=== PATIENT | female | born 1965 | race Hispanic/Latino ===

== ENCOUNTER 2018-02-19 13:55 | Inpatient (IN) | payer MEDICARE, BC ==
[~2018-02-19] VITALS: Ht 157.5 cm; Wt 96.2 kg
[~2018-02-19 13:55] MED LIST: ALDACTONE50 MG PO; FUROSEMIDE40 MG PO; PANTOPRAZOLE SO40 MG PO; PRILOSEC40 MG PO; URSODIOL300 MG PO; ZINC SULFATE220 MG PO
[2018-02-19] MEDS ORDERED: ONDANSETRON HCL INJ 2 MG/ML VIAL IV STA (14:40)
[2018-02-19] MEDS ORDERED: MORPHINE SULFATE INJ 4 MG/ML INJ IV STA (14:40)
[2018-02-19] MEDS ORDERED: SODIUM CHLORIDE 0.9% 1000ML 1,000 ML IV STA (14:40)
[2018-02-19] MEDS ORDERED: PANTOPRAZOLE 40 MG 10ML VIAL IV STA (14:40)
[2018-02-19] MEDS ORDERED: PIPER-TAZ 3.375 GM 50 ML IV ONE (14:45)
[2018-02-19] MEDS ORDERED: IBUPROFEN 600 MG TAB PO STA (15:11)
[2018-02-19] MEDS ORDERED: LOPERAMIDE HCL 2 MG CAP PO ONE (15:15)
[2018-02-19 15:27] LABS: CLARITY,URINE SL CLOUDY (CLEAR); COLOR,URINE RED (YELLOW); LEUKOCYTE ESTERASE ,URINE NEGATIVE (NEGATIVE)
[2018-02-19 15:28] LABS: BILIRUBIN,URINE 2+ (NEGATIVE); KETONES,URINE 1+ (NEGATIVE); PROTEIN,URINE DIPSTICK TRACE (NEGATIVE); URINE UROBILINOGEN 4 mg/dL (0.2 - 1)
[2018-02-19 15:29] LABS: NITRITE,URINE POSITIVE (NEGATIVE)
[2018-02-19 15:49] LABS: EPITHELIAL CELLS,URINE MODERATE /LPF
[2018-02-19 15:51] LABS: BACTERIA,URINE RARE /HPF; RBC,URINE 21-50 /HPF (0-5); WBC,URINE (MAN) 0-5 /HPF (0-5)
[2018-02-19 15:55] LABS: ALANINE AMINOTRANSFERASE 27 IU/L (0-55); ALBUMIN 2.6 g/dL (3.5-5.0); ALBUMIN/GLOBULIN RATIO 0.7 (0.8-2.0); ALKALINE PHOSPHATASE 101 IU/L (40-150); AMYLASE 79 U/L (25-125); ANION GAP 11.3 mmol/L (8-16); BLOOD UREA NITROGEN 7 mg/dL (7-26); BUN/CREATININE RATIO 15 (6-25); CALCIUM 7.9 mg/dL (8.4-10.2); CARBON DIOXIDE 20 mmol/L (22-29); CHLORIDE 107 mmol/L (98-107); CREATININE, SERUM 0.47 mg/dL (0.57-1.11); EST GLOMERULAR FILTRATION RATE > 60 ML/MIN (60-); GLUCOSE 89 mg/dL (74-118); LIPASE 16 U/L (8-78); POTASSIUM 4.3 mmol/L (3.5-5.1); SODIUM 134 mmol/L (136-145)
[2018-02-19 16:15] LABS: BASOPHILS % 0.4 % (0.0-1.0); EOSINOPHILS % 0.2 % (0.0-6.0); HEMATOCRIT 26.9 % (34.2-44.1); HEMOGLOBIN 9.2 g/dL (12.0-16.0); LYMPHOCYTES # (AUTO) 0.3 (1.0-3.2); LYMPHOCYTES % 5.3 % (18.0-39.1); MEAN CORPUSCULAR HEMOGLOBIN 35.9 pg (28-32); MEAN CORPUSCULAR HGB CONC 34.2 g/dL (31-35); MEAN CORPUSCULAR VOLUME 105.1 fL (81-99); MONOCYTES # (AUTO) 0.5 (0.2-0.8); MONOCYTES % 9.1 % (4.4-11.3); NEUTROPHILS # (AUTO) 4.1 (2.1-6.9); NEUTROPHILS % 84.2 % (38.7-80.0); RED BLOOD COUNT 2.56 x10e6/uL (3.6-5.1); RED CELL DISTRIBUTION WIDTH 15.7 % (11.7-14.4)
--- NOTE | 2018-02-19 16:23 | Diagnostic Imaging Report ---
EXAM: Single AP view of the chest (Portable). COMPARISON: Chest radiograph 03/16/2017 INDICATION: \S\ERMD ORDER \[id number] \S\1530 \S\Y FINDINGS: Single portable AP view of the chest. The visualized bones and soft tissues, cardiac silhouette lungs, pleura appear unchanged. IMPRESSION: 1. Lines/tubes: None 2. Stable moderate enlargement of the cardiac silhouette with associated interstitial edema. 3. More confluent airspace opacity in the medial right lower lobe likely due to edema rather than pneumonia. Continue to follow-up for evaluation of developing consolidation. Signed by: Dr. Kailee Ceja M.D. on 02/19/2018 4:20 PM
[2018-02-19 16:31] LABS: INR 2.03; PROTHROMBIN TIME 21.6 seconds (11.9-14.5)
[2018-02-19 16:32] LABS: PARTIAL THROMBOPLASTIN TIME 46.2 seconds (23.8-35.5)
[2018-02-19 16:33] LABS: PLATELET COUNT 18 x10e3/uL (140-360)
[2018-02-19] MEDS ORDERED: SODIUM CHLORIDE 0.9% 1000ML 1,000 ML ONE (17:16)
--- NOTE | 2018-02-19 17:24 | Diagnostic Imaging Report ---
EXAM: CT Abdomen and Pelvis WITHOUT contrast INDICATION: \S\ABD PAIN AND FEVER \S\[id number] \S\1614 COMPARISON: CT abdomen and pelvis 03/13/2017 TECHNIQUE: Abdomen and pelvis were scanned utilizing a multidetector helical scanner from the lung base to the pubic symphysis without administration of IV contrast. Absence of intravenous contrast decreases sensitivity for detection of focal lesions and vascular pathology. Coronal and sagittal reformations were obtained. Routine protocol was performed. IV CONTRAST: None. ORAL CONTRAST: Water RADIATION DOSE: Total DLP: 684.6 mGy*cm Estimated effective dose: (DLP x 0.015 x size factor) mSv COMPLICATIONS: None FINDINGS: LINES and TUBES: None. LOWER THORAX: 2.4 cm water attenuation nodular density adjacent to the left ventricular apex on series 2, image 10 is increased since prior exam which measured 1.2 cm and may represent loculated fluid. Trace pericardial effusion. Small hiatal hernia, unchanged. HEPATOBILIARY: Cirrhosis. No focal hepatic lesions on limited evaluation due to lack of IV contrast. No biliary ductal dilation. GALLBLADDER: Cholecystectomy. SPLEEN: Splenomegaly, unchanged. PANCREAS: No focal masses or ductal dilatation. ADRENALS: No adrenal nodules KIDNEYS/URETERS: No hydronephrosis. No cystic or solid mass lesions. 1 mm right inferior pole and few 2 mm left renal calcified stones. GI TRACT: No abnormal distention or evidence of bowel obstruction. Wall thickening cannot be evaluated due to lack of oral contrast. Appendix is not visualized. PELVIC ORGANS/BLADDER: Hysterectomy. Urinary bladder appears unremarkable. LYMPH NODES: Multiple mildly enlarged noncalcified gastrohepatic, periportal, perigastric lymph nodes measuring up to 1.7 cm remain unchanged. VESSELS: Main portal vein is dilated measuring 1.8 cm in diameter. Mild scattered atherosclerotic calcifications of the abdominal aorta. PERITONEUM / RETROPERITONEUM: Unchanged moderate sized low-attenuation ascites throughout the abdomen and pelvis. No free air. BONES: Unremarkable. SOFT TISSUES: Unremarkable. IMPRESSION: 1. Persistent moderate amount of low-attenuation ascites. No new loculated fluid collections in the abdomen and pelvis. 2. Cirrhosis with portal hypertension manifested by splenomegaly and dilated main portal vein, unchanged. 3. Bilateral nonobstructing nephrolithiasis. Signed by: Dr. Kailee Ceja M.D. on 02/19/2018 5:21 PM
[2018-02-19] MEDS ORDERED: SODIUM CHLORIDE 0.9% 1000ML 1,000 ML IV ONE (18:00)
[2018-02-19] MEDS ORDERED: RIFAMPIN300 MG PO (18:25)
[2018-02-19] MEDS ORDERED: LACTULOSE20 GM/30 M PO (18:25)
[2018-02-19 18:33] LABS: EOSINOPHILS % (MANUAL) 1 % (0-7); LYMPHOCYTES % (MANUAL) 7 % (19-48); MONOCYTES % (MANUAL) 9 % (3.4-9.0); NEUTROPHILS % (MANUAL) 83 % (40-74)
[2018-02-19 18:35] LABS: PLATELET ESTIMATE MARKEDLY DECREASED; PLATELET MORPHOLOGY COMMENT NORMAL
[2018-02-19 18:37] LABS: ANISOCYTOSIS SLIGHT; RBC MORPHOLOGY COMMENT NORMAL
[2018-02-19] MEDS ORDERED: CHOLESTYRAMINE 4 GM PACKET PO PRN (18:45)
[2018-02-19 20:00] VITALS: BP 110/56
[2018-02-19 20:10] VITALS: BP 110/56
[2018-02-19] MEDS: FUROSEMIDE INJ 10 MG/ML 4 ML VIAL IV SCH (21:17)
[2018-02-19] MEDS: SODIUM CHLORIDE 0.9% 1000ML 1,000 ML IV SCH (21:17)
[2018-02-19] MEDS: MORPHINE SULFATE 2 MG/ML SYR IV PRN (21:31)
[2018-02-20] VITALS (8 sets, daily range): BP systolic 98–132; BP diastolic 50–67
[2018-02-20] MEDS: PIPER-TAZ 3.375 GM 50 ML IV SCH ×4 (01:55→17:50)
[2018-02-20 06:07] LABS: BASOPHILS % 0.2 % (0.0-1.0); EOSINOPHILS % 0.4 % (0.0-6.0); HEMATOCRIT 25.9 % (34.2-44.1); HEMOGLOBIN 8.6 g/dL (12.0-16.0); LYMPHOCYTES # (AUTO) 0.4 (1.0-3.2); MEAN CORPUSCULAR HEMOGLOBIN 36.1 pg (28-32); MEAN CORPUSCULAR HGB CONC 33.2 g/dL (31-35); MEAN CORPUSCULAR VOLUME 108.8 fL (81-99); MONOCYTES # (AUTO) 0.6 (0.2-0.8); MONOCYTES % 11.3 % (4.4-11.3); NEUTROPHILS # (AUTO) 4.3 (2.1-6.9); NEUTROPHILS % 80.5 % (38.7-80.0); RED BLOOD COUNT 2.38 x10e6/uL (3.6-5.1); RED CELL DISTRIBUTION WIDTH 16.2 % (11.7-14.4)
[2018-02-20 06:23] LABS: INR 2.28; PROTHROMBIN TIME 23.6 seconds (11.9-14.5)
[2018-02-20 06:24] LABS: PARTIAL THROMBOPLASTIN TIME 53.2 seconds (23.8-35.5)
[2018-02-20 06:29] LABS: ALANINE AMINOTRANSFERASE 26 IU/L (0-55); ALBUMIN 2.4 g/dL (3.5-5.0); ALBUMIN/GLOBULIN RATIO 0.6 (0.8-2.0); ALKALINE PHOSPHATASE 102 IU/L (40-150); ANION GAP 10.2 mmol/L (8-16); BLOOD UREA NITROGEN 9 mg/dL (7-26); BUN/CREATININE RATIO 18 (6-25); CALCIUM 7.5 mg/dL (8.4-10.2); CARBON DIOXIDE 22 mmol/L (22-29); CHLORIDE 111 mmol/L (98-107); CREATININE, SERUM 0.51 mg/dL (0.57-1.11); EST GLOMERULAR FILTRATION RATE > 60 ML/MIN (60-); GLUCOSE 101 mg/dL (74-118); POTASSIUM 4.2 mmol/L (3.5-5.1); SODIUM 139 mmol/L (136-145)
[2018-02-20 06:37] LABS: PLATELET COUNT 13 x10e3/uL (140-360)
[2018-02-20] MEDS: SODIUM CHLORIDE 0.9% 1000ML 1,000 ML IV SCH ×2 (07:50→20:43)
[2018-02-20 07:53] LABS: BAND NEUTROPHILS % (MANUAL) 4 %; EOSINOPHILS % (MANUAL) 1 % (0-7); LYMPHOCYTES % (MANUAL) 6 % (19-48); METAMYELOCYTES % (MANUAL) 1 % (0-0); MONOCYTES % (MANUAL) 5 % (3.4-9.0); NEUTROPHILS % (MANUAL) 83 % (40-74); PLATELET ESTIMATE MARKEDLY DECREASED; PLATELET MORPHOLOGY COMMENT FEW LARGE
[2018-02-20 07:54] LABS: HYPOCHROMASIA MODERATE; RBC MORPHOLOGY COMMENT NORMAL
[2018-02-20] MEDS ORDERED: URSODIOL 300 MG CAP PO SCH (09:00)
[2018-02-20] MEDS: URSODIOL 500 MG PO SCH (09:00)
[2018-02-20] MEDS ORDERED: PANTOPRAZOLE 40 MG 10ML VIAL IV SCH (09:00)
[2018-02-20] MEDS: SPIRONOLACTONE 25 MG TAB PO SCH (09:00)
[2018-02-20] MEDS: FUROSEMIDE INJ 10 MG/ML 4 ML VIAL IV SCH (09:00)
--- NOTE | 2018-02-20 09:06 | Consultation ---
DATE OF CONSULTATION: CARDIOLOGY CONSULTATION REQUESTING PHYSICIAN: Dr. Kapoor REASON FOR CONSULTATION: Possible pericardial effusion. HISTORY OF PRESENT ILLNESS: Ms. Nicolás Greene is a 52-year-old lady with past medical history as listed below. Reportedly has been experiencing chest pain for the last 3 days. The patient states that it is a constant discomfort all across her chest. She has also been having some vomiting, diarrhea and nausea for the last 3 days. She also has a headache and backache. Has some abdominal discomfort. She has a history of cirrhosis and reportedly is waiting for a liver transplant and enrolled at [facility]. She was found to have a fatty liver. REVIEW OF SYMPTOMS CONSTITUTIONAL: Has some fatigue and weakness. HEENT: No headache, blurring of vision, seizures, syncope. CARDIOVASCULAR: Has chest pain. Has dyspnea. Has some orthopnea. No PND. RESPIRATORY: No cough. Has had some fever. No expectoration. GI: Had some abdominal discomfort. Has nausea, vomiting and diarrhea. : No dysuria, frequency or incontinence. ALLERGIES: IODINE. MEDICATIONS: See list. PAST MEDICAL HISTORY 1. History of primary biliary cirrhosis of liver on a transplant list at [facility]. States she has fatty liver. 2. History of thrombocytopenia. SOCIAL HISTORY: Does not smoke or drink. FAMILY HISTORY: Noncontributory. PHYSICAL EXAMINATION VITALS: Heart rate is 82. Blood pressure 118/57. Respiratory rate is 18. Temperature is 96.7. GENERAL: Moderately built and nourished lady. Awake, alert, not in any obvious distress. HEENT: Atraumatic. NECK: No JVD, bruit, thyromegaly or lymphadenopathy. CHEST: Decreased air entry at the bases. No adventitious sounds appreciated. CARDIOVASCULAR: First and 2nd heart sounds heard. No murmurs, rubs or gallops appreciated. ABDOMEN: Distended, possible ascites. Nontender. EXTREMITIES: Has 2 to 3+ edema. LABS: Sodium is 139, potassium 4.0, chloride is 111. Bicarb is 22. BUN is 9, creatinine 0.5. Glucose 101. Hemoglobin is 8.6, hematocrit is 25.9, platelets are 13. White count is 5.2. INR 2.2. Total bilirubin is 15.48. AST is 49. ALT is 26. Alk phos is 102. UA positive for nitrates. Troponin is normal. EKG shows sinus rhythm at 96 beats per minute, left anterior fascicular block. Nonspecific ST-T changes. Chest x-ray positive for consolidation in the right lower lobe. CT abdomen and pelvis: No acute disease. IMPRESSION 1. Chest pain. 2. Cirrhosis of liver. 3. Thrombocytopenia. 4. Fluid overload. 5. Urinary tract infection/cystitis. PLAN 1. Continue with diuretics. 2. Get echocardiogram to assess LV function and valvular function. Rule out pericardial effusion. 3. Patient is also on spironolactone, can continue the same. 4. Continue with other medications. 5. GI workup as indicated. Job#: [id number]
[2018-02-20] MEDS: POTASSIUM CHLORIDE 20 MEQ TAB CR PO SCH (09:48)
[2018-02-20] MEDS: PANTOPRAZOLE SOD 40 MG TABEC PO SCH (09:56)
[2018-02-20] MEDS: FUROSEMIDE 40 MG TAB PO SCH (09:57)
[2018-02-20] MEDS: ACETAMINOPHEN 325 MG TAB PO PRN (10:04)
[2018-02-20] MEDS ORDERED: RIFAMPIN 300 MG CAP PO SCH (12:00)
--- NOTE | 2018-02-20 14:16 | History and Physical ---
LOCATION: ER room 4. PRESENTING COMPLAINT: Fever with nausea, vomiting, and diarrhea for 3 days, got worsened today. HISTORY OF PRESENT ILLNESS: A 52-year-old female who was admitted from ER. Patient was brought to ER from home for fever with nausea, vomiting, and diarrhea for 3 days, got worsened today. Patient says she started watery diarrhea 3 days ago, was more than 5 bowel movements daily. She did not have any blood with stool or black stool. Patient had started fever yesterday 102 at home along with nausea and vomiting. She has vomited once this morning. Patient also complained of pain in her abdomen diffusely along with low back pain. She denies any trace of blood with vomitus. Patient had mild dysuria going on for months as per her statement. Denies any passage of blood with urine. She was on furosemide and spironolactone for cirrhosis with ascites. Patient had last abdominal paracentesis August of this year as per patient's statement. Patient's daughter interpreted for the patient. Patient only speaks Macedonian. Daughter is at bedside now. Patient also follows with [facility] for her cirrhosis of liver. Patient had general increment in her abdominal girth and leg swelling for last 1 month as per patient statement. Patient had traveled to [place] more than a month ago. At that time, she did not have any diarrhea. Patient denies any similar illness in the family. She also denies any consumption of unusual food. Patient denied any chest pain, shortness of breath, or palpitation at the present time. REVIEW OF SYSTEMS CONSTITUTIONAL: Fever as per HPI, mild chills and rigor along with fever and generalized weakness. ENT: No nasal congestion, no visual disturbance, and no earache. CARDIOVASCULAR: No chest pain, palpitation, or shortness of breath. PULMONARY: No cough, no hemoptysis. GI: Diffuse abdominal pain with watery diarrhea and nausea and vomiting as per HPI. No passage of bloody stool or black stool. No passage of blood with vomitus. : No hematuria. Mild dysuria for months as per patient's statement. MUSCULOSKELETAL, SKIN, LYMPHORETICULAR: Chronic low back pain. No other joint pain. No joint swelling. No skin rash. No swollen glands. NEUROLOGICAL: No loss of consciousness, seizure, or headache. 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 HISTORY OF PAST SURGERY: Hysterectomy and cholecystectomy. ALLERGIES: IODINE PER PATIENT'S NOTE. HOME MEDICATIONS: Furosemide 20 mg daily, spironolactone 50 mg daily, lactulose 15 gram p.o. b.i.d., and rifaximin 550 mg b.i.d. as per patient's daughter's statement. SOCIAL HISTORY: Patient lives at [place] with her family. HABITS: Denies smoking, drinking, or substance abuse history. FAMILY HISTORY: No positive family history of CAD or chronic liver disease. PHYSICAL EXAMINATION VITAL SIGNS: Blood pressure 153/79 at presentation, pulse 96, temperature 102.9, respirations 22, and SpO2 100% at room air. GENERAL: Alert, in moderate distress due to pain and nausea and vomiting. HEENT: NC, AT. Pupils equally reacting. Scleral icterus present bilaterally. No pallor. Oral mucosa moist. Coated tongue. small NECK: No JVD, no carotid bruit, no lymphadenopathy, no thyromegaly. HEART: S1 and S2 regular. No murmur. Tachycardia present. LUNGS: Air entry equal on both sides. No crackles. No rhonchi. ABDOMEN: Distended with ascites. Mild diffuse tenderness. No palpable masses. Bowel sounds active in all quadrants. EXTREMITIES: Bilateral ankle edema present, 1+. No cyanosis. NEUROLOGICAL: Motor grossly equal on both sides. No hepatic asterixis present. LABORATORY DATA: CBC: WBC 4.92, hemoglobin 9.2, hematocrit 23.9, platelets 18, MCV 105, RDW 15.7, neutrophils 84, and lymphocytes 5.3. Chemistry panel: Sodium 134, potassium 4.3, chloride 107, CO2 of 20, anion gap of 7, BUN 7, creatinine 0.47, glucose 89, lactic acid 14.9, and calcium 7.9. Total bilirubin 13.3, AST 61, ALT 27, alkaline phosphatase 101, total protein 6.5, bilirubin 2.6, globulin 3.9, amylase 79, and lipase 16. PT 21.6, INR 2.03. and PTT 46.2. Hemolysis, protein trace, glucose negative, ketone 1+, blood 4+, nitrate positive, bilirubin 2+, leukocyte esterase negative, rbc's 21-50, and wbc's 0-5. MICROBIOLOGY DATA: Blood culture and urine culture in progress. RADIOLOGICAL DATA: X-ray chest single view: Cardiac shadow with associated interstitial edema, more confluent airspace opacity in the medial right lower lobe, likely due to edema rather than pneumonia. CT abdomen and pelvis without contrast, lower thorax 2.4 cm, water attenuation noted with density in the left ventricular apex, may represent loculated fluid, trace pericardial effusion, small hiatal hernia unchanged, hepatobiliary cirrhosis, no focal hepatic lesion or lesion, limited evaluation due to lack of IV contrast, no biliary ductal dilatation, status post cholecystectomy, splenomegaly unchanged, pancreas no mass noted, kidneys no hydronephrosis and no cystic or solid lesion, 1-mm right inferior pole renal calcified stone. Urinary bladder appears unremarkable. Moderate amount of low-attenuation ascites. Cirrhosis with portal hypertension manifested by splenomegaly. Bilaterally nonobstructive nephrolithiasis. ASSESSMENT AND PLAN 1. High-spiking fever with nausea, vomiting, diarrhea, and abdominal pain. Patient had history of spontaneous bacterial peritonitis in the past. We would continue the patient on IV antibiotics. Follow culture report. We would request GI evaluation by Dr. Chun who is familiar with the patient from the past hospitalization 1 year ago. Patient follows up with [facility]. Patient had last abdominal paracentesis in August this year as per patient's statement at [facility]. 2. Probable urinary tract infection: Urinalysis showed nitrite positive, but wbc's 0. Patient has macroscopic hematuria. CT abdomen is positive for nonobstructive nephrolithiasis. Her hematuria is likely secondary to thrombocytopenia. We will monitor for now. Follow the urine culture report. Continue IV antibiotic empirically. 3. Severe thrombocytopenia: Patient has a history of chronic thrombocytopenia. She is not obviously bleeding from anywhere. We would monitor for now. We would follow recommendation by gastroenterology if needed or consult hematology Dr. Pena who is familiar with the patient from past hospitalization. 4. Coagulopathy: Patient's INR is more than 2 without any anticoagulant, likely coagulopathy secondary to cirrhosis of liver. We would monitor for now. We would hold any vitamin K for now. 5. Hyperbilirubinemia, appears conjugated hyperbilirubinemia with bilirubinuria due to cirrhosis of liver. Patient's CT abdomen is negative for any common bile duct obstruction or stone. She is status post cholecystectomy. We would check her direct bilirubin and follow with gastroenterology. 6. Portal hypertension, ascites, and esophageal varices: Patient's hemoglobin is 9.2 with macrocytic anemia. We would monitor for now. Check stool for occult blood. She does not need any packed RBC transfusion at this present time. Platelet transfusion would depend upon recommendation by offset label rewinder and marketing program manager. Patient did not pass any blood stool or vomitus as per her report. 7. Advanced directives: Patient is FULL CODE for now. Discharge plan would depend upon patient's response to treatment. Patient's prognosis is guarded in view of her advanced cirrhosis with critical thrombocytopenia and coagulopathy. Job#: [id number] NÉSTOR MTDD
[2018-02-20] MEDS ORDERED: OCTREOTIDE ACETATE 0.05 MG/ML AMP IV ONE (16:23)
[2018-02-20] MEDS ORDERED: LACTULOSE SYRUP 20 GM/30 ML UDC PO SCH (17:00)
[2018-02-20] MEDS ORDERED: PHYTONADIONE 10 MG/ML AMP SQ ONE ×2 (17:15→19:45)
[2018-02-20] MEDS: ONDANSETRON HCL INJ 2 MG/ML VIAL IV PRN (18:38)
[2018-02-20] MEDS: RIFAXIMIN 550 MG TABLET PO SCH (21:08)
[2018-02-20] MEDS ORDERED: SODIUM CHLORIDE 0.9% 50ML 50 ML ONE (22:54)
[2018-02-21] VITALS (7 sets, daily range): BP systolic 113–128; BP diastolic 56–64
[2018-02-21] MEDS: PIPER-TAZ 3.375 GM 50 ML IV SCH ×4 (05:05→17:19)
[2018-02-21 06:57] LABS: BASOPHILS % 0.3 % (0.0-1.0); EOSINOPHILS # (AUTO) 0.1 (0.0-0.4); EOSINOPHILS % 3.1 % (0.0-6.0); HEMATOCRIT 25.3 % (34.2-44.1); HEMOGLOBIN 8.2 g/dL (12.0-16.0); LYMPHOCYTES # (AUTO) 0.6 (1.0-3.2); LYMPHOCYTES % 14.9 % (18.0-39.1); MEAN CORPUSCULAR HEMOGLOBIN 36.1 pg (28-32); MEAN CORPUSCULAR HGB CONC 32.4 g/dL (31-35); MEAN CORPUSCULAR VOLUME 111.5 fL (81-99); MONOCYTES # (AUTO) 0.6 (0.2-0.8); MONOCYTES % 14.7 % (4.4-11.3); NEUTROPHILS # (AUTO) 2.5 (2.1-6.9); NEUTROPHILS % 66.2 % (38.7-80.0); RED BLOOD COUNT 2.27 x10e6/uL (3.6-5.1); RED CELL DISTRIBUTION WIDTH 16.3 % (11.7-14.4)
[2018-02-21 07:15] LABS: PLATELET COUNT 23 x10e3/uL (140-360)
[2018-02-21 07:34] LABS: ALANINE AMINOTRANSFERASE 25 IU/L (0-55); ALBUMIN 2.4 g/dL (3.5-5.0); ALBUMIN/GLOBULIN RATIO 0.7 (0.8-2.0); ALKALINE PHOSPHATASE 94 IU/L (40-150); BLOOD UREA NITROGEN 11 mg/dL (7-26); BUN/CREATININE RATIO 20 (6-25); CALCIUM 7.5 mg/dL (8.4-10.2); CARBON DIOXIDE 22 mmol/L (22-29); CHLORIDE 110 mmol/L (98-107); CREATININE, SERUM 0.56 mg/dL (0.57-1.11); EST GLOMERULAR FILTRATION RATE > 60 ML/MIN (60-); GLUCOSE 98 mg/dL (74-118); SODIUM 137 mmol/L (136-145)
[2018-02-21] MEDS: PANTOPRAZOLE SOD 40 MG TABEC PO SCH (07:55)
[2018-02-21 07:58] LABS: ANISOCYTOSIS SLIGHT; HYPOCHROMASIA MODERATE; PLATELET ESTIMATE MARKEDLY DECREASED; PLATELET MORPHOLOGY COMMENT NORMAL; RBC MORPHOLOGY COMMENT NORMAL
[2018-02-21] MEDS: RIFAXIMIN 550 MG TABLET PO SCH ×2 (08:05→20:52)
[2018-02-21] MEDS: FUROSEMIDE 40 MG TAB PO SCH (08:05)
[2018-02-21] MEDS: POTASSIUM CHLORIDE 20 MEQ TAB CR PO SCH (08:05)
[2018-02-21] MEDS: SPIRONOLACTONE 25 MG TAB PO SCH (08:05)
[2018-02-21] MEDS: URSODIOL 500 MG PO SCH (09:00)
[2018-02-21] MEDS: MORPHINE SULFATE 2 MG/ML SYR IV PRN (10:32)
[2018-02-21] MEDS: ONDANSETRON HCL INJ 2 MG/ML VIAL IV PRN (10:32)
[2018-02-21] MEDS: SODIUM CHLORIDE 0.9% 1000ML 1,000 ML IV SCH ×2 (11:10→22:43)
[2018-02-21] MEDS: METOCLOPRAMIDE HCL 10 MG TAB PO SCH ×4 (12:15→21:01)
[2018-02-21] MEDS ORDERED: PHYTONADIONE 10 MG/ML AMP SQ NR (12:15)
--- NOTE | 2018-02-21 14:41 | Consultation ---
DATE OF CONSULTATION: ROOM NUMBER: [id number] CHIEF COMPLAINT: Vomiting, diarrhea. REASON FOR CONSULTATION: Vomiting, diarrhea. HISTORY OF PRESENT ILLNESS: Patient is a 52-year-old female with past medica history of primary biliary cirrhosis of the liver, severe primary idiopathic thrombocytopenia and ascites, who presented to the ED with vomiting, diarrhea since last Tuesday along with the fever. When she had first came in, she did not have any melena; however, she reports having some black stools this morning. On review of labs, patient has a hemoglobin of 8.6. Patient states that she has had a history of autoimmune cirrhosis for about 14 years and she goes to the [facility] and is also on the transplant list. She had an EGD and colonoscopy about 2 weeks ago outpatient with Dr. Hoffman. On EGD, there was reflux and gastritis found. On colonoscopy, there were nonbleeding hemorrhoids. However, mucosa of the colon was normal. Patient states she does not take any medicine for her primary biliary cirrhosis and she has never had any overt signs of bleeding before. She is currently jaundiced. However, she denies any hematemesis or hematochezia. She denies any cough, joint pains or skin rash. MEDICATIONS: She has been on 1. Zosyn. 2. Lasix. 3. Protonix 40 mg. 4. Spironolactone 50 mg daily. 5. Lactulose 20 g. 6. Questran 4 g. ALLERGIES: SEE NURSE'S NOTES. SOCIAL HISTORY: No alcohol use, drug use or recreational drug use. FAMILY HISTORY: Noncontributory. PHYSICAL EXAM APPEARANCE: Alert, oriented times 3, in slight distress. EYES: Scleral icterus. Pupils midline. No lesions. NECK: Normal inspection. Neck supple. No JVD, no carotid bruit. CARDIOVASCULAR: Normal heart rate and rhythm. Heart sounds normal. Pulses normal. Rate and rhythm normal. No murmurs. RESPIRATORY: No respiratory distress. Breath sounds normal. Chest nontender. No accessory muscle use, decreased air movement or rales. ABDOMEN: Soft, slightly distended with some tenderness. No rebound tenderness. Normal bowel sounds. SKIN: Abnormal skin color, jaundiced. No rash. Normal skin turgor. EXTREMITIES: Normal range of motion. No calf tenderness. No lower extremity edema. NEURO: Alert, oriented times 3. No cranial nerve deficit. No motor deficit. No sensory deficit. Reflex normal. LABS: Hemoglobin 9.2, MCV 105.1, platelet count 18, neutrophils 84.2. INR 2.28. PT 23.6. AST 49, ALT 26, total bilirubin 15.4, amylase 79, lipase 16. Review of abdominal CT, persistent moderate amount of ascites. Cirrhosis with portal hypertension manifested by splenomegaly and dilated main portal vein. Bilateral nonobstructing nephrolithiasis. ASSESSMENT 1. Reported melena times 1. 2. History of primary biliary cirrhosis of the liver. 3. Severe primary idiopathic thrombocytopenia. 4. Anemia. 5. Hyperbilirubinemia. 6. History of ascites. PLAN 1. Patient has a recent EGD and colonoscopy done 2 weeks ago. At this point, we will monitor for any signs of bleeding and follow up results for fecal occult blood. 2. Started patient on octreotide. 3. Monitor H and H. Transfuse if less than 7. 4. Continue Protonix, lactulose, spironolactone, and furosemide. Monitor potassium levels. 5. We will collect stool cultures for diarrhea. Thank you for consulting. We will follow. Dictated By: DICKSON Suarez Patient seen and examined. Agree with amended documentation as above. Job#: [id number] CQ MTDD
[2018-02-22] VITALS (9 sets, daily range): BP systolic 118–151; BP diastolic 55–66
[2018-02-22] MEDS: PIPER-TAZ 3.375 GM 50 ML IV SCH ×5 (00:10→23:30)
[2018-02-22 06:51] LABS: BASOPHILS % 0.3 % (0.0-1.0); EOSINOPHILS # (AUTO) 0.1 (0.0-0.4); EOSINOPHILS % 3.1 % (0.0-6.0); HEMATOCRIT 25.7 % (34.2-44.1); HEMOGLOBIN 8.6 g/dL (12.0-16.0); LYMPHOCYTES # (AUTO) 0.6 (1.0-3.2); LYMPHOCYTES % 20.5 % (18.0-39.1); MEAN CORPUSCULAR HEMOGLOBIN 36.3 pg (28-32); MEAN CORPUSCULAR HGB CONC 33.5 g/dL (31-35); MEAN CORPUSCULAR VOLUME 108.4 fL (81-99); MONOCYTES # (AUTO) 0.4 (0.2-0.8); NEUTROPHILS # (AUTO) 1.8 (2.1-6.9); NEUTROPHILS % 61.4 % (38.7-80.0); RED BLOOD COUNT 2.37 x10e6/uL (3.6-5.1); RED CELL DISTRIBUTION WIDTH 16.1 % (11.7-14.4)
[2018-02-22 06:57] LABS: PLATELET COUNT 19 x10e3/uL (140-360)
[2018-02-22 08:14] LABS: EOSINOPHILS % (MANUAL) 3 % (0-7); LYMPHOCYTES % (MANUAL) 20 % (19-48); MONOCYTES % (MANUAL) 9 % (3.4-9.0); NEUTROPHILS % (MANUAL) 68 % (40-74)
[2018-02-22 08:15] LABS: PLATELET ESTIMATE MARKEDLY DECREASED; PLATELET MORPHOLOGY COMMENT NORMAL; RBC MORPHOLOGY COMMENT ABNORMAL
[2018-02-22] MEDS: URSODIOL 500 MG PO SCH (08:40)
[2018-02-22] MEDS: PANTOPRAZOLE SOD 40 MG TABEC PO SCH (09:15)
[2018-02-22] MEDS: RIFAXIMIN 550 MG TABLET PO SCH ×2 (09:15→20:47)
[2018-02-22] MEDS: FUROSEMIDE 40 MG TAB PO SCH (09:15)
[2018-02-22] MEDS: SPIRONOLACTONE 25 MG TAB PO SCH (09:15)
[2018-02-22] MEDS: POTASSIUM CHLORIDE 20 MEQ TAB CR PO SCH (09:15)
[2018-02-22] MEDS: METOCLOPRAMIDE HCL 10 MG TAB PO SCH ×2 (09:24→11:52)
[2018-02-22] MEDS ORDERED: SODIUM CHLORIDE 0.9% 250ML 250 ML ONE (10:29)
[2018-02-22 11:48] LABS: OCCULT BLOOD STOOL POSITIVE (NEGATIVE); WBC,FECAL (FECAL LACTOFERRIN) POSITIVE (NEGATIVE)
[2018-02-22] MEDS: SODIUM CHLORIDE 0.9% 1000ML 1,000 ML IV SCH (11:52)
[2018-02-22] MEDS: METRONIDAZOLE 250 MG TAB PO SCH ×3 (12:35→23:30)
[2018-02-22 13:19] LABS: C DIFFICILE TOXIN A&B AMP PROB NEGATIVE (NEGATIVE)
[2018-02-22] MEDS: DIPHENOXYLATE/ATROPINE TAB PO SCH (17:51)
[2018-02-22] MEDS: CHOLESTYRAMINE 4 GM PACKET PO SCH ×2 (17:51→20:47)
[2018-02-23] VITALS (7 sets, daily range): BP systolic 110–146; BP diastolic 52–64
[2018-02-23] MEDS: SODIUM CHLORIDE 0.9% 1000ML 1,000 ML IV SCH (00:47)
[2018-02-23] MEDS: METRONIDAZOLE 250 MG TAB PO SCH ×3 (06:00→18:30)
[2018-02-23] MEDS: PIPER-TAZ 3.375 GM 50 ML IV SCH ×3 (06:14→18:30)
[2018-02-23] MEDS: PANTOPRAZOLE SOD 40 MG TABEC PO SCH (07:55)
[2018-02-23] MEDS: URSODIOL 500 MG PO SCH (09:00)
[2018-02-23] MEDS: FUROSEMIDE 40 MG TAB PO SCH (10:15)
[2018-02-23] MEDS: CHOLESTYRAMINE 4 GM PACKET PO SCH ×4 (10:15→21:00)
[2018-02-23] MEDS: SPIRONOLACTONE 25 MG TAB PO SCH (10:15)
[2018-02-23] MEDS: DIPHENOXYLATE/ATROPINE TAB PO SCH ×2 (10:15→17:00)
[2018-02-23] MEDS: RIFAXIMIN 550 MG TABLET PO SCH ×2 (10:15→21:00)
[2018-02-23] MEDS: POTASSIUM CHLORIDE 20 MEQ TAB CR PO SCH (10:16)
[2018-02-23] MEDS ORDERED: MORPHINE SULFATE 2 MG/ML SYR IV PRN (15:00)
[2018-02-23] MEDS ORDERED: DIPHENOXYLATE/ATROPINE TAB PO PRN (18:45)
[2018-02-23] MEDS: ACETAMINOPHEN 325 MG TAB PO PRN (22:21)
[2018-02-24 00:15] VITALS: BP 132/60
[2018-02-24 04:00] VITALS: BP 135/60
[2018-02-24 05:44] LABS: BASOPHILS % 0.3 % (0.0-1.0); EOSINOPHILS # (AUTO) 0.1 (0.0-0.4); EOSINOPHILS % 3.3 % (0.0-6.0); HEMATOCRIT 26.2 % (34.2-44.1); HEMOGLOBIN 8.5 g/dL (12.0-16.0); LYMPHOCYTES # (AUTO) 0.6 (1.0-3.2); LYMPHOCYTES % 18.1 % (18.0-39.1); MEAN CORPUSCULAR HEMOGLOBIN 35.3 pg (28-32); MEAN CORPUSCULAR HGB CONC 32.4 g/dL (31-35); MEAN CORPUSCULAR VOLUME 108.7 fL (81-99); MONOCYTES # (AUTO) 0.5 (0.2-0.8); MONOCYTES % 16.8 % (4.4-11.3); NEUTROPHILS # (AUTO) 1.9 (2.1-6.9); NEUTROPHILS % 61.2 % (38.7-80.0); RED BLOOD COUNT 2.41 x10e6/uL (3.6-5.1); RED CELL DISTRIBUTION WIDTH 16.9 % (11.7-14.4)
[2018-02-24 05:59] LABS: PLATELET COUNT 18 x10e3/uL (140-360)
[2018-02-24] MEDS: METRONIDAZOLE 250 MG TAB PO SCH ×2 (06:00)
[2018-02-24] MEDS: PIPER-TAZ 3.375 GM 50 ML IV SCH ×2 (06:00)
[2018-02-24 06:22] LABS: ALANINE AMINOTRANSFERASE 23 IU/L (0-55); ALBUMIN 2.4 g/dL (3.5-5.0); ALBUMIN/GLOBULIN RATIO 0.6 (0.8-2.0); ALKALINE PHOSPHATASE 97 IU/L (40-150); ANION GAP 8.1 mmol/L (8-16); BLOOD UREA NITROGEN 6 mg/dL (7-26); BUN/CREATININE RATIO 11 (6-25); CALCIUM 7.8 mg/dL (8.4-10.2); CARBON DIOXIDE 24 mmol/L (22-29); CHLORIDE 109 mmol/L (98-107); CREATININE, SERUM 0.57 mg/dL (0.57-1.11); EST GLOMERULAR FILTRATION RATE > 60 ML/MIN (60-); GLUCOSE 101 mg/dL (74-118); POTASSIUM 4.1 mmol/L (3.5-5.1); SODIUM 137 mmol/L (136-145)
[2018-02-24 06:23] LABS: EOSINOPHILS % (MANUAL) 4 % (0-7); LYMPHOCYTES % (MANUAL) 23 % (19-48); MONOCYTES % (MANUAL) 16 % (3.4-9.0); NEUTROPHILS % (MANUAL) 56 % (40-74); PLATELET ESTIMATE MODERATELY DECREASED; PLATELET MORPHOLOGY COMMENT FEW GIANT
[2018-02-24 06:24] LABS: ANISOCYTOSIS SLIGHT; HYPOCHROMASIA MODERATE; RBC MORPHOLOGY COMMENT ABNORMAL
[2018-02-24 07:57] VITALS: BP 134/63
[2018-02-24] MEDS: PANTOPRAZOLE SOD 40 MG TABEC PO SCH (08:00)
[2018-02-24] MEDS: FUROSEMIDE 40 MG TAB PO SCH (09:00)
[2018-02-24] MEDS: CHOLESTYRAMINE 4 GM PACKET PO SCH (09:00)
[2018-02-24] MEDS: URSODIOL 500 MG PO SCH (09:00)
[2018-02-24] MEDS: SPIRONOLACTONE 25 MG TAB PO SCH (09:00)
[2018-02-24] MEDS: RIFAXIMIN 550 MG TABLET PO SCH (09:00)
[2018-02-24] MEDS: POTASSIUM CHLORIDE 20 MEQ TAB CR PO SCH (09:00)
--- NOTE | 2018-02-24 11:02 | Discharge Summary ---
She is a 52-year-old female patient of mine who presented to the emergency room with the complaint of vomiting and diarrhea with fever for 3 days. ADMITTING IMPRESSION/DIAGNOSES 1. Urinary tract infection. 2. Gastroenteritis. 3. Suspected bacterial peritonitis. 4. Worsening liver cirrhosis. 5. Portal hypertension. 6. Severe thrombocytopenia. HOSPITAL COURSE: The patient was admitted with the above diagnoses. The patient was treated with IV antibiotics. Zosyn was started. GI, hematology/oncology, and cardiology consultation was done for chest pain. The patient's urine had shown E. coli, which was sensitive to Zosyn. The patient was given antibiotic of Zosyn. The patient had thrombocytopenia. The patient was given a platelet transfusion. The patient was also given IV fluids. Now, upon stabilization the patient will be discharged home on oral Augmentin and Flagyl. The patient had stool for C. diff done, which was negative. The patient will need to continue with her shank paperer, as the patient has thrombocytopenia and decompensated liver failure with cirrhosis of liver and high INR and pro time. For now, the patient will be discharged home on Flagyl and Augmentin. The patient will resume her lactulose as the patient's diarrhea is better. The patient will be discharged home and followed up as an outpatient. FAVIAN BURDEN MD Job#: [id number] [place]
--- NOTE | 2018-02-25 18:19 | Progress Note ---
DATE: February 24, 2018 FOLLOWUP NOTE CHIEF COMPLAINT: Patient was admitted due to nausea, vomiting, and diarrhea. VITAL SIGNS: Reviewed and as per electronic medical record. LABORATORY DATA: Platelet count of 18,000. ASSESSMENT AND PLAN: Ms. Nicolás Greene is a very pleasant 52-year-old female with known history of liver cirrhosis, presently on transplant list, presented with nausea, vomiting, and diarrhea. She has been having 8 to 10 bowel movements. She is started on IV antibiotic with improved symptom. She also developed [id number] thrombocytopenia, requiring platelet transfusion. In the past, she has been on Promacta, however, she stopped taking few weeks ago. At this point, will closely monitor. She is going to be discharged today. Will follow with me in 1 week. Job#: [id number]
== END 2018-02-24 11:46 | disposition home or self-care (01) | DRG 432 ==
LOC: ER 13:55 → ERHOLD 18:31 → IMCU 18:48 → OBSVTOIN 02-20 15:28 → MED/SURG3 02-20 21:16
PROVIDERS: ADMIT Internal Medicine; ATTEND Internal Medicine
PROC: 30233R1 Transfusion of Nonautologous Platelets into Peripheral Vein, Percutaneous Approach (ICD-10-PCS; principal; 2018-02-20)
CPT/HCPCS: 36415; 36430; 71045; 74176; 80053; 81001; 82140; 82150; 82270; 83605; 83630; 83690; 83735; 83880; 84484; 85025; 85610; 85730; 86900; 87040; 87045; 87071; 87086; 87186; 87205; 87493; 93005; 96367; 99284; G0378; J1940; J2270; J2354; J2405; J2543; J3430; J7030; J7050; P9034

== ENCOUNTER 2018-06-06 06:57 | Inpatient (IN) | payer BC, MEDICARE ==
[~2018-06-06] VITALS: Ht 157.5 cm; Wt 93.9 kg
[~2018-06-06 06:57] MED LIST changes: +LACTULOSE20 GM/30 M PO; +RIFAMPIN300 MG PO
[2018-06-06] MEDS ORDERED: IBUPROFEN 600 MG TAB PO STA (07:56)
[2018-06-06 08:06] LABS: BASOPHILS % 0.3 % (0.0-1.0); EOSINOPHILS % 0.4 % (0.0-6.0); HEMATOCRIT 30.8 % (34.2-44.1); HEMOGLOBIN 10.4 g/dL (12.0-16.0); LYMPHOCYTES # (AUTO) 0.3 (1.0-3.2); LYMPHOCYTES % 4.1 % (18.0-39.1); MEAN CORPUSCULAR HEMOGLOBIN 36.5 pg (28-32); MEAN CORPUSCULAR HGB CONC 33.8 g/dL (31-35); MEAN CORPUSCULAR VOLUME 108.1 fL (81-99); MONOCYTES # (AUTO) 0.5 (0.2-0.8); MONOCYTES % 6.1 % (4.4-11.3); NEUTROPHILS # (AUTO) 6.9 (2.1-6.9); NEUTROPHILS % 88.6 % (38.7-80.0); RED BLOOD COUNT 2.85 x10e6/uL (3.6-5.1); RED CELL DISTRIBUTION WIDTH 16.3 % (11.7-14.4)
[2018-06-06 08:13] LABS: INR 1.46; PLATELET COUNT 20 x10e3/uL (140-360); PROTHROMBIN TIME 18.9 seconds (11.9-14.5)
[2018-06-06 08:14] LABS: PARTIAL THROMBOPLASTIN TIME 41.9 seconds (23.8-35.5)
[2018-06-06] MEDS ORDERED: SODIUM CHLORIDE 0.9% 1000ML 1,000 ML IV SCH (08:15)
[2018-06-06] MEDS ORDERED: IBUPROFEN 400 MG TAB PO ONE (08:15)
[2018-06-06 08:23] LABS: ALANINE AMINOTRANSFERASE 42 IU/L (0-55); ALBUMIN 2.7 g/dL (3.5-5.0); ALBUMIN/GLOBULIN RATIO 0.6 (0.8-2.0); ALKALINE PHOSPHATASE 129 IU/L (40-150); ANION GAP 13.5 mmol/L (8-16); BLOOD UREA NITROGEN 11 mg/dL (7-26); BUN/CREATININE RATIO 16 (6-25); CALCIUM 8.5 mg/dL (8.4-10.2); CARBON DIOXIDE 20 mmol/L (22-29); CHLORIDE 104 mmol/L (98-107); CREATINE KINASE 101 IU/L (29-168); CREATININE, SERUM 0.67 mg/dL (0.57-1.11); EST GLOMERULAR FILTRATION RATE > 60 ML/MIN (60-); GLUCOSE 105 mg/dL (74-118); POTASSIUM 4.5 mmol/L (3.5-5.1); SODIUM 133 mmol/L (136-145)
[2018-06-06 08:26] LABS: STREPTOCOCCUS GRP A ANTIGEN POSITIVE (NEGATIVE)
[2018-06-06 08:29] LABS: INFLUENZAE A&B ANTIGEN (RAPID) NEGATIVE (NEGATIVE)
[2018-06-06] MEDS ORDERED: ONDANSETRON HCL INJ 2 MG/ML VIAL IV STA (08:30)
[2018-06-06] MEDS ORDERED: MORPHINE SULFATE 2 MG/ML SYR IV STA (08:30)
[2018-06-06 08:32] LABS: CLARITY,URINE HAZY (CLEAR); COLOR,URINE AMBER (YELLOW)
[2018-06-06 08:33] LABS: KETONES,URINE 1+ (NEGATIVE); LEUKOCYTE ESTERASE ,URINE TRACE (NEGATIVE); NITRITE,URINE POSITIVE (NEGATIVE); PROTEIN,URINE DIPSTICK NEGATIVE (NEGATIVE)
[2018-06-06 08:34] LABS: BILIRUBIN,URINE 2+ (NEGATIVE); URINE UROBILINOGEN 8 mg/dL (0.2 - 1)
[2018-06-06 08:39] LABS: EPITHELIAL CELLS,URINE MANY /LPF
[2018-06-06 08:40] LABS: BACTERIA,URINE MODERATE /HPF; WBC,URINE (MAN) 0-5 /HPF (0-5)
--- NOTE | 2018-06-06 08:58 | Diagnostic Imaging Report ---
PROCEDURE: A single AP view of the chest. COMPARISON: Chest radiograph 02/19/18. INDICATIONS: ABDOMEN PAIN, FEVER FINDINGS: Lines/tubes: None. Lungs: Low lung volumes. Mild bilateral perihilar and interstitial opacities. Mild patchy opacity at the right lung base. Pleura: There is no pleural effusion or pneumothorax. Heart and mediastinum: Mild enlargement of the cardiomediastinal silhouette. Bones: No acute bony abnormality. IMPRESSION: Mild pulmonary interstitial edema. Patchy opacity at the right lung base, more likely atelectasis than pneumonia. Dictated by: BRANDON EASON M.D. on 06/06/2018 at 9:06 Electronically approved by: BRANDON EASON M.D. on 06/06/2018 at 9:06
[2018-06-06] MEDS ORDERED: CEFEPIME HCL 1 GM VIAL IV SCH (10:00)
[2018-06-06 10:10] LABS: ANISOCYTOSIS SLIGHT; EOSINOPHILS % (MANUAL) 2 % (0-7); LYMPHOCYTES % (MANUAL) 7 % (19-48); MONOCYTES % (MANUAL) 5 % (3.4-9.0); NEUTROPHILS % (MANUAL) 86 % (40-74); PLATELET ESTIMATE MARKEDLY DECREASED; PLATELET MORPHOLOGY COMMENT NORMAL; RBC MORPHOLOGY COMMENT NORMAL
[2018-06-06] MEDS: VANCOMYCIN 1GM/NS 250 ML 250 ML IV SCH ×2 (10:27→23:00)
[2018-06-06] MEDS ORDERED: MORPHINE SULFATE 2 MG/ML SYR IV PRN (10:30)
[2018-06-06] MEDS ORDERED: IBUPROFEN 600 MG TAB PO PRN (10:30)
[2018-06-06] MEDS ORDERED: IBUPROFEN 400 MG TAB PO PRN (10:45)
--- NOTE | 2018-06-06 11:06 | History and Physical ---
She is a 53-year-old female patient presented with the complaint of fever for 2 days duration. HISTORY OF PRESENT ILLNESS: Ms. Shalia Monzon is a 53-year-old female patient with a history of liver cirrhosis, diabetes mellitus, advanced liver cirrhosis with ascites, portal hypertension, presented with the complaint of 2 days history of fever. The patient also complained of back pain, nausea and burning with urination. The patient is deeply jaundiced. The patient goes to the [facility] for liver transplant team. PAST MEDICAL HISTORY: Liver cirrhosis, ascites, recurrent paracentesis for the ascites, thrombocytopenia, diabetes mellitus. PAST SURGICAL HISTORY: Cholecystectomy, hysterectomy. ALLERGIES: THE PATIENT IS ALLERGIC TO IODINE. MEDICATIONS: See from the list. The patient is on Lasix, Aldactone, , pantoprazole, lactulose, rifampin. SOCIAL HISTORY: Denies smoking. Denies using alcohol. FAMILY HISTORY: Diabetes mellitus. PHYSICAL EXAMINATION GENERAL: She is an middle-aged female patient lying in bed not in any acute distress. The patient is deeply jaundiced. Marked icterus. VITALS: Temperature 99, pulse rate 88, respiration rate 20, blood pressure 110/70. HEENT: Normocephalic and atraumatic. LUNGS: Bilateral basal rales present. HEART: S1 and S2 regular. Systolic murmur present. ABDOMEN: Ascites present. No hepatosplenomegaly present. Mild tenderness present. NEURO: No focal neurological deficit. ADMITTING IMPRESSION/DIAGNOSES 1. Febrile. 2. Patient with advanced liver cirrhosis and pancytopenia. 3. Thrombocytopenia. 4. Hyperbilirubinemia. 5. Patient has possible sepsis with immunocompromised patient secondary to liver disease. 6. Borderline diabetes mellitus. 7. Possible urinary tract infection. PLAN: The patient will be admitted with the above diagnoses. The patient will get GI consult with Dr. Hoffman, and ID consult with Dr. Marie. Will treat the patient with IV antibiotics. Treat the patient with vanco and cefepime. Will also rule out subacute SBP and endocarditis. The patient will get echocardiogram and paracentesis. Job#: [id number] [place]
[2018-06-06] MEDS: FUROSEMIDE 40 MG TAB PO SCH (11:33)
[2018-06-06] MEDS: PANTOPRAZOLE SOD 40 MG TABEC PO SCH (11:33)
[2018-06-06] MEDS: SODIUM CHLORIDE 0.9% 1000ML 1,000 ML IV SCH ×2 (11:33→23:00)
[2018-06-06] MEDS: LACTULOSE SYRUP 20 GM/30 ML UDC PO SCH ×2 (11:33→18:10)
[2018-06-06] MEDS: RIFAMPIN 300 MG CAP PO SCH (13:14)
[2018-06-06 14:15] VITALS: BP 111/53
[2018-06-06 14:23] VITALS: BP 111/53
--- OUTSIDE RECORDS SUMMARY | 2018-06-06 14:37 | XMS REPORT | Clinical Summary ---
Author Author [facility] Organization [facility] Address Unknown Phone Unavailable Care Team Providers Care Double Cut Sawyer Name Role Phone Asked, No Pcp PCP Unavailable Allergies Not on File Current Medications Not on file Active Problems Not on file Social History Tobacco Use Types Packs/Day Years Used Date Never Assessed Sex Assigned at Date Recorded Not on file Last Filed Vital Signs Not on file Plan of Treatment Health Maintenance Due Date Last Done Comments CERVICAL CANCER SCREENING 1988 BREAST CANCER SCREENING 2017 COLON CANCER SCREENING 2017 SHINGRIX VACCINE (#1) 2017 INFLUENZA VACCINE 03/22/2018 Results Not on fileafter 06/05/2017 Insurance Payer Benefit Subscriber ID Type Phone Address Plan / Group [employer] MNGD OPTUM TXP xxxxxxxxx Transplant CARE SANAZ 2007 [facility] UNITED[employer]AL xxxxxxxxx HMO/PPO THCARE CHOICE/CHO ICE + [facility] MEDICARE UNITED/CAR xxxxxxxxx HMO E IMPROVEMEN T LOURDES Home: [id number] [place] [id number]
--- OUTSIDE RECORDS SUMMARY | 2018-06-06 14:37 | XMS REPORT | Clinical Summary ---
Author Author [facility] Address Unknown Phone Unavailable Care Team Providers Care Sales Operations Lead Name Role Phone PCP Unavailable Allergies Active Allergy Reactions Severity Noted Date Comments Iodine And Iodide Swelling High 06/16/2016 To Iodine Contrast Containing Products Current Medications Prescription Sig. Disp. Refills Start End Date Status Date propranolol (INDERAL) 20 Take 20 mg by mouth daily Active MG tablet . rifAXIMin (XIFAXAN) 550 Take 1 tablet (550 mg 60 tablet 6 11/17/19 Active mg TabIndications: total) by mouth 2 (two) 17 Cirrhosis of liver with times daily. ascites, unspecified hepatic cirrhosis type (HCC), Awaiting organ transplant status, Hepatic encephalopathy (HCC) iron dextran complex Inject intravenously. Active (IRON DEXTRAN IV)Indications: Ascites of liver traZODone (DESYREL) 100 Take 100 mg by mouth Active MG tabletIndications: nightly. Awaiting organ transplant status, Cirrhosis of liver with ascites, unspecified hepatic cirrhosis type (HCC) lactulose (CHRONULAC) 10 Take 20 g by mouth every 2 04/18/20 Active gram/15 mL solution 6 (six) hours. 18 omeprazole (PRILOSEC) 40 Take 40 mg by mouth Active MG capsule daily. spironolactone Take 100 mg by mouth 0 05/12/20 Active (ALDACTONE) 100 MG tablet daily. 18 ursodiol (ACTIGALL) 300 Take 300 mg by mouth Active mg capsule daily. furosemide (LASIX) 40 MG Take 40 mg by mouth Active tablet daily. furosemide (LASIX) 40 MG 40 mg daily . 02/14/20 05/23/20 Discontin tabletIndications: in the 18 ued morning predniSONE (DELTASONE) 10 Take 10 mg by mouth 05/23/20 Discontin MG tablet daily. 18 ued benzonatate (TESSALON) Take 200 mg by mouth 3 05/23/20 Discontin 200 MG capsule (three) times daily as 18 ued needed for Cough. lactulose (CHRONULAC) 10 Take 20 g by mouth 3 05/23/20 Discontin gram/15 mL (15 mL) (three) times daily. 18 ued solution pantoprazole (PROTONIX) Take 40 mg by mouth. 05/23/20 Discontin 40 MG tablet 18 ued zinc sulfate (ZINCATE) Take 220 mg by mouth 05/23/20 Discontin 220 (50) mg capsule daily. 18 ued albuterol HFA (VENTOLIN Inhale 1 puff by mouth 05/23/20 Discontin HFA) 90 mcg/actuation via inhaler every 6 (six) 18 ued inhaler hours as needed for Wheezing. spironolactone Take 50 mg by mouth 09/20/19 Discontin (ALDACTONE) 50 MG tablet daily. 18 ued spironolactone Take 2 tablets (100 mg 30 tablet 2 09/20/19 03/21/20 Discontin (ALDACTONE) 50 MG total) by mouth daily. 18 18 ued tabletIndications: Ascites of liver melatonin 3 mg Tab Take 3 mg by mouth 05/23/20 Discontin tabletIndications: nightly. 18 ued Ascites of liver spironolactone Take 2 tablets (100 mg 30 tablet 6 03/21/20 05/23/20 Discontin (ALDACTONE) 50 MG total) by mouth daily. 18 18 ued tabletIndications: Ascites of liver furosemide (LASIX) 20 MG Take 20 mg by mouth 05/23/20 Discontin tabletIndications: in the daily. 18 ued afternoon Active Problems Problem Noted Date Awaiting organ transplant status 04/27/2017 Anemia 10/09/2016 Thrombocytopenia (HCC) 10/09/2016 Leukopenia 10/09/2016 Hypoalbuminemia 10/09/2016 Chronic diarrhea 10/09/2016 Obesity (BMI 30-39.9) 10/09/2016 GERD (gastroesophageal reflux disease) 10/09/2016 Cirrhosis of liver with ascites, unspecified hepatic cirrhosis type (HCC) 10/08/2016 Post procedure discomfort 10/08/2016 C. difficile diarrhea 09/15/2016 Angina at rest (HCC) 04/27/2016 Pre-transplant evaluation for chronic liver disease 03/25/2016 Last Assessment & Plan: She will be an acceptable candidate for liver transplant pending further imaging and testing. We will also need clearance from her [employer] oncologist that she does not have any sort of cancer or metastatic disease. Portal hypertension 02/20/2016 Last Assessment & Plan: She has portal hypertension manifested by ascites and hypersplenism. Ascites of liver 02/20/2016 Last Assessment & Plan: She required her first paracentesis in February 2016. Screening for malignant neoplasm 02/20/2016 Ovarian tumor 02/20/2016 Last Assessment & Plan: She was diagnosed with a left ovarian mass when she presented to a local ER for abdominal pain. She met with a local ignition specialist who diagnosed her with an "ovarian tumor" and has referred her to a gynecology oncologist. I have no seen documentation from her [employer] oncologist but she states that the "ovarian tumor" is simply an ovarian cyst. Screening for endocrine/metabolic/immunity disorders 02/20/2016 Last Assessment & Plan: All patients with chronic liver disease, regardless of etiology, should be immunized to prevent hepatitis A and hepatitis B if they are not already immune. We will test for immunity to both viruses - vaccine recommendations will follow. Hyperbilirubinemia 02/20/2016 Last Assessment & Plan: Hyperbilirubinemia is likely related to her liver disease but we do not have a fractionated bilirubin to confirm (ordered today). Previous MRCP was unremarkable. 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 Cirrhosis of liver with ascites 02/19/2016 Last Assessment & Plan: She was diagnosed with liver cirrhosis in 2004. It is secondary to a presumed diagnosis of fatty liver disease. Her meld score is 19. Encounters Date Type Specialty Care Team Description 05/30/2018 Telephone Transplant Hepatology Monika Vanegas Appointment (Rescheduled 09/05 clinic & bmds appt & rescheduled to 07/25 w/pt. Itinerary mailed.) 05/25/2018 Telephone Transplant Hepatology Monika Vanegas Appointment (Scheduled 06/08 mri & bmds & 09/05 clinic appt w/pts daughter. ) 05/23/2018 Emergency Emergency Medicine Ronen Bunch, Chest pain, unspecified MD type (Primary Dx);Epigastric pain;Cirrhosis of liver with ascites, unspecified hepatic cirrhosis type (HCC);Thrombocytopenia (HCC);Elevated LFTs 05/23/2018 Follow-Up Transplant Hepatology Tim Ramos MD Awaiting organ transplant status (Primary Dx);Cirrhosis of liver with ascites, unspecified hepatic cirrhosis type (HCC) 05/23/2018 Orders Only Transplant HepatMarleny Bradley RN Awaiting organ transplant status (Primary Dx);Cirrhosis of liver without ascites, unspecified hepatic cirrhosis type (HCC);Bone disorder 05/23/2018 Outside Orders Aren Martel Edilma 05/22/2018 Telephone Transplant Hepatology Monika Vanegas Appointment (LVM. Calling to confirm 05/23 appts.) 04/19/2018 Orders Only Transplant Hepatology Monika Vanegas Awaiting organ transplant status 04/19/2018 Telephone Transplant HepatMonika Mg Appointment (LVM. Calling to schedule labs for meld update.) 04/11/2018 Orders Only Transplant HepatMonika Mg Awaiting organ transplant status 04/10/2018 Telephone Transplant HepatMonika Mg Appointment (Called to schedule meld labs spoke w/pts daughter [facility] 04/04/2018 [facility] Radiology Tim Ramos MD No Show Encounter 03/29/2018 Telephone Transplant HepatMarleny Bradley RN Follow-up 03/29/2018 Telephone Transplant HepatMonika Mg Appointment (Scheduled 05/23 clinic & bmds w/pt. Itinerary mailed.) 03/28/2018 Orders Only Transplant Hepatology Marleny Pino RN Osteopenia, unspecified location (Primary Dx) 03/28/2018 Telephone Transplant HepatMarleny Bradley RN Follow-up 03/23/2018 Telephone Transplant HepatMarleny Bradley RN Follow-up 03/23/2018 Documentation Transplant HepatMonika Mg 03/21/2018 Follow-Up Transplant Hepatology Christiano Solis MD Ascites of liver Tim Ramos MD 03/20/2018 Telephone Transplant HepatMonika Mg Appointment (Confirmed 03/21 appt.) 03/08/2018 Hospital Radiology Christiano Solis MD Liver lesion Encounter 03/08/2018 Orders Only Lab Christiano Solis MD Awaiting organ transplant status 02/27/2018 Orders Only Transplant Hepatology Marleny Pino RN Awaiting organ transplant status 02/17/2018 Orders Only Transplant HepatMarlney Bradley RN Liver lesion (Primary Dx) 02/17/2018 Telephone Transplant HepatMonika Mg Appointment (Scheduled 03/08 mri appt & 03/21 clinic & [facility] appt w/pt. Itinerary mailed. ) 02/17/2018 Orders Only Transplant HepatMarleny Bradley RN Awaiting organ transplant status (Primary Dx) 12/13/2017 Follow-Up Transplant Hepatology Aissatou Mcguire MD Ascites of liver;Awaiting Tim Ramos MD organ transplant status;Portal hypertension (HCC);Thrombocytopenia (HCC) 12/12/2017 Telephone Transplant HepatMonika Mg Appointment (Pt called and said she is currently admitted at [facility] but may be getting released later today if she is released she will be her for her 12/13 clinic appt if not she will call to rescheduled.) 11/21/2017 Orders Only Transplant HepatMarleny Bradley RN Awaiting organ transplant status (Primary Dx) 11/21/2017 Telephone Transplant HepatMonika Mg Appointment (Calling to find out where pt is getting labs done today for meld update.) 11/18/2017 Telephone Transplant HepatMonika Mg Appointment (Called to schedule labs for meld update [facility]. Pt said classification analyst wanted her to go to ER 11/17 because her platelets were low pt had not gone i explained she should follow 's orders. Rescheduled january appt to 12/16. mld itinerary.) 11/15/2017 Telephone Transplant HepatMarleny Bradley RN Follow-up 11/14/2017 Telephone Transplant HepatMonika Mg Appointment (LVM. Calling to schedule labs for meld update.) 10/28/2017 Documentation Transplant Darlene Hernandez MA 10/28/2017 Abstract Transplant Darlene Hernandez MA 10/07/2017 Hospital Radiology Aissatou Mcguire MD Awaiting organ transplant Encounter status 10/07/2017 Orders Only Lab Aissatou Mcguire MD Awaiting organ transplant status 09/26/2017 Orders Only Transplant Hepatology Marleny Pino RN Awaiting organ transplant status (Primary Dx) 09/26/2017 Telephone Transplant Hepatology Monika Vanegas Appointment (Scheduled 10/07 lab, mri & [place] appt @ 11:30 & 06 clinic appt w/pts daughter. Itinerary mailed.) 09/26/2017 Telephone Transplant Hepatology Monika Vanegas Appointment (LVM. Calling to schedule next available mri, labs, echo & [place] appt.) 09/26/2017 Telephone Transplant Hepatology Monika Vanegas Appointment (LVM. Calling to schedule next available mri, labs, echo & [place] appt.) 09/25/2017 Orders Only Transplant Hepatology Marleny Pino RN Awaiting organ transplant status (Primary Dx) 09/21/2017 Telephone Transplant Hepatology Marleny Pino RN Labs Only 09/20/2017 Follow-Up Transplant Hepatology Christiano Solis MD Cirrhosis of liver with Aissatou Mcguire MD ascites, unspecified hepatic cirrhosis type (HCC) (Primary Dx);Ovarian tumor;Screening for endocrine/metabolic/immun ity disorders;Teratoma of right ovary;Thrombocytopenia (HCC);Obesity (BMI 30-39.9);Awaiting organ transplant status;Ascites of liver 09/20/2017 Telephone Transplant Hepatology Monika Vanegas Appointment (Called and spoke w/pts daughter to find out if pt was going to Dr Berg's appt (Dr Berg is looking for pt) Daughter said her mom got out of her appt late and didn't want to go since she was late.) 09/19/2017 Telephone Transplant Hepatology Monika Vanegas Appointment (LVM. Calling to confirm 09/20 appt.) 09/08/2017 Telephone Transplant Hepatology Monika Vanegas Appointment (LVM. Calling to schedule mri appt due now.) 08/23/2017 Orders Only Transplant Hepatology Tristian Abreu RN Cirrhosis of liver with ascites, unspecified hepatic cirrhosis type (HCC) (Primary Dx);Hyperbilirubinemia 08/19/2017 Telephone Transplant Hepatology Monika Vanegas Appointment (Called to schedule labs for meld update. [facility] 08/08/2017 Telephone Transplant Hepatology Monika Vanegas Appointment (Called to see if pt can get the results to mri she had done at [facility] or schedule her mri due now. Spoke w/pts daughter she said she would call [facility] to have them fax mri results.) 07/27/2017 Telephone Transplant Hepatology Marleny Pino RN Follow-up 07/08/2017 Telephone Transplant Hepatology Monika Vanegas Appointment (Called to ask pt to bring her MRI report done at [facility] while she was admitted.) 07/06/2017 Telephone Transplant Hepatology Monika Vanegas Appointment (Scheduled 09/[address] esthela ross w/pt. Pt stated she had mri done recently while admitted at [facility]. Itinerary mailed.) after 06/05/2017 Social History Tobacco Use Types Packs/Day Years Used Date Never Smoker Alcohol Use Drinks/Week oz/Week Comments No Sex Assigned at Date Recorded Not on file Last Filed Vital Signs Vital Sign Reading Time Taken Blood Pressure 132/62 05/23/2018 11:59 AM CDT Pulse 75 05/23/2018 11:59 AM CDT Temperature 36.6 C (97.9 F) 05/23/2018 10:44 AM CDT Respiratory Rate 18 05/23/2018 11:59 AM CDT Oxygen Saturation 100% 05/23/2018 11:59 AM CDT Inhaled Oxygen - - Concentration Weight 86.4 kg (190 lb 6.4 oz) 05/23/2018 8:53 AM CDT Height 162.6 cm (5' 4") 05/23/2018 8:53 AM CDT Body Mass Index 32.68 05/23/2018 8:53 AM CDT Plan of Treatment Date Type Specialty Care Team Description 07/25/2018 Follow-Up Transplant Hepatology 07/25/2018 Appointment Tim Ramos MD [address] [address] [phone] 09/05/2018 Appointment Radiology Tim Ramos MD [address] [address] Health Maintenance Due Date Last Done Comments INFLUENZA VACCINE 05/22/2018 Implants Implanted Type Area Hand Drawer In Device Expiration Model / Identifier Date Serial / Lot Device Clsr Angio-Seal Vip 6fr Cardiovasc [employer]ERELLE 02/18/2017 [id number] / [id number] - [id number] junior MED:CARDIAC / Implanted: Qty: 1 on 04/27/2016 by [id number] Greta Berg MD Results * ED ECG Interpretation (05/23/2018 1:18 PM) Narrative Ronen Bunch MD 05/23/20181:18 PM ECG/EKG Interpretation Date/Time: 05/23/2018 10:42 AM Performed by: RONEN BUNCH Authorized by: RONEN BUNCH The ECG was interpreted by ED physician. This ECG was not compared with previous ECG(s).The ECG is interpreted as sinus rhythm. Rate is normal rate. Heart rate is 74 BPM. Conduction: conduction normal. ST segments normal. Clinical Impression: non-specific ECGECG reviewed and does not meet STEMI criteria. Patient tolerance: Patient tolerated the procedure well with no immediate complications * XR chest 1 view portable / bedside (05/23/2018 12:06 PM) Specimen Performing Laboratory GE RIS Narrative FINAL REPORT Chest one view INDICATION: Shortness of breath COMPARISON: 11/05/2016 IMPRESSION: Previously seen right upper lobe nodularity is not apparent on this study. There are coarsened interstitial markings. No focal consolidation, edema, pleural effusion, or pneumothorax is seen. The cardiomediastinal silhouette is unremarkable. The bones appear intact. Signed: Eric Velazquez MD Report Verified Date/Time:05/23/2018 12:16:57 Reading Location: [facility] Radiology Reading Room Procedure Note Interface, External Ris In - 05/23/2018 12:42 PM CDT FINAL REPORT Chest one view INDICATION: Shortness of breath COMPARISON: 11/05/2016 IMPRESSION: Previously seen right upper lobe nodularity is not apparent on this study. There are coarsened interstitial markings. No focal consolidation, edema, pleural effusion, or pneumothorax is seen. The cardiomediastinal silhouette is unremarkable. The bones appear intact. Signed: Eric Velazquez MD Report Verified Date/Time: 05/23/2018 12:16:57 Reading Location: [facility] Reading Room * CBC with platelet count + automated diff (05/23/2018 11:17 AM) Only the most recent of 4 results within the time period is included. Component Value Ref Range WBC 4.6 3.5 - 10.5 K/L RBC 2.88 (L) 3.93 - 5.22 M/L Hemoglobin 10.4 (L) 11.2 - 15.7 GM/DL Hematocrit 31.5 (L) 34.1 - 44.9 % MCV 109.4 (H) 79.4 - 94.8 fL MCH 36.1 (H) 25.6 - 32.2 pg MCHC 33.0 32.2 - 35.5 GM/DL RDW 16.5 (H) 11.7 - 14.4 % Platelets 17 (L) 150 - 450 K/CU MM MPV 13.9 (H) 9.4 - 12.3 fL nRBC 0 0 - 0 /100 WBC % Neutros 77 % % Lymphs 11 % % Monos 11 % % Eos 1 % % Baso 0 % # Neutros 3.51 1.56 - 6.13 K/L # Lymphs 0.48 (L) 1.18 - 3.74 K/L # Monos 0.48 (H) 0.24 - 0.36 K/L # Eos 0.06 0.04 - 0.36 K/L # Baso 0.02 0.01 - 0.08 K/L Immature 1 0 - 1 % Granulocytes-Relative Specimen Performing Laboratory Blood - Arm, [address] [address] * Troponin I (05/23/2018 11:17 AM) Component Value Ref Range Troponin I <0.01 0.00 - 0.03 ng/mL Specimen Performing Laboratory Blood - Arm, [address] [address] Narrative Troponin I (TnI) levels must be interpreted in the context of the presenting symptoms and the clinical findings. Elevated TnI levels indicate myocardial damage, but are not specific for ischemic heart disease. Elevated TnI levels are seen in patients with other cardiac conditions (including myocarditis and congestive heart failure), and slight TnI elevations occur in patients with other conditions, including sepsis, renal failure, acidosis, acute neurological disease, and persistent tachyarrhythmia. * CBC with platelet count + automated diff (05/23/2018 11:17 AM) Only the most recent of 7 results within the time period is included. Specimen Performing Laboratory Blood Narrative The following orders were created for panel order CBC with platelet count + automated diff. Procedure Abnormality Status --------- ------ CBC with platelet count ...[[id number]]AbnormalFinal result Please view results for these tests on the individual orders. * Lipase (05/23/2018 11:17 AM) Component Value Ref Range Lipase 40 8 - 78 U/L Specimen Performing Laboratory Blood - Arm, [address] [address] Narrative Specimen moderately icteric * Creatine Kinase (CK), Total and MB (05/23/2018 11:17 AM) Component Value Ref Range Total CK 115 29 - 200 U/L CK-MB 1.5 0.0 - 6.6 ng/mL MB Relative Index 1.3 % Specimen Performing Laboratory Blood - Arm, [address] [address] Narrative CK-MB Reference Range: <6.7Normal 6.7-10.0Borderline >10.0 Abnormal * Hepatic function panel (05/23/2018 11:17 AM) Component Value Ref Range Protein, Total 7.6 6.0 - 8.3 gm/dL Albumin 2.8 (L) 3.5 - 5.0 g/dL Total Bilirubin 7.0 (H) 0.2 - 1.2 mg/dL Bilirubin, Direct 2.0 (H) 0.1 - 0.5 mg/dL Alkaline Phosphatase 172 (H) 40 - 150 U/L AST 56 (H) 5 - 34 U/L ALT 28 6 - 55 U/L Specimen Performing Laboratory Blood - Arm, Right [facility] [address] Narrative Specimen moderately icteric * Basic Metabolic Panel (05/23/2018 11:17 AM) Component Value Ref Range Sodium 136 136 - 145 meq/L Potassium 4.1 3.5 - 5.1 meq/L Chloride 106 98 - 107 meq/L CO2 24 22 - 29 meq/L BUN 13 7 - 21 mg/dL Creatinine 0.65 0.57 - 1.25 mg/dL Glucose 109 (H) 70 - 105 mg/dL Calcium 8.4 8.4 - 10.2 mg/dL EGFR 96Comment: ESTIMATED GFR IS NOT ACCURATE mL/min/1.73 sq m CREATININE CLEARANCE IN PREDICTING GLOMERULAR FILTRATION RATE. ESTIMATED GFR IS NOT APPLICABLE FOR DIALYSIS PATIENTS. Specimen Performing Laboratory Blood - Arm, Right [address] [address] Narrative Specimen moderately icteric * ECG 12 lead (05/23/2018 10:42 AM) Specimen Performing Laboratory GE MUSE Narrative Ventricular Rate 74 BPM Atrial Rate 74 BPM P-R Interval 154 ms QRS Duration 92 ms Q-T Interval 424 ms QTC Calculation(Bazett) 470 ms P [place] 45 degrees R [place] -20 degrees T [place] 68 degrees Normal sinus rhythm Possible Left atrial enlargement Left ventricular hypertrophy Abnormal ECG Confirmed by MD Zabala Mahboob ([id number]) on 05/23/2018 10:07:49 PM Procedure Note Interface, External Ris In - 05/23/2018 10:07 PM CDT Ventricular Rate 74 BPM Atrial Rate 74 BPM P-R Interval 154 ms QRS Duration 92 ms Q-T Interval 424 ms QTC Calculation(Bazett) 470 ms P [place] 45 degrees R [place] -20 degrees T [place] 68 degrees Normal sinus rhythm Possible Left atrial enlargement Left ventricular hypertrophy Abnormal ECG Confirmed by MD Zabala Mahboob ([id number]) on 05/23/2018 10:07:49 PM * Prothrombin time/INR (04/20/2018 9:26 AM) Only the most recent of 6 results within the time period is included. Component Value Ref Range INR 1.4 (H) Comment: Reference Range 0.9-1.1 Moderate-intensity Warfarin Therapy 2.0-3.0 Higher-intensity Warfarin Therapy 3.0-4.0 PT 14.2 (H) 9.0 - 11.5 sec Comment: For more information on this test, go to: http://education.[employer]/faq/ZWJ962 Specimen Performing Laboratory Blood [facility] [address] [facility] [place], [place] [address] * Bilirubin, direct (04/20/2018 9:26 AM) Only the most recent of 4 results within the time period is included. Component Value Ref Range Bilirubin, Total 7.0 (H) 0.2 - 1.2 mg/dL Bilirubin, Direct 2.0 (H) < OR=0.2 mg/dL Bilirubin, Indirect 5.0 (H) 0.2 - 1.2 mg/dL (calc) Specimen Performing Laboratory Blood [facility] [address] [facility] [place], [place] [address] * Comprehensive metabolic panel (04/20/2018 9:26 AM) Only the most recent of 5 results within the time period is included. Component Value Ref Range Glucose 90 65 - 99 mg/dL Comment: Fasting reference interval BUN 11 7 - 25 mg/dL Creatinine 0.42 (L) 0.50 - 1.05 mg/dL Comment: For patients >49 years of age, the reference limit for Creatinine is approximately 13% higher for people identified as -[place]. eGFR If NonAfricn Am 120 > OR=60 mL/min/1.73m2 eGFR If Africn Am 139 > OR=60 mL/min/1.73m2 BUN/Creatinine Ratio 26 (H) 6 - 22 (calc) Sodium 140 135 - 146 mmol/L Potassium, Serum 4.7 3.5 - 5.3 mmol/L Chloride 108 98 - 110 mmol/L Carbon Dioxide, Total 27 20 - 32 mmol/L Calcium, Serum 8.2 (L) 8.6 - 10.4 mg/dL Protein, Total, Serum 6.2 6.1 - 8.1 g/dL Albumin 2.5 (L) 3.6 - 5.1 g/dL GLOBULIN ([facility]) 3.7 1.9 - 3.7 g/dL (calc) Albumin Globulin Ratio 0.7 (L) 1.0 - 2.5 (calc) Bilirubin, Total 7.0 (H) 0.2 - 1.2 mg/dL Alkaline Phosphatase, S 143 (H) 33 - 130 U/L AST (SGOT) 57 (H) 10 - 35 U/L ALT (SGPT) 32 (H) 6 - 29 U/L Specimen Performing Laboratory Blood [facility] [address] [facility] [place] [address] * MRI abdomen with and without contrast (03/08/2018 11:38 AM) Only the most recent of 2 results within the time period is included. Specimen Performing Laboratory GE RIS Narrative FINAL REPORT TECHNIQUE: MRI of the abdomen WITHOUT and WITH intravenous contrast. INDICATION: 52-year-old woman with cirrhosis and liver lesion. COMPARISON: Abdomen MRIs 10/07/2017, 01/14/2017, and 04/02/2016. FINDINGS: LOWER THORAX: Trace right pleural effusion. LIVER: Cirrhotic morphology of the liver with scattered siderotic nodules. No new suspicious hepatic lesions. Unchanged 1.2 cm and 1.3 cm arterially enhancing foci in segment and segment VIII, respectively, without washout or capsule (axial postcontrast arterial series image 30). BILIARY: Prior cholecystectomy. No biliary ductal dilatation or filling defect. SPLEEN: The spleen is enlarged, measuring 17.7 cm in the craniocaudal dimension. Gamna-Nina bodies. PANCREAS: No focal masses or ductal dilatation. ADRENALS: No adrenal nodules. KIDNEYS/URETERS: No hydronephrosis or solid mass lesions. PERITONEUM/RETROPERITONEUM: Small-moderate volume ascites. LYMPH NODES: No lymphadenopathy. VESSELS: Portal system and hepatic veins are patent. Main portal vein measures approximate 1.4 cm in diameter. Esophageal varices and perisplenic collateral vessels. Abdominal aorta is within normal limits in caliber. GI TRACT: No distention or wall thickening. BONES AND SOFT TISSUES: Unremarkable. IMPRESSION: Cirrhosis with portal hypertension and small-moderate volume ascites. No suspicious liver lesions. Unchanged indeterminate arterially enhancing foci in the right hepatic lobe. Signed: Chalo Patrick MD Report Verified Date/Time:03/08/2018 15:00:53 Reading Location: [address] Radiology Reading Room Procedure Note Interface, External Ris In - 03/08/2018 3:03 PM CDT FINAL REPORT TECHNIQUE: MRI of the abdomen WITHOUT and WITH intravenous contrast. INDICATION: 52-year-old woman with cirrhosis and liver lesion. COMPARISON: Abdomen MRIs 10/07/2017, 01/14/2017, and 04/02/2016. FINDINGS: LOWER THORAX: Trace right pleural effusion. LIVER: Cirrhotic morphology of the liver with scattered siderotic nodules. No new suspicious hepatic lesions. Unchanged 1.2 cm and 1.3 cm arterially enhancing foci in segment and segment VIII, respectively, without washout or capsule (axial postcontrast arterial series image 30). BILIARY: Prior cholecystectomy. No biliary ductal dilatation or filling defect. SPLEEN: The spleen is enlarged, measuring 17.7 cm in the craniocaudal dimension. Gamna-Clive bodies. PANCREAS: No focal masses or ductal dilatation. ADRENALS: No adrenal nodules. KIDNEYS/URETERS: No hydronephrosis or solid mass lesions. PERITONEUM/RETROPERITONEUM: Small-moderate volume ascites. LYMPH NODES: No lymphadenopathy. VESSELS: Portal system and hepatic veins are patent. Main portal vein measures approximate 1.4 cm in diameter. Esophageal varices and perisplenic collateral vessels. Abdominal aorta is within normal limits in caliber. GI TRACT: No distention or wall thickening. BONES AND SOFT TISSUES: Unremarkable. IMPRESSION: Cirrhosis with portal hypertension and small-moderate volume ascites. No suspicious liver lesions. Unchanged indeterminate arterially enhancing foci in the right hepatic lobe. Signed: Chalo Patrick MD Report Verified Date/Time: 03/08/2018 15:00:53 Reading Location: [address] Radiology Reading Room * POC-Creatinine (03/08/2018 11:09 AM) Component Value Ref Range POC-Creatinine 0.3 (L)Comment: TESTED AT [address] 0.6 - 1.3 mg/dL [place] [address] POC-EGFR 235 mL/min/1.73M2 Specimen Performing Laboratory Blood [address] [address] * Alpha fetoprotein (AFP), tumor marker (03/08/2018 9:46 AM) Only the most recent of 3 results within the time period is included. Component Value Ref Range Alpha-Fetoprotein <2.0 <10.0 ng/mL Specimen [place] [address] after 06/05/2017
--- OUTSIDE RECORDS SUMMARY | 2018-06-06 14:49 | XMS REPORT | Clinical Summary ---
Author Author [facility] [facility] Address Unknown Phone Unavailable Care Team Providers Care Nurse Aide Name Role Phone Asked, No Pcp PCP [...] OPTUM TXP xxxxxxxxx Transplant CARE SANAZ 2007 [facility] UNITEDHEAL xxxxxxxxx HMO/PPO THCARE CHOICE/CHO ICE + [facility] MEDICARE UNITED/CAR xxxxxxxxx HMO E IMPROVEMEN T LOURDES Home: [id number] [place] [id number]
--- OUTSIDE RECORDS SUMMARY | 2018-06-06 14:49 | XMS REPORT | Clinical Summary ---
Author Author [facility] Address Unknown Phone Unavailable Care Team Providers Care Entry Level Name Role Phone PCP Unavailable Allergies Active [...] We will also need clearance from her MINE SAFETY MANAGER oncologist that she does not have any [...] abdominal pain. She met with a local pulvi mixer operator who diagnosed her with an "ovarian tumor" and has referred her to a gynecology oncologist. I have no seen documentation from her MINE SAFETY MANAGER oncologist but she states that the "ovarian [...] [facility] 04/04/2018 [facility] Radiology Tim Ramos MD No Show [...] organ transplant status 02/17/2018 Orders Only Transplant HepatMarleny Bradley RN Liver lesion (Primary Dx) 02/17/2018 Telephone Transplant HepatMonika Mg Appointment (Scheduled 03/08 mri appt & 03/21 clinic & [facility] appt w/pt. Itinerary mailed. ) 02/17/2018 Orders Only Transplant HepatMraleny Bradley RN Awaiting organ transplant status (Primary Dx) 12/13/2017 Follow-Up Transplant Hepatology Aissatou Mcguire MD Ascites of liver;Awaiting Tim Ramos MD organ transplant status;Portal hypertension (HCC);Thrombocytopenia (HCC) 12/12/2017 Telephone Transplant HepatMonika Mg Appointment (Pt called and said she is currently admitted at [facility] but may be getting released later [...] [facility]. Pt said business line manager wanted her to go to ER 11/17 [...] w/pts daughter she said she would call [facility] to have them fax mri results.) 07/27/2017 Telephone Transplant Hepatology Marleny Pino RN Follow-up 07/08/2017 Telephone Transplant Hepatology Monika Vanegas Appointment (Called to ask pt to bring her MRI report done at [facility] while she was admitted.) 07/06/2017 Telephone Transplant Hepatology Monika Vanegas Appointment (Scheduled 09/[address] esthela ross w/pt. Pt stated she had mri done recently while admitted at [facility]. Itinerary mailed.) after 06/05/2017 Social History Tobacco [...] Hepatology 07/25/2018 Appointment Tim Ramos MD [address] [address] [phone] 09/05/2018 Appointment Radiology Tim Ramos MD [address] [address] Health Maintenance Due Date Last Done Comments INFLUENZA VACCINE 05/22/2018 Implants Implanted Type Area Semiconductor Assembler Device Expiration Model / Identifier Date Serial / Lot Device Clsr Angio-Seal Vip 6fr Cardiovasc [facility]ER[facility] 02/18/2017 [id number] / [id number] - [id number] junior MED:CARDIAC / Implanted: Qty: 1 on 04/27/2016 by SURG [id number] Greta Berg MD Results * ED ECG [...] MD Report Verified Date/Time:05/23/2018 12:16:57 Reading Location: [facility] Radiology Reading Room Procedure Note Interface, External [...] Granulocytes-Relative Specimen Performing Laboratory Blood - Arm, [address] [address] * Troponin I (05/23/2018 11:17 AM) Component Value Ref Range Troponin I <0.01 0.00 - 0.03 ng/mL Specimen Performing Laboratory Blood - Arm, [address] [address] Narrative Troponin I (TnI) levels must be [...] Status --------- ------ CBC with platelet count ...[[id number]]AbnormalFinal result Please view results for these tests on the individual orders. * Lipase (05/23/2018 11:17 AM) Component Value Ref Range Lipase 40 8 - 78 U/L Specimen Performing Laboratory Blood - Arm, [address] [address] Narrative Specimen moderately icteric * Creatine Kinase (CK), Total and MB (05/23/2018 11:17 AM) Component Value Ref Range Total CK 115 29 - 200 U/L CK-MB 1.5 0.0 - 6.6 ng/mL MB Relative Index 1.3 % Specimen Performing Laboratory Blood - Arm, [address] [address] Narrative CK-MB Reference Range: <6.7Normal 6.7-10.0Borderline >10.0 [...] Laboratory Blood - Arm, Right [facility] [address] Narrative Specimen moderately icteric * Basic Metabolic [...] Specimen Performing Laboratory Blood - Arm, Right [address] [address] Narrative Specimen moderately icteric * ECG 12 lead (05/23/2018 10:42 AM) Specimen Performing Laboratory GE MUSE Narrative Ventricular Rate 74 BPM Atrial Rate 74 BPM P-R Interval 154 ms QRS Duration 92 ms Q-T Interval 424 ms QTC Calculation(Bazett) 470 ms P [place] 45 degrees R [place] -20 degrees T [place] 68 degrees Normal sinus rhythm Possible Left atrial enlargement Left ventricular hypertrophy Abnormal ECG Confirmed by MD Zabala Mahboob ([id number]) on 05/23/2018 10:07:49 PM Procedure Note Interface, External Ris In - 05/23/2018 10:07 PM CDT Ventricular Rate 74 BPM Atrial Rate 74 BPM P-R Interval 154 ms QRS Duration 92 ms Q-T Interval 424 ms QTC Calculation(Bazett) 470 ms P [place] 45 degrees R [place] -20 degrees T [place] 68 degrees Normal sinus rhythm Possible Left [...] more information on this test, go to: http://education.Next Jump/faq/DJT521 Specimen Performing Laboratory Blood [facility] [address] [facility] [place], [place] [address] * Bilirubin, direct (04/20/2018 9:26 AM) Only the most recent of 4 results within the time period is included. Component Value Ref Range Bilirubin, Total 7.0 (H) 0.2 - 1.2 mg/dL Bilirubin, Direct 2.0 (H) < OR=0.2 mg/dL Bilirubin, Indirect 5.0 (H) 0.2 - 1.2 mg/dL (calc) Specimen Performing Laboratory Blood [facility] [address] [facility] [place], [place] [address] * Comprehensive metabolic panel (04/20/2018 9:26 AM) [...] approximately 13% higher for people identified as -[place]. eGFR If NonAfricn Am 120 > OR=60 [...] U/L Specimen Performing Laboratory Blood [facility] [address] [facility] [place] [address] * MRI abdomen with and without contrast [...] MD Report Verified Date/Time:03/08/2018 15:00:53 Reading Location: [address] Radiology Reading Room Procedure Note Interface, [...] measuring 17.7 cm in the craniocaudal dimension. Gamna-Siasconset bodies. PANCREAS: No focal masses or ductal [...] Report Verified Date/Time: 03/08/2018 15:00:53 Reading Location: [address] Radiology Reading Room * POC-Creatinine (03/08/2018 11:09 AM) Component Value Ref Range POC-Creatinine 0.3 (L)Comment: TESTED AT [address] 0.6 - 1.3 mg/dL [place] [address] POC-EGFR 235 mL/min/1.73M2 Specimen Performing Laboratory Blood [address] [address] * Alpha fetoprotein (AFP), tumor marker (03/08/2018 9:46 AM) Only the most recent of 3 results within the time period is included. Component Value Ref Range Alpha-Fetoprotein <2.0 <10.0 ng/mL Specimen [place] [address] after 06/05/2017
[2018-06-06] MEDS ORDERED: SODIUM CHLORIDE 0.9% 250ML 250 ML ONE ×2 (15:18→22:02)
[2018-06-06 15:59] VITALS: BP 102/51
--- NOTE | 2018-06-06 17:22 | Diagnostic Imaging Report ---
Procedure: Ultrasound-guided diagnostic paracentesis mercerizer machine operator: Yvan Reilly MD Pre-operative diagnosis: Small volume ascites, concern for SBP Post-operative diagnosis: Small volume ascites, concern for SBP Conscious Sedation: The patient's heart rate and pulse oximetry were continuously monitored by the IR nurse. Additional Medications: Lidocaine 1% for local anesthesia Estimated blood loss: Minimal Specimens: 10 cc of serous ascites Implants: None TECHNIQUE/FINDINGS: Informed consent was obtained from the patient and documented in the medical record. Given the patient's thrombocytopenia, she was transfused one six pack of platelets immediately prior to the procedure. The patient was placed in the supine position. Initial ultrasound demonstrated small volume lower abdominal ascites. The right lower abdomen was prepped and draped in standard sterile fashion. 1% lidocaine was infiltrated into the skin and subcutaneous tissues for local anesthesia. Then under continuous sonographic guidance, a 20 gauge spine needle was advanced into the peritoneal space. A total of 10 cc of serous fluid was aspirated. The needle was removed. Sterile dressing was applied. Sample was sent to the lab. The patient tolerated the procedure well. IMPRESSION: Ultrasound-guided diagnostic paracentesis with removal of 10 cc of serous fluid. Signed by: Dr. Yvan Reilly MD on 06/06/2018 5:18 PM
[2018-06-06 20:00] VITALS: BP_SYST 116; BP_SYST 133; BP_DIAS 58; BP_DIAS 61
--- NOTE | 2018-06-06 20:02 | Consultation ---
DATE OF CONSULTATION: June 06, 2018 This is a 53-year-old woman who has history of cirrhosis, diabetes, history of portal hypertension. She presented to the hospital apparently because of some abdominal pain in the epigastric area along with some nausea and also fever. The patient denies any vomiting. The patient also becoming excessively jaundiced. Her workup revealed that her WBC was 7.8 and hemoglobin of 10.4, hematocrit 20. Her liver enzymes are bilirubin of 15.4. She is currently being evaluated by liver transplant at [facility]. She had a paracentesis earlier today, diagnostic paracentesis with removal of 10 mL of fluid. Her other medical problems reveal a history of cirrhosis, as mentioned before, history of thrombocytopenia, history of diabetes, status post cholecystectomy and hysterectomy. ALLERGIES: IODINE. MEDICATIONS: Lasix, Aldactone, pantoprazole, lactulose and rifaximin. SOCIAL HISTORY: No alcohol use. FAMILY HISTORY: Noncontributory. REVIEW OF SYSTEMS: Denies any chest pain. Denies any shortness of breath. Denies any dysphagia or odynophagia. Denies any dysuria or hematuria or any kind of syncopal episode. PHYSICAL EXAMINATION GENERAL: The patient is awake, alert, appears to be stable. VITAL SIGNS: Afebrile. HEENT: Normocephalic, atraumatic. Sclerae deeply icteric. NECK: Supple. HEART: Sounds regular. LUNGS: Clear. ABDOMEN: Soft. There is mild epigastric tenderness. There is no rebound or mass. EXTREMITIES: No edema or clubbing. LABORATORY DATA: BUN and creatinine normal. Liver enzymes: AST 371 and ALT 42, total bilirubin 15.4. PT 18.9 and INR 1.45. WBC of 7.82. Hemoglobin 10.4. Platelet count 20,000. IMPRESSION 1. Fever, possibly urinary in origin. 2. Cirrhosis. 3. Abdominal pain and nausea. 4. Significant thrombocytopenia and anemia. RECOMMENDATIONS: Continue on antibiotics at this point. Continue on supportive care including lactulose and proton pump inhibitor. Follow labs clinically. Job#: [id number] cc:FAVIAN BURDEN MD
[2018-06-06] MEDS: ONDANSETRON HCL INJ 2 MG/ML VIAL IV PRN (21:50)
[2018-06-06] MEDS: MORPHINE SULFATE INJ 4 MG/ML INJ IV PRN (21:50)
[2018-06-06] MEDS: CEFEPIME HCL 1 GM VIAL IV SCH (21:50)
[2018-06-07] VITALS (9 sets, daily range): BP systolic 97–123; BP diastolic 55–66
[2018-06-07] MEDS: CEFEPIME HCL 1 GM VIAL IV SCH ×3 (02:00→19:32)
[2018-06-07] MEDS: SODIUM CHLORIDE 0.9% 1000ML 1,000 ML IV SCH ×3 (02:24→18:24)
[2018-06-07 06:40] LABS: ALANINE AMINOTRANSFERASE 44 IU/L (0-55); ALBUMIN 2.7 g/dL (3.5-5.0); ALBUMIN/GLOBULIN RATIO 0.6 (0.8-2.0); ALKALINE PHOSPHATASE 133 IU/L (40-150); ANION GAP 12.9 mmol/L (8-16); BLOOD UREA NITROGEN 15 mg/dL (7-26); BUN/CREATININE RATIO 22 (6-25); CALCIUM 8.5 mg/dL (8.4-10.2); CARBON DIOXIDE 18 mmol/L (22-29); CHLORIDE 106 mmol/L (98-107); CREATININE, SERUM 0.67 mg/dL (0.57-1.11); EST GLOMERULAR FILTRATION RATE > 60 ML/MIN (60-); GLUCOSE 101 mg/dL (74-118); POTASSIUM 3.9 mmol/L (3.5-5.1); SODIUM 133 mmol/L (136-145)
[2018-06-07 06:46] LABS: INR 1.57; PROTHROMBIN TIME 20.1 seconds (11.9-14.5)
[2018-06-07 07:37] LABS: BASOPHILS % 0.3 % (0.0-1.0); EOSINOPHILS # (AUTO) 0.1 (0.0-0.4); EOSINOPHILS % 2.2 % (0.0-6.0); HEMATOCRIT 24.8 % (34.2-44.1); LYMPHOCYTES # (AUTO) 0.3 (1.0-3.2); LYMPHOCYTES % 9.1 % (18.0-39.1); MEAN CORPUSCULAR HGB CONC 33.1 g/dL (31-35); MEAN CORPUSCULAR VOLUME 108.8 fL (81-99); MONOCYTES # (AUTO) 0.5 (0.2-0.8); MONOCYTES % 14.3 % (4.4-11.3); NEUTROPHILS # (AUTO) 2.6 (2.1-6.9); NEUTROPHILS % 72.4 % (38.7-80.0); RED BLOOD COUNT 2.28 x10e6/uL (3.6-5.1); RED CELL DISTRIBUTION WIDTH 16.6 % (11.7-14.4)
[2018-06-07 07:38] LABS: PLATELET COUNT 12 x10e3/uL (140-360)
[2018-06-07 07:39] LABS: HEMOGLOBIN 8.2 g/dL (12.0-16.0)
[2018-06-07] MEDS: IBUPROFEN 400 MG TAB PO PRN (08:43)
[2018-06-07] MEDS: PANTOPRAZOLE SOD 40 MG TABEC PO SCH (08:43)
[2018-06-07] MEDS: LACTULOSE SYRUP 20 GM/30 ML UDC PO SCH ×2 (08:43→17:00)
[2018-06-07] MEDS: FUROSEMIDE 40 MG TAB PO SCH (08:43)
[2018-06-07] MEDS: VANCOMYCIN 1GM/NS 250 ML 250 ML IV SCH (08:43)
[2018-06-07] MEDS: RIFAMPIN 300 MG CAP PO SCH (08:43)
[2018-06-07] MEDS: [UNRECOGNIZED DRUG - REMARK] PO SCH (08:44)
[2018-06-07] MEDS ORDERED: URSODIOL 300 MG CAP PO SCH (09:00)
[2018-06-07] MEDS: MORPHINE SULFATE INJ 4 MG/ML INJ IV PRN ×2 (09:49→21:02)
--- NOTE | 2018-06-07 10:27 | Consultation ---
DATE OF CONSULTATION: June 07, 2018 REQUESTING PHYSICIAN: Dr. Ivana Martel and Dr. Baldwin. REASON FOR CONSULT: Heart murmur. HISTORY OF PRESENTING ILLNESS: Ms. Nicolás Greene is a 53-year-old lady with past medical history as listed below, presented with complaints of abdominal pain. Patient says that she is experiencing abdominal pain off and on for last 4 to 5 days. She has also had a fever. She reportedly has cirrhosis of liver and ascites. Has undergone paracentesis in August of this year, she was noted to have a heart murmur and so is consulted. She denies any chest pain, shortness of breath, or palpitations. She has a history of heart murmur. REVIEW OF SYMPTOMS: CONSTITUTIONAL: Has some fatigue and weakness. HEENT: Patient has headache. No blurring of vision, seizure, syncope. CARDIOVASCULAR: No chest pain, dyspnea, orthopnea, PND. RESPIRATORY: No cough. Has fever. No expectoration. GI: Has abdominal pain. Has some nausea. No vomiting or diarrhea. : No dysuria, frequency, incontinence. ALLERGIES: IODINE. MEDICATIONS: See list. PAST MEDICAL HISTORY: 1. History of cirrhosis of liver and ascites. Has undergone paracentesis in August of this year. 2. History of heart murmur. 3. History of thrombocytopenia. SOCIAL HISTORY: Does not smoke or drink. FAMILY HISTORY: Noncontributory. PAST SURGICAL HISTORY: History of hysterectomy, history of cholecystectomy, history of EGD, history of paracentesis. PHYSICAL EXAMINATION: GENERAL: Moderately built and nourished lady, awake, alert, not in any obvious distress. VITAL SIGNS: Heart rate is 87, blood pressure 123/66, respiratory rate is 18, temperature is 97.7. HEENT: Atraumatic. NECK: No JVD, bruit, thyromegaly, or lymphadenopathy. CARDIOVASCULAR: First and second heart sounds heard. 2/6 systolic murmur heard at the base. CHEST: Decreased air entry at the bases. No adventitious sounds appreciated. ABDOMEN: Mildly distended. Mild umbilical tenderness. EXTREMITIES: Trace edema. LABS: Sodium is 133, potassium 3.9, chloride is 106, bicarb is 18, BUN is 15, creatinine 0.6. Hemoglobin is 8.3, hematocrit 24.8, platelets are 12,000. White count is 3.6. EKG shows sinus rhythm, 94 beats per minute, leftward axis, normal intervals, nonspecific ST-T changes. IMPRESSION: 1. Abdominal pain. 2. History of cirrhosis of liver. 3. Heart murmur. 4. Thrombocytopenia. 5. Anemia. 6. Fever. PLAN: 1. Get echocardiogram to assess LV function and valvular function. 2. Antibiotics for fever as indicated. 3. Management of cirrhosis as per GI. 4. Further cardiac workup depending on clinical course. 5. I discussed my impression and plan of management with patient and she understands. As always, I appreciate and thank you very much for your referrals. Job#: [id number]
[2018-06-07 10:47] LABS: EOSINOPHILS % (MANUAL) 1 % (0-7); LYMPHOCYTES % (MANUAL) 2 % (19-48); MONOCYTES % (MANUAL) 16 % (3.4-9.0); NEUTROPHILS % (MANUAL) 81 % (40-74); PLATELET ESTIMATE MARKEDLY DECREASED; PLATELET MORPHOLOGY COMMENT NORMAL; RBC MORPHOLOGY COMMENT ABNORMAL
--- NOTE | 2018-06-07 10:50 | Consultation ---
DATE OF CONSULTATION: June 07, 2018 INFECTIOUS DISEASE CONSULT REASON FOR CONSULTATION: Fever. Thank you, Dr. Martel, for asking me to see this patient. HISTORY: This patient is a 53-year-old woman referred for fever. She presented to the emergency department yesterday with fever and chills for 2 days prior to arrival. She reports mild sore throat, nausea, vomiting, abdominal pain, and dark yellow urine. The patient takes lactulose at home. Her 's family member visited from [place] with a "cold". Most of her family members acquired the cold, including her 14-year-old son. The patient owns 3 dogs, which are healthy and fully vaccinated. She denies recent travel. She is on liver transplant at the [facility]. In the emergency department, she was noted to have fever to 103 degrees Fahrenheit, pulse 97, respiratory rate 17, blood pressure 155/73, and oxygen saturation 98% on room air. Initial laboratory studies showed blood leukocyte count of 7820 with 88.6% neutrophils, BUN 11, creatinine 0.67, AST 71, ALT 42, alk phos 129, and total bilirubin 15.4. Influenza antigen was negative, but the group A streptococcus antigen was positive. The patient underwent ultrasound-guided paracentesis with removal of only "10 mL of serous fluid". PAST MEDICAL HISTORY: Diabetes mellitus, type 2, decompensated primary biliary cirrhosis with portal hypertension and recurrent ascites, and thrombocytopenia. PAST SURGICAL HISTORY: Cholecystectomy and hysterectomy. ALLERGIES: IODINE. MEDICATIONS: See MAR. The current antibiotics as cefepime 1 g IVPB q.8 h., vancomycin 1 g IVPB q.12 h. and rifampin 300 mg p.o. daily. IMMUNIZATIONS: She has not received influenza vaccine this season. FAMILY HISTORY: Significant for diabetes mellitus. SOCIAL HISTORY: No alcohol or tobacco use. REVIEW OF SYSTEMS: As per history of present illness. PHYSICAL EXAMINATION GENERAL: No acute distress. VITALS: T-max 99.3, pulse 87, respiratory rate 18, blood pressure 123/66, weight 212 pounds. HEENT: Normocephalic. There is deep icterus, but no injection of the conjunctivae. There is no ear or nasal discharge. Moist oral mucosa with mild pharyngeal erythema. No exudate. NECK: Supple. No meningismus. LUNGS: Good air entry bilaterally. HEART: Normal S1 and S2. ABDOMEN: Soft with mild epigastric tenderness. EXTREMITIES: There is trace edema of the legs bilaterally. Dorsalis pedis and posterior tibial pulses are palpable. SKIN: There is jaundice, but no acute erythema. FIRST LINE PRODUCTION SUPERVISOR: Awake, alert and oriented to person, place and time. Nonfocal. Normal sensation to monofilament test of the feet. LABORATORY AND DIAGNOSTICS: WBC 3630, hemoglobin 8.2, platelets 12,000, neutrophils 72.4, lymphs 9.1, monos 14.3, eosinophils 2.2, basophils 0.3. BUN 15, creatinine 0.67, AST 64, ALT 44, alk phos 133, total bilirubin 19.4. Urinalysis is negative for pyuria. Blood culture is pending. Urine culture is also pending. Peritoneal fluid culture is pending. Peritoneal fluid analysis was not done. Chest x-ray showed patchy opacities of the right lung base, more likely atelectasis. IMPRESSION 1. Sepsis present on admission: The source appears to be a group A streptococcal pharyngitis, although spontaneous bacterial peritonitis cannot be excluded. 2. Decompensated biliary cirrhosis. 3. Severe thrombocytopenia. 4. Diabetes mellitus, type 2, controlled. PLAN 1. Await blood and peritoneal fluid culture results. Check throat culture. 2. Stop vancomycin and rifampin. Administer influenza vaccination (the patient agrees). Job#: [id number] DUNIA YANES
[2018-06-07] MEDS ORDERED: DEXAMETHASONE SOD PHOS 10 MG/1 ML VIAL IV ONE (11:00)
[2018-06-07] MEDS ORDERED: INFLUENZA VIRUS VAC SPLIT INJ 0.5 ML SYR IM ONE ×2 (11:00→15:15)
[2018-06-07] MEDS ORDERED: SODIUM CHLORIDE 0.9% 250ML 250 ML ONE (20:30)
[2018-06-07] MEDS ORDERED: DEXAMETHASONE SOD PHOS INJ 4 MG/ML VIAL ONE (20:34)
[2018-06-08] VITALS: BP 110/57
[2018-06-08] MEDS: ONDANSETRON HCL INJ 2 MG/ML VIAL IV PRN ×2 (00:06→06:34)
[2018-06-08] MEDS: SODIUM CHLORIDE 0.9% 1000ML 1,000 ML IV SCH ×3 (02:07→18:24)
[2018-06-08] MEDS: CEFEPIME HCL 1 GM VIAL IV SCH ×3 (02:07→22:20)
[2018-06-08] MEDS: MORPHINE SULFATE INJ 4 MG/ML INJ IV PRN ×3 (02:14→18:13)
[2018-06-08 04:00] VITALS: BP 116/61
[2018-06-08 07:33] LABS: HEMATOCRIT 24.2 % (34.2-44.1); LYMPHOCYTES # (AUTO) 0.2 (1.0-3.2); LYMPHOCYTES % 11.3 % (18.0-39.1); MEAN CORPUSCULAR HGB CONC 33.1 g/dL (31-35); MONOCYTES # (AUTO) 0.1 (0.2-0.8); MONOCYTES % 3.6 % (4.4-11.3); NEUTROPHILS # (AUTO) 1.6 (2.1-6.9); NEUTROPHILS % 83.6 % (38.7-80.0); RED BLOOD COUNT 2.22 x10e6/uL (3.6-5.1); RED CELL DISTRIBUTION WIDTH 16.3 % (11.7-14.4)
[2018-06-08 07:44] LABS: PLATELET COUNT 18 x10e3/uL (140-360)
[2018-06-08 08:00] VITALS: BP 116/57
[2018-06-08 08:00] LABS: ALANINE AMINOTRANSFERASE 36 IU/L (0-55); ALBUMIN 2.4 g/dL (3.5-5.0); ALBUMIN/GLOBULIN RATIO 0.6 (0.8-2.0); ALKALINE PHOSPHATASE 119 IU/L (40-150); ANION GAP 11.6 mmol/L (8-16); BLOOD UREA NITROGEN 18 mg/dL (7-26); BUN/CREATININE RATIO 28 (6-25); CALCIUM 8.2 mg/dL (8.4-10.2); CARBON DIOXIDE 19 mmol/L (22-29); CHLORIDE 106 mmol/L (98-107); CREATININE, SERUM 0.64 mg/dL (0.57-1.11); EST GLOMERULAR FILTRATION RATE > 60 ML/MIN (60-); GLUCOSE 165 mg/dL (74-118); POTASSIUM 4.6 mmol/L (3.5-5.1); SODIUM 132 mmol/L (136-145)
[2018-06-08] MEDS ORDERED: DEXAMETHASONE SOD PHOS INJ 4 MG/ML VIAL IV ONE (08:30)
[2018-06-08] MEDS: FUROSEMIDE 40 MG TAB PO SCH (08:32)
[2018-06-08] MEDS: PANTOPRAZOLE SOD 40 MG TABEC PO SCH (08:32)
[2018-06-08] MEDS: LACTULOSE SYRUP 20 GM/30 ML UDC PO SCH ×2 (08:33→17:00)
[2018-06-08] MEDS: [UNRECOGNIZED DRUG - REMARK] PO SCH (08:33)
[2018-06-08 11:24] LABS: BAND NEUTROPHILS % (MANUAL) 1 %; LYMPHOCYTES % (MANUAL) 3 % (19-48); METAMYELOCYTES % (MANUAL) 2 % (0-0); MONOCYTES % (MANUAL) 2 % (3.4-9.0); NEUTROPHILS % (MANUAL) 88 % (40-74); PLATELET MORPHOLOGY COMMENT NORMAL
[2018-06-08 11:25] LABS: PLATELET ESTIMATE MARKEDLY DECREASED
[2018-06-08 11:27] LABS: ANISOCYTOSIS SLIGHT; RBC MORPHOLOGY COMMENT ABNORMAL
[2018-06-08 12:00] VITALS: BP 104/54
[2018-06-08] MEDS ORDERED: SODIUM CHLORIDE 0.9% 50ML 50 ML ONE (12:52)
[2018-06-08 16:00] VITALS: BP 104/51
[2018-06-08 20:00] VITALS: BP 122/58
[2018-06-08] MEDS ORDERED: SODIUM CHLORIDE 0.9% 100 ML ONE (21:23)
[2018-06-08] MEDS: IBUPROFEN 400 MG TAB PO PRN (22:09)
[2018-06-08] MEDS: SUCRALFATE 1 GM TAB PO SCH (22:09)
--- NOTE | 2018-06-08 22:30 | Consultation ---
DATE OF CONSULTATION: June 07, 2018 REQUESTING PHYSICIAN: Dr. Aren Martel SERVICE: Hematology/oncology. REASON FOR CONSULTATION: Evaluation and management of the patient with known diagnosis of liver cirrhosis, now presented with sepsis and thrombocytopenia. HISTORY OF PRESENTING ILLNESS: Ms. Nicolás Greene is a very pleasant 52-year-old female who is very well known to me as she is my clinic patient and has a known history of liver cirrhosis secondary to nonalcoholic steatohepatitis and chronic pancytopenia requiring frequent transfusion and hospitalization due to decompensated liver cirrhosis as well as thrombocytopenia. She is admitted through emergency department due to epigastric pain and abdominal distension. She was also having fever. She was admitted to inpatient floor. Initial workup revealed thrombocytopenia. Subsequently, hematology/oncology has been consulted to assist with the management. PAST MEDICAL HISTORY 1. Nonalcoholic liver cirrhosis with esophageal varices and portal gastropathy. 2. Chronic thrombocytopenia, anemia and leukopenia. 3. 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 4. Status post evaluation at [facility] for liver transplantation. PAST SURGICAL HISTORY 1. Hysterectomy. 2. Cholecystectomy. 3. Multiple paracentesis. 4. Multiple EGD and colonoscopies. FAMILY HISTORY: Noncontributory. SOCIAL HISTORY: The patient lives in [place] with her family. Family is very supportive. No history of smoking, alcohol use or illicit drug use. ALLERGIES: IODINE. CURRENT MEDICATIONS: Reviewed and as per electronic medical record. REVIEW OF SYSTEMS: A 14-point review of systems negative except as mentioned in history of presenting illness as well as fatigue and tiredness. PHYSICAL EXAMINATION VITAL SIGNS: Reviewed and as per electronic medical record. HEENT: PERRLA. Intact eye movement. Head atraumatic, normocephalic. NECK: Supple. CVS: S1, S2 audible. RESPIRATORY: Decreased bilateral air entry. ABDOMEN: Distended. Positive bowel sounds. EXTREMITIES: Trace edema. NEURO: Patient is alert, awake. LABORATORY DATA: Reviewed and as per electronic medical record with platelet count of 12,000. ASSESSMENT AND PLAN: Ms. Nicolás Greene is a very pleasant 53-year-old female with known history of end-stage liver disease secondary to nonalcoholic steatohepatitis, presently on transplant list. She also developed severe pancytopenia, requiring thrombopoietin therapy in outpatient setting. She has had multiple hospitalizations due to recurrent ascites and abdominal distension. Now, she presented with fever, abdominal distension, not feeling well. She already had been seen and evaluated by gastroenterology and had paracentesis. Hematology/oncology had been consulted to assist with management, specifically thrombocytopenia. I had a lengthy discussion with the patient about her condition, status, importance of further workup. At this point, recommendation would be to provide supportive care. 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 I will give 1 jumbo platelet along with steroid. Closely monitor the patient. The patient also has anemia and leukopenia. At this point, counts appear to be stable, so we will monitor. Sepsis/spontaneous bacterial peritonitis/urinary tract infection. Infectious disease has been consulted. The patient has been started on antibiotics. Thank you, Dr. Martel, for the consult. I will continue to be available. Please call with questions. Job#: [id number]
[2018-06-08] MEDS: DIPHENHYDRAMINE HCL INJ 50 MG/ML VIAL IV PRN (22:39)
--- NOTE | 2018-06-08 23:37 | Consultation ---
DATE OF CONSULTATION: REQUESTING PHYSICIAN: Dr. rAen Martel SERVICE: Hematology/oncology. REASON FOR CONSULTATION: Evaluation and management of patient with known history of liver cirrhosis, admitted due to abdominal distention and pain. DICTATION CANCELLED (01:17) Job#: [id number] CQ
[2018-06-09] VITALS (7 sets, daily range): BP systolic 101–126; BP diastolic 55–66
[2018-06-09] MEDS: CEFEPIME HCL 1 GM VIAL IV SCH (02:10)
[2018-06-09] MEDS: MORPHINE SULFATE INJ 4 MG/ML INJ IV PRN (02:34)
[2018-06-09] MEDS: SODIUM CHLORIDE 0.9% 1000ML 1,000 ML IV SCH ×2 (05:28→11:48)
[2018-06-09 07:11] LABS: EOSINOPHILS % 0.6 % (0.0-6.0); HEMATOCRIT 24.7 % (34.2-44.1); HEMOGLOBIN 7.9 g/dL (12.0-16.0); LYMPHOCYTES # (AUTO) 0.5 (1.0-3.2); LYMPHOCYTES % 15.5 % (18.0-39.1); MEAN CORPUSCULAR HEMOGLOBIN 36.2 pg (28-32); MEAN CORPUSCULAR VOLUME 113.3 fL (81-99); MONOCYTES # (AUTO) 0.3 (0.2-0.8); MONOCYTES % 9.3 % (4.4-11.3); NEUTROPHILS # (AUTO) 2.5 (2.1-6.9); RED BLOOD COUNT 2.18 x10e6/uL (3.6-5.1); RED CELL DISTRIBUTION WIDTH 16.5 % (11.7-14.4)
[2018-06-09 07:30] LABS: PLATELET COUNT 17 x10e3/uL (140-360)
[2018-06-09 07:32] LABS: ALANINE AMINOTRANSFERASE 31 IU/L (0-55); ALBUMIN 2.3 g/dL (3.5-5.0); ALBUMIN/GLOBULIN RATIO 0.6 (0.8-2.0); ALKALINE PHOSPHATASE 109 IU/L (40-150); ANION GAP 11.2 mmol/L (8-16); BLOOD UREA NITROGEN 20 mg/dL (7-26); BUN/CREATININE RATIO 27 (6-25); CALCIUM 8.2 mg/dL (8.4-10.2); CARBON DIOXIDE 19 mmol/L (22-29); CHLORIDE 109 mmol/L (98-107); CREATININE, SERUM 0.73 mg/dL (0.57-1.11); EST GLOMERULAR FILTRATION RATE > 60 ML/MIN (60-); GLUCOSE 89 mg/dL (74-118); POTASSIUM 4.2 mmol/L (3.5-5.1); SODIUM 135 mmol/L (136-145)
[2018-06-09] MEDS: SUCRALFATE 1 GM TAB PO SCH ×4 (08:02→20:33)
[2018-06-09] MEDS: PANTOPRAZOLE SOD 40 MG TABEC PO SCH (08:02)
[2018-06-09] MEDS: [UNRECOGNIZED DRUG - REMARK] PO SCH (09:00)
[2018-06-09] MEDS: LACTULOSE SYRUP 20 GM/30 ML UDC PO SCH ×4 (09:08→21:00)
[2018-06-09] MEDS: FUROSEMIDE 40 MG TAB PO SCH (09:08)
[2018-06-09 09:21] LABS: BAND NEUTROPHILS % (MANUAL) 2 %; LYMPHOCYTES % (MANUAL) 3 % (19-48); MONOCYTES % (MANUAL) 6 % (3.4-9.0); NEUTROPHILS % (MANUAL) 82 % (40-74)
[2018-06-09 09:28] LABS: PLATELET ESTIMATE MARKEDLY DECREASED; PLATELET MORPHOLOGY COMMENT NORMAL; RBC MORPHOLOGY COMMENT ABNORMAL
[2018-06-09 09:32] LABS: ANISOCYTOSIS MODERATE; HYPOCHROMASIA SLIGHT; POIKILOCYTOSIS SLIGHT
[2018-06-09] MEDS: DIPHENHYDRAMINE HCL INJ 50 MG/ML VIAL IV PRN ×2 (11:48→23:44)
[2018-06-09] MEDS: AMPICILLIN SOD 1 GM/NS 50ML 50 ML IV SCH ×3 (12:25→23:44)
[2018-06-10] VITALS (8 sets, daily range): BP systolic 101–131; BP diastolic 52–60
[2018-06-10] MEDS: SODIUM CHLORIDE 0.9% 1000ML 1,000 ML IV SCH ×2 (01:35→06:40)
[2018-06-10] MEDS: AMPICILLIN SOD 1 GM/NS 50ML 50 ML IV SCH ×4 (06:40→23:30)
[2018-06-10] MEDS: SUCRALFATE 1 GM TAB PO SCH ×4 (07:53→21:17)
[2018-06-10] MEDS: PANTOPRAZOLE SOD 40 MG TABEC PO SCH (07:53)
[2018-06-10] MEDS: LACTULOSE SYRUP 20 GM/30 ML UDC PO SCH ×4 (07:53→21:00)
[2018-06-10] MEDS: [UNRECOGNIZED DRUG - REMARK] PO SCH (09:00)
[2018-06-10] MEDS: FUROSEMIDE 40 MG TAB PO SCH (09:23)
[2018-06-10] MEDS ORDERED: ONDANSETRON HCL INJ 2 MG/ML VIAL IV PRN (11:45)
[2018-06-10] MEDS: ONDANSETRON HCL INJ 2 MG/ML VIAL IV PRN ×2 (12:00→21:36)
[2018-06-10] MEDS: MORPHINE SULFATE INJ 4 MG/ML INJ IV PRN (21:29)
[2018-06-11] VITALS (8 sets, daily range): BP systolic 90–147; BP diastolic 43–72
[2018-06-11] MEDS: AMPICILLIN SOD 1 GM/NS 50ML 50 ML IV SCH ×4 (05:49→23:45)
[2018-06-11 06:17] LABS: BASOPHILS % 0.5 % (0.0-1.0); EOSINOPHILS # (AUTO) 0.1 (0.0-0.4); EOSINOPHILS % 2.1 % (0.0-6.0); HEMATOCRIT 27.9 % (34.2-44.1); HEMOGLOBIN 9.2 g/dL (12.0-16.0); LYMPHOCYTES # (AUTO) 0.8 (1.0-3.2); LYMPHOCYTES % 18.4 % (18.0-39.1); MEAN CORPUSCULAR HEMOGLOBIN 36.8 pg (28-32); MEAN CORPUSCULAR VOLUME 111.6 fL (81-99); MONOCYTES # (AUTO) 0.5 (0.2-0.8); MONOCYTES % 12.6 % (4.4-11.3); NEUTROPHILS # (AUTO) 2.8 (2.1-6.9); NEUTROPHILS % 65.9 % (38.7-80.0)
[2018-06-11 06:21] LABS: PLATELET COUNT 26 x10e3/uL (140-360)
[2018-06-11] MEDS: LACTULOSE SYRUP 20 GM/30 ML UDC PO SCH ×4 (07:30→20:45)
[2018-06-11] MEDS: SUCRALFATE 1 GM TAB PO SCH ×4 (07:50→21:22)
[2018-06-11] MEDS: PANTOPRAZOLE SOD 40 MG TABEC PO SCH (07:50)
[2018-06-11] MEDS: [UNRECOGNIZED DRUG - REMARK] PO SCH (09:00)
[2018-06-11] MEDS: SPIRONOLACTONE 25 MG TAB PO SCH (09:06)
[2018-06-11] MEDS: FUROSEMIDE 40 MG TAB PO SCH (09:06)
[2018-06-11] MEDS: MORPHINE SULFATE INJ 4 MG/ML INJ IV PRN (20:45)
[2018-06-11] MEDS: ONDANSETRON HCL INJ 2 MG/ML VIAL IV PRN (20:45)
[2018-06-11] MEDS: DIPHENHYDRAMINE HCL INJ 50 MG/ML VIAL IV PRN (23:23)
[2018-06-12 00:23] VITALS: BP 90/43
[2018-06-12 04:00] VITALS: BP 112/54
[2018-06-12] MEDS: AMPICILLIN SOD 1 GM/NS 50ML 50 ML IV SCH (05:40)
[2018-06-12 05:52] LABS: BASOPHILS % 0.5 % (0.0-1.0); EOSINOPHILS # (AUTO) 0.1 (0.0-0.4); EOSINOPHILS % 2.5 % (0.0-6.0); HEMATOCRIT 27.4 % (34.2-44.1); HEMOGLOBIN 9.2 g/dL (12.0-16.0); LYMPHOCYTES # (AUTO) 0.7 (1.0-3.2); LYMPHOCYTES % 19.1 % (18.0-39.1); MEAN CORPUSCULAR HEMOGLOBIN 36.5 pg (28-32); MEAN CORPUSCULAR HGB CONC 33.6 g/dL (31-35); MEAN CORPUSCULAR VOLUME 108.7 fL (81-99); MONOCYTES # (AUTO) 0.4 (0.2-0.8); MONOCYTES % 11.2 % (4.4-11.3); NEUTROPHILS # (AUTO) 2.4 (2.1-6.9); NEUTROPHILS % 66.2 % (38.7-80.0); RED BLOOD COUNT 2.52 x10e6/uL (3.6-5.1); RED CELL DISTRIBUTION WIDTH 16.5 % (11.7-14.4)
[2018-06-12 05:57] LABS: PLATELET COUNT 31 x10e3/uL (140-360)
[2018-06-12 06:13] LABS: ALANINE AMINOTRANSFERASE 33 IU/L (0-55); ALBUMIN 2.2 g/dL (3.5-5.0); ALBUMIN/GLOBULIN RATIO 0.6 (0.8-2.0); ALKALINE PHOSPHATASE 92 IU/L (40-150); ANION GAP 11.3 mmol/L (8-16); BLOOD UREA NITROGEN 9 mg/dL (7-26); BUN/CREATININE RATIO 16 (6-25); CALCIUM 8.1 mg/dL (8.4-10.2); CARBON DIOXIDE 26 mmol/L (22-29); CHLORIDE 105 mmol/L (98-107); CREATININE, SERUM 0.56 mg/dL (0.57-1.11); EST GLOMERULAR FILTRATION RATE > 60 ML/MIN (60-); GLUCOSE 80 mg/dL (74-118); POTASSIUM 4.3 mmol/L (3.5-5.1); SODIUM 138 mmol/L (136-145)
[2018-06-12] MEDS: LACTULOSE SYRUP 20 GM/30 ML UDC PO SCH (07:30)
[2018-06-12 07:59] VITALS: BP 112/54
[2018-06-12 08:16] VITALS: BP 113/54
[2018-06-12] MEDS: [UNRECOGNIZED DRUG - REMARK] PO SCH (09:00)
[2018-06-12] MEDS: SUCRALFATE 1 GM TAB PO SCH (09:44)
[2018-06-12] MEDS: PANTOPRAZOLE SOD 40 MG TABEC PO SCH (09:45)
[2018-06-12] MEDS: SPIRONOLACTONE 25 MG TAB PO SCH (09:45)
[2018-06-12] MEDS: FUROSEMIDE 40 MG TAB PO SCH (09:45)
[2018-06-12] MEDS ORDERED: AMOXICILLIN250 MG PO (10:48)
--- NOTE | 2018-06-12 20:04 | Progress Note ---
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 She is noted to have severe thrombocytopenia so hematology/oncology has been consulted. The patient's counts have significantly improved with platelet count of 31,000, hemoglobin 9.2 and white blood cell count of 36. The patient has been seen in an outpatient setting. She is going to be discharged today and follow up with me as an outpatient setting for continuation of care as well as possible switch to ancillary treatment . Job#: [id number] GH MTDD
--- NOTE | 2018-06-12 20:46 | Discharge Summary ---
She is as 53-year-old female patient who has severe sickness with advanced liver disease on liver transplant list and portal hypertension. She presented to the emergency room with the complaint of high-grade fever and at that time was complaining of throat pain. The patient had severe pancytopenia, thrombocytopenia. ADMITTING DIAGNOSES 1. Febrile neutropenic patient with advanced liver disease. 2. Pancytopenia. 3. Anemia. HOSPITAL COURSE SUMMARY: The patient was admitted with the above diagnoses. The patient was given broad-spectrum antibiotic coverage with vancomycin and Rifampin. An ID and GI consult and hematology consult was done. The patient was also given IV cefepime. The patient had throat swab done and it showed Strep positive. Other cultures were done to make sure there is no other underlying infection or any sepsis. The patient was required to have platelet transfusion and blood transfusions. The patient had urine culture that showed gram-negative rods. Later on the patient's antibiotics were changed to amoxicillin. The patient's urine showed E. coli. It was sensitive to ampicillin. Now upon stabilization, the patient is discharged home on oral antibiotic ampicillin. The patient will be followed up as an outpatient. The patient was advised to follow up with her transplant team for followup care. DISCHARGE DIAGNOSES 1. Febrile neutropenic patient. 2. Urinary tract infection. 3. Streptococcus pharyngitis. FAVIAN BURDEN MD Job#: [id number]
== END 2018-06-12 11:32 | disposition home or self-care (01) | DRG 872 ==
LOC: ER 06:57 → ERHOLD 11:26 → MED/SURG3 14:19
PROVIDERS: ADMIT Internal Medicine; ATTEND Internal Medicine
PROC: 0W9G3ZX Drainage of Peritoneal Cavity, Percutaneous Approach, Diagnostic (ICD-10-PCS; principal; 2018-06-06)
PROC: 30233R1 Transfusion of Nonautologous Platelets into Peripheral Vein, Percutaneous Approach (ICD-10-PCS; 2018-06-06)
DX: A41.9 Sepsis, unspecified organism (principal); D61.818 Other pancytopenia; N39.0 Urinary tract infection, site not specified; K76.6 Portal hypertension; K74.3 Primary biliary cirrhosis; D69.6 Thrombocytopenia, unspecified; E11.9 Type 2 diabetes mellitus without complications; D64.9 Anemia, unspecified; Z79.899 Other long term (current) drug therapy; R01.1 Cardiac murmur, unspecified; J02.0 Streptococcal pharyngitis; K75.81 Nonalcoholic steatohepatitis (NASH); R50.81 Fever presenting with conditions classified elsewhere; B96.20 Unspecified Escherichia coli [E. coli] as the cause of diseases classified elsewhere
CPT/HCPCS: 36415; 49083; 71045; 74470; 80053; 81001; 82140; 82550; 82553; 83518; 83605; 84484; 85025; 85049; 85610; 85730; 86850; 86900; 86945; 87040; 87070; 87086; 87186; 87205; 87400; 93005; 93306; 99284; J0290; J0692; J1100; J1200; J2270; J2405; J3370; J7030; J7050; P9034

== ENCOUNTER 2018-10-06 07:14 | Inpatient (IN) | payer BC, MEDICARE ==
[~2018-10-06] VITALS: Ht 157.5 cm; Wt 95.7 kg
[~2018-10-06 07:14] MED LIST changes: +AMOXICILLIN250 MG PO
--- OUTSIDE RECORDS SUMMARY | 2018-10-06 07:17 | XMS REPORT | Clinical Summary ---
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 Last Filed Vital Signs Not on file Plan of Treatment Health Maintenance Due Date Last Done Comments CERVICAL CANCER SCREENING 1988 BREAST CANCER SCREENING 2017 COLON CANCER SCREENING 2017 SHINGLES VACCINES (1 of 2017 2) INFLUENZA VACCINE 03/22/2018 Results Not on fileafter 10/05/2017 Insurance Payer Benefit Subscriber ID Type Phone Address Plan / Group [employer] TXP xxxxxxxxx Transplant CARE [facility] xxxxxxxxx HMO/PPO THCARE CHOICE/CHO ICE + UHC MEDICARE UNITED xxxxxxxxx HMO HEALTHCARE MEDICARE Advance Directives Patient has advance care planning documents on file. For more information, luciano hallman contact: Edis Marc [address] [place] [address]
--- OUTSIDE RECORDS SUMMARY | 2018-10-06 07:18 | XMS REPORT | Clinical Summary ---
Author Author [facility] Address Unknown Phone Unavailable Care Team Providers Care Night Club Manager Name Role Phone Aren Martel PCP Allergies Comments Active Allergy Reactions Severity Noted Date To Iodine Contrast Iodine And Iodide Swelling High 06/16/2016 Containing Products Medications End Date Status Medication Sig Dispensed Refills Start Date Active propranolol (INDERAL) 20 Take 20 mg by 0 MG tablet mouth daily . Active rifAXIMin (XIFAXAN) 550 Take 1 tablet 60 tablet 6 mg TabIndications: (550 mg 7 Cirrhosis of liver with total) by ascites, unspecified mouth 2 (two) hepatic cirrhosis type times daily. (HCC), Awaiting organ transplant status, Hepatic encephalopathy (HCC) Active iron dextran complex Inject 0 (IRON DEXTRAN intravenously IV)Indications: Ascites . of liver Active traZODone (DESYREL) 100 Take 100 mg 0 MG tabletIndications: by mouth Awaiting organ transplant nightly. status, Cirrhosis of liver with ascites, unspecified hepatic cirrhosis type (HCC) Active lactulose (CHRONULAC) 10 Take 20 g by 2 gram/15 mL solution mouth every 6 8 (six) hours. Active omeprazole (PRILOSEC) 40 Take 40 mg by 0 MG capsule mouth daily. Active ursodiol (ACTIGALL) 300 Take 300 mg 0 mg capsule by mouth daily. Active esomeprazole (NEXIUM) 20 Take 20 mg by 0 MG capsule mouth daily. Active spironolactone Take 1.5 45 tablet 5 (ALDACTONE) 100 MG tablets (150 8 tabletIndications: mg total) by Decompensated hepatic mouth daily. cirrhosis (HCC), Portal hypertension (HCC), Other ascites, Pedal edema Active furosemide (LASIX) 20 MG Take 1.5 90 tablet 5 tabletIndications: tablets (30 8 Decompensated hepatic mg total) by cirrhosis (HCC), Portal mouth 2 (two) hypertension (HCC), Other times daily. ascites, Pedal edema 05/23/2018 Discontinued furosemide (LASIX) 40 MG 40 mg daily . 0 tabletIndications: in the 6 morning 05/23/2018 Discontinued predniSONE (DELTASONE) 10 Take 10 mg by 0 MG tablet mouth daily. 05/23/2018 Discontinued benzonatate (TESSALON) Take 200 mg 0 200 MG capsule by mouth 3 (three) times daily as needed for Cough. 05/23/2018 Discontinued lactulose (CHRONULAC) 10 Take 20 g by 0 gram/15 mL (15 mL) mouth 3 solution (three) times daily. 05/23/2018 Discontinued pantoprazole (PROTONIX) Take 40 mg by 0 40 MG tablet mouth. 05/23/2018 Discontinued zinc sulfate (ZINCATE) Take 220 mg 0 220 (50) mg capsule by mouth daily. 05/23/2018 Discontinued albuterol HFA (VENTOLIN Inhale 1 puff 0 HFA) 90 mcg/actuation by mouth via inhaler inhaler every 6 (six) hours as needed for Wheezing. 03/21/2018 Discontinued spironolactone Take 2 30 tablet 2 (ALDACTONE) 50 MG tablets (100 8 tabletIndications: mg total) by Ascites of liver mouth daily. 05/23/2018 Discontinued melatonin 3 mg Tab Take 3 mg by 0 tabletIndications: mouth Ascites of liver nightly. 05/23/2018 Discontinued spironolactone Take 2 30 tablet 6 (ALDACTONE) 50 MG tablets (100 8 tabletIndications: mg total) by Ascites of liver mouth daily. 05/23/2018 Discontinued furosemide (LASIX) 20 MG Take 20 mg by 0 tabletIndications: in the mouth daily. afternoon 07/27/2018 Discontinued spironolactone Take 100 mg 0 (ALDACTONE) 100 MG tablet by mouth 8 daily. 07/27/2018 Discontinued furosemide (LASIX) 40 MG Take 40 mg by 0 tablet mouth daily. Active Problems Problem Noted Date Awaiting organ transplant status 04/27/2017 Anemia 10/09/2016 Thrombocytopenia 10/09/2016 Leukopenia 10/09/2016 Hypoalbuminemia 10/09/2016 Chronic diarrhea 10/09/2016 Obesity (BMI 30-39.9) 10/09/2016 GERD (gastroesophageal reflux disease) 10/09/2016 Cirrhosis of liver with ascites, unspecified hepatic cirrhosis type 10/08/2016 Post procedure discomfort 10/08/2016 C. difficile diarrhea 09/15/2016 Angina at rest 04/27/2016 Pre-transplant evaluation for chronic liver disease 03/25/2016 Last Assessment & Plan: She will be an acceptable candidate for liver transplant pending further imaging and testing. We will also need clearance from her [employer] oncologist that she does not have any [...] abdominal pain. She met with a local crane manager who diagnosed her with an "ovarian tumor" and has referred her to a gynecology oncologist. I have no seen documentation from her [employer] oncologist but she states that the "ovarian [...] liver disease. Her meld score is 19. Decompensated hepatic cirrhosis Portal hypertension Portal hypertensive gastropathy Hepatic encephalopathy Encounters Care Team Description Date Type Specialty Stella Hamilton RN 10/04/2018 Documentation Transplant Hepatology Monika Vanegas Appointment (Scheduled 11/30 mri & confirmed 10/24 clinic appt w/pt. Itinerary mailed.) 10/03/2018 Telephone Transplant Hepatology Monika Vanegas Appointment (LVM. Calling to schedule mri due mid november.) 10/03/2018 Telephone Transplant HepatMarleny Bradley RN Awaiting organ transplant status 10/02/2018 Orders Only Transplant HepatMarleny Bradlye RN Awaiting organ transplant status (Primary Dx) 10/02/2018 Orders Only Transplant HepatMarleny Bradley RN Awaiting organ transplant status (Primary Dx) 10/02/2018 Orders Only Transplant HepatMarleny Bradley RN Hepatic lesion (Primary Dx); Awaiting organ transplant status; Cancer screening 10/02/2018 Orders Only Transplant HepatMarleny Bradley RN Awaiting organ transplant status (Primary Dx); Angina at rest (HCC) 09/25/2018 Orders Only Transplant Hepatology Tim Ramos MD Awaiting organ transplant status 09/05/2018 Orders Only Lab Tim Ramos MD Awaiting organ transplant status; Cirrhosis of liver without ascites, unspecified hepatic cirrhosis type (HCC) 09/05/2018 Hospital Radiology Encounter Monika Vanegas Appointment (Called to schedule labs for meld update due now. Spoke w/pts daugther she said pt will have labs drawn on 09/05 when she gets mri done. Scheduled 10/24 clinic appt w/daughter. Itinerary mailed.) 08/31/2018 Telephone Transplant HepatMarleny Bradley RN Follow-up 08/07/2018 Telephone Transplant Hepatology Tim Ramos MD Screening for endocrine/metabolic/immunity disorders 07/25/2018 Hospital Encounter Tim Ramos MD Mindikoglu, Ayse Leyla, MD MPH Decompensated hepatic cirrhosis (HCC) (Primary Dx); Awaiting organ transplant status; Cancer screening; Portal hypertension (HCC); Portal hypertensive gastropathy (HCC); Hepatic encephalopathy (HCC); Immunity status testing; Screening for malignant neoplasm; Other ascites; Immunization counseling; Pedal edema; Screening for colon cancer 07/25/2018 Follow-Up Transplant Hepatology Monika Vanegas Appointment (Confirmed 07/25 appt w/pt.) 07/24/2018 Telephone Transplant Hepatology Marleny Pino RN Screening for endocrine/metabolic/immunity disorders (Primary Dx) 07/24/2018 Orders Only Transplant Hepatology Monika Vanegas 06/29/2018 Documentation Transplant Hepatology Romina Maral 06/29/2018 Documentation Transplant Hepatology Romina Maral Appointment (Rescheduled 09/05 clinic & bmds appt & rescheduled to 07/25 w/pt. Itinerary mailed.) 05/30/2018 Telephone Transplant Hepatology Monika Vanegas Appointment (Scheduled 06/08 mri & bmds & 09/05 clinic appt w/pts daughter. ) 05/25/2018 Telephone Transplant Hepatology Ronen Bunch MD Chest pain, unspecified type (Primary Dx); Epigastric pain; Cirrhosis of liver with ascites, unspecified hepatic cirrhosis type (HCC); Thrombocytopenia (HCC); Elevated LFTs 05/23/2018 Emergency Emergency Medicine Tim Ramos MD Awaiting organ transplant status (Primary Dx); Cirrhosis of liver with ascites, unspecified hepatic cirrhosis type (HCC) 05/23/2018 Follow-Up Transplant Hepatology Marleny Pino RN Awaiting organ transplant status (Primary Dx); Cirrhosis of liver without ascites, unspecified hepatic cirrhosis type (HCC); Bone disorder 05/23/2018 Orders Only Transplant Hepatology Aren Martel 05/23/2018 Outside Orders Monika Vanegas Appointment (LVM. Calling to confirm 05/23 appts.) 05/22/2018 Telephone Transplant Hepatology Monika Vanegas Awaiting organ transplant status 04/19/2018 Orders Only Transplant Hepatology Monika Vanegas Appointment (LVM. Calling to schedule labs for meld update.) 04/19/2018 Telephone Transplant Hepatology Monika Vanegas Awaiting organ transplant status 04/11/2018 Orders Only Transplant Hepatology Monika Vanegas Appointment (Called to schedule meld labs spoke w/pts daughter [facility] 04/10/2018 Telephone Transplant Hepatology Tim Ramos MD No Show 04/04/2018 Hospital Radiology Encounter Marleny Pino RN Follow-up 03/29/2018 Telephone Transplant Hepatology Monika Vanegas Appointment (Scheduled 05/23 clinic & bmds w/pt. Itinerary mailed.) 03/29/2018 Telephone Transplant HepatMarleny Bradley RN Osteopenia, unspecified location (Primary Dx) 03/28/2018 Orders Only Transplant HepatMarleny Bradley RN Follow-up 03/28/2018 Telephone Transplant HepatMarleny Bradley RN Follow-up 03/23/2018 Telephone Transplant HepatMonika Mg 03/23/2018 Documentation Transplant Hepatology Christiano Solis MD Jalal, Prasun Kumar, MD Ascites of liver 03/21/2018 Follow-Up Transplant HepatMonika Mg Appointment (Confirmed 03/21 appt.) 03/20/2018 Telephone Transplant Hepatology Christiano Solis MD Liver lesion 03/08/2018 Hospital Radiology Encounter Christiano Solis MD Awaiting organ transplant status 03/08/2018 Orders Only Lab Marleny Pino RN Awaiting organ transplant status 02/27/2018 Orders Only Transplant HepatMarleny Bradley RN Liver lesion (Primary Dx) 02/17/2018 Orders Only Transplant HepatMonika Mg Appointment (Scheduled 03/08 mri appt & [facility]. Itinerary mailed. ) 02/17/2018 Telephone Transplant HepatMarleny Bradley RN Awaiting organ transplant status (Primary Dx) 02/17/2018 Orders Only Transplant Hepatology Aissatou Mcguire MD Jalal, Tim Orosco MD Ascites of liver; Awaiting organ transplant status; Portal hypertension (HCC); Thrombocytopenia (HCC) 12/13/2017 Follow-Up Transplant HepatMonika Mg Appointment (Pt called and said she is currently admitted at [facility] but may be getting released later today if she is released she will be her for her 12/13 clinic appt if not she will call to rescheduled.) 12/12/2017 Telephone Transplant HepatMarleny Bradley RN Awaiting organ transplant status (Primary Dx) 11/21/2017 Orders Only Transplant HepatMonika Mg Appointment (Calling to find out where pt is getting labs done today for meld update.) 11/21/2017 Telephone Transplant HepatMonika Mg Appointment (Called to schedule labs for meld update [facility]. Pt said locomotive crane operator helper wanted her to go to ER 11/17 because her platelets were low pt had not gone i explained she should follow 's orders. Rescheduled january appt to 12/16. mld itinerary.) 11/18/2017 Telephone Transplant Hepatology Marleny Pino RN Follow-up 11/15/2017 Telephone Transplant Hepatology Monika Vanegas Appointment (LVM. Calling to schedule labs for meld update.) 11/14/2017 Telephone Transplant Hepatology Darlene Hernandez MA 10/28/2017 Documentation Transplant Darlene Hernandez MA 10/28/2017 Abstract Transplant Aissatou Mcguire MD Awaiting organ transplant status 10/07/2017 Hospital Radiology Encounter Aissatou Mcguire MD Awaiting organ transplant status 10/07/2017 Orders Only Lab after 10/05/2017 Family History Medical History Relation Name Comments Lung disease Father Pulmonary fibrosis Prostate cancer Father Breast cancer Maternal Aunt Breast cancer Maternal Aunt Relation Name Status Comments Father Maternal Aunt Maternal Aunt Social History Date Tobacco Use Types Packs/Day Years Used Never Smoker Smokeless Tobacco: Never Used Alcohol Use Drinks/Week oz/Week Comments No Sex Assigned at Date Recorded Not on file Industry Job Start Date Occupation Not on file Not on file Not on file Travel End Travel History Travel Start No recent travel history available. Last Filed Vital Signs Time Taken Vital Sign Reading 07/25/2018 10:02 AM [facility] [employer] Blood Pressure 124/77 07/25/2018 10:02 AM [facility] Pulse 73 07/25/2018 10:02 AM [employer] Temperature 36.5 C (97.7 F) 07/25/2018 10:02 AM [facility] [employer] Respiratory Rate 16 07/25/2018 10:02 AM [facility]ING C[employer]TER Oxygen Saturation 100% - Inhaled Oxygen - Concentration 07/25/2018 10:02 AM LINING C[employer]TER Weight 90.5 kg (199 lb 9.6 oz) 07/25/2018 10:02 AM [employer]ING C[employer] Height 162.6 cm (5' 4") 07/25/2018 10:02 AM [facility] C[employer] Body Mass Index 34.26 Plan of Treatment Care Team Description Date Type Specialty 10/24/2018 Follow-Up Transplant Hepatology Jeff Bradford MD [address] [address] 11/30/2018 Appointment Radiology Health Maintenance Due Date Last Done Comments INFLUENZA VACCINE 05/22/2018 Implants Device Identifier Shelf Expiration Date Model / Serial / Lot Implanted Type Area Manufactur er 02/18/2017 [id number] / / [id number] Device Clsr Angio-Seal Vip 6fr Cardiovasc [facility] [id number] - [id number] ular MED:CARDIA Implanted: Qty: 1 on 04/27/2016 by Greta Phan MD Procedures Comments Procedure Name Priority Date/Time Associated Diagnosis BILIRUBIN, DIRECT Routine 10/03/2018 Awaiting organ transplant 11:09 AM [employer]ING C[employer]TER status PROTHROMBIN TIME/INR Routine 10/03/2018 Awaiting organ transplant 11:09 AM [employer]ING C[employer]TER status CBC W/PLT COUNT & AUTO Routine 10/03/2018 Awaiting organ transplant DIFFERENTIAL 11:09 AM LINING CUTTER status COMPREHENSIVE METABOLIC Routine 10/03/2018 Awaiting organ transplant PANEL 11:09 AM LINING CUTTER status (CELLAVISION MANUAL DIFF) Routine 09/05/2018 Awaiting organ transplant 1:31 PM LINING C[employer]TER status CBC W/PLT COUNT & AUTO Routine 09/05/2018 Awaiting organ transplant DIFFERENTIAL 1:31 PM LINING C[employer]TER status PROTHROMBIN TIME/INR Routine 09/05/2018 Awaiting organ transplant 1:31 PM [employer] status COMPREHENSIVE METABOLIC Routine 09/05/2018 Awaiting organ transplant PANEL 1:31 PM LINING C[employer]TER status CBC W/PLT COUNT & AUTO Routine 09/05/2018 Awaiting organ transplant DIFFERENTIAL 1:31 PM [employer] status BILIRUBIN, DIRECT Routine 09/05/2018 Awaiting organ transplant 1:31 PM [employer]ING C[employer]TER status MR ABDOMEN WITH/WITHOUT Routine 09/05/2018 Awaiting organ transplant IV CONTRAST 1:21 PM LINING C[employer]TER status Cirrhosis of liver without ascites, unspecified hepatic cirrhosis type (HCC) POCT-CREATININE Routine 09/05/2018 12:48 PM LINING C[employer]TER XR DXA BONE DENSITY STUDY Routine 07/25/2018 Screening for 12:59 PM [employer] C[employer]TER endocrine/metabolic/immun ity disorders CBC W/PLT COUNT & AUTO Routine 07/25/2018 Awaiting organ transplant DIFFERENTIAL 12:20 PM [employer] status CBC W/PLT COUNT & AUTO Routine 07/25/2018 Awaiting organ transplant DIFFERENTIAL 12:20 PM LINING CUTTER status PROTHROMBIN TIME/INR Routine 07/25/2018 Awaiting organ transplant 12:19 PM LINING C[employer] status COMPREHENSIVE METABOLIC Routine 07/25/2018 Awaiting organ transplant PANEL 12:19 PM LINING C[employer]TER status BILIRUBIN, DIRECT Routine 07/25/2018 Awaiting organ transplant 12:19 PM [employer] status ALPHA FETOPROTEIN (AFP), Routine 07/25/2018 Awaiting organ transplant TUMOR MARKER 12:19 PM LINING C[employer]TER status Cancer screening ED ECG INTERPRETATION Routine 05/23/2018 1:18 PM CDT XR CHEST 1 VIEW STAT 05/23/2018 PORTABLE/BEDSIDE 12:06 PM CDT CBC W/PLT COUNT & AUTO STAT 05/23/2018 DIFFERENTIAL 11:17 AM CDT CREATINE KINASE (CK), STAT 05/23/2018 TOTAL AND MB 11:17 AM CDT TROPONIN I STAT 05/23/2018 11:17 AM CDT LIPASE STAT 05/23/2018 11:17 AM CDT HEPATIC FUNCTION PANEL STAT 05/23/2018 11:17 AM CDT BASIC METABOLIC PANEL (7) STAT 05/23/2018 11:17 AM CDT CBC W/PLT COUNT & AUTO STAT 05/23/2018 DIFFERENTIAL 11:17 AM CDT ECG 12-LEAD Routine 05/23/2018 10:42 AM CDT PROTHROMBIN TIME/INR Routine 04/20/2018 Awaiting organ transplant 9:26 AM CDT status COMPREHENSIVE METABOLIC Routine 04/20/2018 Awaiting organ transplant PANEL 9:26 AM CDT status CBC W/PLT COUNT & AUTO Routine 04/20/2018 Awaiting organ transplant DIFFERENTIAL 9:26 AM CDT status BILIRUBIN, DIRECT Routine 04/20/2018 Awaiting organ transplant 9:26 AM CDT status MR ABDOMEN WITH/WITHOUT Routine 03/08/2018 Liver lesion IV CONTRAST 11:38 AM CDT POCT-CREATININE Routine 03/08/2018 11:09 AM CDT CBC W/PLT COUNT & AUTO Routine 03/08/2018 Awaiting organ transplant DIFFERENTIAL 9:46 AM CDT status PROTHROMBIN TIME/INR Routine 03/08/2018 Awaiting organ transplant 9:46 AM CDT status COMPREHENSIVE METABOLIC Routine 03/08/2018 Awaiting organ transplant PANEL 9:46 AM CDT status CBC W/PLT COUNT & AUTO Routine 03/08/2018 Awaiting organ transplant DIFFERENTIAL 9:46 AM CDT status BILIRUBIN, DIRECT Routine 03/08/2018 Awaiting organ transplant 9:46 AM CDT status ALPHA FETOPROTEIN (AFP), Routine 03/08/2018 Awaiting organ transplant TUMOR MARKER 9:46 AM CDT status PROTHROMBIN TIME/INR Routine 11/22/2017 Awaiting organ transplant 9:26 AM CDT status COMPREHENSIVE METABOLIC Routine 11/22/2017 Awaiting organ transplant PANEL 9:26 AM CDT status CBC W/PLT COUNT & AUTO Routine 11/22/2017 Awaiting organ transplant DIFFERENTIAL 9:26 AM CDT status BILIRUBIN, DIRECT Routine 11/22/2017 Awaiting organ transplant 9:26 AM CDT status MR ABDOMEN WITH/WITHOUT Routine 10/07/2017 Awaiting organ transplant IV CONTRAST 11:45 AM LINING C[employer]TER status CBC W/PLT COUNT & AUTO Routine 10/07/2017 Awaiting organ transplant DIFFERENTIAL 9:19 AM LINING C[employer]TER status CBC W/PLT COUNT & AUTO Routine 10/07/2017 Awaiting organ transplant DIFFERENTIAL 9:19 AM LINING [employer]TER status BILIRUBIN, DIRECT Routine 10/07/2017 Awaiting organ transplant 9:19 AM LINING C[employer]TER status PROTHROMBIN TIME/INR Routine 10/07/2017 Awaiting organ transplant 9:19 AM LINING C[employer]TER status COMPREHENSIVE METABOLIC Routine 10/07/2017 Awaiting organ transplant PANEL 9:19 AM LINING C[employer]TER status after 10/05/2017 Results * Prothrombin time/INR (10/03/2018 11:09 AM LINING CUTTER) Only the most recent of 7 results within the time period is included. INR 1.5 (H) [facility] Comment: Reference Range 0.9-1.1 Moderate-intensity Warfarin Therapy 2.0-3.0 Higher-intensity Warfarin Therapy 3.0-4.0 PT 14.9 (H) 9.0 - 11.5 sec [facility] Comment: For more information on this test, go to: http://education.[employer].com/faq/PGW775 Specimen Blood Narrative Performed At FASTING:YES [facility] FASTING: YES Resulting Agency Comment Performing Organization Information: Site ID: [id number] Name: [facility] Address: [address] [place] [id number] Director: Li Alvarenga Performing Organization Address City/State/Zipcode Phone Number [facility] [address] [place] [address] [facility] * CBC with platelet count + automated diff (10/03/2018 11:09 AM LINING CUTTER) Only the most recent of 3 results within the time period is included. WBC 2.7 (L) 3.8 - 10.8 Thousand/uL [facility] RBC 2.81 (L) 3.80 - 5.10 Million/uL [facility] Hemoglobin 10.2 (L) 11.7 - 15.5 g/dL [facility] Hematocrit 28.7 (L) 35.0 - 45.0 % [facility] MCV 102.1 (H) 80.0 - 100.0 fL [facility] MCH 36.3 (H) 27.0 - 33.0 pg [facility] MCHC 35.5 32.0 - 36.0 g/dL [facility] RDW 13.8 11.0 - 15.0 % [facility] Platelets 17 (L) 140 - 400 Thousand/uL [facility] Comment: Verified by repeat analysis. Giant platelets noted. MPV 13.2 (H) 7.5 - 12.5 fL [facility] # Neutros 1,601 1,500 - 7,800 cells/uL [facility] # Lymphs 635 (L) 850 - 3,900 cells/uL [facility] # Monos 338 200 - 950 cells/uL [facility] # Eos 108 15 - 500 cells/uL [facility] # Baso 19 0 - 200 cells/uL [facility] % Neutros 59.3 % [facility] % Lymphs 23.5 % [facility] % Monos 12.5 % [facility] % Eos 4.0 % [facility] % Baso 0.7 % [facility] Specimen Blood Narrative Performed At FASTING:YES [facility] FASTING: YES Resulting Agency Comment Performing Organization Information: Site ID: [id number] Name: [facility] Address: [address] [place] [phone] Director: Li Alvarenga Performing Organization Address City/State/Zipcode Phone Number [facility] [address] [place] [address] [facility] * Bilirubin, direct (10/03/2018 11:09 AM LINING CUTTER) Only the most recent of 7 results within the time period is included. Bilirubin, Total 6.8 (H) 0.2 - 1.2 mg/dL [facility] Bilirubin, Direct 2.0 (H) < OR=0.2 mg/dL [facility] Bilirubin, Indirect 4.8 (H) 0.2 - 1.2 mg/dL (calc) [facility] Specimen Blood Narrative Performed At FASTING:YES [facility] FASTING: YES Resulting Agency Comment Performing Organization Information: Site ID: [id number] Name: [facility] Address: [address] [place] [phone] Director: Li Alvarenga Performing Organization Address City/State/Zipcode Phone Number [facility] [phone] [place] [address] [facility] * Comprehensive metabolic panel (10/03/2018 11:09 AM LINING CUTTER) Only the most recent of 7 results within the time period is included. Glucose 95 65 - 99 mg/dL [facility] Comment: Fasting reference interval BUN 11 7 - 25 mg/dL [facility] Creatinine 0.46 (L) 0.50 - 1.05 mg/dL [facility] Comment: For patients >49 years of age, the reference limit for Creatinine is approximately 13% higher for people identified as -Chinese. eGFR If NonAfricn Am 115 > OR=60 mL/min/1.73m2 [facility] eGFR If Africn Am 133 > OR=60 mL/min/1.73m2 [facility] BUN/Creatinine Ratio 24 (H) 6 - 22 (calc) [facility] Sodium 137 135 - 146 mmol/L [facility] Potassium, Serum 4.5 3.5 - 5.3 mmol/L [facility] Chloride 106 98 - 110 mmol/L [facility] Carbon Dioxide, Total 27 20 - 32 mmol/L [facility] Calcium, Serum 8.2 (L) 8.6 - 10.4 mg/dL [facility] Protein, Total, Serum 6.2 6.1 - 8.1 g/dL [facility] Albumin 2.6 (L) 3.6 - 5.1 g/dL [facility] GLOBULIN ([facility]) 3.6 1.9 - 3.7 g/dL (calc) [facility] Albumin Globulin Ratio 0.7 (L) 1.0 - 2.5 (calc) [facility] Bilirubin, Total 6.8 (H) 0.2 - 1.2 mg/dL [facility] Alkaline Phosphatase, S 146 (H) 33 - 130 U/L [facility] AST (SGOT) 57 (H) 10 - 35 U/L [facility] ALT (SGPT) 29 6 - 29 U/L [facility] Specimen Blood Narrative Performed At FASTING:YES [facility] FASTING: YES Resulting Agency Comment Performing Organization Information: Site ID: [id number] Name: [facility] Address: [address] [place] [phone] Director: Li Alvarenga Performing Organization Address City/State/Zipcode Phone Number [facility] [phone] [place] [address] [facility] * Manual Differential (09/05/2018 1:31 PM LINING CUTTER) % Neutros 79 % [facility] % Lymphs 12 % [facility] % Monos 5 % [facility] % Eos 2 % [facility] % Baso 2 % [facility] # Neutros 2.69 1.56 - 6.13 K/ul [facility] # Lymphs 0.41 (L) 1.18 - 3.74 K/ul [facility] # Monos 0.17 (L) 0.24 - 0.36 K/uL [facility] # Eos 0.07 0.04 - 0.36 K/uL [facility] # Baso 0.07 0.01 - 0.08 K/uL [facility] Total Counted 100 [facility] WBC Morphology Normal [facility] Platelet Morphology Normal [facility] Polychromasia 1+ few [facility] Anisocytosis 1+ few [facility] Poikilocytes 1+ few [facility] Artifact Present [facility] Platelet Conc Decreased [facility] Specimen Blood Narrative Performed At Received comment: [facility] User comments: [facility] Slide comments: Performing Organization Address City/State/Zipcode Phone Number [facility] [address] [place] [address] MED[facility]ENTER * CBC with platelet count + automated diff (09/05/2018 1:31 PM LINING CUTTER) Only the most recent of 5 results within the time period is included. WBC 3.4 (L) 3.5 - 10.5 K/L [facility] RBC 2.75 (L) 3.93 - 5.22 M/L [facility] Hemoglobin 9.9 (L) 11.2 - 15.7 GM/DL [facility] Hematocrit 30.6 (L) 34.1 - 44.9 % [facility] MCV 111.3 (H) 79.4 - 94.8 fL [facility] [facility] MCH 36.0 (H) 25.6 - 32.2 pg [facility] MCHC 32.4 32.2 - 35.5 GM/DL [facility] RDW 16.6 (H) 11.7 - 14.4 % [facility] Platelets 30 (L) 150 - 450 K/CU MM [facility] MPV 12.7 (H) 9.4 - 12.3 fL [facility] nRBC 0 0 - 0 /100 WBC [facility] Specimen Blood Performing Organization Address City/State/Zipcode Phone Number [facility] [address] [place] [address] MEDICAL CENTER * MRI abdomen with and without contrast (09/05/2018 1:21 PM LINING CUTTER) Only the most recent of 3 results within the time period is included. Narrative Performed At FINAL REPORT [facility] MRI of the abdomen. CLINICAL HISTORY: on liver transplant list. COMPARISON STUDY: March 08, 2018. Technique: Multiplanar, multisequence imaging of the abdomen was acquired both pre and post administration of intravenous gadolinium in a dynamic fashion. No oral contrast was administered. FINDINGS: No pleural effusion is seen. The liver is markedly nodular and cirrhotic in appearance. Post administration of intravenous gadolinium in a dynamic fashion, a 1.4 x 1.4 cm arterial enhancing lesion is seen in segment eight which previously measured 1.3 cm suggesting a possible minimal increase in size. This lesion demonstrates no washout and no T2 weighted signal abnormality. Other areas of enhancement are seen including a 8 mm focus in segment six which is stable from October 07, 2017. No new foci of enhancement are seen. The portal vein remains patent measuring 1.5 cm. The spleen is enlarged measuring 17.4 cm in length. The pancreas, kidneys and adrenal glands are within normal limits. Mild to moderate ascites is seen. Extensive portal hypertension is seen with massive paraesophageal varices and a dilated left gastric vein. Some anterior abdominal wall collaterals are also present. The gallbladder is absent. No biliary dilatation is seen. The visualized osseous structures demonstrate red marrow conversion. IMPRESSION: 1. Nodular, cirrhotic appearing liver with mild to moderate ascites. 2. Two stable enhancing indeterminate right lobe nodules for which continued follow-up is recommended. 3. Splenomegaly. 4. Evidence of portal hypertension. Signed: Jacques Dewitt MD Report Verified Date/Time:09/05/2018 15:35:55 Reading Location: [address] Radiology Reading Room Procedure Note Interface, External Ris In - 09/05/2018 3:38 PM LINING CUTTER FINAL REPORT MRI of the abdomen. CLINICAL HISTORY: on liver transplant list. COMPARISON STUDY: March 08, 2018. Technique: Multiplanar, multisequence imaging of the abdomen was acquired both pre and post administration of intravenous gadolinium in a dynamic fashion. No oral contrast was administered. FINDINGS: No pleural effusion is seen. The liver is markedly nodular and cirrhotic in appearance. Post administration of intravenous gadolinium in a dynamic fashion, a 1.4 x 1.4 cm arterial enhancing lesion is seen in segment eight which previously measured 1.3 cm suggesting a possible minimal increase in size. This lesion demonstrates no washout and no T2 weighted signal abnormality. Other areas of enhancement are seen including a 8 mm focus in segment six which is stable from October 07, 2017. No new foci of enhancement are seen. The portal vein remains patent measuring 1.5 cm. The spleen is enlarged measuring 17.4 cm in length. The pancreas, kidneys and adrenal glands are within normal limits. Mild to moderate ascites is seen. Extensive portal hypertension is seen with massive paraesophageal varices and a dilated left gastric vein. Some anterior abdominal wall collaterals are also present. The gallbladder is absent. No biliary dilatation is seen. The visualized osseous structures demonstrate red marrow conversion. IMPRESSION: 1. Nodular, cirrhotic appearing liver with mild to moderate ascites. 2. Two stable enhancing indeterminate right lobe nodules for which continued follow-up is recommended. 3. Splenomegaly. 4. Evidence of portal hypertension. Signed: Jacques Dewitt MD Report Verified Date/Time: 09/05/2018 15:35:55 Reading Location: [address] Radiology Reading Room Performing Organization Address City/[facility] Phone Number [facility] * POC-Creatinine (09/05/2018 12:48 PM LINING CUTTER) Only the most recent of 2 results within the time period is included. POC-Creatinine 0.4 (L)Comment: TESTED AT 0.6 - 1.3 mg/dL [facility] [address] [facility] [address] POC-EGFR 168 mL/min/1.73M2 [facility] Specimen Blood Performing Organization Address [facility] Phone Number [facility] [address] [place], [place] [id number] [facility] * XR dxa bone density study (07/25/2018 12:59 PM LINING CUTTER) Narrative Performed At FINAL REPORT [facility] Bone mineral density study 07/25/2018 at 1259. CLINICAL INDICATION: Osteoporosis. COMPARISON: None available FINDINGS: Evaluation of the left and right femoral necks and lumbar spine was performed utilizing a [employer] bone densitometer. The left femoral neck bone mineral density is 1.038gm/cm2, the T-score is 0.0, and the Z-score is 0.3. The right femoral neck total bone mineral density is 1.064gm/cm2, the T-score is 0.2, and the Z-score is 0.5. The lumbar spine total bone mineral density is 1.145gm/cm2, the T-score is -0.3, and the Z-score is -0.6. IMPRESSION: WHO classification of normal for the bilateral femoral necks and lumbar spine. Signed: Adan Mohamud MD Report Verified Date/Time:07/25/2018 15:48:51 Reading Location: [facility] Radiology Reading Room Procedure Note Interface, External Ris In - 07/25/2018 3:51 PM LINING CUTTER FINAL REPORT Bone mineral density study 07/25/2018 at 1259. CLINICAL INDICATION: Osteoporosis. COMPARISON: None available FINDINGS: Evaluation of the left and right femoral necks and lumbar spine was performed utilizing a [employer] bone densitometer. The left femoral neck bone mineral density is 1.038gm/cm2, the T-score is 0.0, and the Z-score is 0.3. The right femoral neck total bone mineral density is 1.064gm/cm2, the T-score is 0.2, and the Z-score is 0.5. The lumbar spine total bone mineral density is 1.145gm/cm2, the T-score is -0.3, and the Z-score is -0.6. IMPRESSION: WHO classification of normal for the bilateral femoral necks and lumbar spine. Signed: Adan Mohamud MD Report Verified Date/Time: 07/25/2018 15:48:51 Reading Location: [facility] Radiology Reading Room Performing Organization Address City/[facility]code Phone Number [facility] * Alpha fetoprotein (AFP), tumor marker (07/25/2018 12:19 PM LINING CUTTER) Only the most recent of 2 results within the time period is included. Alpha-Fetoprotein 2.2 <10.0 ng/mL [facility] Specimen Blood Performing Organization Address City/[facility]/Zipcode Phone Number [facility] [address] [place] [address] [facility] * ED ECG Interpretation (05/23/2018 1:18 PM CDT) Narrative Performed At Ronen Bunch MD 05/23/20181:18 PM ECG/EKG Interpretation [...] 1 view portable / bedside (05/23/2018 12:06 PM CDT) Narrative Performed At FINAL REPORT [facility] Chest one view INDICATION: Shortness of breath COMPARISON: 11/05/2016 IMPRESSION: Previously seen right upper lobe nodularity is not apparent on this study. There are coarsened interstitial markings. No focal consolidation, edema, pleural effusion, or pneumothorax is seen. The cardiomediastinal silhouette is unremarkable. The bones appear intact. Signed: Eric Velazquez MD Report Verified Date/Time:05/23/2018 12:16:57 Reading Location: [facility] Radiology Reading Room Procedure Note Interface, [...] Report Verified Date/Time: 05/23/2018 12:16:57 Reading Location: [facility] Radiology Reading Room Performing Organization Address City/State/Zipcode Phone Number [facility] * Troponin I (05/23/2018 11:17 AM CDT) Troponin I <0.01 0.00 - 0.03 ng/mL [facility] Specimen Blood - Arm, Right Narrative Performed At Troponin I (TnI) levels must be interpreted in the context of the presenting [facility] symptoms and the clinical findings. Elevated TnI levels indicate myocardial [facility] damage, but are not specific for ischemic heart disease. Elevated TnI levels are seen in patients with other cardiac conditions (including myocarditis and congestive heart failure), and slight TnI elevations occur in patients with other conditions, including sepsis, renal failure, acidosis, acute neurological disease, and persistent tachyarrhythmia. Performing Organization Address City/[facility] Hospitalcode Phone Number [address] * Lipase (05/23/2018 11:17 AM CDT) Lipase 40 8 - 78 U/L [facility] Specimen Blood - Arm, Right Narrative Performed At Specimen moderately icteric [facility] Performing Organization Address [facility] Phone Number [address] * Creatine Kinase (CK), Total and MB (05/23/2018 11:17 AM CDT) Total CK 115 29 - 200 U/L [facility] CK-MB 1.5 0.0 - 6.6 ng/mL [facility] MB Relative Index 1.3 % [facility] Specimen Blood - Arm, Right Narrative Performed At CK-MB Reference Range: [facility] <6.7Normal [facility] 6.7-10.0Borderline >10.0 Abnormal Performing Organization Address [facility] Hospital[facility]oid [place] [address] [phone] * Hepatic function panel (05/23/2018 11:17 AM CDT) Protein, Total 7.6 6.0 - 8.3 gm/dL [facility] Albumin 2.8 (L) 3.5 - 5.0 g/dL [facility] Total Bilirubin 7.0 (H) 0.2 - 1.2 mg/dL [facility] Bilirubin, Direct 2.0 (H) 0.1 - 0.5 mg/dL [facility] Alkaline Phosphatase 172 (H) 40 - 150 U/L [facility] AST 56 (H) 5 - 34 U/L [facility] ALT 28 6 - 55 U/L [facility] Specimen Blood - Arm, Right Narrative Performed At Specimen moderately icteric [facility] Performing Organization Address City/[facility]code Phone Number [facility] [address] [place] [address] [facility] * Basic Metabolic Panel (05/23/2018 11:17 AM CDT) Sodium 136 136 - 145 meq/L [facility] Potassium 4.1 3.5 - 5.1 meq/L [facility] Chloride 106 98 - 107 meq/L [facility] CO2 24 22 - 29 meq/L [facility] BUN 13 7 - 21 mg/dL [facility] Creatinine 0.65 0.57 - 1.25 mg/dL [facility] Glucose 109 (H) 70 - 105 mg/dL [facility] Calcium 8.4 8.4 - 10.2 mg/dL [facility] EGFR 96Comment: ESTIMATED GFR IS mL/min/1.73 sq m [facility] NOT ACCURATE CREATININE [facility] CLEARANCE IN PREDICTING GLOMERULAR FILTRATION RATE. ESTIMATED GFR IS NOT APPLICABLE FOR DIALYSIS PATIENTS. Specimen Blood - Arm, Right Narrative Performed At Specimen moderately icteric [facility] Performing Organization Address City/State/[facility] Hospitalcode Phone Number [facility] [address] [place] [address] [facility] * ECG 12 lead (05/23/2018 10:42 AM CDT) Narrative Performed At Ventricular Rate 74 BPM GE MUSE Atrial Rate 74 BPM P-R Interval 154 ms QRS Duration 92 ms Q-T Interval 424 ms QTC Calculation(Bazett) 470 ms P [place] 45 degrees R [place] -20 degrees T [place] 68 degrees Normal sinus rhythm Possible Left atrial enlargement Left ventricular hypertrophy Abnormal ECG Confirmed by MD Zabala Mahboob ([id number]) on 05/23/2018 10:07:49 PM Procedure Note Interface, External Ris In - 05/23/2018 10:07 PM CDT Ventricular Rate 74 BPM Atrial Rate 74 BPM P-R Interval 154 ms QRS Duration 92 ms Q-T Interval 424 ms QTC Calculation(Bazett) 470 ms P [place] 45 degrees R [place] -20 degrees T [place] 68 degrees Normal sinus rhythm Possible Left atrial enlargement Left ventricular hypertrophy Abnormal ECG Confirmed by MD Zabala Mahboob ([id number]) on 05/23/2018 10:07:49 PM Performing Organization Address City/State/Zipcode Phone Number JUANCARLOS NRAAYANAN after 10/05/2017 Insurance Payer Benefit Subscriber ID Type Phone Address Plan / Group BLUE CROSS/BLUE SHIELD BCBS OS xxxxxxxxxxxxxxx PPO [phone] [address] POS/PPO/[place] [address] O CARE IMPROVEMENT MEDICARE CARE xxxxxxxxx MGD CARE IMPROVEMEN T PLUS Advance Directives For more information, please contact: [facility] [address] [place] [address] Date Inactivated Comments Code Status Date Activated 04/27/2016 4:08 PM Full Code 04/27/2016 6:18 AM This code status was determined by: Patient
[2018-10-06] MEDS ORDERED: SODIUM CHLORIDE 0.9% 1000ML 1,000 ML IV ONE ×2 (07:30→09:15)
[2018-10-06] MEDS ORDERED: METOCLOPRAMIDE HCL 10 MG/2ML VIAL IV ONE (08:00)
[2018-10-06] MEDS ORDERED: DIPHENHYDRAMINE HCL INJ 50 MG/ML VIAL IV ONE (08:00)
[2018-10-06] MEDS ORDERED: KETOROLAC TROMETHAMINE 30 MG/ML VIAL IV ONE (08:00)
[2018-10-06] MEDS ORDERED: SODIUM CHLORIDE 0.9% 50ML 50 ML ONE (08:34)
[2018-10-06 08:38] LABS: BASOPHILS % 0.3 % (0.0-1.0); EOSINOPHILS # (AUTO) 0.1 (0.0-0.4); EOSINOPHILS % 0.8 % (0.0-6.0); HEMATOCRIT 28.1 % (34.2-44.1); HEMOGLOBIN 9.3 g/dL (12.0-16.0); LYMPHOCYTES # (AUTO) 0.2 (1.0-3.2); LYMPHOCYTES % 3.9 % (18.0-39.1); MEAN CORPUSCULAR HEMOGLOBIN 35.1 pg (28-32); MEAN CORPUSCULAR HGB CONC 33.1 g/dL (31-35); MONOCYTES # (AUTO) 0.6 (0.2-0.8); MONOCYTES % 9.8 % (4.4-11.3); NEUTROPHILS # (AUTO) 5.3 (2.1-6.9); NEUTROPHILS % 84.6 % (38.7-80.0); RED BLOOD COUNT 2.65 x10e6/uL (3.6-5.1); RED CELL DISTRIBUTION WIDTH 15.9 % (11.7-14.4)
[2018-10-06 08:52] LABS: ALANINE AMINOTRANSFERASE 34 IU/L (0-55); ALBUMIN 2.5 g/dL (3.5-5.0); ALBUMIN/GLOBULIN RATIO 0.7 (0.8-2.0); ALKALINE PHOSPHATASE 110 IU/L (40-150); ANION GAP 11.9 mmol/L (8-16); BLOOD UREA NITROGEN 11 mg/dL (7-26); BUN/CREATININE RATIO 19 (6-25); CALCIUM 7.9 mg/dL (8.4-10.2); CARBON DIOXIDE 19 mmol/L (22-29); CHLORIDE 107 mmol/L (98-107); CREATININE, SERUM 0.58 mg/dL (0.57-1.11); EST GLOMERULAR FILTRATION RATE > 60 ML/MIN (60-); GLUCOSE 101 mg/dL (74-118); POTASSIUM 3.9 mmol/L (3.5-5.1); SODIUM 134 mmol/L (136-145)
[2018-10-06 08:59] LABS: INFLUENZAE A&B ANTIGEN (RAPID) NEGATIVE (NEGATIVE)
[2018-10-06 09:03] LABS: STREPTOCOCCUS GRP A ANTIGEN NEGATIVE (NEGATIVE)
[2018-10-06 09:10] LABS: PLATELET COUNT 16 x10e3/uL (140-360)
[2018-10-06] MEDS ORDERED: ACETAMINOPHEN 1000 MG/100 ML IV ONE (09:30)
[2018-10-06 09:33] LABS: CLARITY,URINE HAZY (CLEAR); COLOR,URINE ORANGE (YELLOW); LEUKOCYTE ESTERASE ,URINE NEGATIVE (NEGATIVE); NITRITE,URINE POSITIVE (NEGATIVE)
[2018-10-06 09:34] LABS: BILIRUBIN,URINE 2+ (NEGATIVE); KETONES,URINE 1+ (NEGATIVE); PROTEIN,URINE DIPSTICK TRACE (NEGATIVE); URINE UROBILINOGEN 4 mg/dL (0.2 - 1)
[2018-10-06 09:47] LABS: BACTERIA,URINE MODERATE /HPF; EPITHELIAL CELLS,URINE RARE /LPF; WBC,URINE (MAN) 0-5 /HPF (0-5)
[2018-10-06] MEDS ORDERED: CEFTRIAXONE SOD 1 GM/NS 50 ML 50 ML IV ONE (10:15)
[2018-10-06] MEDS ORDERED: SODIUM CHLORIDE 0.9% 1000ML 1,000 ML IV SCH (10:33)
--- NOTE | 2018-10-06 10:41 | Diagnostic Imaging Report ---
CT BRAIN WO HISTORY: Fever, headache; cirrhosis COMPARISON: CT of the abdomen and pelvis 02/19/2018 TECHNIQUE: Noncontrast axial scans were obtained from skull base to the vertex. Coronal and sagittal reconstructions obtained from the axial data. One or more of the following dose reduction techniques were used: Automated exposure control, adjustment of the mA and/or kV according to patient size, and/or utilization of iterative reconstruction technique. DISCUSSION: Scalp/Skull: Unremarkable. Brain sulci: Overall appropriate for patient's age. Ventricles: Normal in size and configuration. No hydrocephalus. Extra-axial spaces: No masses or fluid collections. Parenchyma: Mild, ill-defined hypodensities are seen in the bifrontal deep white matter and left subinsular region. There is no significant mass effect. Subtle, focal juxtacortical hypodensity along the medial left cerebellar hemisphere (adjacent to the vermis) may be due to age indeterminate ischemia. There is no significant mass effect. Mild bilateral globus pallidus calcification is likely due to age-related mineralization. Otherwise, no hemorrhage, or large vascular territory acute infarct. Dural sinuses: No abnormal densities. Sellar/Suprasellar region: Intact. Skull base: Intact. Incidental findings: Mild left ethmoid air cell mucosal thickening is nonspecific. IMPRESSION: 1. Nonspecific mild ill-defined hypodensities in the bifrontal deep white matter and left subinsular region may be due to chronic microvascular ischemic change, gliosis, and/or vasogenic edema. 2. Subtle, focal juxtacortical hypodensity along the medial left cerebellar hemisphere may be due to age indeterminate ischemia. 3. Otherwise, no acute intracranial abnormalities. Further evaluation with brain MRI (without and with contrast) is recommended if clinically feasible. Signed by: Dr. Gilberto Cosme M.D. on 10/06/2018 10:38 AM
[2018-10-06] MEDS ORDERED: SODIUM CHLORIDE FLUSH 10 ML SYR INJ PRN (10:45)
[2018-10-06] MEDS ORDERED: PROCHLORPERAZINE MALEATE TAB 10 MG TAB PO PRN (10:45)
[2018-10-06 12:17] LABS: INR 1.81; PROTHROMBIN TIME 22.4 seconds (11.9-14.5)
[2018-10-06 12:18] LABS: PARTIAL THROMBOPLASTIN TIME 43.7 seconds (23.8-35.5)
--- OUTSIDE RECORDS SUMMARY | 2018-10-06 12:22 | XMS REPORT | Clinical Summary ---
Author Author [facility] Organization [facility] Address Unknown Phone Unavailable Care Team Providers Care Nursing Unit Coordinator Name Role Phone Asked, No Pcp PCP [...] [facility] TXP xxxxxxxxx Transplant CARE [facility] [address] [facility] xxxxxxxxx HMO/PPO THCARE CHOICE/CHO ICE + UHC MEDICARE UNITED xxxxxxxxx HMO HEALTHCARE MEDICARE Advance Directives Patient has advance care planning documents on file. For more information, luciano hallman contact: Edis Marc [address] [place] [address]
--- OUTSIDE RECORDS SUMMARY | 2018-10-06 12:23 | XMS REPORT | Clinical Summary ---
Author Author [facility] Address Unknown Phone Unavailable Care Team Providers Care Clinical Data Associate Name Role Phone Aren Martel PCP Allergies [...] We will also need clearance from her DRY HOUSE OPERATOR oncologist that she does not have any [...] abdominal pain. She met with a local manager community outreach who diagnosed her with an "ovarian tumor" and has referred her to a gynecology oncologist. I have no seen documentation from her DRY HOUSE OPERATOR oncologist but she states that the "ovarian [...] transplant status 10/02/2018 Orders Only Transplant HepatMarleny Bradley RN [...] 03[facility]08 [facility] Itinerary mailed. ) 02/17/2018 Telephone Transplant HepatMarleny Bradley RN Awaiting organ transplant status (Primary Dx) 02/17/2018 Orders Only Transplant Hepatology Aissatou Mcguire MD Jalal, Tim Orosco MD Ascites of liver; Awaiting organ transplant status; Portal hypertension (HCC); Thrombocytopenia (HCC) 12/13/2017 Follow-Up Transplant HepatMonika Mg Appointment (Pt called and said she is currently admitted at [facility] but may be getting released later [...] [facility]. Pt said patient resource coordinator wanted her to go to ER 11/17 [...] Taken Vital Sign Reading 07/25/2018 10:02 AM METAL CANS SUPERVISOR Blood Pressure 124/77 07/25/2018 10:02 AM METAL CANS SUPERVISOR Pulse 73 07/25/2018 10:02 AM METAL CANS SUPERVISOR Temperature 36.5 C (97.7 F) 07/25/2018 10:02 AM METAL CANS SUPERVISOR Respiratory Rate 16 07/25/2018 10:02 AM METAL CANS SUPERVISOR Oxygen Saturation 100% - Inhaled Oxygen - Concentration 07/25/2018 10:02 AM METAL CANS SUPERVISOR Weight 90.5 kg (199 lb 9.6 oz) 07/25/2018 10:02 AM METAL CANS SUPERVISOR Height 162.6 cm (5' 4") 07/25/2018 10:02 AM METAL CANS SUPERVISOR Body Mass Index 34.26 Plan of Treatment Care Team Description Date Type Specialty 10/24/2018 Follow-Up Transplant Hepatology Jeff Bradford MD [address] [address] 11/30/2018 Appointment Radiology Health Maintenance Due Date Last Done Comments INFLUENZA VACCINE 05/22/2018 Implants Device Identifier Shelf Expiration Date Model / Serial / Lot Implanted Type Area Manufactur er 02/18/2017 [id number] / / [id number] Device Clsr Angio-Seal Vip 6fr Cardi[employer]asc [facility] [id number] - [id number] ular MED:CARDIA Implanted: Qty: 1 on 04/27/2016 by Greta Phan MD Procedures Comments Procedure Name Priority Date/Time Associated Diagnosis BILIRUBIN, DIRECT Routine 10/03/2018 Awaiting organ transplant 11:09 AM METAL CANS SUPERVISOR status PROTHROMBIN TIME/INR Routine 10/03/2018 Awaiting organ transplant 11:09 AM METAL CANS SUPERVISOR status CBC W/PLT COUNT & AUTO Routine 10/03/2018 Awaiting organ transplant DIFFERENTIAL 11:09 AM METAL CANS SUPERVISOR status COMPREHENSIVE METABOLIC Routine 10/03/2018 Awaiting organ transplant PANEL 11:09 AM METAL CANS SUPERVISOR status (CELLAVISION MANUAL DIFF) Routine 09/05/2018 Awaiting organ transplant 1:31 PM METAL CANS SUPERVISOR status CBC W/PLT COUNT & AUTO Routine 09/05/2018 Awaiting organ transplant DIFFERENTIAL 1:31 PM METAL CANS SUPERVISOR status PROTHROMBIN TIME/INR Routine 09/05/2018 Awaiting organ transplant 1:31 PM METAL CANS SUPERVISOR status COMPREHENSIVE METABOLIC Routine 09/05/2018 Awaiting organ transplant PANEL 1:31 PM METAL CANS SUPERVISOR status CBC W/PLT COUNT & AUTO Routine 09/05/2018 Awaiting organ transplant DIFFERENTIAL 1:31 PM METAL CANS SUPERVISOR status BILIRUBIN, DIRECT Routine 09/05/2018 Awaiting organ transplant 1:31 PM METAL CANS SUPERVISOR status MR ABDOMEN WITH/WITHOUT Routine 09/05/2018 Awaiting organ transplant IV CONTRAST 1:21 PM METAL CANS SUPERVISOR status Cirrhosis of liver without ascites, unspecified hepatic cirrhosis type (HCC) POCT-CREATININE Routine 09/05/2018 12:48 PM METAL CANS SUPERVISOR XR DXA BONE DENSITY STUDY Routine 07/25/2018 Screening for 12:59 PM METAL CANS SUPERVISOR endocrine/metabolic/immun ity disorders CBC W/PLT COUNT & AUTO Routine 07/25/2018 Awaiting organ transplant DIFFERENTIAL 12:20 PM METAL CANS SUPERVISOR status CBC W/PLT COUNT & AUTO Routine 07/25/2018 Awaiting organ transplant DIFFERENTIAL 12:20 PM METAL CANS SUPERVISOR status PROTHROMBIN TIME/INR Routine 07/25/2018 Awaiting organ transplant 12:19 PM METAL CANS SUPERVISOR status COMPREHENSIVE METABOLIC Routine 07/25/2018 Awaiting organ transplant PANEL 12:19 PM METAL CANS SUPERVISOR status BILIRUBIN, DIRECT Routine 07/25/2018 Awaiting organ transplant 12:19 PM METAL CANS SUPERVISOR status ALPHA FETOPROTEIN (AFP), Routine 07/25/2018 Awaiting organ transplant TUMOR MARKER 12:19 PM METAL CANS SUPERVISOR status Cancer screening ED ECG INTERPRETATION Routine [...] Awaiting organ transplant IV CONTRAST 11:45 AM METAL CANS SUPERVISOR status CBC W/PLT COUNT & AUTO Routine 10/07/2017 Awaiting organ transplant DIFFERENTIAL 9:19 AM METAL CANS SUPERVISOR status CBC W/PLT COUNT & AUTO Routine 10/07/2017 Awaiting organ transplant DIFFERENTIAL 9:19 AM METAL CANS SUPERVISOR status BILIRUBIN, DIRECT Routine 10/07/2017 Awaiting organ transplant 9:19 AM METAL CANS SUPERVISOR status PROTHROMBIN TIME/INR Routine 10/07/2017 Awaiting organ transplant 9:19 AM METAL CANS SUPERVISOR status COMPREHENSIVE METABOLIC Routine 10/07/2017 Awaiting organ transplant PANEL 9:19 AM METAL CANS SUPERVISOR status after 10/05/2017 Results * Prothrombin time/INR (10/03/2018 11:09 AM METAL CANS SUPERVISOR) Only the most recent of 7 results within the time period is included. INR 1.5 (H) [facility] Comment: Reference Range 0.9-1.1 Moderate-intensity Warfarin Therapy 2.0-3.0 Higher-intensity Warfarin Therapy 3.0-4.0 PT 14.9 (H) 9.0 - 11.5 sec [facility] Comment: For more information on this test, go to: http://education.[employer].com/faq/BTF055 Specimen Blood Narrative Performed At FASTING:YES [facility] FASTING: YES Resulting Agency Comment Performing Organization Information: Site ID: [id number] Name: [facility] Address: [address] [place] [id number] Director: Li Alvarenga Performing Organization Address City/State/Zipcode Phone Number [facility] [address] [place] [address] [facility] * CBC with platelet count + automated diff (10/03/2018 11:09 AM METAL CANS SUPERVISOR) Only the most recent of 3 results [...] Performing Organization Information: Site ID: [id number] Name: [facility] Address: [address] [place] [phone] Director: Li Alvarenga Performing Organization Address City/State/Zipcode Phone Number [facility] [address] [place] [address] [facility] * Bilirubin, direct (10/03/2018 11:09 AM METAL CANS SUPERVISOR) Only the most recent of 7 results within the time period is included. Bilirubin, Total 6.8 (H) 0.2 - 1.2 mg/dL [facility] Bilirubin, Direct 2.0 (H) < OR=0.2 mg/dL [facility] Bilirubin, Indirect 4.8 (H) 0.2 - 1.2 mg/dL (calc) [facility] Specimen Blood Narrative Performed At FASTING:YES [facility] FASTING: YES Resulting Agency Comment Performing Organization Information: Site ID: [id number] Name: [facility] Address: [address] [place] [phone] Director: Li Alvarenga Performing Organization Address City/State/Zipcode Phone Number [facility] [address] [place] [address] [facility] * Comprehensive metabolic panel (10/03/2018 11:09 AM METAL CANS SUPERVISOR) Only the most recent of 7 results within the time period is included. Glucose 95 65 - 99 mg/dL [facility] Comment: Fasting reference interval BUN 11 7 - 25 mg/dL [facility] Creatinine 0.46 (L) 0.50 - 1.05 mg/dL [facility] Comment: For patients >49 years of age, the reference limit for Creatinine is approximately 13% higher for people identified as -Barbadian. eGFR If NonAfricn Am 115 > OR=60 [...] Performing Organization Information: Site ID: [id number] Name: [facility] Address: [address] [place] [phone] Director: Li Alvarenga Performing Organization Address City/State/Zipcode Phone Number [facility] [address] [place] [address] [facility] * Manual Differential (09/05/2018 1:31 PM METAL CANS SUPERVISOR) % Neutros 79 % [facility] % Lymphs 12 % [facility] % Monos 5 % [facility] % Eos 2 % [facility] % Baso 2 % [facility] # Neutros 2.69 1.56 - 6.13 K/ul [facility] # Lymphs 0.41 (L) 1.18 - 3.74 K/ul [facility] # Monos 0.17 (L) 0.24 - 0.36 K/uL [facility] # Eos 0.07 0.04 - 0.36 K/uL [facility] # Baso 0.07 0.01 - 0.08 K/uL [facility] Total Counted 100 [facility] WBC Morphology Normal [facility] Platelet Morphology Normal [facility] Polychromasia 1+ few [facility] Anisocytosis 1+ few [facility] Poikilocytes 1+ few [facility] Artifact Present [facility] Platelet Conc Decreased [facility] Specimen Blood Narrative Performed At Received comment: [facility] User comments: [facility] Slide comments: Performing Organization Address City/State/Zipcode Phone Number [facility] [address] [place] [address] MEDICAL CENTER * CBC with platelet count + automated diff (09/05/2018 1:31 PM METAL CANS SUPERVISOR) Only the most recent of 5 results within the time period is included. WBC 3.4 (L) 3.5 - 10.5 K/L [facility] RBC 2.75 (L) 3.93 - 5.22 M/L [facility] Hemoglobin 9.9 (L) 11.2 - 15.7 GM/DL [facility] Hematocrit 30.6 (L) 34.1 - 44.9 % [facility] MCV 111.3 (H) 79.4 - 94.8 fL [facility] MCH 36.0 (H) 25.6 - 32.2 pg [facility] MCHC 32.4 32.2 - 35.5 GM/DL [facility] RDW 16.6 (H) 11.7 - 14.4 % [facility] Platelets 30 (L) 150 - 450 K/CU MM [facility] MPV 12.7 (H) 9.4 - 12.3 fL [facility] nRBC 0 0 - 0 /100 WBC [facility] Specimen Blood Performing Organization Address City/State/Zipcode Phone Number [facility] [address] [place] [address] MEDICAL CENTER * MRI abdomen with and without contrast (09/05/2018 1:21 PM METAL CANS SUPERVISOR) Only the most recent of 3 results within the time period is included. Narrative Performed At FINAL REPORT [facility] MRI of the abdomen. CLINICAL [...] MD Report Verified Date/Time:09/05/2018 15:35:55 Reading Location: [address] Radiology Reading Room Procedure Note Interface, External Ris In - 09/05/2018 3:38 PM METAL CANS SUPERVISOR FINAL REPORT MRI of the abdomen. CLINICAL [...] Report Verified Date/Time: 09/05/2018 15:35:55 Reading Location: [address] Radiology Reading Room Performing Organization Address City/[facility] Phone Number [facility] * POC-Creatinine (09/05/2018 12:48 PM METAL CANS SUPERVISOR) Only the most recent of 2 results within the time period is included. POC-Creatinine 0.4 (L)Comment: TESTED AT 0.6 - 1.3 mg/dL [facility] [address] [facility] [id number] POC-EGFR 168 mL/min/1.73M2 [facility] Specimen Blood Performing Organization Address [facility] Phone Number [facility] [address] [place], [place] [phone] [facility] * XR dxa bone density study (07/25/2018 12:59 PM METAL CANS SUPERVISOR) Narrative Performed At FINAL REPORT [facility] Bone mineral density study 07/25/2018 at 1259. CLINICAL INDICATION: Osteoporosis. COMPARISON: None available FINDINGS: Evaluation of the left and right femoral necks and lumbar spine was performed utilizing a [employer] Advance bone densitometer. The left femoral neck [...] MD Report Verified Date/Time:07/25/2018 15:48:51 Reading Location: [facility] Radiology Reading Room Procedure Note Interface, External Ris In - 07/25/2018 3:51 PM METAL CANS SUPERVISOR FINAL REPORT Bone mineral density study 07/25/2018 at 1259. CLINICAL INDICATION: Osteoporosis. COMPARISON: None available FINDINGS: Evaluation of the left and right femoral necks and lumbar spine was performed utilizing a [employer] bone densitometer. The left femoral neck bone [...] Report Verified Date/Time: 07/25/2018 15:48:51 Reading Location: [facility] Radiology Reading Room Performing Organization Address City/[facility] Phone Number [facility] * Alpha fetoprotein (AFP), tumor marker (07/25/2018 12:19 PM METAL CANS SUPERVISOR) Only the most recent of 2 results within the time period is included. Alpha-Fetoprotein 2.2 <10.0 ng/mL [facility] Specimen Blood Performing Organization Address City/[facility]/Zipcode Phone Number [facility] [address] [place] [address] [facility] * ED ECG Interpretation (05/23/2018 1:18 PM [...] PM CDT) Narrative Performed At FINAL REPORT [facility] Chest one view INDICATION: Shortness of breath COMPARISON: 11/05/2016 IMPRESSION: Previously seen right upper lobe nodularity is not apparent on this study. There are coarsened interstitial markings. No focal consolidation, edema, pleural effusion, or pneumothorax is seen. The cardiomediastinal silhouette is unremarkable. The bones appear intact. Signed: Eric Velazquez MD Report Verified Date/Time:05/23/2018 12:16:57 Reading Location: [facility] Radiology Reading Room Procedure Note Interface, [...] Report Verified Date/Time: 05/23/2018 12:16:57 Reading Location: [facility] Radiology Reading Room Performing Organization Address City/State/Zipcode Phone Number [facility] * Troponin I (05/23/2018 11:17 AM CDT) Troponin I <0.01 0.00 - 0.03 ng/mL [facility] Specimen Blood - Arm, Right Narrative Performed At Troponin I (TnI) levels must be interpreted in the context of the presenting [facility] symptoms and the clinical findings. Elevated TnI levels indicate myocardial [facility] damage, but are not specific for ischemic heart disease. Elevated TnI levels are seen in patients with other cardiac conditions (including myocarditis and congestive heart failure), and slight TnI elevations occur in patients with other conditions, including sepsis, renal failure, acidosis, acute neurological disease, and persistent tachyarrhythmia. Performing Organization Address City/[facility] Cent[facility]ode Phone Number [address] * Lipase (05/23/2018 11:17 AM CDT) Lipase 40 8 - 78 U/L [facility] Specimen Blood - Arm, Right Narrative Performed At Specimen moderately icteric [facility] Performing Organization Address [facility] Cent[facility]ode Phone Number [address] * Creatine Kinase (CK), Total and MB (05/23/2018 11:17 AM CDT) Total CK 115 29 - 200 U/L [facility] CK-MB 1.5 0.0 - 6.6 ng/mL [facility] MB Relative Index 1.3 % [facility] Specimen Blood - Arm, Right Narrative Performed At CK-MB Reference Range: [facility] <6.7Normal [facility] 6.7-10.0Borderline >10.0 Abnormal Performing Organization Address [facility] [place] [address] [phone] * Hepatic function panel (05/23/2018 11:17 AM CDT) Protein, Total 7.6 6.0 - 8.3 gm/dL [facility] Albumin 2.8 (L) 3.5 - 5.0 g/dL [facility] Total Bilirubin 7.0 (H) 0.2 - 1.2 mg/dL [facility] Bilirubin, Direct 2.0 (H) 0.1 - 0.5 mg/dL [facility] Alkaline Phosphatase 172 (H) 40 - 150 U/L [facility] AST 56 (H) 5 - 34 U/L [facility] ALT 28 6 - 55 U/L [facility] Specimen Blood - Arm, Right Narrative Performed At Specimen moderately icteric [facility] Performing Organization Address City/[facility] Centercode Phone Number [facility] [address] [place] [address] [facility] * Basic Metabolic Panel (05/23/2018 11:17 AM CDT) Sodium 136 136 - 145 meq/L [facility] Potassium 4.1 3.5 - 5.1 meq/L [facility] Chloride 106 98 - 107 meq/L [facility] CO2 24 22 - 29 meq/L [facility] BUN 13 7 - 21 mg/dL [facility] Creatinine 0.65 0.57 - 1.25 mg/dL [facility] Glucose 109 (H) 70 - 105 mg/dL [facility] Calcium 8.4 8.4 - 10.2 mg/dL [facility] EGFR 96Comment: ESTIMATED GFR IS mL/min/1.73 sq m [facility] NOT ACCURATE CREATININE [facility] CLEARANCE IN PREDICTING GLOMERULAR FILTRATION RATE. ESTIMATED GFR IS NOT APPLICABLE FOR DIALYSIS PATIENTS. Specimen Blood - Arm, Right Narrative Performed At Specimen moderately icteric [facility] Performing Organization Address City/State/[facility] Centercode Phone Number [facility] [address] [place] [address] [facility] * ECG 12 lead (05/23/2018 10:42 AM CDT) Narrative Performed At Ventricular Rate 74 BPM GE MUSE Atrial Rate 74 BPM P-R Interval 154 ms QRS Duration 92 ms Q-T Interval 424 ms QTC Calculation(Bazett) 470 ms P [place] 45 degrees R [place] -20 degrees T [place] 68 degrees Normal sinus rhythm Possible Left atrial enlargement Left ventricular hypertrophy Abnormal ECG Confirmed by MD Zabala Mahboob ([id number]) on 05/23/2018 10:07:49 PM Procedure Note Interface, External Ris In - 05/23/2018 10:07 PM CDT Ventricular Rate 74 BPM Atrial Rate 74 BPM P-R Interval 154 ms QRS Duration 92 ms Q-T Interval 424 ms QTC Calculation(Bazett) 470 ms P [place] 45 degrees R [place] -20 degrees T [place] 68 degrees Normal sinus rhythm Possible Left atrial enlargement Left ventricular hypertrophy Abnormal ECG Confirmed by MD Zabala Mahboob ([id number]) on 05/23/2018 10:07:49 PM Performing Organization Address City/State/Zipcode Phone Number [facility]ARLOS NARAYANAN after 10/05/2017 Insurance Payer Benefit Subscriber ID Type Phone Address Plan / Group BLUE CROSS/BLUE SHIELD BCBS OS xxxxxxxxxxxxxxx PPO [phone] [address] POS/PPO/[place] [address] O CARE IMPROVEMENT MEDICARE CARE xxxxxxxxx MGD CARE IMPROVEMEN T PLUS Advance Directives For more information, please contact: [facility] [address] [place] [address] Date Inactivated Comments Code Status Date Activated 04/27/2016 4:08 PM Full Code 04/27/2016 6:18 AM This code status was determined by: Patient
[2018-10-06] MEDS ORDERED: TRAMADOL HCL 50 MG TAB PO PRN (14:45)
[2018-10-06] MEDS ORDERED: DEXTROSE 50% SYRINGE 50 ML IV PRN (14:45)
[2018-10-06] MEDS ORDERED: ACETAMINOPHEN 325 MG TAB PO PRN (14:45)
[2018-10-06 15:20] VITALS: BP 99/52
--- NOTE | 2018-10-06 15:30 | History and Physical ---
PRESENTING COMPLAINTS: Fever with intense headache, nausea and vomiting for 3 days, got worse today. HISTORY OF PRESENT ILLNESS: This 53-year-old female was admitted from the ER. The patient was brought to the ER by her family for high spiking fever above 101 at home for 3 days, got worse today. The patient tells that her fever was associated with intense headache and a mild nonproductive cough. She also had vomited once. She had abdominal distention from ascites from cirrhosis. She denied any abdominal pain. She also denies any passage of blood with vomitus or stool. The patient also denies any passage of black stool. The patient told that she had a flu shot this season. She also denied any chest pain, shortness of breath, palpitations or diarrhea. The patient also denied any travel history or sick contact. REVIEW OF SYSTEMS CONSTITUTIONAL: High spiking fever above 101 at home for 3 days with chills and rigor and generalized weakness. EYES AND ENT: No visual disturbance. No nasal congestion. No earache. No sore throat. CARDIOVASCULAR: No chest pain, shortness of breath, or palpitations. PULMONARY: Nonproductive cough. No shortness of breath. No hemoptysis. GI: No abdominal pain. The patient had nausea with vomiting at home, 2 episodes. No passage of blood with vomitus. No diarrhea. No passage of bloody stool or black stool. : No dysuria. No hematuria. MUSCULOSKELETAL, SKIN, LYMPHATIC: The patient has generalized body aches. No joint swelling. No joint pain. No skin rash. No swollen glands. NEUROLOGIC: No loss of consciousness or seizure. The patient has an intense headache, bilateral frontal as per her statement along with fever. HISTORY OF PAST MEDICAL ILLNESS: Cirrhosis of the liver, ascites, status post paracentesis in the past. Chronic thrombocytopenia, diabetes mellitus type 2, hypertension. HISTORY OF PAST SURGERY: Cholecystectomy, hysterectomy. ALLERGIES: IODINE CAUSES HIVES. HOME MEDICATIONS: Refer to the med reconciliation sheet. SOCIAL HISTORY: The patient lives at home with her family. Denies smoking, drinking or substance abuse history. FAMILY HISTORY: Positive for diabetes mellitus. PHYSICAL EXAMINATION VITALS: At presentation, BP 142/73, pulse 93, temperature 101.3, respirations 16, SpO2 97% on room air. GENERAL: Alert, in moderate distress due to intense headache, fever, and body ache. HEENT: Pupils are equally reacting. Bilateral scleral icterus is present. No pallor. Oral mucosa is dry. NECK: No JVD. No carotid bruit. No lymphadenopathy. No thyromegaly. HEART: S1 and S2 regular. Systolic murmur present over the left parasternal area without radiation, 2/6 in density. LUNGS: Air entry equal on both sides. A few fine crackles, no rhonchi. ABDOMEN: Soft, distended. No tenderness. No palpable mass. Fluid is present. EXTREMITIES: Trace ankle edema is present bilaterally. No cyanosis. No clubbing. NEUROLOGIC: Motor grossly equal on both sides. No hepatic asterixis is present. LAB DATA: CBC: WBC 6.22, hemoglobin 9.3, hematocrit 28.1, platelets 16, MCV 106, RDW 15.9, neutrophils 84, lymphocytes 3.9. PT 22.4, INR 1.81, PTT 43.7. Chemistry panel: Sodium 134, potassium 3.9, chloride 107, CO2 19, anion gap 8, BUN 11, creatinine 0.58, glucose 101. Lactic acid 16.7, calcium 7.9, total bilirubin 11.1, AST 65, ALT 34, alk phos 110, total protein 6.1, albumin 2.5, globulin 3.6. Urinalysis: Protein plus, glucose negative, ketones 1+, nitrate positive, leukocyte esterase negative, WBCs 0-5, RBCs 11-20, bacteria moderate. Influenza screening negative. Streptococcus screening negative. MICROBIOLOGY DATA: Blood culture in progress. RADIOLOGICAL DATA: CT head without contrast: Nonspecific, mildly ill-defined hypodensities in the bilateral deep white matter and left subinsular region may be related to chronic microvascular ischemia. Subtle juxtacortical hypodensity along the medial left cerebral hemisphere may be due to indeterminate ischemia. Otherwise, no acute intracranial abnormality. Liver ultrasound pending. X-ray of chest pending. ASSESSMENT AND PLAN 1. Fever with headache in a patient with established cirrhosis. Need to rule out sepsis, but her lactic acid level is normal. Continue the patient on empiric IV antibiotic. Follow the blood culture report. Will follow with infectious disease specialist. Consultation was requested from ER. 2. Urinary tract infection. Follow the urine culture report. Continue IV antibiotic. 3. Intense headache with abnormal CT head. Will request a neurology consultation and MRI of the brain if possible. 4. Intense headache. Keep patient on pain medication. 5. Cirrhosis of the liver with hyperbilirubinemia. Will request her regular sail lay out worker, Dr. Hoffman, for consultation. 6. Critical thrombocytopenia. Patient has no active bleeding. Hematology consult is done by Dr. Pena. Will follow his recommendations. 7. Microcytic anemia, likely due to cirrhosis. Will monitor. Will check stool for occult blood. 8. Gastrointestinal prophylaxis. Keep the patient on PPI IV for now. 9. Diabetes mellitus by history. Keep the patient on sliding-scale insulin. Her glucose level was 101 at presentation. 10. Deep vein thrombosis prophylaxis. Will hold anticoagulation in view of the patient's critical thrombocytopenia. 11. Ascites. Will follow gastroenterology's recommendation for need of paracentesis. 12. Directive: The patient is full code. 13. The prognosis is guarded in view of the patient's multiple comorbidities. Discharge plan will depend upon the patient's response to treatment and specialists' recommendations. Job#: [id number]
[2018-10-06 15:42] VITALS: BP 99/52
[2018-10-06] MEDS: INSULIN LISPRO 100 UNIT/1 ML 3ML VIAL SQ SCH ×2 (16:20→20:58)
--- NOTE | 2018-10-06 16:23 | Diagnostic Imaging Report ---
EXAMINATION: Right upper quadrant ultrasound CLINICAL INDICATION: Cirrhosis COMPARISON: February 19, 2018 DISCUSSION: Transverse and longitudinal images of the right upper quadrant were obtained. The liver is normal in size measuring 11.4centimeters in length in the right midclavicular line and shows heterogeneous coarse echogenicity with nodular contour. No focal masses are seen in the liver. There is no intrahepatic biliary dilatation. The common bile duct is normal in caliber and measures 0.2 cm. The main portal vein is normal in caliber and measures 1 cm with normal hepatopetal flow. Cholecystectomy The visualized portions of the pancreatic body are unremarkable. The right kidney measures 10.4 centimeters in length. There is normal renal cortical echogenicity and no hydronephrosis, mass or shadowing calculi. The visualized portions of the great vessels are poorly visualized. Ascites IMPRESSION: Cirrhotic liver morphology with ascites. Cystectomy. Signed by: Dr. Akbar Mayfield M.D. on 10/06/2018 4:20 PM
--- NOTE | 2018-10-06 16:55 | Diagnostic Imaging Report ---
Exam:Limited abdominal ultrasound History:Ascites Comparison: None available Findings:Ascites present in all 4 quadrants, most prominent in the right upper quadrant. Cirrhotic liver morphology with splenomegaly. Impression: Abdominal ascites most prominent in the right upper quadrant Signed by: Dr. Akbar Mayfield M.D. on 10/06/2018 4:52 PM
[2018-10-06] MEDS ORDERED: LACTULOSE SYRUP 20 GM/30 ML UDC PO SCH (17:00)
[2018-10-06] MEDS: D5NS/KCL 20MEQ 1,000 ML IV SCH (17:06)
[2018-10-06] MEDS: PIPER-TAZ 3.375 GM 50 ML IV SCH (17:06)
--- NOTE | 2018-10-06 17:13 | Consultation ---
DATE OF CONSULTATION: October 06, 2018 ATTENDING PHYSICIAN: Dr. Aren Martel. REASON FOR CONSULTATION: Fever and sepsis. Thank you, Dr. Martel, for asking me to see this patient. HISTORY OF PRESENT ILLNESS: The patient is a 53-year-old woman referred for fever and sepsis. She was admitted through the emergency department with urinary tract infection and severe thrombocytopenia. She presented to the emergency department with fever, chills, and headache associated with epigastric pain and nausea. She denies dysuria and has not noticed a skin rash. Her had similar symptoms, but her teenager son has no symptoms. The patient does not recall contact with child with rash and she denies recent travel. She owns 3 dogs which are healthy and fully vaccinated. The patient is currently enrolled in transplant program. Brain CT scan done in the emergency department showed no acute findings. PAST MEDICAL HISTORY: Diabetes mellitus type 2, decompensated primary biliary cirrhosis with portal hypertension, recurrent ascites, and thrombocytopenia. PAST SURGICAL HISTORY: Cholecystectomy and hysterectomy. ALLERGIES: IODINE. MEDICATIONS: The current antibiotic is Zosyn 3.375 g IV piggyback q.6 hours. She received ceftriaxone earlier. IMMUNIZATIONS: She received influenza vaccine during the last hospitalization in May. FAMILY HISTORY: Significant for diabetes mellitus. SOCIAL HISTORY: No alcohol or tobacco use. REVIEW OF SYSTEMS: As per history of present illness. She still has intermittent fever, headache, nausea, and epigastric pain. PHYSICAL EXAMINATION VITALS: T-max 101.3, pulse rate 76, respiratory rate 17, blood pressure 110/64, weight 195 pounds. GENERAL: Acutely ill. HEENT: Normocephalic. There is marked yellowness of the conjunctivae. There is no ear or nasal discharge. Moist oral mucosa. No pharyngeal erythema or exudate. NECK: Supple. No meningismus. LUNGS: Good air entry bilaterally. HEART: Normal S1 and S2. Regular. ABDOMEN: Soft with right upper quadrant, epigastric and left upper quadrant tenderness. No rebound tenderness. EXTREMITIES: There is trace edema. Dorsalis pedis and posterior tibial pulses are palpable in both feet. SKIN: There is jaundice but no acute erythema. PROJECT ADMINISTRATOR: Awake, alert and oriented to person, place and time. There is normal sensation to monofilament test of the feet. Nonfocal. LABORATORY AND DIAGNOSTICS: WBC 6,220, hemoglobin 9.3, platelets 16,000, neutrophils 84.6, lymphocytes 3.9, monocytes 9.8, eosinophils 0.8, basophils 0.3. BUN 11, creatinine 0.58, blood glucose 101, AST 65, ALT 34, alkaline phosphatase 110, total bilirubin 11.1. Urinalysis showed urine WBCs 0 to 5, RBCs 11 to 20. PTT 43.7, PT 22.4, INR 1.8. Influenza antigen test is negative. Group A streptococcus antigen test is also negative. Blood culture is pending. Urine culture is pending. Throat culture is also pending. IMPRESSIONS 1. Sepsis, present on admission. The source is unclear but may include spontaneous bacterial peritonitis and pancreatitis. I doubt urinary tract infection. Patient is asymptomatic and there is no pyuria. 2. Decompensated primary biliary cirrhosis. 3. Severe thrombocytopenia. 4. Diabetes mellitus, type 2, controlled. PLANS 1. Await ultrasound report. If ascites is demonstrated, patient will need diagnostic paracentesis with peritoneal fluid culture to exclude the spontaneous bacterial peritonitis. 2. Also, await blood culture results. Check amylase and lipase. Reduce Zosyn to 3.375 g IV piggyback q.8 hours infused over 4 hours. 3. Hematology input noted. Job#: [id number] FLOWER
[2018-10-06] MEDS ORDERED: FUROSEMIDE40 MG PO (18:16)
[2018-10-06] MEDS ORDERED: RIFAMPIN300 MG PO (18:16)
--- NOTE | 2018-10-06 18:36 | Diagnostic Imaging Report ---
EXAMINATION: PA and lateral views of the chest. COMPARISON: None CLINICAL HISTORY: Cough, shortness of breath DISCUSSION: Lines/tubes: None. Lungs: Scattered calcified granuloma. No consolidative pneumonia. No edema. Pleura: There is no pleural effusion or pneumothorax. Heart and mediastinum: The cardiomediastinal silhouette is normal. Bones and soft tissues: No acute bony abnormalities. IMPRESSION: No acute cardiopulmonary abnormalities. Signed by: Dr. Akbar Mayfield M.D. on 10/06/2018 6:33 PM
--- NOTE | 2018-10-06 19:42 | Consultation ---
DICTATING PHYSICIAN NOT FOUND, PLEASE CHECK DATE OF CONSULTATION: CONSULTING PHYSICIAN: Dr. Kapoor. REASON FOR CONSULTATION: Cirrhosis. CHIEF COMPLAINT: Fever, headache, nausea and vomiting. HISTORY OF PRESENT ILLNESS: Patient is a 53-year-old female with past medical history of [place] cirrhosis, peptic ulcer disease, diabetes mellitus, chronic thrombocytopenia who presented to the ER for evaluation of high fever above 101, which got worse over the past 3 days. She states the fever is associated with cough along with an intense headache and abdominal pain. She also reports of having nonbloody vomitus. She states of having abdominal distention from ascites and her last paracentesis she reports was in July. She is currently on liver transplant list with [facility]. She usually follows up with Dr. Hoffman and her last EGD was done with Botox in July per her daughter. She is compliant with medications reportedly and states of taking Lasix, spironolactone, Xifaxan, and lactulose at home. She denies any chest pain, shortness of breath, or diarrhea and she also denies any melena, hematemesis, or hematochezia. REVIEW OF SYSTEMS CONSTITUTIONAL: Fever, weakness, chills. HEENT: Denies any nasal congestions or earache. HEART: Denies any chest pain, shortness of breath, palpitations. PULMONARY: Reports of having cough. Denies any shortness of breath or hemoptysis. GI: Reports of having some abdominal pain, some nausea or vomiting. Denies any signs of GI bleeding. : Denies any hematuria or dysuria. MSK: States of having general body aches. Denies any joint swelling or joint pain. NEURO: Denies any loss of consciousness; however, does report of having some confusion and also headache. PAST MEDICAL HISTORY: See above. PAST SURGICAL HISTORY: Hysterectomy, cholecystectomy. ALLERGIES: IODINE CAUSES HIVES. HOME MEDICATIONS: Lasix, spironolactone, lactulose. SOCIAL HISTORY: Patient denies any history of alcohol abuse and she denies smoking. FAMILY HISTORY: Positive for diabetes. PHYSICAL EXAM VITAL SIGNS: Blood pressure is 99/52, pulse is 76, respiratory rate 17, temperature is 97.5, pulse ox is 99. GENERAL: Alert, in moderate distress. HEENT: Bilateral scleral icterus. No pallor. NECK: No JVD. Supple. Nontender. HEART: S1, S2 regular. Murmur present. LUNGS: Clear to auscultation bilaterally. ABDOMEN: Distended. No tenderness. Fluid wave ascites. EXTREMITIES: Trace ankle edema. No clubbing or cyanosis. NEUROLOGICAL: Alert and oriented x3. PSYCHOLOGICAL: Anxious. REVIEW OF LABS: White count is 6.22, hemoglobin 9.3, MCV 106, platelet count 16. Sodium 134, CO2 of 19. PT 22.4, INR 1.81. Serologies are pending, negative for flu. Abdominal ultrasound shows abdominal ascites most prominent in the right upper quadrant, cirrhotic liver with splenomegaly. ASSESSMENT 1. Nonalcoholic fatty liver disease cirrhosis with ascites. 2. Thrombocytopenia secondary to cirrhosis. 3. Fever, chills, headache, abdominal pain secondary to possible gastroenteritis versus spontaneous bacterial peritonitis. 4. Microcytic anemia, likely due to cirrhosis. PLAN: Schedule for paracentesis to rule out SBP, likely on Tuesday. We will go ahead and order for ceftriaxone for prophylaxis. We will check fecal occult blood and see if patient probably needs another EGD on Tuesday as well. Continue Lasix. Continue spironolactone. Low-sodium diet. Followup with GI outpatient and avoid NSAIDs. Hepatic panels are pending. Thank you for the consult. We will follow. Please call us if there are any questions. Job#: [id number] ANA MARÍA YANES
[2018-10-06] MEDS: LACTULOSE SYRUP 20 GM/30 ML UDC PO SCH (21:00)
[2018-10-06 21:18] VITALS: BP 111/56
[2018-10-06] MEDS ORDERED: SODIUM CHLORIDE 0.9% 250ML 250 ML ONE (23:54)
[2018-10-07] VITALS (7 sets, daily range): BP systolic 114–137; BP diastolic 56–64
[2018-10-07] MEDS: ONDANSETRON HCL INJ 2MG/ML 2ML 2 MG/ML VIAL IV PRN (00:27)
[2018-10-07] MEDS: MORPHINE SULFATE INJ 4 MG/ML INJ 1ML IV PRN ×2 (00:27→22:29)
[2018-10-07] MEDS: PIPER-TAZ 3.375 GM 50 ML IV SCH ×3 (01:00→12:37)
[2018-10-07] MEDS ORDERED: SODIUM CHLORIDE 0.9% 50ML 50 ML ONE (01:09)
[2018-10-07] MEDS: D5NS/KCL 20MEQ 1,000 ML IV SCH ×4 (05:00→22:31)
[2018-10-07 05:09] LABS: BASOPHILS % 0.2 % (0.0-1.0); EOSINOPHILS # (AUTO) 0.1 (0.0-0.4); HEMATOCRIT 25.8 % (34.2-44.1); HEMOGLOBIN 8.7 g/dL (12.0-16.0); LYMPHOCYTES # (AUTO) 0.5 (1.0-3.2); LYMPHOCYTES % 11.7 % (18.0-39.1); MEAN CORPUSCULAR HEMOGLOBIN 36.1 pg (28-32); MEAN CORPUSCULAR HGB CONC 33.7 g/dL (31-35); MEAN CORPUSCULAR VOLUME 107.1 fL (81-99); MONOCYTES # (AUTO) 0.6 (0.2-0.8); MONOCYTES % 13.9 % (4.4-11.3); NEUTROPHILS # (AUTO) 3.3 (2.1-6.9); NEUTROPHILS % 71.5 % (38.7-80.0); RED BLOOD COUNT 2.41 x10e6/uL (3.6-5.1); RED CELL DISTRIBUTION WIDTH 16.3 % (11.7-14.4)
[2018-10-07 05:13] LABS: PLATELET COUNT 26 x10e3/uL (140-360)
[2018-10-07 05:37] LABS: CHOL/HDL RATIO 3.9 (3.0-3.6)
[2018-10-07 05:38] LABS: MAGNESIUM 1.6 MG/DL (1.3-2.1)
[2018-10-07 05:57] LABS: THYROID STIMULATING HORMONE 1.96 uIU/mL (0.350-4.940)
[2018-10-07 06:00] LABS: ALANINE AMINOTRANSFERASE 36 IU/L (0-55); ALBUMIN 2.5 g/dL (3.5-5.0); ALBUMIN/GLOBULIN RATIO 0.7 (0.8-2.0); ALKALINE PHOSPHATASE 94 IU/L (40-150); BLOOD UREA NITROGEN 15 mg/dL (7-26); BUN/CREATININE RATIO 24 (6-25); CALCIUM 7.9 mg/dL (8.4-10.2); CARBON DIOXIDE 17 mmol/L (22-29); CHLORIDE 110 mmol/L (98-107); CREATININE, SERUM 0.62 mg/dL (0.57-1.11); EST GLOMERULAR FILTRATION RATE > 60 ML/MIN (60-); GLUCOSE 93 mg/dL (74-118); SODIUM 135 mmol/L (136-145)
[2018-10-07] MEDS: INSULIN LISPRO 100 UNIT/1 ML 3ML VIAL SQ SCH ×4 (07:30→21:03)
[2018-10-07] MEDS: LACTULOSE SYRUP 20 GM/30 ML UDC PO SCH ×2 (08:33→17:21)
[2018-10-07] MEDS: SPIRONOLACTONE 25 MG TAB PO SCH ×2 (08:33→17:21)
[2018-10-07] MEDS: PANTOPRAZOLE 40 MG 10ML VIAL IV SCH (08:33)
[2018-10-07] MEDS: FUROSEMIDE 40 MG TAB PO SCH (08:34)
[2018-10-07] MEDS: URSODIOL 500 MG PO SCH (09:00)
[2018-10-07] MEDS ORDERED: URSODIOL 300 MG CAP PO SCH (09:00)
[2018-10-07] MEDS: PROMETHAZINE 25MG/ NS 50ML (IV) IV SCH ×2 (14:09→19:00)
[2018-10-07] MEDS: METHYLPREDNISOLONE SOD SUCC 125 MG/2ML VIAL IV SCH ×2 (14:09→19:00)
[2018-10-07] MEDS: VALPROATE SOD INJ 250 MG in SODIUM CHLORIDE 0.9% 100 ML 100 ML IV SCH ×2 (14:11→20:49)
--- NOTE | 2018-10-07 15:56 | Diagnostic Imaging Report ---
Examination: MRI BRAIN WITHOUT CONTRAST History: 53-year-old female with new onset daily headaches; intractable headache; left-sided facial droop Comparison studies: Head CT performed October 06, 2018 Technique: Sagittal T2; axial DWI, FLAIR, GRE or SWI, T1, Coronal FLAIR. Intravenous contrast: None Findings: Scalp: No abnormal signal. No masses. Bone marrow: Normal in signal intensity. Brain volume: Adequate for age. No volume loss. Ventricles: Normal in size and configuration. No hydrocephalus. Extra-axial spaces: No abnormalities. Parenchyma: Again demonstrated are patchy and punctate areas of hypoattenuation in the periventricular and subcortical and left medial cerebellar white matter, nonspecific. No masses, hemorrhage, or acute vascular insults. Suprasellar and sellar region: No abnormalities. Craniocervical junction: No abnormalities. The foramen magnum is patent. No Chiari malformations. Vessels: Normal flow-voids in the arteries and sinuses. Additional findings:None. IMPRESSION: 1. No acute intracranial abnormality, specifically, no acute infarct. 2. Mild to moderate chronic microvascular ischemic change. Signed by: Dr. Sarah Hong M.D. on 10/07/2018 3:53 PM
--- NOTE | 2018-10-07 16:25 | Consultation ---
DATE OF CONSULTATION: October 07, 2018 NEUROLOGY CONSULT NOTE HISTORY OF PRESENT ILLNESS: Ms. Monzon is a 53-year-old right hand dominant woman with past medical history significant for gastroesophageal reflux disease, prior stroke with residual left hemiparesis, primary biliary cirrhosis with ascites, and thrombocytopenia, admitted to [facility] on October 06, 2018 with fevers, sepsis, abdominal distention secondary to ascites, and intractable headache. The neurology service is consulted for evaluation and treatment of headache. Ms. Monzon describes her headache as follows: The pain is located across the forehead and across the occiput and does not radiate. The pain is described as pressure/squeezing and is rated a 4/10 (with morphine). Associated with the headache are photophobia, phonophobia, nausea and vomiting, and dizziness which is further described as a vertiginous sensation. Ms. Monzon does not report an aura or visual disturbance associated with the headache. The above headache has been present for approximately 2 days and has not responded to treatment with [id number] medications. As stated above, morphine does lessen the severity of the headache, but does not lead to its resolution. Ms. Monzon reports experiencing one similar headache previously when she was hospitalized with pneumonia. Otherwise, the patient does not endorse frequent headaches. There is no known family history of migraine or other primary headache disorder. REVIEW OF SYSTEMS: Fever, shortness of breath, abdominal pain, nausea, vomiting, headache, dizziness, photophobia, and phonophobia. Otherwise, a 12-point review of systems is negative. PAST MEDICAL HISTORY: Gastroesophageal reflux disease, prior stroke with residual left hemiparesis, primary biliary cirrhosis with ascites, thrombocytopenia. PAST SURGICAL HISTORY: Cholecystectomy, partial hysterectomy, section, esophagogastroduodenoscopy, paracentesis. PAST HOSPITALIZATIONS: Surgeries/procedures as listed, childbirth x3. FAMILY MEDICAL HISTORY: Ms. Monzon's paternal and maternal grandparents are . Their medical histories are unknown. The patient's father is from pulmonary fibrosis. He had a history of prostate cancer as well. The patient's mother is alive and has thyroid disease. Two paternal aunts and one maternal aunt has/had breast cancer. Ms. Monzon had 3 siblings, 3 brothers and 1 sister. One brother is from a drug overdose. The remaining siblings are alive and healthy. The patient has 3 children, 1 son and 2 daughters. The son has thrombocytopenia. One daughter has cerebral palsy. The second daughter is healthy. SOCIAL HISTORY: Ms. Monzon is . She is not employed. The patient does not report current or prior tobacco, alcohol, or recreational drug use. HOME MEDICATIONS: Spironolactone 50 mg by mouth daily, Lasix 40 mg by mouth daily, lactulose 30 mg by mouth twice daily, Protonix 40 mg by mouth daily, ursodiol 500 mg by mouth daily, amoxicillin 500 mg by mouth every 6 hours, rifampin 300 mg by mouth daily. ALLERGIES: NO KNOWN DRUG ALLERGIES. NO KNOWN FOOD ALLERGIES. NO KNOWN ALLERGIES TO LATEX. THE PATIENT DOES HAVE A DOCUMENTED ALLERGY TO IODINE, WHICH CAUSES HIVES. PHYSICAL EXAMINATION VITAL SIGNS: Height 62 inches, weight 204 pounds, BMI 37.3 kg per meter squared. Blood pressure 115/56 mmHg, pulse 84 beats per minute, respiratory rate 18 breaths per minute, oxygen saturation 94% on room air. GENERAL: The patient is awake and alert, does not appear distressed. Morbidly obese. HEENT: Normocephalic, atraumatic. Pupils are equal, round, and reactive to light. Moist mucous membranes. NECK: Supple. No appreciable thyromegaly. No appreciable carotid bruits. CARDIOVASCULAR: S1, S2, regular rate and rhythm. No rubs or gallops. A moderate grade systolic ejection murmur is appreciated. RESPIRATORY: Faint expiratory wheezing throughout. EXTREMITIES: The skin is warm and dry with a yellowish tinge. No clubbing, cyanosis, or edema. The posterior tibial and dorsalis pedis pulses are 1+ and symmetric. SKIN: No rashes or lesions. NEUROLOGIC Memory/Attention: The patient is awake and alert, oriented to person, place, time, and situation. Cranial Nerves: Cranial nerve I - not tested. Cranial nerve II, III, IV, and - pupils are equal and round, react briskly to light (from 5 mm to 3 mm). Extraocular movements intact. No nystagmus. Cranial nerve V - sensation to light touch and pinprick is diminished in the left V1 through V3 distributions. Strength of the temporalis and masseter muscles is within normal limits. Cranial nerve VII - the face is asymmetric on the left as are all facial movements. There is mild central left facial weakness. Cranial nerve VIII - hearing is diminished to finger rub on the left. Cranial nerve IX, X - the soft palate elevates equally and symmetrically. Cranial nerve XI - normal strength of the bilateral sternocleidomastoid and trapezius muscles. Cranial nerve XII - the tongue protrudes midline and moves symmetrically from side to side. Strength: Bulk is normal. Strength is 5/5 in the right deltoid, bicep, tricep, wrist flexors and extensors, finger flexors and extensors, intrinsic hand muscles, hip flexors, knee flexors and extensors, ankle dorsiflexion and plantar flexion, and intrinsic foot muscles. In the left arm, flexors are 4+/5 and extensors are 4/5 in the left leg, flexors are 4-/5 and extensors are 4/5. Tone is normal in all 4 extremities. DTRs: Deep tendon reflexes are 2+ in the right arm and both legs at the right triceps, right biceps, and right brachioradialis, bilateral patellas, and bilateral Achilles. Deep tendon reflexes are 3+ at the left triceps, biceps, and brachioradialis. Plantar responses are flexor bilaterally. Sensation: Sensation is diminished to light touch and pinprick over the left arm and left leg. Cerebellar: Hafakt-[id number]-iclwur and heel-isabel movements are mildly impaired with dysmetria on the left, but within the bounds of paresis. Gait: Deferred. Speech: Spontaneous speech is normal without appreciable dysarthria or aphasia. Repetition is intact. Involuntary Movements: None. Pronator Drift: Left arm, left leg. LABORATORY DATA: The most recent comprehensive metabolic panel reveals a sodium of 135, chloride of 110, carbon dioxide of 17, calcium of 7.9, total bilirubin of 11.0, AST of 66, total protein of 6.1, albumin of 2.5, globulin of 3.6, and albumin to globulin ratio of 0.7. A hemoglobin A1c is 4.1. Lactic acid is 16.7. Ammonia 155. Total cholesterol 122, triglycerides 70, LDL cholesterol 77, HDL cholesterol 31. TSH 1.960. The CBC with differential and platelets reveals a white blood cell count of 4.54 with a left shift with 71.5% neutrophils, 11.7% lymphocytes, 13.9% monocytes, 2.0% eosinophils, and 0.2% basophils. The hemoglobin and hematocrit are 8.7 and 25.8, respectively. The platelet count is 26. PT 22.4, INR 1.81, PTT 43.7. A urinalysis revealed orange urine, hazy clarity, trace protein, 1+ ketones, 2+ blood, positive nitrites, 2+ bilirubin, 4 urobilinogen, 11 to 20 red blood cells, and moderate urine bacteria. Stool occult blood was positive. Hepatitis B surface antibody quantitative less than 3.1. HCV RNA quantitative pending. Influenza types A, B antigen negative. Group A strep screen negative. A blood culture collected on October 06, 2018 revealed moderate gram-positive cocci in chains. Culture is pending. A throat culture collected on October 06, 2018 revealed usual upper respiratory erik. A repeat blood culture is pending. A urine culture collected on October 06, 2018 reveals no growth at 18 to 24 hours. DIAGNOSTIC STUDIES: Liver ultrasound, October 06, 2018: Cirrhotic liver morphology with ascites. Cystectomy. Abdomen ultrasound, October 06, 2018: Abdominal ascites most prominent in the right upper quadrant. CT of the brain without contrast, October 06, 2018: Ill-defined hypodensities are seen in the bilateral deep white matter in the left subinsular region and may be due to chronic microvascular ischemic disease, gliosis, or possibly vasogenic edema (unlikely). There is a hypodensity along the left medial cerebellar hemisphere, which may be due to subacute ischemia. Cerebral volumes are appropriate for age. There are findings suggestive of [id number] chronic small vessel ischemic disease. Chest x-ray, October 06, 2018: No acute cardiopulmonary abnormalities. ASSESSMENT AND PLAN: Ms. Monzon is a 53-year-old woman with past medical history as detailed, admitted to [facility] on October 06, 2018 with fever, sepsis, and an unidentified primary source of infection, ascites, and a 2-day history of intractable headache. The patient endorses a moderate to severe headache with vascular features. Ms. Monzon has undergone a thorough neurological examination with findings detailed above. The patient's laboratory data and other diagnostic studies have been reviewed and are documented above. Ms. Monzon is experiencing migraine without aura with status migrainosus. RECOMMENDATIONS FOR TREATMENT 1. Promethazine 25 mg intravenously every 6 hours x2 doses. 2. Methylprednisolone 125 mg intravenously x2 doses. 3. Valproate 250 mg intravenously every 6 hours x2 doses. 4. MRI of the brain without contrast will be ordered to evaluate for new onset headache in a patient older than 50 years of age as well as acute to subacute ischemia. 5. Defer treatment of the remaining medical comorbidities to the primary and other services following the patient. Thank you for this consultation. I will continue to follow the patient while she remains in the hospital. TIME SPENT: 50 minutes. Job#: [id number] YUMIU FARZANA
[2018-10-07] MEDS: CEFTRIAXONE SOD 2 GM/NS 100 ML 100 ML IV SCH (16:30)
[2018-10-07] MEDS: RIFAXIMIN 550 MG TABLET PO SCH (17:21)
[2018-10-07] MEDS: VANCOMYCIN HCL 1.25 GM in SODIUM CHLORIDE 0.9% 250ML 250 ML IV SCH (17:56)
[2018-10-07] MEDS ORDERED: PROMETHAZINE 25MG/ NS 50ML (IV) IV SCH ×2 (20:41→20:43)
[2018-10-07] MEDS ORDERED: METHYLPREDNISOLONE SOD SUCC 125 MG/2ML VIAL IV SCH (20:42)
[2018-10-08] VITALS (7 sets, daily range): BP systolic 113–125; BP diastolic 58–69
[2018-10-08 05:17] LABS: HEMATOCRIT 25.8 % (34.2-44.1); HEMOGLOBIN 8.6 g/dL (12.0-16.0); LYMPHOCYTES # (AUTO) 0.2 (1.0-3.2); MEAN CORPUSCULAR HEMOGLOBIN 36.3 pg (28-32); MEAN CORPUSCULAR HGB CONC 33.3 g/dL (31-35); MEAN CORPUSCULAR VOLUME 108.9 fL (81-99); MONOCYTES # (AUTO) 0.1 (0.2-0.8); MONOCYTES % 2.3 % (4.4-11.3); NEUTROPHILS # (AUTO) 1.9 (2.1-6.9); NEUTROPHILS % 86.2 % (38.7-80.0); RED BLOOD COUNT 2.37 x10e6/uL (3.6-5.1); RED CELL DISTRIBUTION WIDTH 15.9 % (11.7-14.4)
[2018-10-08 05:20] LABS: PLATELET COUNT 17 x10e3/uL (140-360)
[2018-10-08] MEDS: D5NS/KCL 20MEQ 1,000 ML IV SCH ×3 (06:11→23:00)
[2018-10-08] MEDS: VANCOMYCIN HCL 1.25 GM in SODIUM CHLORIDE 0.9% 250ML 250 ML IV SCH ×2 (06:11→19:06)
[2018-10-08] MEDS: INSULIN LISPRO 100 UNIT/1 ML 3ML VIAL SQ SCH ×4 (07:30→22:01)
[2018-10-08 08:00] LABS: BAND NEUTROPHILS % (MANUAL) 1 %; LYMPHOCYTES % (MANUAL) 17 % (19-48); MONOCYTES % (MANUAL) 4 % (3.4-9.0); NEUTROPHILS % (MANUAL) 78 % (40-74)
[2018-10-08 08:01] LABS: PLATELET ESTIMATE MARKEDLY DECREASED; PLATELET MORPHOLOGY COMMENT NORMAL; RBC MORPHOLOGY COMMENT NORMAL
[2018-10-08] MEDS: PANTOPRAZOLE 40 MG 10ML VIAL IV SCH (08:31)
[2018-10-08] MEDS: SPIRONOLACTONE 25 MG TAB PO SCH ×2 (08:31→17:15)
[2018-10-08] MEDS: RIFAXIMIN 550 MG TABLET PO SCH ×2 (08:32→17:15)
[2018-10-08] MEDS: URSODIOL 500 MG PO SCH (08:32)
[2018-10-08] MEDS: LACTULOSE SYRUP 20 GM/30 ML UDC PO SCH ×2 (08:32→17:15)
[2018-10-08] MEDS: FUROSEMIDE 40 MG TAB PO SCH (08:32)
[2018-10-08] MEDS: PHYTONADIONE 5 MG TAB PO SCH (08:32)
[2018-10-08] MEDS: CEFTRIAXONE SOD 2 GM/NS 100 ML 100 ML IV SCH (16:30)
[2018-10-08] MEDS: MORPHINE SULFATE INJ 4 MG/ML INJ 1ML IV PRN (17:24)
[2018-10-08] MEDS: ONDANSETRON HCL INJ 2MG/ML 2ML 2 MG/ML VIAL IV PRN (17:24)
[2018-10-08] MEDS ORDERED: SODIUM CHLORIDE 0.9% 250ML 250 ML ONE (20:30)
[2018-10-09] VITALS (7 sets, daily range): BP systolic 114–136; BP diastolic 59–69
[2018-10-09] MEDS: MORPHINE SULFATE INJ 4 MG/ML INJ 1ML IV PRN ×2 (00:25→06:19)
[2018-10-09] MEDS: ONDANSETRON HCL INJ 2MG/ML 2ML 2 MG/ML VIAL IV PRN ×2 (00:25→06:19)
[2018-10-09 05:33] LABS: HEMATOCRIT 24.7 % (34.2-44.1); HEMOGLOBIN 7.6 g/dL (12.0-16.0); LYMPHOCYTES # (AUTO) 0.2 (1.0-3.2); LYMPHOCYTES % 6.7 % (18.0-39.1); MEAN CORPUSCULAR HEMOGLOBIN 34.5 pg (28-32); MEAN CORPUSCULAR HGB CONC 30.8 g/dL (31-35); MEAN CORPUSCULAR VOLUME 112.3 fL (81-99); MONOCYTES # (AUTO) 0.2 (0.2-0.8); NEUTROPHILS # (AUTO) 2.7 (2.1-6.9); NEUTROPHILS % 85.7 % (38.7-80.0); RED CELL DISTRIBUTION WIDTH 15.6 % (11.7-14.4)
[2018-10-09] MEDS: VANCOMYCIN HCL 1.25 GM in SODIUM CHLORIDE 0.9% 250ML 250 ML IV SCH (05:37)
[2018-10-09] MEDS: D5NS/KCL 20MEQ 1,000 ML IV SCH ×2 (05:38→17:34)
[2018-10-09 05:46] LABS: PLATELET COUNT 27 x10e3/uL (140-360)
[2018-10-09] MEDS: INSULIN LISPRO 100 UNIT/1 ML 3ML VIAL SQ SCH ×4 (07:30→20:48)
[2018-10-09 08:02] LABS: ALANINE AMINOTRANSFERASE 34 IU/L (0-55); ALBUMIN 2.5 g/dL (3.5-5.0); ALBUMIN/GLOBULIN RATIO 0.7 (0.8-2.0); ALKALINE PHOSPHATASE 83 IU/L (40-150); ANION GAP 11.1 mmol/L (8-16); BLOOD UREA NITROGEN 12 mg/dL (7-26); BUN/CREATININE RATIO 19 (6-25); CALCIUM 8.1 mg/dL (8.4-10.2); CARBON DIOXIDE 20 mmol/L (22-29); CHLORIDE 113 mmol/L (98-107); CREATININE, SERUM 0.62 mg/dL (0.57-1.11); EST GLOMERULAR FILTRATION RATE > 60 ML/MIN (60-); GLUCOSE 110 mg/dL (74-118); POTASSIUM 4.1 mmol/L (3.5-5.1); SODIUM 140 mmol/L (136-145)
[2018-10-09] MEDS: URSODIOL 500 MG PO SCH (09:00)
[2018-10-09] MEDS: FUROSEMIDE 40 MG TAB PO SCH (09:00)
[2018-10-09] MEDS: LACTULOSE SYRUP 20 GM/30 ML UDC PO SCH ×2 (09:00→17:34)
[2018-10-09] MEDS: PANTOPRAZOLE 40 MG 10ML VIAL IV SCH ×2 (09:00→21:25)
[2018-10-09] MEDS: SPIRONOLACTONE 25 MG TAB PO SCH ×2 (09:00→17:34)
[2018-10-09] MEDS: PHYTONADIONE 5 MG TAB PO SCH (09:00)
[2018-10-09] MEDS: RIFAXIMIN 550 MG TABLET PO SCH ×2 (10:15→17:34)
[2018-10-09] MEDS ORDERED: SODIUM CHLORIDE 0.9% 250ML 250 ML IV NR (10:45)
[2018-10-09] MEDS: CEFTRIAXONE SOD 2 GM/NS 100 ML 100 ML IV SCH (18:26)
[2018-10-10] VITALS (7 sets, daily range): BP systolic 110–147; BP diastolic 58–66
[2018-10-10] MEDS: D5NS/KCL 20MEQ 1,000 ML IV SCH ×3 (05:08→22:35)
[2018-10-10 06:44] LABS: EOSINOPHILS % 1.2 % (0.0-6.0); HEMATOCRIT 28.8 % (34.2-44.1); HEMOGLOBIN 9.4 g/dL (12.0-16.0); LYMPHOCYTES # (AUTO) 0.6 (1.0-3.2); LYMPHOCYTES % 17.8 % (18.0-39.1); MEAN CORPUSCULAR HEMOGLOBIN 36.6 pg (28-32); MEAN CORPUSCULAR HGB CONC 32.6 g/dL (31-35); MEAN CORPUSCULAR VOLUME 112.1 fL (81-99); MONOCYTES # (AUTO) 0.5 (0.2-0.8); NEUTROPHILS # (AUTO) 2.3 (2.1-6.9); NEUTROPHILS % 66.4 % (38.7-80.0); RED BLOOD COUNT 2.57 x10e6/uL (3.6-5.1); RED CELL DISTRIBUTION WIDTH 16.7 % (11.7-14.4)
[2018-10-10 06:48] LABS: PLATELET COUNT 34 x10e3/uL (140-360)
[2018-10-10 07:12] LABS: ALANINE AMINOTRANSFERASE 34 IU/L (0-55); ALBUMIN 2.3 g/dL (3.5-5.0); ALBUMIN/GLOBULIN RATIO 0.7 (0.8-2.0); ALKALINE PHOSPHATASE 79 IU/L (40-150); ANION GAP 9.9 mmol/L (8-16); BILIRUBIN,DIRECT 1.8 mg/dL (0.0-0.5); BLOOD UREA NITROGEN 11 mg/dL (7-26); BUN/CREATININE RATIO 17 (6-25); CALCIUM 7.9 mg/dL (8.4-10.2); CARBON DIOXIDE 21 mmol/L (22-29); CHLORIDE 112 mmol/L (98-107); CREATININE, SERUM 0.63 mg/dL (0.57-1.11); EST GLOMERULAR FILTRATION RATE > 60 ML/MIN (60-); GLUCOSE 96 mg/dL (74-118); POTASSIUM 3.9 mmol/L (3.5-5.1); SODIUM 139 mmol/L (136-145)
[2018-10-10 07:17] LABS: ANISOCYTOSIS SLIG; HYPOCHROMASIA SLIGHT; PLATELET ESTIMATE MARKEDLY DECREASED; PLATELET MORPHOLOGY COMMENT FEW LARGE; POIKILOCYTOSIS SLIG; RBC MORPHOLOGY COMMENT NORMAL
[2018-10-10] MEDS: INSULIN LISPRO 100 UNIT/1 ML 3ML VIAL SQ SCH ×4 (07:30→21:00)
[2018-10-10] MEDS: URSODIOL 500 MG PO SCH (09:00)
[2018-10-10] MEDS: FUROSEMIDE 40 MG TAB PO SCH (09:54)
[2018-10-10] MEDS: PANTOPRAZOLE 40 MG 10ML VIAL IV SCH ×2 (09:54→22:34)
[2018-10-10] MEDS: PHYTONADIONE 5 MG TAB PO SCH (09:54)
[2018-10-10] MEDS: SPIRONOLACTONE 25 MG TAB PO SCH ×2 (09:54→17:50)
[2018-10-10] MEDS: LACTULOSE SYRUP 20 GM/30 ML UDC PO SCH ×2 (09:54→17:50)
[2018-10-10] MEDS: RIFAXIMIN 550 MG TABLET PO SCH ×2 (09:54→17:50)
[2018-10-10] MEDS ORDERED: SODIUM CHLORIDE 0.9% 250ML 250 ML ONE ×2 (12:37→13:27)
[2018-10-10 15:37] LABS: EOSINOPHILS # (AUTO) 0.1 (0.0-0.4); EOSINOPHILS % 1.1 % (0.0-6.0); HEMOGLOBIN 10.9 g/dL (12.0-16.0); LYMPHOCYTES # (AUTO) 0.8 (1.0-3.2); LYMPHOCYTES % 16.8 % (18.0-39.1); MEAN CORPUSCULAR HEMOGLOBIN 35.6 pg (28-32); MEAN CORPUSCULAR HGB CONC 31.1 g/dL (31-35); MEAN CORPUSCULAR VOLUME 114.4 fL (81-99); MONOCYTES # (AUTO) 0.7 (0.2-0.8); MONOCYTES % 14.5 % (4.4-11.3); NEUTROPHILS # (AUTO) 3.2 (2.1-6.9); RED BLOOD COUNT 3.06 x10e6/uL (3.6-5.1); RED CELL DISTRIBUTION WIDTH 16.5 % (11.7-14.4)
[2018-10-10 15:38] LABS: PLATELET COUNT 62 x10e3/uL (140-360)
[2018-10-10] MEDS: CEFTRIAXONE SOD 2 GM/NS 100 ML 100 ML IV SCH (16:30)
--- NOTE | 2018-10-10 17:02 | Diagnostic Imaging Report ---
Procedure: Ultrasound-guided therapeutic paracentesis. charger operator helper: Yvan Reilly MD Pre-operative diagnosis: Small to moderate volume ascites. Post-operative diagnosis: Trace ascites status post paracentesis. Conscious Sedation: The patient's heart rate and pulse oximetry were continuously monitored by the IR nurse. Additional Medications: Lidocaine 1% for local anesthesia Estimated blood loss: Minimal Specimens: 1500 cc of serous ascites. No specimen sent to lab. Implants: None TECHNIQUE/FINDINGS: Informed consent was obtained from the patient and documented in the medical record. Given the patient's thrombocytopenia, she was transfused platelets pre-procedurally. The patient was placed in the supine position. Initial ultrasound demonstrated small to moderate volume ascites in the right lower quadrant. The right lower abdomen was prepped and draped in standard sterile fashion. 1% lidocaine was infiltrated into the skin and subcutaneous tissues for local anesthesia. Then under continuous sonographic guidance, a 5 Fr catheter was advanced into the peritoneal space. A total of 1500 cc of serous fluid was removed with suction. The catheter was removed. Sterile dressing was applied. The patient tolerated the procedure well. IMPRESSION: Ultrasound-guided therapeutic paracentesis with removal of 1500 cc of serous fluid. Signed by: Dr. Yvan Reilly MD on 10/10/2018 4:59 PM
[2018-10-10 20:45] LABS: INR 1.5; PROTHROMBIN TIME 19.4 seconds (11.9-14.5)
[2018-10-10] MEDS: MORPHINE SULFATE INJ 4 MG/ML INJ 1ML IV PRN (23:17)
[2018-10-11] VITALS (8 sets, daily range): BP systolic 115–124; BP diastolic 55–61
[2018-10-11] MEDS: INSULIN LISPRO 100 UNIT/1 ML 3ML VIAL SQ SCH ×4 (07:30→21:00)
[2018-10-11] MEDS: D5NS/KCL 20MEQ 1,000 ML IV SCH (07:51)
[2018-10-11] MEDS: LACTULOSE SYRUP 20 GM/30 ML UDC PO SCH ×2 (09:00→17:12)
[2018-10-11] MEDS: URSODIOL 500 MG PO SCH (09:00)
[2018-10-11] MEDS: SPIRONOLACTONE 25 MG TAB PO SCH ×2 (09:07→17:12)
[2018-10-11] MEDS: FUROSEMIDE 40 MG TAB PO SCH (09:07)
[2018-10-11] MEDS: PANTOPRAZOLE 40 MG 10ML VIAL IV SCH ×2 (09:07→22:14)
[2018-10-11] MEDS: PHYTONADIONE 5 MG TAB PO SCH (09:08)
[2018-10-11] MEDS: RIFAXIMIN 550 MG TABLET PO SCH ×2 (09:08→17:12)
[2018-10-11] MEDS: ONDANSETRON HCL INJ 2MG/ML 2ML 2 MG/ML VIAL IV PRN (10:25)
[2018-10-11] MEDS: MORPHINE SULFATE INJ 4 MG/ML INJ 1ML IV PRN (10:25)
[2018-10-11] MEDS ORDERED: CYCLOBENZAPRINE HCL 10 MG TAB PO PRN (16:00)
[2018-10-11] MEDS: CEFTRIAXONE SOD 2 GM/NS 100 ML 100 ML IV SCH (17:12)
[2018-10-11] MEDS: FUROSEMIDE INJ 10 MG/ML 4 ML VIAL IV SCH (21:00)
[2018-10-12] VITALS (9 sets, daily range): BP systolic 105–114; BP diastolic 53–57
[2018-10-12 05:49] LABS: BASOPHILS % 0.3 % (0.0-1.0); EOSINOPHILS # (AUTO) 0.1 (0.0-0.4); EOSINOPHILS % 4.5 % (0.0-6.0); HEMATOCRIT 28.4 % (34.2-44.1); HEMOGLOBIN 9.4 g/dL (12.0-16.0); LYMPHOCYTES # (AUTO) 0.6 (1.0-3.2); MEAN CORPUSCULAR HEMOGLOBIN 35.6 pg (28-32); MEAN CORPUSCULAR HGB CONC 33.1 g/dL (31-35); MEAN CORPUSCULAR VOLUME 107.6 fL (81-99); MONOCYTES # (AUTO) 0.4 (0.2-0.8); MONOCYTES % 13.4 % (4.4-11.3); NEUTROPHILS # (AUTO) 1.8 (2.1-6.9); NEUTROPHILS % 60.5 % (38.7-80.0); RED BLOOD COUNT 2.64 x10e6/uL (3.6-5.1); RED CELL DISTRIBUTION WIDTH 15.8 % (11.7-14.4)
[2018-10-12 06:04] LABS: ALANINE AMINOTRANSFERASE 37 IU/L (0-55); ALBUMIN 2.3 g/dL (3.5-5.0); ALBUMIN/GLOBULIN RATIO 0.7 (0.8-2.0); ALKALINE PHOSPHATASE 107 IU/L (40-150); BLOOD UREA NITROGEN 8 mg/dL (7-26); CALCIUM 8.1 mg/dL (8.4-10.2); CARBON DIOXIDE 29 mmol/L (22-29); EST GLOMERULAR FILTRATION RATE > 60 ML/MIN (60-); GLUCOSE 78 mg/dL (74-118); POTASSIUM 3.4 mmol/L (3.5-5.1); SODIUM 134 mmol/L (136-145)
[2018-10-12 06:17] LABS: PLATELET COUNT 40 x10e3/uL (140-360)
[2018-10-12 06:49] LABS: ANION GAP 9.4 mmol/L (8-16); BUN/CREATININE RATIO 15 (6-25); CHLORIDE 102 mmol/L (98-107); CREATININE, SERUM 0.61 mg/dL (0.57-1.11)
[2018-10-12] MEDS: INSULIN LISPRO 100 UNIT/1 ML 3ML VIAL SQ SCH ×4 (07:30→20:30)
[2018-10-12 08:06] LABS: HYPOCHROMASIA SLIGHT; PLATELET ESTIMATE MODERATELY DECREASED; PLATELET MORPHOLOGY COMMENT FEW LARGE; RBC MORPHOLOGY COMMENT NORMAL
[2018-10-12] MEDS: SPIRONOLACTONE 25 MG TAB PO SCH ×2 (09:16→17:21)
[2018-10-12] MEDS: LACTULOSE SYRUP 20 GM/30 ML UDC PO SCH ×2 (09:16→17:21)
[2018-10-12] MEDS: FUROSEMIDE INJ 10 MG/ML 4 ML VIAL IV SCH ×2 (09:16→20:30)
[2018-10-12] MEDS: RIFAXIMIN 550 MG TABLET PO SCH ×2 (09:16→17:21)
[2018-10-12] MEDS: PANTOPRAZOLE 40 MG 10ML VIAL IV SCH ×2 (09:16→21:00)
[2018-10-12] MEDS: PHYTONADIONE 5 MG TAB PO SCH (09:16)
[2018-10-12] MEDS: URSODIOL 500 MG PO SCH (09:16)
[2018-10-12] MEDS ORDERED: POTASSIUM CHLORIDE 10MEQ EA PO NR (10:30)
[2018-10-12] MEDS: CEFTRIAXONE SOD 2 GM/NS 100 ML 100 ML IV SCH (17:21)
[2018-10-13 00:52] VITALS: BP 114/54
[2018-10-13 04:00] VITALS: BP 117/55
[2018-10-13 05:38] LABS: ALANINE AMINOTRANSFERASE 33 IU/L (0-55); ALBUMIN 2.3 g/dL (3.5-5.0); ALBUMIN/GLOBULIN RATIO 0.7 (0.8-2.0); ALKALINE PHOSPHATASE 118 IU/L (40-150); ANION GAP 9.6 mmol/L (8-16); BLOOD UREA NITROGEN 9 mg/dL (7-26); BUN/CREATININE RATIO 15 (6-25); CALCIUM 8.3 mg/dL (8.4-10.2); CARBON DIOXIDE 29 mmol/L (22-29); CHLORIDE 101 mmol/L (98-107); CREATININE, SERUM 0.59 mg/dL (0.57-1.11); EST GLOMERULAR FILTRATION RATE > 60 ML/MIN (60-); GLUCOSE 88 mg/dL (74-118); POTASSIUM 3.6 mmol/L (3.5-5.1); SODIUM 136 mmol/L (136-145)
[2018-10-13] MEDS: INSULIN LISPRO 100 UNIT/1 ML 3ML VIAL SQ SCH ×2 (07:30→11:30)
[2018-10-13 08:00] VITALS: BP 103/53
[2018-10-13 08:32] VITALS: BP 103/53
[2018-10-13] MEDS: LACTULOSE SYRUP 20 GM/30 ML UDC PO SCH ×2 (09:00→09:15)
[2018-10-13] MEDS: URSODIOL 500 MG PO SCH (09:00)
[2018-10-13] MEDS: FUROSEMIDE INJ 10 MG/ML 4 ML VIAL IV SCH (09:15)
[2018-10-13] MEDS: RIFAXIMIN 550 MG TABLET PO SCH (09:15)
[2018-10-13] MEDS: PANTOPRAZOLE 40 MG 10ML VIAL IV SCH (09:15)
[2018-10-13] MEDS: SPIRONOLACTONE 25 MG TAB PO SCH (09:15)
[2018-10-13] MEDS: PHYTONADIONE 5 MG TAB PO SCH (09:15)
[2018-10-13 12:12] VITALS: BP 108/55
--- NOTE | 2018-10-13 19:15 | Discharge Summary ---
HISTORY: She is a [id number]-female patient presented to the emergency room with the complaint of fever and intense headache. ADMITTING DIAGNOSES: Fever, febrile illness in an advanced cirrhotic patient, who was on the liver transplant, and severe headache. The patient also has a UTI, thrombocytopenia, anemia, diabetes mellitus, and ascites. So, etiology entertained could be SBP. HOSPITAL COURSE: The patient was admitted with above diagnoses and the patient has ID and Hematology-Oncology and Neurology consult and GI consult was done. The patient's blood cultures had shown positive for the strep viridans, gram positive cocci in chains. An abdominal ultrasound was done, which has found just ascites. The patient was started treatment on Rocephin 2 g every 4 hours and vancomycin was added, which was eventually changed to ceftriaxone only. The patient had diagnostic abdominal paracentesis done, but unfortunately IR did not send ascites fluid for the cultures and cytology or any kind of laboratory testing. So, those reports were not available. The patient had echocardiogram done and EF was 55% to 60%. The patient received antibiotics and the patient improved significantly. Upon stabilization, the patient will be discharged home on oral Levaquin. The patient will be followed up as outpatient. The patient needs to continue to follow up with the liver transplant team. DISCHARGE DIAGNOSES: Streptococcus viridans, sepsis, bacteremia in a liver cirrhosis patient with ascites, diabetes mellitus, hypertension, thrombocytopenia, and the patient had received platelet transfusion. MD RADHA Eugene/HELENE /[id number]
== END 2018-10-13 13:15 | disposition home or self-care (01) | DRG 871 ==
LOC: ER 07:14 → ERHOLD 12:20 → MED/SURG2 14:18
PROVIDERS: ADMIT Internal Medicine; ATTEND Internal Medicine
PROC: 30233K1 Transfusion of Nonautologous Frozen Plasma into Peripheral Vein, Percutaneous Approach (ICD-10-PCS; principal; 2018-10-06)
PROC: 30233R1 Transfusion of Nonautologous Platelets into Peripheral Vein, Percutaneous Approach (ICD-10-PCS; 2018-10-09)
PROC: 0W9G3ZZ Drainage of Peritoneal Cavity, Percutaneous Approach (ICD-10-PCS; 2018-10-10)
DX: A41.9 Sepsis, unspecified organism (principal); K65.2 Spontaneous bacterial peritonitis; N39.0 Urinary tract infection, site not specified; D68.9 Coagulation defect, unspecified; R18.8 Other ascites; I69.354 Hemiplegia and hemiparesis following cerebral infarction affecting left non-dominant side; D69.6 Thrombocytopenia, unspecified; E86.0 Dehydration; E11.9 Type 2 diabetes mellitus without complications; B95.4 Other streptococcus as the cause of diseases classified elsewhere; D70.9 Neutropenia, unspecified; E87.6 Hypokalemia; E80.6 Other disorders of bilirubin metabolism; R19.7 Diarrhea, unspecified; K31.84 Gastroparesis; K72.90 Hepatic failure, unspecified without coma; K21.9 Gastro-esophageal reflux disease without esophagitis; K74.3 Primary biliary cirrhosis; R51 Headache; D63.8 Anemia in other chronic diseases classified elsewhere; Z76.82 Awaiting organ transplant status
CPT/HCPCS: 36415; 49083; 70450; 70551; 71046; 76705; 80053; 80061; 80202; 81001; 82140; 82248; 82270; 82948; 83036; 83518; 83605; 83690; 83735; 84443; 85025; 85610; 85730; 86706; 86900; 86945; 87040; 87070; 87071; 87086; 87205; 87400; 87493; 87522; 93306; 93880; 97139; 99284; J0696; J1200; J1885; J1940; J2270; J2405; J2543; J2550; J2765; J2930; J3370; J7030; J7050; P9017; P9034

== ENCOUNTER 2018-12-20 11:03 | Inpatient (IN) | payer BC, MEDICARE ==
[~2018-12-20] VITALS: Ht 157.5 cm; Wt 84.8 kg
--- OUTSIDE RECORDS SUMMARY | 2018-12-20 11:05 | XMS REPORT | Clinical Summary ---
Author Author [facility] Organization [facility] Address Unknown Phone Unavailable Care Team Providers Care Aircraft Stress Analyst Name Role Phone Asked, No Pcp PCP [...] 2017 COLON CANCER SCREENING 2017 SHINGLES VACCINES (#1) 2017 INFLUENZA VACCINE 03/22/2019 Results Not on fileafter 12/19/2017 Insurance Payer Benefit Subscriber ID Type Phone Address Plan / Group [employer] TXP xxxxxxxxx Transplant CARE [facility] xxxxxxxxx HMO/PPO THCARE CHOICE/CHO ICE + UHC MEDICARE UNITED xxxxxxxxx HMO HEALTHCARE MEDICARE Advance Directives Patient has advance care planning documents on file. For more information, luciano hallman contact: Edis Marc [address] [place] [address]
--- OUTSIDE RECORDS SUMMARY | 2018-12-20 11:06 | XMS REPORT | Clinical Summary ---
Author Author [facility] Address Unknown Phone Unavailable Care Team Providers Care Paper Colorer Name Role Phone Aren Martel Estefani PCP Allergies Comments Active Allergy Reactions Severity Noted Date To Iodine Contrast Iodine And Iodide Swelling High 06/16/2016 Containing Products Medications End Date Status Medication Sig Dispensed Refills Start Date Active propranolol (INDERAL) 20 Take 20 mg by 0 MG tablet mouth daily . Active rifAXIMin (XIFAXAN) 550 Take 1 tablet 60 tablet 6 11/16/201 mg TabIndications: (550 mg 7 Cirrhosis of liver with total) by ascites, unspecified mouth 2 (two) hepatic cirrhosis type times daily. (HCC), Awaiting organ transplant status, Hepatic encephalopathy (HCC) Active iron dextran complex Inject 0 (IRON DEXTRAN intravenously IV)Indications: Ascites . of liver Active spironolactone Take 100 mg 0 (ALDACTONE) 100 MG tablet by mouth daily. Active albuterol HFA (VENTOLIN Inhale 1 puff 0 HFA) 90 mcg/actuation by mouth via inhalerIndications: One inhaler every pump on nebulizer; unsure 6 (six) hours of dosage. as needed for Wheezing or Shortness of Breath. Active pantoprazole (PROTONIX) Take 1 tablet 60 tablet 3 40 MG tablet (40 mg total) 9 by mouth 2 (two) times daily. 01/10/2019 Active furosemide (LASIX) 40 MG Take 1.5 45 tablet 3 tablet tablets (60 9 mg total) by mouth daily for 30 days. Active lactulose (CHRONULAC) 20 3 (three) 0 gram/30 mL solution times daily. Active ursodiol (ACTIGALL) 300 daily. 0 mg capsule 05/23/2018 Discontinued furosemide (LASIX) 40 MG 40 [...] 0 tabletIndications: in the mouth daily. afternoon 12/19/2018 Discontinued traZODone (DESYREL) 100 Take 100 mg 0 MG tabletIndications: by mouth Awaiting organ transplant nightly. status, Cirrhosis of liver with ascites, unspecified hepatic cirrhosis type (HCC) 12/19/2018 Discontinued lactulose (CHRONULAC) 10 Take 20 g by 2 gram/15 mL solution mouth every 6 8 (six) hours. 10/24/2018 Discontinued omeprazole (PRILOSEC) 40 Take 40 mg by 0 MG capsule mouth daily. 07/27/2018 Discontinued spironolactone Take 100 mg 0 (ALDACTONE) 100 MG tablet by mouth 8 daily. 12/19/2018 Discontinued ursodiol (ACTIGALL) 300 Take 300 mg 0 mg capsule by mouth daily. 07/27/2018 Discontinued furosemide (LASIX) 40 MG Take 40 mg by 0 tablet mouth daily. 10/24/2018 Discontinued esomeprazole (NEXIUM) 20 Take 20 mg by 0 MG capsule mouth daily. 10/24/2018 Discontinued spironolactone Take 1.5 45 tablet 5 (ALDACTONE) 100 MG tablets (150 8 tabletIndications: mg total) by Decompensated hepatic mouth daily. cirrhosis (HCC), Portal hypertension (HCC), Other ascites, Pedal edema 10/24/2018 Discontinued furosemide (LASIX) 20 MG Take 1.5 90 tablet 5 tabletIndications: tablets (30 8 Decompensated hepatic mg total) by cirrhosis (HCC), Portal mouth 2 (two) hypertension (HCC), Other times daily. ascites, Pedal edema 12/11/2018 Discontinued traZODone (DESYREL) 50 MG daily as 0 tablet needed. 9 12/11/2018 Discontinued furosemide (LASIX) 40 MG Take 40 mg by 0 tablet mouth daily. 12/19/2018 Discontinued levocetirizine (XYZAL) 5 daily as 0 MG tablet needed. 9 12/11/2018 Discontinued pantoprazole (PROTONIX) Take 40 mg by 0 40 MG tablet mouth 2 (two) times daily. 12/19/2018 Discontinued levoFLOXacin (LEVAQUIN) Take 1 tablet 5 tablet 0 500 MG tablet (500 mg 9 total) by mouth daily for 10 days. Active Problems Problem Noted Date Hepatocellular carcinoma 12/04/2018 Hyponatremia 12/04/2018 Coagulopathy 12/04/2018 Pulmonary hypertension 11/29/2018 Overview: Right heart cath 11/16/18 PAP 43/24 (28) Liver mass 10/24/2018 Awaiting organ transplant status 04/27/2017 Anemia 10/09/2016 [...] We will also need clearance from her HOME CARE GIVER oncologist that she does not have any [...] abdominal pain. She met with a local certified breastfeeding educator who diagnosed her with an "ovarian tumor" and has referred her to a gynecology oncologist. I have no seen documentation from her HOME CARE GIVER oncologist but she states that the "ovarian [...] Encounters Care Team Description Date Type Specialty Tim Ramos MD Sood, Gagan K., MD Awaiting organ transplant status 12/19/2018 Follow-Up Transplant Hepatology Monika Vanegas Appointment (LVM. Calling to confirm 12/19 appt w/pt.) 12/14/2018 Telephone Transplant Hepatology Monika Vanegas Appointment (Pt called and said she was just released from hospital and wanted to schedule appt. I explained pt has an appt here in clinic on 12/19. Pt confirmed her appt.) 12/12/2018 Telephone Transplant Hepatology Marleny Pino RN MELD 12/06/2018 Telephone Transplant Hepatology Marleny Pino RN Follow-up 12/04/2018 Telephone Transplant Hepatology Tim Ramos MD Changela, MD Amos Bates Maria, MD Kemal, MD Valente Mckenna, Sung Escamilla MD Thrombocytopenia (HCC); Cirrhosis of liver with ascites, unspecified hepatic cirrhosis type (HCC); Portal hypertensive gastropathy (HCC); Acute ITP (HCC); Chronic ITP (idiopathic thrombocytopenia) (HCC); Awaiting organ transplant status; Decompensated hepatic cirrhosis (HCC); Portal hypertension (HCC); Indirect hyperbilirubinemia; Hepatic encephalopathy (HCC); Liver mass; Ascites of liver; Chronic diarrhea; Epigastric pain; Coagulopathy (HCC); Hepatocellular carcinoma (HCC) 11/29/2018 [facility] General Internal Medicine - Encounter 12/11/2018 11/29/2018 Travel Marleny Pino RN Follow-up 11/28/2018 Telephone Transplant Hepatology Marleny Pino RN Hematolgy Consult 11/20/2018 Telephone Transplant Hepatology Tim Ramos MD Khaderi, Aissatou Simpson MD Awaiting organ transplant status (Primary Dx); Cancer screening; Liver mass; Cirrhosis of liver with ascites, unspecified hepatic cirrhosis type (HCC); Portal hypertension ; Obesity (BMI 30-39.9); Hepatic encephalopathy (HCC); Ascites of liver 10/24/2018 Follow-Up Transplant Hepatology Monika Vanegas 10/23/2018 Telephone Central Scheduling Monika Vanegas Appointment (Called to confirm 10/24 Dr Berg appt @ 2 pm w/pt. Pts daughter said pt has been in hospital in [facility] since 10/06 i transferred the daughter to speak [place]. Itinerary mailed. ) 10/12/2018 Telephone Transplant Hepatology Stella Hamilton RN 10/04/2018 Documentation Transplant Hepatology Monika Vanegas Appointment (Scheduled 11/30 mri & confirmed 10/24 clinic appt w/pt. Itinerary mailed.) 10/03/2018 Telephone Transplant Hepatology Monika Vanegas Appointment (LVM. Calling to schedule mri due mid november.) 10/03/2018 Telephone Transplant HepatMarleny Bradley RN Awaiting organ transplant status 10/02/2018 Orders Only Transplant HepatMarleny Bradley RN Awaiting organ transplant status (Primary Dx) 10/02/2018 Orders Only Transplant Hepatology Marleny Pino RN [...] RN Follow-up 08/07/2018 Telephone Transplant Hepatology Tim Rmaos MD Screening for endocrine/metabolic/immunity disorders 07/25/2018 Hospital [...] 07/25 appt w/pt.) 07/24/2018 Telephone Transplant Hepatology Cook, Marleny, RN Screening for endocrine/metabolic/immunity disorders (Primary Dx) 07/24/2018 Orders Only Transplant Hepatology Monika Vanegas 06/29/2018 Documentation Transplant Hepatology Monika Vanegas 06/29/2018 Documentation Transplant Hepatology Monika Vanegas Appointment (Rescheduled 09/05 [...] bmds w/pt. Itinerary mailed.) 03/29/2018 Telephone Transplant Hepatology Marleny Pino RN Osteopenia, unspecified location (Primary Dx) 03/28/2018 Orders Only Transplant Hepatology Marleny Pino RN Follow-up 03/28/2018 Telephone Transplant Hepatology Marleny Pino RN Follow-up 03/23/2018 Telephone Transplant Hepatology Monika Vanegas 03/23/2018 Documentation Transplant Hepatology Christiano Solis MD Jalal, Tim Orosco MD Ascites of liver 03/21/2018 Follow-Up Transplant Hepatology Monika Vanegas Appointment (Confirmed 03/21 appt.) 03/20/2018 Telephone Transplant Hepatology Christiano Solis MD Liver lesion 03/08/2018 Hospital Radiology Encounter Christiano Solis MD Awaiting organ transplant status 03/08/2018 Orders Only Lab Marleny Pino RN Awaiting organ transplant status 02/27/2018 Orders Only Transplant Hepatology Marleny Pino RN Liver lesion (Primary Dx) 02/17/2018 Orders Only Transplant Hepatology Monika Vanegas Appointment (Scheduled 03/08 mri appt & 03/21 [facility]t w/pt. Itinerary mailed. ) 02/17/2018 Telephone Transplant Hepatology Marleny Pino RN Awaiting organ transplant status (Primary Dx) 02/17/2018 Orders Only Transplant Hepatology after 12/19/2017 Family History Medical History Relation Name Comments [...] Vital Signs Time Taken Vital Sign Reading 12/19/2018 9:19 AM CDT Blood Pressure 123/75 12/19/2018 9:19 AM CDT Pulse 77 12/19/2018 9:19 AM CDT Temperature 36.9 C (98.5 F) 12/19/2018 9:19 AM CDT Respiratory Rate 16 12/19/2018 9:19 AM CDT Oxygen Saturation 100% - Inhaled Oxygen - Concentration 12/19/2018 9:19 AM CDT Weight 82.6 kg (182 lb) 12/19/2018 9:19 AM CDT Height 157.5 cm (5' 2") 12/19/2018 9:19 AM CDT Body Mass Index 33.29 Plan of Treatment Not on file Implants Device Identifier Shelf Expiration Date Model / Serial / Lot Implanted Type Area Manufactur er 02/18/2017 [id number] / / [id number] Device Clsr Angio-Seal Vip 6fr Cardi[employer]asc [facility] [id number] - [id number] ular MED:CARDIA Implanted: Qty: 1 on 04/27/2016 by Greta Phan MD Procedures Comments Procedure Name Priority Date/Time Associated Diagnosis RHYTHM STRIP - SCAN 12/12/2018 3:31 PM CDT TRANSFUSION SERVICE 12/11/2018 REPORT - SCAN 6:01 PM CDT CBC W/PLT COUNT & AUTO Routine 12/11/2018 DIFFERENTIAL 6:41 AM CDT CBC W/PLT COUNT & AUTO Routine 12/11/2018 DIFFERENTIAL 6:41 AM CDT HEPATIC FUNCTION PANEL Routine 12/11/2018 6:41 AM CDT BASIC METABOLIC PANEL (7) Routine 12/11/2018 6:41 AM CDT PROTHROMBIN TIME/INR Routine 12/11/2018 6:41 AM CDT PREPARE LEUKO-REDUCED Routine 12/10/2018 PLATELETS 11:54 PM CDT TRANSFUSION SERVICE 12/10/2018 REPORT - SCAN 6:01 PM CDT (CELLAVISION MANUAL DIFF) Routine 12/10/2018 4:19 AM CDT CBC W/PLT COUNT & AUTO Routine 12/10/2018 DIFFERENTIAL 4:19 AM CDT CBC W/PLT COUNT & AUTO Routine 12/10/2018 DIFFERENTIAL 4:19 AM CDT HEPATIC FUNCTION PANEL Routine 12/10/2018 4:19 AM CDT BASIC METABOLIC PANEL (7) Routine 12/10/2018 4:19 AM CDT PROTHROMBIN TIME/INR Routine 12/10/2018 4:19 AM CDT PREPARE LEUKO-REDUCED Routine 12/09/2018 PLATELETS 11:54 PM CDT PREPARE LEUKO-REDUCED Routine 12/09/2018 PLATELETS 11:54 PM CDT TRANSFUSION SERVICE 12/09/2018 REPORT - SCAN 6:02 PM CDT TRANSFUSE LEUKO-REDUCED Routine 12/09/2018 PLATELETS 4:57 PM CDT ABORH, MANUAL Routine 12/09/2018 11:28 AM CDT TYPE AND SCREEN, Routine 12/09/2018 AUTOMATED 11:28 AM CDT (CELLAVISION MANUAL DIFF) Routine 12/09/2018 8:39 AM CDT CBC W/PLT COUNT & AUTO Routine 12/09/2018 DIFFERENTIAL 8:39 AM CDT CBC W/PLT COUNT & AUTO Routine 12/09/2018 DIFFERENTIAL 8:39 AM CDT PROTHROMBIN TIME/INR Routine 12/09/2018 4:14 AM CDT LIPASE Add-On 12/09/2018 4:11 AM CDT HEPATIC FUNCTION PANEL Routine 12/09/2018 4:11 AM CDT BASIC METABOLIC PANEL (7) Routine 12/09/2018 4:11 AM CDT TRANSFUSION SERVICE 12/08/2018 REPORT - SCAN 6:03 PM CDT TRANSFUSE LEUKO-REDUCED Routine 12/08/2018 PLATELETS 1:23 PM CDT CBC W/PLT COUNT & AUTO Routine 12/08/2018 DIFFERENTIAL 4:23 AM CDT CBC W/PLT COUNT & AUTO Routine 12/08/2018 DIFFERENTIAL 4:23 AM CDT HEPATIC FUNCTION PANEL Routine 12/08/2018 4:23 AM CDT BASIC METABOLIC PANEL (7) Routine 12/08/2018 4:23 AM CDT PROTHROMBIN TIME/INR Routine 12/08/2018 4:23 AM CDT TRANSFUSE LEUKO-REDUCED Routine 12/08/2018 PLATELETS 4:10 AM CDT PREPARE LEUKO-REDUCED Routine 12/07/2018 PLATELETS 11:55 PM CDT TRANSFUSION SERVICE 12/07/2018 REPORT - SCAN 6:03 PM CDT CBC W/PLT COUNT & AUTO Routine 12/07/2018 DIFFERENTIAL 6:39 AM CDT CBC W/PLT COUNT & AUTO Routine 12/07/2018 DIFFERENTIAL 6:39 AM CDT HEPATIC FUNCTION PANEL Routine 12/07/2018 6:39 AM CDT BASIC METABOLIC PANEL (7) Routine 12/07/2018 6:39 AM CDT PROTHROMBIN TIME/INR Routine 12/07/2018 6:39 AM CDT PREPARE LEUKO-REDUCED Routine 12/07/2018 PLATELETS 12:28 AM CDT TRANSFUSE LEUKO-REDUCED Routine 12/06/2018 PLATELETS 8:37 PM CDT TRANSFUSION SERVICE 12/06/2018 REPORT - SCAN 6:07 PM CDT CBC W/PLT COUNT & AUTO Routine 12/06/2018 DIFFERENTIAL 8:06 AM CDT CBC W/PLT COUNT & AUTO Routine 12/06/2018 DIFFERENTIAL 8:06 AM CDT HEPATIC FUNCTION PANEL Routine 12/06/2018 6:33 AM CDT BASIC METABOLIC PANEL (7) Routine 12/06/2018 6:33 AM CDT PROTHROMBIN TIME/INR Routine 12/06/2018 6:33 AM CDT TRANSFUSE LEUKO-REDUCED Routine 12/05/2018 PLATELETS 8:11 PM CDT NM BONE SCAN WHOLE BODY Routine 12/05/2018 3:31 PM CDT ABORH, MANUAL Routine 12/05/2018 11:03 AM CDT TYPE AND SCREEN, Routine 12/05/2018 AUTOMATED 11:03 AM CDT CBC W/PLT COUNT & AUTO Routine 12/05/2018 DIFFERENTIAL 5:38 AM CDT CBC W/PLT COUNT & AUTO Routine 12/05/2018 DIFFERENTIAL 5:38 AM CDT HEPATIC FUNCTION PANEL Routine 12/05/2018 5:38 AM CDT BASIC METABOLIC PANEL (7) Routine 12/05/2018 5:38 AM CDT PROTHROMBIN TIME/INR Routine 12/05/2018 5:[address] CHEST WITHOUT IV Routine 12/04/2018 CONTRAST 9:18 PM CDT CBC W/PLT COUNT & AUTO Routine 12/04/2018 DIFFERENTIAL 4:59 AM CDT CBC W/PLT COUNT & AUTO Routine 12/04/2018 DIFFERENTIAL 4:59 AM CDT HEPATIC FUNCTION PANEL Routine 12/04/2018 4:59 AM CDT BASIC METABOLIC PANEL (7) Routine 12/04/2018 4:59 AM CDT PROTHROMBIN TIME/INR Routine 12/04/2018 4:59 AM CDT HEPATITIS C ANTIBODY Routine 12/03/2018 12:10 PM CDT HEPATITIS B PANEL Routine 12/03/2018 12:10 PM CDT HEPATITIS B CORE Routine 12/03/2018 ANTIBODY, TOTAL 12:10 PM CDT CBC W/PLT COUNT & AUTO Routine 12/03/2018 DIFFERENTIAL 9:39 AM CDT CBC W/PLT COUNT & AUTO Routine 12/03/2018 DIFFERENTIAL 9:39 AM CDT IRON, TIBC, % SAT. Routine 12/03/2018 (WITHOUT FERRITIN) 4:09 AM CDT FERRITIN Routine 12/03/2018 4:09 AM CDT FOLATE, SERUM Routine 12/03/2018 4:09 AM CDT VITAMIN B12 Routine 12/03/2018 4:09 AM CDT HEPATIC FUNCTION PANEL Routine 12/03/2018 4:09 AM CDT BASIC METABOLIC PANEL (7) Routine 12/03/2018 4:09 AM CDT PROTHROMBIN TIME/INR Routine 12/03/2018 4:09 AM CDT CBC W/PLT COUNT & AUTO Routine 12/02/2018 DIFFERENTIAL 5:33 AM CDT RETICULOCYTE COUNT Routine 12/02/2018 5:33 AM CDT HEPATIC FUNCTION PANEL Routine 12/02/2018 5:33 AM CDT BASIC METABOLIC PANEL (7) Routine 12/02/2018 5:33 AM CDT PROTHROMBIN TIME/INR Routine 12/02/2018 5:33 AM CDT CBC W/PLT COUNT & AUTO Routine 12/02/2018 DIFFERENTIAL 5:33 AM CDT CBC W/PLT COUNT & AUTO Routine 12/01/2018 DIFFERENTIAL 5:39 AM CDT HEPATITIS B PCR, Routine 12/01/2018 QUANTITATIVE 5:39 AM CDT HEPATITIS B CORE Routine 12/01/2018 ANTIBODY, IGM 5:39 AM CDT HEPATIC FUNCTION PANEL Routine 12/01/2018 5:39 AM CDT BASIC METABOLIC PANEL (7) Routine 12/01/2018 5:39 AM CDT PROTHROMBIN TIME/INR Routine 12/01/2018 5:39 AM CDT CBC W/PLT COUNT & AUTO Routine 12/01/2018 DIFFERENTIAL 5:39 AM CDT PHOSPHORUS Routine 12/01/2018 5:39 AM CDT MAGNESIUM Routine 12/01/2018 5:39 AM CDT CBC W/PLT COUNT & AUTO Routine 11/30/2018 DIFFERENTIAL 4:06 AM CDT PROTHROMBIN TIME/INR Routine 11/30/2018 4:06 AM CDT CBC W/PLT COUNT & AUTO Routine 11/30/2018 DIFFERENTIAL 4:06 AM CDT PHOSPHORUS Routine 11/30/2018 4:06 AM CDT MAGNESIUM Routine 11/30/2018 4:06 AM CDT HEPATIC FUNCTION PANEL Routine 11/30/2018 4:06 AM CDT BASIC METABOLIC PANEL (7) Routine 11/30/2018 4:06 AM CDT MR ABDOMEN WITH/WITHOUT Routine 11/30/2018 IV CONTRAST 12:07 AM CDT PT/APTT Routine 11/29/2018 9:15 AM CDT FIBRINOGEN Routine 11/29/2018 9:15 AM CDT D-DIMER Routine 11/29/2018 9:15 AM CDT PROTHROMBIN TIME/INR Routine 11/29/2018 9:15 AM CDT CBC W/PLT COUNT & AUTO Routine 11/29/2018 DIFFERENTIAL 5:07 AM CDT PERIPHERAL BLOOD SMEAR - Routine 11/29/2018 HOLD ONLY 5:07 AM CDT CBC W/PLT COUNT & AUTO Routine 11/29/2018 DIFFERENTIAL 5:07 AM CDT PHOSPHORUS Routine 11/29/2018 5:07 AM CDT MAGNESIUM Routine 11/29/2018 5:07 AM CDT HEPATIC FUNCTION PANEL Routine 11/29/2018 5:07 AM CDT BASIC METABOLIC PANEL (7) Routine 11/29/2018 5:07 AM CDT CBC W/PLT COUNT & AUTO Routine 10/24/2018 Awaiting organ transplant DIFFERENTIAL 11:57 AM BEATER TENDER status Cirrhosis of liver with ascites, unspecified hepatic cirrhosis type (HCC) PROTHROMBIN TIME/INR Routine 10/24/2018 Awaiting organ transplant 11:57 AM BEATER TENDER status Cirrhosis of liver with ascites, unspecified hepatic cirrhosis type (HCC) COMPREHENSIVE METABOLIC Routine 10/24/2018 Awaiting organ transplant PANEL 11:57 AM BEATER TENDER status Cirrhosis of liver with ascites, unspecified hepatic cirrhosis type (HCC) CBC W/PLT COUNT & AUTO Routine 10/24/2018 Awaiting organ transplant DIFFERENTIAL 11:57 AM BEATER TENDER status Cirrhosis of liver with ascites, unspecified hepatic cirrhosis type (HCC) BILIRUBIN, DIRECT Routine 10/24/2018 Awaiting organ transplant 11:57 AM BEATER TENDER status Cirrhosis of liver with ascites, unspecified hepatic cirrhosis type (HCC) ALPHA FETOPROTEIN (AFP), Routine 10/24/2018 Awaiting organ transplant TUMOR MARKER 11:57 AM BEATER TENDER status Cancer screening Liver mass Cirrhosis of liver with ascites, unspecified hepatic cirrhosis type (HCC) BILIRUBIN, DIRECT Routine 10/03/2018 Awaiting organ transplant 11:09 AM BEATER TENDER status PROTHROMBIN TIME/INR Routine 10/03/2018 Awaiting organ transplant 11:09 AM BEATER TENDER status CBC W/PLT COUNT & AUTO Routine 10/03/2018 Awaiting organ transplant DIFFERENTIAL 11:09 AM BEATER TENDER status COMPREHENSIVE METABOLIC Routine 10/03/2018 Awaiting organ transplant PANEL 11:09 AM BEATER TENDER status (CELLAVISION MANUAL DIFF) Routine 09/05/2018 Awaiting organ transplant 1:31 PM BEATER TENDER status CBC W/PLT COUNT & AUTO Routine 09/05/2018 Awaiting organ transplant DIFFERENTIAL 1:31 PM BEATER TENDER status PROTHROMBIN TIME/INR Routine 09/05/2018 Awaiting organ transplant 1:31 PM BEATER TENDER status COMPREHENSIVE METABOLIC Routine 09/05/2018 Awaiting organ transplant PANEL 1:31 PM BEATER TENDER status CBC W/PLT COUNT & AUTO Routine 09/05/2018 Awaiting organ transplant DIFFERENTIAL 1:31 PM BEATER TENDER status BILIRUBIN, DIRECT Routine 09/05/2018 Awaiting organ transplant 1:31 PM BEATER TENDER status MR ABDOMEN WITH/WITHOUT Routine 09/05/2018 Awaiting organ transplant IV CONTRAST 1:21 PM BEATER TENDER status Cirrhosis of liver without ascites, unspecified hepatic cirrhosis type (HCC) POCT-CREATININE Routine 09/05/2018 12:48 PM BEATER TENDER XR DXA BONE DENSITY STUDY Routine 07/25/2018 Screening for 12:59 PM BEATER TENDER endocrine/metabolic/immun ity disorders CBC W/PLT COUNT & AUTO Routine 07/25/2018 Awaiting organ transplant DIFFERENTIAL 12:20 PM BEATER TENDER status CBC W/PLT COUNT & AUTO Routine 07/25/2018 Awaiting organ transplant DIFFERENTIAL 12:20 PM BEATER TENDER status PROTHROMBIN TIME/INR Routine 07/25/2018 Awaiting organ transplant 12:19 PM BEATER TENDER status COMPREHENSIVE METABOLIC Routine 07/25/2018 Awaiting organ transplant PANEL 12:19 PM BEATER TENDER status BILIRUBIN, DIRECT Routine 07/25/2018 Awaiting organ transplant 12:19 PM BEATER TENDER status ALPHA FETOPROTEIN (AFP), Routine 07/25/2018 Awaiting organ transplant TUMOR MARKER 12:19 PM BEATER TENDER status Cancer screening ED ECG INTERPRETATION Routine [...] transplant TUMOR MARKER 9:46 AM CDT status after 12/19/2017 Results * RHYTHM STRIP - SCAN (12/12/2018 3:31 PM CDT) Narrative Performed At * TRANSFUSION SERVICE REPORT - SCAN (12/11/2018 6:01 PM CDT) Only the most recent of 6 results within the time period is included. Narrative Performed At * CBC with platelet count + automated diff (12/11/2018 6:41 AM CDT) Only the most recent of 18 results within the time period is included. WBC 4.5 3.5 - 10.5 K/L [facility] RBC 2.52 (L) 3.93 - 5.22 M/L [facility] Hemoglobin 8.9 (L) 11.2 - 15.7 GM/DL [facility] Hematocrit 26.4 (L) 34.1 - 44.9 % [facility] MCV 104.8 (H) 79.4 - 94.8 fL [facility] MCH 35.3 (H) 25.6 - 32.2 pg [facility] MCHC 33.7 32.2 - 35.5 GM/DL [facility] RDW 15.9 (H) 11.7 - 14.4 % [facility] Platelets 28 (L) 150 - 450 K/CU MM [facility] MPV 11.2 9.4 - 12.3 fL [facility] nRBC 0 0 - 0 /100 WBC [facility] % Neutros 64 % [facility] % Lymphs 19 % [facility] % Monos 15 % [facility] % Eos 1 % [facility] % Baso 1 % [facility] # Neutros 2.85 1.56 - 6.13 K/L [facility] # Lymphs 0.83 (L) 1.18 - 3.74 K/L [facility] # Monos 0.67 (H) 0.24 - 0.36 K/L [facility] # Eos 0.06 0.04 - 0.36 K/L [facility] # Baso 0.03 0.01 - 0.08 K/L [facility] Immature 1 0 - 1 % [facility] Granulocytes-Relative [facility] Specimen Blood Performing Organization Address City/[facility]/Zipcode Phone Number [facility] [address] [place] [address] [facility] * Prothrombin time/INR (12/11/2018 6:41 AM CDT) Only the most recent of 19 results within the time period is included. Protime 19.4 (H) 11.7 - 14.7 seconds [facility] INR 1.6 <=5.9 [facility] Specimen Blood Narrative Performed At RECOMMENDED COUMADIN/WARFARIN INR THERAPY RANGES [facility] STANDARD DOSE: 2.0 - 3.0 Includes: PROPHYLAXIS for venous thrombosis, [facility] systemic embolization; TREATMENT for venous thrombosis and/or pulmonary embolus. HIGH RISK: Target INR is 2.5-3.5 for patients with mechanical heart valves. Performing Organization Address City/[facility]/Zipcode Phone Number [facility] [address] [place] [address] [phone] * Hepatic function panel (12/11/2018 6:41 AM CDT) Only the most recent of 14 results within the time period is included. Protein, Total 8.2 6.0 - 8.3 gm/dL [facility] Albumin 2.5 (L) 3.5 - 5.0 g/dL [facility] Total Bilirubin 7.7 (H) 0.2 - 1.2 mg/dL [facility] Bilirubin, Direct 2.0 (H) 0.1 - 0.5 mg/dL [facility] Alkaline Phosphatase 142 40 - 150 U/L [facility] AST 61 (H) 5 - 34 U/L [facility] ALT 35 6 - 55 U/L [facility] Specimen Blood Narrative Performed At Specimen moderately icteric [facility] Performing Organization Address City/State/Zipcode Phone Number [facility] [address] [place] [address] [phone] [place] [address] * Basic metabolic panel (12/11/2018 6:41 AM CDT) Only the most recent of 14 results within the time period is included. Sodium 131 (L) 136 - 145 meq/L [facility] Potassium 4.5 3.5 - 5.1 meq/L [facility] Chloride 103 98 - 107 meq/L [facility] CO2 26 22 - 29 meq/L [facility] BUN 18 7 - 21 mg/dL [facility] Creatinine 0.62 0.57 - 1.25 mg/dL [facility] Glucose 106 (H) 70 - 105 mg/dL [facility] Calcium 8.5 8.4 - 10.2 mg/dL [facility] EGFR 101Comment: ESTIMATED GFR IS mL/min/1.73 sq m [facility] NOT ACCURATE CREATININE [facility] CLEARANCE IN PREDICTING GLOMERULAR FILTRATION RATE. ESTIMATED GFR IS NOT APPLICABLE FOR DIALYSIS PATIENTS. Specimen Blood Narrative Performed At Specimen moderately icteric [facility] [facility] Performing Organization Address City/State/Zipcode Phone Number [facility] [address] [place] [address] MEDICAL CENTER * Prepare Leuko-Red PLT (12/10/2018 11:54 PM CDT) Only the most recent of 5 results within the time period is included. Unit ABO O Pos SAF[place]ACE [place] UNIT NUMBER [id number] [place] Status TX_TIMEINCHART [place] Blood Bank Product PLATELETS [place]AF[place]ACE [place] PRODUCT CODE [id number] [place] Specimen Blood Performing Organization Address City/[facility] Phone Number [place] * Manual Differential (12/10/2018 4:19 AM CDT) Only the most recent of 3 results within the time period is included. % Neutros 78 % [facility] % Lymphs 8 % [facility] % Monos 13 % [facility] % Eos 1 % [facility] # Neutros 2.89 1.56 - 6.13 K/ul [facility] # Lymphs 0.30 (L) 1.18 - 3.74 K/ul [facility] # Monos 0.48 (H) 0.24 - 0.36 K/uL [facility] # Eos 0.04 0.04 - 0.36 K/uL [facility] Total Counted 100 [facility] Smudge Cells Present [facility] Giant Platelet Present [facility] Anisocytosis 1+ few [facility] Poikilocytes 1+ few [facility] Platelet Conc Decreased [facility] Specimen Blood Narrative Performed At Received comment: [facility] User comments: [facility] Slide comments: Performing Organization Address City/[facility] Services[facility] Phone Number [address] * Transfuse Leuko-Red PLT (12/09/2018 4:57 PM CDT) Only the most recent of 10 results within the time period is included. * Type and screen, automated (12/09/2018 11:28 AM CDT) Only the most recent of 2 results within the time period is included. Ab Scrn NEGATIVE [facility] Specimen Blood Performing Organization Address [facility] Services[facility] Phone Number [address] * ABORH, manual (12/09/2018 11:28 AM CDT) Only the most recent of 2 results within the time period is included. ABO Grouping A [facility] Rh Factor POS [facility] Specimen Blood Performing Organization Address [facility] Services[facility] Phone Number [address] * Lipase (12/09/2018 4:11 AM CDT) Only the most recent of 2 results within the time period is included. Lipase 27 8 - 78 U/L [facility] Specimen Blood Narrative Performed At Specimen moderately icteric [facility] Performing Organization Address [facility] Services[facility] Phone Number [address] * NM bone scan whole body (12/05/2018 3:31 PM CDT) Specimen Narrative Performed At FINAL REPORT [facility] [place] PROCEDURE: BONE SCAN, WHOLE BODY CPT CODE:[id number] INDICATION:Liver lesion, exclude metastatic disease. On liver transplant list. PROTOCOL:21.7 mCi of Tc-99m MDP was injected intravenously. Whole body and selected spot images were obtained approximately 3 hours later. FINDINGS: Tracer activity is minimally increased in the shoulders, knees, and feet. Otherwise tracer activity is physiological throughout the skeleton. IMPRESSION: 1.No typical osseous metastatic pattern. 2.Findings above are suggestive of mild degenerative changes of the peripheral joints. Images for comparison/correlation were chest CT 12/04/2018, abdomen MRI 11/30/2018. Signed: David Candelario MD Report Verified Date/Time:12/05/2018 16:40:17 Reading Location: [address] Reading Room Procedure Note Interface, External Ris In - 12/05/2018 4:42 PM CDT FINAL REPORT PROCEDURE: BONE SCAN, WHOLE BODY CPT CODE: [id number] INDICATION: Liver lesion, exclude metastatic disease. On liver transplant list. PROTOCOL: 21.7 mCi of Tc-99m MDP was injected intravenously. Whole body and selected spot images were obtained approximately 3 hours later. FINDINGS: Tracer activity is minimally increased in the shoulders, knees, and feet. Otherwise tracer activity is physiological throughout the skeleton. IMPRESSION: 1.No typical osseous metastatic pattern. 2.Findings above are suggestive of mild degenerative changes of the peripheral joints. Images for comparison/correlation were chest CT 12/04/2018, abdomen MRI 11/30/2018. Signed: David Candelario MD Report Verified Date/Time: 12/05/2018 16:40:17 Reading Location: [address] Reading Room Performing Organization Address City/State/Zipcode Phone Number [facility] * CT chest without IV contrast (12/04/2018 9:18 PM CDT) Specimen Narrative Performed At FINAL REPORT [facility] CT scan of the chest. CLINICAL HISTORY: Liver lesion, exclude metastatic disease. COMPARISON STUDY: MRI dated November 29, 2018. TECHNIQUE: Contiguous helical slices were acquired through the thorax without the administration of contrast. This exam was performed according to our department dose optimization program which includes automated exposure control, adjustment of the mA and/or kV according to the patient's size and/or use of iterative reconstruction technique. FINDINGS: The mediastinum demonstrates no suspicious masses or adenopathy. Trace pericardial fluid is seen. A trace right pleural effusion is identified. There are large paraesophageal varices. The visualized portions of the upper abdomen demonstrate a nodular, cirrhotic appearing liver. Cholecystectomy clips are seen. The spleen is markedly enlarged. Mild ascites is seen. A dilated left gastric vein is seen. Cholecystectomy clips are noted. The tracheobronchial tree is clear with no endobronchial lesions. The pulmonary parenchyma demonstrates a 4 mm granuloma in the superior segment of the right lower lobe on image 20. No suspicious pulmonary nodules are seen. Bone windows demonstrate degenerative changes. IMPRESSION: 1. Trace right pleural effusion with adjacent atelectasis or consolidation. No suspicious pulmonary masses. 2. Upper abdominal findings as described above. There is extensive portal hypertension with large paraesophageal varices. Signed: Jacques Dewitt MD Report Verified Date/Time:12/04/2018 23:03:08 Reading Location: [address] Consult Reading Room Procedure Note Interface, External Ris In - 12/04/2018 11:05 PM CDT FINAL REPORT CT scan of the chest. CLINICAL HISTORY: Liver lesion, exclude metastatic disease. COMPARISON STUDY: MRI dated November 29, 2018. TECHNIQUE: Contiguous helical slices were acquired through the thorax without the administration of contrast. This exam was performed according to our department dose optimization program which includes automated exposure control, adjustment of the mA and/or kV according to the patient's size and/or use of iterative reconstruction technique. FINDINGS: The mediastinum demonstrates no suspicious masses or adenopathy. Trace pericardial fluid is seen. A trace right pleural effusion is identified. There are large paraesophageal varices. The visualized portions of the upper abdomen demonstrate a nodular, cirrhotic appearing liver. Cholecystectomy clips are seen. The spleen is markedly enlarged. Mild ascites is seen. A dilated left gastric vein is seen. Cholecystectomy clips are noted. The tracheobronchial tree is clear with no endobronchial lesions. The pulmonary parenchyma demonstrates a 4 mm granuloma in the superior segment of the right lower lobe on image 20. No suspicious pulmonary nodules are seen. Bone windows demonstrate degenerative changes. IMPRESSION: 1. Trace right pleural effusion with adjacent atelectasis or consolidation. No suspicious pulmonary masses. 2. Upper abdominal findings as described above. There is extensive portal hypertension with large paraesophageal varices. Signed: Jacques Dewitt MD Report Verified Date/Time: 12/04/2018 23:03:08 Reading Location: [facility] [id number] Consult Reading Room Performing Organization Address City/[facility] Services[facility] Phone Number [facility] * Hepatitis B Panel (12/03/2018 12:10 PM CDT) Hep B Core Total Ab REACTIVE (A) Nonreactive [facility] Hep B S Ab 841.0 (H) <8.0 mIU/mL [facility] hepatitis B Surface Ag NON-REACTIVE Nonreactive [facility] Specimen Blood Performing Organization Address [facility] Servicescomi Phone Number [address] * Hepatitis C antibody (12/03/2018 12:10 PM CDT) Hepatitis C Ab NON-REACTIVE Nonreactive [facility] Specimen Blood Performing Organization Address [facility] Services[facility] Phone Number [address] * Hepatitis B core antibody, total (12/03/2018 12:10 PM CDT) Hep B Core Total Ab REACTIVE (A) Nonreactive [facility] Specimen Blood Performing Organization Address [facility] Servicescom[facility] Phone Number [address] * Iron, TIBC, % sat. (without ferritin) (12/03/2018 4:09 AM CDT) Iron 183.0 (H) 40.0 - 160.0 ug/dL [facility] TIBC 179 (L) 250 - 450 ug/dL [facility] Iron % Saturation 102 (H) 20 - 55 % [facility] Specimen Blood Performing Organization Address City/[facility] Services[facility] Phone Number [address] * Folate, Serum (12/03/2018 4:09 AM CDT) Folate 11.8 >=7.0 ng/mL [facility] Specimen Blood Performing Organization Address City/[facility] Services[facility] Phone Number [address] * Ferritin (12/03/2018 4:09 AM CDT) Ferritin 124 5 - 275 ng/mL [facility] Specimen Blood Performing Organization Address [facility] Services[facility] Phone Number [address] * Vitamin B12 (12/03/2018 4:09 AM CDT) Vitamin B12 588 213 - 816 pg/mL [facility] Specimen Blood Performing Organization Address City/[facility] Services[facility] Phone Number [address] * Reticulocyte count (12/02/2018 5:33 AM CDT) % Retic 5.0 (H) 0.5 - 1.7 % [facility] Specimen Blood Performing Organization Address [facility] Servicescom[place] [address] [phone] [place] [address] * Hepatitis B PCR, quantitative (12/01/2018 5:39 AM CDT) HBV PCR, Quantitative HBV DNA not detected HBV DNA not detected [facility] Specimen Blood Narrative Performed At This test uses a Real-Time Polymerase Chain Reaction (RT-PCR) methodology and [facility] was performed using [employer] AmpliPrep/KIP TaqMan HBV Test, v2.0 ([employer] [facility] [employer] Reportable range for this assay is 20 - 170,000,000 IU per mL (1.30 - 8.23 Log IU/mL). Performing Organization Address [facility] Services[facility] Phone Number [address] * Hepatitis B core antibody, IgM (12/01/2018 5:39 AM CDT) Hep B C IgM NON-REACTIVE Nonreactive [facility] Specimen Blood Performing Organization Address City/[facility] Services[facility] Phone Number [address] * Phosphorus (12/01/2018 5:39 AM CDT) Only the most recent of 3 results within the time period is included. Phosphorus 4.1 2.3 - 4.7 mg/dL [facility] Specimen Blood Performing Organization Address City/[facility] Services[facility] Phone Number [address] * Magnesium (12/01/2018 5:39 AM CDT) Only the most recent of 3 results within the time period is included. Magnesium 1.5 (L) 1.6 - 2.6 mg/dL [facility] Specimen Blood Performing Organization Address [facility] Phone Number [address] * MR abdomen without & with IV contrast (11/30/2018 12:07 AM CDT) Only the most recent of 3 results within the time period is included. Specimen Narrative Performed At FINAL REPORT [place] TECHNIQUE: MRI of the abdomen WITHOUT and WITH intravenous contrast. INDICATION: Liver lesion, >1cm, liver disease with risk of hcc. COMPARISON: MRI from 09/05/2018. FINDINGS: LOWER THORAX: Unremarkable. LIVER: Nodular, cirrhotic liver. A minimally arterially cenhancing lesion in segment VIII measures 1.8 cm on venous phase image 70 and is unchanged in size. This is intrinsically hyperintense on T1-weighted imaging. This does washout and form a pseudocapsule. However, this could be due to degraded imaging from the ascites. BILIARY: Prior cholecystectomy. No biliary ductal dilatation or filling defect. SPLEEN: 16.7 cm splenomegaly. PANCREAS: No focal masses or ductal dilatation. ADRENALS: No adrenal nodules. KIDNEYS/URETERS: No hydronephrosis or solid mass lesions. PERITONEUM/RETROPERITONEUM: Moderate to large volume ascites. LYMPH NODES: No lymphadenopathy. VESSELS: Conventional hepatic arterial anatomy. Large esophageal varices. The main portal vein measures 1.4 cm. GI TRACT: No distention or wall thickening. BONES AND SOFT TISSUES: Unremarkable. IMPRESSION: 1.The segment VIII lesion likely minimally arterially enhances, washes out, and forms a pseudocapsule. This is consistent with hepatocellular carcinoma and measures 1.9 cm. 2.No metastatic disease in the abdomen. 3.Cirrhosis with sequelae of portal hypertension including moderate to large volume ascites, splenic, and large esophageal varices. Signed: Phillip Leonard MD Report Verified Date/Time:11/30/2018 07:35:42 Reading Location: [facility] Diagnostic Imaging Reading Room - [place] [id number] Procedure Note Interface, External Ris In - 11/30/2018 7:37 AM CDT FINAL REPORT TECHNIQUE: MRI of the abdomen WITHOUT and WITH intravenous contrast. INDICATION: Liver lesion, >1cm, liver disease with risk of hcc. COMPARISON: MRI from 09/05/2018. FINDINGS: LOWER THORAX: Unremarkable. LIVER: Nodular, cirrhotic liver. A minimally arterially cenhancing lesion in segment VIII measures 1.8 cm on venous phase image 70 and is unchanged in size. This is intrinsically hyperintense on T1-weighted imaging. This does washout and form a pseudocapsule. However, this could be due to degraded imaging from the ascites. BILIARY: Prior cholecystectomy. No biliary ductal dilatation or filling defect. SPLEEN: 16.7 cm splenomegaly. PANCREAS: No focal masses or ductal dilatation. ADRENALS: No adrenal nodules. KIDNEYS/URETERS: No hydronephrosis or solid mass lesions. PERITONEUM/RETROPERITONEUM: Moderate to large volume ascites. LYMPH NODES: No lymphadenopathy. VESSELS: Conventional hepatic arterial anatomy. Large esophageal varices. The main portal vein measures 1.4 cm. GI TRACT: No distention or wall thickening. BONES AND SOFT TISSUES: Unremarkable. IMPRESSION: 1.The segment VIII lesion likely minimally arterially enhances, washes out, and forms a pseudocapsule. This is consistent with hepatocellular carcinoma and measures 1.9 cm. 2.No metastatic disease in the abdomen. 3.Cirrhosis with sequelae of portal hypertension including moderate to large volume ascites, splenic, and large esophageal varices. Signed: Phillip Leonard MD Report Verified Date/Time: 11/30/2018 07:35:42 Reading Location: [facility] Diagnostic Imaging Reading Room - [place] [address] [id number] Performing Organization Address [facility]/Zipcode Phone Number [facility] * PT/aPTT (11/29/2018 9:15 AM CDT) Protime 21.6 (H) 11.7 - 14.7 seconds [facility] INR 1.8 <=5.9 [facility] PTT 35.6 22.5 - 36.0 seconds [facility] Specimen Blood Narrative Performed At RECOMMENDED COUMADIN/WARFARIN INR THERAPY RANGES [facility] STANDARD DOSE: 2.0 - 3.0 Includes: PROPHYLAXIS for venous thrombosis, [facility] systemic embolization; TREATMENT for venous thrombosis and/or pulmonary embolus. HIGH RISK: Target INR is 2.5-3.5 for patients with mechanical heart valves. Performing Organization Address [facility] Servicescomi Phone Number [place] [phone] [place] [address] [facility] * Fibrinogen (11/29/2018 9:15 AM CDT) Fibrinogen 118 (L) 225 - 434 mg/dl [facility] Specimen Blood Performing Organization Address [facility] Services[facility] Phone Number [place] [phone] [place] [address] [facility] * D-dimer (11/29/2018 9:15 AM CDT) D-Dimer, Quant 13.03 (H) <0.50 MG/L FEU [facility] Specimen Blood Narrative Performed At Intended Use: The D-Dimer Assay can be used to aid in the diagnosis of Deep Vein [facility] Thrombosis (DVT) and Pulmonary Embolism Disease (PED). [facility] In patients with low pre-test probability, various studies concerning STA Liatest D-dimer test have reported that with a cutoff value of 0.50 MG/L FEU, the Negative Predictive Value (NPV) regarding the exclusion of thrombosis is within 95-100% range. Performing Organization Address City/[facility] Services[facility] Phone Number [address] * Peripheral Blood Smear - Hold only (11/29/2018 5:07 AM CDT) Peripheral Smear Save SAVE [facility] Specimen Blood Performing Organization Address [facility] Phone Number [address] * Alpha fetoprotein (AFP), tumor marker (10/24/2018 11:57 AM BEATER TENDER) Only the most recent of 3 results within the time period is included. Alpha-Fetoprotein 2.7 <10.0 ng/mL [facility] Specimen Blood Performing Organization Address [facility] Phone Number [address] * Bilirubin, direct (10/24/2018 11:57 AM BEATER TENDER) Only the most recent of 6 results within the time period is included. Bilirubin, Direct 2.4 (H) 0.1 - 0.5 mg/dL [facility] Specimen Blood Performing Organization Address [facility] Phone Number [address] * Comprehensive metabolic panel (10/24/2018 11:57 AM BEATER TENDER) Only the most recent of 6 results within the time period is included. Protein, Total 7.1 6.0 - 8.3 gm/dL [facility] Albumin 3.0 (L) 3.5 - 5.0 g/dL [facility] Alkaline Phosphatase 154 (H) 40 - 150 U/L [facility] Total Bilirubin 8.7 (H) 0.2 - 1.2 mg/dL [facility] Sodium 140 136 - 145 meq/L [facility] Potassium 4.3 3.5 - 5.1 meq/L [facility] Chloride 108 (H) 98 - 107 meq/L [facility] CO2 26 22 - 29 meq/L [facility] BUN 9 7 - 21 mg/dL [facility] Creatinine 0.54 (L) 0.57 - 1.25 mg/dL [facility] Glucose 98 70 - 105 mg/dL [facility] Calcium 9.1 8.4 - 10.2 mg/dL [facility] AST 63 (H) 5 - 34 U/L [facility] ALT 31 6 - 55 U/L [facility] EGFR 119Comment: ESTIMATED GFR IS mL/min/1.73 sq m [facility] NOT ACCURATE CREATININE [facility] CLEARANCE IN PREDICTING GLOMERULAR FILTRATION RATE. ESTIMATED GFR IS NOT APPLICABLE FOR DIALYSIS PATIENTS. Specimen Blood Narrative Performed At Specimen moderately icteric [facility] Performing Organization Address City/State/Zipcode Phone Number [facility] [address] [place] [address] MEDICAL CENTER * CBC with platelet count + automated diff (10/03/2018 11:09 AM BEATER TENDER) Only the most recent of 2 results [...] Performing Organization Information: Site ID: [id number] Name: [facility] Address: [address] [place] [id number] Director: Li Alvarenga Performing Organization Address City/State/Zipcode Phone Number [facility] [address] [place] [address] [facility] * POC-Creatinine (09/05/2018 12:48 PM BEATER TENDER) Only the most recent of 2 results within the time period is included. POC-Creatinine 0.4 (L)Comment: TESTED AT 0.6 - 1.3 mg/dL [address] [address] POC-EGFR 168 mL/min/1.73M2 [facility] Specimen Blood Performing Organization Address City/State/Zipcode Phone Number [address] [address] [facility] * XR dxa bone density study (07/25/2018 12:59 PM BEATER TENDER) Specimen Narrative Performed At FINAL REPORT [facility] Bone mineral density study 07/25/2018 at 1259. CLINICAL INDICATION: Osteoporosis. COMPARISON: None available FINDINGS: Evaluation of the left and right femoral necks and lumbar spine was performed utilizing a [employer] Advance bone densitometer. The left femoral neck [...] MD Report Verified Date/Time:07/25/2018 15:48:51 Reading Location: [facility] Radiology Reading Room Procedure Note Interface, External Ris In - 07/25/2018 3:51 PM BEATER TENDER FINAL REPORT Bone mineral density study 07/25/2018 at 1259. CLINICAL INDICATION: Osteoporosis. COMPARISON: None available FINDINGS: Evaluation of the left and right femoral necks and lumbar spine was performed utilizing a [employer] Advance bone densitometer. The left femoral neck [...] Report Verified Date/Time: 07/25/2018 15:48:51 Reading Location: [facility] Radiology Reading Room Performing Organization Address City/State/Zipcode Phone Number [facility] * ED ECG Interpretation (05/23/2018 1:18 PM [...] portable / bedside (05/23/2018 12:06 PM CDT) Specimen Narrative Performed At FINAL REPORT [facility] Chest one view INDICATION: Shortness of breath COMPARISON: 11/05/2016 IMPRESSION: Previously seen right upper lobe nodularity is not apparent on this study. There are coarsened interstitial markings. No focal consolidation, edema, pleural effusion, or pneumothorax is seen. The cardiomediastinal silhouette is unremarkable. The bones appear intact. Signed: Eric Velazquez MD Report Verified Date/Time:05/23/2018 12:16:57 Reading Location: [facility] Radiology Reading Room Procedure Note Interface, External [...] Reading Location: [facility] Reading Room Performing Organization Address City/[facility]/Zipcode Phone Number GE RIS * Troponin I (05/23/2018 11:17 AM CDT) Troponin I <0.01 0.00 - 0.03 ng/mL [facility] Specimen Blood Narrative Performed At Troponin I (TnI) levels must be interpreted in the context of the presenting [facility] symptoms and the clinical findings. Elevated TnI levels indicate myocardial [facility] damage, but are not specific for ischemic heart disease. Elevated TnI levels are seen in patients with other cardiac conditions (including myocarditis and congestive heart failure), and slight TnI elevations occur in patients with other conditions, including sepsis, renal failure, acidosis, acute neurological disease, and persistent tachyarrhythmia. Performing Organization Address [facility] Phone Number [address] * Creatine Kinase (CK), Total and MB (05/23/2018 11:17 AM CDT) Total CK 115 29 - 200 U/L [facility] CK-MB 1.5 0.0 - 6.6 ng/mL [facility] MB Relative Index 1.3 % [facility] Specimen Blood Narrative Performed At CK-MB Reference Range: [facility] <6.7Normal [facility] 6.7-10.0Borderline >10.0 Abnormal Performing Organization Address [facility] Phone Number [facility] [address] [place] [address] [phone] [place] [address] * ECG 12 lead (05/23/2018 10:42 AM CDT) Specimen Narrative Performed At Ventricular Rate 74 BPM GE MUSE Atrial Rate 74 BPM P-R Interval 154 ms QRS Duration 92 ms Q-T Interval 424 ms QTC Calculation(Bazett) 470 ms P [place] 45 degrees R [place] -20 degrees T [place] 68 degrees Normal sinus rhythm Possible Left atrial enlargement Left ventricular hypertrophy Abnormal ECG Confirmed by MD Vj, Chiquita ([id number]) on 05/23/2018 10:07:49 PM Procedure Note Interface, External Ris In - 05/23/2018 10:07 PM CDT Ventricular Rate 74 BPM Atrial Rate 74 BPM P-R Interval 154 ms QRS Duration 92 ms Q-T Interval 424 ms QTC Calculation(Bazett) 470 ms P [place] 45 degrees R [place] -20 degrees T [place] 68 degrees Normal sinus rhythm Possible Left atrial enlargement Left ventricular hypertrophy Abnormal ECG Confirmed by MD Vj, Chiquita ([id number]) on 05/23/2018 10:07:49 PM Performing Organization Address City/State/Zipcode Phone Number GE MUSE after 12/19/2017 Insurance Payer Benefit Subscriber ID Type Phone Address Plan / Group BLUE CROSS/BLUE SHIELD BCBS OS xxxxxxxxxxxxxxx PPO [phone] [id number] POS/PPO/[place] [address] O CARE IMPROVEMENT MEDICARE CARE xxxxxxxxx MGD CARE IMPROVEMEN T PLUS Advance Directives For more information, please contact: [facility] [address] [place] [address] Date Inactivated Comments Code Status Date Activated 12/11/2018 5:15 PM Full Code 11/29/2018 3:39 AM This code status was determined by: Patient 04/27/2016 4:08 PM Full Code 04/27/2016 6:18 AM This code status was determined by: Patient
--- OUTSIDE RECORDS SUMMARY | 2018-12-20 11:07 | XMS REPORT ---
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 Allergies, Adverse Reactions, Alerts Allergy Name Allergy Type Status Severity Reaction(s) Onset Date Inactive Date Treating Clinician Comments iodine DA Active U 2018-08-01 00:00:00 iodine DA Active U 2018-07-31 00:00:00 vancomycin DA Active SV 2018-07-31 00:00:00 iodine DA Active U 2018-04-11 00:00:00 vancomycin DA Active SV 2018-04-11 00:00:00 iodine DA Active U 2017-06-25 00:00:00 Medications This patient has no known medications. Results Test Description Test Time Test Comments Text Results Atomic Results Result Comments BASIC METABOLIC PANEL 2018-12-11 07:29:00 SODIUM (BEAKER) (test pwsp=653) 131 meq/L 136-145 POTASSIUM (BEAKER) (test oolf=920) 4.5 meq/L 3.5-5.1 CHLORIDE (BEAKER) (test pgpp=739) 103 meq/L 98-107 CO2 (BEAKER) (test aure=084) 26 meq/L 22-29 BLOOD UREA NITROGEN (BEAKER) (test kjig=371) 18 mg/dL 7-21 CREATININE (BEAKER) (test tauf=289) 0.62 mg/dL 0.57-1.25 GLUCOSE RANDOM (BEAKER) (test vnjm=732) 106 mg/dL 70-105 CALCIUM (BEAKER) (test xvei=965) 8.5 mg/dL 8.4-10.2 EGFR (BEAKER) (test vsfc=1114) 101 mL/min/1.73 sq m ESTIMATED GFR IS NOT ACCURATE CREATININE CLEARANCE IN PREDICTING GLOMERULAR FILTRATION RATE. ESTIMATED GFR IS NOT APPLICABLE FOR DIALYSIS PATIENTS. Specimen moderately ictericHEPATIC FUNCTION [id number] 07:29:00* Test Item Value Reference Range Comments TOTAL PROTEIN (BEAKER) (test thbp=664) 8.2 gm/dL 6.0-8.3 ALBUMIN (BEAKER) (test gjsr=2306) 2.5 g/dL 3.5-5.0 BILIRUBIN TOTAL (BEAKER) (test hzsf=494) 7.7 mg/dL 0.2-1.2 BILIRUBIN DIRECT (BEAKER) (test fccb=884) 2.0 mg/dL 0.1-0.5 ALKALINE PHOSPHATASE (BEAKER) (test sabb=792) 142 U/L 40-150 AST (SGOT) (BEAKER) (test nflz=742) 61 U/L 5-34 ALT (SGPT) (BEAKER) (test ptxb=251) 35 U/L 6-55 Specimen moderately ictericPROTHROMBIN [id number] 06:58:00* Test Item Value Reference Range Comments PROTIME (BEAKER) (test fejr=118) 19.4 seconds 11.7-14.7 INR (BEAKER) (test tsnv=333) 1.6 <=5.9 RECOMMENDED COUMADIN/WARFARIN INR THERAPY RANGESSTANDARD DOSE: 2.0 - 3.0 Inclu tiffanie: PROPHYLAXIS for venous thrombosis, systemic embolization; TREATMENT for hugo ous thrombosis and/or pulmonary embolus.HIGH RISK: Target INR is 2.5-3.5 for pat ients with mechanical heart valves.CBC W/PLT COUNT & AUTO [id number] 06:55:00* Test Item Value Reference Range Comments WHITE BLOOD CELL COUNT (BEAKER) (test bycg=478) 4.5 K/ L 3.5-10.5 RED BLOOD CELL COUNT (BEAKER) (test aofp=577) 2.52 M/ L 3.93-5.22 HEMOGLOBIN (BEAKER) (test zaup=130) 8.9 GM/DL 11.2-15.7 HEMATOCRIT (BEAKER) (test dopo=913) 26.4 % 34.1-44.9 MEAN CORPUSCULAR VOLUME (BEAKER) (test cced=771) 104.8 fL 79.4-94.8 MEAN CORPUSCULAR HEMOGLOBIN (BEAKER) (test sotc=506) 35.3 pg 25.6-32.2 MEAN CORPUSCULAR HEMOGLOBIN CONC (BEAKER) (test kwvb=894) 33.7 GM/DL 32.2-35.5 RED CELL DISTRIBUTION WIDTH (BEAKER) (test imxm=415) 15.9 % 11.7-14.4 PLATELET COUNT (BEAKER) (test pdst=568) 28 K/CU MM 150-450 MEAN PLATELET VOLUME (BEAKER) (test jlgq=606) 11.2 fL 9.4-12.3 NUCLEATED RED BLOOD CELLS (BEAKER) (test ujni=045) 0 /100 WBC 0-0 NEUTROPHILS RELATIVE PERCENT (BEAKER) (test oclj=089) 64 % LYMPHOCYTES RELATIVE PERCENT (BEAKER) (test byxv=186) 19 % MONOCYTES RELATIVE PERCENT (BEAKER) (test uadd=397) 15 % EOSINOPHILS RELATIVE PERCENT (BEAKER) (test ykyc=129) 1 % BASOPHILS RELATIVE PERCENT (BEAKER) (test lqzs=568) 1 % NEUTROPHILS ABSOLUTE COUNT (BEAKER) (test rbtq=757) 2.85 K/ L 1.56-6.13 LYMPHOCYTES ABSOLUTE COUNT (BEAKER) (test mrqe=952) 0.83 K/ L 1.18-3.74 MONOCYTES ABSOLUTE COUNT (BEAKER) (test niki=682) 0.67 K/ L 0.24-0.36 EOSINOPHILS ABSOLUTE COUNT (BEAKER) (test pfdz=378) 0.06 K/ L 0.04-0.36 BASOPHILS ABSOLUTE COUNT (BEAKER) (test cccs=971) 0.03 K/ L 0.01-0.08 IMMATURE GRANULOCYTES-RELATIVE PERCENT (BEAKER) (test wvar=2260) 1 % 0-1 CBC W/PLT COUNT & AUTO [id number] 08:38:00* Test Item Value Reference Range Comments WHITE BLOOD CELL COUNT (BEAKER) (test kcjl=182) 3.7 K/ L 3.5-10.5 RED BLOOD CELL COUNT (BEAKER) (test cdin=249) 2.49 M/ L 3.93-5.22 HEMOGLOBIN (BEAKER) (test nhvs=174) 8.7 GM/DL 11.2-15.7 HEMATOCRIT (BEAKER) (test fdqd=621) 26.5 % 34.1-44.9 MEAN CORPUSCULAR VOLUME (BEAKER) (test zkfk=589) 106.4 fL 79.4-94.8 MEAN CORPUSCULAR HEMOGLOBIN (BEAKER) (test soha=136) 34.9 pg 25.6-32.2 MEAN CORPUSCULAR HEMOGLOBIN CONC (BEAKER) (test egey=185) 32.8 GM/DL 32.2-35.5 RED CELL DISTRIBUTION WIDTH (BEAKER) (test zifa=428) 15.7 % 11.7-14.4 PLATELET COUNT (BEAKER) (test jytp=515) 23 K/CU MM 150-450 Discordant PLT results compared to previous results; clinical correlation required. MEAN PLATELET VOLUME (BEAKER) (test gzxa=014) 12.2 fL 9.4-12.3 NUCLEATED RED BLOOD CELLS (BEAKER) (test bxlr=000) 0 /100 WBC 0-0 (CELLAVISION MANUAL DIFF)2018-12-10 08:38:00* Test Item Value Reference Range Comments NEUTROPHILS - REL (CELLAVISION)(BEAKER) (test bamz=5619) 78 % LYMPHOCYTES - REL (CELLAVISION)(BEAKER) (test jogw=7901) 8 % MONOCYTES - REL (CELLAVISION)(BEAKER) (test tunf=9185) 13 % EOSINOPHILS - REL (CELLAVISION)(BEAKER) (test wraf=1079) 1 % NEUTROPHILS - ABS (CELLAVISION)(BEAKER) (test tkwr=8745) 2.89 K/ul 1.56-6.13 LYMPHOCYTES - ABS (CELLAVISION)(BEAKER) (test szzv=1125) 0.30 K/ul 1.18-3.74 MONOCYTES - ABS (CELLAVISION)(BEAKER) (test pynh=3319) 0.48 K/uL 0.24-0.36 EOSINOPHILS - ABS (CELLAVISION)(BEAKER) (test pqop=3988) 0.04 K/uL 0.04-0.36 TOTAL COUNTED (BEAKER) (test melj=9243) 100 SMUDGE CELLS (BEAKER) (test whtc=2719) Present GIANT PLATELETS (BEAKER) (test anit=099) Present ANISOCYTOSIS (BEAKER) (test jhjs=249) 1+ few POIKILOCYTES (BEAKER) (test idpz=360) 1+ few PLATELET CONCENTRATION (CELLAVISION)(BEAKER) (test ncob=6826) Decreased Received comment: User comments: Slide comments: BASIC METABOLIC [id number] 05:33:00* Test Item Value Reference Range Comments SODIUM (BEAKER) (test fncx=043) 132 meq/L 136-145 POTASSIUM (BEAKER) (test kmrh=956) 4.2 meq/L 3.5-5.1 CHLORIDE (BEAKER) (test okpw=089) 102 meq/L 98-107 CO2 (BEAKER) (test xbsd=572) 26 meq/L 22-29 BLOOD UREA NITROGEN (BEAKER) (test ipgn=445) 18 mg/dL 7-21 CREATININE (BEAKER) (test bwnl=920) 0.71 mg/dL 0.57-1.25 GLUCOSE RANDOM (BEAKER) (test zbfe=686) 105 mg/dL 70-105 CALCIUM (BEAKER) (test kroj=046) 8.5 mg/dL 8.4-10.2 EGFR (BEAKER) (test cihd=7963) 87 mL/min/1.73 sq m ESTIMATED GFR IS NOT ACCURATE CREATININE CLEARANCE IN PREDICTING GLOMERULAR FILTRATION RATE. ESTIMATED GFR IS NOT APPLICABLE FOR DIALYSIS PATIENTS. Specimen moderately ictericHEPATIC FUNCTION [id number] 05:33:00* Test Item Value Reference Range Comments TOTAL PROTEIN (BEAKER) (test wrzn=450) 8.3 gm/dL 6.0-8.3 ALBUMIN (BEAKER) (test qdpn=8187) 2.6 g/dL 3.5-5.0 BILIRUBIN TOTAL (BEAKER) (test epoz=958) 7.2 mg/dL 0.2-1.2 BILIRUBIN DIRECT (BEAKER) (test jtux=543) 1.9 mg/dL 0.1-0.5 ALKALINE PHOSPHATASE (BEAKER) (test wkbx=656) 129 U/L 40-150 AST (SGOT) (BEAKER) (test dlps=509) 59 U/L 5-34 ALT (SGPT) (BEAKER) (test tvem=474) 33 U/L 6-55 Specimen moderately ictericPROTHROMBIN [id number] 05:30:00* Test Item Value Reference Range Comments PROTIME (BEAKER) (test xvyj=143) 19.7 seconds 11.7-14.7 INR (BEAKER) (test qddi=230) 1.6 <=5.9 RECOMMENDED COUMADIN/WARFARIN INR THERAPY RANGESSTANDARD DOSE: 2.0 - 3.0 Inclu tiffanie: PROPHYLAXIS for venous thrombosis, systemic embolization; TREATMENT for hugo ous thrombosis and/or pulmonary embolus.HIGH RISK: Target INR is 2.5-3.5 for pat ients with mechanical heart valves.CBC W/PLT COUNT & AUTO [id number] 14:41:00* Test Item Value Reference Range Comments WHITE BLOOD CELL COUNT (BEAKER) (test sphp=594) 3.3 K/ L 3.5-10.5 RED BLOOD CELL COUNT (BEAKER) (test imre=665) 2.62 M/ L 3.93-5.22 HEMOGLOBIN (BEAKER) (test kdmg=556) 9.1 GM/DL 11.2-15.7 HEMATOCRIT (BEAKER) (test uvhr=047) 28.0 % 34.1-44.9 MEAN CORPUSCULAR VOLUME (BEAKER) (test semg=019) 106.9 fL 79.4-94.8 MEAN CORPUSCULAR HEMOGLOBIN (BEAKER) (test eblp=192) 34.7 pg 25.6-32.2 MEAN CORPUSCULAR HEMOGLOBIN CONC (BEAKER) (test ehjw=537) 32.5 GM/DL 32.2-35.5 RED CELL DISTRIBUTION WIDTH (BEAKER) (test masj=002) 15.9 % 11.7-14.4 PLATELET COUNT (BEAKER) (test dbbl=287) 8 K/CU MM 150-450 MEAN PLATELET VOLUME (BEAKER) (test sblm=981) 14.8 fL 9.4-12.3 NUCLEATED RED BLOOD CELLS (BEAKER) (test ocue=306) 0 /100 WBC 0-0 (CELLAVISION MANUAL DIFF)2018-12-09 14:41:00* Test Item Value Reference Range Comments NEUTROPHILS - REL (CELLAVISION)(BEAKER) (test mfdg=8768) 75 % LYMPHOCYTES - REL (CELLAVISION)(BEAKER) (test dsyw=3118) 11 % MONOCYTES - REL (CELLAVISION)(BEAKER) (test rxds=9270) 10 % BASOPHILS - REL (CELLAVISION)(BEAKER) (test lwvl=1836) 1 % BANDS - REL (CELLAVISION)(BEAKER) (test ojmn=9362) 3 % 0-10 NEUTROPHILS - ABS (CELLAVISION)(BEAKER) (test uprh=4787) 2.48 K/ul 1.56-6.13 LYMPHOCYTES - ABS (CELLAVISION)(BEAKER) (test webf=4499) 0.36 K/ul 1.18-3.74 MONOCYTES - ABS (CELLAVISION)(BEAKER) (test dblk=4813) 0.33 K/uL 0.24-0.36 BASOPHILS - ABS (CELLAVISION)(BEAKER) (test zfpm=1811) 0.03 K/uL 0.01-0.08 BANDS - ABS (CELLAVISION)(BEAKER) (test mbcv=9406) 0.10 K/uL 0.00-0.80 TOTAL COUNTED (BEAKER) (test leqx=8031) 100 WBC MORPHOLOGY (BEAKER) (test hood=882) Normal GIANT PLATELETS (BEAKER) (test abny=908) Present POLYCHROMATOPHILLIC RBCS(BEAKER) (test fmhg=310) 1+ few HYPOCHROMIA (BEAKER) (test ugwu=368) 2+ moderate ANISOCYTOSIS (BEAKER) (test xsaa=417) 1+ few MICROCYTES (BEAKER) (test tlue=587) 2+ moderate MACROCYTES (BEAKER) (test meur=883) 2+ moderate POIKILOCYTES (BEAKER) (test kwgy=497) 1+ few OVALOCYTES (BEAKER) (test yymm=802) 1+ few TEAR DROP CELLS (BEAKER) (test zygm=637) 1+ few ARTIFACT (CELLAVISION)(BEAKER) (test qmny=3314) Present PLATELET CONCENTRATION (CELLAVISION)(BEAKER) (test eisn=6370) Decreased Received comment: User comments: Slide comments: [id number] 09:12:00* Test Item Value Reference Range Comments LIPASE (BEAKER) (test efkn=437) 27 U/L 8-78 Specimen moderately ictericBASIC METABOLIC [id number] 08:08:00* Test Item Value Reference Range Comments SODIUM (BEAKER) (test hjkp=006) 131 meq/L 136-145 POTASSIUM (BEAKER) (test vwtm=872) 4.4 meq/L 3.5-5.1 CHLORIDE (BEAKER) (test kagw=905) 101 meq/L 98-107 CO2 (BEAKER) (test lnbf=552) 24 meq/L 22-29 BLOOD UREA NITROGEN (BEAKER) (test qgis=211) 18 mg/dL 7-21 CREATININE (BEAKER) (test iirf=552) 0.74 mg/dL 0.57-1.25 GLUCOSE RANDOM (BEAKER) (test bjly=623) 109 mg/dL 70-105 CALCIUM (BEAKER) (test sdij=364) 8.3 mg/dL 8.4-10.2 EGFR (BEAKER) (test jtay=5821) 83 mL/min/1.73 sq m ESTIMATED GFR IS NOT ACCURATE CREATININE CLEARANCE IN PREDICTING GLOMERULAR FILTRATION RATE. ESTIMATED GFR IS NOT APPLICABLE FOR DIALYSIS PATIENTS. Specimen moderately ictericHEPATIC FUNCTION [id number] 08:08:00* Test Item Value Reference Range Comments TOTAL PROTEIN (BEAKER) (test jjyv=678) 8.3 gm/dL 6.0-8.3 ALBUMIN (BEAKER) (test aefu=1584) 2.5 g/dL 3.5-5.0 BILIRUBIN TOTAL (BEAKER) (test sovd=789) 6.0 mg/dL 0.2-1.2 BILIRUBIN DIRECT (BEAKER) (test cvuo=589) 1.8 mg/dL 0.1-0.5 ALKALINE PHOSPHATASE (BEAKER) (test zzqz=554) 141 U/L 40-150 AST (SGOT) (BEAKER) (test nszc=059) 56 U/L 5-34 ALT (SGPT) (BEAKER) (test uiao=257) 29 U/L 6-55 Specimen moderately ictericPROTHROMBIN [id number] 05:02:00* Test Item Value Reference Range Comments PROTIME (BEAKER) (test meki=872) 20.0 seconds 11.7-14.7 INR (BEAKER) (test ugfg=313) 1.7 <=5.9 RECOMMENDED COUMADIN/WARFARIN INR THERAPY RANGESSTANDARD DOSE: 2.0 - 3.0 Inclu tiffanie: PROPHYLAXIS for venous thrombosis, systemic embolization; TREATMENT for hugo ous thrombosis and/or pulmonary embolus.HIGH RISK: Target INR is 2.5-3.5 for pat ients with mechanical heart valves.CBC W/PLT COUNT & AUTO [id number] 06:39:00* Test Item Value Reference Range Comments WHITE BLOOD CELL COUNT (BEAKER) (test hupr=147) 3.3 K/ L 3.5-10.5 RED BLOOD CELL COUNT (BEAKER) (test ejui=244) 2.35 M/ L 3.93-5.22 HEMOGLOBIN (BEAKER) (test ueww=432) 8.3 GM/DL 11.2-15.7 HEMATOCRIT (BEAKER) (test rugn=528) 25.1 % 34.1-44.9 MEAN CORPUSCULAR VOLUME (BEAKER) (test kbre=476) 106.8 fL 79.4-94.8 MEAN CORPUSCULAR HEMOGLOBIN (BEAKER) (test xuym=264) 35.3 pg 25.6-32.2 MEAN CORPUSCULAR HEMOGLOBIN CONC (BEAKER) (test vtgm=414) 33.1 GM/DL 32.2-35.5 RED CELL DISTRIBUTION WIDTH (BEAKER) (test jlxg=038) 15.6 % 11.7-14.4 PLATELET COUNT (BEAKER) (test colk=026) 11 K/CU MM 150-450 MEAN PLATELET VOLUME (BEAKER) (test gnjg=806) fL 9.4-12.3 Unable to report due to abnormal Platelet population distribution. NUCLEATED RED BLOOD CELLS (BEAKER) (test hdam=189) 0 /100 WBC 0-0 NEUTROPHILS RELATIVE PERCENT (BEAKER) (test cccb=335) 60 % LYMPHOCYTES RELATIVE PERCENT (BEAKER) (test saai=858) 14 % MONOCYTES RELATIVE PERCENT (BEAKER) (test fzam=597) 24 % EOSINOPHILS RELATIVE PERCENT (BEAKER) (test nkhu=520) 1 % BASOPHILS RELATIVE PERCENT (BEAKER) (test hpvg=070) 0 % NEUTROPHILS ABSOLUTE COUNT (BEAKER) (test hqmx=124) 1.96 K/ L 1.56-6.13 LYMPHOCYTES ABSOLUTE COUNT (BEAKER) (test mpwf=557) 0.45 K/ L 1.18-3.74 MONOCYTES ABSOLUTE COUNT (BEAKER) (test jbvk=115) 0.79 K/ L 0.24-0.36 EOSINOPHILS ABSOLUTE COUNT (BEAKER) (test gdww=438) 0.03 K/ L 0.04-0.36 BASOPHILS ABSOLUTE COUNT (BEAKER) (test luum=084) 0.01 K/ L 0.01-0.08 IMMATURE GRANULOCYTES-RELATIVE PERCENT (BEAKER) (test gbbg=8870) 1 % 0-1 BASIC METABOLIC [id number] 06:14:00* Test Item Value Reference Range Comments SODIUM (BEAKER) (test jrax=114) 130 meq/L 136-145 POTASSIUM (BEAKER) (test buxx=256) 3.9 meq/L 3.5-5.1 CHLORIDE (BEAKER) (test hjdb=708) 101 meq/L 98-107 CO2 (BEAKER) (test oqrh=983) 25 meq/L 22-29 BLOOD UREA NITROGEN (BEAKER) (test xnck=672) 17 mg/dL 7-21 CREATININE (BEAKER) (test zsbc=967) 0.74 mg/dL 0.57-1.25 GLUCOSE RANDOM (BEAKER) (test fqht=015) 122 mg/dL 70-105 CALCIUM (BEAKER) (test lnuw=972) 8.2 mg/dL 8.4-10.2 EGFR (BEAKER) (test qmmz=2477) 83 mL/min/1.73 sq m ESTIMATED GFR IS NOT ACCURATE CREATININE CLEARANCE IN PREDICTING GLOMERULAR FILTRATION RATE. ESTIMATED GFR IS NOT APPLICABLE FOR DIALYSIS PATIENTS. Specimen moderately ictericHEPATIC FUNCTION [id number] 06:14:00* Test Item Value Reference Range Comments TOTAL PROTEIN (BEAKER) (test fmnu=993) 7.8 gm/dL 6.0-8.3 ALBUMIN (BEAKER) (test irbb=6181) 2.4 g/dL 3.5-5.0 BILIRUBIN TOTAL (BEAKER) (test pyjd=400) 6.1 mg/dL 0.2-1.2 BILIRUBIN DIRECT (BEAKER) (test tsxr=997) 1.8 mg/dL 0.1-0.5 ALKALINE PHOSPHATASE (BEAKER) (test kiak=215) 120 U/L 40-150 AST (SGOT) (BEAKER) (test hxcn=612) 52 U/L 5-34 ALT (SGPT) (BEAKER) (test giak=859) 29 U/L 6-55 Specimen moderately ictericPROTHROMBIN [id number] 05:57:00* Test Item Value Reference Range Comments PROTIME (BEAKER) (test hvqe=066) 20.0 seconds 11.7-14.7 INR (BEAKER) (test yfuj=352) 1.7 <=5.9 RECOMMENDED COUMADIN/WARFARIN INR THERAPY RANGESSTANDARD DOSE: 2.0 - 3.0 Inclu tiffanie: PROPHYLAXIS for venous thrombosis, systemic embolization; TREATMENT for hugo ous thrombosis and/or pulmonary embolus.HIGH RISK: Target INR is 2.5-3.5 for pat ients with mechanical heart valves.BASIC METABOLIC [id number] 08:05:00* Test Item Value Reference Range Comments SODIUM (BEAKER) (test umjk=238) 131 meq/L 136-145 POTASSIUM (BEAKER) (test sotv=091) 4.4 meq/L 3.5-5.1 CHLORIDE (BEAKER) (test eyeu=802) 103 meq/L 98-107 CO2 (BEAKER) (test qpzf=135) 24 meq/L 22-29 BLOOD UREA NITROGEN (BEAKER) (test fcux=350) 18 mg/dL 7-21 CREATININE (BEAKER) (test ywkg=916) 0.63 mg/dL 0.57-1.25 GLUCOSE RANDOM (BEAKER) (test mmpg=661) 92 mg/dL 70-105 CALCIUM (BEAKER) (test mqlc=067) 8.3 mg/dL 8.4-10.2 EGFR (BEAKER) (test yhoo=5430) 100 mL/min/1.73 sq m ESTIMATED GFR IS NOT ACCURATE CREATININE CLEARANCE IN PREDICTING GLOMERULAR FILTRATION RATE. ESTIMATED GFR IS NOT APPLICABLE FOR DIALYSIS PATIENTS. Specimen moderately ictericHEPATIC FUNCTION [id number] 08:05:00* Test Item Value Reference Range Comments TOTAL PROTEIN (BEAKER) (test dqcg=121) 7.7 gm/dL 6.0-8.3 ALBUMIN (BEAKER) (test fzxh=5880) 2.4 g/dL 3.5-5.0 BILIRUBIN TOTAL (BEAKER) (test rlyo=473) 5.8 mg/dL 0.2-1.2 BILIRUBIN DIRECT (BEAKER) (test tndb=530) 1.8 mg/dL 0.1-0.5 ALKALINE PHOSPHATASE (BEAKER) (test srjd=627) 132 U/L 40-150 AST (SGOT) (BEAKER) (test yfis=982) 58 U/L 5-34 ALT (SGPT) (BEAKER) (test uife=541) 32 U/L 6-55 Specimen moderately ictericCBC W/PLT COUNT & AUTO [id number] 07:59:00* Test Item Value Reference Range Comments WHITE BLOOD CELL COUNT (BEAKER) (test rjvm=784) 3.4 K/ L 3.5-10.5 RED BLOOD CELL COUNT (BEAKER) (test lbey=717) 2.56 M/ L 3.93-5.22 HEMOGLOBIN (BEAKER) (test tojv=924) 9.1 GM/DL 11.2-15.7 HEMATOCRIT (BEAKER) (test rdpw=400) 27.6 % 34.1-44.9 MEAN CORPUSCULAR VOLUME (BEAKER) (test kitc=364) 107.8 fL 79.4-94.8 MEAN CORPUSCULAR HEMOGLOBIN (BEAKER) (test jyfx=410) 35.5 pg 25.6-32.2 MEAN CORPUSCULAR HEMOGLOBIN CONC (BEAKER) (test igmr=805) 33.0 GM/DL 32.2-35.5 RED CELL DISTRIBUTION WIDTH (BEAKER) (test ujwn=242) 15.7 % 11.7-14.4 PLATELET COUNT (BEAKER) (test vfik=224) 7 K/CU MM 150-450 MEAN PLATELET VOLUME (BEAKER) (test psmi=935) 12.9 fL 9.4-12.3 NUCLEATED RED BLOOD CELLS (BEAKER) (test hyvd=577) 0 /100 WBC 0-0 NEUTROPHILS RELATIVE PERCENT (BEAKER) (test ygxh=857) 65 % LYMPHOCYTES RELATIVE PERCENT (BEAKER) (test knch=977) 14 % MONOCYTES RELATIVE PERCENT (BEAKER) (test qzib=493) 20 % EOSINOPHILS RELATIVE PERCENT (BEAKER) (test hglk=409) 1 % BASOPHILS RELATIVE PERCENT (BEAKER) (test zaja=739) 0 % NEUTROPHILS ABSOLUTE COUNT (BEAKER) (test omdn=960) 2.20 K/ L 1.56-6.13 LYMPHOCYTES ABSOLUTE COUNT (BEAKER) (test xalg=151) 0.46 K/ L 1.18-3.74 MONOCYTES ABSOLUTE COUNT (BEAKER) (test rvjc=246) 0.68 K/ L 0.24-0.36 EOSINOPHILS ABSOLUTE COUNT (BEAKER) (test hhhs=035) 0.03 K/ L 0.04-0.36 BASOPHILS ABSOLUTE COUNT (BEAKER) (test mcfo=200) 0.00 K/ L 0.01-0.08 IMMATURE GRANULOCYTES-RELATIVE PERCENT (BEAKER) (test uuvn=5950) 1 % 0-1 PROTHROMBIN [id number] 07:54:00* Test Item Value Reference Range Comments PROTIME (BEAKER) (test vukn=620) 20.1 seconds 11.7-14.7 INR (BEAKER) (test rtbj=389) 1.7 <=5.9 RECOMMENDED COUMADIN/WARFARIN INR THERAPY RANGESSTANDARD DOSE: 2.0 - 3.0 Inclu tiffanie: PROPHYLAXIS for venous thrombosis, systemic embolization; TREATMENT for hugo ous thrombosis and/or pulmonary embolus.HIGH RISK: Target INR is 2.5-3.5 for pat ients with mechanical heart valves.CBC W/PLT COUNT & AUTO [id number] 08:41:00* Test Item Value Reference Range Comments WHITE BLOOD CELL COUNT (BEAKER) (test cwcc=998) 3.9 K/ L 3.5-10.5 RED BLOOD CELL COUNT (BEAKER) (test xruk=419) 2.74 M/ L 3.93-5.22 HEMOGLOBIN (BEAKER) (test ytok=556) 9.8 GM/DL 11.2-15.7 HEMATOCRIT (BEAKER) (test odwu=607) 29.2 % 34.1-44.9 MEAN CORPUSCULAR VOLUME (BEAKER) (test zdpa=893) 106.6 fL 79.4-94.8 MEAN CORPUSCULAR HEMOGLOBIN (BEAKER) (test vwjj=182) 35.8 pg 25.6-32.2 MEAN CORPUSCULAR HEMOGLOBIN CONC (BEAKER) (test wook=967) 33.6 GM/DL 32.2-35.5 RED CELL DISTRIBUTION WIDTH (BEAKER) (test scor=874) 15.4 % 11.7-14.4 PLATELET COUNT (BEAKER) (test vdii=480) 3 K/CU MM 150-450 MEAN PLATELET VOLUME (BEAKER) (test kble=720) 13.5 fL 9.4-12.3 NUCLEATED RED BLOOD CELLS (BEAKER) (test ngqs=372) 0 /100 WBC 0-0 NEUTROPHILS RELATIVE PERCENT (BEAKER) (test frfu=404) 69 % LYMPHOCYTES RELATIVE PERCENT (BEAKER) (test hmsi=295) 11 % MONOCYTES RELATIVE PERCENT (BEAKER) (test sukr=013) 19 % EOSINOPHILS RELATIVE PERCENT (BEAKER) (test eskh=747) 1 % BASOPHILS RELATIVE PERCENT (BEAKER) (test noaf=641) 0 % NEUTROPHILS ABSOLUTE COUNT (BEAKER) (test qxda=044) 2.69 K/ L 1.56-6.13 LYMPHOCYTES ABSOLUTE COUNT (BEAKER) (test jgsb=008) 0.42 K/ L 1.18-3.74 MONOCYTES ABSOLUTE COUNT (BEAKER) (test evwn=519) 0.74 K/ L 0.24-0.36 EOSINOPHILS ABSOLUTE COUNT (BEAKER) (test xoup=871) 0.04 K/ L 0.04-0.36 BASOPHILS ABSOLUTE COUNT (BEAKER) (test ague=002) 0.00 K/ L 0.01-0.08 IMMATURE GRANULOCYTES-RELATIVE PERCENT (BEAKER) (test cpvo=2573) 1 % 0-1 BASIC METABOLIC [id number] 07:23:00* Test Item Value Reference Range Comments SODIUM (BEAKER) (test wkpk=740) 132 meq/L 136-145 POTASSIUM (BEAKER) (test mpzz=292) 4.3 meq/L 3.5-5.1 CHLORIDE (BEAKER) (test qxpi=432) 101 meq/L 98-107 CO2 (BEAKER) (test htgc=234) 27 meq/L 22-29 BLOOD UREA NITROGEN (BEAKER) (test gcvc=871) 14 mg/dL 7-21 CREATININE (BEAKER) (test yxgz=838) 0.63 mg/dL 0.57-1.25 GLUCOSE RANDOM (BEAKER) (test zvvp=020) 100 mg/dL 70-105 CALCIUM (BEAKER) (test wqfr=958) 8.0 mg/dL 8.4-10.2 EGFR (BEAKER) (test bknz=9094) 100 mL/min/1.73 sq m ESTIMATED GFR IS NOT ACCURATE CREATININE CLEARANCE IN PREDICTING GLOMERULAR FILTRATION RATE. ESTIMATED GFR IS NOT APPLICABLE FOR DIALYSIS PATIENTS. Specimen moderately ictericHEPATIC FUNCTION [id number] 07:23:00* Test Item Value Reference Range Comments TOTAL PROTEIN (BEAKER) (test ylko=498) 7.7 gm/dL 6.0-8.3 ALBUMIN (BEAKER) (test ekhj=3596) 2.4 g/dL 3.5-5.0 BILIRUBIN TOTAL (BEAKER) (test veem=952) 6.1 mg/dL 0.2-1.2 BILIRUBIN DIRECT (BEAKER) (test cifn=343) 1.8 mg/dL 0.1-0.5 ALKALINE PHOSPHATASE (BEAKER) (test uiwx=781) 137 U/L 40-150 AST (SGOT) (BEAKER) (test tbha=768) 52 U/L 5-34 ALT (SGPT) (BEAKER) (test cnrg=332) 32 U/L 6-55 Specimen moderately ictericPROTHROMBIN [id number] 07:10:00* Test Item Value Reference Range Comments PROTIME (BEAKER) (test piga=610) 20.6 seconds 11.7-14.7 INR (BEAKER) (test pghj=287) 1.8 <=5.9 RECOMMENDED COUMADIN/WARFARIN INR THERAPY RANGESSTANDARD DOSE: 2.0 - 3.0 Inclu tiffanie: PROPHYLAXIS for venous thrombosis, systemic embolization; TREATMENT for hugo ous thrombosis and/or pulmonary embolus.HIGH RISK: Target INR is 2.5-3.5 for pat ients with mechanical heart valves.BONE AND/OR JOINT IMAGING, WHOLE BODY 2018-12-05 16:40:00Referring: Dr. Jemal Woodson REPORT PROCEDURE: BONE SCAN, WHOLE BODY CPT CODE: 14098 INDICATION: Liver lesion, exclude metastatic disease. On liver transplant list. PROTOCOL: 21.7 mCi of Tc-99m MDP was injected intravenously. Whole body and selected spot images were obtained approximately 3 hours later. FINDINGS: Tracer activity is minimally increased in the shoulders, knees, and feet. Otherwise tracer activity is physiological throughout the ske leton. IMPRESSION: 1.No typical osseous metastatic pattern.2.Findings above ar e suggestive of mild degenerative changes of the peripheral joints. Images for c omparison/correlation were chest CT 12/04/2018, abdomen MRI 11/30/2018. Signed: Eyad Vaca rdeport Verified Date/Time: 12/05/2018 16:40:17 Reading Location: [address] Reading Room TITIS B PCR, [id number] 08:58:00* Test Item Value Reference Range Comments HBV RESULT COMPONENT (BEAKER) (test jrnq=0996) HBV DNA not detected HBV DNA not detected This test uses a Real-Time Polymerase Chain Reaction (RT-PCR) methodology and wa s performed using [employer] AmpliPrep/KIP TaqMan HBV Test, v2.0 ([employer]Reportable range for this assay is 20 - 170,000,000 IU per mL ( 1.30 - 8.23 Log IU/mL).BASIC METABOLIC [id number] 06:56:00* Test Item Value Reference Range Comments SODIUM (BEAKER) (test bmzi=311) 132 meq/L 136-145 POTASSIUM (BEAKER) (test kvov=006) 4.3 meq/L 3.5-5.1 CHLORIDE (BEAKER) (test cigr=390) 101 meq/L 98-107 CO2 (BEAKER) (test ifff=906) 26 meq/L 22-29 BLOOD UREA NITROGEN (BEAKER) (test obrr=595) 11 mg/dL 7-21 CREATININE (BEAKER) (test ewtj=897) 0.60 mg/dL 0.57-1.25 GLUCOSE RANDOM (BEAKER) (test zkzz=907) 77 mg/dL 70-105 CALCIUM (BEAKER) (test etlf=741) 8.5 mg/dL 8.4-10.2 EGFR (BEAKER) (test eryo=8273) 105 mL/min/1.73 sq m ESTIMATED GFR IS NOT ACCURATE CREATININE CLEARANCE IN PREDICTING GLOMERULAR FILTRATION RATE. ESTIMATED GFR IS NOT APPLICABLE FOR DIALYSIS PATIENTS. Specimen moderately ictericHEPATIC FUNCTION [id number] 06:56:00* Test Item Value Reference Range Comments TOTAL PROTEIN (BEAKER) (test qdqk=598) 7.7 gm/dL 6.0-8.3 ALBUMIN (BEAKER) (test hdit=5516) 2.3 g/dL 3.5-5.0 BILIRUBIN TOTAL (BEAKER) (test npml=352) 5.7 mg/dL 0.2-1.2 BILIRUBIN DIRECT (BEAKER) (test dazw=302) 1.9 mg/dL 0.1-0.5 ALKALINE PHOSPHATASE (BEAKER) (test jffv=403) 134 U/L 40-150 AST (SGOT) (BEAKER) (test mioo=078) 55 U/L 5-34 ALT (SGPT) (BEAKER) (test opvw=003) 36 U/L 6-55 Specimen moderately ictericCBC W/PLT COUNT & AUTO [id number] 06:48:00* Test Item Value Reference Range Comments WHITE BLOOD CELL COUNT (BEAKER) (test pvgu=068) 3.2 K/ L 3.5-10.5 RED BLOOD CELL COUNT (BEAKER) (test ecfh=401) 2.80 M/ L 3.93-5.22 HEMOGLOBIN (BEAKER) (test urgn=832) 10.0 GM/DL 11.2-15.7 HEMATOCRIT (BEAKER) (test pwqg=693) 30.3 % 34.1-44.9 MEAN CORPUSCULAR VOLUME (BEAKER) (test lpnq=030) 108.2 fL 79.4-94.8 MEAN CORPUSCULAR HEMOGLOBIN (BEAKER) (test kwii=780) 35.7 pg 25.6-32.2 MEAN CORPUSCULAR HEMOGLOBIN CONC (BEAKER) (test kwxj=746) 33.0 GM/DL 32.2-35.5 RED CELL DISTRIBUTION WIDTH (BEAKER) (test rknk=610) 14.9 % 11.7-14.4 PLATELET COUNT (BEAKER) (test phai=816) 7 K/CU MM 150-450 MEAN PLATELET VOLUME (BEAKER) (test bpmf=850) 10.8 fL 9.4-12.3 NUCLEATED RED BLOOD CELLS (BEAKER) (test iahv=197) 0 /100 WBC 0-0 NEUTROPHILS RELATIVE PERCENT (BEAKER) (test jxst=069) 63 % LYMPHOCYTES RELATIVE PERCENT (BEAKER) (test vzbh=992) 18 % MONOCYTES RELATIVE PERCENT (BEAKER) (test urhe=986) 18 % EOSINOPHILS RELATIVE PERCENT (BEAKER) (test kpfc=428) 1 % BASOPHILS RELATIVE PERCENT (BEAKER) (test xhyg=806) 0 % NEUTROPHILS ABSOLUTE COUNT (BEAKER) (test kqff=539) 2.04 K/ L 1.56-6.13 LYMPHOCYTES ABSOLUTE COUNT (BEAKER) (test iwpc=395) 0.57 K/ L 1.18-3.74 MONOCYTES ABSOLUTE COUNT (BEAKER) (test ggkx=486) 0.57 K/ L 0.24-0.36 EOSINOPHILS ABSOLUTE COUNT (BEAKER) (test zqis=920) 0.03 K/ L 0.04-0.36 BASOPHILS ABSOLUTE COUNT (BEAKER) (test uzlc=342) 0.00 K/ L 0.01-0.08 IMMATURE GRANULOCYTES-RELATIVE PERCENT (BEAKER) (test pkcl=3474) 1 % 0-1 PROTHROMBIN [id number] 06:29:00* Test Item Value Reference Range Comments PROTIME (BEAKER) (test qfpp=495) 19.8 seconds 11.7-14.7 INR (BEAKER) (test uhej=220) 1.7 <=5.9 RECOMMENDED COUMADIN/WARFARIN INR THERAPY RANGESSTANDARD DOSE: 2.0 - 3.0 Inclu tiffanie: PROPHYLAXIS for venous thrombosis, systemic embolization; TREATMENT for hugo ous thrombosis and/or pulmonary embolus.HIGH RISK: Target INR is 2.5-3.5 for pat ients with mechanical heart valves.CT, CHEST, WITHOUT [id number] 23:03:00Referring: Dr. Jemal Skelton for exam:->liver lesion, exclude metastatic disease, on liver transplant listWhat is the patient's sedation requirement?->No SedationIs the patient ?->UnknownFINAL REPORT CT scan of the chest. CLINICAL [...] technique. FINDINGS: The mediastinum demonstrates no suspicious m asses or adenopathy. Trace pericardial fluid is seen. A trace right pleural effu maddie is identified. There are large paraesophageal varices. The visualized porti ons of the upper abdomen demonstrate a nodular, cirrhotic appearing liver. [place] cystectomy clips are seen. The spleen is markedly enlarged. Mild ascites is seen . A dilated left gastric vein is seen. Cholecystectomy clips are noted. The trac heobronchial tree is clear with no endobronchial lesions. The pulmonary parenchy ma demonstrates a 4 mm granuloma in the superior segment of the right lower lobe on image 20. No suspicious pulmonary nodules are seen. Bone windows demonstrate degenerative changes. IMPRESSION:1. Trace right pleural effusion with adjacent atelectasis or consolidation. No suspicious pulmonary masses.2. Upper abdominal findings as described above. There is extensive portal hypertension with large p araesophageal varices. Signed: Abdullahi Dewitt MDReport Verified Date/Time: 23:03:08 Reading Location: [facility] [id number] Consult Reading Room Electr onically signed by: ABDULLAHI DEWITT M.D. on 12/04/2018 11:03 PM BASIC METABOLIC [id number] 06:55:00* Test Item Value Reference Range Comments SODIUM (BEAKER) (test cahj=156) 132 meq/L 136-145 POTASSIUM (BEAKER) (test poto=850) 4.1 meq/L 3.5-5.1 CHLORIDE (BEAKER) (test nngz=558) 102 meq/L 98-107 CO2 (BEAKER) (test wwiv=705) 27 meq/L 22-29 BLOOD UREA NITROGEN (BEAKER) (test jfdb=724) 12 mg/dL 7-21 CREATININE (BEAKER) (test uoca=435) 0.62 mg/dL 0.57-1.25 GLUCOSE RANDOM (BEAKER) (test gjpu=250) 102 mg/dL 70-105 CALCIUM (BEAKER) (test xlal=098) 8.2 mg/dL 8.4-10.2 EGFR (BEAKER) (test blbr=6070) 101 mL/min/1.73 sq m ESTIMATED GFR IS NOT ACCURATE CREATININE CLEARANCE IN PREDICTING GLOMERULAR FILTRATION RATE. ESTIMATED GFR IS NOT APPLICABLE FOR DIALYSIS PATIENTS. Specimen moderately ictericHEPATIC FUNCTION [id number] 06:55:00* Test Item Value Reference Range Comments TOTAL PROTEIN (BEAKER) (test reyc=956) 7.2 gm/dL 6.0-8.3 ALBUMIN (BEAKER) (test gvfy=6105) 2.2 g/dL 3.5-5.0 BILIRUBIN TOTAL (BEAKER) (test dpeb=820) 5.5 mg/dL 0.2-1.2 BILIRUBIN DIRECT (BEAKER) (test vdrs=027) 1.8 mg/dL 0.1-0.5 ALKALINE PHOSPHATASE (BEAKER) (test sxvz=222) 122 U/L 40-150 AST (SGOT) (BEAKER) (test fglh=785) 48 U/L 5-34 ALT (SGPT) (BEAKER) (test mlns=556) 34 U/L 6-55 Specimen moderately ictericPROTHROMBIN [id number] 06:22:00* Test Item Value Reference Range Comments PROTIME (BEAKER) (test sevh=786) 21.2 seconds 11.7-14.7 INR (BEAKER) (test spxe=853) 1.8 <=5.9 RECOMMENDED COUMADIN/WARFARIN INR THERAPY RANGESSTANDARD DOSE: 2.0 - 3.0 Inclu tiffanie: PROPHYLAXIS for venous thrombosis, systemic embolization; TREATMENT for hugo ous thrombosis and/or pulmonary embolus.HIGH RISK: Target INR is 2.5-3.5 for pat ients with mechanical heart valves.CBC W/PLT COUNT & AUTO [id number] 05:54:00* Test Item Value Reference Range Comments WHITE BLOOD CELL COUNT (BEAKER) (test shdr=205) 3.0 K/ L 3.5-10.5 RED BLOOD CELL COUNT (BEAKER) (test cfnr=222) 2.60 M/ L 3.93-5.22 HEMOGLOBIN (BEAKER) (test jvuj=930) 9.2 GM/DL 11.2-15.7 HEMATOCRIT (BEAKER) (test tcjt=591) 28.6 % 34.1-44.9 MEAN CORPUSCULAR VOLUME (BEAKER) (test bbwd=400) 110.0 fL 79.4-94.8 MEAN CORPUSCULAR HEMOGLOBIN (BEAKER) (test qecz=297) 35.4 pg 25.6-32.2 MEAN CORPUSCULAR HEMOGLOBIN CONC (BEAKER) (test bpdg=414) 32.2 GM/DL 32.2-35.5 RED CELL DISTRIBUTION WIDTH (BEAKER) (test wyyo=911) 15.0 % 11.7-14.4 PLATELET COUNT (BEAKER) (test uubm=942) 11 K/CU MM 150-450 MEAN PLATELET VOLUME (BEAKER) (test ueoj=291) 13.6 fL 9.4-12.3 NUCLEATED RED BLOOD CELLS (BEAKER) (test xdle=369) 0 /100 WBC 0-0 NEUTROPHILS RELATIVE PERCENT (BEAKER) (test rtxn=346) 60 % LYMPHOCYTES RELATIVE PERCENT (BEAKER) (test bnuf=692) 19 % MONOCYTES RELATIVE PERCENT (BEAKER) (test qwhd=643) 19 % EOSINOPHILS RELATIVE PERCENT (BEAKER) (test bjru=124) 1 % BASOPHILS RELATIVE PERCENT (BEAKER) (test kxlm=917) 0 % NEUTROPHILS ABSOLUTE COUNT (BEAKER) (test nujr=723) 1.81 K/ L 1.56-6.13 LYMPHOCYTES ABSOLUTE COUNT (BEAKER) (test ftbb=729) 0.58 K/ L 1.18-3.74 MONOCYTES ABSOLUTE COUNT (BEAKER) (test vefn=868) 0.56 K/ L 0.24-0.36 EOSINOPHILS ABSOLUTE COUNT (BEAKER) (test fuac=640) 0.04 K/ L 0.04-0.36 BASOPHILS ABSOLUTE COUNT (BEAKER) (test sohp=103) 0.00 K/ L 0.01-0.08 IMMATURE GRANULOCYTES-RELATIVE PERCENT (BEAKER) (test klgm=9286) 1 % 0-1 HEPATITIS B CORE ANTIBODY, [id number] 16:03:00* Test Item Value Reference Range Comments HEPATITIS B CORE TOTAL ANTIBODY (BEAKER) (test mmbl=806) Reactive Nonreactive HEPATITIS B [id number] 16:03:00* Test Item Value Reference Range Comments HEPATITIS B CORE TOTAL ANTIBODY (BEAKER) (test fjcl=156) Reactive Nonreactive HEPATITIS B SURFACE ANTIBODY (BEAKER) (test alxa=852) 841.0 mIU/mL <8.0 HEPATITIS B SURFACE ANTIGEN (2) (BEAKER) (test hqcl=4697) Nonreactive Nonreactive HEPATITIS C [id number] 16:03:00* Test Item Value Reference Range Comments HEPATITIS C ANTIBODY (BEAKER) (test ytzt=899) Nonreactive Nonreactive CBC W/PLT COUNT & AUTO [id number] 10:37:00* Test Item Value Reference Range Comments WHITE BLOOD CELL COUNT (BEAKER) (test jynf=742) 2.3 K/ L 3.5-10.5 RED BLOOD CELL COUNT (BEAKER) (test izim=599) 2.61 M/ L 3.93-5.22 HEMOGLOBIN (BEAKER) (test kuhd=935) 9.4 GM/DL 11.2-15.7 HEMATOCRIT (BEAKER) (test fzuo=679) 28.8 % 34.1-44.9 MEAN CORPUSCULAR VOLUME (BEAKER) (test qnrw=116) 110.3 fL 79.4-94.8 MEAN CORPUSCULAR HEMOGLOBIN (BEAKER) (test xeve=816) 36.0 pg 25.6-32.2 MEAN CORPUSCULAR HEMOGLOBIN CONC (BEAKER) (test vwid=097) 32.6 GM/DL 32.2-35.5 RED CELL DISTRIBUTION WIDTH (BEAKER) (test iqlc=768) 15.0 % 11.7-14.4 PLATELET COUNT (BEAKER) (test elmd=847) 12 K/CU MM 150-450 MEAN PLATELET VOLUME (BEAKER) (test qjkn=921) 12.5 fL 9.4-12.3 NUCLEATED RED BLOOD CELLS (BEAKER) (test ajee=177) 0 /100 WBC 0-0 NEUTROPHILS RELATIVE PERCENT (BEAKER) (test dtiw=371) 62 % LYMPHOCYTES RELATIVE PERCENT (BEAKER) (test ubxp=801) 20 % MONOCYTES RELATIVE PERCENT (BEAKER) (test kicc=173) 15 % EOSINOPHILS RELATIVE PERCENT (BEAKER) (test wcqp=079) 1 % BASOPHILS RELATIVE PERCENT (BEAKER) (test lnyj=112) 0 % NEUTROPHILS ABSOLUTE COUNT (BEAKER) (test rmlr=126) 1.41 K/ L 1.56-6.13 LYMPHOCYTES ABSOLUTE COUNT (BEAKER) (test xqhm=483) 0.46 K/ L 1.18-3.74 MONOCYTES ABSOLUTE COUNT (BEAKER) (test nmam=673) 0.35 K/ L 0.24-0.36 EOSINOPHILS ABSOLUTE COUNT (BEAKER) (test kyyv=815) 0.03 K/ L 0.04-0.36 BASOPHILS ABSOLUTE COUNT (BEAKER) (test cwiy=564) 0.00 K/ L 0.01-0.08 IMMATURE GRANULOCYTES-RELATIVE PERCENT (BEAKER) (test gnyy=4493) 1 % 0-1 BASIC METABOLIC [id number] 06:00:00* Test Item Value Reference Range Comments SODIUM (BEAKER) (test pnag=833) 135 meq/L 136-145 POTASSIUM (BEAKER) (test yyal=661) 4.3 meq/L 3.5-5.1 CHLORIDE (BEAKER) (test ldlw=841) 103 meq/L 98-107 CO2 (BEAKER) (test psgc=182) 30 meq/L 22-29 BLOOD UREA NITROGEN (BEAKER) (test ltyi=226) 13 mg/dL 7-21 CREATININE (BEAKER) (test pfov=641) 0.61 mg/dL 0.57-1.25 GLUCOSE RANDOM (BEAKER) (test smct=261) 84 mg/dL 70-105 CALCIUM (BEAKER) (test kdog=405) 8.3 mg/dL 8.4-10.2 EGFR (BEAKER) (test nsky=1004) 103 mL/min/1.73 sq m ESTIMATED GFR IS NOT ACCURATE CREATININE CLEARANCE IN PREDICTING GLOMERULAR FILTRATION RATE. ESTIMATED GFR IS NOT APPLICABLE FOR DIALYSIS PATIENTS. Specimen moderately ictericHEPATIC FUNCTION [id number] 06:00:00* Test Item Value Reference Range Comments TOTAL PROTEIN (BEAKER) (test xcdx=924) 7.4 gm/dL 6.0-8.3 ALBUMIN (BEAKER) (test sqka=1721) 2.2 g/dL 3.5-5.0 BILIRUBIN TOTAL (BEAKER) (test huss=103) 7.1 mg/dL 0.2-1.2 BILIRUBIN DIRECT (BEAKER) (test owqf=197) 2.0 mg/dL 0.1-0.5 ALKALINE PHOSPHATASE (BEAKER) (test eqbj=441) 122 U/L 40-150 AST (SGOT) (BEAKER) (test zqpa=391) 46 U/L 5-34 ALT (SGPT) (BEAKER) (test zfqu=245) 36 U/L 6-55 Specimen moderately ictericVITAMIN [id number] 05:55:00* Test Item Value Reference Range Comments VITAMIN B12 (BEAKER) (test wult=335) 588 pg/mL 213-816 [id number] 05:55:00* Test Item Value Reference Range Comments FERRITIN (BEAKER) (test oide=049) 124 ng/mL 5-275 FOLATE, [id number] 05:55:00* Test Item Value Reference Range Comments FOLATE (BEAKER) (test cfxi=571) 11.8 ng/mL >=7.0 IRON, TIBC, % SAT. (WITHOUT FERRITIN)2018-12-03 05:19:00* Test Item Value Reference Range Comments IRON (BEAKER) (test siqe=804) 183.0 ug/dL 40.0-160.0 TOTAL IRON BINDING CAPACITY (BEAKER) (test utxn=100) 179 ug/dL 250-450 IRON % SATURATION (2) (BEAKER) (test lhcm=3515) 102 % 20-55 PROTHROMBIN [id number] 04:46:00* Test Item Value Reference Range Comments PROTIME (BEAKER) (test fzfo=422) 21.2 seconds 11.7-14.7 INR (BEAKER) (test cdng=658) 1.8 <=5.9 RECOMMENDED COUMADIN/WARFARIN INR THERAPY RANGESSTANDARD DOSE: 2.0 - 3.0 Inclu tiffanie: PROPHYLAXIS for venous thrombosis, systemic embolization; TREATMENT for hugo ous thrombosis and/or pulmonary embolus.HIGH RISK: Target INR is 2.5-3.5 for pat ients with mechanical heart valves.RETICULOCYTE [id number] 18:09:00* Test Item Value Reference Range Comments RETICULOCYTE COUNT PCT (BEAKER) (test cscf=082) 5.0 % 0.5-1.7 CBC W/PLT COUNT & AUTO [id number] 06:51:00* Test Item Value Reference Range Comments WHITE BLOOD CELL COUNT (BEAKER) (test lyzi=803) 2.6 K/ L 3.5-10.5 RED BLOOD CELL COUNT (BEAKER) (test eflb=668) 2.54 M/ L 3.93-5.22 HEMOGLOBIN (BEAKER) (test fsoe=027) 9.1 GM/DL 11.2-15.7 HEMATOCRIT (BEAKER) (test irke=321) 28.7 % 34.1-44.9 MEAN CORPUSCULAR VOLUME (BEAKER) (test lajq=210) 113.0 fL 79.4-94.8 MEAN CORPUSCULAR HEMOGLOBIN (BEAKER) (test ipdo=410) 35.8 pg 25.6-32.2 MEAN CORPUSCULAR HEMOGLOBIN CONC (BEAKER) (test nrtn=308) 31.7 GM/DL 32.2-35.5 RED CELL DISTRIBUTION WIDTH (BEAKER) (test ufpd=519) 15.2 % 11.7-14.4 PLATELET COUNT (BEAKER) (test sklh=666) 26 K/CU MM 150-450 MEAN PLATELET VOLUME (BEAKER) (test wzwc=695) 12.7 fL 9.4-12.3 NUCLEATED RED BLOOD CELLS (BEAKER) (test qbxl=840) 0 /100 WBC 0-0 NEUTROPHILS RELATIVE PERCENT (BEAKER) (test xhgt=920) 67 % LYMPHOCYTES RELATIVE PERCENT (BEAKER) (test mcol=148) 15 % MONOCYTES RELATIVE PERCENT (BEAKER) (test lmsx=727) 16 % EOSINOPHILS RELATIVE PERCENT (BEAKER) (test seaa=063) 2 % BASOPHILS RELATIVE PERCENT (BEAKER) (test lbqa=631) 0 % NEUTROPHILS ABSOLUTE COUNT (BEAKER) (test ejjw=019) 1.73 K/ L 1.56-6.13 LYMPHOCYTES ABSOLUTE COUNT (BEAKER) (test pyeb=365) 0.40 K/ L 1.18-3.74 MONOCYTES ABSOLUTE COUNT (BEAKER) (test uvmt=982) 0.41 K/ L 0.24-0.36 EOSINOPHILS ABSOLUTE COUNT (BEAKER) (test gozm=970) 0.04 K/ L 0.04-0.36 BASOPHILS ABSOLUTE COUNT (BEAKER) (test qvmx=380) 0.00 K/ L 0.01-0.08 IMMATURE GRANULOCYTES-RELATIVE PERCENT (BEAKER) (test uarz=4134) 1 % 0-1 BASIC METABOLIC [id number] 06:20:00* Test Item Value Reference Range Comments SODIUM (BEAKER) (test mmuo=806) 134 meq/L 136-145 POTASSIUM (BEAKER) (test tlke=497) 4.2 meq/L 3.5-5.1 CHLORIDE (BEAKER) (test wmfg=665) 104 meq/L 98-107 CO2 (BEAKER) (test kqix=774) 28 meq/L 22-29 BLOOD UREA NITROGEN (BEAKER) (test zfpj=310) 17 mg/dL 7-21 CREATININE (BEAKER) (test nahd=986) 0.57 mg/dL 0.57-1.25 GLUCOSE RANDOM (BEAKER) (test maqt=148) 92 mg/dL 70-105 CALCIUM (BEAKER) (test xote=749) 7.9 mg/dL 8.4-10.2 EGFR (BEAKER) (test qnqo=7784) 112 mL/min/1.73 sq m ESTIMATED GFR IS NOT ACCURATE CREATININE CLEARANCE IN PREDICTING GLOMERULAR FILTRATION RATE. ESTIMATED GFR IS NOT APPLICABLE FOR DIALYSIS PATIENTS. Specimen moderately ictericHEPATIC FUNCTION [id number] 06:12:00* Test Item Value Reference Range Comments TOTAL PROTEIN (BEAKER) (test pigz=057) 7.1 gm/dL 6.0-8.3 ALBUMIN (BEAKER) (test zrnd=7924) 2.0 g/dL 3.5-5.0 BILIRUBIN TOTAL (BEAKER) (test ohnx=908) 6.9 mg/dL 0.2-1.2 BILIRUBIN DIRECT (BEAKER) (test nheu=641) 1.9 mg/dL 0.1-0.5 ALKALINE PHOSPHATASE (BEAKER) (test lujk=129) 111 U/L 40-150 AST (SGOT) (BEAKER) (test arjw=160) 46 U/L 5-34 ALT (SGPT) (BEAKER) (test zwta=249) 38 U/L 6-55 Specimen moderately ictericPROTHROMBIN [id number] 06:07:00* Test Item Value Reference Range Comments PROTIME (BEAKER) (test tmij=696) 21.4 seconds 11.7-14.7 INR (BEAKER) (test ywkc=623) 1.9 <=5.9 RECOMMENDED COUMADIN/WARFARIN INR THERAPY RANGESSTANDARD DOSE: 2.0 - 3.0 Inclu tiffanie: PROPHYLAXIS for venous thrombosis, systemic embolization; TREATMENT for hugo ous thrombosis and/or pulmonary embolus.HIGH RISK: Target INR is 2.5-3.5 for pat ients with mechanical heart valves.HEPATITIS B CORE ANTIBODY, [id number] 06:54:00* Test Item Value Reference Range Comments HEPATITIS B CORE IGM ANTIBODY (BEAKER) (test whig=076) Nonreactive Nonreactive BASIC METABOLIC [id number] 06:46:00* Test Item Value Reference Range Comments SODIUM (BEAKER) (test berv=147) 134 meq/L 136-145 POTASSIUM (BEAKER) (test uqny=595) 3.9 meq/L 3.5-5.1 CHLORIDE (BEAKER) (test yfnu=391) 101 meq/L 98-107 CO2 (BEAKER) (test uldr=393) 30 meq/L 22-29 BLOOD UREA NITROGEN (BEAKER) (test phzf=857) 19 mg/dL 7-21 CREATININE (BEAKER) (test ryxu=059) 0.69 mg/dL 0.57-1.25 GLUCOSE RANDOM (BEAKER) (test umwp=318) 86 mg/dL 70-105 CALCIUM (BEAKER) (test xjfp=452) 7.6 mg/dL 8.4-10.2 EGFR (BEAKER) (test nfup=1084) 90 mL/min/1.73 sq m ESTIMATED GFR IS NOT ACCURATE CREATININE CLEARANCE IN PREDICTING GLOMERULAR FILTRATION RATE. ESTIMATED GFR IS NOT APPLICABLE FOR DIALYSIS PATIENTS. Specimen moderately [id number] 06:43:00* Test Item Value Reference Range Comments PHOSPHORUS (BEAKER) (test zgga=555) 4.1 mg/dL 2.3-4.7 [id number] 06:43:00* Test Item Value Reference Range Comments MAGNESIUM (BEAKER) (test bizt=303) 1.5 mg/dL 1.6-2.6 HEPATIC FUNCTION [id number] 06:43:00* Test Item Value Reference Range Comments TOTAL PROTEIN (BEAKER) (test enfr=966) 7.0 gm/dL 6.0-8.3 ALBUMIN (BEAKER) (test vbml=8707) 2.0 g/dL 3.5-5.0 BILIRUBIN TOTAL (BEAKER) (test lfyg=530) 6.3 mg/dL 0.2-1.2 BILIRUBIN DIRECT (BEAKER) (test jsss=710) 1.7 mg/dL 0.1-0.5 ALKALINE PHOSPHATASE (BEAKER) (test hzgu=874) 108 U/L 40-150 AST (SGOT) (BEAKER) (test rywe=687) 43 U/L 5-34 ALT (SGPT) (BEAKER) (test uqyd=581) 38 U/L 6-55 Specimen moderately ictericPROTHROMBIN [id number] 06:23:00* Test Item Value Reference Range Comments PROTIME (BEAKER) (test xtrf=995) 22.4 seconds 11.7-14.7 INR (BEAKER) (test yhof=477) 2.0 <=5.9 RECOMMENDED COUMADIN/WARFARIN INR THERAPY RANGESSTANDARD DOSE: 2.0 - 3.0 Inclu tiffanie: PROPHYLAXIS for venous thrombosis, systemic embolization; TREATMENT for hugo ous thrombosis and/or pulmonary embolus.HIGH RISK: Target INR is 2.5-3.5 for pat ients with mechanical heart valves.CBC W/PLT COUNT & AUTO [id number] 06:08:00* Test Item Value Reference Range Comments WHITE BLOOD CELL COUNT (BEAKER) (test ozec=445) 2.5 K/ L 3.5-10.5 RED BLOOD CELL COUNT (BEAKER) (test chku=279) 2.70 M/ L 3.93-5.22 HEMOGLOBIN (BEAKER) (test lbni=034) 9.9 GM/DL 11.2-15.7 HEMATOCRIT (BEAKER) (test luiu=594) 30.1 % 34.1-44.9 MEAN CORPUSCULAR VOLUME (BEAKER) (test oczi=821) 111.5 fL 79.4-94.8 MEAN CORPUSCULAR HEMOGLOBIN (BEAKER) (test xdmg=714) 36.7 pg 25.6-32.2 MEAN CORPUSCULAR HEMOGLOBIN CONC (BEAKER) (test xhth=466) 32.9 GM/DL 32.2-35.5 RED CELL DISTRIBUTION WIDTH (BEAKER) (test onts=157) 15.4 % 11.7-14.4 PLATELET COUNT (BEAKER) (test ecly=733) 21 K/CU MM 150-450 MEAN PLATELET VOLUME (BEAKER) (test ucha=935) 12.2 fL 9.4-12.3 NUCLEATED RED BLOOD CELLS (BEAKER) (test lvqt=638) 0 /100 WBC 0-0 NEUTROPHILS RELATIVE PERCENT (BEAKER) (test fltn=359) 62 % LYMPHOCYTES RELATIVE PERCENT (BEAKER) (test qanc=507) 19 % MONOCYTES RELATIVE PERCENT (BEAKER) (test zrpe=924) 17 % EOSINOPHILS RELATIVE PERCENT (BEAKER) (test zdbq=218) 1 % BASOPHILS RELATIVE PERCENT (BEAKER) (test uokh=726) 0 % NEUTROPHILS ABSOLUTE COUNT (BEAKER) (test pwwm=293) 1.55 K/ L 1.56-6.13 LYMPHOCYTES ABSOLUTE COUNT (BEAKER) (test cmlm=664) 0.47 K/ L 1.18-3.74 MONOCYTES ABSOLUTE COUNT (BEAKER) (test mwxz=491) 0.42 K/ L 0.24-0.36 EOSINOPHILS ABSOLUTE COUNT (BEAKER) (test oumi=462) 0.03 K/ L 0.04-0.36 BASOPHILS ABSOLUTE COUNT (BEAKER) (test htxy=263) 0.00 K/ L 0.01-0.08 IMMATURE GRANULOCYTES-RELATIVE PERCENT (BEAKER) (test edpo=9729) 1 % 0-1 MR, ABDOMEN, [id number] 07:35:00Referring: Dr. Jemal Woodson REPORT TECHNIQUE: MRI of the abdomen WITHOUT [...] cholecystectomy. No biliary ductal dilatation or filling defect.SPLEEN: 16.7 cm splenomegaly.PANCREAS: No focal masses or ductal dilatation. ADRENALS: No adrenal nodules.KIDNEYS/URETERS: No hydronephrosis or solid mass lesions. PERITONEUM/RETROPERITONEUM: Moderate to large volume ascites.LYMPH NODES: No lymphadenopathy.VESSELS: Conventional hepatic arterial anatomy. Large esophageal varices. The main portal vein measures 1.4 cm. GI TRACT: No distention or wall thickening. BONES AND SOFT TISSUES: Unremarkable. IMPRESSION: 1.The segment VIII lesion likely minimally arterially enhances, washes out, and forms a pseudocapsule. This is consistent with hepatocellular ca rcinoma and measures 1.9 cm. 2.No metastatic disease in the abdomen. 3.Cirrhosis with sequelae of portal hypertension including moderate to large volume ascites, splenic, and large esophageal varices. Signed: Rakan Leonard MDReport Verified Da te/Time: 11/30/2018 07:35:42 Reading Location: [facility] Diagnostic Imaging Reading Room - [place] [id number] Electronically signed by: RAKAN LEONARD MD on 11/30 07:35 AM [id number] 05:02:00* Test Item Value Reference Range Comments MAGNESIUM (BEAKER) (test hbos=084) 1.9 mg/dL 1.6-2.6 Specimen slightly hemolyzed [id number] 05:02:00* Test Item Value Reference Range Comments PHOSPHORUS (BEAKER) (test qgxg=283) 3.8 mg/dL 2.3-4.7 Specimen slightly hemolyzed BASIC METABOLIC [id number] 05:02:00* Test Item Value Reference Range Comments SODIUM (BEAKER) (test xxzg=966) 135 meq/L 136-145 POTASSIUM (BEAKER) (test xuhb=428) 4.9 meq/L 3.5-5.1 Specimen slightly hemolyzed CHLORIDE (BEAKER) (test ylca=582) 107 meq/L 98-107 CO2 (BEAKER) (test eobb=884) 23 meq/L 22-29 BLOOD UREA NITROGEN (BEAKER) (test zmzl=677) 19 mg/dL 7-21 CREATININE (BEAKER) (test unrc=986) 0.65 mg/dL 0.57-1.25 Specimen slightly hemolyzed GLUCOSE RANDOM (BEAKER) (test vpwm=594) 97 mg/dL 70-105 CALCIUM (BEAKER) (test zfrd=988) 8.1 mg/dL 8.4-10.2 EGFR (BEAKER) (test lvgk=3686) 96 mL/min/1.73 sq m ESTIMATED GFR IS NOT ACCURATE CREATININE CLEARANCE IN PREDICTING GLOMERULAR FILTRATION RATE. ESTIMATED GFR IS NOT APPLICABLE FOR DIALYSIS PATIENTS. Specimen moderately ictericHEPATIC FUNCTION [id number] 05:02:00* Test Item Value Reference Range Comments TOTAL PROTEIN (BEAKER) (test ovgv=597) 6.9 gm/dL 6.0-8.3 Specimen slightly hemolyzed ALBUMIN (BEAKER) (test ixxl=2002) 2.1 g/dL 3.5-5.0 Specimen slightly hemolyzed BILIRUBIN TOTAL (BEAKER) (test jtmi=369) 4.6 mg/dL 0.2-1.2 Specimen slightly hemolyzed BILIRUBIN DIRECT (BEAKER) (test przh=512) 1.7 mg/dL 0.1-0.5 Specimen slightly hemolyzed ALKALINE PHOSPHATASE (BEAKER) (test qrkh=541) 112 U/L 40-150 AST (SGOT) (BEAKER) (test xrzt=021) 52 U/L 5-34 Specimen slightly hemolyzed ALT (SGPT) (BEAKER) (test cerv=648) 48 U/L 6-55 Specimen slightly hemolyzed Specimen moderately ictericCBC W/PLT COUNT & AUTO [id number] 04:57:00* Test Item Value Reference Range Comments WHITE BLOOD CELL COUNT (BEAKER) (test qpvy=939) 3.2 K/ L 3.5-10.5 RED BLOOD CELL COUNT (BEAKER) (test jdhj=902) 2.71 M/ L 3.93-5.22 HEMOGLOBIN (BEAKER) (test vmat=079) 9.8 GM/DL 11.2-15.7 HEMATOCRIT (BEAKER) (test xxkr=988) 30.8 % 34.1-44.9 MEAN CORPUSCULAR VOLUME (BEAKER) (test nfry=766) 113.7 fL 79.4-94.8 MEAN CORPUSCULAR HEMOGLOBIN (BEAKER) (test mlox=094) 36.2 pg 25.6-32.2 MEAN CORPUSCULAR HEMOGLOBIN CONC (BEAKER) (test wtiv=269) 31.8 GM/DL 32.2-35.5 RED CELL DISTRIBUTION WIDTH (BEAKER) (test airg=908) 15.8 % 11.7-14.4 PLATELET COUNT (BEAKER) (test yjxw=073) 19 K/CU MM 150-450 MEAN PLATELET VOLUME (BEAKER) (test gszx=657) 12.1 fL 9.4-12.3 NUCLEATED RED BLOOD CELLS (BEAKER) (test hpyy=538) 0 /100 WBC 0-0 NEUTROPHILS RELATIVE PERCENT (BEAKER) (test kanw=228) 69 % LYMPHOCYTES RELATIVE PERCENT (BEAKER) (test yyvr=554) 16 % MONOCYTES RELATIVE PERCENT (BEAKER) (test flbp=804) 14 % EOSINOPHILS RELATIVE PERCENT (BEAKER) (test pvoa=851) 0 % BASOPHILS RELATIVE PERCENT (BEAKER) (test jihp=205) 0 % NEUTROPHILS ABSOLUTE COUNT (BEAKER) (test hcll=794) 2.18 K/ L 1.56-6.13 LYMPHOCYTES ABSOLUTE COUNT (BEAKER) (test jzhz=985) 0.50 K/ L 1.18-3.74 MONOCYTES ABSOLUTE COUNT (BEAKER) (test eytm=937) 0.45 K/ L 0.24-0.36 EOSINOPHILS ABSOLUTE COUNT (BEAKER) (test reks=092) 0.01 K/ L 0.04-0.36 BASOPHILS ABSOLUTE COUNT (BEAKER) (test qxhn=870) 0.00 K/ L 0.01-0.08 IMMATURE GRANULOCYTES-RELATIVE PERCENT (BEAKER) (test cgpg=7628) 0 % 0-1 PROTHROMBIN TIME/[id number] 04:39:00* Test Item Value Reference Range Comments PROTIME (BEAKER) (test slzy=919) 23.5 seconds 11.7-14.7 INR (BEAKER) (test ubmy=179) 2.1 <=5.9 RECOMMENDED COUMADIN/WARFARIN INR THERAPY RANGESSTANDARD DOSE: 2.0 - 3.0 Inclu tiffanie: PROPHYLAXIS for venous thrombosis, systemic embolization; TREATMENT for hugo ous thrombosis and/or pulmonary embolus.HIGH RISK: Target INR is 2.5-3.5 for pat ients with mechanical heart valves.PERIPHERAL BLOOD SMEAR - HOLD [id number] 12:32:00* Test Item Value Reference Range Comments PERIPHERAL SMEAR SAVE (VAIBHAV) (test xkwe=8662) SAVE PT/[id number] 09:55:00* Test Item Value Reference Range Comments PROTIME (BEAKER) (test myqg=938) 21.6 seconds 11.7-14.7 INR (BEAKER) (test lofa=050) 1.8 <=5.9 PARTIAL THROMBOPLASTIN TIME (BEAKER) (test hamh=275) 35.6 seconds 22.5-36.0 RECOMMENDED COUMADIN/WARFARIN INR THERAPY RANGESSTANDARD DOSE: 2.0 - 3.0 Inclu tiffanie: PROPHYLAXIS for venous thrombosis, systemic embolization; TREATMENT for hugo ous thrombosis and/or pulmonary embolus.HIGH RISK: Target INR is 2.5-3.5 for pat ients with mechanical heart valves.[id number] 09:47:00* Test Item Value Reference Range Comments D-DIMER QUANTITATIVE (BEAKER) (test ivgp=298) 13.03 MG/L FEU <0.50 Intended Use: The D-Dimer Assay can be used to aid in the diagnosis of Deep Vein Thrombosis (DVT) and Pulmonary Embolism Disease (PED).In patients with low pre- test probability, various studies concerning STA Liatest D-dimer test have repor rl that with a cutoff value of 0.50 MG/L FEU, the Negative Predictive Value (RECREATION FACILITY ATTENDANT V) regarding the exclusion of thrombosis is within 95-100% range.FIBRINOGEN 2018-11-29 09:43:00* Test Item Value Reference Range Comments FIBRINOGEN LEVEL (BEAKER) (test mgys=772) 118 mg/dl 225-434 PROTHROMBIN TIME/[id number] 09:37:00* Test Item Value Reference Range Comments PROTIME (BEAKER) (test gfnq=006) 22.1 seconds 11.7-14.7 INR (BEAKER) (test myoi=465) 1.9 <=5.9 RECOMMENDED COUMADIN/WARFARIN INR THERAPY RANGESSTANDARD DOSE: 2.0 - 3.0 Inclu tiffanie: PROPHYLAXIS for venous thrombosis, systemic embolization; TREATMENT for hugo ous thrombosis and/or pulmonary embolus.HIGH RISK: Target INR is 2.5-3.5 for pat ients with mechanical heart valves.[id number] 05:36:00* Test Item Value Reference Range Comments MAGNESIUM (BEAKER) (test zzpo=080) 2.1 mg/dL 1.6-2.6 Specimen slightly hemolyzed [id number] 05:36:00* Test Item Value Reference Range Comments PHOSPHORUS (BEAKER) (test mjjs=434) 2.9 mg/dL 2.3-4.7 Specimen slightly hemolyzed BASIC METABOLIC [id number] 05:36:00* Test Item Value Reference Range Comments SODIUM (BEAKER) (test nalm=995) 135 meq/L 136-145 POTASSIUM (BEAKER) (test oxss=825) 4.9 meq/L 3.5-5.1 Specimen slightly hemolyzed CHLORIDE (BEAKER) (test pwui=301) 108 meq/L 98-107 CO2 (BEAKER) (test rbok=220) 26 meq/L 22-29 BLOOD UREA NITROGEN (BEAKER) (test bahs=584) 17 mg/dL 7-21 CREATININE (BEAKER) (test zbhx=885) 0.70 mg/dL 0.57-1.25 Specimen slightly hemolyzed GLUCOSE RANDOM (BEAKER) (test ibtt=145) 152 mg/dL 70-105 CALCIUM (BEAKER) (test ouug=920) 8.0 mg/dL 8.4-10.2 EGFR (BEAKER) (test rsku=6863) 88 mL/min/1.73 sq m ESTIMATED GFR IS NOT ACCURATE CREATININE CLEARANCE IN PREDICTING GLOMERULAR FILTRATION RATE. ESTIMATED GFR IS NOT APPLICABLE FOR DIALYSIS PATIENTS. Specimen moderately ictericHEPATIC FUNCTION [id number] 05:36:00* Test Item Value Reference Range Comments TOTAL PROTEIN (BEAKER) (test nlko=734) 7.4 gm/dL 6.0-8.3 Specimen slightly hemolyzed ALBUMIN (BEAKER) (test rnlj=3242) 2.4 g/dL 3.5-5.0 Specimen slightly hemolyzed BILIRUBIN TOTAL (BEAKER) (test inrb=931) 4.0 mg/dL 0.2-1.2 Specimen slightly hemolyzed BILIRUBIN DIRECT (BEAKER) (test knik=831) 2.0 mg/dL 0.1-0.5 Specimen slightly hemolyzed ALKALINE PHOSPHATASE (BEAKER) (test afns=146) 143 U/L 40-150 AST (SGOT) (BEAKER) (test zesb=997) 56 U/L 5-34 Specimen slightly hemolyzed ALT (SGPT) (BEAKER) (test pxec=693) 49 U/L 6-55 Specimen slightly hemolyzed Specimen moderately ictericCBC W/PLT COUNT & AUTO [id number] 05:25:00* Test Item Value Reference Range Comments WHITE BLOOD CELL COUNT (BEAKER) (test yjpq=802) 2.5 K/ L 3.5-10.5 RED BLOOD CELL COUNT (BEAKER) (test dtus=291) 2.83 M/ L 3.93-5.22 HEMOGLOBIN (BEAKER) (test odiu=749) 10.5 GM/DL 11.2-15.7 HEMATOCRIT (BEAKER) (test vrqk=883) 33.7 % 34.1-44.9 MEAN CORPUSCULAR VOLUME (BEAKER) (test tzjt=102) 119.1 fL 79.4-94.8 MEAN CORPUSCULAR HEMOGLOBIN (BEAKER) (test udfb=167) 37.1 pg 25.6-32.2 MEAN CORPUSCULAR HEMOGLOBIN CONC (BEAKER) (test lrud=590) 31.2 GM/DL 32.2-35.5 RED CELL DISTRIBUTION WIDTH (BEAKER) (test zvhs=352) 16.0 % 11.7-14.4 PLATELET COUNT (BEAKER) (test iebm=464) 15 K/CU MM 150-450 MEAN PLATELET VOLUME (BEAKER) (test yqac=927) 13.6 fL 9.4-12.3 NUCLEATED RED BLOOD CELLS (BEAKER) (test qyvu=219) 0 /100 WBC 0-0 NEUTROPHILS RELATIVE PERCENT (BEAKER) (test zcdx=429) 86 % LYMPHOCYTES RELATIVE PERCENT (BEAKER) (test bong=273) 7 % MONOCYTES RELATIVE PERCENT (BEAKER) (test rffw=103) 6 % EOSINOPHILS RELATIVE PERCENT (BEAKER) (test ecuv=170) 0 % BASOPHILS RELATIVE PERCENT (BEAKER) (test ntge=162) 0 % NEUTROPHILS ABSOLUTE COUNT (BEAKER) (test veig=892) 2.17 K/ L 1.56-6.13 LYMPHOCYTES ABSOLUTE COUNT (BEAKER) (test kcaf=718) 0.17 K/ L 1.18-3.74 MONOCYTES ABSOLUTE COUNT (BEAKER) (test dcna=660) 0.16 K/ L 0.24-0.36 EOSINOPHILS ABSOLUTE COUNT (BEAKER) (test vccd=454) 0.00 K/ L 0.04-0.36 BASOPHILS ABSOLUTE COUNT (BEAKER) (test dauo=742) 0.00 K/ L 0.01-0.08 IMMATURE GRANULOCYTES-RELATIVE PERCENT (BEAKER) (test erhb=5331) 0 % 0-1 CT ABDOMEN/PELVIS [id number] 22:20:00 [place] [address] Patient Name: JAYASHREE KOENIG MR #: [id number] : 1965 Age/Sex: 53/F Req #: [id number] Adm Physician: JAIME GERARD MD Ordered by: JAIME GERARD MD Report #: [id number] Location: MED/SURG Room/Bed: [facility] Procedure: [id number] CT/CT ABDOMEN/PELVIS WO Exam Date: 11/25/18 Exam Clemente e: 2210 REPORT STATUS: Signed EX AMINATION: CT of the abdomen and pelvis without contrast. TECHNIQUE: Helic al CT images of the abdomen and pelvis were performed from the lung bases to t he lesser trochanters. No intravenous contrast was given per protocol. Coron al and sagittal reformatted images were obtained.Dose modulation, iterative re construction, and/or weight based adjustment of the mA/kV was utilized to redu ce the radiation dose to as low as reasonably achievable. COMPARISON: N one. CLINICAL HISTORY:Abdominal pain DISCUSSION: ABSENCE OF INTRA VENOUS CONTRAST DECREASES SENSITIVITY FOR DETECTION OF FOCAL LESIONS AND VASCU LAR PATHOLOGY. ABDOMEN/PELVIS: LOWER THORAX: Right pleural effusion. HEPATOBILIARY:Hepatic cirrhosis. Cholecystectomy. SPLEEN: Spleen enlar ged PANCREAS: No focal masses or ductal dilatation. ADRENALS: No adren al nodules. KIDNEYS/URETERS: Punctate left renal calculi. PELVIC ORGAN S/BLADDER: The bladder is normal. PERITONEUM/RETROPERITONEUM: Pelvic asci jesus. LYMPH NODES: No intra-abdominal,retroperitoneal, pelvic or inguinal lymphadenopathy. VESSELS: Limited evaluation GI TRACT: No distention o r wall thickening. BONES AND SOFT TISSUES: No bony destructive lesions. No soft tissue abnormalities. IMPRESSION: Cirrhotic liver with sple nomegaly and ascites. No acute CT finding. Signed by: Dr. Elroy lord M.D. on 11/25/2018 10:38 PM Dictated By: ELROY DE PAZ MD [facility] Signed By: ELROY DE PAZ MD on 11/25/182237 Transcribed By: JOHANNA on 11/25/182237 COPY TO: JAIME GEARRD MD CHEST SINGLE (PORTABLE) 2018-11-25 13:16:00 [place] [address] Patient Name: JAYASHREE KOENIG MR #: [id number] : 1965 Age/Sex: 53/F Req #: [id number] Adm Physician: JAIME GERARD MD Ordered by: GABY KRAFT MD Report #: [id number] Location: MED/SURG Room/Bed: [facility] Procedure: [id number] DX/CHEST SINGLE (PORTABLE) Exam Date: 11/25/18 Exam Time: 1300 REPORT STATUS: Signed EXAMINATION: CHEST SINGLE (PORTABLE) INDICATION: Cough. COMPAR CARLOS: None FINDINGS: TUBES and LINES: None. LUNGS: Mild bilat eral pulmonary venous congestion. There is no evidence of pneumonia or pulmo nary edema. PLEURA: No pleural effusion or pneumothorax. HEART AND ME DIASTINUM: The cardiac silhouette is mildly to moderately enlarged. BON ES AND SOFT TISSUES: No acute osseous lesion. Soft tissues are unremarkable. UPPER ABDOMEN: No free air under the diaphragm. IMPRESSION: Mi ld pulmonary venous congestion. Signed by: Rosa Alvarez on 11/25/2018 1:20 PM Dictated By: RAYMOND PELLETIER MD, MD Electronically S igned By: RAYMOND PELLETIER MD, MD on 11/25/18 1320 Transcribed By: JOHANNA on 02/07 1320 COPY TO: GABY KRAFT MD ALPHA FETOPROTEIN (AFP), TUMOR [id number] 14:36:00* Test Item Value Reference Range Comments ALPHA-FETOPROTEIN (BEAKER) (test nvot=6435) 2.7 ng/mL <10.0 COMPREHENSIVE METABOLIC [id number] 13:36:00* Test Item Value Reference Range Comments TOTAL PROTEIN (BEAKER) (test snpc=192) 7.1 gm/dL 6.0-8.3 ALBUMIN (BEAKER) (test hrpf=0493) 3.0 g/dL 3.5-5.0 ALKALINE PHOSPHATASE (BEAKER) (test wrkr=126) 154 U/L 40-150 BILIRUBIN TOTAL (BEAKER) (test kinq=658) 8.7 mg/dL 0.2-1.2 SODIUM (BEAKER) (test glkw=027) 140 meq/L 136-145 POTASSIUM (BEAKER) (test ahfv=523) 4.3 meq/L 3.5-5.1 CHLORIDE (BEAKER) (test gogp=351) 108 meq/L 98-107 CO2 (BEAKER) (test glzw=167) 26 meq/L 22-29 BLOOD UREA NITROGEN (BEAKER) (test gtbv=412) 9 mg/dL 7-21 CREATININE (BEAKER) (test pdyv=137) 0.54 mg/dL 0.57-1.25 GLUCOSE RANDOM (BEAKER) (test ndvw=393) 98 mg/dL 70-105 CALCIUM (BEAKER) (test pglq=804) 9.1 mg/dL 8.4-10.2 AST (SGOT) (BEAKER) (test brft=760) 63 U/L 5-34 ALT (SGPT) (BEAKER) (test kghi=450) 31 U/L 6-55 EGFR (BEAKER) (test kxrn=9764) 119 mL/min/1.73 sq m ESTIMATED GFR IS NOT ACCURATE CREATININE CLEARANCE IN PREDICTING GLOMERULAR FILTRATION RATE. ESTIMATED GFR IS NOT APPLICABLE FOR DIALYSIS PATIENTS. Specimen moderately ictericBILIRUBIN, [id number] 13:36:00* Test Item Value Reference Range Comments BILIRUBIN DIRECT (BEAKER) (test lhrg=213) 2.4 mg/dL 0.1-0.5 CBC W/PLT COUNT & AUTO [id number] 13:11:00* Test Item Value Reference Range Comments WHITE BLOOD CELL COUNT (BEAKER) (test tlgg=232) 3.6 K/ L 3.5-10.5 RED BLOOD CELL COUNT (BEAKER) (test czzh=877) 2.81 M/ L 3.93-5.22 HEMOGLOBIN (BEAKER) (test yurh=179) 10.0 GM/DL 11.2-15.7 HEMATOCRIT (BEAKER) (test ynbm=137) 30.5 % 34.1-44.9 MEAN CORPUSCULAR VOLUME (BEAKER) (test dgbn=858) 108.5 fL 79.4-94.8 MEAN CORPUSCULAR HEMOGLOBIN (BEAKER) (test irwe=209) 35.6 pg 25.6-32.2 MEAN CORPUSCULAR HEMOGLOBIN CONC (BEAKER) (test nmcs=904) 32.8 GM/DL 32.2-35.5 RED CELL DISTRIBUTION WIDTH (BEAKER) (test tuhc=475) 16.1 % 11.7-14.4 PLATELET COUNT (BEAKER) (test twrs=542) 19 K/CU MM 150-450 MEAN PLATELET VOLUME (BEAKER) (test mese=355) 11.4 fL 9.4-12.3 NUCLEATED RED BLOOD CELLS (BEAKER) (test rpfd=111) 0 /100 WBC 0-0 NEUTROPHILS RELATIVE PERCENT (BEAKER) (test caoo=086) 66 % LYMPHOCYTES RELATIVE PERCENT (BEAKER) (test onst=744) 19 % MONOCYTES RELATIVE PERCENT (BEAKER) (test cauz=098) 12 % EOSINOPHILS RELATIVE PERCENT (BEAKER) (test ddkp=226) 2 % BASOPHILS RELATIVE PERCENT (BEAKER) (test huhp=316) 1 % NEUTROPHILS ABSOLUTE COUNT (BEAKER) (test vejc=879) 2.41 K/ L 1.56-6.13 LYMPHOCYTES ABSOLUTE COUNT (BEAKER) (test pprn=138) 0.70 K/ L 1.18-3.74 MONOCYTES ABSOLUTE COUNT (BEAKER) (test uldk=304) 0.42 K/ L 0.24-0.36 EOSINOPHILS ABSOLUTE COUNT (BEAKER) (test fjia=196) 0.06 K/ L 0.04-0.36 BASOPHILS ABSOLUTE COUNT (BEAKER) (test nfbi=647) 0.03 K/ L 0.01-0.08 IMMATURE GRANULOCYTES-RELATIVE PERCENT (BEAKER) (test sbjh=4461) 1 % 0-1 PROTHROMBIN TIME/[id number] 13:02:00* Test Item Value Reference Range Comments PROTIME (BEAKER) (test uifg=064) 18.9 seconds 11.7-14.7 INR (BEAKER) (test dwgi=843) 1.6 <=5.9 RECOMMENDED COUMADIN/WARFARIN INR THERAPY RANGESSTANDARD DOSE: 2.0 - 3.0 Inclu tiffanie: PROPHYLAXIS for venous thrombosis, systemic embolization; TREATMENT for hugo ous thrombosis and/or pulmonary embolus.HIGH RISK: Target INR is 2.5-3.5 for pat ients with mechanical heart valves.US GUIDED [id number] 16:56:00 [place] [address] Patient Name: JAYASHREE FLYNN MR #: [id number] : 12/1964 Age/Sex: 53/F Req #: [id number] Adm Physician: FAVIAN BURDEN MD Ordered by: ALYSON MCMILLAN PA-C Report #: [id number] Location: MED/SURG2 Room/Bed: 208 Procedure: US/US GUIDED PARACENTESIS Exam Date: 10/10/18 Exam Time: 1611 REPORT STATUS: Si gned Procedure: Ultrasound-guided therapeutic paracentesis. Primary ope rator: Brandon Eason MD Pre-operative diagnosis: Small to moderate volume asc ites. Post-operative diagnosis: Trace ascites status post paracentesis. C onscious Sedation: The patient's heart rate and pulse oximetry were continuou sly monitored by the IR nurse. Additional Medications: Lidocaine 1% for local anesthesia Estimated blood loss: Minimal Specimens: 1500 cc of sero us ascites. No specimen sent to lab. Implants: None TECHNIQUE/FINDINGS: Informed consent was obtained from the patient and documented in the medical record. Given the patient's thrombocytopenia, she was transfused platelets pre -procedurally. The patient was placed in the supine position. Initial ultra sound demonstrated small to moderate volume ascites in the right lower quadran t. The right lower abdomen was prepped and draped in standard sterile fashion. 1% lidocaine was infiltrated into the skin and subcutaneous tissues for local anesthesia. Then under continuous sonographic guidance, a 5 Fr catheter was a dvanced into the peritoneal space. A total of 1500 cc of serous fluid was sofia todd with suction. The catheter was removed. Sterile dressing was applied. The patient tolerated the procedure well. IMPRESSION: Ultrasound-guided th erapeutic paracentesis with removal of 1500 cc of serous fluid. Signed by : Dr. Brandon Eason MD on 10/10/2018 4:59 PM Dictated By: BRANDON EASON MD Екатерина ctronically Signed By: BRANDON EASON MD on 10/10/181658 Transcribed By: JOHANNA hughes 10/10/181658 COPY TO: ALYSON MCMILLAN PA-C MRI BRAIN WO 2018-10-07 15:50:00 [place] [address] Patient Name: JAYASHREE FLYNN MR #: [id number] : 1965 Age/Sex: 53/F Req #: [id number] Adm Physician: FAVIAN BURDEN MD Ordered by: SWAPNA PAREDES M.D. Report #: [id number] Location: [facility]/SURG2 Room/Bed: [facility] Procedure: [id number] MRI/MRI BRAIN WO Exam Date: 10/07/18 Exam Time: 1518 REPORT STATUS: Signed Examination: MRI BRAIN WITHOUT CONTRAST History: 53-year-old female with new onset daily headaches; intractable headache; left-sided facial droop Compari son studies: Head CT performed October 06, 2018 Technique: Sagittal T2; axial DWI, FLAIR, GRE or SWI, T1, Coronal FLAIR. Intravenous contrast: None Findings: Scalp: No abnormal signal. No masses. Bone marrow: Normal in signal intensity. Brain volume: Adequate for age. No volume loss. Hugo tricles: Normal in size and configuration. No hydrocephalus. Extra-axia l spaces: No abnormalities. Parenchyma: Again demonstrated are patchy a nd punctate areas of hypoattenuation in the periventricular and subcortical an d left medial cerebellar white matter, nonspecific. No masses, hemorrhage, or acute vascular insults. Suprasellar and sellar region: No abnormalities. Craniocervical junction: No abnormalities. The foramen magnum is patent. No Chiari malformations. Vessels: Normal flow-voids in the arteries and sinuses. Additional findings:None. IMPRESSION: 1. No acute intracranial abnormality, specifically, no acute infarct. 2. Mild to moderate chronic micr ovascular ischemic change. Signed by: Dr. Sarah Hong M.D. on 10/07/19 3:53 PM Dictated By: SARAH MURPHY MD Electronically Ale d By: SARAH MURPHY MD on 10/07/18 1553 Transcribed By: JOHANNA on 0 10/07/18 1553 COPY TO: SWAPNA PAREDES MD CHEST 2 VIEWS 2018-10-06 18:31:00 [place] [address] Patient Name: JAYASHREE FLYNN MR #: [id number] : 1965 Age/Sex: 53/F Req #: [id number] Adm Physician: FAVIAN BURDEN MD Ordered by: ARNOLD MITTAL MD Report #: [id number] Location: MED/SURG2 Room/Bed: [facility] Procedure: 73 DX/CHEST 2 VIEWS Exam Date: Exam Time: REPORT STATUS: Signed EXAMINATION: PA and lateral views of the chest. COMPARISON: None CLINICAL HISTORY: C ough, shortness of breath DISCUSSION: Lines/tubes: None. Shannan ngs: Scattered calcified granuloma. No consolidative pneumonia. No edema. Pleura: There is no pleural effusion or pneumothorax. Heart and mediastinu m: The cardiomediastinal silhouette is normal. Bones and soft tissues: No acute bony abnormalities. IMPRESSION: No acute cardiopulmonary abnormalities. Signed by: Dr. Elroy De Paz M.D. on 10/06/2018 6:33 PM Dictated By: ELROY DE PAZ MD 32 Transcribed By: JOHANNA on 10/06/181832 COPY TO: ARNOLD MITTAL MD US ABDOMEN [id number] 16:51:00 [place] [address] Patient Name: JAYASHREE FLYNN MR #: [id number] : 12/1964 Age/Sex: 53/F Req #: [id number] Adm Physician: FAVIAN BURDEN MD Ordered by: ARNOLD MITTAL MD Report #: [id number] Location: MED/SURG2 Room/Bed: [facility] Procedure: US/US ABDOMEN LIMITED Exam Date: 10/06/18 Exam Ti me: 1600 REPORT STATUS: Signed E xam:Limited abdominal ultrasound History:Ascites Comparison: None avai lable Findings:Ascites present in all 4 quadrants, most prominent in the ri ght upper quadrant. Cirrhotic liver morphology with splenomegaly. Impression: Abdominal ascites most prominent in the right upper quadrant Signed by: Dr. Elroy De Paz M.D. on 10/06/2018 4:52 PM Dictated By: ELROY DE PAZ MD 53 Transcribed By: JOHANNA on 10/06/181651 COPY TO: ARNOLD MITTAL MD [id number] 16:18:00 [place] [address] Patient Name: JAYASHREE FLYNN MR #: [id number] : 1965 Age/Sex: 53/F Req #: [id number] Adm Physician: FAVIAN BURDEN MD Ordered by: YUMIKO MITCHELL MD Report #: [id number] Location: MED/SURG2 Room/Bed: [facility] Procedure: [id number] US/US LIVER Exam Date: 10/06/18 Exam Time: 14 00 REPORT STATUS: Signed EXAMINA TION: Right upper quadrant ultrasound CLINICAL INDICATION: Cirrhosis C OMPARISON: February 19, 2018 DISCUSSION: Transverse and longitudinal im ages of the right upper quadrant were obtained. The liver is normal in size measuring 11.4centimeters in length in the right midclavicular line and shows heterogeneous coarse echogenicity with nodular contour. No focal masses are s een in the liver. There is no intrahepatic biliary dilatation. The comm on bile duct is normal in caliber and measures 0.2 cm. The main portal vein is normal in caliber and measures 1 cm with normal hepatopetal flow. Cholecy stectomy The visualized portions of the pancreatic body are unremarkable. The right kidney measures 10.4 centimeters in length. There is normal renal cortical echogenicity and no hydronephrosis, mass or shadowing calculi. The visualized portions of the great vessels are poorly visualized. Ascites IMPRESSION: Cirrhotic liver morphology with ascites. Cyste ctomy. Signed by: Dr. Elroy De Paz M.D. on 10/06/2018 4:20 PM Dict ated By: ELROY DE PAZ MD 1620 COPY TO: YUMIKO MITCHELL MD CT BRAIN [id number] 10:18:00 [place] [address] Patient Name: JAYASHREE FLYNN MR #: [id number] : 1965 Age/Sex: 53/F Req #: [id number] Adm Physician: Ordered by: MALINA RANDALL MD Report #: [id number] Location: ER Room/Bed: Procedure: [id number] CT/CT BRAIN WO Exam Date: 10/06/18 Exam Time: 0957 REPORT STATUS: Signed CT BR AIN WO HISTORY: Fever, headache; cirrhosis COMPARISON: CT of the abdo men and pelvis 02/19/2018 TECHNIQUE: Noncontrast axial scans were obtained from skull base to the vertex. Coronal and sagittal reconstructions obtained from the axial data. One or more of the following dose reduction techniques were used: Automated exposure control, adjustment of the mA and/or kV accordin g to patient size, and/or utilization of iterative reconstruction technique. DISCUSSION: Scalp/Skull: Unremarkable. Brain sulci: Overall appropria te for patient's age. Ventricles: Normal in size and configuration. No hydroc ephalus. Extra-axial spaces: No masses or fluid collections. Parench yma: Mild, ill-defined hypodensities are seen in the bifrontal deep white mat ter and left subinsular region. There is no significant mass effect. Subt le, focal juxtacortical hypodensity along the medial left cerebellar hemispher e (adjacent to the vermis) may be due to age indeterminate ischemia. There is no significant mass effect. Mild bilateral globus pallidus calcification is likely due to age-related mineralization. Otherwise, no hemorrhage, or large vascular territory acute infarct. Dural sinuses: No abnormal densiti es. Sellar/Suprasellar region: Intact. Skull base: Intact. Incidental find ings: Mild left ethmoid air cell mucosal thickening is nonspecific. IMPRE SSION: 1. Nonspecific mild ill-defined hypodensities in the bifrontal deep wh ite matter and left subinsular region may be due to chronic microvascular isch emic change, gliosis, and/or vasogenic edema. 2. Subtle, focal juxtacortica l hypodensity along the medial left cerebellar hemisphere may be due to age in determinate ischemia. 3. Otherwise, no acute intracranial abnormalities. Further evaluation with brain MRI (without and with contrast) is recommended if clinically feasible. Signed by: Dr. Gilberto Cosme M.D. on 09/22 10:38 AM Dictated By: GILBERTO COSME MD 1038 Transcribed By: JOHANNA on 10/06/18 103 8 COPY TO: MALINA RANDALL MD MR, ABDOMEN, [id number] 15:35:00Referring: Dr. Jemal Donohue Abdominal VesselsFINAL REPORT MRI of the abdomen. CLINICAL HISTORY: on liver transplant list. COMPARISON STUDY: March 08, 2018. Technique: Multiplanar, multisequence imaging of the abdomen was acquired both pre and post administration of intravenous gadolinium in a dynamic fashion. No oral contrast was administered. FINDINGS: No pleural effusion is seen. The liver is markedly nodular and cirr hotic in appearance. Post administration of intravenous gadolinium in a dynamic fashion, a 1.4 x 1.4 cm arterial enhancing lesion is seen in segment eight which previously measured 1.3 cm suggesting a possible minimal increase in size. This lesion demonstrates no washout and no T2 weighted signal abnormality. Other are as of enhancement are seen including a 8 mm focus in segment six which is stable from October 07, 2017. No new foci of enhancement are seen. The portal vein re elyssa patent measuring 1.5 cm. The spleen is enlarged measuring 17.4 cm in lengt h. The pancreas, kidneys and adrenal glands are within normal limits. Mild to mo derate ascites is seen. Extensive portal hypertension is seen with massive parae sophageal varices and a dilated left gastric vein. Some anterior abdominal wall collaterals are also present. The gallbladder is absent. No biliary dilatation i s seen. The visualized osseous structures demonstrate red marrow conversion. IMP RESSION:1. Nodular, cirrhotic appearing liver with mild to moderate ascites.2. T wo stable enhancing indeterminate right lobe nodules for which continued follow- up is recommended.3. Splenomegaly.4. Evidence of portal hypertension. Signed: Abdullahi Mata MDReport Verified Date/Time: 09/05/2018 15:35:55 Reading Location : [address] Radiology Reading Room W/PLT COUNT & AUTO [id number] 15:08:00* Test Item Value Reference Range Comments WHITE BLOOD CELL COUNT (BEAKER) (test slrs=596) 3.4 K/ L 3.5-10.5 RED BLOOD CELL COUNT (BEAKER) (test nvhr=954) 2.75 M/ L 3.93-5.22 HEMOGLOBIN (BEAKER) (test evni=885) 9.9 GM/DL 11.2-15.7 HEMATOCRIT (BEAKER) (test hmvj=813) 30.6 % 34.1-44.9 MEAN CORPUSCULAR VOLUME (BEAKER) (test uwpb=500) 111.3 fL 79.4-94.8 MEAN CORPUSCULAR HEMOGLOBIN (BEAKER) (test mhwm=543) 36.0 pg 25.6-32.2 MEAN CORPUSCULAR HEMOGLOBIN CONC (BEAKER) (test jmiv=819) 32.4 GM/DL 32.2-35.5 RED CELL DISTRIBUTION WIDTH (BEAKER) (test trdh=058) 16.6 % 11.7-14.4 PLATELET COUNT (BEAKER) (test gzon=031) 30 K/CU MM 150-450 MEAN PLATELET VOLUME (BEAKER) (test tffi=866) 12.7 fL 9.4-12.3 NUCLEATED RED BLOOD CELLS (BEAKER) (test qhfq=380) 0 /100 WBC 0-0 (CELLAVISION MANUAL DIFF)2018-09-05 15:08:00* Test Item Value Reference Range Comments NEUTROPHILS - REL (CELLAVISION)(BEAKER) (test ocrw=2689) 79 % LYMPHOCYTES - REL (CELLAVISION)(BEAKER) (test eupl=0179) 12 % MONOCYTES - REL (CELLAVISION)(BEAKER) (test dycs=1631) 5 % EOSINOPHILS - REL (CELLAVISION)(BEAKER) (test jtyl=6886) 2 % BASOPHILS - REL (CELLAVISION)(BEAKER) (test ytfk=4617) 2 % NEUTROPHILS - ABS (CELLAVISION)(BEAKER) (test rlvj=3006) 2.69 K/ul 1.56-6.13 LYMPHOCYTES - ABS (CELLAVISION)(BEAKER) (test hcqt=6789) 0.41 K/ul 1.18-3.74 MONOCYTES - ABS (CELLAVISION)(BEAKER) (test httn=2315) 0.17 K/uL 0.24-0.36 EOSINOPHILS - ABS (CELLAVISION)(BEAKER) (test xfsq=0885) 0.07 K/uL 0.04-0.36 BASOPHILS - ABS (CELLAVISION)(BEAKER) (test oyow=6271) 0.07 K/uL 0.01-0.08 TOTAL COUNTED (BEAKER) (test riof=5663) 100 WBC MORPHOLOGY (BEAKER) (test dbte=935) Normal PLT MORPHOLOGY (BEAKER) (test cdki=357) Normal POLYCHROMATOPHILLIC RBCS(BEAKER) (test kzht=704) 1+ few ANISOCYTOSIS (BEAKER) (test nblj=890) 1+ few POIKILOCYTES (BEAKER) (test blok=510) 1+ few ARTIFACT (CELLAVISION)(BEAKER) (test qhkg=6498) Present PLATELET CONCENTRATION (CELLAVISION)(BEAKER) (test gsli=5781) Decreased Received comment: User comments: Slide comments: COMPREHENSIVE METABOLIC PANEL 2018-09-05 14:52:00* Test Item Value Reference Range Comments TOTAL PROTEIN (BEAKER) (test gema=548) 7.1 gm/dL 6.0-8.3 ALBUMIN (BEAKER) (test igvo=7192) 2.8 g/dL 3.5-5.0 ALKALINE PHOSPHATASE (BEAKER) (test ezbw=685) 138 U/L 40-150 BILIRUBIN TOTAL (BEAKER) (test plkk=204) 9.7 mg/dL 0.2-1.2 SODIUM (BEAKER) (test eyap=952) 135 meq/L 136-145 POTASSIUM (BEAKER) (test vvxy=923) 4.0 meq/L 3.5-5.1 CHLORIDE (BEAKER) (test zuyz=674) 107 meq/L 98-107 CO2 (BEAKER) (test qvww=494) 22 meq/L 22-29 BLOOD UREA NITROGEN (BEAKER) (test bpst=605) 10 mg/dL 7-21 CREATININE (BEAKER) (test lhgj=018) 0.50 mg/dL 0.57-1.25 GLUCOSE RANDOM (BEAKER) (test wncc=372) 71 mg/dL 70-105 CALCIUM (BEAKER) (test ppty=108) 8.6 mg/dL 8.4-10.2 AST (SGOT) (BEAKER) (test ufyr=122) 65 U/L 5-34 ALT (SGPT) (BEAKER) (test neyg=720) 37 U/L 6-55 EGFR (BEAKER) (test lirn=5445) 130 mL/min/1.73 sq m ESTIMATED GFR IS NOT ACCURATE CREATININE CLEARANCE IN PREDICTING GLOMERULAR FILTRATION RATE. ESTIMATED GFR IS NOT APPLICABLE FOR DIALYSIS PATIENTS. Specimen markedly ictericBILIRUBIN, [id number] 14:52:00* Test Item Value Reference Range Comments BILIRUBIN DIRECT (BEAKER) (test olfj=596) 2.4 mg/dL 0.1-0.5 PROTHROMBIN TIME/[id number] 14:25:00* Test Item Value Reference Range Comments PROTIME (BEAKER) (test evqx=216) 19.0 seconds 11.7-14.7 INR (BEAKER) (test tgfe=267) 1.6 <=5.9 RECOMMENDED COUMADIN/WARFARIN INR THERAPY RANGESSTANDARD DOSE: 2.0 - 3.0 Inclu tiffanie: PROPHYLAXIS for venous thrombosis, systemic embolization; TREATMENT for hugo ous thrombosis and/or pulmonary embolus.HIGH RISK: Target INR is 2.5-3.5 for pat ients with mechanical heart valves.[id number] 12:52:00* Test Item Value Reference Range Comments POC-CREATININE (VAIBHAV) (test swce=1035) 0.4 mg/dL 0.6-1.[address] [facility] [address] [facility] [address] POC-EGFR (BELANA) (test rmkm=0269) 168 mL/min/1.73M2 RAD, BONE DENSITY [id number] 15:48:00Referring: Dr. Jemal Hoffman Reason for Exam:->screening for osteopenia/osteoporosisFINAL REPORT Bone mineral density study 07/25/2018 at 1259. CLINICAL INDICATION: Osteoporosis. COMPARISON: None available FINDINGS: Evaluation of the left and right femoral necks and lumbar spine was performed utilizing a [employer] Advance bone densitometer. The left femoral neck [...] bilateral femoral necks and lumbar spine. Signed: Devang Mohamud Verified Date/Time: 07/25/2018 15:48:51 Reading Location: [facility] Radiology Reading Room A FETOPROTEIN (AFP), TUMOR [id number] 14:03:00 * Test Item Value Reference Range Comments ALPHA-FETOPROTEIN (BEAKER) (test brbn=4712) 2.2 ng/mL <10.0 COMPREHENSIVE METABOLIC [id number] 13:59:00* Test Item Value Reference Range Comments TOTAL PROTEIN (BEAKER) (test plyw=405) 7.1 gm/dL 6.0-8.3 ALBUMIN (BEAKER) (test nmsv=3593) 2.8 g/dL 3.5-5.0 ALKALINE PHOSPHATASE (BEAKER) (test hjpw=150) 152 U/L 40-150 BILIRUBIN TOTAL (BEAKER) (test fffi=519) 10.5 mg/dL 0.2-1.2 SODIUM (BEAKER) (test qtvn=430) 138 meq/L 136-145 POTASSIUM (BEAKER) (test ylfx=949) 4.3 meq/L 3.5-5.1 CHLORIDE (BEAKER) (test ygxw=847) 107 meq/L 98-107 CO2 (BEAKER) (test rjlc=105) 24 meq/L 22-29 BLOOD UREA NITROGEN (BEAKER) (test ggsa=906) 8 mg/dL 7-21 CREATININE (BEAKER) (test kspo=850) 0.54 mg/dL 0.57-1.25 GLUCOSE RANDOM (BEAKER) (test lmbl=524) 85 mg/dL 70-105 CALCIUM (BEAKER) (test ofwa=754) 8.4 mg/dL 8.4-10.2 AST (SGOT) (BEAKER) (test xbzz=880) 61 U/L 5-34 ALT (SGPT) (BEAKER) (test sllr=575) 31 U/L 6-55 EGFR (BEAKER) (test ssga=5499) 119 mL/min/1.73 sq m ESTIMATED GFR IS NOT ACCURATE CREATININE CLEARANCE IN PREDICTING GLOMERULAR FILTRATION RATE. ESTIMATED GFR IS NOT APPLICABLE FOR DIALYSIS PATIENTS. Specimen markedly ictericBILIRUBIN, [id number] 13:59:00* Test Item Value Reference Range Comments BILIRUBIN DIRECT (BEAKER) (test ejtg=874) 2.8 mg/dL 0.1-0.5 CBC W/PLT COUNT & AUTO [id number] 13:16:00* Test Item Value Reference Range Comments WHITE BLOOD CELL COUNT (BEAKER) (test npgd=770) 3.4 K/ L 3.5-10.5 RED BLOOD CELL COUNT (BEAKER) (test tvja=256) 2.77 M/ L 3.93-5.22 HEMOGLOBIN (BEAKER) (test ihta=175) 10.0 GM/DL 11.2-15.7 HEMATOCRIT (BEAKER) (test elqe=097) 31.0 % 34.1-44.9 MEAN CORPUSCULAR VOLUME (BEAKER) (test myry=186) 111.9 fL 79.4-94.8 MEAN CORPUSCULAR HEMOGLOBIN (BEAKER) (test uukd=109) 36.1 pg 25.6-32.2 MEAN CORPUSCULAR HEMOGLOBIN CONC (BEAKER) (test vfdg=951) 32.3 GM/DL 32.2-35.5 RED CELL DISTRIBUTION WIDTH (BEAKER) (test pxpt=254) 16.4 % 11.7-14.4 PLATELET COUNT (BEAKER) (test uiuz=227) 21 K/CU MM 150-450 MEAN PLATELET VOLUME (BEAKER) (test xzyr=641) 12.6 fL 9.4-12.3 NUCLEATED RED BLOOD CELLS (BEAKER) (test psmk=941) 0 /100 WBC 0-0 NEUTROPHILS RELATIVE PERCENT (BEAKER) (test ujtm=448) 66 % LYMPHOCYTES RELATIVE PERCENT (BEAKER) (test txwg=706) 18 % MONOCYTES RELATIVE PERCENT (BEAKER) (test zkxt=986) 10 % EOSINOPHILS RELATIVE PERCENT (BEAKER) (test pbll=682) 6 % BASOPHILS RELATIVE PERCENT (BEAKER) (test fald=336) 1 % NEUTROPHILS ABSOLUTE COUNT (BEAKER) (test wpoe=941) 2.25 K/ L 1.56-6.13 LYMPHOCYTES ABSOLUTE COUNT (BEAKER) (test yvbd=499) 0.61 K/ L 1.18-3.74 MONOCYTES ABSOLUTE COUNT (BEAKER) (test scae=697) 0.33 K/ L 0.24-0.36 EOSINOPHILS ABSOLUTE COUNT (BEAKER) (test zqjb=307) 0.19 K/ L 0.04-0.36 BASOPHILS ABSOLUTE COUNT (BEAKER) (test xcfe=953) 0.03 K/ L 0.01-0.08 IMMATURE GRANULOCYTES-RELATIVE PERCENT (BEAKER) (test xozu=4876) 0 % 0-1 PROTHROMBIN TIME/[id number] 13:12:00* Test Item Value Reference Range Comments PROTIME (BEAKER) (test bqcv=847) 20.1 seconds 11.7-14.7 INR (BEAKER) (test luwx=164) 1.7 <=5.9 RECOMMENDED COUMADIN/WARFARIN INR THERAPY RANGESSTANDARD DOSE: 2.0 - 3.0 Inclu tiffanie: PROPHYLAXIS for venous thrombosis, systemic embolization; TREATMENT for hugo ous thrombosis and/or pulmonary embolus.HIGH RISK: Target INR is 2.5-3.5 for pat ients with mechanical heart valves.IR [id number] 17:12:00 [place] [address] Patient Name: JAYASHREE FLYNN MR #: [id number] : 12/1964 Age/Sex: 53/F Req #: [id number] Adm Physician: FAVIAN BURDEN MD Ordered by: FAVIAN BURDEN MD Report #: [id number] Location: MED/SURG3 [place] [facility] [place] [facility] [place] Procedure: DX/IR CONSULT Exam Date: Exam Time: REPORT STATUS: Signed Procedure: Ultrasound- guided diagnostic paracentesis pulp screen operator: Brandon Eason MD Pre-o perative diagnosis: Small volume ascites, concern for SBP Post-operative diagn osis: Small volume ascites, concern for SBP Conscious Sedation: The karol ent's heart rate and pulse oximetry were continuously monitored by the IR nurs e. Additional Medications: Lidocaine 1% for local anesthesia Estimate d blood loss: Minimal Specimens: 10 cc of serous ascites Implants: None TECHNIQUE/FINDINGS: Informed consent was obtained from the patient and docume nted in the medical record. Given the patient's thrombocytopenia, she was benitez sfused one six pack of platelets immediately prior to the procedure. The patient was placed in the supine position. Initial ultrasound demonstrated sm all volume lower abdominal ascites. The right lower abdomen was prepped and dr juan migueled in standard sterile fashion. 1% lidocaine was infiltrated into the skin a nd subcutaneous tissues for local anesthesia. Then under continuous sonographi c guidance, a 20 gauge spine needle was advanced into the peritoneal space. A total of 10 cc of serous fluid was aspirated. The needle was removed. Sterile dressing was applied. Sample was sent to the lab. The patient tolerated the p rocedure well. IMPRESSION: Ultrasound-guided diagnostic paracentesis with removal of 10 cc of serous fluid. Signed by: Dr. Brandon Eason MD on 05/22 5:18 PM Dictated By: BRANDON EASON MD 17 Transcribed By: JOHANNA on 06/06/181717 COPY TO: FAVIAN BURDEN MD US GUIDED [id number] 17:12:00 [place] [address] Patient Name: JAYASHREE FLYNN MR #: [id number] : 12/1964 Age/Sex: 53/F Req #: [id number] Adm Physician: FAVIAN BURDEN MD Ordered by: FAVIAN BURDEN MD Report #: [id number] Location: MED/SURG3 Room/Bed: [facility] [place] [facility] [place] Procedure: 11 US/US GUIDED PARACENTESIS Exam Date: Exam Time: REPORT STATUS: Signed Procedure: Ultrasound-guided diagnostic paracentesis pulp screen operator: Brandon Eason MD Pre-operative diagnosis: Small volume ascites, concern for SBP Post-ope rative diagnosis: Small volume ascites, concern for SBP Conscious Sedation: The patient's heart rate and pulse oximetry were continuously monitored by [facility] nurse. Additional Medications: Lidocaine 1% for local anesthesia Estimated blood loss: Minimal Specimens: 10 cc of serous ascites Implant s: None TECHNIQUE/FINDINGS: Informed consent was obtained from the patien t and documented in the medical record. Given the patient's thrombocytopenia, she was transfused one six pack of platelets immediately prior to the procedur e. The patient was placed in the supine position. Initial ultrasound demon strated small volume lower abdominal ascites. The right lower abdomen was prep ped and draped in standard sterile fashion. 1% lidocaine was infiltrated into the skin and subcutaneous tissues for local anesthesia. Then under continuous sonographic guidance, a 20 gauge spine needle was advanced into the peritoneal space. A total of 10 cc of serous fluid was aspirated. The needle was removed. Sterile dressing was applied. Sample was sent to the lab. The patient kemi ated the procedure well. IMPRESSION: Ultrasound-guided diagnostic parac entesis with removal of 10 cc of serous fluid. Signed by: Dr. Brandon Eason MD on 06/06/2018 5:18 PM Dictated By: BRANDON EASON MD Electronically Sig adalid By: BRANDON EASON MD on 06/06/181717 Transcribed By: JOHANNA on 06/06/181717 COPY TO: FAVIAN BURDEN MD CHEST SINGLE (PORTABLE)2018-06-06 09:06:00 [place] [address] Patient Name: JAYASHREE FLYNN MR #: [id number] : 1965 Age/Sex: 53/F Req #: [id number] Adm Physician: Ordered by: DURGA QUINTANILLA MD Report #: [id number] Location: ER Room/Bed: Procedure: 1016-0 015 DX/CHEST SINGLE (PORTABLE) Exam Date: 06/06/18 E xam Time: 08 REPORT STATUS: Lae d PROCEDURE: A single AP view of the chest. COMPARISON: Chest radiogr aph 02/19/18. INDICATIONS: ABDOMEN PAIN, FEVER FINDINGS: Lines /tubes: None. Lungs: Low lung volumes. Mild bilateral perihilar and inte rstitial opacities. Mild patchy opacity at the right lung base. Pleura: There is no pleural effusion or pneumothorax. Heart and mediastinum: Mi ld enlargement of the cardiomediastinal silhouette. Bones: No acute b sravanthi abnormality. IMPRESSION: Mild pulmonary interstitial edema. Patchy opacity at the right lung base, more likely atelectasis than pneumonia . Dictated by: BRANDON EASON M.D. on 06/06/2018 at 9:06 Electronical ly approved by: BRANDON EASON M.D. on 06/06/2018 at 9:06 Dictated By: BRANDON EASON MD 5 Tra nscribed By: TYRONE on 06/06/18905 COPY TO: DURGA QUINTANILLA MD RAD, CHEST, 1 VIEW, NON [id number] 12:16:00Referring: Dr. Jemal Skelton for exam:->sobShould this be performed at the bedside?->NoIs the patient ?->NoFINAL REPORT Chest one view INDICATION: Shortness of breath COMPARISON: 11/05/2016 IMPRESSION: Previously seen right upper lobe nodularity is not apparent on this study. There are coarsened interstitial markings. No focal consolidation, edema, pleural effusion, or pneumothorax is seen. The cardiomediastinal silhouette is unremarkable. The bones appear intact. Signed: Chapo Velazquez MDReport Verified Date/Time: 05/23/2018 12:16:57 Reading Location: [facility] Radiology Reading Room W/PLT COUNT & AUTO [id number] 12:02:00* Test Item Value Reference Range Comments WHITE BLOOD CELL COUNT (BEAKER) (test jsst=197) 4.6 K/ L 3.5-10.5 RED BLOOD CELL COUNT (BEAKER) (test dzss=234) 2.88 M/ L 3.93-5.22 HEMOGLOBIN (BEAKER) (test agrn=445) 10.4 GM/DL 11.2-15.7 HEMATOCRIT (BEAKER) (test xswr=686) 31.5 % 34.1-44.9 MEAN CORPUSCULAR VOLUME (BEAKER) (test zyna=213) 109.4 fL 79.4-94.8 MEAN CORPUSCULAR HEMOGLOBIN (BEAKER) (test tkqp=168) 36.1 pg 25.6-32.2 MEAN CORPUSCULAR HEMOGLOBIN CONC (BEAKER) (test ppls=085) 33.0 GM/DL 32.2-35.5 RED CELL DISTRIBUTION WIDTH (BEAKER) (test hrxw=820) 16.5 % 11.7-14.4 PLATELET COUNT (BEAKER) (test aoig=173) 17 K/CU MM 150-450 MEAN PLATELET VOLUME (BEAKER) (test bbvk=143) 13.9 fL 9.4-12.3 NUCLEATED RED BLOOD CELLS (BEAKER) (test mfwf=784) 0 /100 WBC 0-0 NEUTROPHILS RELATIVE PERCENT (BEAKER) (test tsyf=967) 77 % LYMPHOCYTES RELATIVE PERCENT (BEAKER) (test xwta=282) 11 % MONOCYTES RELATIVE PERCENT (BEAKER) (test szbh=495) 11 % EOSINOPHILS RELATIVE PERCENT (BEAKER) (test jzew=605) 1 % BASOPHILS RELATIVE PERCENT (BEAKER) (test ikby=502) 0 % NEUTROPHILS ABSOLUTE COUNT (BEAKER) (test mnal=138) 3.51 K/ L 1.56-6.13 LYMPHOCYTES ABSOLUTE COUNT (BEAKER) (test leqi=406) 0.48 K/ L 1.18-3.74 MONOCYTES ABSOLUTE COUNT (BEAKER) (test oini=442) 0.48 K/ L 0.24-0.36 EOSINOPHILS ABSOLUTE COUNT (BEAKER) (test muvk=579) 0.06 K/ L 0.04-0.36 BASOPHILS ABSOLUTE COUNT (BEAKER) (test duzl=399) 0.02 K/ L 0.01-0.08 IMMATURE GRANULOCYTES-RELATIVE PERCENT (BEAKER) (test orvj=0863) 1 % 0-1 CREATINE KINASE (CK), TOTAL AND [id number] 11:54:00* Test Item Value Reference Range Comments CREATINE KINASE TOTAL (BEAKER) (test xuuk=696) 115 U/L 29-200 CREATINE KINASE-MB (BEAKER) (test rnlb=751) 1.5 ng/mL 0.0-6.6 CREATINE KINASE-MB INDEX (BEAKER) (test xxoh=559) 1.3 % CK-MB Reference Range:<6.7 Normal6.7-10.0 Borderline>10.0 Abnormal TROPONIN [id number] 11:54:00* Test Item Value Reference Range Comments TROPONIN I (BEAKER) (test oyzp=995) < ng/mL 0.00-0.03 Troponin I (TnI) levels must be interpreted in the context of the presenting sym ptoms and the clinical findings. Elevated TnI levels indicate myocardial damage, but are not specific for ischemic heart disease. Elevated TnI levels are seen in patients with other cardiac conditions (including myocarditis and congestive h eart failure), and slight TnI elevations occur in patients with other conditions , including sepsis, renal failure, acidosis, acute neurological disease, and per sistent tachyarrhythmia.BASIC METABOLIC [id number] 11:47:00* Test Item Value Reference Range Comments SODIUM (BEAKER) (test ntcs=986) 136 meq/L 136-145 POTASSIUM (BEAKER) (test jxax=264) 4.1 meq/L 3.5-5.1 CHLORIDE (BEAKER) (test jvik=279) 106 meq/L 98-107 CO2 (BEAKER) (test dfah=448) 24 meq/L 22-29 BLOOD UREA NITROGEN (BEAKER) (test wlwq=686) 13 mg/dL 7-21 CREATININE (BEAKER) (test obis=273) 0.65 mg/dL 0.57-1.25 GLUCOSE RANDOM (BEAKER) (test nwuj=991) 109 mg/dL 70-105 CALCIUM (BEAKER) (test ctxh=393) 8.4 mg/dL 8.4-10.2 EGFR (BEAKER) (test suus=3306) 96 mL/min/1.73 sq m ESTIMATED GFR IS NOT ACCURATE CREATININE CLEARANCE IN PREDICTING GLOMERULAR FILTRATION RATE. ESTIMATED GFR IS NOT APPLICABLE FOR DIALYSIS PATIENTS. Specimen moderately ictericHEPATIC FUNCTION [id number] 11:47:00* Test Item Value Reference Range Comments TOTAL PROTEIN (BEAKER) (test yfts=971) 7.6 gm/dL 6.0-8.3 ALBUMIN (BEAKER) (test uyjd=3109) 2.8 g/dL 3.5-5.0 BILIRUBIN TOTAL (BEAKER) (test sknq=027) 7.0 mg/dL 0.2-1.2 BILIRUBIN DIRECT (BEAKER) (test jkrh=721) 2.0 mg/dL 0.1-0.5 ALKALINE PHOSPHATASE (BEAKER) (test alsb=555) 172 U/L 40-150 AST (SGOT) (BEAKER) (test fcge=500) 56 U/L 5-34 ALT (SGPT) (BEAKER) (test nqvc=501) 28 U/L 6-55 Specimen moderately [id number] 11:47:00* Test Item Value Reference Range Comments LIPASE (BEAKER) (test gdmp=530) 40 U/L 8-78 Specimen moderately ictericMR, ABDOMEN, [id number] 15:00:00Referring: Dr. Jemal Donohue Abdominal VesselsFINAL REPORT TECHNIQUE: MRI of the abdomen WITHOUT [...] or capsule (axial postcontrast arterial series image 30).BILIARY: Prior cholecystectomy. No biliary ductal dilatation or filling defect.SPLEEN: The spleen is enlarged, measuring 17.7 cm in the craniocaudal dim ension. [place] bodies.PANCREAS: No focal masses or ductal dilatation. ADREN ALS: No adrenal nodules.KIDNEYS/URETERS: No hydronephrosis or solid mass lesions . PERITONEUM/RETROPERITONEUM: Small-moderate volume ascites.LYMPH NODES: No lymp hadenopathy.VESSELS: Portal system and hepatic veins are patent. Main portal vei n measures approximate 1.4 cm in diameter. Esophageal varices and perisplenic co llateral vessels. Abdominal aorta is within normal limits in caliber. GI TRACT: No distention or wall thickening. BONES AND SOFT TISSUES: Unremarkable. IMPRESS ION:Cirrhosis with portal hypertension and small-moderate volume ascites. No reece picious liver lesions. Unchanged indeterminate arterially enhancing foci in the right hepatic lobe. Signed: Chalo Patrick MDReport Verified Date/Time: 2017 15:00:53 Reading Location: [address] Radiology Reading Room [facility] signed by: CHALO PATRICK MD on 03/08/2018 03:00 PM COMPREHENSIVE METABOLIC [id number] 11:40:00* Test Item Value Reference Range Comments TOTAL PROTEIN (BEAKER) (test ijrs=770) 7.0 gm/dL 6.0-8.3 ALBUMIN (BEAKER) (test omnm=4811) 2.7 g/dL 3.5-5.0 ALKALINE PHOSPHATASE (BEAKER) (test jrdw=871) 150 U/L 40-150 BILIRUBIN TOTAL (BEAKER) (test gjbh=487) 6.3 mg/dL 0.2-1.2 SODIUM (BEAKER) (test svdp=175) 138 meq/L 136-145 POTASSIUM (BEAKER) (test tfpw=400) 4.0 meq/L 3.5-5.1 CHLORIDE (BEAKER) (test exkj=850) 110 meq/L 98-107 CO2 (BEAKER) (test tumy=420) 23 meq/L 22-29 BLOOD UREA NITROGEN (BEAKER) (test mwzt=398) 8 mg/dL 7-21 CREATININE (BEAKER) (test ypcu=851) 0.50 mg/dL 0.57-1.25 GLUCOSE RANDOM (BEAKER) (test qrwf=561) 88 mg/dL 70-105 CALCIUM (BEAKER) (test cwto=854) 8.4 mg/dL 8.4-10.2 AST (SGOT) (BEAKER) (test vear=148) 55 U/L 5-34 ALT (SGPT) (BEAKER) (test kcse=005) 23 U/L 6-55 EGFR (BEAKER) (test vxpq=6990) 131 mL/min/1.73 sq m ESTIMATED GFR IS NOT ACCURATE CREATININE CLEARANCE IN PREDICTING GLOMERULAR FILTRATION RATE. ESTIMATED GFR IS NOT APPLICABLE FOR DIALYSIS PATIENTS. Specimen moderately [id number] 11:17:00* Test Item Value Reference Range Comments POC-CREATININE (BEAKER) (test adlq=8728) 0.3 mg/dL 0.6-1.[address] [facility] [address] [facility] [address] POC-EGFR (BEAKER) (test seqk=7507) 235 mL/min/1.73M2 ALPHA FETOPROTEIN (AFP), TUMOR [id number] 11:15:00* Test Item Value Reference Range Comments ALPHA-FETOPROTEIN (BEAKER) (test eeos=8529) < ng/mL <10.0 BILIRUBIN, [id number] 11:01:00* Test Item Value Reference Range Comments BILIRUBIN DIRECT (BEAKER) (test kfay=937) 2.0 mg/dL 0.1-0.5 CBC W/PLT COUNT & AUTO [id number] 10:32:00* Test Item Value Reference Range Comments WHITE BLOOD CELL COUNT (BEAKER) (test wvor=218) 3.3 K/ L 3.5-10.5 RED BLOOD CELL COUNT (BEAKER) (test cacx=614) 2.62 M/ L 3.93-5.22 HEMOGLOBIN (BEAKER) (test xqtl=281) 9.3 GM/DL 11.2-15.7 HEMATOCRIT (BEAKER) (test bawi=418) 28.8 % 34.1-44.9 MEAN CORPUSCULAR VOLUME (BEAKER) (test bvdu=943) 109.9 fL 79.4-94.8 MEAN CORPUSCULAR HEMOGLOBIN (BEAKER) (test qpsg=823) 35.5 pg 25.6-32.2 MEAN CORPUSCULAR HEMOGLOBIN CONC (BEAKER) (test cigv=655) 32.3 GM/DL 32.2-35.5 RED CELL DISTRIBUTION WIDTH (BEAKER) (test wnyl=803) 16.9 % 11.7-14.4 PLATELET COUNT (BEAKER) (test nglh=237) 20 K/CU MM 150-450 MEAN PLATELET VOLUME (BEAKER) (test vpqq=162) 13.6 fL 9.4-12.3 NUCLEATED RED BLOOD CELLS (BEAKER) (test ohuo=794) 0 /100 WBC 0-0 NEUTROPHILS RELATIVE PERCENT (BEAKER) (test uyxn=368) 70 % LYMPHOCYTES RELATIVE PERCENT (BEAKER) (test poww=363) 16 % MONOCYTES RELATIVE PERCENT (BEAKER) (test bnrk=795) 10 % EOSINOPHILS RELATIVE PERCENT (BEAKER) (test jnzp=067) 3 % BASOPHILS RELATIVE PERCENT (BEAKER) (test iqpl=089) 0 % NEUTROPHILS ABSOLUTE COUNT (BEAKER) (test axnd=286) 2.28 K/ L 1.56-6.13 LYMPHOCYTES ABSOLUTE COUNT (BEAKER) (test qlnw=619) 0.53 K/ L 1.18-3.74 MONOCYTES ABSOLUTE COUNT (BEAKER) (test leeg=660) 0.33 K/ L 0.24-0.36 EOSINOPHILS ABSOLUTE COUNT (BEAKER) (test ipld=522) 0.09 K/ L 0.04-0.36 BASOPHILS ABSOLUTE COUNT (BEAKER) (test euro=006) 0.01 K/ L 0.01-0.08 IMMATURE GRANULOCYTES-RELATIVE PERCENT (BEAKER) (test xfol=1831) 0 % 0-1 PROTHROMBIN TIME/[id number] 10:28:00* Test Item Value Reference Range Comments PROTIME (BEAKER) (test alte=870) 21.1 seconds 11.7-14.7 INR (BEAKER) (test cfng=743) 1.8 <=5.9 RECOMMENDED COUMADIN/WARFARIN INR THERAPY RANGESSTANDARD DOSE: 2.0 - 3.0 Inclu tiffanie: PROPHYLAXIS for venous thrombosis, systemic embolization; TREATMENT for hugo ous thrombosis and/or pulmonary embolus.HIGH RISK: Target INR is 2.5-3.5 for pat ients with mechanical heart valves.CT ABDOMEN/PELVIS [id number] 16:33:00 [place] [address] Patient Name: JAYASHREE FLYNN MR #: [id number] : 1965 Age/Sex: 52/F Req #: [id number] Adm Physician: Ordered by: DHRUV BLAIR MD Report #: [id number] Location: ER Room/Bed: Procedure: [id number] CT/CT ABDOMEN/PELVIS WO Exam Date: 02/19/18 Exam Time: 1614 REPORT STATUS: Signed EXAM: CT Abdomen and Pelvis WITHOUT contrast INDICATION: COMPARISON: CT abdomen and pelvis 03/13/2017 TECHNIQUE: Abdo men and pelvis were scanned utilizing a multidetector helical scanner from the lung base to the pubic symphysis without administration of IV contrast. Absen ce of intravenous contrast decreases sensitivity for detection of focal lesion s and vascular pathology. Coronal and sagittal reformations were obtained. Rou lance protocol was performed. IV CONTRAST: None. ORA L CONTRAST: Water RADIATION DOSE: Total DLP: 684.6 mGy*cm Estimated effective dose: (DLP x 0.015 x size factor) mSv C OMPLICATIONS: None FINDINGS: LINES and TUBES: None. LOWER THORAX: 2.4 cm water attenuation nodular density adjacent to the left ventricular ap ex on series 2, image 10 is increased since prior exam which measured 1.2 cm a nd may represent loculated fluid. Trace pericardial effusion. Small hiatal her gema, unchanged. HEPATOBILIARY: Cirrhosis. No focal hepatic lesions on limi rl evaluation due to lack of IV contrast. No biliary ductal dilation. G ALLBLADDER: Cholecystectomy. SPLEEN: Splenomegaly, unchanged. PANCREA S: No focal masses or ductal dilatation. ADRENALS: No adrenal nodules KIDNEYS/URETERS: No hydronephrosis. No cystic or solid mass lesions. 1 mm right inferior pole and few 2 mm left renal calcified stones. GI TRACT: No abnormal distention or evidence of bowel obstruction. Wall thickening can not be evaluated due to lack of oral contrast. Appendix is not visualized. PELVIC ORGANS/BLADDER: Hysterectomy. Urinary bladder appears unremarkable. LYMPH NODES: Multiple mildly enlarged noncalcified gastrohepatic, periportal, perigastric lymph nodes measuring up to 1.7 cm remain unchanged. VESSELS: Main portal vein is dilated measuring 1.8 cm in diameter. Mild scattered ath erosclerotic calcifications of the abdominal aorta. PERITONEUM / RETROPERIT ONEUM: Unchanged moderate sized low-attenuation ascites throughout the abdomen and pelvis. No free air. BONES: Unremarkable. SOFT TISSUES: Unremarka ble. IMPRESSION: 1. Persistent moderate amount of low-atten uation ascites. No new loculated fluid collections in the abdomen and pelvis. 2. Cirrhosis with portal hypertension manifested by splenomegaly and dilat ed main portal vein, unchanged. 3. Bilateral nonobstructing nephrolithia sis. Signed by: Dr. Kailee Ceja M.D. on 02/19/2018 5:21 PM Dictated By: KAILEE CEJA MD [id number] Transcribed By: JOHANNA on 02/19/18 1721 COPY TO: DHRUV BLAIR MD CHEST SINGLE (PORTABLE)2018-02-19 16:18:00 [place] [id number] Patient Name: JAYASHREE FLYNN MR #: [id number] : 1965 Age/Sex: 52/F Req #: [id number] Adm Physician: Ordered by: DHRUV BLAIR MD Report #: [id number] Location: ER Room/Bed: Procedure: [id number] DX/CHEST SINGLE (PORT ABLE) Exam Date: 02/19/18 Exam Time: 1530 REPO RT STATUS: Signed EXAM: Single AP view of the chest (Portable). COMPARIS ON: Chest radiograph 03/16/2017 INDICATION: FINDINGS: Single portable AP view of the chest. The visualized bones and soft tissues, cardiac silhouette lungs, pleura appear unchanged. IMPRESSION: 1. Li matthew/tubes: None 2. Stable moderate enlargement of the cardiac silhouette with associated interstitial edema. 3. More confluent airspace opacity in the me dial right lower lobe likely due to edema rather than pneumonia. Continue to f ollow-up for evaluation of developing consolidation. Signed by: Dr. Alecia Ceja M.D. on 02/19/2018 4:20 PM Dictated By: KAILEE CEJA MD 16 20 Transcribed By: JOHANNA on 02/19/18 1620 COPY TO: DHRUV BLAIR MD MR, ABDOMEN, [id number] 13:54:00Referring: Dr. Jemal Donohue Abdominal VesselsFINAL REPORT MRI of the abdomen. CLINICAL HISTORY: cirrhosis, on liver transplant list. COMPARISON STUDY: January 14, 2017. Technique: Multiplanar, multisequence imaging of the abdomen was acquired both pre and post administration of intravenous gadolinium in a dynamic fashion. No oral contrast was administered. FINDINGS: No pleural effusion is seen. The liver is nodular and cirrhotic in appearance. Post administration of intravenous gadolinium in a dynamic fashion, a 1.3 cm enhancing lesion is seen in segment eight. It is similar to previous. Some questionable mild increased T2-weighted signal is seen. No definite washout is identified. A similar appearing 1.2 cm lesion is seen in segment six which is also stable from previous. Other punctate areas of enhancement are noted. The portal vein is patent measuring 1.2 cm. A tiny cyst is seen in the right lobe. Cholecystectomy clips are noted. There is no biliary dilatation. The spleen is enlarged measuring 16.2 cm in length. The pancreas and adrenal glands are unremarkable. Multiple bilateral small renal cysts are seen. There is moderate ascites. Extensive portal hypertension is seen with large paraesophageal varices and a large dilated left gastric vein. Abdominal wall collaterals are also pres ent. The visualized osseous structures demonstrate red marrow conversion. IMPRES MADDIE:1. Markedly nodular, cirrhotic appearing liver. Two arterial enhancing mass es are seen which are stable from previous. Differential includes early HCC and shunting. Continued six-month follow-up is recommended.2. Moderate ascites.3. Sp lenomegaly with evidence of portal hypertension. Signed: Abdullahi Dewittor edda Verified Date/Time: 10/07/2017 13:54:33 Reading Location: [address] [employer] Reading Room Electronically signed by: ABDULLAHI DEWITT M.D. on 018 01:54 PM COMPREHENSIVE METABOLIC [id number] 10:10:00* Test Item Value Reference Range Comments TOTAL PROTEIN (BEAKER) (test uzem=706) 6.8 gm/dL 6.0-8.3 ALBUMIN (BEAKER) (test yfaa=2568) 2.8 g/dL 3.5-5.0 ALKALINE PHOSPHATASE (BEAKER) (test tcqb=317) 142 U/L 40-150 BILIRUBIN TOTAL (BEAKER) (test mcfr=863) 7.5 mg/dL 0.2-1.2 SODIUM (BEAKER) (test ecfv=081) 137 meq/L 136-145 POTASSIUM (BEAKER) (test tetb=430) 4.1 meq/L 3.5-5.1 CHLORIDE (BEAKER) (test dahk=943) 108 meq/L 98-107 CO2 (BEAKER) (test mbjn=380) 25 meq/L 22-29 BLOOD UREA NITROGEN (BEAKER) (test bnnb=256) 5 mg/dL 7-21 CREATININE (BEAKER) (test rvwt=110) 0.47 mg/dL 0.57-1.25 GLUCOSE RANDOM (BEAKER) (test qlgx=229) 83 mg/dL 70-105 CALCIUM (BEAKER) (test wxws=953) 8.2 mg/dL 8.4-10.2 AST (SGOT) (BEAKER) (test wpbq=247) 62 U/L 5-34 ALT (SGPT) (BEAKER) (test aspv=768) 34 U/L 6-55 EGFR (BEAKER) (test llav=1139) 140 mL/min/1.73 sq m ESTIMATED GFR IS NOT ACCURATE CREATININE CLEARANCE IN PREDICTING GLOMERULAR FILTRATION RATE. ESTIMATED GFR IS NOT APPLICABLE FOR DIALYSIS PATIENTS. Specimen moderately ictericBILIRUBIN, [id number] 10:10:00* Test Item Value Reference Range Comments BILIRUBIN DIRECT (BEAKER) (test kmwn=054) 2.0 mg/dL 0.1-0.5 CBC W/PLT COUNT & AUTO [id number] 09:58:00* Test Item Value Reference Range Comments WHITE BLOOD CELL COUNT (BEAKER) (test wpdh=496) 4.8 K/ L 3.5-10.5 RED BLOOD CELL COUNT (BEAKER) (test pwmv=072) 2.79 M/ L 3.93-5.22 HEMOGLOBIN (BEAKER) (test zpuz=194) 9.5 GM/DL 11.2-15.7 HEMATOCRIT (BEAKER) (test borz=789) 29.9 % 34.1-44.9 MEAN CORPUSCULAR VOLUME (BEAKER) (test ehzg=596) 107.2 fL 79.4-94.8 MEAN CORPUSCULAR HEMOGLOBIN (BEAKER) (test slnf=127) 34.1 pg 25.6-32.2 MEAN CORPUSCULAR HEMOGLOBIN CONC (BEAKER) (test pxxx=131) 31.8 GM/DL 32.2-35.5 RED CELL DISTRIBUTION WIDTH (BEAKER) (test jrhu=062) 18.5 % 11.7-14.4 PLATELET COUNT (BEAKER) (test yjvi=953) 22 K/CU MM 150-450 MEAN PLATELET VOLUME (BEAKER) (test tkjk=103) 11.0 fL 9.4-12.3 NUCLEATED RED BLOOD CELLS (BEAKER) (test bkpn=334) 0 /100 WBC 0-0 NEUTROPHILS RELATIVE PERCENT (BEAKER) (test ddtu=292) 69 % LYMPHOCYTES RELATIVE PERCENT (BEAKER) (test gris=750) 17 % MONOCYTES RELATIVE PERCENT (BEAKER) (test fftu=014) 11 % EOSINOPHILS RELATIVE PERCENT (BEAKER) (test axbt=980) 1 % BASOPHILS RELATIVE PERCENT (BEAKER) (test baem=390) 0 % NEUTROPHILS ABSOLUTE COUNT (BEAKER) (test fjva=456) 3.32 K/ L 1.56-6.13 LYMPHOCYTES ABSOLUTE COUNT (BEAKER) (test gqvt=833) 0.83 K/ L 1.18-3.74 MONOCYTES ABSOLUTE COUNT (BEAKER) (test sdps=533) 0.54 K/ L 0.24-0.36 EOSINOPHILS ABSOLUTE COUNT (BEAKER) (test hncy=898) 0.06 K/ L 0.04-0.36 BASOPHILS ABSOLUTE COUNT (BEAKER) (test qegp=423) 0.02 K/ L 0.01-0.08 IMMATURE GRANULOCYTES-RELATIVE PERCENT (BEAKER) (test naff=2919) 0 % 0-1 PROTHROMBIN [id number] 09:53:00* Test Item Value Reference Range Comments PROTIME (BEAKER) (test opjg=432) 18.4 seconds 11.7-14.7 INR (BEAKER) (test kknw=186) 1.5 <=5.9 RECOMMENDED COUMADIN/WARFARIN INR THERAPY RANGESSTANDARD DOSE: 2.0 - 3.0 Inclu tiffanie: PROPHYLAXIS for venous thrombosis, systemic embolization; TREATMENT for hugo ous thrombosis and/or pulmonary embolus.HIGH RISK: Target INR is 2.5-3.5 for pat ients with mechanical heart valves.ALPHA FETOPROTEIN (AFP), TUMOR MARKER 2017-09-20 15:03:00* Test Item Value Reference Range Comments ALPHA-FETOPROTEIN (BEAKER) (test sjjy=8060) 2.5 ng/mL <10.0 PROTHROMBIN TIME/[id number] 14:26:00* Test Item Value Reference Range Comments PROTIME (BEAKER) (test dzvd=738) 19.5 seconds 11.7-14.7 INR (BEAKER) (test wkbo=918) 1.7 <=5.9 RECOMMENDED COUMADIN/WARFARIN INR THERAPY RANGESSTANDARD DOSE: 2.0 - 3.0 Inclu tiffanie: PROPHYLAXIS for venous thrombosis, systemic embolization; TREATMENT for hugo ous thrombosis and/or pulmonary embolus.HIGH RISK: Target INR is 2.5-3.5 for pat ients with mechanical heart valves.CBC W/PLT COUNT & AUTO [id number] 14:20:00* Test Item Value Reference Range Comments WHITE BLOOD CELL COUNT (BEAKER) (test vcta=724) 3.1 K/ L 3.5-10.5 RED BLOOD CELL COUNT (BEAKER) (test bobl=020) 2.78 M/ L 3.93-5.22 HEMOGLOBIN (BEAKER) (test lvun=338) 9.4 GM/DL 11.2-15.7 HEMATOCRIT (BEAKER) (test gkxa=920) 29.1 % 34.1-44.9 MEAN CORPUSCULAR VOLUME (BEAKER) (test rrvq=506) 104.7 fL 79.4-94.8 MEAN CORPUSCULAR HEMOGLOBIN (BEAKER) (test mgmc=158) 33.8 pg 25.6-32.2 MEAN CORPUSCULAR HEMOGLOBIN CONC (BEAKER) (test nfuh=643) 32.3 GM/DL 32.2-35.5 RED CELL DISTRIBUTION WIDTH (BEAKER) (test dngp=803) 17.2 % 11.7-14.4 PLATELET COUNT (BEAKER) (test coul=755) 30 K/CU MM 150-450 MEAN PLATELET VOLUME (BEAKER) (test aedu=256) 12.3 fL 9.4-12.3 NUCLEATED RED BLOOD CELLS (BEAKER) (test yixv=671) 0 /100 WBC 0-0 NEUTROPHILS RELATIVE PERCENT (BEAKER) (test ukge=490) 60 % LYMPHOCYTES RELATIVE PERCENT (BEAKER) (test rews=654) 24 % MONOCYTES RELATIVE PERCENT (BEAKER) (test tuom=825) 14 % EOSINOPHILS RELATIVE PERCENT (BEAKER) (test xlzf=239) 2 % BASOPHILS RELATIVE PERCENT (BEAKER) (test ssew=462) 0 % NEUTROPHILS ABSOLUTE COUNT (BEAKER) (test nqfa=878) 1.83 K/ L 1.56-6.13 LYMPHOCYTES ABSOLUTE COUNT (BEAKER) (test cbcr=599) 0.73 K/ L 1.18-3.74 MONOCYTES ABSOLUTE COUNT (BEAKER) (test wlta=737) 0.42 K/ L 0.24-0.36 EOSINOPHILS ABSOLUTE COUNT (BEAKER) (test hwrr=718) 0.06 K/ L 0.04-0.36 BASOPHILS ABSOLUTE COUNT (BEAKER) (test kedk=927) 0.01 K/ L 0.01-0.08 IMMATURE GRANULOCYTES-RELATIVE PERCENT (BEAKER) (test njbn=5858) 0 % 0-1 PERIPHERAL BLOOD SMEAR - PATHOLOGIST [id number] 13:05:00* Test Item Value Reference Range Comments RBC MORPHOLOGY (BEAKER) (test pfak=4734) Macrocytosis WBC MORPHOLOGY (BEAKER) (test qvgl=6203) Toxic Granulation PLT MORPHOLOGY (BEAKER) (test jzcm=3614) See comment PERIPHERAL SMR REVIEW (BEAKER) (test vbxy=0858) There is marked thrombocytopenia (Plt:22K), no abnormal forms. No circulating blasts or schistocytes. SJRA-MZJUXHDNBGG-8063 (BEAKER) (test sssp=3031) Deborah Cabrera M.D. (electronic signature) [id number] 19:18:00* Test Item Value Reference Range Comments HAPTOGLOBIN (BEAKER) (test jmut=167) < mg/dL 14-258 Effective 07/09/2014: Reference Range ChangeNew: 14258 Previous: 36-195 (MANUAL DIFFERENTIAL)2017-03-29 19:01:00* Test Item Value Reference Range Comments NEUTROPHILS - REL (DIFF) (BEAKER) (test gfks=7179) 75 % LYMPHOCYTES - REL (DIFF) (BEAKER) (test mfci=8392) 11 % MONOCYTES - REL (DIFF) (BEAKER) (test fmte=3499) 9 % EOSINOPHILS - REL (DIFF) (BEAKER) (test mypk=3121) 2 % BANDS - REL (DIFF) (BEAKER) (test dtiq=5668) 3 % 0-10 NEUTROPHILS - ABS (DIFF) (BEAKER) (test upks=3030) 2.70 K/ L 1.80-8.00 LYMPHOCYTES - ABS (DIFF) (BEAKER) (test korz=4057) 0.40 K/ L 1.48-4.50 MONOCYTES - ABS (DIFF) (BEAKER) (test lnvn=9384) 0.32 K/ L 0.00-1.30 EOSINOPHILS - ABS (DIFF) (BEAKER) (test wjls=3951) 0.07 K/ L 0.00-0.50 BANDS-ABS (DIFF) (BEAKER) (test aoze=4189) 0.1 K/ L 0.0-0.8 TOTAL COUNTED (BEAKER) (test zvfk=5536) 100 BANDS + SEGMENTED NEUTROPHILS (BEAKER) (test jizj=8600) 2.81 WBC MORPHOLOGY (BEAKER) (test nkij=009) Normal PLT MORPHOLOGY (BEAKER) (test nonk=259) Normal ANISOCYTOSIS (BEAKER) (test tswu=841) 2+ moderate MACROCYTES (BEAKER) (test ybsn=411) 2+ moderate OVALOCYTES (BEAKER) (test mwxk=344) 1+ few ALPHA FETOPROTEIN (AFP), TUMOR [id number] 17:57:00* Test Item Value Reference Range Comments ALPHA-FETOPROTEIN (BEAKER) (test lgqf=9499) 2.7 ng/mL <10.0 Effective 07/09/2014: Reference Range ChangeNew: <10.0 Previous: 0.0-8.0 LACTATE DEHYDROGENASE (LDH)2017-03-29 17:42:00* Test Item Value Reference Range Comments LACTATE DEHYDROGENASE (BEAKER) (test vljr=677) 321 U/L 125-220 BILIRUBIN, [id number] 17:42:00* Test Item Value Reference Range Comments BILIRUBIN DIRECT (BEAKER) (test wpqg=959) 1.8 mg/dL 0.1-0.5 COMPREHENSIVE METABOLIC [id number] 17:42:00* Test Item Value Reference Range Comments TOTAL PROTEIN (BEAKER) (test gjip=346) 7.3 gm/dL 6.0-8.3 ALBUMIN (BEAKER) (test sieg=9308) 3.1 g/dL 3.5-5.0 ALKALINE PHOSPHATASE (BEAKER) (test yscj=474) 170 U/L 40-150 BILIRUBIN TOTAL (BEAKER) (test ujrk=588) 7.0 mg/dL 0.2-1.2 SODIUM (BEAKER) (test cnft=215) 140 meq/L 136-145 POTASSIUM (BEAKER) (test fnzz=804) 4.2 meq/L 3.5-5.1 CHLORIDE (BEAKER) (test oeay=892) 109 meq/L 98-107 CO2 (BEAKER) (test ehcp=670) 25 meq/L 22-29 BLOOD UREA NITROGEN (BEAKER) (test nmgu=690) 10 mg/dL 7-21 CREATININE (BEAKER) (test egny=983) 0.54 mg/dL 0.57-1.25 GLUCOSE RANDOM (BEAKER) (test vsmq=898) 80 mg/dL 70-105 CALCIUM (BEAKER) (test wrfa=279) 8.8 mg/dL 8.4-10.2 AST (SGOT) (BEAKER) (test lgid=255) 55 U/L 5-34 ALT (SGPT) (BEAKER) (test fpzm=477) 26 U/L 6-55 EGFR (BEAKER) (test veul=3508) 120 mL/min/1.73 sq m ESTIMATED GFR IS NOT ACCURATE CREATININE CLEARANCE IN PREDICTING GLOMERULAR FILTRATION RATE. ESTIMATED GFR IS NOT APPLICABLE FOR DIALYSIS PATIENTS. Specimen moderately ictericRETICULOCYTE [id number] 17:27:00* Test Item Value Reference Range Comments RETICULOCYTE COUNT PCT (BEAKER) (test bknb=970) 5.1 % 0.5-1.7 CBC W/PLT COUNT & AUTO [id number] 17:27:00* Test Item Value Reference Range Comments WHITE BLOOD CELL COUNT (BEAKER) (test kgmi=775) 3.6 K/ L 3.5-10.5 RED BLOOD CELL COUNT (BEAKER) (test lhuf=354) 3.11 M/ L 3.93-5.22 HEMOGLOBIN (BEAKER) (test zsab=804) 10.9 GM/DL 11.2-15.7 HEMATOCRIT (BEAKER) (test ppgp=796) 33.6 % 34.1-44.9 MEAN CORPUSCULAR VOLUME (BEAKER) (test zsbu=789) 108.0 fL 79.4-94.8 MEAN CORPUSCULAR HEMOGLOBIN (BEAKER) (test bzum=546) 35.0 pg 25.6-32.2 MEAN CORPUSCULAR HEMOGLOBIN CONC (BEAKER) (test wwko=127) 32.4 GM/DL 32.2-35.5 RED CELL DISTRIBUTION WIDTH (BEAKER) (test jqbb=070) 16.2 % 11.7-14.4 PLATELET COUNT (BEAKER) (test whsb=209) 22 K/CU MM 150-450 MEAN PLATELET VOLUME (BEAKER) (test rxgl=865) 14.1 fL 9.4-12.3 NUCLEATED RED BLOOD CELLS (BEAKER) (test lojb=272) 0 /100 WBC 0-0 NEUTROPHILS RELATIVE PERCENT (BEAKER) (test ccrh=644) 62 % LYMPHOCYTES RELATIVE PERCENT (BEAKER) (test nbhk=149) 23 % MONOCYTES RELATIVE PERCENT (BEAKER) (test ckcv=137) 12 % EOSINOPHILS RELATIVE PERCENT (BEAKER) (test xpwg=420) 3 % BASOPHILS RELATIVE PERCENT (BEAKER) (test rezj=732) 1 % NEUTROPHILS ABSOLUTE COUNT (BEAKER) (test ciqb=538) 2.19 K/ L 1.56-6.13 LYMPHOCYTES ABSOLUTE COUNT (BEAKER) (test ruzt=071) 0.80 K/ L 1.18-3.74 MONOCYTES ABSOLUTE COUNT (BEAKER) (test pcva=175) 0.42 K/ L 0.24-0.36 EOSINOPHILS ABSOLUTE COUNT (BEAKER) (test pfvm=832) 0.10 K/ L 0.04-0.36 BASOPHILS ABSOLUTE COUNT (BEAKER) (test wmtp=065) 0.03 K/ L 0.01-0.08 IMMATURE GRANULOCYTES-RELATIVE PERCENT (BEAKER) (test yxss=7824) 0 % 0-1 PROTHROMBIN TIME/[id number] 17:26:00* Test Item Value Reference Range Comments PROTIME (BEAKER) (test tfkw=536) 18.2 seconds 11.7-14.7 INR (BEAKER) (test pxko=743) 1.5 <=5.9 RECOMMENDED COUMADIN/WARFARIN INR THERAPY RANGESSTANDARD DOSE: 2.0 - 3.0 Inclu tiffanie: PROPHYLAXIS for venous thrombosis, systemic embolization; TREATMENT for hugo ous thrombosis and/or pulmonary embolus.HIGH RISK: Target INR is 2.5-3.5 for pat ients with mechanical heart valves.[id number] 08:22:00* Test Item Value Reference Range Comments POC-CREATININE (BEAKER) (test hqmz=1640) 0.3 mg/dL 0.6-1.[address] [facility] [address] [facility] [address] POC-EGFR (BEAKER) (test kpdm=4808) 236 mL/min/1.73M2 ALPHA FETOPROTEIN (AFP), TUMOR [id number] 14:46:00* Test Item Value Reference Range Comments ALPHA-FETOPROTEIN (BEAKER) (test giis=1494) 2.3 ng/mL <10.0 Effective 07/09/2014: Reference Range ChangeNew: <10.0 Previous: 0.0-8.0 COMPREHENSIVE METABOLIC [id number] 14:25:00* Test Item Value Reference Range Comments TOTAL PROTEIN (BEAKER) (test ciak=817) 6.7 gm/dL 6.0-8.3 ALBUMIN (BEAKER) (test evwj=8473) 2.8 g/dL 3.5-5.0 ALKALINE PHOSPHATASE (BEAKER) (test pixg=123) 159 U/L 40-150 BILIRUBIN TOTAL (BEAKER) (test ifqb=180) 5.9 mg/dL 0.2-1.2 SODIUM (BEAKER) (test hhcq=525) 139 meq/L 136-145 POTASSIUM (BEAKER) (test dlry=102) 4.0 meq/L 3.5-5.1 CHLORIDE (BEAKER) (test anmz=533) 109 meq/L 98-107 CO2 (BEAKER) (test dirh=836) 22 meq/L 22-29 BLOOD UREA NITROGEN (BEAKER) (test brfr=078) 9 mg/dL 7-21 CREATININE (BEAKER) (test eage=362) 0.54 mg/dL 0.57-1.25 GLUCOSE RANDOM (BEAKER) (test tlyn=515) 92 mg/dL 70-105 CALCIUM (BEAKER) (test blue=954) 8.4 mg/dL 8.4-10.2 AST (SGOT) (BEAKER) (test bvys=901) 64 U/L 5-34 ALT (SGPT) (BEAKER) (test nkvh=654) 41 U/L 6-55 EGFR (BEAKER) (test kzem=3214) 120 mL/min/1.73 sq m ESTIMATED GFR IS NOT ACCURATE CREATININE CLEARANCE IN PREDICTING GLOMERULAR FILTRATION RATE. ESTIMATED GFR IS NOT APPLICABLE FOR DIALYSIS PATIENTS. Specimen moderately ictericBILIRUBIN, [id number] 14:25:00* Test Item Value Reference Range Comments BILIRUBIN DIRECT (BEAKER) (test tcft=363) 1.3 mg/dL 0.1-0.5 CBC W/PLT COUNT & AUTO [id number] 14:21:00* Test Item Value Reference Range Comments WHITE BLOOD CELL COUNT (BEAKER) (test ijdi=993) 3.2 K/ L 4.0-10.0 RED BLOOD CELL COUNT (BEAKER) (test olxf=769) 3.02 M/ L 4.00-5.00 HEMOGLOBIN (BEAKER) (test raco=651) 10.7 GM/DL 12.0-15.0 HEMATOCRIT (BEAKER) (test fstk=674) 33.3 % 36.0-45.0 MEAN CORPUSCULAR VOLUME (BEAKER) (test ocvp=748) 110.0 fL 82.0-99.0 MEAN CORPUSCULAR HEMOGLOBIN (BEAKER) (test sybe=501) 35.5 pg 27.0-33.0 MEAN CORPUSCULAR HEMOGLOBIN CONC (BEAKER) (test iyye=700) 32.2 GM/DL 32.0-36.0 RED CELL DISTRIBUTION WIDTH (BEAKER) (test qwch=942) 16.0 % 10.3-14.2 PLATELET COUNT (BEAKER) (test xcmi=486) 28 K/CU MM 150-430 MEAN PLATELET VOLUME (BEAKER) (test ouyk=012) 10.1 fL 6.5-10.5 NUCLEATED RED BLOOD CELLS (BEAKER) (test wbqn=438) 0 /100 WBC 0-0 NEUTROPHILS RELATIVE PERCENT (BEAKER) (test snfy=629) 60 % LYMPHOCYTES RELATIVE PERCENT (BEAKER) (test elqq=614) 23 % MONOCYTES RELATIVE PERCENT (BEAKER) (test cfyj=861) 14 % EOSINOPHILS RELATIVE PERCENT (BEAKER) (test jbng=264) 3 % BASOPHILS RELATIVE PERCENT (BEAKER) (test qtrv=537) 0 % NEUTROPHILS ABSOLUTE COUNT (BEAKER) (test lets=869) 1.89 K/ L 1.80-8.00 LYMPHOCYTES ABSOLUTE COUNT (BEAKER) (test mipk=925) 0.73 K/ L 1.48-4.50 MONOCYTES ABSOLUTE COUNT (BEAKER) (test qweu=940) 0.44 K/ L 0.00-1.30 EOSINOPHILS ABSOLUTE COUNT (BEAKER) (test qpbw=927) 0.09 K/ L 0.00-0.50 BASOPHILS ABSOLUTE COUNT (BEAKER) (test vyqh=614) 0.00 K/ L 0.00-0.20 0.00PREGNANCY SCREEN, [id number] 14:14:00* Test Item Value Reference Range Comments TEST URINE (BELANA) (test xtgp=943) Negative PROTHROMBIN [id number] 14:10:00* Test Item Value Reference Range Comments PROTIME (BELANA) (test phwx=140) 17.4 seconds 11.7-14.7 INR (BEAKER) (test cwkf=598) 1.4 <=5.9 RECOMMENDED COUMADIN/WARFARIN INR THERAPY RANGESSTANDARD DOSE: 2.0 - 3.0 Inclu tiffanie: PROPHYLAXIS for venous thrombosis, systemic embolization; TREATMENT for hugo ous thrombosis and/or pulmonary embolus.HIGH RISK: Target INR is 2.5-3.5 for pat ients with mechanical heart valves.TISSUE [id number] 13:52:00Surgical Pathology Report Case: [id number] Authorizing Provider: Rebecca Montes MD Ordering Provider: Tim Ramos MD Ordering Location: [facility] Radiology Angio Collected: 10/08/20162051 Patholog ist: Ragini Odell MD Received: 10/08/20162055 Specimen: Biopsy, Liver, Cirrhosis LIVER, TRANSJUGULAR NEEDLE BIOPSIES- CIRRHOSIS, see COMMENT Signing Pathologist Direct Phone Line: [phone] etiology of cirrhosis is not apparent in this liver biopsy. It may represent a burnt-out stage of steatohepatitis or autoimmune hepatitis, or could be secondar y to other etiology.02881, 09389 t8MpkuhiizrWlzcgsugkzhn needle biopsyReceived i n formalin labeled with patient's name and MRN are four tissue cores measuring 0 .3 cm to 1 cm in length with an average diameter of 0.1 cm. Entirely submitted i n A1.Section shows four variably sized cores of liver parenchyma and is adequate for evaluation. Trichrome and reticulin stain shows distortion of architecture with septal fibrosis and regenerative nodules. Mild perisinusoidal fibrosis is p resent. No steatosis, ballooning degeneration or lobular necroinflammation is se en. No cholestasis is noted. Glycogenated nuclei are present. The fibrous septa are expanded and show mild chronic lymphoplasmacytic inflammation. No significan t interface hepatitis is seen. The bile ducts appear preserved and unremarkable. Cholangiolar proliferation is present. Iron stain shows 1+ staining in the hepa tocytes. No hyaline globules are seen on PAS with diastase stain.CBC (HEMOGRAM ONLY)2016-10-08 20:55:00* Test Item Value Reference Range Comments WHITE BLOOD CELL COUNT (BEAKER) (test zgei=811) 3.7 K/ L 4.0-10.0 RED BLOOD CELL COUNT (BEAKER) (test ykne=636) 2.59 M/ L 4.00-5.00 HEMOGLOBIN (BEAKER) (test mgaw=730) 10.0 GM/DL 12.0-15.0 HEMATOCRIT (BEAKER) (test yppr=162) 27.9 % 36.0-45.0 MEAN CORPUSCULAR VOLUME (BEAKER) (test myzk=697) 108.0 fL 82.0-99.0 MEAN CORPUSCULAR HEMOGLOBIN (BEAKER) (test yxuo=577) 38.4 pg 27.0-33.0 MEAN CORPUSCULAR HEMOGLOBIN CONC (BEAKER) (test juot=031) 35.7 GM/DL 32.0-36.0 RED CELL DISTRIBUTION WIDTH (BEAKER) (test pswj=441) 14.9 % 10.3-14.2 PLATELET COUNT (BEAKER) (test lizh=906) 42 K/CU MM 150-430 MEAN PLATELET VOLUME (BEAKER) (test ptmt=743) 8.2 fL 6.5-10.5 NUCLEATED RED BLOOD CELLS (BEAKER) (test utsk=221) 0 /100 WBC 0-0 0.00CBC W/PLT COUNT & AUTO [id number] 11:29:00* Test Item Value Reference Range Comments WHITE BLOOD CELL COUNT (BEAKER) (test lcsp=573) 3.9 K/ L 4.0-10.0 RED BLOOD CELL COUNT (BEAKER) (test smia=289) 3.02 M/ L 4.00-5.00 HEMOGLOBIN (BEAKER) (test rkun=831) 11.3 GM/DL 12.0-15.0 HEMATOCRIT (BEAKER) (test fxcw=282) 33.4 % 36.0-45.0 MEAN CORPUSCULAR VOLUME (BEAKER) (test uwfr=263) 110.0 fL 82.0-99.0 MEAN CORPUSCULAR HEMOGLOBIN (BEAKER) (test qmrq=572) 37.6 pg 27.0-33.0 MEAN CORPUSCULAR HEMOGLOBIN CONC (BEAKER) (test yqja=653) 34.0 GM/DL 32.0-36.0 RED CELL DISTRIBUTION WIDTH (BEAKER) (test aczz=131) 13.9 % 10.3-14.2 PLATELET COUNT (BEAKER) (test klvu=577) 23 K/CU MM 150-430 MEAN PLATELET VOLUME (BEAKER) (test zayk=327) 9.7 fL 6.5-10.5 NUCLEATED RED BLOOD CELLS (BEAKER) (test crru=627) 0 /100 WBC 0-0 NEUTROPHILS RELATIVE PERCENT (BEAKER) (test lxpw=077) 90 % LYMPHOCYTES RELATIVE PERCENT (BEAKER) (test jvcb=870) 7 % MONOCYTES RELATIVE PERCENT (BEAKER) (test quhq=835) 2 % EOSINOPHILS RELATIVE PERCENT (BEAKER) (test zcmo=652) 0 % BASOPHILS RELATIVE PERCENT (BEAKER) (test dowl=010) 0 % NEUTROPHILS ABSOLUTE COUNT (BEAKER) (test wqlg=465) 3.50 K/ L 1.80-8.00 LYMPHOCYTES ABSOLUTE COUNT (BEAKER) (test xjrs=484) 0.29 K/ L 1.48-4.50 MONOCYTES ABSOLUTE COUNT (BEAKER) (test xlot=914) 0.08 K/ L 0.00-1.30 EOSINOPHILS ABSOLUTE COUNT (BEAKER) (test ahnw=566) 0.01 K/ L 0.00-0.50 BASOPHILS ABSOLUTE COUNT (BEAKER) (test uydz=307) 0.00 K/ L 0.00-0.20 0.00COMPREHENSIVE METABOLIC [id number] 11:13:00* Test Item Value Reference Range Comments TOTAL PROTEIN (BEAKER) (test sape=426) 7.1 gm/dL 6.0-8.3 ALBUMIN (BEAKER) (test ycyu=3031) 3.0 g/dL 3.5-5.0 ALKALINE PHOSPHATASE (BEAKER) (test kqxe=170) 161 U/L 40-150 BILIRUBIN TOTAL (BEAKER) (test vimq=258) 6.0 mg/dL 0.2-1.2 SODIUM (BEAKER) (test isey=587) 134 meq/L 136-145 POTASSIUM (BEAKER) (test xzcg=952) 4.3 meq/L 3.5-5.1 CHLORIDE (BEAKER) (test limo=761) 107 meq/L 98-107 CO2 (BEAKER) (test taei=531) 19 meq/L 22-29 BLOOD UREA NITROGEN (BEAKER) (test vrce=004) 13 mg/dL 7-21 CREATININE (BEAKER) (test znpz=596) 0.54 mg/dL 0.57-1.25 GLUCOSE RANDOM (BEAKER) (test abgc=193) 141 mg/dL 70-105 CALCIUM (BEAKER) (test xeyl=493) 8.5 mg/dL 8.4-10.2 AST (SGOT) (BEAKER) (test ypum=155) 63 U/L 5-34 ALT (SGPT) (BEAKER) (test pqob=646) 36 U/L 6-55 EGFR (BEAKER) (test mxjr=6698) 120 mL/min/1.73 sq m ESTIMATED GFR IS NOT ACCURATE CREATININE CLEARANCE IN PREDICTING GLOMERULAR FILTRATION RATE. ESTIMATED GFR IS NOT APPLICABLE FOR DIALYSIS PATIENTS. Specimen moderately ictericPT/[id number] 11:08:00* Test Item Value Reference Range Comments PROTIME (BEAKER) (test mtwy=852) 17.8 seconds 11.7-14.7 INR (BEAKER) (test vmyd=923) 1.5 <=5.9 PARTIAL THROMBOPLASTIN TIME (BEAKER) (test tbsl=500) 39.3 seconds 22.5-36.0 RECOMMENDED COUMADIN/WARFARIN INR THERAPY RANGESSTANDARD DOSE: 2.0 - 3.0 Inclu tiffanie: PROPHYLAXIS for venous thrombosis, systemic embolization; TREATMENT for hugo ous thrombosis and/or pulmonary embolus.HIGH RISK: Target INR is 2.5-3.5 for pat ients with mechanical heart valves.
[2018-12-20] MEDS ORDERED: FUROSEMIDE20 MG PO (12:12)
[2018-12-20] MEDS ORDERED: XIFAXAN550 MG PO (12:12)
[2018-12-20] MEDS ORDERED: PROPRANOLOL HCL10 MG PO (12:12)
[2018-12-20] MEDS ORDERED: URSODIOL500 MG PO (12:12)
[2018-12-20 13:05] LABS: BASOPHILS % 0.4 % (0.0-1.0); EOSINOPHILS % 1.6 % (0.0-6.0); HEMATOCRIT 30.8 % (34.2-44.1); HEMOGLOBIN 10.4 g/dL (12.0-16.0); LYMPHOCYTES # (AUTO) 0.4 (1.0-3.2); LYMPHOCYTES % 15.8 % (18.0-39.1); MEAN CORPUSCULAR HEMOGLOBIN 35.4 pg (28-32); MEAN CORPUSCULAR HGB CONC 33.8 g/dL (31-35); MEAN CORPUSCULAR VOLUME 104.8 fL (81-99); MONOCYTES # (AUTO) 0.4 (0.2-0.8); MONOCYTES % 15.8 % (4.4-11.3); NEUTROPHILS # (AUTO) 1.6 (2.1-6.9); RED BLOOD COUNT 2.94 x10e6/uL (3.6-5.1); RED CELL DISTRIBUTION WIDTH 16.8 % (11.7-14.4)
[2018-12-20 13:08] LABS: PLATELET COUNT 59 x10e3/uL (140-360)
[2018-12-20 13:12] LABS: INR 1.51; PROTHROMBIN TIME 18.8 seconds (11.9-14.5)
[2018-12-20 13:13] LABS: PARTIAL THROMBOPLASTIN TIME 42.6 seconds (23.8-35.5)
--- NOTE | 2018-12-20 13:14 | Diagnostic Imaging Report ---
Examination: Single AP view of the chest. COMPARISON: 10/06/2018 INDICATION: Confusion DISCUSSION: Lung volumes are low with vascular crowding in the lung bases. Scattered bilateral calcified granulomata. No airspace consolidation, pleural effusion, or pneumothorax. Cardiomediastinal contour and pulmonary vasculature are within normal limits for portable, AP technique. No acute osseous abnormality. IMPRESSION: Low lung volumes without acute cardiopulmonary abnormality. Signed by: Dr. Emmanuel Weeks M.D. on 12/20/2018 1:11 PM
[2018-12-20 13:23] LABS: ALANINE AMINOTRANSFERASE 59 IU/L (0-55); ALBUMIN 2.7 g/dL (3.5-5.0); ALBUMIN/GLOBULIN RATIO 0.5 (0.8-2.0); ALKALINE PHOSPHATASE 166 IU/L (40-150); AMYLASE 115 U/L (25-125); ANION GAP 10.8 mmol/L (8-16); BLOOD UREA NITROGEN 14 mg/dL (7-26); BUN/CREATININE RATIO 22 (6-25); CALCIUM 8.9 mg/dL (8.4-10.2); CARBON DIOXIDE 22 mmol/L (22-29); CHLORIDE 103 mmol/L (98-107); CREATINE KINASE 84 IU/L (29-168); CREATININE, SERUM 0.64 mg/dL (0.57-1.11); EST GLOMERULAR FILTRATION RATE > 60 ML/MIN (60-); GLUCOSE 107 mg/dL (74-118); LIPASE 30 U/L (8-78); MAGNESIUM 1.5 MG/DL (1.3-2.1); POTASSIUM 3.8 mmol/L (3.5-5.1); SODIUM 132 mmol/L (136-145)
[2018-12-20 13:46] LABS: CLARITY,URINE SL CLOUDY (CLEAR); COLOR,URINE YELLOW (YELLOW); LEUKOCYTE ESTERASE ,URINE TRACE (NEGATIVE); NITRITE,URINE NEGATIVE (NEGATIVE); PROTEIN,URINE DIPSTICK NEGATIVE (NEGATIVE)
[2018-12-20 13:47] LABS: BILIRUBIN,URINE 1+ (NEGATIVE); KETONES,URINE NEGATIVE (NEGATIVE); URINE UROBILINOGEN 1 mg/dL (0.2 - 1)
[2018-12-20 14:02] LABS: BACTERIA,URINE MODERATE /HPF; EPITHELIAL CELLS,URINE MANY /LPF
[2018-12-20] MEDS ORDERED: LACTULOSE SYRUP 20 GM/30 ML UDC PO ONE (14:45)
--- NOTE | 2018-12-20 14:48 | Diagnostic Imaging Report ---
EXAMINATION: CT of the abdomen and pelvis without contrast. TECHNIQUE: Spiral CT images of the abdomen and pelvis were performed from the lung bases to the lesser trochanters. No intravenous contrast was given per iodine allergy. Coronal and sagittal reformatted images were obtained. COMPARISON: Abdominal ultrasound 10/06/2018, CT abdomen and pelvis without contrast 02/19/2018 CLINICAL HISTORY:Abdominal pain, history of cirrhosis DISCUSSION: ABSENCE OF INTRAVENOUS CONTRAST DECREASES SENSITIVITY FOR DETECTION OF FOCAL LESIONS AND VASCULAR PATHOLOGY. ABDOMEN/PELVIS: LOWER THORAX: Soft tissue fullness along the distal esophagus and gastroesophageal junction is unchanged and is likely attributable to esophageal varices. Cystic lesion along the cardiac apex is also unchanged. HEPATOBILIARY:Nodular hepatic contour with relative hypertrophy of the left lobe. Dystrophic calcifications in the left hepatic lobe. No focal hepatic lesion. Status post cholecystectomy. SPLEEN: The spleen is enlarged measuring 16.7 cm increasing no caudal span. PANCREAS: No focal masses or ductal dilatation. ADRENALS: No adrenal nodules. KIDNEYS/URETERS: Punctate nonobstructing left renal calculus seen on series 2 image 39. Punctate nonobstructing right lower pole renal calculus seen on series 301 image 85. No hydronephrosis or gross mass lesion. PELVIC ORGANS/BLADDER: Urinary bladder is incompletely distended but otherwise unremarkable. Uterus is not identified and has presumably been resected. No adnexal mass. PERITONEUM/RETROPERITONEUM: Small volume perihepatic and perisplenic ascites, tracking into the pelvis, average internal attenuation 0-5 Hounsfield units. LYMPH NODES: No pelvic sidewall or retroperitoneal lymphadenopathy. Portacaval and gastrohepatic lymph nodes are upper normal in size, measuring up to 1 cm short axis. VESSELS: Limited evaluation without intravenous contrast. The abdominal aorta is nonaneurysmal. Suspected esophageal varices. GI TRACT: The large bowel shows no evidence of distention or wall thickening. Gas and fecal material is noted throughout. The appendix is normal. The stomach is collapsed with prominence of the rugal folds. No small bowel dilatation to suggest obstruction. BONES AND SOFT TISSUES: No osseous destructive lesion. No focal soft tissue abnormality. IMPRESSION: No acute intra-abdominal or pelvic CT abnormalities. Cirrhosis with portal hypertension, evidenced by splenomegaly and small volume ascites. Suspected esophageal varices may be further evaluated by upper endoscopy. Bilateral nonobstructing renal calculi unchanged. Signed by: Dr. Emmanuel Weeks M.D. on 12/20/2018 2:44 PM
[2018-12-20] MEDS ORDERED: SODIUM CHLORIDE FLUSH 10 ML SYR INJ PRN (15:30)
--- OUTSIDE RECORDS SUMMARY | 2018-12-20 15:35 | XMS REPORT | Clinical Summary ---
Author Author [facility] Organization [facility] Address Unknown Phone Unavailable Care Team Providers Care Knockup Worker Name Role Phone Asked, No Pcp PCP [...] [facility] TXP xxxxxxxxx Trans[facility] [address] [facility] xxxxxxxxx HMO/PPO THCARE CHOICE/CHO ICE + [employer] MEDICARE UNITED xxxxxxxxx HMO HEALTHCARE MEDICARE Advance Directives Patient has advance care planning documents on file. For more information, luciano hallman contact: Edis Marc [id number] [place] [address]
--- OUTSIDE RECORDS SUMMARY | 2018-12-20 15:35 | XMS REPORT | Clinical Summary ---
Author Author [facility] Address Unknown Phone Unavailable Care Team Providers Care Inspector Health Care Facilities Name Role Phone Aren Martel Estefani PCP [...] We will also need clearance from her .NET PROGRAMMER oncologist that she does not have any [...] abdominal pain. She met with a local psychologist chief who diagnosed her with an "ovarian tumor" and has referred her to a gynecology oncologist. I have no seen documentation from her .NET PROGRAMMER oncologist but she states that the "ovarian [...] pain; Coagulopathy (HCC); Hepatocellular carcinoma (HCC) 11/29/2018 [facility] General Internal Medicine - Encounter 12/11/2018 11/29/2018 [...] said pt has been in hospital in [facility] since 10/06 i transferred the daughter to [...] transplant status 09/05/2018 Orders Only Lab Tim aRmos MD Awaiting organ transplant status; Cirrhosis of [...] 03/08 mri appt & 03/21 [facility]. Itinerary mailed. ) 02/17/2018 Telephone [...] Lot Implanted Type Area Manufactur er 02/18/2017 [id number] / / [id number] Device Clsr Angio-Seal Vip 6fr Cardiovasc [facility] [id number] - [id number] ular MED:CARDIA Implanted: Qty: 1 on 04/27/2016 [...] 10/24/2018 Awaiting organ transplant DIFFERENTIAL 11:57 AM PAN CLEANER status Cirrhosis of liver with ascites, unspecified hepatic cirrhosis type (HCC) PROTHROMBIN TIME/INR Routine 10/24/2018 Awaiting organ transplant 11:57 AM PAN CLEANER status Cirrhosis of liver with ascites, unspecified hepatic cirrhosis type (HCC) COMPREHENSIVE METABOLIC Routine 10/24/2018 Awaiting organ transplant PANEL 11:57 AM PAN CLEANER status Cirrhosis of liver with ascites, unspecified hepatic cirrhosis type (HCC) CBC W/PLT COUNT & AUTO Routine 10/24/2018 Awaiting organ transplant DIFFERENTIAL 11:57 AM PAN CLEANER status Cirrhosis of liver with ascites, unspecified hepatic cirrhosis type (HCC) BILIRUBIN, DIRECT Routine 10/24/2018 Awaiting organ transplant 11:57 AM PAN CLEANER status Cirrhosis of liver with ascites, unspecified hepatic cirrhosis type (HCC) ALPHA FETOPROTEIN (AFP), Routine 10/24/2018 Awaiting organ transplant TUMOR MARKER 11:57 AM PAN CLEANER status Cancer screening Liver mass Cirrhosis of liver with ascites, unspecified hepatic cirrhosis type (HCC) BILIRUBIN, DIRECT Routine 10/03/2018 Awaiting organ transplant 11:09 AM PAN CLEANER status PROTHROMBIN TIME/INR Routine 10/03/2018 Awaiting organ transplant 11:09 AM PAN CLEANER status CBC W/PLT COUNT & AUTO Routine 10/03/2018 Awaiting organ transplant DIFFERENTIAL 11:09 AM PAN CLEANER status COMPREHENSIVE METABOLIC Routine 10/03/2018 Awaiting organ transplant PANEL 11:09 AM PAN CLEANER status (CELLAVISION MANUAL DIFF) Routine 09/05/2018 Awaiting organ transplant 1:31 PM PAN CLEANER status CBC W/PLT COUNT & AUTO Routine 09/05/2018 Awaiting organ transplant DIFFERENTIAL 1:31 PM PAN CLEANER status PROTHROMBIN TIME/INR Routine 09/05/2018 Awaiting organ transplant 1:31 PM PAN CLEANER status COMPREHENSIVE METABOLIC Routine 09/05/2018 Awaiting organ transplant PANEL 1:31 PM PAN CLEANER status CBC W/PLT COUNT & AUTO Routine 09/05/2018 Awaiting organ transplant DIFFERENTIAL 1:31 PM PAN CLEANER status BILIRUBIN, DIRECT Routine 09/05/2018 Awaiting organ transplant 1:31 PM PAN CLEANER status MR ABDOMEN WITH/WITHOUT Routine 09/05/2018 Awaiting organ transplant IV CONTRAST 1:21 PM PAN CLEANER status Cirrhosis of liver without ascites, unspecified hepatic cirrhosis type (HCC) POCT-CREATININE Routine 09/05/2018 12:48 PM PAN CLEANER XR DXA BONE DENSITY STUDY Routine 07/25/2018 Screening for 12:59 PM PAN CLEANER endocrine/metabolic/immun ity disorders CBC W/PLT COUNT & AUTO Routine 07/25/2018 Awaiting organ transplant DIFFERENTIAL 12:20 PM PAN CLEANER status CBC W/PLT COUNT & AUTO Routine 07/25/2018 Awaiting organ transplant DIFFERENTIAL 12:20 PM PAN CLEANER status PROTHROMBIN TIME/INR Routine 07/25/2018 Awaiting organ transplant 12:19 PM PAN CLEANER status COMPREHENSIVE METABOLIC Routine 07/25/2018 Awaiting organ transplant PANEL 12:19 PM PAN CLEANER status BILIRUBIN, DIRECT Routine 07/25/2018 Awaiting organ transplant 12:19 PM PAN CLEANER status ALPHA FETOPROTEIN (AFP), Routine 07/25/2018 Awaiting organ transplant TUMOR MARKER 12:19 PM PAN CLEANER status Cancer screening ED ECG INTERPRETATION Routine [...] included. WBC 4.5 3.5 - 10.5 K/L [facility] RBC 2.52 (L) 3.93 - 5.22 M/L [facility] Hemoglobin 8.9 (L) 11.2 - 15.7 GM/DL [facility] Hematocrit 26.4 (L) 34.1 - 44.9 % [facility] MCV 104.8 (H) 79.4 - 94.8 fL [facility] MCH 35.3 (H) 25.6 - 32.2 pg [facility] MCHC 33.7 32.2 - 35.5 GM/DL [facility] RDW 15.9 (H) 11.7 - 14.4 % [facility] Platelets 28 (L) 150 - 450 K/CU MM [facility] MPV 11.2 9.4 - 12.3 fL [facility] nRBC 0 0 - 0 /100 WBC [facility] % Neutros 64 % [facility] % Lymphs 19 % [facility] % Monos 15 % [facility] % Eos 1 % [facility] % Baso 1 % [facility] # Neutros 2.85 1.56 - 6.13 K/L [facility] # Lymphs 0.83 (L) 1.18 - 3.74 K/L [facility] # Monos 0.67 (H) 0.24 - 0.36 K/L [facility] # Eos 0.06 0.04 - 0.36 K/L [facility] # Baso 0.03 0.01 - 0.08 K/L [facility] Immature 1 0 - 1 % [facility] Granulocytes-Relative [facility] Specimen Blood Performing Organization Address City/[facility]/Zipcode Phone Number [facility] [address] [place] [address] [facility] * Prothrombin time/INR (12/11/2018 6:41 AM CDT) Only the most recent of 19 results within the time period is included. Protime 19.4 (H) 11.7 - 14.7 seconds [facility] INR 1.6 <=5.9 [facility] Specimen Blood Narrative Performed At RECOMMENDED COUMADIN/WARFARIN INR THERAPY RANGES [facility] STANDARD DOSE: 2.0 - 3.0 Includes: PROPHYLAXIS for venous thrombosis, [facility] systemic embolization; TREATMENT for venous thrombosis and/or pulmonary embolus. HIGH RISK: Target INR is 2.5-3.5 for patients with mechanical heart valves. Performing Organization Address City/[facility]/Zipcode Phone Number [facility] [address] [place] [address] [phone] * Hepatic function panel (12/11/2018 6:41 AM CDT) Only the most recent of 14 results within the time period is included. Protein, Total 8.2 6.0 - 8.3 gm/dL [facility] Albumin 2.5 (L) 3.5 - 5.0 g/dL [facility] Total Bilirubin 7.7 (H) 0.2 - 1.2 mg/dL [facility] Bilirubin, Direct 2.0 (H) 0.1 - 0.5 mg/dL [facility] Alkaline Phosphatase 142 40 - 150 U/L [facility] AST 61 (H) 5 - 34 U/L [facility] ALT 35 6 - 55 U/L [facility] Specimen Blood Narrative Performed At Specimen moderately icteric [facility] Performing Organization Address City/State/Zipcode Phone Number [facility] [address] [place] [address] [phone] [place] [address] * Basic metabolic panel (12/11/2018 6:41 AM CDT) Only the most recent of 14 results within the time period is included. Sodium 131 (L) 136 - 145 meq/L [facility] Potassium 4.5 3.5 - 5.1 meq/L [facility] Chloride 103 98 - 107 meq/L [facility] CO2 26 22 - 29 meq/L [facility] BUN 18 7 - 21 mg/dL [facility] Creatinine 0.62 0.57 - 1.25 mg/dL [facility] Glucose 106 (H) 70 - 105 mg/dL [facility] Calcium 8.5 8.4 - 10.2 mg/dL [facility] EGFR 101Comment: ESTIMATED GFR IS mL/min/1.[address] [facility] NOT ACCURATE CREATININE [facility] CLEARANCE IN PREDICTING GLOMERULAR FILTRATION RATE. ESTIMATED GFR IS NOT APPLICABLE FOR DIALYSIS PATIENTS. Specimen Blood Narrative Performed At Specimen moderately icteric [facility] Performing Organization Address City/State/Zipcode Phone Number [facility] [address] [place] [address] [facility] * Prepare Leuko-Red PLT (12/10/2018 11:54 PM CDT) Only the most recent of 5 results within the time period is included. Unit ABO O Pos [place] UNIT NUMBER [id number] [place] Status [place]_TIMEINCHART [place] Blood Bank Product PLATELETS [place] PRODUCT CODE [id number] [place] Specimen Blood Performing Organization Address City/[facility] Cent[facility]ode Phone Number [place] * Manual Differential (12/10/2018 4:19 AM CDT) Only the most recent of 3 results within the time period is included. % Neutros 78 % [facility] % Lymphs 8 % [facility] % Monos 13 % [facility] % Eos 1 % [facility] # Neutros 2.89 1.56 - 6.13 K/ul [facility] # Lymphs 0.30 (L) 1.18 - 3.74 K/ul [facility] # Monos 0.48 (H) 0.24 - 0.36 K/uL [facility] # Eos 0.04 0.04 - 0.36 K/uL [facility] Total Counted 100 [facility] Smudge Cells Present [facility] Giant Platelet Present [facility] Anisocytosis 1+ few [facility] Poikilocytes 1+ few [facility] Platelet Conc Decreased [facility] Specimen Blood Narrative Performed At Received comment: [facility] User comments: [facility] Slide comments: Performing Organization Address City/[facility] Centercode Phone Number [address] * Transfuse Leuko-Red PLT (12/09/2018 4:57 PM CDT) Only the most recent of 10 results within the time period is included. * Type and screen, automated (12/09/2018 11:28 AM CDT) Only the most recent of 2 results within the time period is included. Ab Scrn NEGATIVE [facility] Specimen Blood Performing Organization Address [facility] Centercode Phone Number [address] * ABORH, manual (12/09/2018 11:28 AM CDT) Only the most recent of 2 results within the time period is included. ABO Grouping A [facility] Rh Factor POS [facility] Specimen Blood Performing Organization Address [facility] Centercode Phone Number [address] * Lipase (12/09/2018 4:11 AM CDT) Only the most recent of 2 results within the time period is included. Lipase 27 8 - 78 U/L [facility] Specimen Blood Narrative Performed At Specimen moderately icteric [facility] Performing Organization Address [facility] Centercode Phone Number [address] * NM bone scan whole body (12/05/2018 3:31 PM CDT) Specimen Narrative Performed At FINAL REPORT [employer] PROCEDURE: BONE SCAN, WHOLE BODY CPT CODE:62638 INDICATION:Liver lesion, exclude metastatic disease. On liver [...] MD Report Verified Date/Time:12/05/2018 16:40:17 Reading Location: [address] Reading Room Procedure Note Interface, External Ris In - 12/05/2018 4:42 PM CDT FINAL REPORT PROCEDURE: BONE SCAN, WHOLE BODY CPT CODE: 73145 INDICATION: Liver lesion, exclude metastatic disease. On [...] Report Verified Date/Time: 12/05/2018 16:40:17 Reading Location: [address] Reading Room Performing Organization Address City/State/Zipcode Phone Number [employer] * CT chest without IV contrast (12/04/2018 9:18 PM CDT) Specimen Narrative Performed At FINAL REPORT [employer] CT scan of the chest. CLINICAL HISTORY: [...] MD Report Verified Date/Time:12/04/2018 23:03:08 Reading Location: [address] Consult Reading Room Procedure Note Interface, [...] Report Verified Date/Time: 12/04/2018 23:03:08 Reading Location: [facility] [id number] Consult Reading Room Performing Organization Address City/[facility] Centercode Phone Number [facility] * Hepatitis B Panel (12/03/2018 12:10 PM CDT) Hep B Core Total Ab REACTIVE (A) Nonreactive [facility] Hep B S Ab 841.0 (H) <8.0 mIU/mL [facility] hepatitis B Surface Ag NON-REACTIVE Nonreactive [facility] Specimen Blood Performing Organization Address [facility] Centercoin Phone Number [address] * Hepatitis C antibody (12/03/2018 12:10 PM CDT) Hepatitis C Ab NON-REACTIVE Nonreactive [facility] Specimen Blood Performing Organization Address [facility] Centercoin Phone Number [address] * Hepatitis B core antibody, total (12/03/2018 12:10 PM CDT) Hep B Core Total Ab REACTIVE (A) Nonreactive [facility] Specimen Blood Performing Organization Address [facility] Phone Number [address] * Iron, TIBC, % sat. (without ferritin) (12/03/2018 4:09 AM CDT) Iron 183.0 (H) 40.0 - 160.0 ug/dL [facility] TIBC 179 (L) 250 - 450 ug/dL [facility] Iron % Saturation 102 (H) 20 - 55 % [facility] Specimen Blood Performing Organization Address City/[facility] Centercode Phone Number [address] * Folate, Serum (12/03/2018 4:09 AM CDT) Folate 11.8 >=7.0 ng/mL [facility] Specimen Blood Performing Organization Address City/[facility] Centercode Phone Number [address] * Ferritin (12/03/2018 4:09 AM CDT) Ferritin 124 5 - 275 ng/mL [facility] Specimen Blood Performing Organization Address [facility] Phone Number [address] * Vitamin B12 (12/03/2018 4:09 AM CDT) Vitamin B12 588 213 - 816 pg/mL [facility] Specimen Blood Performing Organization Address City/[facility] Phone Number [address] * Reticulocyte count (12/02/2018 5:33 AM CDT) % Retic 5.0 (H) 0.5 - 1.7 % [facility] Specimen Blood Performing Organization Address [facility] [place] [address] [phone] [place] [address] * Hepatitis B PCR, quantitative (12/01/2018 5:39 AM CDT) HBV PCR, Quantitative HBV DNA not detected HBV DNA not detected [facility] Specimen Blood Narrative Performed At This test uses a Real-Time Polymerase Chain Reaction (RT-PCR) methodology and [facility] was performed using [employer] AmpliPrep/KIP TaqMan HBV Test, v2.0 (CoverMe [facility] [employer] Reportable range for this assay is 20 - 170,000,000 IU per mL (1.30 - 8.23 Log IU/mL). Performing Organization Address [facility] Centercode Phone Number [address] * Hepatitis B core antibody, IgM (12/01/2018 5:39 AM CDT) Hep B C IgM NON-REACTIVE Nonreactive [facility] Specimen Blood Performing Organization Address City/[facility]ercode Phone Number [address] * Phosphorus (12/01/2018 5:39 AM CDT) Only the most recent of 3 results within the time period is included. Phosphorus 4.1 2.3 - 4.7 mg/dL [facility] Specimen Blood Performing Organization Address City/[facility]coin Phone Number [address] * Magnesium (12/01/2018 5:39 AM CDT) Only the most recent of 3 results within the time period is included. Magnesium 1.5 (L) 1.6 - 2.6 mg/dL [facility] Specimen Blood Performing Organization Address [facility] Phone Number [address] * MR abdomen without & with IV contrast (11/30/2018 12:07 AM CDT) Only the most recent of 3 results within the time period is included. Specimen Narrative Performed At FINAL REPORT [employer] TECHNIQUE: MRI of the abdomen WITHOUT and [...] MD Report Verified Date/Time:11/30/2018 07:35:42 Reading Location: [facility] Diagnostic Imaging Reading Room - [place] [address] Procedure Note Interface, External Ris In - [...] Report Verified Date/Time: 11/30/2018 07:35:42 Reading Location: [facility] Diagnostic Imaging Reading Room - [place] [address] [id number] Performing Organization Address [facility]/Zipcode Phone Number [facility] * PT/aPTT (11/29/2018 9:15 AM CDT) Protime 21.6 (H) 11.7 - 14.7 seconds [facility] INR 1.8 <=5.9 [facility] PTT 35.6 22.5 - 36.0 seconds [facility] Specimen Blood Narrative Performed At RECOMMENDED COUMADIN/WARFARIN INR THERAPY RANGES [facility] STANDARD DOSE: 2.0 - 3.0 Includes: PROPHYLAXIS for venous thrombosis, [facility] systemic embolization; TREATMENT for venous thrombosis and/or pulmonary embolus. HIGH RISK: Target INR is 2.5-3.5 for patients with mechanical heart valves. Performing Organization Address [facility] Centercoin Phone Number [place] [phone] [place] [address] [facility] * Fibrinogen (11/29/2018 9:15 AM CDT) Fibrinogen 118 (L) 225 - 434 mg/dl [facility] Specimen Blood Performing Organization Address [facility] Centercode Phone Number [place] [phone] [place] [address] [facility] * D-dimer (11/29/2018 9:15 AM CDT) D-Dimer, Quant 13.03 (H) <0.50 MG/L FEU [facility] Specimen Blood Narrative Performed At Intended Use: The D-Dimer Assay can be used to aid in the diagnosis of Deep Vein [facility] Thrombosis (DVT) and Pulmonary Embolism Disease (PED). [facility] In patients with low pre-test probability, various studies concerning STA Liatest D-dimer test have reported that with a cutoff value of 0.50 MG/L FEU, the Negative Predictive Value (NPV) regarding the exclusion of thrombosis is within 95-100% range. Performing Organization Address City/[facility] Centercode Phone Number [address] * Peripheral Blood Smear - Hold only (11/29/2018 5:07 AM CDT) Peripheral Smear Save SAVE [facility] Specimen Blood Performing Organization Address [facility] Phone Number [address] * Alpha fetoprotein (AFP), tumor marker (10/24/2018 11:57 AM PAN CLEANER) Only the most recent of 3 results within the time period is included. Alpha-Fetoprotein 2.7 <10.0 ng/mL [facility] Specimen Blood Performing Organization Address [facility] Phone Number [address] * Bilirubin, direct (10/24/2018 11:57 AM PAN CLEANER) Only the most recent of 6 results within the time period is included. Bilirubin, Direct 2.4 (H) 0.1 - 0.5 mg/dL [facility] Specimen Blood Performing Organization Address [facility] Phone Number [address] * Comprehensive metabolic panel (10/24/2018 11:57 AM PAN CLEANER) Only the most recent of 6 results within the time period is included. Protein, Total 7.1 6.0 - 8.3 gm/dL [facility] Albumin 3.0 (L) 3.5 - 5.0 g/dL [facility] Alkaline Phosphatase 154 (H) 40 - 150 U/L [facility] Total Bilirubin 8.7 (H) 0.2 - 1.2 mg/dL [facility] Sodium 140 136 - 145 meq/L [facility] Potassium 4.3 3.5 - 5.1 meq/L [facility] Chloride 108 (H) 98 - 107 meq/L [facility] CO2 26 22 - 29 meq/L [facility] BUN 9 7 - 21 mg/dL [facility] Creatinine 0.54 (L) 0.57 - 1.25 mg/dL [facility] Glucose 98 70 - 105 mg/dL [facility] Calcium 9.1 8.4 - 10.2 mg/dL [facility] AST 63 (H) 5 - 34 U/L [facility] ALT 31 6 - 55 U/L [facility] EGFR 119Comment: ESTIMATED GFR IS mL/min/1.[address] [facility] NOT ACCURATE CREATININE [facility] CLEARANCE IN PREDICTING GLOMERULAR FILTRATION RATE. ESTIMATED GFR IS NOT APPLICABLE FOR DIALYSIS PATIENTS. Specimen Blood Narrative Performed At Specimen moderately icteric [facility] Performing Organization Address City/State/Zipcode Phone Number [facility] [address] [place] [address] [facility] * CBC with platelet count + automated diff (10/03/2018 11:09 AM PAN CLEANER) Only the most recent of 2 results [...] Performing Organization Information: Site ID: [id number] Name: [facility] Address: [address] [place] [phone] Director: Li Alvarenga Performing Organization Address City/State/Zipcode Phone Number [facility] [address] [place] [phone] [facility] * POC-Creatinine (09/05/2018 12:48 PM PAN CLEANER) Only the most recent of 2 results within the time period is included. POC-Creatinine 0.4 (L)Comment: TESTED AT 0.6 - 1.3 mg/dL [address] [address] POC-EGFR 168 mL/min/1.73M2 [facility] Specimen Blood Performing Organization Address City/State/Zipcode Phone Number [address] [address] [facility] * XR dxa bone density study (07/25/2018 12:59 PM PAN CLEANER) Specimen Narrative Performed At FINAL REPORT [facility] Bone mineral density study 07/25/2018 at 1259. CLINICAL INDICATION: Osteoporosis. COMPARISON: None available FINDINGS: Evaluation of the left and right femoral necks and lumbar spine was performed utilizing a [id number] Advance bone densitometer. The left femoral neck [...] MD Report Verified Date/Time:07/25/2018 15:48:51 Reading Location: [facility] Radiology Reading Room Procedure Note Interface, External Ris In - 07/25/2018 3:51 PM PAN CLEANER FINAL REPORT Bone mineral density study 07/25/2018 at 1259. CLINICAL INDICATION: Osteoporosis. COMPARISON: None available FINDINGS: Evaluation of the left and right femoral necks and lumbar spine was performed utilizing a [employer] Advance bone densitometer. The left femoral neck [...] Report Verified Date/Time: 07/25/2018 15:48:51 Reading Location: [facility] Radiology Reading Room Performing Organization Address City/State/Zipcode [...] MD Report Verified Date/Time:05/23/2018 12:16:57 Reading Location: [facility] Radiology Reading Room Procedure Note Interface, External [...] [facility] Reading Room Performing Organization Address City/[facility]/Zipcode Phone Number GE RIS * Troponin I (05/23/2018 11:17 AM CDT) Troponin I <0.01 0.00 - 0.03 ng/mL [facility] Specimen Blood Narrative Performed At Troponin I (TnI) levels must be interpreted in the context of the presenting [facility] symptoms and the clinical findings. Elevated TnI levels indicate myocardial [facility] damage, but are not specific for ischemic heart disease. Elevated TnI levels are seen in patients with other cardiac conditions (including myocarditis and congestive heart failure), and slight TnI elevations occur in patients with other conditions, including sepsis, renal failure, acidosis, acute neurological disease, and persistent tachyarrhythmia. Performing Organization Address [facility] Phone Number [address] * Creatine Kinase (CK), Total and MB (05/23/2018 11:17 AM CDT) Total CK 115 29 - 200 U/L [facility] CK-MB 1.5 0.0 - 6.6 ng/mL [facility] MB Relative Index 1.3 % [facility] Specimen Blood Narrative Performed At CK-MB Reference Range: [facility] <6.7Normal [facility] 6.7-10.0Borderline >10.0 Abnormal Performing Organization Address [facility] Phone Number [facility] [address] [place] [address] [phone] [place] [address] * ECG 12 lead (05/23/2018 10:42 AM CDT) Specimen Narrative Performed At Ventricular Rate 74 BPM GE MUSE Atrial Rate 74 BPM P-R Interval 154 ms QRS Duration 92 ms Q-T Interval 424 ms QTC Calculation(Bazett) 470 ms P Outing 45 degrees R Outing -20 degrees T Outing 68 degrees Normal sinus rhythm Possible Left atrial enlargement Left ventricular hypertrophy Abnormal ECG Confirmed by MD Vj, Chiquita ([id number]) on 05/23/2018 10:07:49 PM Procedure Note Interface, External Ris In - 05/23/2018 10:07 PM CDT Ventricular Rate 74 BPM Atrial Rate 74 BPM P-R Interval 154 ms QRS Duration 92 ms Q-T Interval 424 ms QTC Calculation(Bazett) 470 ms P Outing 45 degrees R Outing -20 degrees T Outing 68 degrees Normal sinus rhythm Possible Left atrial enlargement Left ventricular hypertrophy Abnormal ECG Confirmed by MD Vj, Chiquita ([id number]) on 05/23/2018 10:07:49 PM Performing Organization Address City/State/Zipcode Phone Number GE MUSE after 12/19/2017 Insurance Payer Benefit Subscriber ID Type Phone Address Plan / Group BLUE CROSS/BLUE SHIELD BCBS OS xxxxxxxxxxxxxxx PPO [phone] [id number] POS/PPO/[place] [address] O CARE IMPROVEMENT MEDICARE CARE xxxxxxxxx MGD CARE IMPROVEMEN T PLUS Advance Directives For more information, please contact: [facility] [address] [place] [address] Date Inactivated Comments Code Status Date Activated 12/11/2018 5:15 PM Full Code 11/29/2018 3:39 AM This code status was determined by: Patient 04/27/2016 4:08 PM Full Code 04/27/2016 6:18 AM This code status was determined by: Patient
[2018-12-20] MEDS: ONDANSETRON HCL INJ 2MG/ML 2ML 2 MG/ML VIAL IV PRN ×2 (16:55→23:04)
[2018-12-20] MEDS: CEFEPIME 1GM/NS 0.9% 50 ML 50 ML IV SCH (16:55)
[2018-12-20 17:14] LABS: AMPHETAMINES SCREEN,URINE NEGATIVE (NEGATIVE); BENZODIAZEPINES SCREEN,URINE NEGATIVE (NEGATIVE); PHENCYCLIDINE SCREEN,URINE NEGATIVE (NEGATIVE)
[2018-12-20 17:30] VITALS: BP 105/43
[2018-12-20 18:00] VITALS: BP 109/53
[2018-12-20] MEDS ORDERED: LACTULOSE SYRUP 20 GM/30 ML UDC PO SCH (18:00)
[2018-12-20] MEDS: RIFAXIMIN 550 MG TABLET PO SCH (18:46)
[2018-12-20 18:56] VITALS: BP 119/57
[2018-12-20 18:58] VITALS: BP 119/57
[2018-12-20 19:40] VITALS: BP 114/55
[2018-12-20 23:07] VITALS: BP 109/47
[2018-12-21] VITALS (11 sets, daily range): BP systolic 97–111; BP diastolic 43–55
--- NOTE | 2018-12-21 00:07 | History and Physical ---
CHIEF COMPLAINT: This is a 53-year-old female, patient of mine, presented to the emergency room with complaint of worsening confusion and abdominal pain. HISTORY OF PRESENT ILLNESS: Ms. Nicolás Linton is a 53-year-old female patient with previous history of end-stage liver disease, on liver transplant list and severe liver disease, and according to the family, the patient was having abdominal pain for the last 2 days and the patient was having worsening confusion. As per family, the patient has stopped taking lactulose and was noncompliant with her medication and the patient was very drowsy and sleepy. So, the family brought the patient to the emergency room. Significant recent history, the patient was recently admitted with severe thrombocytopenia and the patient was transferred to [facility] for possible splenectomy as the patient was not responding with IVIG treatment and multiple platelet transfusion. 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 The patient has GERD, UTI, and recent spontaneous bacterial peritonitis. PAST SURGICAL HISTORY: The patient had multiple paracenteses done. The patient is on liver transplant list. MEDICATIONS: See from the list. The patient supposed to be on Levaquin, , trazodone, spironolactone, lactulose, and Protonix. ALLERGIES: NO KNOWN DRUG ALLERGIES. SOCIAL HISTORY: Denies smoking. Denies using alcohol. FAMILY HISTORY: Hypertension and hyperlipidemia. REVIEW OF SYSTEMS: The patient is not able to participate in her detailed review of system examination as the patient is drowsy and not communicating. PHYSICAL EXAMINATION: GENERAL: This is a middle-aged female patient, lying in bed, not in acute distress. VITAL SIGNS: Temperature 99, pulse rate 70, blood pressure 110/70. HEENT: Normocephalic and atraumatic. Marked icterus present. LUNGS: Bilateral equal air entry. No rales. No rhonchi. HEART: S1 and S2. Regular. Systolic murmur present. ABDOMEN: Soft. Bowel sounds present. Hepatosplenomegaly present. Ascites present. NEUROLOGIC: The patient moves all extremities, but higher functions are abnormal. The patient is not communicating, not oriented. EXTREMITIES: Edema present. IMAGING DATA: The patient had a CT scan of the abdomen, found to have cirrhosis with portal hypertension, splenomegaly, and small volume ascites. The patient has esophageal varices and nonobstructing renal calculi present, and nodular liver. The patient had cholecystectomy. Chest x-ray, no significant abnormality. LABORATORY DATA: The patient's white blood count is 2.47 and platelets 59,000. INR is 1.51. Sodium is 132. Urine has moderate bacteria, and ammonia level is very high at 155. ADMITTING IMPRESSION/DIAGNOSES: Acute hepatic encephalopathy with altered mental status, advanced liver cirrhosis, urinary tract infection, thrombocytopenia, and leukopenia. The patient has hepatic tumor and workup will be done by the [facility]. So, the patient will be admitted with above diagnoses of acute mental status changes with hepatic encephalopathy, urinary tract infection, advanced liver cirrhosis, and thrombocytopenia. The patient will be treated with lactulose and ICU monitoring will be done and IV cefepime will be given, and we will obtain Hepatology and GI consult, Dr. Hoffman. We will obtain urine cultures. MD RADHA Eugene/MODL /[id number]
--- NOTE | 2018-12-21 01:42 | Consultation ---
DATE OF CONSULTATION: 12/20/2018 HISTORY OF PRESENT ILLNESS: This is 53 years old, very well known to me, who has a history of cirrhosis, presented to the hospital because of some confusion as well as some abdominal pain. The pain is in the upper abdominal area. Patient's workup with a CAT scan of the abdomen and pelvis shows evidence of cirrhosis, portal hypertension, splenomegaly and small ascites, esophageal apheresis and renal calculi. She was found to have encephalopathy with ammonia level of 155. She also has elevated liver function test, jaundice with a bilirubin high as far as 11.2. She is currently being followed by Dr. Ramos at the [facility]plant [facility] and they apparently found that she has tumor in the liver, however, our CAT scan did not show that. PAST MEDICAL HISTORY: Significant for history of cirrhosis as mentioned before, also history of portal hypertension, previous history of encephalopathy. ALLERGIES: IODINE. SOCIAL HISTORY: No alcohol use. FAMILY HISTORY: Noncontributory. REVIEW OF SYSTEMS: At this point is unobtainable. The patient is confused. PHYSICAL EXAMINATION: GENERAL: Patient is confused, lying in bed, appears to be stable, responds to pain stimulus. VITAL SIGNS: Afebrile currently. HEAD, EYES, EARS, NOSE AND THROAT: Normocephalic, atraumatic. Sclerae anicteric. NECK: Supple. HEART: Regular. ABDOMEN: Soft. There is mild diffuse tenderness. There is no rebound or mass. EXTREMITIES: Demonstrates no clubbing. LABORATORY DATA: Total bilirubin of 11.2, AST of 91, ALT of 59, alkaline phosphatase is 166, ammonia of 155. PT of 18.8, INR 1.55, PTT 42.6. WBC of 2.47, hemoglobin 10.4, hematocrit 30.8 and platelet count is 59,000. CAT scan as mentioned before. IMPRESSION: 1. Hepatic encephalopathy. 2. Cirrhosis. 3. Portal hypertension. 4. pancytopenia. RECOMMENDATION: Continue on lactulose as well as Rifaximin and follow labs clinically. MD JOS Orourke/MODL /[id number] cc: Aren Martel MD
[2018-12-21] MEDS: CEFEPIME 1GM/NS 0.9% 50 ML 50 ML IV SCH ×2 (03:01→17:56)
[2018-12-21 04:56] LABS: BASOPHILS % 0.4 % (0.0-1.0); EOSINOPHILS % 1.5 % (0.0-6.0); HEMATOCRIT 27.2 % (34.2-44.1); HEMOGLOBIN 9.2 g/dL (12.0-16.0); LYMPHOCYTES # (AUTO) 0.6 (1.0-3.2); LYMPHOCYTES % 21.9 % (18.0-39.1); MEAN CORPUSCULAR HEMOGLOBIN 35.8 pg (28-32); MEAN CORPUSCULAR HGB CONC 33.8 g/dL (31-35); MEAN CORPUSCULAR VOLUME 105.8 fL (81-99); MONOCYTES # (AUTO) 0.5 (0.2-0.8); MONOCYTES % 17.2 % (4.4-11.3); NEUTROPHILS # (AUTO) 1.6 (2.1-6.9); RED BLOOD COUNT 2.57 x10e6/uL (3.6-5.1); RED CELL DISTRIBUTION WIDTH 16.8 % (11.7-14.4)
[2018-12-21 05:00] LABS: PLATELET COUNT 44 x10e3/uL (140-360)
[2018-12-21 05:13] LABS: ALANINE AMINOTRANSFERASE 53 IU/L (0-55); ALBUMIN 2.4 g/dL (3.5-5.0); ALBUMIN/GLOBULIN RATIO 0.5 (0.8-2.0); ALKALINE PHOSPHATASE 113 IU/L (40-150); ANION GAP 8.9 mmol/L (8-16); BLOOD UREA NITROGEN 14 mg/dL (7-26); BUN/CREATININE RATIO 24 (6-25); CALCIUM 8.6 mg/dL (8.4-10.2); CARBON DIOXIDE 21 mmol/L (22-29); CHLORIDE 106 mmol/L (98-107); CREATININE, SERUM 0.59 mg/dL (0.57-1.11); EST GLOMERULAR FILTRATION RATE > 60 ML/MIN (60-); GLUCOSE 90 mg/dL (74-118); POTASSIUM 3.9 mmol/L (3.5-5.1); SODIUM 132 mmol/L (136-145)
[2018-12-21] MEDS ORDERED: RIFAXIMIN 550 MG TABLET PO SCH (09:00)
[2018-12-21] MEDS ORDERED: SPIRONOLACTONE 50 MG PO SCH (09:00)
[2018-12-21] MEDS: SPIRONOLACTONE 25 MG TAB PO SCH (09:32)
[2018-12-21] MEDS: PROPRANOLOL HCL 10 MG TAB PO SCH (09:32)
[2018-12-21] MEDS: RIFAXIMIN 550 MG TABLET PO SCH ×2 (09:33→17:55)
[2018-12-21] MEDS: FUROSEMIDE 20 MG TAB PO SCH (09:33)
[2018-12-21] MEDS: PANTOPRAZOLE SOD 40 MG TABEC PO SCH ×2 (09:33→17:55)
[2018-12-21] MEDS: LACTULOSE SYRUP 20 GM/30 ML UDC PO SCH ×2 (09:33→17:55)
[2018-12-21] MEDS: NON-FORMULARY MEDICATION (Ursodiol 500 MG) PO SCH ×2 (10:30→18:30)
[2018-12-21] MEDS: PHENAZOPYRIDINE HCL 100 MG TAB PO SCH ×2 (11:02→17:55)
[2018-12-21] MEDS ORDERED: PHENAZOPYRIDINE HCL 100 MG TAB PO SCH (17:00)
[2018-12-22] VITALS (7 sets, daily range): BP systolic 93–104; BP diastolic 45–53
--- NOTE | 2018-12-22 00:28 | Consultation ---
DATE OF CONSULTATION: REASON FOR CONSULTATION: Fever, chills and altered mental status. HISTORY OF PRESENT ILLNESS: This patient who is currently alert, oriented. She told me when she first came here, she was confused. She was not feeling well. Now, she is having abdominal pain mainly. The patient who is a 53-year-old female, who has history of end-stage liver disease on liver transplant list, history of GERD and UTI before, comes in with confusion, abdominal pain, not feeling well. The patient was noncompliant with her medication. She was brought here, but she is currently on admission, but she is alert, oriented, and follows commands complaining of abdominal pain, which is diffuse. The patient comes here. LABORATORY DATA: Showed a white count of 2.47, hemoglobin of 10. Sodium 132, potassium 3.8, creatinine of 0.64. Her tox screen was negative. The patient is currently on Pyridium, Protonix, lactulose, Lasix, Rifaximin and cefepime. She had a CT of abdomen and pelvis which showed there is no acute finding, but there is liver cirrhosis with portal hypertension. She had a chest x-ray, which was no acute abnormality. PAST MEDICAL HISTORY: Significant for liver cirrhosis. PAST SURGICAL HISTORY: Denies. ALLERGIES: NKA. SOCIAL HISTORY: There is no smoking, drug abuse, or alcohol abuse currently. FAMILY HISTORY: Noncontributory. REVIEW OF SYSTEMS: At the present time: HEENT: There is no headache, visual changes or hearing changes. GI: There is some nausea. There is no vomiting. She had diffuse abdominal pain. : There is no urgency or frequency. SKIN: There is no rash. JOINTS: There is no erythema or edema. After reviewing the record, the patient as mentioned above, she comes here with abdominal pain in the right upper quadrant. Apparently when she came in emergency room, she is complaining of . She was somnolent in triage, but right now she is alert and oriented. The patient was noncompliant. The patient has history of headaches, history of liver cirrhosis, gastroesophageal reflux disease, thrombocytopenia. She had paracentesis. PAST SURGICAL HISTORY: Paracentesis before. IMPRESSION: Abdominal pain, altered mental status and the patient was noncompliant with medication, concerned about infection. She is currently on cefepime. Blood cultures and urine cultures had been ordered. Clinically, she looks better by review of the report from the admission. 1. Pancytopenia. 2. End-stage liver disease. 3. Liver cirrhosis, on transplant list. 4. Portal hypertension. 5. History of esophageal apheresis. 6. History of renal calculi. From Infectious Disease point of view, continue with the above . We will follow on the cultures. We will follow with you. MD CAROLINA Hensley/HELENE /[id number]
[2018-12-22] MEDS: CEFEPIME 1GM/NS 0.9% 50 ML 50 ML IV SCH ×2 (03:30→16:33)
[2018-12-22] MEDS: NON-FORMULARY MEDICATION (Ursodiol 500 MG) PO SCH ×2 (09:00→16:33)
[2018-12-22] MEDS: SPIRONOLACTONE 25 MG TAB PO SCH (10:05)
[2018-12-22] MEDS: FUROSEMIDE 20 MG TAB PO SCH (10:06)
[2018-12-22] MEDS: RIFAXIMIN 550 MG TABLET PO SCH ×2 (10:06→16:33)
[2018-12-22] MEDS: LACTULOSE SYRUP 20 GM/30 ML UDC PO SCH ×2 (10:06→16:33)
[2018-12-22] MEDS: PANTOPRAZOLE SOD 40 MG TABEC PO SCH ×2 (10:06→16:33)
[2018-12-22] MEDS: PHENAZOPYRIDINE HCL 100 MG TAB PO SCH ×2 (10:06→16:33)
[2018-12-22] MEDS: PROPRANOLOL HCL 10 MG TAB PO SCH (10:06)
[2018-12-22] MEDS ORDERED: ONDANSETRON HCL 4 MG ORAL DISINTEGRATING TAB PO PRN (14:15)
[2018-12-23] VITALS (7 sets, daily range): BP systolic 93–105; BP diastolic 39–55
[2018-12-23] MEDS: CEFEPIME 1GM/NS 0.9% 50 ML 50 ML IV SCH ×2 (04:30→15:45)
[2018-12-23 06:30] LABS: ALANINE AMINOTRANSFERASE 57 IU/L (0-55); ALBUMIN 2.1 g/dL (3.5-5.0); ALBUMIN/GLOBULIN RATIO 0.4 (0.8-2.0); ALKALINE PHOSPHATASE 131 IU/L (40-150); ANION GAP 8.3 mmol/L (8-16); BLOOD UREA NITROGEN 15 mg/dL (7-26); BUN/CREATININE RATIO 23 (6-25); CARBON DIOXIDE 21 mmol/L (22-29); CHLORIDE 108 mmol/L (98-107); CREATININE, SERUM 0.64 mg/dL (0.57-1.11); EST GLOMERULAR FILTRATION RATE > 60 ML/MIN (60-); GLUCOSE 98 mg/dL (74-118); POTASSIUM 4.3 mmol/L (3.5-5.1); SODIUM 133 mmol/L (136-145)
[2018-12-23] MEDS: PANTOPRAZOLE SOD 40 MG TABEC PO SCH ×2 (09:22→17:11)
[2018-12-23] MEDS: FUROSEMIDE 20 MG TAB PO SCH (09:22)
[2018-12-23] MEDS: PHENAZOPYRIDINE HCL 100 MG TAB PO SCH ×2 (09:22→17:11)
[2018-12-23] MEDS: RIFAXIMIN 550 MG TABLET PO SCH ×2 (09:23→17:11)
[2018-12-23] MEDS: LACTULOSE SYRUP 20 GM/30 ML UDC PO SCH ×2 (09:23→17:11)
[2018-12-23] MEDS: SPIRONOLACTONE 25 MG TAB PO SCH (09:25)
[2018-12-23] MEDS: PROPRANOLOL HCL 10 MG TAB PO SCH ×2 (09:30→21:00)
[2018-12-23] MEDS: NON-FORMULARY MEDICATION (Ursodiol 500 MG) PO SCH ×2 (09:32→17:56)
[2018-12-23] MEDS ORDERED: DIPHENHYDRAMINE HCL 25 MG CAP PO ONE (21:30)
[2018-12-24] VITALS (8 sets, daily range): BP systolic 93–128; BP diastolic 45–65
[2018-12-24] MEDS: CEFEPIME 1GM/NS 0.9% 50 ML 50 ML IV SCH ×2 (05:00→15:38)
[2018-12-24 07:23] LABS: BASOPHILS % 0.8 % (0.0-1.0); EOSINOPHILS # (AUTO) 0.1 (0.0-0.4); EOSINOPHILS % 1.9 % (0.0-6.0); HEMATOCRIT 28.8 % (34.2-44.1); HEMOGLOBIN 9.6 g/dL (12.0-16.0); LYMPHOCYTES # (AUTO) 0.7 (1.0-3.2); MEAN CORPUSCULAR HEMOGLOBIN 35.6 pg (28-32); MEAN CORPUSCULAR HGB CONC 33.3 g/dL (31-35); MEAN CORPUSCULAR VOLUME 106.7 fL (81-99); MONOCYTES # (AUTO) 0.6 (0.2-0.8); NEUTROPHILS # (AUTO) 1.3 (2.1-6.9); NEUTROPHILS % 49.2 % (38.7-80.0); RED CELL DISTRIBUTION WIDTH 16.5 % (11.7-14.4)
[2018-12-24 07:26] LABS: PLATELET COUNT 29 x10e3/uL (140-360)
[2018-12-24 08:08] LABS: LYMPHOCYTES % (MANUAL) 26 % (19-48); MONOCYTES % (MANUAL) 20 % (3.4-9.0); NEUTROPHILS % (MANUAL) 53 % (40-74)
[2018-12-24 08:09] LABS: LARGE PLATELETS FEW; PLATELET ESTIMATE MARKEDLY DECREASED; PLATELET MORPHOLOGY COMMENT NORMAL
[2018-12-24 08:10] LABS: RBC MORPHOLOGY COMMENT ABNORMAL
[2018-12-24] MEDS: PROPRANOLOL HCL 10 MG TAB PO SCH ×2 (09:00→21:10)
[2018-12-24] MEDS: NON-FORMULARY MEDICATION (Ursodiol 500 MG) PO SCH ×2 (09:00→17:00)
[2018-12-24] MEDS: SPIRONOLACTONE 25 MG TAB PO SCH (09:52)
[2018-12-24] MEDS: PHENAZOPYRIDINE HCL 100 MG TAB PO SCH ×2 (09:53→17:13)
[2018-12-24] MEDS: PANTOPRAZOLE SOD 40 MG TABEC PO SCH ×2 (09:53→17:13)
[2018-12-24] MEDS: RIFAXIMIN 550 MG TABLET PO SCH ×2 (09:53→17:13)
[2018-12-24] MEDS: FUROSEMIDE 20 MG TAB PO SCH (09:53)
[2018-12-24] MEDS: LACTULOSE SYRUP 20 GM/30 ML UDC PO SCH ×2 (09:53→17:13)
[2018-12-24] MEDS: DIPHENHYDRAMINE HCL 25 MG CAP PO PRN (21:13)
[2018-12-25] VITALS: BP 103/52
--- NOTE | 2018-12-25 03:34 | Consultation ---
DATE OF CONSULTATION: DATE OF CONSULTATION: . CONSULTING PHYSICIAN: Dr. Luis Angel Rodarte, Hematology-Oncology Service. REASON FOR CONSULTATION: Evaluation management of the patient with thrombocytopenia. HISTORY OF PRESENTING ILLNESS: Ms. Nicolás Greene is a very pleasant 53-year-old female, who is very well known to me as she is my clinic patient and has complicated past medical history including known history of liver cirrhosis, severe thrombocytopenia with baseline count around 20,000 to 30,000, hepatosplenomegaly and gastroparesis, who was presently in consideration for liver transplantation. She has been following up at [facility]. Recently, she was hospitalized due to severe thrombocytopenia requiring a steroid and IVIG without much response. She was transferred to [facility] and underwent treatment with endplate with good response. She was discharged with instruction to follow up with the Pain [facility] for continuation of endplate treatment. However, she has presented to the hospital due to abdominal pain. Initial workup revealed elevated ammonia level causing encephalopathy as well as jaundice with bilirubin of 11.2. She was seen and evaluated by GI. Hematology-Oncology has been consulted to assist with the management. Presently, she is lying comfortably, not in acute distress, breathing normally. Denies any nausea, vomiting. Abdominal pain is improved. She is still feeling fatigued and tired. She has not had endplate treatment for last two weeks. PAST MEDICAL HISTORY: 1. Liver cirrhosis, on liver transplant. 2. Thrombocytopenia, requiring a stimulant. 3. Recurrent ascites, requiring paracentesis. 4. Gastroparesis. 5. Hepatosplenomegaly. PAST SURGICAL HISTORY: 1. Cardiac catheterization. 2. Multiple paracentesis. 3. Multiple EGD and colonoscopy. FAMILY HISTORY: Positive for diabetes and hypertension. SOCIAL HISTORY: Denies history of alcohol use, illicit drug use, or history of smoking. ALLERGIES: IODINE. CURRENT MEDICATIONS: Reviewed as per electronic medical record. REVIEW OF SYSTEMS: A 14-point review of systems negative except as mentioned per history of present illness. PHYSICAL EXAMINATION: VITAL SIGNS: Reviewed as per electronic medical record. HEENT: PERRLA. Extraocular movements intact. Head is atraumatic and normocephalic. NECK: Supple. CVS: S1, S2 audible. RESPIRATORY: Decreased bilateral air entry. ABDOMEN: Soft. Positive bowel sounds. EXTREMITIES: Trace edema. NEUROLOGIC: The patient is alert, awake. LABORATORY DATA: Reviewed and as per electronic medical record. ASSESSMENT AND PLAN: Ms. Nicolás Greene is a very pleasant 53-year-old female, who is very well known to me and has advanced liver cirrhosis causing hepatic splenomegaly and severe thrombocytopenia. She also has developed alloimmunization, requiring IVIG and steroid treatment without much response. She was recently transferred to [facility] and started on antiplatelet therapy with good response. Now, she is hospitalized due to abdominal pain and confusion. She is noted to have jaundice as well as encephalopathy. GI is already onboard and the patient was started on lactulose with improvement in symptoms. Hematology-Oncology has been consulted to assist with the management. I have reviewed the record as well as with the patient about her current disease and importance of continuation of thrombopoietin therapy. She needs to be on the endplate on weekly basis. I have discussed her case in detail with Dr. Ramos. She had developed severe thrombocytopenia due to the combination of underlying liver cirrhosis as well as alloimmunization. For now, platelet count is in reasonable range, though it is trending down. We will closely monitor. Thank you for the consult. I will continue to be available. Please call with questions. MD YANN Logan/MODL /[id number]
[2018-12-25] MEDS: CEFEPIME 1GM/NS 0.9% 50 ML 50 ML IV SCH (04:28)
[2018-12-25] MEDS: DIPHENHYDRAMINE HCL 25 MG CAP PO PRN (05:14)
[2018-12-25 05:27] VITALS: BP 92/44
[2018-12-25 06:38] LABS: BASOPHILS % 0.7 % (0.0-1.0); EOSINOPHILS # (AUTO) 0.1 (0.0-0.4); EOSINOPHILS % 1.8 % (0.0-6.0); HEMATOCRIT 28.4 % (34.2-44.1); HEMOGLOBIN 9.6 g/dL (12.0-16.0); LYMPHOCYTES # (AUTO) 0.7 (1.0-3.2); MEAN CORPUSCULAR HGB CONC 33.8 g/dL (31-35); MEAN CORPUSCULAR VOLUME 106.4 fL (81-99); MONOCYTES # (AUTO) 0.5 (0.2-0.8); MONOCYTES % 18.5 % (4.4-11.3); NEUTROPHILS # (AUTO) 1.5 (2.1-6.9); NEUTROPHILS % 53.3 % (38.7-80.0); RED BLOOD COUNT 2.67 x10e6/uL (3.6-5.1)
[2018-12-25 06:43] LABS: INR 1.7; PROTHROMBIN TIME 20.6 seconds (11.9-14.5)
[2018-12-25 06:46] LABS: ALANINE AMINOTRANSFERASE 80 IU/L (0-55); ALBUMIN 2.3 g/dL (3.5-5.0); ALBUMIN/GLOBULIN RATIO 0.5 (0.8-2.0); ALKALINE PHOSPHATASE 159 IU/L (40-150); BILIRUBIN,DIRECT 3.1 mg/dL (0.0-0.5); BLOOD UREA NITROGEN 17 mg/dL (7-26); BUN/CREATININE RATIO 25 (6-25); CALCIUM 8.5 mg/dL (8.4-10.2); CARBON DIOXIDE 23 mmol/L (22-29); CHLORIDE 103 mmol/L (98-107); CREATININE, SERUM 0.68 mg/dL (0.57-1.11); EST GLOMERULAR FILTRATION RATE > 60 ML/MIN (60-); GLUCOSE 90 mg/dL (74-118); SODIUM 131 mmol/L (136-145)
[2018-12-25 06:50] LABS: PLATELET COUNT 20 x10e3/uL (140-360)
[2018-12-25 07:55] VITALS: BP 90/51
[2018-12-25] MEDS: RIFAXIMIN 550 MG TABLET PO SCH (08:26)
[2018-12-25] MEDS: NON-FORMULARY MEDICATION (Ursodiol 500 MG) PO SCH (08:26)
[2018-12-25] MEDS: PANTOPRAZOLE SOD 40 MG TABEC PO SCH (08:26)
[2018-12-25] MEDS: PHENAZOPYRIDINE HCL 100 MG TAB PO SCH (08:26)
[2018-12-25] MEDS: LACTULOSE SYRUP 20 GM/30 ML UDC PO SCH (08:26)
[2018-12-25] MEDS: SPIRONOLACTONE 25 MG TAB PO SCH (08:26)
[2018-12-25] MEDS: FUROSEMIDE 20 MG TAB PO SCH (08:26)
--- NOTE | 2018-12-26 08:41 | Discharge Summary ---
HISTORY: She is a 53-year-old female patient with previous history of end-stage liver disease, on liver transplant list. The patient has a very advanced liver disease. She presented to the emergency room with a complaint of altered mental status as per the family, they have brought the patient, patient was confused and disoriented and having abdominal pain. ADMITTING IMPRESSION AND DIAGNOSES: Hepatic encephalopathy with advanced liver failure, abdominal pain with a UTI, severe thrombocytopenia, liver cirrhosis, hypertension, and anemia. HOSPITAL COURSE SUMMARY: The patient was admitted with above diagnosis and the patient was started on IV antibiotics, cefepime. The patient was given lactulose. The patient was monitored in the ICU. With lactulose and antibiotic treatment, the patient improved. The patient has GI and ID consult done and hematology consultation was done. Apparently, the patient was moved to the [facility]. The patient was stabilized and now upon stabilization, the patient will be discharged home with oral antibiotics. The patient's urine culture was negative. Blood cultures did not grew anything. The patient's platelet count was kept on dropping, it is now 20,000. The patient is going to need outpatient followup with a Hematology and the patient will need outpatient therapy. The patient will resume her Lasix, Aldactone, propranolol, lactulose and and patient was advised to take lactulose regularly. The patient was advised to follow up with me in the next two days. MD RADHA Eugene/HELENE /[id number]
== END 2018-12-25 10:45 | disposition home or self-care (01) | DRG 442 ==
LOC: ER 11:03 → ERHOLD 15:23 → ICU 17:21 → IMCU 12-21 11:57 → MED/SURG3 12-24 10:38
PROVIDERS: ADMIT Internal Medicine; ATTEND Internal Medicine
DX: K72.00 Acute and subacute hepatic failure without coma (principal); N39.0 Urinary tract infection, site not specified; D61.818 Other pancytopenia; K76.6 Portal hypertension; R18.8 Other ascites; D69.6 Thrombocytopenia, unspecified; D72.819 Decreased white blood cell count, unspecified; I10 Essential (primary) hypertension; D64.9 Anemia, unspecified; L29.9 Pruritus, unspecified; Z91.19 Patient's noncompliance with other medical treatment and regimen; Z76.82 Awaiting organ transplant status; K74.60 Unspecified cirrhosis of liver
CPT/HCPCS: 36415; 71045; 74176; 80053; 80307; 81001; 82105; 82140; 82150; 82248; 82550; 82553; 83690; 83735; 84484; 85025; 85610; 85730; 87040; 87086; 93005; 96367; 99284; J0692; J2405

== ENCOUNTER 2018-12-31 21:13 | Inpatient (IN) | payer OTHER, BC ==
[~2018-12-31] VITALS: Ht 157.5 cm; Wt 99.3 kg
[~2018-12-31 21:13] MED LIST changes: +FUROSEMIDE20 MG PO; +PROPRANOLOL HCL10 MG PO; +SPIRONOLACTONE25 MG PO; +TRAZODONE HCL100 MG PO; +URSODIOL500 MG PO; +XIFAXAN550 MG PO
--- OUTSIDE RECORDS SUMMARY | 2018-12-31 21:15 | XMS REPORT | Clinical Summary ---
Author Author [facility] Organization [facility] [facility] Address Unknown Phone Unavailable Care Team Providers Care Medical Billing Associate Name Role Phone Asked, No Pcp PCP [...] INFLUENZA VACCINE 03/22/2019 Results Not on fileafter 12/30/2017 Insurance Payer Benefit Subscriber ID Type Phone Address Plan / Group [employer] TXP xxxxxxxxx Transplant CARE [facility] [address] [facility] xxxxxxxxx HMO/PPO THCARE CHOICE/CHO ICE + UHC MEDICARE UNITED xxxxxxxxx HMO HEALTHCARE MEDICARE Advance Directives Patient has advance care planning documents on file. For more information, luciano hallman contact: Edis Marc [address] [place] [address]
--- OUTSIDE RECORDS SUMMARY | 2018-12-31 21:16 | XMS REPORT | Clinical Summary ---
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 She met with a local perch machine inspector who diagnosed her with an "ovarian tumor" and has referred her to a gynecology oncologist. I have no seen documentation from her FIXED ROUTE OPERATOR oncologist but she states that the [...] encephalopathy Encounters Care Team Description Date Type Test ArchitectMarleny Pino RN Liver mass (Primary Dx); Awaiting organ transplant status; Hepatic cirrhosis, unspecified hepatic cirrhosis type, unspecified whether ascites present (HCC); Cancer screening 12/28/2018 Orders Only Transplant Hepatology Marleny Pino RN Follow-up 12/28/2018 Telephone Transplant Hepatology Tim Ramos MD Sood, Christiano Escamilla MD Awaiting organ transplant status 12/19/2018 Follow-Up [...] pain; Coagulopathy (HCC); Hepatocellular carcinoma (HCC) 11/29/2018 [facility] Internal Medicine - Encounter 12/11/2018 11/29/2018 Travel [...] said pt has been in hospital in [facility] since 10/06 i transferred the daughter to speak [place]. Itinerary mailed. ) 10/12/2018 Telephone Transplant Hepatology Stella Hamilton RN 10/04/2018 Documentation Transplant Hepatology Monika Vanegas Appointment (Scheduled 11/30 mri & confirmed 10/24 clinic appt w/pt. Itinerary mailed.) 10/03/2018 Telephone Transplant Hepatology Monika Vanegas Appointment (LVM. Calling to schedule mri due mid november.) 10/03/2018 Telephone Transplant Hepatology Marleny Pino RN Awaiting organ transplant status 10/02/2018 Orders Only Transplant Hepatology Marleny Pino RN Awaiting organ transplant status (Primary Dx) 10/02/2018 Orders Only Transplant Hepatology Marleny Pino RN Awaiting organ transplant status (Primary Dx) 10/02/2018 Orders Only Transplant Hepatology Marleny Pino RN Hepatic lesion (Primary Dx); Awaiting organ transplant status; Cancer screening 10/02/2018 Orders Only Transplant Hepatology Marleny Pino [...] appt w/daughter. Itinerary mailed.) 08/31/2018 Telephone Transplant Hepatology Marleny Pino RN Follow-up 08/07/2018 Telephone Transplant Hepatology Tim Ramos MD Screening for endocrine/metabolic/immunity disorders 07/25/2018 Hospital Encounter Tim Ramos MD Mindikoglu, Ayse Leyla, MD [facility] Decompensated hepatic cirrhosis (HCC) (Primary Dx); Awaiting organ transplant status; Cancer screening; Portal hypertension (HCC); Portal hypertensive gastropathy (HCC); Hepatic encephalopathy (HCC); Immunity status testing; Screening for malignant neoplasm; Other ascites; Immunization counseling; Pedal edema; Screening for colon cancer 07/25/2018 Follow-Up Transplant Hepatology Monika Vanegas Appointment (Confirmed 07/25 appt w/pt.) 07/24/2018 Telephone Transplant Hepatology Marleny Pino, RN Screening for endocrine/metabolic/immunity disorders (Primary Dx) [...] type (HCC) 05/23/2018 Follow-Up Transplant Hepatology Marleny Pino, RN Awaiting organ transplant status (Primary Dx); [...] Marleny Pino RN Follow-up 03/28/2018 Telephone Transplant HepatMarleny Bradley RN Follow-up 03/23/2018 Telephone Transplant Hepatology Monika [...] 03/08 mri appt & 03/21 clinic & feghali appt w/pt. Itinerary mailed. ) 02/17/2018 Telephone Transplant Hepatology Marleny Pino RN Awaiting organ transplant status (Primary Dx) 02/17/2018 Orders Only Transplant Hepatology after 12/30/2017 Family History Medical History Relation Name Comments [...] Lot Implanted Type Area Manufactur er 02/18/2017 [id number] / / [id number] Device Clsr Angio-Seal Vip 6fr Cardiovasc [facility] [id number] - [id number] ular MED:CARDIA Implanted: Qty: 1 on 04/27/2016 [...] 10/24/2018 Awaiting organ transplant DIFFERENTIAL 11:57 AM AIR EXPORT COORDINATOR status Cirrhosis of liver with ascites, unspecified hepatic cirrhosis type (HCC) PROTHROMBIN TIME/INR Routine 10/24/2018 Awaiting organ transplant 11:57 AM AIR EXPORT COORDINATOR status Cirrhosis of liver with ascites, unspecified hepatic cirrhosis type (HCC) COMPREHENSIVE METABOLIC Routine 10/24/2018 Awaiting organ transplant PANEL 11:57 AM AIR EXPORT COORDINATOR status Cirrhosis of liver with ascites, unspecified hepatic cirrhosis type (HCC) CBC W/PLT COUNT & AUTO Routine 10/24/2018 Awaiting organ transplant DIFFERENTIAL 11:57 AM AIR EXPORT COORDINATOR status Cirrhosis of liver with ascites, unspecified hepatic cirrhosis type (HCC) BILIRUBIN, DIRECT Routine 10/24/2018 Awaiting organ transplant 11:57 AM AIR EXPORT COORDINATOR status Cirrhosis of liver with ascites, unspecified hepatic cirrhosis type (HCC) ALPHA FETOPROTEIN (AFP), Routine 10/24/2018 Awaiting organ transplant TUMOR MARKER 11:57 AM AIR EXPORT COORDINATOR status Cancer screening Liver mass Cirrhosis of liver with ascites, unspecified hepatic cirrhosis type (HCC) BILIRUBIN, DIRECT Routine 10/03/2018 Awaiting organ transplant 11:09 AM AIR EXPORT COORDINATOR status PROTHROMBIN TIME/INR Routine 10/03/2018 Awaiting organ transplant 11:09 AM AIR EXPORT COORDINATOR status CBC W/PLT COUNT & AUTO Routine 10/03/2018 Awaiting organ transplant DIFFERENTIAL 11:09 AM AIR EXPORT COORDINATOR status COMPREHENSIVE METABOLIC Routine 10/03/2018 Awaiting organ transplant PANEL 11:09 AM AIR EXPORT COORDINATOR status (CELLAVISION MANUAL DIFF) Routine 09/05/2018 Awaiting organ transplant 1:31 PM AIR EXPORT COORDINATOR status CBC W/PLT COUNT & AUTO Routine 09/05/2018 Awaiting organ transplant DIFFERENTIAL 1:31 PM AIR EXPORT COORDINATOR status PROTHROMBIN TIME/INR Routine 09/05/2018 Awaiting organ transplant 1:31 PM AIR EXPORT COORDINATOR status COMPREHENSIVE METABOLIC Routine 09/05/2018 Awaiting organ transplant PANEL 1:31 PM AIR EXPORT COORDINATOR status CBC W/PLT COUNT & AUTO Routine 09/05/2018 Awaiting organ transplant DIFFERENTIAL 1:31 PM AIR EXPORT COORDINATOR status BILIRUBIN, DIRECT Routine 09/05/2018 Awaiting organ transplant 1:31 PM AIR EXPORT COORDINATOR status MR ABDOMEN WITH/WITHOUT Routine 09/05/2018 Awaiting organ transplant IV CONTRAST 1:21 PM AIR EXPORT COORDINATOR status Cirrhosis of liver without ascites, unspecified hepatic cirrhosis type (HCC) POCT-CREATININE Routine 09/05/2018 12:48 PM AIR EXPORT COORDINATOR XR DXA BONE DENSITY STUDY Routine 07/25/2018 Screening for 12:59 PM AIR EXPORT COORDINATOR endocrine/metabolic/immun ity disorders CBC W/PLT COUNT & AUTO Routine 07/25/2018 Awaiting organ transplant DIFFERENTIAL 12:20 PM AIR EXPORT COORDINATOR status CBC W/PLT COUNT & AUTO Routine 07/25/2018 Awaiting organ transplant DIFFERENTIAL 12:20 PM AIR EXPORT COORDINATOR status PROTHROMBIN TIME/INR Routine 07/25/2018 Awaiting organ transplant 12:19 PM AIR EXPORT COORDINATOR status COMPREHENSIVE METABOLIC Routine 07/25/2018 Awaiting organ transplant PANEL 12:19 PM AIR EXPORT COORDINATOR status BILIRUBIN, DIRECT Routine 07/25/2018 Awaiting organ transplant 12:19 PM AIR EXPORT COORDINATOR status ALPHA FETOPROTEIN (AFP), Routine 07/25/2018 Awaiting organ transplant TUMOR MARKER 12:19 PM AIR EXPORT COORDINATOR status Cancer screening ED ECG INTERPRETATION Routine [...] TUMOR MARKER 9:46 AM CDT status after 12/30/2017 Results * RHYTHM STRIP - SCAN (12/12/2018 [...] included. WBC 4.5 3.5 - 10.5 K/L [facility] RBC 2.52 (L) 3.93 - 5.22 M/L [facility] Hemoglobin 8.9 (L) 11.2 - 15.7 GM/DL [facility] Hematocrit 26.4 (L) 34.1 - 44.9 % [facility] MCV 104.8 (H) 79.4 - 94.8 fL [facility] MCH 35.3 (H) 25.6 - 32.2 pg [facility] MCHC 33.7 32.2 - 35.5 GM/DL [facility] RDW 15.9 (H) 11.7 - 14.4 % [facility] Platelets 28 (L) 150 - 450 K/CU MM [facility] MPV 11.2 9.4 - 12.3 fL [facility] nRBC 0 0 - 0 /100 WBC [facility] % Neutros 64 % [facility] % Lymphs 19 % [facility] % Monos 15 % [facility] % Eos 1 % [facility] % Baso 1 % [facility] # Neutros 2.85 1.56 - 6.13 K/L [facility] # Lymphs 0.83 (L) 1.18 - 3.74 K/L [facility] # Monos 0.67 (H) 0.24 - 0.36 K/L [facility] # Eos 0.06 0.04 - 0.36 K/L [facility] # Baso 0.03 0.01 - 0.08 K/L [facility] Immature 1 0 - 1 % [facility] Granulocytes-Relative [facility] Specimen Blood Performing Organization Address City/State/Zipcode Phone Number [facility] [address] [place] [address] MEDICAL CENTER * Prothrombin time/INR (12/11/2018 6:41 AM CDT) Only the most recent of 19 results within the time period is included. Protime 19.4 (H) 11.7 - 14.7 seconds [facility] INR 1.6 <=5.9 [facility] Specimen Blood Narrative Performed At RECOMMENDED COUMADIN/WARFARIN INR THERAPY RANGES [facility] STANDARD DOSE: 2.0 - 3.0 Includes: PROPHYLAXIS for venous thrombosis, [facility] systemic embolization; TREATMENT for venous thrombosis and/or pulmonary embolus. HIGH RISK: Target INR is 2.5-3.5 for patients with mechanical heart valves. Performing Organization Address [facility] Hospital[facility] Phone Number [facility] [address] [place] [address] [facility] * Hepatic function panel (12/11/2018 6:41 AM CDT) Only the most recent of 14 results within the time period is included. Protein, Total 8.2 6.0 - 8.3 gm/dL [facility] Albumin 2.5 (L) 3.5 - 5.0 g/dL [facility] Total Bilirubin 7.7 (H) 0.2 - 1.2 mg/dL [facility] Bilirubin, Direct 2.0 (H) 0.1 - 0.5 mg/dL [facility] Alkaline Phosphatase 142 40 - 150 U/L [facility] AST 61 (H) 5 - 34 U/L [facility] ALT 35 6 - 55 U/L [facility] Specimen Blood Narrative Performed At Specimen moderately icteric [facility] Performing Organization Address City/State/Zipcode Phone Number [facility] [address] [place] [address] [facility] * Basic metabolic panel (12/11/2018 6:41 AM CDT) Only the most recent of 14 results within the time period is included. Sodium 131 (L) 136 - 145 meq/L [facility] Potassium 4.5 3.5 - 5.1 meq/L [facility] Chloride 103 98 - 107 meq/L [facility] CO2 26 22 - 29 meq/L [facility] BUN 18 7 - 21 mg/dL [facility] Creatinine 0.62 0.57 - 1.25 mg/dL [facility] Glucose 106 (H) 70 - 105 mg/dL [facility] Calcium 8.5 8.4 - 10.2 mg/dL [facility] EGFR 101Comment: ESTIMATED GFR IS mL/min/1.[address] [facility] NOT ACCURATE CREATININE [facility] CLEARANCE IN PREDICTING GLOMERULAR FILTRATION RATE. ESTIMATED GFR IS NOT APPLICABLE FOR DIALYSIS PATIENTS. Specimen Blood Narrative Performed At Specimen moderately icteric [facility] Performing Organization Address City/[facility]/Zipcode Phone Number [facility] [address] [place] [address] MEDICAL CENTER * Prepare Leuko-Red PLT (12/10/2018 11:54 PM CDT) Only the most recent of 5 results within the time period is included. Unit ABO O Pos [place] UNIT NUMBER [id number] [place] Status TX_TIMEINCHART [place] Blood Bank Product PLATELETS [place] PRODUCT CODE [id number] [place] Specimen Blood Performing Organization Address City/[facility] Phone Number [place] * Manual Differential (12/10/2018 4:19 AM CDT) Only the most recent of 3 results within the time period is included. % Neutros 78 % [facility] % Lymphs 8 % [facility] % Monos 13 % [facility] % Eos 1 % [facility] # Neutros 2.89 1.56 - 6.13 K/ul [facility] # Lymphs 0.30 (L) 1.18 - 3.74 K/ul [facility] # Monos 0.48 (H) 0.24 - 0.36 K/uL [facility] # Eos 0.04 0.04 - 0.36 K/uL [facility] Total Counted 100 [facility] Smudge Cells Present [facility] Giant Platelet Present [facility] Anisocytosis 1+ few [facility] Poikilocytes 1+ few [facility] Platelet Conc Decreased [facility] Specimen Blood Narrative Performed At Received comment: [facility] User comments: [facility] Slide comments: Performing Organization Address [facility] Hospitalcode Phone Number [address] * Transfuse Leuko-Red PLT (12/09/2018 4:57 PM CDT) Only the most recent of 10 results within the time period is included. * Type and screen, automated (12/09/2018 11:28 AM CDT) Only the most recent of 2 results within the time period is included. Ab Scrn NEGATIVE [facility] Specimen Blood Performing Organization Address [facility] [place] [address] [phone] [place] [address] * ABORH, manual (12/09/2018 11:28 AM CDT) Only the most recent of 2 results within the time period is included. ABO Grouping A [facility] Rh Factor POS [facility] Specimen Blood Performing Organization Address [facility] [place] [phone] [place] [address] * Lipase (12/09/2018 4:11 AM CDT) Only the most recent of 2 results within the time period is included. Lipase 27 8 - 78 U/L [facility] Specimen Blood Narrative Performed At Specimen moderately icteric [facility] Performing Organization Address [facility] Hospitalcode Phone Number [address] [address] [phone] [place] [address] * NM bone scan whole body (12/05/2018 3:31 PM CDT) Specimen Narrative Performed At FINAL REPORT [facility] PROCEDURE: BONE SCAN, WHOLE BODY CPT CODE:[id number] INDICATION:Liver lesion, exclude metastatic disease. On liver [...] MD Report Verified Date/Time:12/05/2018 16:40:17 Reading Location: [address] [employer] Reading Room Procedure Note Interface, External Ris In - 12/05/2018 4:42 PM CDT FINAL REPORT PROCEDURE: BONE SCAN, WHOLE BODY CPT CODE: [id number] INDICATION: Liver lesion, exclude metastatic disease. On [...] Report Verified Date/Time: 12/05/2018 16:40:17 Reading Location: [address] [facility] Reading Room Performing Organization Address City/State/Zipcode Phone Number [facility] * CT chest without IV contrast (12/04/2018 9:18 PM CDT) Specimen Narrative Performed At FINAL REPORT [facility] CT scan of the chest. CLINICAL HISTORY: [...] MD Report Verified Date/Time:12/04/2018 23:03:08 Reading Location: [address] Consult Reading Room Procedure Note Interface, [...] Report Verified Date/Time: 12/04/2018 23:03:08 Reading Location: [facility] [id number] Consult Reading Room Performing Organization Address City/[facility] Hospital[facility] Phone Number GE [facility] * Hepatitis B Panel (12/03/2018 12:10 PM CDT) Hep B Core Total Ab REACTIVE (A) Nonreactive [facility] Hep B S Ab 841.0 (H) <8.0 mIU/mL [facility] hepatitis B Surface Ag NON-REACTIVE Nonreactive [facility] Specimen Blood Performing Organization Address [facility] Phone Number [address] * Hepatitis C antibody (12/03/2018 12:10 PM CDT) Hepatitis C Ab NON-REACTIVE Nonreactive [facility] Specimen Blood Performing Organization Address [facility] Phone Number [address] * Hepatitis B core antibody, total (12/03/2018 12:10 PM CDT) Hep B Core Total Ab REACTIVE (A) Nonreactive [facility] Specimen Blood Performing Organization Address [facility] Phone Number [address] * Iron, TIBC, % sat. (without ferritin) (12/03/2018 4:09 AM CDT) Iron 183.0 (H) 40.0 - 160.0 ug/dL [facility] TIBC 179 (L) 250 - 450 ug/dL [facility] Iron % Saturation 102 (H) 20 - 55 % [facility] Specimen Blood Performing Organization Address City/[facility] Phone Number [address] * Folate, Serum (12/03/2018 4:09 AM CDT) Folate 11.8 >=7.0 ng/mL [facility] Specimen Blood Performing Organization Address [facility] Phone Number [address] * Ferritin (12/03/2018 4:09 AM CDT) Ferritin 124 5 - 275 ng/mL [facility] Specimen Blood Performing Organization Address City/[facility] Phone Number [address] * Vitamin B12 (12/03/2018 4:09 AM CDT) Vitamin B12 588 213 - 816 pg/mL [facility] Specimen Blood Performing Organization Address City/[facility] Phone Number [address] * Reticulocyte count (12/02/2018 5:33 AM CDT) % Retic 5.0 (H) 0.5 - 1.7 % [facility] Specimen Blood Performing Organization Address [facility] Phone Number [address] * Hepatitis B PCR, quantitative (12/01/2018 5:39 AM CDT) HBV PCR, Quantitative HBV DNA not detected HBV DNA not detected [facility] Specimen Blood Narrative Performed At This test uses a Real-Time Polymerase Chain Reaction (RT-PCR) methodology and [facility] was performed using [employer] AmpliPrep/KIP TaqMan HBV Test, v2.0 (PureSense [facility] [employer] Reportable range for this assay is 20 - 170,000,000 IU per mL (1.30 - 8.23 Log IU/mL). Performing Organization Address City/[facility] Phone Number [address] * Hepatitis B core antibody, IgM (12/01/2018 5:39 AM CDT) Hep B C IgM NON-REACTIVE Nonreactive [facility] Specimen Blood Performing Organization Address [facility] Phone Number [address] * Phosphorus (12/01/2018 5:39 AM CDT) Only the most recent of 3 results within the time period is included. Phosphorus 4.1 2.3 - 4.7 mg/dL [facility] Specimen Blood Performing Organization Address [facility] Phone Number [address] * Magnesium (12/01/2018 5:39 AM CDT) Only the most recent of 3 results within the time period is included. Magnesium 1.5 (L) 1.6 - 2.6 mg/dL [facility] Specimen Blood Performing Organization Address [facility] Phone Number [address] * MR abdomen without & with IV contrast (11/30/2018 12:07 AM CDT) Only the most recent of 3 results within the time period is included. Specimen Narrative Performed At FINAL REPORT [facility] TECHNIQUE: MRI of the abdomen WITHOUT and [...] MD Report Verified Date/Time:11/30/2018 07:35:42 Reading Location[facility] Diagnostic Imaging Reading Room - [place] [address] Procedure Note Interface, External Ris In - [...] Report Verified Date/Time: 11/30/2018 07:35:42 Reading Location[facility] Diagnostic Imaging Reading Room - [place] [address] Performing Organization Address City/[facility]/Zipcode Phone Number GE RIS * PT/aPTT (11/29/2018 9:15 AM CDT) Protime 21.6 (H) 11.7 - 14.7 seconds [facility] INR 1.8 <=5.9 [facility] PTT 35.6 22.5 - 36.0 seconds [facility] Specimen Blood Narrative Performed At RECOMMENDED COUMADIN/WARFARIN INR THERAPY RANGES [facility] STANDARD DOSE: 2.0 - 3.0 Includes: PROPHYLAXIS for venous thrombosis, [facility] systemic embolization; TREATMENT for venous thrombosis and/or pulmonary embolus. HIGH RISK: Target INR is 2.5-3.5 for patients with mechanical heart valves. Performing Organization Address City/State/Zipcode Phone Number [facility] [address] [place] [address] MEDICAL CENTER * Fibrinogen (11/29/2018 9:15 AM CDT) Fibrinogen 118 (L) 225 - 434 mg/dl [facility] Specimen Blood Performing Organization Address City/[facility]/Zipcode Phone Number [phone] [place] [address] * D-dimer (11/29/2018 9:15 AM CDT) D-Dimer, Quant 13.03 (H) <0.50 MG/L FEU [facility] Specimen Blood Narrative Performed At Intended Use: The D-Dimer Assay can be used to aid in the diagnosis of Deep Vein [facility] Thrombosis (DVT) and Pulmonary Embolism Disease (PED). [facility] In patients with low pre-test probability, various studies concerning STA Liatest D-dimer test have reported that with a cutoff value of 0.50 MG/L FEU, the Negative Predictive Value (NPV) regarding the exclusion of thrombosis is within 95-100% range. Performing Organization Address City/State/[facility] Phone Number [address] * Peripheral Blood Smear - Hold only (11/29/2018 5:07 AM CDT) Peripheral Smear Save SAVE [facility] Specimen Blood Performing Organization Address City/[facility] Phone Number [address] * Alpha fetoprotein (AFP), tumor marker (10/24/2018 11:57 AM AIR EXPORT COORDINATOR) Only the most recent of 3 results within the time period is included. Alpha-Fetoprotein 2.7 <10.0 ng/mL [facility] Specimen Blood Performing Organization Address City/[facility] Phone Number [address] [address] [phone] [place] [address] * Bilirubin, direct (10/24/2018 11:57 AM AIR EXPORT COORDINATOR) Only the most recent of 6 results within the time period is included. Bilirubin, Direct 2.4 (H) 0.1 - 0.5 mg/dL [facility] Specimen Blood Performing Organization Address City/[facility] Phone Number [id number] [facility] * Comprehensive metabolic panel (10/24/2018 11:57 AM AIR EXPORT COORDINATOR) Only the most recent of 6 results within the time period is included. Protein, Total 7.1 6.0 - 8.3 gm/dL [facility] Albumin 3.0 (L) 3.5 - 5.0 g/dL [facility] Alkaline Phosphatase 154 (H) 40 - 150 U/L [facility] Total Bilirubin 8.7 (H) 0.2 - 1.2 mg/dL [facility] Sodium 140 136 - 145 meq/L [facility] Potassium 4.3 3.5 - 5.1 meq/L [facility] Chloride 108 (H) 98 - 107 meq/L [facility] CO2 26 22 - 29 meq/L [facility] BUN 9 7 - 21 mg/dL [facility] Creatinine 0.54 (L) 0.57 - 1.25 mg/dL [facility] Glucose 98 70 - 105 mg/dL [facility] Calcium 9.1 8.4 - 10.2 mg/dL [facility] AST 63 (H) 5 - 34 U/L [facility] ALT 31 6 - 55 U/L [facility] EGFR 119Comment: ESTIMATED GFR IS mL/min/1.[address] [facility] NOT ACCURATE CREATININE [facility] CLEARANCE IN PREDICTING GLOMERULAR FILTRATION RATE. ESTIMATED GFR IS NOT APPLICABLE FOR DIALYSIS PATIENTS. Specimen Blood Narrative Performed At Specimen moderately icteric [facility] Performing Organization Address City/State/Zipcode Phone Number [facility] [address] [place] [address] [facility] * CBC with platelet count + automated diff (10/03/2018 11:09 AM AIR EXPORT COORDINATOR) Only the most recent of 2 results [...] Performing Organization Information: Site ID: [id number] Name: [facility] Address: [address] [place] [address] Director: Li Alvarenga Performing Organization Address City/State/Zipcode Phone Number [facility] [address] [place] [address] [facility] * POC-Creatinine (09/05/2018 12:48 PM AIR EXPORT COORDINATOR) Only the most recent of 2 results within the time period is included. POC-Creatinine 0.4 (L)Comment: TESTED AT 0.6 - 1.3 mg/dL [facility] [address] [facility] [address] POC-EGFR 168 mL/min/1.73M2 [facility] Specimen Blood Performing Organization Address City/State/Zipcode Phone Number [facility] [address] [place] [address] [facility] * XR dxa bone density study (07/25/2018 12:59 PM AIR EXPORT COORDINATOR) Specimen Narrative Performed At FINAL REPORT [facility] Bone mineral density study 07/25/2018 at 1259. CLINICAL INDICATION: Osteoporosis. COMPARISON: None available FINDINGS: Evaluation of the left and right femoral necks and lumbar spine was performed utilizing a [employer] Advance bone densitometer. The left femoral neck [...] MD Report Verified Date/Time:07/25/2018 15:48:51 Reading Location: [facility] Radiology Reading Room Procedure Note Interface, External Ris In - 07/25/2018 3:51 PM AIR EXPORT COORDINATOR FINAL REPORT Bone mineral density study 07/25/2018 at 1259. CLINICAL INDICATION: Osteoporosis. COMPARISON: None available FINDINGS: Evaluation of the left and right femoral necks and lumbar spine was performed utilizing a [employer] Advance bone densitometer. The left femoral neck [...] Report Verified Date/Time: 07/25/2018 15:48:51 Reading Location: [facility] Radiology Reading Room Performing Organization Address City/State/Zipcode Phone Number [facility] * ED ECG Interpretation (05/23/2018 1:18 [...] CDT) Specimen Narrative Performed At FINAL REPORT [facility] Chest one view INDICATION: Shortness of breath COMPARISON: 11/05/2016 IMPRESSION: Previously seen right upper lobe nodularity is not apparent on this study. There are coarsened interstitial markings. No focal consolidation, edema, pleural effusion, or pneumothorax is seen. The cardiomediastinal silhouette is unremarkable. The bones appear intact. Signed: Eric Velazquez MD Report Verified Date/Time:05/23/2018 12:16:57 Reading Location: [facility] Radiology Reading Room Procedure Note [...] Report Verified Date/Time: 05/23/2018 12:16:57 Reading Location: [facility] Radiology Reading Room Performing Organization Address City/[facility] Phone Number GE [facility]IS * Troponin I (05/23/2018 11:17 AM CDT) Troponin I <0.01 0.00 - 0.03 ng/mL [facility] Specimen Blood Narrative Performed At Troponin I (TnI) levels must be interpreted in the context of the presenting [facility] symptoms and the clinical findings. Elevated TnI levels indicate myocardial [facility] damage, but are not specific for ischemic heart disease. Elevated TnI levels are seen in patients with other cardiac conditions (including myocarditis and congestive heart failure), and slight TnI elevations occur in patients with other conditions, including sepsis, renal failure, acidosis, acute neurological disease, and persistent tachyarrhythmia. Performing Organization Address [facility] Hospitalcomd Phone Number [address] * Creatine Kinase (CK), Total and MB (05/23/2018 11:17 AM CDT) Total CK 115 29 - 200 U/L [facility] CK-MB 1.5 0.0 - 6.6 ng/mL [facility] MB Relative Index 1.3 % [facility] Specimen Blood Narrative Performed At CK-MB Reference Range: [facility] <6.7Normal [facility] 6.7-10.0Borderline >10.0 Abnormal Performing Organization Address [facility] Hospital[facility]d Phone Number [address] [facility] * ECG 12 lead (05/23/2018 10:42 AM CDT) Specimen Narrative Performed At Ventricular Rate 74 BPM GE MUSE Atrial Rate 74 BPM P-R Interval 154 ms QRS Duration 92 ms Q-T Interval 424 ms QTC Calculation(Bazett) 470 ms P Frederick 45 degrees R Frederick -20 degrees T Frederick 68 degrees Normal sinus rhythm Possible Left atrial enlargement Left ventricular hypertrophy Abnormal ECG Confirmed by MD Vj, Chiquita ([id number]) on 05/23/2018 10:07:49 PM Procedure Note Interface, External Ris In - 05/23/2018 10:07 PM CDT Ventricular Rate 74 BPM Atrial Rate 74 BPM P-R Interval 154 ms QRS Duration 92 ms Q-T Interval 424 ms QTC Calculation(Bazett) 470 ms P Frederick 45 degrees R Frederick -20 degrees T Frederick 68 degrees Normal sinus rhythm Possible Left atrial enlargement Left ventricular hypertrophy Abnormal ECG Confirmed by MD Vj, Chiquita ([id number]) on 05/23/2018 10:07:49 PM Performing Organization Address City/State/Zipcode Phone Number [facility] M[facility] after 12/30/2017 Insurance Payer Benefit Subscriber ID Type Phone Address Plan / Group BLUE CROSS/BLUE SHIELD BCBS OS xxxxxxxxxxxxxxx PPO [phone] [address] POS/PPO/[place] [address] O CARE IMPROVEMENT MEDICARE CARE xxxxxxxxx MGD CARE IMPROVEMEN T PLUS Advance Directives For more information, please contact: [facility] [address] [place] [address] Date Inactivated Comments Code Status Date Activated 12/11/2018 5:15 PM Full Code 11/29/2018 3:39 AM This code status was determined by: Patient 04/27/2016 4:08 PM Full Code 04/27/2016 6:18 AM This code status was determined by: Patient
[2018-12-31] MEDS ORDERED: ACETAMINOPHEN 325 MG TAB PO ONE (22:00)
[2018-12-31 22:58] LABS: BILIRUBIN,URINE 1+ (NEGATIVE); CLARITY,URINE CLOUDY (CLEAR); COLOR,URINE ORANGE (YELLOW); KETONES,URINE TRACE (NEGATIVE); LEUKOCYTE ESTERASE ,URINE TRACE (NEGATIVE); NITRITE,URINE POSITIVE (NEGATIVE); PROTEIN,URINE DIPSTICK 1+ (NEGATIVE); URINE UROBILINOGEN 1 mg/dL (0.2 - 1); WBC,URINE (MAN) 0-5 /HPF (0-5)
[2018-12-31 22:59] LABS: BACTERIA,URINE FEW /HPF; EPITHELIAL CELLS,URINE MANY /LPF
--- NOTE | 2018-12-31 23:45 | NUR ---
REPORT GIVEN TO JEFF GARCIA. PENDING PICC LINE PLACEMENT, V/S/S.
[2019-01-01] VITALS (8 sets, daily range): BP systolic 91–106; BP diastolic 46–52
[2019-01-01 00:23] LABS: BASOPHILS % 0.1 % (0.0-1.0); EOSINOPHILS # (AUTO) 0.2 (0.0-0.4); EOSINOPHILS % 2.2 % (0.0-6.0); HEMATOCRIT 29.6 % (34.2-44.1); HEMOGLOBIN 10.1 g/dL (12.0-16.0); LYMPHOCYTES # (AUTO) 0.5 (1.0-3.2); LYMPHOCYTES % 6.6 % (18.0-39.1); MEAN CORPUSCULAR HEMOGLOBIN 36.9 pg (28-32); MEAN CORPUSCULAR HGB CONC 34.1 g/dL (31-35); MONOCYTES # (AUTO) 0.6 (0.2-0.8); MONOCYTES % 7.1 % (4.4-11.3); NEUTROPHILS # (AUTO) 6.7 (2.1-6.9); NEUTROPHILS % 83.6 % (38.7-80.0); RED BLOOD COUNT 2.74 x10e6/uL (3.6-5.1); RED CELL DISTRIBUTION WIDTH 17.9 % (11.7-14.4)
[2019-01-01 00:28] LABS: PLATELET COUNT 17 x10e3/uL (140-360)
[2019-01-01 00:29] LABS: INR 1.81; PROTHROMBIN TIME 21.6 seconds (11.9-14.5)
--- NOTE | 2019-01-01 00:29 | Diagnostic Imaging Report ---
Examination: Single AP view of the chest. COMPARISON: Dec 20 2018 INDICATION: Fever DISCUSSION: Lines/tubes: None. Lungs: Scattered calcified granuloma. No pneumonia or pulmonary edema. Pleura: No pleural effusion or pneumothorax. Heart and mediastinum: The heart and the mediastinum are unremarkable. Bones and soft tissues: No acute bony abnormalities. IMPRESSION: 1. No acute cardiopulmonary abnormalities. Signed by: Dr. Akbar Mayfield M.D. on 01/01/2019 12:26 AM
[2019-01-01 00:30] LABS: PARTIAL THROMBOPLASTIN TIME 47.8 seconds (23.8-35.5)
[2019-01-01 00:39] LABS: ALANINE AMINOTRANSFERASE 46 IU/L (0-55); ALBUMIN 2.5 g/dL (3.5-5.0); ALBUMIN/GLOBULIN RATIO 0.5 (0.8-2.0); ALKALINE PHOSPHATASE 120 IU/L (40-150); AMYLASE 57 U/L (25-125); ANION GAP 12.3 mmol/L (8-16); BLOOD UREA NITROGEN 23 mg/dL (7-26); BUN/CREATININE RATIO 29 (6-25); CALCIUM 8.9 mg/dL (8.4-10.2); CARBON DIOXIDE 23 mmol/L (22-29); CHLORIDE 104 mmol/L (98-107); EST GLOMERULAR FILTRATION RATE > 60 ML/MIN (60-); GLUCOSE 99 mg/dL (74-118); LIPASE 21 U/L (8-78); POTASSIUM 4.3 mmol/L (3.5-5.1); SODIUM 135 mmol/L (136-145)
[2019-01-01 00:42] LABS: CREATINE KINASE 53 IU/L (29-168)
[2019-01-01] MEDS ORDERED: SODIUM CHLORIDE 0.9% 500ML 500 ML IV ONE (00:45)
[2019-01-01 00:46] LABS: EOSINOPHILS % (MANUAL) 1 % (0-7); LYMPHOCYTES % (MANUAL) 6 % (19-48); MONOCYTES % (MANUAL) 8 % (3.4-9.0); NEUTROPHILS % (MANUAL) 85 % (40-74)
[2019-01-01 00:47] LABS: ANISOCYTOSIS MODERATE; PLATELET ESTIMATE MARKEDLY DECREASED; PLATELET MORPHOLOGY COMMENT NORMAL; RBC MORPHOLOGY COMMENT ABNORMAL
[2019-01-01] MEDS ORDERED: ONDANSETRON HCL INJ 2MG/ML 2ML 2 MG/ML VIAL IV PRN (01:15)
[2019-01-01] MEDS: CEFEPIME 1GM/NS 0.9% 50 ML 50 ML IV SCH ×2 (01:18→13:15)
--- OUTSIDE RECORDS SUMMARY | 2019-01-01 01:24 | XMS REPORT | Clinical Summary ---
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 For more information, luciano hallman contact: Edis Marc [address] [place] [address]
--- OUTSIDE RECORDS SUMMARY | 2019-01-01 01:25 | XMS REPORT | Clinical Summary ---
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 She met with a local hot blast worker who diagnosed her with an "ovarian tumor" and has referred her to a gynecology oncologist. I have no seen documentation from her REPRODUCTION MACHINE LOADER oncologist but she states that the "ovarian [...] encephalopathy Encounters Care Team Description Date Type Sampler Radioactive WasteMarleny Pino RN Liver mass (Primary Dx); Awaiting [...] Coagulopathy (HCC); Hepatocellular carcinoma (HCC) 11/29/2018 [facility] Internal Medicine - Encounter 12/11/2018 11/29/2018 [...] said pt has been in hospital in [facility] since 10/06 i transferred the daughter to [...] Tim Ramos MD Mindikoglu, Ayse Leyla, MD [facility] Decompensated hepatic cirrhosis (HCC) (Primary Dx); [...] Dx) 02/17/2018 Orders Only Transplant Hepatology after 12/31/2017 Family History Medical History Relation Name Comments [...] Lot Implanted Type Area Manufactur er 02/18/2017 [id number] / / [id number] Device Clsr Angio-Seal Vip 6fr Cardiovasc [facility] [id number] - [id number] ular MED:CARDIA Implanted: Qty: 1 on 04/27/2016 [...] 10/24/2018 Awaiting organ transplant DIFFERENTIAL 11:57 AM BRICK SETTER status Cirrhosis of liver with ascites, unspecified hepatic cirrhosis type (HCC) PROTHROMBIN TIME/INR Routine 10/24/2018 Awaiting organ transplant 11:57 AM BRICK SETTER status Cirrhosis of liver with ascites, unspecified hepatic cirrhosis type (HCC) COMPREHENSIVE METABOLIC Routine 10/24/2018 Awaiting organ transplant PANEL 11:57 AM BRICK SETTER status Cirrhosis of liver with ascites, unspecified hepatic cirrhosis type (HCC) CBC W/PLT COUNT & AUTO Routine 10/24/2018 Awaiting organ transplant DIFFERENTIAL 11:57 AM BRICK SETTER status Cirrhosis of liver with ascites, unspecified hepatic cirrhosis type (HCC) BILIRUBIN, DIRECT Routine 10/24/2018 Awaiting organ transplant 11:57 AM BRICK SETTER status Cirrhosis of liver with ascites, unspecified hepatic cirrhosis type (HCC) ALPHA FETOPROTEIN (AFP), Routine 10/24/2018 Awaiting organ transplant TUMOR MARKER 11:57 AM BRICK SETTER status Cancer screening Liver mass Cirrhosis of liver with ascites, unspecified hepatic cirrhosis type (HCC) BILIRUBIN, DIRECT Routine 10/03/2018 Awaiting organ transplant 11:09 AM BRICK SETTER status PROTHROMBIN TIME/INR Routine 10/03/2018 Awaiting organ transplant 11:09 AM BRICK SETTER status CBC W/PLT COUNT & AUTO Routine 10/03/2018 Awaiting organ transplant DIFFERENTIAL 11:09 AM BRICK SETTER status COMPREHENSIVE METABOLIC Routine 10/03/2018 Awaiting organ transplant PANEL 11:09 AM BRICK SETTER status (CELLAVISION MANUAL DIFF) Routine 09/05/2018 Awaiting organ transplant 1:31 PM BRICK SETTER status CBC W/PLT COUNT & AUTO Routine 09/05/2018 Awaiting organ transplant DIFFERENTIAL 1:31 PM BRICK SETTER status PROTHROMBIN TIME/INR Routine 09/05/2018 Awaiting organ transplant 1:31 PM BRICK SETTER status COMPREHENSIVE METABOLIC Routine 09/05/2018 Awaiting organ transplant PANEL 1:31 PM BRICK SETTER status CBC W/PLT COUNT & AUTO Routine 09/05/2018 Awaiting organ transplant DIFFERENTIAL 1:31 PM BRICK SETTER status BILIRUBIN, DIRECT Routine 09/05/2018 Awaiting organ transplant 1:31 PM BRICK SETTER status MR ABDOMEN WITH/WITHOUT Routine 09/05/2018 Awaiting organ transplant IV CONTRAST 1:21 PM BRICK SETTER status Cirrhosis of liver without ascites, unspecified hepatic cirrhosis type (HCC) POCT-CREATININE Routine 09/05/2018 12:48 PM BRICK SETTER XR DXA BONE DENSITY STUDY Routine 07/25/2018 Screening for 12:59 PM BRICK SETTER endocrine/metabolic/immun ity disorders CBC W/PLT COUNT & AUTO Routine 07/25/2018 Awaiting organ transplant DIFFERENTIAL 12:20 PM BRICK SETTER status CBC W/PLT COUNT & AUTO Routine 07/25/2018 Awaiting organ transplant DIFFERENTIAL 12:20 PM BRICK SETTER status PROTHROMBIN TIME/INR Routine 07/25/2018 Awaiting organ transplant 12:19 PM BRICK SETTER status COMPREHENSIVE METABOLIC Routine 07/25/2018 Awaiting organ transplant PANEL 12:19 PM BRICK SETTER status BILIRUBIN, DIRECT Routine 07/25/2018 Awaiting organ transplant 12:19 PM BRICK SETTER status ALPHA FETOPROTEIN (AFP), Routine 07/25/2018 Awaiting organ transplant TUMOR MARKER 12:19 PM BRICK SETTER status Cancer screening ED ECG INTERPRETATION Routine [...] TUMOR MARKER 9:46 AM CDT status after 12/31/2017 Results * RHYTHM STRIP - SCAN (12/12/2018 [...] included. WBC 4.5 3.5 - 10.5 K/L [facility] RBC 2.52 (L) 3.93 - 5.22 M/L [facility] Hemoglobin 8.9 (L) 11.2 - 15.7 GM/DL [facility] Hematocrit 26.4 (L) 34.1 - 44.9 % [facility] MCV 104.8 (H) 79.4 - 94.8 fL [facility] MCH 35.3 (H) 25.6 - 32.2 pg [facility] MCHC 33.7 32.2 - 35.5 GM/DL [facility] RDW 15.9 (H) 11.7 - 14.4 % [facility] Platelets 28 (L) 150 - 450 K/CU MM [facility] MPV 11.2 9.4 - 12.3 fL [facility] nRBC 0 0 - 0 /100 WBC [facility] % Neutros 64 % [facility] % Lymphs 19 % [facility] % Monos 15 % [facility] % Eos 1 % [facility] % Baso 1 % [facility] # Neutros 2.85 1.56 - 6.13 K/L [facility] # Lymphs 0.83 (L) 1.18 - 3.74 K/L [facility] # Monos 0.67 (H) 0.24 - 0.36 K/L [facility] # Eos 0.06 0.04 - 0.36 K/L [facility] # Baso 0.03 0.01 - 0.08 K/L [facility] Immature 1 0 - 1 % [facility] Granulocytes-Relative [facility] Specimen Blood Performing Organization Address City/State/Zipcode Phone Number [facility] [address] [place] [address] MED[facility]ENTER * Prothrombin time/INR (12/11/2018 6:41 AM CDT) Only the most recent of 19 results within the time period is included. Protime 19.4 (H) 11.7 - 14.7 seconds [facility] INR 1.6 <=5.9 [facility] Specimen Blood Narrative Performed At RECOMMENDED COUMADIN/WARFARIN INR THERAPY RANGES [facility] STANDARD DOSE: 2.0 - 3.0 Includes: PROPHYLAXIS for venous thrombosis, [facility] systemic embolization; TREATMENT for venous thrombosis and/or pulmonary embolus. HIGH RISK: Target INR is 2.5-3.5 for patients with mechanical heart valves. Performing Organization Address [facility]/[place] [facility] Cent[facility]ode Phone Number [facility] [address] [place] [address] [facility] * Hepatic function panel (12/11/2018 6:41 AM CDT) Only the most recent of 14 results within the time period is included. Protein, Total 8.2 6.0 - 8.3 gm/dL [facility] Albumin 2.5 (L) 3.5 - 5.0 g/dL [facility] Total Bilirubin 7.7 (H) 0.2 - 1.2 mg/dL [facility] Bilirubin, Direct 2.0 (H) 0.1 - 0.5 mg/dL [facility] Alkaline Phosphatase 142 40 - 150 U/L [facility] AST 61 (H) 5 - 34 U/L [facility] ALT 35 6 - 55 U/L [facility] Specimen Blood Narrative Performed At Specimen moderately icteric [facility] Performing Organization Address City/State/Zipcode Phone Number [facility] [address] [place] [address] [facility] * Basic metabolic panel (12/11/2018 6:41 AM CDT) Only the most recent of 14 results within the time period is included. Sodium 131 (L) 136 - 145 meq/L [facility] Potassium 4.5 3.5 - 5.1 meq/L [facility] Chloride 103 98 - 107 meq/L [facility] CO2 26 22 - 29 meq/L [facility] BUN 18 7 - 21 mg/dL [facility] Creatinine 0.62 0.57 - 1.25 mg/dL [facility] Glucose 106 (H) 70 - 105 mg/dL [facility] Calcium 8.5 8.4 - 10.2 mg/dL [facility] EGFR 101Comment: ESTIMATED GFR IS mL/min/1.73 sq m [facility] NOT ACCURATE CREATININE [facility] CLEARANCE IN PREDICTING GLOMERULAR FILTRATION RATE. ESTIMATED GFR IS NOT APPLICABLE FOR DIALYSIS PATIENTS. Specimen Blood Narrative Performed At Specimen moderately icteric [facility] Performing Organization Address City/[facility]/Zipcode Phone Number [facility] [address] [place] [address] MEDICAL [facility]ENTER * Prepare Leuko-Red PLT (12/10/2018 11:54 PM CDT) Only the most recent of 5 results within the time period is included. Unit ABO O Pos [place] UNIT NUMBER [id number] [place] Status TX_TIMEINCHART [place] Blood Bank Product PLATELETS [place] PRODUCT CODE [id number] [place] Specimen Blood Performing Organization Address City/[facility]/[place] [facility] Centercode Phone Number [place] * Manual Differential (12/10/2018 4:19 AM CDT) Only the most recent of 3 results within the time period is included. % Neutros 78 % [facility] % Lymphs 8 % [facility] % Monos 13 % [facility] % Eos 1 % [facility] # Neutros 2.89 1.56 - 6.13 K/ul [facility] # Lymphs 0.30 (L) 1.18 - 3.74 K/ul [facility] # Monos 0.48 (H) 0.24 - 0.36 K/uL [facility] # Eos 0.04 0.04 - 0.36 K/uL [facility] Total Counted 100 [facility] Smudge Cells Present [facility] Giant Platelet Present [facility] Anisocytosis 1+ few [facility] Poikilocytes 1+ few [facility] Platelet Conc Decreased [facility] Specimen Blood Narrative Performed At Received comment: [facility] User comments: [facility] Slide comments: Performing Organization Address [facility]/[place] [facility] Centercode Phone Number [address] * Transfuse Leuko-Red PLT (12/09/2018 4:57 PM CDT) Only the most recent of 10 results within the time period is included. * Type and screen, automated (12/09/2018 11:28 AM CDT) Only the most recent of 2 results within the time period is included. Ab Scrn NEGATIVE [facility] Specimen Blood Performing Organization Address [facility] [place] [address] [phone] [place] [address] * ABORH, manual (12/09/2018 11:28 AM CDT) Only the most recent of 2 results within the time period is included. ABO Grouping A [facility] Rh Factor POS [facility] Specimen Blood Performing Organization Address [facility] [place] [address] [phone] [place] [address] * Lipase (12/09/2018 4:11 AM CDT) Only the most recent of 2 results within the time period is included. Lipase 27 8 - 78 U/L [facility] Specimen Blood Narrative Performed At Specimen moderately icteric [facility] Performing Organization Address [facility]/[place] [facility] Centercode Phone Number [address] [address] [phone] [place] [address] * NM bone scan whole body (12/05/2018 3:31 PM CDT) Specimen Narrative Performed At FINAL REPORT [facility] PROCEDURE: BONE SCAN, WHOLE BODY CPT CODE:30397 INDICATION:Liver lesion, exclude metastatic disease. On liver [...] MD Report Verified Date/Time:12/05/2018 16:40:17 Reading Location: [address] [employer] Reading Room Procedure Note Interface, External Ris In - 12/05/2018 4:42 PM CDT FINAL REPORT PROCEDURE: BONE SCAN, WHOLE BODY CPT CODE: [id number] INDICATION: Liver lesion, exclude metastatic disease. On [...] Report Verified Date/Time: 12/05/2018 16:40:17 Reading Location: [address] [employer] Reading Room Performing Organization Address City/State/Zipcode Phone Number [facility] * CT chest without IV contrast (12/04/2018 9:18 PM CDT) Specimen Narrative Performed At FINAL REPORT [facility] CT scan of the chest. CLINICAL HISTORY: [...] MD Report Verified Date/Time:12/04/2018 23:03:08 Reading Location: [address] Consult Reading Room Procedure Note Interface, [...] Date/Time: 12/04/2018 23:03:08 Reading Location: [facility] [id number] Consult Reading Room Performing Organization Address City/[facility]/[place] [facility] Centercone Phone Number [facility] * Hepatitis B Panel (12/03/2018 12:10 PM CDT) Hep B Core Total Ab REACTIVE (A) Nonreactive [facility] Hep B S Ab 841.0 (H) <8.0 mIU/mL [facility] hepatitis B Surface Ag NON-REACTIVE Nonreactive [facility] Specimen Blood Performing Organization Address [facility]/[place] [facility] Centercone Phone Number [address] * Hepatitis C antibody (12/03/2018 12:10 PM CDT) Hepatitis C Ab NON-REACTIVE Nonreactive [facility] Specimen Blood Performing Organization Address [facility]/[place] [facility] Centercode Phone Number [address] * Hepatitis B core antibody, total (12/03/2018 12:10 PM CDT) Hep B Core Total Ab REACTIVE (A) Nonreactive [facility] Specimen Blood Performing Organization Address [facility] [facility]one Phone Number [address] * Iron, TIBC, % sat. (without ferritin) (12/03/2018 4:09 AM CDT) Iron 183.0 (H) 40.0 - 160.0 ug/dL [facility] TIBC 179 (L) 250 - 450 ug/dL [facility] Iron % Saturation 102 (H) 20 - 55 % [facility] Specimen Blood Performing Organization Address City/[facility]/[place] [facility] [facility]one Phone Number [address] * Folate, Serum (12/03/2018 4:09 AM CDT) Folate 11.8 >=7.0 ng/mL [facility] Specimen Blood Performing Organization Address [facility] [facility]one Phone Number [address] * Ferritin (12/03/2018 4:09 AM CDT) Ferritin 124 5 - 275 ng/mL [facility] Specimen Blood Performing Organization Address City/[facility]/[place] [facility] Centercode Phone Number [address] * Vitamin B12 (12/03/2018 4:09 AM CDT) Vitamin B12 588 213 - 816 pg/mL [facility] Specimen Blood Performing Organization Address City/[facility] [place] [facility]one Phone Number [address] * Reticulocyte count (12/02/2018 5:33 AM CDT) % Retic 5.0 (H) 0.5 - 1.7 % [facility] Specimen Blood Performing Organization Address [facility]/[place] [facility]ercone Phone Number [address] * Hepatitis B PCR, quantitative (12/01/2018 5:39 AM CDT) HBV PCR, Quantitative HBV DNA not detected HBV DNA not detected [facility] Specimen Blood Narrative Performed At This test uses a Real-Time Polymerase Chain Reaction (RT-PCR) methodology and [facility] was performed using [employer] AmpliPrep/KIP TaqMan HBV Test, v2.0 ([facility] [facility] [employer] Reportable range for this assay is 20 - 170,000,000 IU per mL (1.30 - 8.23 Log IU/mL). Performing Organization Address City/[facility]/[place] [facility]ercone Phone Number [address] * Hepatitis B core antibody, IgM (12/01/2018 5:39 AM CDT) Hep B C IgM NON-REACTIVE Nonreactive [facility] Specimen Blood Performing Organization Address [facility]/[place] [facility]ercone Phone Number [address] * Phosphorus (12/01/2018 5:39 AM CDT) Only the most recent of 3 results within the time period is included. Phosphorus 4.1 2.3 - 4.7 mg/dL [facility] Specimen Blood Performing Organization Address [facility] Phone Number [address] * Magnesium (12/01/2018 5:39 AM CDT) Only the most recent of 3 results within the time period is included. Magnesium 1.5 (L) 1.6 - 2.6 mg/dL [facility] Specimen Blood Performing Organization Address [facility] Phone Number [address] * MR abdomen without & with IV contrast (11/30/2018 12:07 AM CDT) Only the most recent of 3 results within the time period is included. Specimen Narrative Performed At FINAL REPORT [facility] TECHNIQUE: MRI of the abdomen WITHOUT and [...] MD Report Verified Date/Time:11/30/2018 07:35:42 Reading Location: [facility] Diagnostic Imaging Reading Room - [place] [address] Procedure Note Interface, External Ris In - [...] Report Verified Date/Time: 11/30/2018 07:35:42 Reading Location: [facility] Diagnostic Imaging Reading Room - [place] [address] Performing Organization Address City/[facility]/Zipcode Phone Number [facility] * PT/aPTT (11/29/2018 9:15 AM CDT) Protime 21.6 (H) 11.7 - 14.7 seconds [facility] INR 1.8 <=5.9 [facility] PTT 35.6 22.5 - 36.0 seconds [facility] Specimen Blood Narrative Performed At RECOMMENDED COUMADIN/WARFARIN INR THERAPY RANGES [facility] STANDARD DOSE: 2.0 - 3.0 Includes: PROPHYLAXIS for venous thrombosis, [facility] systemic embolization; TREATMENT for venous thrombosis and/or pulmonary embolus. HIGH RISK: Target INR is 2.5-3.5 for patients with mechanical heart valves. Performing Organization Address City/State/Zipcode Phone Number [facility] [address] [place] [address] MEDICAL CENTER * Fibrinogen (11/29/2018 9:15 AM CDT) Fibrinogen 118 (L) 225 - 434 mg/dl [facility] Specimen Blood Performing Organization Address City/[facility]/Zipcode Phone Number [phone] [place] [address] * D-dimer (11/29/2018 9:15 AM CDT) D-Dimer, Quant 13.03 (H) <0.50 MG/L FEU [facility] Specimen Blood Narrative Performed At Intended Use: The D-Dimer Assay can be used to aid in the diagnosis of Deep Vein [facility] Thrombosis (DVT) and Pulmonary Embolism Disease (PED). [facility] In patients with low pre-test probability, various studies concerning STA Liatest D-dimer test have reported that with a cutoff value of 0.50 MG/L FEU, the Negative Predictive Value (NPV) regarding the exclusion of thrombosis is within 95-100% range. Performing Organization Address City/State/[place] [facility] Centercode Phone Number [address] * Peripheral Blood Smear - Hold only (11/29/2018 5:07 AM CDT) Peripheral Smear Save SAVE [facility] Specimen Blood Performing Organization Address City/[facility]/[place] [facility] Centercode Phone Number [address] * Alpha fetoprotein (AFP), tumor marker (10/24/2018 11:57 AM BRICK SETTER) Only the most recent of 3 results within the time period is included. Alpha-Fetoprotein 2.7 <10.0 ng/mL [facility] Specimen Blood Performing Organization Address City/[facility]/[place] [facility] Centercode Phone Number [address] [address] [phone] [place] [address] * Bilirubin, direct (10/24/2018 11:57 AM BRICK SETTER) Only the most recent of 6 results within the time period is included. Bilirubin, Direct 2.4 (H) 0.1 - 0.5 mg/dL [facility] Specimen Blood Performing Organization Address City/[facility]/[place] [facility] Centercode Phone Number [phone] [facility] * Comprehensive metabolic panel (10/24/2018 11:57 AM BRICK SETTER) Only the most recent of 6 results within the time period is included. Protein, Total 7.1 6.0 - 8.3 gm/dL [facility] Albumin 3.0 (L) 3.5 - 5.0 g/dL [facility] Alkaline Phosphatase 154 (H) 40 - 150 U/L [facility] Total Bilirubin 8.7 (H) 0.2 - 1.2 mg/dL [facility] Sodium 140 136 - 145 meq/L [facility] Potassium 4.3 3.5 - 5.1 meq/L [facility] Chloride 108 (H) 98 - 107 meq/L [facility] CO2 26 22 - 29 meq/L [facility] BUN 9 7 - 21 mg/dL [facility] Creatinine 0.54 (L) 0.57 - 1.25 mg/dL [facility] Glucose 98 70 - 105 mg/dL [facility] Calcium 9.1 8.4 - 10.2 mg/dL [facility] AST 63 (H) 5 - 34 U/L [facility] ALT 31 6 - 55 U/L [facility] EGFR 119Comment: ESTIMATED GFR IS mL/min/1.73 sq m [facility] NOT ACCURATE CREATININE [facility] CLEARANCE IN PREDICTING GLOMERULAR FILTRATION RATE. ESTIMATED GFR IS NOT APPLICABLE FOR DIALYSIS PATIENTS. Specimen Blood Narrative Performed At Specimen moderately icteric [facility] Performing Organization Address City/State/Zipcode Phone Number [facility] [address] [place] [address] [facility] * CBC with platelet count + automated diff (10/03/2018 11:09 AM BRICK SETTER) Only the most recent of 2 results [...] Performing Organization Information: Site ID: [id number] Name: [facility] Address: [address] [place] [address] Director: Li Alvarenga Performing Organization Address City/State/Zipcode Phone Number [facility] [address] [place] [address] [facility] * POC-Creatinine (09/05/2018 12:48 PM BRICK SETTER) Only the most recent of 2 results within the time period is included. POC-Creatinine 0.4 (L)Comment: TESTED AT 0.6 - 1.3 mg/dL [facility] [address] [facility] [address] POC-EGFR 168 mL/min/1.73M2 [facility] Specimen Blood Performing Organization Address City/State/Zipcode Phone Number [facility] [address] [place] [address] [facility] * XR dxa bone density study (07/25/2018 12:59 PM BRICK SETTER) Specimen Narrative Performed At FINAL REPORT [facility] Bone mineral density study 07/25/2018 at 1259. CLINICAL INDICATION: Osteoporosis. COMPARISON: None available FINDINGS: Evaluation of the left and right femoral necks and lumbar spine was performed utilizing a [employer] Advance bone densitometer. The left femoral neck [...] MD Report Verified Date/Time:07/25/2018 15:48:51 Reading Location: [facility] Radiology Reading Room Procedure Note Interface, External Ris In - 07/25/2018 3:51 PM BRICK SETTER FINAL REPORT Bone mineral density study 07/25/2018 at 1259. CLINICAL INDICATION: Osteoporosis. COMPARISON: None available FINDINGS: Evaluation of the left and right femoral necks and lumbar spine was performed utilizing a [employer] Advance bone densitometer. The left femoral neck [...] Report Verified Date/Time: 07/25/2018 15:48:51 Reading Location: [facility] Radiology Reading Room Performing Organization Address City/State/Zipcode Phone Number [facility] * ED ECG Interpretation (05/23/2018 1:18 PM [...] CDT) Specimen Narrative Performed At FINAL REPORT [facility] Chest one view INDICATION: Shortness of breath COMPARISON: 11/05/2016 IMPRESSION: Previously seen right upper lobe nodularity is not apparent on this study. There are coarsened interstitial markings. No focal consolidation, edema, pleural effusion, or pneumothorax is seen. The cardiomediastinal silhouette is unremarkable. The bones appear intact. Signed: Eric Velazquez MD Report Verified Date/Time:05/23/2018 12:16:57 Reading Location: [facility] Radiology Reading Room Procedure Note Interface, External [...] Verified Date/Time: 05/23/2018 12:16:57 Reading Location: [facility] Reading Room Performing Organization Address City/[facility] Cent[facility] Phone Number GE RIS * Troponin I (05/23/2018 11:17 AM CDT) Troponin I <0.01 0.00 - 0.03 ng/mL [facility] Specimen Blood Narrative Performed At Troponin I (TnI) levels must be interpreted in the context of the presenting [facility] symptoms and the clinical findings. Elevated TnI levels indicate myocardial [facility] damage, but are not specific for ischemic heart disease. Elevated TnI levels are seen in patients with other cardiac conditions (including myocarditis and congestive heart failure), and slight TnI elevations occur in patients with other conditions, including sepsis, renal failure, acidosis, acute neurological disease, and persistent tachyarrhythmia. Performing Organization Address [facility] Cent[facility]one Phone Number [address] * Creatine Kinase (CK), Total and MB (05/23/2018 11:17 AM CDT) Total CK 115 29 - 200 U/L [facility] CK-MB 1.5 0.0 - 6.6 ng/mL [facility] MB Relative Index 1.3 % [facility] Specimen Blood Narrative Performed At CK-MB Reference Range: [facility] <6.7Normal [facility] 6.7-10.0Borderline >10.0 Abnormal Performing Organization Address [facility]one Phone Number [address] [facility] * ECG 12 lead (05/23/2018 10:42 AM CDT) Specimen Narrative Performed At Ventricular Rate 74 BPM GE MUSE Atrial Rate 74 BPM P-R Interval 154 ms QRS Duration 92 ms Q-T Interval 424 ms QTC Calculation(Bazett) 470 ms P Bigler 45 degrees R Bigler -20 degrees T Bigler 68 degrees Normal sinus rhythm Possible Left atrial enlargement Left ventricular hypertrophy Abnormal ECG Confirmed by MD Vj, Chiquita ([id number]) on 05/23/2018 10:07:49 PM Procedure Note Interface, External Ris In - 05/23/2018 10:07 PM CDT Ventricular Rate 74 BPM Atrial Rate 74 BPM P-R Interval 154 ms QRS Duration 92 ms Q-T Interval 424 ms QTC Calculation(Bazett) 470 ms P Bigler 45 degrees R Bigler -20 degrees T Bigler 68 degrees Normal sinus rhythm Possible Left atrial enlargement Left ventricular hypertrophy Abnormal ECG Confirmed by MD Vj, Chiquita ([id number]) on 05/23/2018 10:07:49 PM Performing Organization Address City/State/Zipcode Phone Number [place] MUSE after 12/31/2017 Insurance Payer Benefit Subscriber ID Type Phone Address Plan / Group BLUE CROSS/BLUE SHIELD BCBS OS xxxxxxxxxxxxxxx PPO [phone] [address] POS/PPO/[place] [address] O CARE IMPROVEMENT MEDICARE CARE xxxxxxxxx MGD CARE IMPROVEMEN T PLUS Advance Directives For more information, please contact: [facility] [address] [place] [address] Date Inactivated Comments Code Status Date Activated 12/11/2018 5:15 PM Full Code 11/29/2018 3:39 AM This code status was determined by: Patient 04/27/2016 4:08 PM Full Code 04/27/2016 6:18 AM This code status was determined by: Patient
--- NOTE | 2019-01-01 02:19 | NUR ---
Received patient from ED at this time. Patient is A&Ox3. Lungs clear. Bowel sounds active. Skin intact. Non-skid footwear in place. Bed alarm on. Patient reports pain, however no pain medications have been ordered at this time. No S&S of distress noted. Bed locked in lowest position, side rails upx2, call light in reach.
--- NOTE | 2019-01-01 02:21 | Diagnostic Imaging Report ---
Examination: Single AP view of the chest. COMPARISON: None. INDICATION: PICC line placement DISCUSSION: Lines/tubes: Right PICC line with tip overlying the SVC. Lungs: The lungs are well inflated and clear. No pneumonia or pulmonary edema. Pleura: No pleural effusion or pneumothorax. Heart and mediastinum: The heart and the mediastinum are unremarkable. Bones and soft tissues: No acute bony abnormalities. IMPRESSION: 1. Right PICC line with tip overlying the SVC. Signed by: Dr. Akbar Mayfield M.D. on 01/01/2019 2:18 AM
[2019-01-01] MEDS ORDERED: SODIUM CHLORIDE 0.9% 250ML 250 ML ONE (03:30)
--- NOTE | 2019-01-01 04:15 | NUR ---
Platelet pheresis transfusion began at this time. Patient tolerating well.
--- NOTE | 2019-01-01 04:52 | NUR ---
Platelet pheresis transfusion completed at this time. No reaction symptoms noted throughout transfusion. Patient tolerated well.
[2019-01-01] MEDS: SODIUM CHLORIDE 0.9% 1000ML 1,000 ML IV SCH ×3 (05:10→23:50)
--- NOTE | 2019-01-01 10:30 | NUR ---
per batch unit treater, consult for called in.
--- NOTE | 2019-01-01 10:35 | NUR ---
paged to clarify order for CT abdomen with and without contrast as patient has allergy to iodine.
[2019-01-01] MEDS: PROPRANOLOL HCL 10 MG TAB PO SCH (11:30)
--- NOTE | 2019-01-01 11:31 | NUR ---
spoke to with GI in regards to consult and states will come see patient.
--- NOTE | 2019-01-01 12:44 | NUR ---
Nutrition Screen Note RD Recommendation for Physician: - When medically feasible, ADAT to Regular Plan of Care: RD following, monitoring for tolerance and adequacy Nutrition reason for involvement: Nutrition Risk Trigger- Dx cirrhosis and ESLD Primary Diagnose(s): cirrhosis, fever, thrombocytopenia PMH: ELSD on transplant list, esophageal apheresis Ht: 62 in Wt: 191.13 lb BMI: 35 kg/m2 IBW: [address] Assessment: (01/01) 53 YOF admitted for cirrhosis, pt with hx of ESLD on transplant list. Pt recently discharged from facility on 12/25. Pt discussed during am rounds. Pt mostly Maltese speaking, SHINGLE SHEARING MACHINE OPERATOR provided translation. Pt reports eating very well up until 5 days ago when she started experiencing N/V and abdominal pain. Per am rounds "she couldn't keep anything done". Pt with round and tender abdomen, + ascites. Pt denies wt loss- possible fluid shifts related to ascites and reports chronic loose stools due to lactulose. Chart reviewed. Labs and meds reviewed. Noted GI consulted. Pt with no questions or concerns at time of visit. Will monitor and continue to follow. Current Diet: NPO Malnutrition Evaluation (01/01/19) The patient does not meet criteria for a specified degree of malnutrition at this time. Will re-evaluate at follow-up as appropriate. Diet Education Needs Assessment: Diet education not indicated. Nutrition Care Level: Low Signed: Katie Mcdaniel RD, LD, [facility]
--- NOTE | 2019-01-01 12:59 | NUR ---
paged for the second time to clarify CT abdomen orders. awaiting return call.
[2019-01-01] MEDS: HYDROMORPHONE 2MG/ML 2 MG/ML ML IV PRN ×2 (13:15→21:01)
--- NOTE | 2019-01-01 14:25 | NUR ---
REC'D PT FROM MED SURG 1 VIA WHEELCHAIR, PT ON RA, NO S/S OF DISTRESS. PT TO REMAIN NPO FOR CT-SCAN WITH CONTRAST THAT IS PENDING DUE TO ALLERGIC TO IODINE. BED IN LOWEST POSITION, SIDE RAILS UP X2, AND CALL LOPEZ WITHIN REACH.
--- NOTE | 2019-01-01 15:20 | NUR ---
patient transferred to room 214, report given to receiving nurse Rehana AGUILAR.
[2019-01-01] MEDS: LACTULOSE SYRUP 20 GM/30 ML UDC PO SCH ×2 (15:26→20:50)
--- NOTE | 2019-01-01 16:17 | History and Physical ---
CHIEF COMPLAINT: She is a 53-year-old female, patient of mine, presented to the emergency room with complaints of abdominal pain, back pain, and WEAKNESS HISTORY OF PRESENT ILLNESS: Ms. Nicolás Linton is a 53-year-old female patient, who is suffering from end-stage liver disease, she is on a liver transplant list , The patient was recently discharged with hepatic encephalopathy. The patient came yesterday to emergency room with complaints of right upper abdominal pain and right side back pain, headache, The patient has severe pain in the abdomen and back. PAST MEDICAL HISTORY: The patient has history of end-stage renal disease, liver cirrhosis, and portal hypertension. Recently, the patient was diagnosed with hepatic mass or hepatoma. ALLERGIES: THE PATIENT IS ALLERGIC TO IODINE. SOCIAL HISTORY: The patient denies smoking. Denies any alcohol. FAMILY HISTORY: Hypertension and diabetes mellitus. PHYSICAL EXAMINATION: GENERAL: Middle aged female patient lying in the bed, anxious in mild distress with the pain. VITAL SIGNS: Temperature 97, pulse rate 88 and blood pressure 110/60. HEENT: Normocephalic and atraumatic. Marked icterus present. LUNGS: Bilateral equal air entry. No rales. No rhonchi. HEART: S1, S2 regular. No murmur. No gallop. ABDOMEN: Soft. Bowel sounds present. The patient has ascites AND Hepatosplenomegaly present. EXTREMITIES: Edema present. NEUROLOGIC: No focal neurological deficit. ADMITTING INPATIENT DIAGNOSES: Acute abdominal pain in the patient with severe portal hypertension and advanced liver cirrhosis with hepatoma. SBP- spontaneous bacterial peritonitis , portal hypertension. The patient was admitted with above diagnoses. The patient was treated with IV antibiotics, cefepime MD RADHA Eugene/HELENE /[id number] FARZANA
[2019-01-01] MEDS: RIFAXIMIN 550 MG TABLET PO SCH (17:13)
--- NOTE | 2019-01-01 18:40 | NUR ---
PAGED DR. BURDEN TO CLARIFY CT-SCAN ORDER AND ABOUT PT BEING ALLERGIC TO IODINE.
--- NOTE | 2019-01-01 18:46 | NUR ---
DR. BURDEN CALLED BACK AND CLARIFIED IF HE WANTED CT-SCAN WITH OR WITHOUT CONTRAST. DR. BURDEN WANTS WITH CONTRAST. LET HIM BE AWARE THAT PT IS ALLERGIC TO IODINE. DR. BURDEN SAID TO NOTIFY GI DOCTOR, DR. MESSER. Addendum: 01/01/19 at 1849 by TAQUERIA GOTTI RN DR. GRANT
--- NOTE | 2019-01-01 19:30 | NUR ---
notified dr. alas about ct-scan with contrast and pt being allergic to contrast. dr. alas ordered ct without contrast.
--- NOTE | 2019-01-01 19:59 | NUR ---
PATIENT OFF THE UNIT PER WHEEL CHAIR TO RADIOLOGY FOR CT OF THE ABDOMEN/PELVIS. SHE LEFT THE UNIT IN STABLE CONDITION WITHOUT RESPIRATORY DISTRESS.
--- NOTE | 2019-01-01 20:15 | NUR ---
PATIENT BACK ON THE UNIT WITHOUT DISTRESS.
--- NOTE | 2019-01-01 20:26 | Diagnostic Imaging Report ---
EXAM: CT ABDOMEN/PELVIS WO DATE: 01/01/2019 7:36 PM INDICATION: Cirrhosis of the liver, spontaneous bacterial peritonitis, hepatoma COMPARISON: None TECHNIQUE: The abdomen and pelvis were scanned using a multidetector helical scanner. Coronal and sagittal reformations were obtained. CT low dose techniques were utilized, as applicable. IV Contrast: 0 ml Isovue 300/370 FINDINGS: Lack of IV contrast decreases sensitivity in evaluating abdominal and pelvic organs. LOWER THORAX: No consolidations LIVER/BILIARY: Cirrhotic liver morphology with mild volume perihepatic ascites. The abdominal collateral vessels are seen. GALLBLADDER: Unremarkable SPLEEN: Splenomegaly with a splenic ascites. PANCREAS: Unremarkable ADRENALS: No nodules KIDNEYS: Nonobstructing bilateral renal calculi again seen. GI TRACT: Moderate segment wall thickening of the ascending colon with adjacent stranding. VESSELS: Unremarkable PERITONEUM/RETROPERITONEUM: Small volume ascites, slightly increased compared to recent prior on 12/20/2018 LYMPH NODES: No lymphadenopathy REPRODUCTIVE ORGANS/BLADDER: Unremarkable SOFT TISSUES: Unremarkable BONES: No suspicious bone lesions. IMPRESSION: Interval development of wall thickening of the ascending colon suggestive of acute colitis with no evidence of perforation. Cirrhosis with sequela of portal hypertension including splenomegaly, small ascites (minimally increased), and upper abdominal collateral vessels. Signed by: Geovani Cruz MD on 01/01/2019 8:22 PM
[2019-01-01] MEDS: METOCLOPRAMIDE HCL 10 MG/2ML VIAL IV PRN (21:01)
--- NOTE | 2019-01-01 21:01 | NUR ---
PATIENT C/O PAIN TO THE ABDOMEN AND NAUSEA, MEDICATED WITH DILAUDID AND REGLAN ORDERED. WARM BLANKET PROVIDED FOR COMFORT, CALL LIGHT WITHIN EASY REACH, INSTRUCTED TO CALL FOR ASSISTANCE NEEDED.
--- NOTE | 2019-01-01 22:14 | Consultation ---
DATE OF CONSULTATION: 01/01/2019 REASON FOR CONSULTATION: Fever. HISTORY OF PRESENT ILLNESS: Thank you so much for allowing me to see this patient. This patient is a 53-year-old female. She was here back on October 06, 2018. The patient at that time was diagnosed with liver disease. The patient has history of diabetes mellitus, primary biliary liver cirrhosis, hypertension, ascites, and thrombocytopenia. She has history of cholecystectomy and hysterectomy. She was here back on October 06, 2018 with fever and chills. At that time, she was started on antibiotic. She was seen by Infectious Disease. She was seen by Neuro. Paracentesis was ordered. The patient then was discharged to skilled care facility. She came back again on November 24. The patient had a similar presentation. The patient has history of liver cirrhosis, hepatoma, thrombocytopenia. She is coming back on December 20 with encephalopathy, portal hypertension, and now she is coming back again with fever and chills. The patient is just not feeling well in general. There is no specific complaints. Fever, chills, and some nausea. Her cultures from before have been negative. The patient currently has a lab, white count of 8.1, hemoglobin of 10, hematocrit 29, and platelets of 17. Her sodium 135, potassium 4.3, creatinine 0.8. Liver enzyme; bilirubin was 19, AST 67. The patient had a PICC line inserted yesterday. Her chest x-ray shows no abnormality. PAST MEDICAL HISTORY: Liver cirrhosis as mentioned above. She found to have hepatic tumor. There was concern to be malignancy. She had spontaneous bacterial peritonitis before, multiple paracentesis. PAST SURGICAL HISTORY: Paracentesis. ALLERGIES: NKA. SOCIAL HISTORY: There is no smoking, drug abuse, or alcohol abuse. FAMILY HISTORY: Hypertension. REVIEW OF SYSTEMS: CONSTITUTIONAL: Now fever and chills as mentioned above. Nausea as mentioned above. There is no headache, visual changes, or hearing changes. GI: Nausea. No vomiting. CARDIAC: There is no arrhythmia. NEURO: No seizure activity. SKIN: There is no other rash. LABORATORY DATA: Her laboratory data reviewed from all previous admissions, progress note, and consultations reviewed. PHYSICAL EXAMINATION: GENERAL: She is currently alert, oriented, does not seem to be in acute distress. VITAL SIGNS: Stable, currently afebrile. HEENT: Pale and icteric. NECK: Supple. CHEST: Clear. HEART: S1 and S2. No S3, S4, or murmur. ABDOMEN: Soft. IMPRESSION AND PLAN: Fever and chills. The patient with liver disease, concerned about spontaneous bacterial peritonitis, concerned about urinary tract infection . Agree with blood cultures, urine cultures, ultrasound of the abdomen, paracenteses if need to. Agree with cefepime for the time being. We will follow. MD CAROLINA Hensley/HELENE /[id number]
[2019-01-02] VITALS (8 sets, daily range): BP systolic 95–145; BP diastolic 51–63
--- NOTE | 2019-01-02 | NUR ---
PATIENT CONDITION STABLE WITHOUT ACUTE DISTRESS, SHE DENIES ABDOMINAL PAIN. CALL LIGHT WITHIN EASY REACH, SHE'S INSTRUCTED TO CALL FOR ASSISTANCE NEEDED.
[2019-01-02] MEDS: CEFEPIME 1GM/NS 0.9% 50 ML 50 ML IV SCH ×2 (01:16→13:10)
--- NOTE | 2019-01-02 01:35 | Consultation ---
DATE OF CONSULTATION: 01/01/2019 Gastroenterology Consultation REFERRING PHYSICIAN: Dr. Martel. REASON FOR CONSULTATION: Nausea, vomiting, abdominal pain, and cirrhosis. HISTORY OF PRESENT ILLNESS: Ms. Nicolás Greene is a very pleasant 53-year-old woman, who we know well from prior admissions. She has history of decompensated cirrhosis with portal hypertension. She also has history of gastroparesis. She has history of hepatic encephalopathy. She came in with epigastric pain, nausea, and vomiting. She denies any diarrhea. She says that she has many stools secondary to the lactulose. Stools are orange. There is no overt bleeding. She has urinary tract infection based on UA. MEDICATIONS: Reviewed, please see [facility] medication reconciliation form. ALLERGIES: REVIEWED, PLEASE SEE [facility] MEDICATION RECONCILIATION FORM. SOCIAL HISTORY: No alcohol, tobacco, or illicit substances. She has good family support, currently listed for liver transplant. Family positive for diabetes, hypertension. REVIEW OF SYSTEMS: Positive for that mentioned in HPI. Otherwise, 12 systems reviewed and unremarkable. PHYSICAL EXAMINATION: GENERAL: She is deeply jaundiced. She is alert and oriented, in no acute distress. HEENT: She has marked scleral icterus. NECK: Supple. LUNGS: Clear. CARDIOVASCULAR: S1, S2. ABDOMEN: Soft. She is tender in the upper abdomen, a little bit less in the suprapubic region. No rebound, guarding, or mass. EXTREMITIES: No clubbing or cyanosis. PSYCH: Calm and cooperative. NEUROLOGIC: Alert and oriented. No asterixis. HEME/ONC: Few minor bruises on skin. She is deeply jaundiced. Electronic health records reviewed for laboratory and radiologic studies as well as history. ASSESSMENT: 1. Decompensated cirrhosis. 2. Hepatoma. 3. Thrombocytopenia, severe immune thrombocytopenic purpura. 4. Gastroparesis, likely flare at this time. 5. Urinary tract infection. PLAN: At the current time, we will continue her lactulose and Xifaxan. We would titrate the lactulose 2-3 soft stools per day. Refer to Hematology regarding her severe ITP. She will continue on antibiotics. Agree with following up her urine culture. Given that the UA was positive for nitrites, I suspect this is the source of her current decompensation. I am going to go ahead and get an ultrasound. We will check her fluid level and portal patency. She is significantly worse today than I have seen her before as far as her coagulation profile and bilirubin. Her renal function is also still within normal limits, a little higher for her, which concerns me. If she worsens rather than improves, we will need to consider getting her transferred to the [facility] for care from our transplant team. Thank you very much for asking me to see Ms. Nicolás Greene. Any questions or concerns, please do not hesitate to contact me. We will follow with you. Hortensia Walker MD RLS/MODL /[id number]
--- NOTE | 2019-01-02 02:10 | Consultation ---
DATE OF CONSULTATION: 01/01/2019 REASON FOR CONSULTATION: Evaluation and management of the patient with thrombocytopenia secondary to end-stage liver disease. HISTORY OF PRESENTING ILLNESS: Ms. Nicolás Greene is a very pleasant 53-year-old female, who is very well known to me as she is my clinic patient, has complicated past medical history including known history of liver cirrhosis, severe thrombocytopenia with baseline count around 20,000, hepatosplenomegaly, gastroparesis, who is presently in consideration for liver transplantation. She has been following at [facility] with Dr. Ramos. Recently, she was hospitalized due to severe thrombocytopenia, requiring steroid with IVIG without much response. She was transferred to [facility] and underwent treatment with End-Plate with good response. She was scheduled to have treatment with End-Plate in my clinic, however, now presented to the emergency department and admitted due to abdominal pain and not feeling well. She underwent workup revealing markedly elevated bilirubin at 19.2 and elevated INR as well as severe thrombocytopenia with platelet count of 17,000. Hematology-Oncology has been consulted to assist with the management. PAST MEDICAL HISTORY: 1. Liver cirrhosis on liver transplant list. 2. 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 3. Recurrent ascites, requiring paracentesis. 4. Gastroparesis. 5. Hepatosplenomegaly. PAST SURGICAL HISTORY: 1. Cardiac catheterization. 2. Multiple paracentesis. 3. Multiple EGD and colonoscopy. FAMILY HISTORY: Positive for diabetes and hypertension. SOCIAL HISTORY: Denies history of alcohol use, illicit drug use, or history of smoking. ALLERGIES: IODINE. CURRENT MEDICATIONS: Reviewed as per electronic medical record. REVIEW OF SYSTEMS: Fourteen-point review of systems negative except as mentioned per history of present illness as well as fatigue, tiredness, not feeling well. PHYSICAL EXAMINATION: VITAL SIGNS: Reviewed as per electronic medical record. HEENT: PERRLA. ABDOMEN: Soft. Positive bowel sounds. EXTREMITIES: Trace edema. NEUROLOGIC: The patient is alert and awake. LABORATORY DATA: Reviewed and per electronic medical record. ASSESSMENT AND PLAN: Ms. Nicolás Greene is a very pleasant 53-year-old female, who is my clinic patient has advanced liver cirrhosis causing hepatosplenomegaly and severe thrombocytopenia. 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 She was supposed to receive treatment at my clinic, however, admitted due to abdominal pain. Of note, she was also recently diagnosed with hepatocellular cancer, which is solitary lesion of 1.8 cm. She is scheduled to have outpatient PET/CT scan. At this point, recommendation would be to mostly provide supportive care. Her platelet count is on the low side, however, I will avoid transfusion until it is absolutely necessary and try to keep platelet count above 15,000. She also have anemia, which is stable, so monitor closely. She has severe hyperbilirubinemia suggestive of worsening of liver function. I will discuss case with Dr. Ramos at [facility]. Case has been discussed at length with . . Thank you for the consult. I will continue to be available. Please call with questions. Luis Angel Rodarte MD IJ/MODL /[id number]
--- NOTE | 2019-01-02 04:34 | NUR ---
PATIENT IS SOUNDLY ASLEEP, NO RESPIRATORY DISTRESS OBSERVED, CALL LIGHT WITHIN EASY REACH.
[2019-01-02] MEDS: HYDROMORPHONE 2MG/ML 2 MG/ML ML IV PRN ×3 (05:48→20:57)
--- NOTE | 2019-01-02 05:49 | NUR ---
PATIENT C/O PAIN TO THE ABDOMEN AND BACK, SHE MOANS WHEN MOVING IN BED. MEDICATED WITH DILAUDID ORDERED, BED ALARM ON, CALL LIGHT WITHIN EASY REACH.
[2019-01-02 06:06] LABS: BASOPHILS % 0.4 % (0.0-1.0); EOSINOPHILS % 0.4 % (0.0-6.0); HEMOGLOBIN 7.5 g/dL (12.0-16.0); LYMPHOCYTES # (AUTO) 0.6 (1.0-3.2); LYMPHOCYTES % 12.7 % (18.0-39.1); MEAN CORPUSCULAR HEMOGLOBIN 36.1 pg (28-32); MEAN CORPUSCULAR HGB CONC 33.2 g/dL (31-35); MEAN CORPUSCULAR VOLUME 108.7 fL (81-99); MONOCYTES # (AUTO) 0.7 (0.2-0.8); MONOCYTES % 14.1 % (4.4-11.3); NEUTROPHILS # (AUTO) 3.5 (2.1-6.9); NEUTROPHILS % 71.6 % (38.7-80.0); RED BLOOD COUNT 2.08 x10e6/uL (3.6-5.1); RED CELL DISTRIBUTION WIDTH 17.8 % (11.7-14.4)
[2019-01-02 06:12] LABS: ALANINE AMINOTRANSFERASE 34 IU/L (0-55); ALBUMIN 2.2 g/dL (3.5-5.0); ALBUMIN/GLOBULIN RATIO 0.6 (0.8-2.0); ALKALINE PHOSPHATASE 85 IU/L (40-150); AMYLASE 48 U/L (25-125); ANION GAP 8.1 mmol/L (8-16); BLOOD UREA NITROGEN 20 mg/dL (7-26); BUN/CREATININE RATIO 34 (6-25); CALCIUM 8.3 mg/dL (8.4-10.2); CARBON DIOXIDE 21 mmol/L (22-29); CHLORIDE 106 mmol/L (98-107); CREATININE, SERUM 0.58 mg/dL (0.57-1.11); EST GLOMERULAR FILTRATION RATE > 60 ML/MIN (60-); GLUCOSE 101 mg/dL (74-118); LIPASE 21 U/L (8-78); POTASSIUM 4.1 mmol/L (3.5-5.1); SODIUM 131 mmol/L (136-145)
[2019-01-02 06:13] LABS: HEMATOCRIT 22.6 % (34.2-44.1); PLATELET COUNT 22 x10e3/uL (140-360)
--- NOTE | 2019-01-02 07:30 | NUR ---
REC'D PT AAOX3, NO S/S OF DISTRESS, FLUIDS RUNNING. PT ON RA. PT C/O PAIN 6/10 ON ABDOMEN. BED IN LOWEST POSITION, SIDE RAILS UP X2, AND CALL LOPEZ WITHIN REACH.
[2019-01-02 08:50] LABS: BASOPHILS % 0.2 % (0.0-1.0); EOSINOPHILS % 0.4 % (0.0-6.0); HEMATOCRIT 24.3 % (34.2-44.1); HEMOGLOBIN 7.7 g/dL (12.0-16.0); LYMPHOCYTES # (AUTO) 0.7 (1.0-3.2); LYMPHOCYTES % 13.1 % (18.0-39.1); MEAN CORPUSCULAR HEMOGLOBIN 35.8 pg (28-32); MEAN CORPUSCULAR HGB CONC 31.7 g/dL (31-35); MONOCYTES # (AUTO) 0.8 (0.2-0.8); MONOCYTES % 14.8 % (4.4-11.3); NEUTROPHILS # (AUTO) 3.6 (2.1-6.9); NEUTROPHILS % 70.5 % (38.7-80.0); RED BLOOD COUNT 2.15 x10e6/uL (3.6-5.1); RED CELL DISTRIBUTION WIDTH 17.8 % (11.7-14.4)
[2019-01-02] MEDS ORDERED: PROPRANOLOL HCL 10 MG TAB PO SCH (09:00)
[2019-01-02] MEDS ORDERED: FUROSEMIDE 20 MG TAB PO SCH (09:00)
[2019-01-02 09:06] LABS: PLATELET COUNT 21 x10e3/uL (140-360)
[2019-01-02] MEDS ORDERED: SODIUM CHLORIDE 0.9% 1000ML 1,000 ML ONE ×2 (09:07→17:27)
[2019-01-02] MEDS: PANTOPRAZOLE SOD 40 MG TABEC PO SCH (09:14)
[2019-01-02] MEDS: FUROSEMIDE 40 MG TAB PO SCH (09:14)
[2019-01-02] MEDS: PROPRANOLOL HCL 10 MG TAB PO SCH (09:14)
[2019-01-02] MEDS: LACTULOSE SYRUP 20 GM/30 ML UDC PO SCH ×3 (09:14→20:56)
[2019-01-02] MEDS: RIFAXIMIN 550 MG TABLET PO SCH ×2 (09:16→17:26)
--- NOTE | 2019-01-02 09:28 | NUR ---
PAGED DR. GERARD REGARDING PT CRITICAL PLATELET VALUE OF 21. CALLED OFFICE AND GAVE DR. GERARD NUMBER. AB INITIO ETL DEVELOPER GAVE DR. GERARD CELL NUMBER. CALLED DR. GERARD THREE TIMES AND CALL COULD NOT BE COMPLETED AND WAS NOT ABLE TO LEAVE VOICEMAIL.
[2019-01-02] MEDS: SPIRONOLACTONE 25 MG TAB PO SCH (09:33)
--- NOTE | 2019-01-02 10:58 | NUR ---
CALLED DR. GERARD CONCERNING CRITICAL LAB FOR PLATELETS OF 21. DR. GERARD SAID TO CONTINUE MONITORING PT AND HER LABS.
--- NOTE | 2019-01-02 12:19 | Diagnostic Imaging Report ---
EXAM: US ABDOMEN LIMITED DATE: 01/02/2019 12:00 AM INDICATION: ^elevated lft, evaluate for any significant ascites ^[id number] ^[id number] COMPARISON: CT abdomen/pelvis, 01/01/2019 FINDINGS: Grayscale and color flow Doppler ultrasound of the right upper abdomen was performed. Liver: 10.3 cm span, no hepatomegaly. Nodular hepatic contour and heterogeneous parenchyma compatible with cirrhosis as noted on previous CT. No intrahepatic mass or dilated bile ducts. Main portal vein 1.2 cm, nondilated, normal hepatopetal flow. Biliary: Surgical absence of the gallbladder. Common bile duct 0.3 cm, normal. Pancreas: Visualized portions show no mass or duct dilatation. Right kidney: 9.4 x 5.3 x 5.3 cm. Normal cortical echogenicity. No hydronephrosis or contour deforming mass. Vessels: Visualized portions of aorta and IVC unremarkable. Ascites: There is trace free fluid seen in the right upper abdomen. IMPRESSION: 1. Trace ascites is seen in the right upper abdomen. 2. Cirrhotic hepatic morphology as noted on previous CT. No dilatation of the main portal vein. Signed by: Dr. Luis Reardon M.D. on 01/02/2019 12:15 PM
--- NOTE | 2019-01-02 15:15 | NUR ---
Visit made by the Spiritual Care Department Pastoral Visitor, Sara Zaman. PV provided pastoral presence, prayer, hospitality, and supportive listening. Pastoral Visitor informed pt/family of the scope of [employer] and availability. ANTHONY ROYAL [employer] Spiritual Care Department O: [phone] Pager: [phone] ([phone] number calling from)
[2019-01-02] MEDS: SODIUM CHLORIDE 0.9% 1000ML 1,000 ML IV SCH (17:00)
[2019-01-02] MEDS: HOME MEDICATION--PATIENTS OWN PO SCH (17:26)
--- NOTE | 2019-01-02 18:05 | NUR ---
PT IS IN BED RECEIVING FLUIDS. AT BEDSIDE. BED IN LOWEST POSITION, SIDE RAILS UP X2, AND CALL LOPEZ WITHIN REACH.
[2019-01-02] MEDS: SODIUM FERRIC GLUCONATE COMPLX 125 MG in SODIUM CHLORIDE 0.9% 100 ML 100 ML IV SCH (20:56)
[2019-01-02] MEDS: TRAZODONE HCL 50 MG TAB PO SCH (20:56)
--- NOTE | 2019-01-02 20:57 | NUR ---
PATIENT REFUSED SCHEDULE LACTULOSE, SHE STATED "I HAVE BEEN HAVING LOOSE STOOLS ALL DAY." PATIENT C/O PAIN TO THE ABDOMEN WITH PAIN SCORE #7, MEDICATED WITH DILAUDID ORDERED. SHE WENT TO THE RESTROOM PRIOR TO ADMINISTERING THE MEDICATION. CALL LIGHT WITHIN EASY REACH, HER DAUGHTER IS AT THE BEDSIDE.
--- NOTE | 2019-01-02 23:45 | NUR ---
PATIENT IS ASLEEP, SHE'S EASY TO AROUSE. NO RESPIRATORY DISTRESS OBSERVED, SHE DENIES ABDOMINAL PAIN. CALL LIGHT WITHIN EASY REACH, BED ALARM ON.
[2019-01-03] VITALS (9 sets, daily range): BP systolic 89–111; BP diastolic 49–53
[2019-01-03] MEDS: CEFEPIME 1GM/NS 0.9% 50 ML 50 ML IV SCH ×2 (01:06→12:33)
--- NOTE | 2019-01-03 03:25 | NUR ---
PATIENT IS BACK FROM THE TOILET, SHE C/O MILD ABDOMINAL PAIN BUT REFUSED PAIN MEDICATION WHEN OFFER. CALL LIGHT WITHIN EASY REACH, BED ALARM ON.
[2019-01-03] MEDS: SODIUM CHLORIDE 0.9% 1000ML 1,000 ML IV SCH ×3 (03:35→17:00)
[2019-01-03 05:46] LABS: BASOPHILS % 0.3 % (0.0-1.0); EOSINOPHILS % 0.3 % (0.0-6.0); HEMATOCRIT 26.6 % (34.2-44.1); HEMOGLOBIN 8.7 g/dL (12.0-16.0); LYMPHOCYTES # (AUTO) 0.7 (1.0-3.2); LYMPHOCYTES % 21.3 % (18.0-39.1); MEAN CORPUSCULAR HEMOGLOBIN 36.6 pg (28-32); MEAN CORPUSCULAR HGB CONC 32.7 g/dL (31-35); MEAN CORPUSCULAR VOLUME 111.8 fL (81-99); MONOCYTES # (AUTO) 0.5 (0.2-0.8); NEUTROPHILS # (AUTO) 2.1 (2.1-6.9); NEUTROPHILS % 62.6 % (38.7-80.0); RED BLOOD COUNT 2.38 x10e6/uL (3.6-5.1); RED CELL DISTRIBUTION WIDTH 17.7 % (11.7-14.4)
[2019-01-03] MEDS: METOCLOPRAMIDE HCL 10 MG/2ML VIAL IV PRN (05:48)
[2019-01-03] MEDS: HYDROMORPHONE 2MG/ML 2 MG/ML ML IV PRN (05:48)
[2019-01-03 05:49] LABS: PLATELET COUNT 22 x10e3/uL (140-360)
--- NOTE | 2019-01-03 05:49 | NUR ---
PATIENT C/O PAIN TO THE ABDOMEN AND NAUSEA, MEDICATED WITH DILAUDID AND REGLAN ORDERED. CALL LIGHT IN EASY REACH, SHE'S INSTRUCTED TO CALL FOR ASSISTANCE NEEDED.
[2019-01-03 05:59] LABS: INR 1.72; PROTHROMBIN TIME 20.8 seconds (11.9-14.5)
[2019-01-03 08:02] LABS: ALANINE AMINOTRANSFERASE 36 IU/L (0-55); ALBUMIN 2.4 g/dL (3.5-5.0); ALBUMIN/GLOBULIN RATIO 0.5 (0.8-2.0); ALKALINE PHOSPHATASE 91 IU/L (40-150); BLOOD UREA NITROGEN 16 mg/dL (7-26); BUN/CREATININE RATIO 26 (6-25); CALCIUM 8.7 mg/dL (8.4-10.2); CARBON DIOXIDE 19 mmol/L (22-29); CHLORIDE 109 mmol/L (98-107); CREATININE, SERUM 0.62 mg/dL (0.57-1.11); EST GLOMERULAR FILTRATION RATE > 60 ML/MIN (60-); GLUCOSE 69 mg/dL (74-118); SODIUM 135 mmol/L (136-145)
[2019-01-03] MEDS: HOME MEDICATION--PATIENTS OWN PO SCH ×2 (09:00→17:00)
[2019-01-03] MEDS: SODIUM FERRIC GLUCONATE COMPLX 125 MG in SODIUM CHLORIDE 0.9% 100 ML 100 ML IV SCH (09:36)
[2019-01-03] MEDS: RIFAXIMIN 550 MG TABLET PO SCH ×2 (09:37→17:00)
[2019-01-03] MEDS: PROPRANOLOL HCL 10 MG TAB PO SCH (09:37)
[2019-01-03] MEDS: LACTULOSE SYRUP 20 GM/30 ML UDC PO SCH ×3 (09:37→21:35)
[2019-01-03] MEDS: FUROSEMIDE 40 MG TAB PO SCH (09:37)
[2019-01-03] MEDS: PANTOPRAZOLE SOD 40 MG TABEC PO SCH (09:37)
[2019-01-03] MEDS: SPIRONOLACTONE 25 MG TAB PO SCH (17:00)
[2019-01-03] MEDS: METRONIDAZOLE 500MG/NS 100ML 100 ML IV SCH ×2 (17:28→23:57)
[2019-01-03] MEDS: TRAZODONE HCL 50 MG TAB PO SCH (21:35)
[2019-01-04] VITALS (8 sets, daily range): BP systolic 85–110; BP diastolic 45–52
[2019-01-04] MEDS: HYDROMORPHONE 2MG/ML 2 MG/ML ML IV PRN ×3 (00:08→18:55)
[2019-01-04] MEDS: CEFEPIME 1GM/NS 0.9% 50 ML 50 ML IV SCH ×2 (00:45→12:45)
[2019-01-04] MEDS: SODIUM CHLORIDE 0.9% 1000ML 1,000 ML IV SCH (01:09)
[2019-01-04] MEDS: METRONIDAZOLE 500MG/NS 100ML 100 ML IV SCH ×3 (05:11→17:39)
[2019-01-04 06:32] LABS: BASOPHILS % 0.4 % (0.0-1.0); EOSINOPHILS % 0.8 % (0.0-6.0); HEMOGLOBIN 7.3 g/dL (12.0-16.0); LYMPHOCYTES # (AUTO) 0.6 (1.0-3.2); LYMPHOCYTES % 23.6 % (18.0-39.1); MEAN CORPUSCULAR HEMOGLOBIN 36.5 pg (28-32); MEAN CORPUSCULAR HGB CONC 33.5 g/dL (31-35); MONOCYTES # (AUTO) 0.4 (0.2-0.8); MONOCYTES % 15.9 % (4.4-11.3); NEUTROPHILS # (AUTO) 1.4 (2.1-6.9); NEUTROPHILS % 58.1 % (38.7-80.0); RED CELL DISTRIBUTION WIDTH 17.7 % (11.7-14.4)
[2019-01-04 06:36] LABS: HEMATOCRIT 21.8 % (34.2-44.1)
[2019-01-04 06:37] LABS: PLATELET COUNT 21 x10e3/uL (140-360)
--- NOTE | 2019-01-04 06:41 | NUR ---
Dr. Ivana Martel paged for critical lab platelet results of 21. Awaiting call back.
--- NOTE | 2019-01-04 08:25 | NUR ---
Notified Dr. Rodarte of hemoglobin level 7.3 and platelet count. New orders received.
[2019-01-04] MEDS: SPIRONOLACTONE 25 MG TAB PO SCH (09:00)
[2019-01-04] MEDS: HOME MEDICATION--PATIENTS OWN PO SCH ×2 (09:00→17:00)
[2019-01-04] MEDS: LACTULOSE SYRUP 20 GM/30 ML UDC PO SCH ×3 (09:21→23:00)
[2019-01-04] MEDS: RIFAXIMIN 550 MG TABLET PO SCH ×2 (09:21→17:39)
[2019-01-04] MEDS: SODIUM FERRIC GLUCONATE COMPLX 125 MG in SODIUM CHLORIDE 0.9% 100 ML 100 ML IV SCH (09:21)
[2019-01-04] MEDS: FUROSEMIDE 40 MG TAB PO SCH (09:21)
[2019-01-04] MEDS: PANTOPRAZOLE SOD 40 MG TABEC PO SCH (09:21)
[2019-01-04] MEDS: PROPRANOLOL HCL 10 MG TAB PO SCH (09:22)
[2019-01-04] MEDS ORDERED: SODIUM CHLORIDE 0.9% 250ML 250 ML IV NR (09:30)
[2019-01-04] MEDS: ONDANSETRON HCL 4 MG ORAL DISINTEGRATING TAB PO PRN ×2 (10:45→18:41)
--- NOTE | 2019-01-04 11:25 | NUR ---
Upon assessment discovered that patient's right upper extremity is swollen in comparison to the left upper extremity. Right arm also has PICC line in place. Paged Dr. Martel to let him know. Awaiting call back.
--- NOTE | 2019-01-04 11:41 | NUR ---
Lab called and said patient has antibodies and it will be a minimum of 4 hours until unit of blood is ready
--- NOTE | 2019-01-04 16:38 | NUR ---
BP 85/45. Paged Dr. Margaret Martel again, he never returned page from earlier.
--- NOTE | 2019-01-04 16:38 | NUR ---
Unit of blood is still not ready
--- NOTE | 2019-01-04 16:45 | NUR ---
Spoke to Dr. Martel, notified him about RUE swelling and BP 85/45. New orders received
--- NOTE | 2019-01-04 18:00 | NUR ---
Blood blank said unit of blood is not ready yet
[2019-01-04] MEDS ORDERED: SODIUM CHLORIDE 0.9% 250ML 250 ML ONE (19:33)
--- NOTE | 2019-01-04 19:53 | NUR ---
Bedside verification of blood products conducted. Blood transfusion of 1 unit of blood initiated at this time. Will continue to monitor.
[2019-01-04] MEDS: TRAZODONE HCL 50 MG TAB PO SCH (23:00)
--- NOTE | 2019-01-04 23:00 | NUR ---
Blood transfusion completed. No adverse reaction noted.
[2019-01-05] VITALS (7 sets, daily range): BP systolic 94–111; BP diastolic 49–56
[2019-01-05] MEDS: METRONIDAZOLE 500MG/NS 100ML 100 ML IV SCH ×4 (00:30→18:02)
[2019-01-05] MEDS: CEFEPIME 1GM/NS 0.9% 50 ML 50 ML IV SCH ×2 (00:45→12:02)
[2019-01-05] MEDS: HYDROMORPHONE 2MG/ML 2 MG/ML ML IV PRN ×2 (00:47→18:45)
--- NOTE | 2019-01-05 07:08 | NUR ---
Walking rounds done. Shift report given to oncoming nurse regarding patient's status.
[2019-01-05] MEDS: PANTOPRAZOLE SOD 40 MG TABEC PO SCH (08:29)
[2019-01-05] MEDS: RIFAXIMIN 550 MG TABLET PO SCH ×2 (08:29→17:59)
[2019-01-05] MEDS: LACTULOSE SYRUP 20 GM/30 ML UDC PO SCH ×3 (08:29→21:00)
[2019-01-05] MEDS: PROPRANOLOL HCL 10 MG TAB PO SCH (08:29)
[2019-01-05] MEDS: HOME MEDICATION--PATIENTS OWN PO SCH ×2 (08:30→17:00)
[2019-01-05] MEDS: SODIUM FERRIC GLUCONATE COMPLX 125 MG in SODIUM CHLORIDE 0.9% 100 ML 100 ML IV SCH (09:00)
--- NOTE | 2019-01-05 10:03 | Consultation ---
DATE OF CONSULTATION: 01/01/2019 ADDENDUM: REASON FOR CONSULTATION: Fever. Thank you so much for asking me to see this patient. This patient, who is a very pleasant 53-year-old Latin-Togolese female DICTATION ENDS HERE MD CAROLINA Hensley/HELENE /[id number]
--- NOTE | 2019-01-05 12:00 | NUR ---
per hold next dose of lactulose due to pt c/o diarrhea.
[2019-01-05] MEDS: ONDANSETRON HCL 4 MG ORAL DISINTEGRATING TAB PO PRN (12:01)
--- NOTE | 2019-01-05 14:50 | NUR ---
per , collect stool for c-diff if diarrhea continues.
--- NOTE | 2019-01-05 16:14 | NUR ---
CM SPOKE TO PATIENT AND PATIENT DAUGHTER/ POA AT BEDSIDE REGARDING DISCHARGE PLAN. PATIENT AND PATIENT DAUGHTER INFORMED OF ALF ACUTE CARE ORDER. ALF ACUTE CARE SERVICES EXPLAIN IN DETAIL. PATIENT POA AND PATIENT VERBALLY AGREED TO BE TRANSFERRED TO ALF ACUTE CARE PLACEMENT. LTAC CHOICES GIVEN. PATIENT AND PATIENT DAUGHTER CHOSE [facility] SINCE IT IS CLOSER TO FAMILY. CHOICE LETTER DELEGATED TO BE SIGNED BY DAUGHTER/ POA. PATIENT DAUGHTER SIGNED CHOICE LETTER AND CHOICE LETTER PLACED IN CHART. [place] [facility] NOTIFIED. CLINICAL PENDING TO BE PICKED UP BY LIAISON DARIN CUEVAS. MOT INITIATED AND GIVEN TO WELFARE AIDE EZRA. PENDING AUTH AND BED ASSIGNMENT FOR TRANSFER. ALF ACUTE CARE FACILITY: [facility] Address: [address] [facility] [address], [place] [address] PENDING AUTH.
[2019-01-05] MEDS: SPIRONOLACTONE 25 MG TAB PO SCH (17:00)
--- NOTE | 2019-01-05 19:30 | NUR ---
Patient received lying in bed. Family at bedside. AAO x 3. Patient had no complaints of pain. No signs of respiratory distress. Fall precautions maintained. SCD in place. Patient instructed to call for assistance when needed. Call light within reach.
[2019-01-05] MEDS: TRAZODONE HCL 50 MG TAB PO SCH (21:14)
--- NOTE | 2019-01-05 21:30 | NUR ---
Patient refused administration of Lactulose. Patient stated she wanted to be able to sleep tonight unlike the previous night where she had 6 bowel movements.
[2019-01-06] VITALS (8 sets, daily range): BP systolic 100–114; BP diastolic 52–96
[2019-01-06] MEDS: METRONIDAZOLE 500MG/NS 100ML 100 ML IV SCH ×5 (00:13→23:45)
[2019-01-06] MEDS: HYDROMORPHONE 2MG/ML 2 MG/ML ML IV PRN ×2 (00:20→20:12)
[2019-01-06] MEDS: CEFEPIME 1GM/NS 0.9% 50 ML 50 ML IV SCH ×2 (00:45→12:33)
[2019-01-06 05:15] LABS: BASOPHILS % 0.3 % (0.0-1.0); EOSINOPHILS % 0.9 % (0.0-6.0); HEMATOCRIT 26.5 % (34.2-44.1); HEMOGLOBIN 8.5 g/dL (12.0-16.0); LYMPHOCYTES # (AUTO) 0.5 (1.0-3.2); LYMPHOCYTES % 14.7 % (18.0-39.1); MEAN CORPUSCULAR HEMOGLOBIN 35.3 pg (28-32); MEAN CORPUSCULAR HGB CONC 32.1 g/dL (31-35); MONOCYTES # (AUTO) 0.5 (0.2-0.8); MONOCYTES % 15.3 % (4.4-11.3); NEUTROPHILS # (AUTO) 2.3 (2.1-6.9); NEUTROPHILS % 67.3 % (38.7-80.0); RED BLOOD COUNT 2.41 x10e6/uL (3.6-5.1); RED CELL DISTRIBUTION WIDTH 20.9 % (11.7-14.4)
[2019-01-06 05:19] LABS: PLATELET COUNT 21 x10e3/uL (140-360)
[2019-01-06 05:44] LABS: ALANINE AMINOTRANSFERASE 28 IU/L (0-55); ALBUMIN 2.1 g/dL (3.5-5.0); ALBUMIN/GLOBULIN RATIO 0.5 (0.8-2.0); ALKALINE PHOSPHATASE 102 IU/L (40-150); ANION GAP 8.2 mmol/L (8-16); BLOOD UREA NITROGEN 7 mg/dL (7-26); BUN/CREATININE RATIO 12 (6-25); CALCIUM 8.3 mg/dL (8.4-10.2); CARBON DIOXIDE 23 mmol/L (22-29); CHLORIDE 107 mmol/L (98-107); CREATININE, SERUM 0.59 mg/dL (0.57-1.11); EST GLOMERULAR FILTRATION RATE > 60 ML/MIN (60-); GLUCOSE 107 mg/dL (74-118); POTASSIUM 4.2 mmol/L (3.5-5.1); SODIUM 134 mmol/L (136-145)
--- NOTE | 2019-01-06 06:28 | NUR ---
Dr. Gibran Martel (covering for Dr. Ivana Martel) paged regarding critical lab results for platelets---21. Awaiting call back.
--- NOTE | 2019-01-06 06:31 | NUR ---
Patient resting comfortably. Walking rounds done . Shift report given to oncoming nurse.
[2019-01-06] MEDS: HOME MEDICATION--PATIENTS OWN PO SCH ×2 (08:49→16:53)
[2019-01-06] MEDS: SPIRONOLACTONE 25 MG TAB PO SCH (08:49)
[2019-01-06] MEDS: PANTOPRAZOLE SOD 40 MG TABEC PO SCH (08:50)
[2019-01-06] MEDS: PROPRANOLOL HCL 10 MG TAB PO SCH (08:50)
[2019-01-06] MEDS: LACTULOSE SYRUP 20 GM/30 ML UDC PO SCH ×2 (08:50→14:08)
[2019-01-06] MEDS: RIFAXIMIN 550 MG TABLET PO SCH ×2 (08:50→16:53)
[2019-01-06] MEDS: SODIUM FERRIC GLUCONATE COMPLX 125 MG in SODIUM CHLORIDE 0.9% 100 ML 100 ML IV SCH (09:54)
[2019-01-06] MEDS ORDERED: SPIRONOLACTONE 25 MG TAB PO SCH (17:00)
[2019-01-06] MEDS: ONDANSETRON HCL 4 MG ORAL DISINTEGRATING TAB PO PRN (17:06)
[2019-01-06] MEDS: FUROSEMIDE 40 MG TAB PO SCH (17:38)
--- NOTE | 2019-01-06 18:00 | Progress Note ---
DATE: 01/06/2019 SUBJECTIVE: Ms. Monzon is doing better. There are no new complaints. She is lying in bed comfortably. REVIEW OF SYSTEMS: HEENT: Negative. PULMONARY: Negative. CARDIAC: Negative. : Negative. LABORATORY DATA: Reviewed. Her white count was 3, hemoglobin 8.5. PHYSICAL EXAMINATION: GENERAL: She is currently alert, oriented, does not seem in acute distress. VITAL SIGNS: Stable, afebrile. HEENT: She is not icteric. NECK: Supple. CHEST: Clear. HEART: S1, S2. No S3, S4, murmur. ABDOMEN: Soft. Bowel sounds present. No tenderness. EXTREMITIES: No edema. SKIN: No rash. IMPRESSION: 1. Colitis. Clinically, seems to be better. 2. Liver cirrhosis. 3. Pancytopenia, secondary to liver cirrhosis. 4. Anemia. 5. Hepatoma, thrombocytopenia, and gastroparesis. Hematology/Oncology is following. GI is following. Blood culture is negative. Urine culture is negative. The patient is on cefepime and metronidazole for colitis, continue for another 14 days. Can change to oral Cipro with Flagyl once clinically better. We will follow with you. MD CAROLINA Hensley/HELENE /[id number]
--- NOTE | 2019-01-06 19:00 | NUR ---
Received patient from day nurse, patient is alert and oriented, safety and fall precautions maintained at this time, bed in lowest position and locked, needed items beside call garces close to patient, plan of care discussed with patient, patient is currently stable will continue to monitor.
[2019-01-06] MEDS: TRAZODONE HCL 50 MG TAB PO SCH (20:11)
[2019-01-06] MEDS: METOCLOPRAMIDE HCL 10 MG/2ML VIAL IV PRN (20:15)
[2019-01-07] VITALS (10 sets, daily range): BP systolic 92–106; BP diastolic 48–55
[2019-01-07] MEDS: CEFEPIME 1GM/NS 0.9% 50 ML 50 ML IV SCH ×2 (00:45→12:24)
[2019-01-07] MEDS: HYDROMORPHONE 2MG/ML 2 MG/ML ML IV PRN (01:53)
[2019-01-07] MEDS: METRONIDAZOLE 500MG/NS 100ML 100 ML IV SCH ×3 (05:32→17:47)
[2019-01-07 05:54] LABS: BASOPHILS % 0.3 % (0.0-1.0); EOSINOPHILS % 0.9 % (0.0-6.0); HEMATOCRIT 25.9 % (34.2-44.1); HEMOGLOBIN 8.6 g/dL (12.0-16.0); LYMPHOCYTES # (AUTO) 0.4 (1.0-3.2); LYMPHOCYTES % 11.5 % (18.0-39.1); MEAN CORPUSCULAR HGB CONC 33.2 g/dL (31-35); MEAN CORPUSCULAR VOLUME 108.4 fL (81-99); MONOCYTES # (AUTO) 0.5 (0.2-0.8); MONOCYTES % 13.6 % (4.4-11.3); NEUTROPHILS # (AUTO) 2.4 (2.1-6.9); NEUTROPHILS % 72.5 % (38.7-80.0); RED BLOOD COUNT 2.39 x10e6/uL (3.6-5.1); RED CELL DISTRIBUTION WIDTH 20.6 % (11.7-14.4)
[2019-01-07 06:18] LABS: PLATELET COUNT 21 x10e3/uL (140-360)
[2019-01-07 06:23] LABS: ALANINE AMINOTRANSFERASE 23 IU/L (0-55); ALKALINE PHOSPHATASE 104 IU/L (40-150); ANION GAP 8.8 mmol/L (8-16); CALCIUM 8.2 mg/dL (8.4-10.2); CARBON DIOXIDE 25 mmol/L (22-29); CHLORIDE 106 mmol/L (98-107); CREATININE, SERUM 0.63 mg/dL (0.57-1.11); EST GLOMERULAR FILTRATION RATE > 60 ML/MIN (60-); GLUCOSE 116 mg/dL (74-118); POTASSIUM 3.8 mmol/L (3.5-5.1); SODIUM 136 mmol/L (136-145)
[2019-01-07 06:40] LABS: ALBUMIN 2.1 g/dL (3.5-5.0); ALBUMIN/GLOBULIN RATIO 0.5 (0.8-2.0); BLOOD UREA NITROGEN 6 mg/dL (7-26); BUN/CREATININE RATIO 10 (6-25)
--- NOTE | 2019-01-07 06:47 | NUR ---
patient endorsed to next shift for continuity of care.
--- NOTE | 2019-01-07 07:00 | NUR ---
RECEIVED BEDSIDE SHIFT REPORT FROM LADLE REPAIRMAN RN. PT AAOX3. BED AT LOWEST POSITION AND LOCKED. CALL LOPEZ WITH IN REACH. PT DENIES NEEDS AT THIS TIME.
[2019-01-07] MEDS: HOME MEDICATION--PATIENTS OWN PO SCH ×3 (09:00→16:20)
[2019-01-07] MEDS: SPIRONOLACTONE 25 MG TAB PO SCH (09:00)
[2019-01-07] MEDS: FUROSEMIDE 40 MG TAB PO SCH (09:00)
[2019-01-07] MEDS: PANTOPRAZOLE SOD 40 MG TABEC PO SCH (09:24)
[2019-01-07] MEDS: RIFAXIMIN 550 MG TABLET PO SCH ×2 (09:24→16:14)
[2019-01-07] MEDS: SODIUM FERRIC GLUCONATE COMPLX 125 MG in SODIUM CHLORIDE 0.9% 100 ML 100 ML IV SCH (09:27)
[2019-01-07] MEDS: PROPRANOLOL HCL 10 MG TAB PO SCH (09:33)
[2019-01-07 13:49] LABS: ANISOCYTOSIS MODERATE; LYMPHOCYTES % (MANUAL) 17 % (19-48); METAMYELOCYTES % (MANUAL) 1 % (0-0); MONOCYTES % (MANUAL) 8 % (3.4-9.0); NEUTROPHILS % (MANUAL) 74 % (40-74)
[2019-01-07 13:50] LABS: HYPOCHROMASIA MODERATE; PLATELET ESTIMATE MARKEDLY DECREASED; PLATELET MORPHOLOGY COMMENT FEW LARGE; RBC MORPHOLOGY COMMENT ABNORMAL
[2019-01-07 14:19] LABS: OCCULT BLOOD STOOL NEGATIVE (NEGATIVE); WBC,FECAL (FECAL LACTOFERRIN) POSITIVE (NEGATIVE)
[2019-01-07] MEDS: METOCLOPRAMIDE HCL 10 MG/2ML VIAL IV PRN (16:14)
[2019-01-07] MEDS: ONDANSETRON HCL 4 MG ORAL DISINTEGRATING TAB PO PRN (16:14)
[2019-01-07] MEDS: CHOLESTYRAMINE 4 GM PACKET PO SCH (17:47)
--- NOTE | 2019-01-07 19:00 | NUR ---
BEDSIDE SHIFT REPORT GIVEN TO ON AWAKE COUNSELOR RN. PT DENIED FURTHER NEEDS.
[2019-01-07] MEDS: TRAZODONE HCL 50 MG TAB PO SCH (21:09)
[2019-01-08] VITALS (8 sets, daily range): BP systolic 95–107; BP diastolic 50–53
[2019-01-08] MEDS: METRONIDAZOLE 500MG/NS 100ML 100 ML IV SCH ×2 (00:30→05:43)
[2019-01-08] MEDS: CEFEPIME 1GM/NS 0.9% 50 ML 50 ML IV SCH ×2 (00:45→12:25)
[2019-01-08] MEDS: HYDROMORPHONE 2MG/ML 2 MG/ML ML IV PRN (05:43)
[2019-01-08 06:19] LABS: BASOPHILS % 0.4 % (0.0-1.0); EOSINOPHILS % 0.4 % (0.0-6.0); HEMATOCRIT 25.1 % (34.2-44.1); HEMOGLOBIN 8.4 g/dL (12.0-16.0); LYMPHOCYTES # (AUTO) 0.4 (1.0-3.2); LYMPHOCYTES % 14.9 % (18.0-39.1); MEAN CORPUSCULAR HEMOGLOBIN 36.4 pg (28-32); MEAN CORPUSCULAR HGB CONC 33.5 g/dL (31-35); MEAN CORPUSCULAR VOLUME 108.7 fL (81-99); MONOCYTES # (AUTO) 0.4 (0.2-0.8); MONOCYTES % 13.1 % (4.4-11.3); NEUTROPHILS # (AUTO) 1.9 (2.1-6.9); NEUTROPHILS % 70.5 % (38.7-80.0); RED BLOOD COUNT 2.31 x10e6/uL (3.6-5.1); RED CELL DISTRIBUTION WIDTH 20.4 % (11.7-14.4)
[2019-01-08 06:23] LABS: PLATELET COUNT 16 x10e3/uL (140-360)
[2019-01-08 06:25] LABS: ALANINE AMINOTRANSFERASE 26 IU/L (0-55); ALBUMIN/GLOBULIN RATIO 0.6 (0.8-2.0); ALKALINE PHOSPHATASE 86 IU/L (40-150); ANION GAP 8.9 mmol/L (8-16); BILIRUBIN,DIRECT 3.2 mg/dL (0.0-0.5); BLOOD UREA NITROGEN 5 mg/dL (7-26); BUN/CREATININE RATIO 9 (6-25); CALCIUM 7.8 mg/dL (8.4-10.2); CARBON DIOXIDE 24 mmol/L (22-29); CHLORIDE 104 mmol/L (98-107); CREATININE, SERUM 0.58 mg/dL (0.57-1.11); EST GLOMERULAR FILTRATION RATE > 60 ML/MIN (60-); GLUCOSE 78 mg/dL (74-118); POTASSIUM 3.9 mmol/L (3.5-5.1); SODIUM 133 mmol/L (136-145)
--- NOTE | 2019-01-08 06:30 | NUR ---
Received patient from day nurse, patient is stable, safety and fall precautions maintained as per hospital protocol. patient is currently stable, will continue to monitor. Addendum: 01/08/19 at 0633 by Omi Rutledge RN 01/07/19 @ 1900: Received patient from day nurse, patient is stable, safety and fall precautions maintained as per hospital protocol. patient is currently stable, will continue to monitor.
--- NOTE | 2019-01-08 06:38 | NUR ---
Dr. Rodrate office called and informed about platelet of 16, spoke to Luann, waiting for call back and will endorse to day nurse for follow up.
--- NOTE | 2019-01-08 06:45 | NUR ---
Dr. Rodarte called and ordered for platelets to be administered, patient made aware.
[2019-01-08] MEDS: SPIRONOLACTONE 25 MG TAB PO SCH (08:08)
[2019-01-08] MEDS: PROPRANOLOL HCL 10 MG TAB PO SCH (09:00)
[2019-01-08] MEDS ORDERED: FUROSEMIDE 40 MG TAB PO SCH (09:00)
[2019-01-08] MEDS: HOME MEDICATION--PATIENTS OWN PO SCH ×2 (09:00→17:00)
[2019-01-08] MEDS: RIFAXIMIN 550 MG TABLET PO SCH ×2 (09:44→17:00)
[2019-01-08] MEDS: PANTOPRAZOLE SOD 40 MG TABEC PO SCH (09:45)
[2019-01-08] MEDS: SODIUM FERRIC GLUCONATE COMPLX 125 MG in SODIUM CHLORIDE 0.9% 100 ML 100 ML IV SCH (09:46)
[2019-01-08] MEDS: CHOLESTYRAMINE 4 GM PACKET PO SCH ×2 (11:09→18:03)
--- NOTE | 2019-01-08 14:02 | NUR ---
PICC line dressing changed at this time. Patient tolerated well.
--- NOTE | 2019-01-08 16:08 | NUR ---
Nutrition Screen Note RD Recommendation for Physician: - When medically feasible, ADAT to Regular - If unable to advance diet within 48 hrs, consult Nutrition for recommendations Plan of Care: RD following, monitoring for tolerance and adequacy Nutrition reason for involvement: Follow up Primary Diagnose(s): cirrhosis, fever, thrombocytopenia PMH: ELSD on transplant list, esophageal apheresis Ht: 62 in Wt: 191.13 lb BMI: 35 kg/m2 IBW: [address] Assessment: (01/08) Pt seen for follow up. Pt discussed during am rounds, pt pending transfer to [facility]. Pt sleeping at time of visit, daughter at bedside reports ongoing "burning" sensation in stomach- not heartburn. Pt currently on Protonix, daughter reports "it's not helping." Pt on full liquids x day 5, consuming 25-75% of meals per chart. Per daughter, pt does not like or tolerate supplements and will not drink them. Noted current wt of 219#, questionable wt gain of 28# in 1 week. Labs and meds reviewed. Will monitor and continue to follow. (01/01) 53 YOF admitted for cirrhosis, pt with hx of ESLD on transplant list. Pt recently discharged from facility on 12/25. Pt discussed during am rounds. Pt mostly Omani speaking, CYCLE SPECIALIST provided translation. Pt reports eating very well up until 5 days ago when she started experiencing N/V and abdominal pain. Per am rounds "she couldn't keep anything done". Pt with round and tender abdomen, + ascites. Pt denies wt loss- possible fluid shifts related to ascites and reports chronic loose stools due to lactulose. Chart reviewed. Labs and meds reviewed. Noted GI consulted. Pt with no questions or concerns at time of visit. Will monitor and continue to follow. Current Diet: Full liquids Malnutrition Evaluation (01/01/19) The patient does not meet criteria for a specified degree of malnutrition at this time. Will re-evaluate at follow-up as appropriate. Diet Education Needs Assessment: Diet education not indicated. Nutrition Care Level: Low Signed: Katie Mcdaniel RD, LD, [facility]
--- NOTE | 2019-01-08 19:00 | NUR ---
Received patient lying in bed in no acute distress, patient denies pain at this time. safety and fall precautions maintained as per hospital protocol: bed in lowest position and locked, needed items beside bed, patient informed to use call light to call for help. patient with low platelet level, waiting for transfusion, as per day nurse, platelet was not ready and so was not administered, blood bank was called and they stated blood product has being ready, day nurse was made aware and she stated will transfuse it before she leaves her shift.
[2019-01-08] MEDS ORDERED: SODIUM CHLORIDE 0.9% 250ML 250 ML ONE (19:21)
--- NOTE | 2019-01-08 19:33 | NUR ---
Platelet transfusion initiated at this time. Infusion by gravity. Vital signs 97.9 temp, 68 pulse, 18 respirations, 100/54 blood pressure. Will continue to monitor.
--- NOTE | 2019-01-08 19:48 | NUR ---
After 15 minutes of platelet transfusion, patient exhibits no signs of reaction. Vital signs stable.
--- NOTE | 2019-01-08 20:09 | NUR ---
Platelet transfusion completed at this time. Patient exhibiting no transfusion reaction. Patient is resting. Temp is 98.2, pulse is 68, respirations 19, blood pressure is 107/52. Call garces within reach.
[2019-01-08] MEDS: TRAZODONE HCL 50 MG TAB PO SCH (21:00)
--- NOTE | 2019-01-08 21:12 | NUR ---
Patient rounded, patient was seen to be scratching the entire skin, patient was red on observation and complained of moderate increasing pain in the stomach, patient was seen to be more lethargic compared to initial assessment, vitals checked , bp was 98/60, hr was 68, and temp. was 98.9 f and 97 % on room air. Dr. Rodarte was made aware, enquired about the platelets and was made aware that it was transfused, he ordered for Decadron iv and Benadryl iv, it was administered, patient did not receive her trazodone because she was moderately lethargic. Will continue to monitor.
[2019-01-08] MEDS ORDERED: DEXAMETHASONE SOD PHOS INJ 4 MG/ML VIAL IV ONE (21:15)
[2019-01-08] MEDS ORDERED: DIPHENHYDRAMINE HCL INJ 50 MG/ML VIAL IV ONE (21:15)
[2019-01-09] MEDS: CEFEPIME 1GM/NS 0.9% 50 ML 50 ML IV SCH (00:50)
[2019-01-09 00:52] VITALS: BP 118/56
--- NOTE | 2019-01-09 01:36 | NUR ---
Patient complained of severe headache and stomach ache, Dr. Martel was called and ordered to activate ordered hydromorphone.
[2019-01-09] MEDS ORDERED: HYDROMORPHONE 2MG/ML 2 MG/ML ML IV PRN (01:45)
--- NOTE | 2019-01-09 03:00 | NUR ---
1mg of hydromorphone Administered for pain.
[2019-01-09 05:57] VITALS: BP 102/65
[2019-01-09 06:40] LABS: HEMATOCRIT 26.3 % (34.2-44.1); HEMOGLOBIN 8.8 g/dL (12.0-16.0); LYMPHOCYTES # (AUTO) 0.2 (1.0-3.2); LYMPHOCYTES % 8.9 % (18.0-39.1); MEAN CORPUSCULAR HEMOGLOBIN 36.7 pg (28-32); MEAN CORPUSCULAR HGB CONC 33.5 g/dL (31-35); MEAN CORPUSCULAR VOLUME 109.6 fL (81-99); MONOCYTES # (AUTO) 0.1 (0.2-0.8); MONOCYTES % 2.5 % (4.4-11.3); NEUTROPHILS # (AUTO) 2.1 (2.1-6.9); NEUTROPHILS % 87.8 % (38.7-80.0); RED CELL DISTRIBUTION WIDTH 19.8 % (11.7-14.4)
--- NOTE | 2019-01-09 06:47 | NUR ---
Paged Dr. Rodarte at this time. Platelet count is 18 this morning. Awaiting return call.
[2019-01-09 06:48] LABS: PLATELET COUNT 18 x10e3/uL (140-360)
[2019-01-09 06:53] LABS: ALANINE AMINOTRANSFERASE 26 IU/L (0-55); ALBUMIN 2.2 g/dL (3.5-5.0); ALBUMIN/GLOBULIN RATIO 0.6 (0.8-2.0); ALKALINE PHOSPHATASE 86 IU/L (40-150); ANION GAP 8.5 mmol/L (8-16); BLOOD UREA NITROGEN 7 mg/dL (7-26); BUN/CREATININE RATIO 11 (6-25); CALCIUM 8.2 mg/dL (8.4-10.2); CARBON DIOXIDE 25 mmol/L (22-29); CHLORIDE 102 mmol/L (98-107); CREATININE, SERUM 0.62 mg/dL (0.57-1.11); EST GLOMERULAR FILTRATION RATE > 60 ML/MIN (60-); GLUCOSE 128 mg/dL (74-118); POTASSIUM 4.5 mmol/L (3.5-5.1); SODIUM 131 mmol/L (136-145)
--- NOTE | 2019-01-09 07:12 | NUR ---
Walking rounds completed at this time. Patient is A&Ox3. Patient states she has no pain. No signs of distress noted. Call garces is within reach.
--- NOTE | 2019-01-09 07:17 | NUR ---
patient endorsed to next shift for continuity of care.
[2019-01-09] MEDS: SPIRONOLACTONE 25 MG TAB PO SCH (09:00)
[2019-01-09] MEDS ORDERED: FUROSEMIDE 20 MG TAB PO SCH (09:00)
[2019-01-09] MEDS: HOME MEDICATION--PATIENTS OWN PO SCH (09:00)
[2019-01-09] MEDS: PROPRANOLOL HCL 10 MG TAB PO SCH (09:00)
[2019-01-09 09:26] VITALS: BP 101/50
[2019-01-09] MEDS: PANTOPRAZOLE SOD 40 MG TABEC PO SCH (09:26)
[2019-01-09] MEDS: SODIUM FERRIC GLUCONATE COMPLX 125 MG in SODIUM CHLORIDE 0.9% 100 ML 100 ML IV SCH (09:26)
[2019-01-09] MEDS: RIFAXIMIN 550 MG TABLET PO SCH (09:26)
--- NOTE | 2019-01-09 10:29 | NUR ---
Spoke with Dr. Martel and Prem with Dr. Mercado's office. Expressed that patient is wanting to go home. Al gave orders to stop Cefepime. Dr. Martel says patient can go home pending Dr. Rodarte's decision. Delonte states patient should follow up with Dr. Rodarte. Will page Dr. Rodarte now.
[2019-01-09] MEDS: CHOLESTYRAMINE 4 GM PACKET PO SCH (10:41)
--- NOTE | 2019-01-09 10:56 | NUR ---
Called Dr. Rodarte at this time due to no return call earlier. Left message on cell phone his office provided to return call.
--- NOTE | 2019-01-09 12:10 | NUR ---
Spoke with Dr. Rodarte at this time. Instructed me to let the patient know that she must come to his office after discharge. He stated we can discharge patient now.
--- NOTE | 2019-01-09 16:14 | Discharge Summary ---
This is a 53-year-old female patient, who presented with a complaint of abdominal pain, back pain and weakness. ADMITTING IMPRESSION AND DIAGNOSES: Acute abdominal pain with suspected spontaneous bacterial peritonitis, portal hypertension, advanced liver cirrhosis, hepatoma, recent hepatic encephalopathy, and colitis. The patient also has severe thrombocytopenia. The patient has a CT scan of the abdomen and pelvis done and the patient was found to have diffuse colitis. HOSPITAL COURSE: The patient was admitted with above diagnoses and the patient was treated with IV cefepime, Flagyl and rifaximin. The patient has severe anemia and thrombocytopenia, so the patient was given platelet transfusion and blood transfusions. ID, GI and Hematology consultation was done. The patient was also given IV iron by Dr. Rodarte. The patient has a prolonged course with diarrhea, weakness, abdominal pain, poor appetite. The patient was getting Lasix and Aldactone, but that was required to be on hold because of the hypotension. The patient's platelet count remains low at 18,000. The patient's CD4 was negative. Stool lactoferrin was positive. The patient's blood culture was negative and urine culture was also negative. DISCHARGE DIAGNOSES: Sepsis, colitis in a patient with advanced liver cirrhosis and end-stage liver disease requiring transplant. The patient was advised for LTAC referral, but the patient wants to go back home and go back to follow up with her liver transplant team. The patient will be discharged home and I recommend discontinue IV antibiotics, but her discharge antibiotic will be referred to ID, Dr. Mercado. The patient will need followup for the anemia and thrombocytopenia with Dr. Rodarte. MD RADHA Eugene/MODL /[id number]
[2019-01-10] MEDS ORDERED: FUROSEMIDE 20 MG TAB PO SCH (09:00)
== END 2019-01-09 13:10 | disposition home or self-care (01) | DRG 871 ==
LOC: ER 21:13 → ERHOLD 01-01 01:21 → MED/SURG 01-01 02:35 → MED/SURG2 01-01 15:21
PROVIDERS: ADMIT Internal Medicine; ATTEND Internal Medicine
PROC: 02HV33Z Insertion of Infusion Device into Superior Vena Cava, Percutaneous Approach (ICD-10-PCS; principal; 2019-01-01)
PROC: 30243R1 Transfusion of Nonautologous Platelets into Central Vein, Percutaneous Approach (ICD-10-PCS; 2019-01-01)
PROC: 30243N1 Transfusion of Nonautologous Red Blood Cells into Central Vein, Percutaneous Approach (ICD-10-PCS; 2019-01-01)
DX: A41.9 Sepsis, unspecified organism (principal); K65.2 Spontaneous bacterial peritonitis; C22.0 Liver cell carcinoma; N39.0 Urinary tract infection, site not specified; K76.6 Portal hypertension; D61.818 Other pancytopenia; D69.3 Immune thrombocytopenic purpura; R18.8 Other ascites; K31.84 Gastroparesis; D69.59 Other secondary thrombocytopenia; K52.9 Noninfective gastroenteritis and colitis, unspecified; E11.43 Type 2 diabetes mellitus with diabetic autonomic (poly)neuropathy; K72.90 Hepatic failure, unspecified without coma; Z76.82 Awaiting organ transplant status; Z90.49 Acquired absence of other specified parts of digestive tract; K74.3 Primary biliary cirrhosis; K21.9 Gastro-esophageal reflux disease without esophagitis; I95.9 Hypotension, unspecified
CPT/HCPCS: 36415; 36569; 71045; 74176; 76705; 80053; 81001; 82140; 82150; 82248; 82270; 82550; 82553; 83605; 83630; 83690; 84484; 85025; 85610; 85730; 86850; 86870; 86880; 86900; 86905; 86920; 86922; 86945; 87040; 87086; 87493; 93971; 96361; 96367; 99001; 99284; J0692; J1100; J1200; J2405; J2765; J2916; J7030; J7040; J7050; P9016; P9034

== ENCOUNTER 2019-01-10 13:43 | Inpatient (IN) | payer OTHER, BC ==
[~2019-01-10] VITALS: Ht 157.5 cm; Wt 101.2 kg
--- OUTSIDE RECORDS SUMMARY | 2019-01-10 13:46 | XMS REPORT | Clinical Summary ---
Author Author [facility] Organization [facility] Address Unknown Phone Unavailable Care Team Providers Care Electrical Mechanic Name Role Phone Asked, No Pcp PCP [...] Health Maintenance Due Date Last Done Comments BREAST CANCER SCREENING 2017 COLON CANCER SCREENING 2017 SHINGLES VACCINES (#1) 2017 INFLUENZA VACCINE 03/22/2019 Results Not on fileafter 01/09/2018 Insurance Type Payer Benefit Subscriber ID Effective Phone Address Plan / Dates Group Transplant OPT[employer] TRANSPLANT [employer] OPTUM TXP xxxxxxxxx 2016- CARE SANAZ 2008 Present HMO/PPO [facility] xxxxxxxxx 2016- THCARE Present CHOICE/CHO ICE + HMO UHC MEDICARE UNITED xxxxxxxxx 2016- HEALTHCARE Present MEDICARE Advance Directives Patient has advance care planning documents on file. For more information, luciano hallman contact: Edis Marc [address] [place] [address]
--- OUTSIDE RECORDS SUMMARY | 2019-01-10 13:47 | XMS REPORT | Clinical Summary ---
Author Author [facility] Address Unknown Phone Unavailable Care Team Providers Care Camera Machinist Name Role Phone Aren Martel Estefani PCP [...] We will also need clearance from her [employer] oncologist that she does not have any [...] abdominal pain. She met with a local repossession agent who diagnosed her with an "ovarian tumor" and has referred her to a gynecology oncologist. I have no seen documentation from her [employer] oncologist but she states that the "ovarian [...] Encounters Care Team Description Date Type Specialty Cheli Potts RN Dyspnes; Change in status 01/10/2019 Telephone Transplant Hepatology Marleny Pino RN MELD 01/09/2019 Telephone Transplant Hepatology Monika Vanegas Appointment (LVM. Calling to schedule meld labs due now.) 01/01/2019 Telephone Transplant Hepatology Marleny Pino RN Liver mass (Primary Dx); Awaiting organ transplant status; Hepatic cirrhosis, unspecified hepatic cirrhosis type, unspecified whether ascites present (HCC); Cancer screening 12/28/2018 Orders Only Transplant Hepatology Marleny Pino RN Follow-up 12/28/2018 Telephone Transplant Hepatology Tim Ramos MD Sood, Gagan K., MD [...] Telephone Transplant Hepatology Tim Ramos MD Changela, Kinjal M., MD Hoffman, Maria, MD Kemal, MD Valente Mckenna Khannan K., MD Thrombocytopenia (HCC); Cirrhosis of liver with ascites, unspecified hepatic cirrhosis type (HCC); Portal hypertensive gastropathy (HCC); Acute ITP (HCC); Chronic ITP (idiopathic thrombocytopenia) (HCC); Awaiting organ transplant status; Decompensated hepatic cirrhosis (HCC); Portal hypertension (HCC); Indirect hyperbilirubinemia; Hepatic encephalopathy (HCC); Liver mass; Ascites of liver; Chronic diarrhea; Epigastric pain; Coagulopathy (HCC); Hepatocellular carcinoma (HCC) 11/29/2018 [facility] General Internal Medicine - Encounter 12/11/2018 11/29/2018 Travel Marleny Pino RN Follow-up 11/28/2018 Telephone Transplant Hepatology Marleny Pino RN Hematolgy Consult 11/20/2018 Telephone Transplant Hepatology Tim Ramos MD Khaderi, Saira Aijaz, MD Awaiting organ transplant status (Primary Dx); [...] said pt has been in hospital in [facility] since 10/06 i transferred the daughter to speak w/marleny. Itinerary mailed. ) 10/12/2018 Telephone Transplant Hepatology [...] Screening for endocrine/metabolic/immunity disorders 07/25/2018 Hospital Encounter JaTim matos MD Mindikoglu, Ayse Leyla, MD MPH Decompensated [...] Dx) 02/17/2018 Orders Only Transplant Hepatology after 01/09/2018 Family History Medical History Relation Name Comments [...] Lot Implanted Type Area Manufactur er 02/18/2017 [id number] / / [id number] Device Clsr Angio-Seal Vip 6fr Cardiovasc [facility] [id number] - [id number] ular MED:CARDIA Implanted: Qty: 1 on 04/27/2016 [...] 10/24/2018 Awaiting organ transplant DIFFERENTIAL 11:57 AM TIRE VULCANIZER status Cirrhosis of liver with ascites, unspecified hepatic cirrhosis type (HCC) PROTHROMBIN TIME/INR Routine 10/24/2018 Awaiting organ transplant 11:57 AM TIRE VULCANIZER status Cirrhosis of liver with ascites, unspecified hepatic cirrhosis type (HCC) COMPREHENSIVE METABOLIC Routine 10/24/2018 Awaiting organ transplant PANEL 11:57 AM TIRE VULCANIZER status Cirrhosis of liver with ascites, unspecified hepatic cirrhosis type (HCC) CBC W/PLT COUNT & AUTO Routine 10/24/2018 Awaiting organ transplant DIFFERENTIAL 11:57 AM TIRE VULCANIZER status Cirrhosis of liver with ascites, unspecified hepatic cirrhosis type (HCC) BILIRUBIN, DIRECT Routine 10/24/2018 Awaiting organ transplant 11:57 AM TIRE VULCANIZER status Cirrhosis of liver with ascites, unspecified hepatic cirrhosis type (HCC) ALPHA FETOPROTEIN (AFP), Routine 10/24/2018 Awaiting organ transplant TUMOR MARKER 11:57 AM TIRE VULCANIZER status Cancer screening Liver mass Cirrhosis of liver with ascites, unspecified hepatic cirrhosis type (HCC) BILIRUBIN, DIRECT Routine 10/03/2018 Awaiting organ transplant 11:09 AM TIRE VULCANIZER status PROTHROMBIN TIME/INR Routine 10/03/2018 Awaiting organ transplant 11:09 AM TIRE VULCANIZER status CBC W/PLT COUNT & AUTO Routine 10/03/2018 Awaiting organ transplant DIFFERENTIAL 11:09 AM TIRE VULCANIZER status COMPREHENSIVE METABOLIC Routine 10/03/2018 Awaiting organ transplant PANEL 11:09 AM TIRE VULCANIZER status (CELLAVISION MANUAL DIFF) Routine 09/05/2018 Awaiting organ transplant 1:31 PM TIRE VULCANIZER status CBC W/PLT COUNT & AUTO Routine 09/05/2018 Awaiting organ transplant DIFFERENTIAL 1:31 PM TIRE VULCANIZER status PROTHROMBIN TIME/INR Routine 09/05/2018 Awaiting organ transplant 1:31 PM TIRE VULCANIZER status COMPREHENSIVE METABOLIC Routine 09/05/2018 Awaiting organ transplant PANEL 1:31 PM TIRE VULCANIZER status CBC W/PLT COUNT & AUTO Routine 09/05/2018 Awaiting organ transplant DIFFERENTIAL 1:31 PM TIRE VULCANIZER status BILIRUBIN, DIRECT Routine 09/05/2018 Awaiting organ transplant 1:31 PM TIRE VULCANIZER status MR ABDOMEN WITH/WITHOUT Routine 09/05/2018 Awaiting organ transplant IV CONTRAST 1:21 PM TIRE VULCANIZER status Cirrhosis of liver without ascites, unspecified hepatic cirrhosis type (HCC) POCT-CREATININE Routine 09/05/2018 12:48 PM TIRE VULCANIZER XR DXA BONE DENSITY STUDY Routine 07/25/2018 Screening for 12:59 PM TIRE VULCANIZER endocrine/metabolic/immun ity disorders CBC W/PLT COUNT & AUTO Routine 07/25/2018 Awaiting organ transplant DIFFERENTIAL 12:20 PM TIRE VULCANIZER status CBC W/PLT COUNT & AUTO Routine 07/25/2018 Awaiting organ transplant DIFFERENTIAL 12:20 PM TIRE VULCANIZER status PROTHROMBIN TIME/INR Routine 07/25/2018 Awaiting organ transplant 12:19 PM TIRE VULCANIZER status COMPREHENSIVE METABOLIC Routine 07/25/2018 Awaiting organ transplant PANEL 12:19 PM TIRE VULCANIZER status BILIRUBIN, DIRECT Routine 07/25/2018 Awaiting organ transplant 12:19 PM TIRE VULCANIZER status ALPHA FETOPROTEIN (AFP), Routine 07/25/2018 Awaiting organ transplant TUMOR MARKER 12:19 PM TIRE VULCANIZER status Cancer screening ED ECG INTERPRETATION Routine [...] TUMOR MARKER 9:46 AM CDT status after 01/09/2018 Results * RHYTHM STRIP - SCAN (12/12/2018 [...] included. WBC 4.5 3.5 - 10.5 K/L [facility] RBC 2.52 (L) 3.93 - 5.22 M/L [facility] Hemoglobin 8.9 (L) 11.2 - 15.7 GM/DL [facility] Hematocrit 26.4 (L) 34.1 - 44.9 % [facility] MCV 104.8 (H) 79.4 - 94.8 fL [facility] MCH 35.3 (H) 25.6 - 32.2 pg [facility] MCHC 33.7 32.2 - 35.5 GM/DL [facility] RDW 15.9 (H) 11.7 - 14.4 % [facility] Platelets 28 (L) 150 - 450 K/CU MM [facility] MPV 11.2 9.4 - 12.3 fL [facility] nRBC 0 0 - 0 /100 WBC [facility] % Neutros 64 % [facility] % Lymphs 19 % [facility] % Monos 15 % [facility] % Eos 1 % [facility] % Baso 1 % [facility] # Neutros 2.85 1.56 - 6.13 K/L [facility] # Lymphs 0.83 (L) 1.18 - 3.74 K/L [facility] # Monos 0.67 (H) 0.24 - 0.36 K/L [facility] # Eos 0.06 0.04 - 0.36 K/L [facility] # Baso 0.03 0.01 - 0.08 K/L [facility] Immature 1 0 - 1 % [facility] Granulocytes-[facility] Specimen Blood Performing Organization Address City/State/Zipcode Phone Number [facility] [address] [place] [address] [facility] * Prothrombin time/INR (12/11/2018 6:41 AM CDT) Only the most recent of 19 results within the time period is included. Protime 19.4 (H) 11.7 - 14.7 seconds [facility] INR 1.6 <=5.9 [facility] Specimen Blood Narrative Performed At RECOMMENDED COUMADIN/WARFARIN INR THERAPY RANGES [facility] STANDARD DOSE: 2.0 - 3.0 Includes: PROPHYLAXIS for venous thrombosis, [facility] systemic embolization; TREATMENT for venous thrombosis and/or pulmonary embolus. HIGH RISK: Target INR is 2.5-3.5 for patients with mechanical heart valves. Performing Organization Address [facility] Phone Number [facility] [address] [place] [address] [facility] * Hepatic function panel (12/11/2018 6:41 AM CDT) Only the most recent of 14 results within the time period is included. Protein, Total 8.2 6.0 - 8.3 gm/dL [facility] Albumin 2.5 (L) 3.5 - 5.0 g/dL [facility] Total Bilirubin 7.7 (H) 0.2 - 1.2 mg/dL [facility] Bilirubin, Direct 2.0 (H) 0.1 - 0.5 mg/dL [facility] Alkaline Phosphatase 142 40 - 150 U/L [facility] AST 61 (H) 5 - 34 U/L [facility] ALT 35 6 - 55 U/L [facility] Specimen Blood Narrative Performed At Specimen moderately icteric [facility] Performing Organization Address City/[facility]/Zipcode Phone Number [facility] [address] [place] [address] [facility] * Basic metabolic panel (12/11/2018 6:41 AM CDT) Only the most recent of 14 results within the time period is included. Sodium 131 (L) 136 - 145 meq/L [facility] Potassium 4.5 3.5 - 5.1 meq/L [facility] Chloride 103 98 - 107 meq/L [facility] CO2 26 22 - 29 meq/L [facility] BUN 18 7 - 21 mg/dL [facility] Creatinine 0.62 0.57 - 1.25 mg/dL [facility] Glucose 106 (H) 70 - 105 mg/dL [facility] Calcium 8.5 8.4 - 10.2 mg/dL [facility] EGFR 101Comment: ESTIMATED GFR IS mL/min/1.73 sq m [facility] NOT ACCURATE CREATININE [facility] CLEARANCE IN PREDICTING GLOMERULAR FILTRATION RATE. ESTIMATED GFR IS NOT APPLICABLE FOR DIALYSIS PATIENTS. Specimen Blood Narrative Performed At Specimen moderately icteric [facility] Performing Organization Address City/[facility] Phone Number [facility] [address] [place] [address] [facility] * Prepare Leuko-Red PLT (12/10/2018 11:54 PM CDT) Only the most recent of 5 results within the time period is included. Unit ABO O Pos [place] UNIT NUMBER [id number] [place] Status TX_TIMEINCHART [place] Blood Bank Product PLATELETS [place] PRODUCT CODE [id number] [place] Specimen Blood Performing Organization Address [facility] Phone Number [place] * Manual Differential (12/10/2018 4:19 AM CDT) Only the most recent of 3 results within the time period is included. % Neutros 78 % [facility] % Lymphs 8 % [facility] % Monos 13 % [facility] % Eos 1 % [facility] # Neutros 2.89 1.56 - 6.13 K/ul [facility] # Lymphs 0.30 (L) 1.18 - 3.74 K/ul [facility] # Monos 0.48 (H) 0.24 - 0.36 K/uL [facility] # Eos 0.04 0.04 - 0.36 K/uL [facility] Total Counted 100 [facility] Smudge Cells Present [facility] Giant Platelet Present [facility] Anisocytosis 1+ few [facility] Poikilocytes 1+ few [facility] Platelet Conc Decreased [facility] Specimen Blood Narrative Performed At Received comment: [facility] User comments: [facility] Slide comments: Performing Organization Address City/[facility] Phone Number [address] * Transfuse Leuko-Red PLT (12/09/2018 4:57 PM CDT) Only the most recent of 10 results within the time period is included. * Type and screen, automated (12/09/2018 11:28 AM CDT) Only the most recent of 2 results within the time period is included. Ab Scrn NEGATIVE [facility] Specimen Blood Performing Organization Address [facility] Phone Number [address] * ABORH, manual (12/09/2018 11:28 AM CDT) Only the most recent of 2 results within the time period is included. ABO Grouping A [facility] Rh Factor POS [facility] Specimen Blood Performing Organization Address City/[facility] Phone Number [address] * Lipase (12/09/2018 4:11 AM CDT) Only the most recent of 2 results within the time period is included. Lipase 27 8 - 78 U/L [facility] Specimen Blood Narrative Performed At Specimen moderately icteric [facility] Performing Organization Address City/State/Zipcode Phone Number [facility] [address] [place] [address] [facility] * NM bone scan whole body (12/05/2018 3:31 PM CDT) Specimen Narrative Performed At FINAL REPORT GE [facility] PROCEDURE: BONE SCAN, WHOLE BODY CPT CODE:[id number] INDICATION:Liver lesion, exclude metastatic disease. On liver [...] MD Report Verified Date/Time:12/05/2018 16:40:17 Reading Location: [address] [facility]lighted Med Reading Room Procedure Note Interface, External Ris In - 12/05/2018 4:42 PM CDT FINAL REPORT PROCEDURE: BONE SCAN, WHOLE BODY CPT CODE: [id number] INDICATION: Liver lesion, exclude metastatic disease. On [...] Report Verified Date/Time: 12/05/2018 16:40:17 Reading Location: [address] [facility] Reading Room Performing Organization Address City/State/Zipcode Phone Number RIS * CT chest without IV contrast (12/04/2018 9:18 PM CDT) Specimen Narrative Performed At FINAL REPORT [employer] [facility] CT scan of the chest. CLINICAL HISTORY: [...] MD Report Verified Date/Time:12/04/2018 23:03:08 Reading Location: [address] Consult Reading Room Procedure Note Interface, [...] Date/Time: 12/04/2018 23:03:08 Reading Location: [facility] C013 Consult Reading Room Performing Organization Address [facility] Phone Number [facility] * Hepatitis B Panel (12/03/2018 12:10 PM CDT) Hep B Core Total Ab REACTIVE (A) Nonreactive [facility] Hep B S Ab 841.0 (H) <8.0 mIU/mL [facility] hepatitis B Surface Ag NON-REACTIVE Nonreactive [facility] Specimen Blood Performing Organization Address [facility] Phone Number [address] [address] [facility] * Hepatitis C antibody (12/03/2018 12:10 PM CDT) Hepatitis C Ab NON-REACTIVE Nonreactive [facility] Specimen Blood Performing Organization Address [facility] Phone Number [address] [address] [facility] * Hepatitis B core antibody, total (12/03/2018 12:10 PM CDT) Hep B Core Total Ab REACTIVE (A) Nonreactive [facility] Specimen Blood Performing Organization Address City/[facility] Phone Number [address] * Iron, TIBC, % sat. (without ferritin) (12/03/2018 4:09 AM CDT) Iron 183.0 (H) 40.0 - 160.0 ug/dL [facility] TIBC 179 (L) 250 - 450 ug/dL [facility] Iron % Saturation 102 (H) 20 - 55 % [facility] Specimen Blood Performing Organization Address City/[facility] Phone Number [address] * Folate, Serum (12/03/2018 4:09 AM CDT) Folate 11.8 >=7.0 ng/mL [facility] Specimen Blood Performing Organization Address City/[facility] Phone Number [address] * Ferritin (12/03/2018 4:09 AM CDT) Ferritin 124 5 - 275 ng/mL [facility] Specimen Blood Performing Organization Address [facility] Phone Number [address] * Vitamin B12 (12/03/2018 4:09 AM CDT) Vitamin B12 588 213 - 816 pg/mL [facility] Specimen Blood Performing Organization Address City/[facility] Phone Number [address] * Reticulocyte count (12/02/2018 5:33 AM CDT) % Retic 5.0 (H) 0.5 - 1.7 % [facility] Specimen Blood Performing Organization Address City/[facility] Phone Number [address] * Hepatitis B PCR, quantitative (12/01/2018 5:39 AM CDT) HBV PCR, Quantitative HBV DNA not detected HBV DNA not detected [facility] Specimen Blood Narrative Performed At This test uses a Real-Time Polymerase Chain Reaction (RT-PCR) methodology and [facility] was performed using [employer] AmpliPrep/KIP TaqMan HBV Test, v2.0 ([employer] [facility] [employer] Reportable range for this assay is 20 - 170,000,000 IU per mL (1.30 - 8.23 Log IU/mL). Performing Organization Address [facility] Phone Number [address] * Hepatitis B core antibody, IgM (12/01/2018 5:39 AM CDT) Hep B C IgM NON-REACTIVE Nonreactive [facility] Specimen Blood Performing Organization Address [facility] Phone Number [address] * Phosphorus (12/01/2018 5:39 AM CDT) Only the most recent of 3 results within the time period is included. Phosphorus 4.1 2.3 - 4.7 mg/dL [facility] Specimen Blood Performing Organization Address [facility] Phone Number [place] [address] [place] [address] * Magnesium (12/01/2018 5:39 AM CDT) Only the most recent of 3 results within the time period is included. Magnesium 1.5 (L) 1.6 - 2.6 mg/dL [facility] Specimen Blood Performing Organization Address [facility] Phone Number [place] [address] [place] [address] * MR abdomen without & with IV contrast (11/30/2018 12:07 AM CDT) Only the most recent of 3 results within the time period is included. Specimen Narrative Performed At FINAL REPORT [facility] TECHNIQUE: MRI of the abdomen WITHOUT and [...] MD Report Verified Date/Time:11/30/2018 07:35:42 Reading Location: [facility] Diagnostic Imaging Reading Room - [place] [address] Procedure Note Interface, External Ris In - [...] Report Verified Date/Time: 11/30/2018 07:35:42 Reading Location: [facility] Diagnostic Imaging Reading Room - [place] [address] Performing Organization Address City/State/Zipcode Phone Number [facility] * PT/aPTT (11/29/2018 9:15 AM CDT) Protime 21.6 (H) 11.7 - 14.7 seconds [facility] INR 1.8 <=5.9 [facility] PTT 35.6 22.5 - 36.0 seconds [facility] Specimen Blood Narrative Performed At RECOMMENDED COUMADIN/WARFARIN INR THERAPY RANGES [facility] STANDARD DOSE: 2.0 - 3.0 Includes: PROPHYLAXIS for venous thrombosis, [facility] systemic embolization; TREATMENT for venous thrombosis and/or pulmonary embolus. HIGH RISK: Target INR is 2.5-3.5 for patients with mechanical heart valves. Performing Organization Address City/State/Zipcode Phone Number [facility] [address] [place] [address] [facility] * Fibrinogen (11/29/2018 9:15 AM CDT) Fibrinogen 118 (L) 225 - 434 mg/dl [facility] Specimen Blood Performing Organization Address [facility] Phone Number [id number] [place] [address] * D-dimer (11/29/2018 9:15 AM CDT) D-Dimer, Quant 13.03 (H) <0.50 MG/L FEU [facility] Specimen Blood Narrative Performed At Intended Use: The D-Dimer Assay can be used to aid in the diagnosis of Deep Vein [facility] Thrombosis (DVT) and Pulmonary Embolism Disease (PED). [facility] In patients with low pre-test probability, various studies concerning STA Liatest D-dimer test have reported that with a cutoff value of 0.50 MG/L FEU, the Negative Predictive Value (NPV) regarding the exclusion of thrombosis is within 95-100% range. Performing Organization Address [facility] Phone Number [address] * Peripheral Blood Smear - Hold only (11/29/2018 5:07 AM CDT) Peripheral Smear Save SAVE [facility] Specimen Blood Performing Organization Address City/[facility] Phone Number [address] * Alpha fetoprotein (AFP), tumor marker (10/24/2018 11:57 AM TIRE VULCANIZER) Only the most recent of 3 results within the time period is included. Alpha-Fetoprotein 2.7 <10.0 ng/mL [facility] Specimen Blood Performing Organization Address [facility] Phone Number [place] [address] [place] [address] * Bilirubin, direct (10/24/2018 11:57 AM TIRE VULCANIZER) Only the most recent of 6 results within the time period is included. Bilirubin, Direct 2.4 (H) 0.1 - 0.5 mg/dL [facility] Specimen Blood Performing Organization Address City/State/Zipcode Phone Number [facility] [address] [place] [address] [facility] * Comprehensive metabolic panel (10/24/2018 11:57 AM TIRE VULCANIZER) Only the most recent of 6 results within the time period is included. Protein, Total 7.1 6.0 - 8.3 gm/dL [facility] Albumin 3.0 (L) 3.5 - 5.0 g/dL [facility] Alkaline Phosphatase 154 (H) 40 - 150 U/L [facility] Total Bilirubin 8.7 (H) 0.2 - 1.2 mg/dL [facility] Sodium 140 136 - 145 meq/L [facility] Potassium 4.3 3.5 - 5.1 meq/L [facility] Chloride 108 (H) 98 - 107 meq/L [facility] CO2 26 22 - 29 meq/L [facility] BUN 9 7 - 21 mg/dL [facility] Creatinine 0.54 (L) 0.57 - 1.25 mg/dL [facility] Glucose 98 70 - 105 mg/dL [facility] Calcium 9.1 8.4 - 10.2 mg/dL [facility] AST 63 (H) 5 - 34 U/L [facility] ALT 31 6 - 55 U/L [facility] EGFR 119Comment: ESTIMATED GFR IS mL/min/1.73 sq m [facility] NOT ACCURATE CREATININE [facility] CLEARANCE IN PREDICTING GLOMERULAR FILTRATION RATE. ESTIMATED GFR IS NOT APPLICABLE FOR DIALYSIS PATIENTS. Specimen Blood Narrative Performed At Specimen moderately icteric [facility] Performing Organization Address [facility]/Zipcode Phone Number [facility] [address] [place] [address] [facility] * CBC with platelet count + automated diff (10/03/2018 11:09 AM [employer]ULCAN[employer]ER) Only the most recent of 2 results [...] Performing Organization Information: Site ID: [id number] Name: [facility] Address: [address] [place] [id number] Director: Li Alvarenga Performing Organization Address City/State/Zipcode Phone Number [facility] [address] [place] [address] [facility] * POC-Creatinine (09/05/2018 12:48 PM [employer]ULCAN[employer]ER) Only the most recent of 2 results within the time period is included. POC-Creatinine 0.4 (L)Comment: TESTED AT 0.6 - 1.3 mg/dL [facility] [address] [facility] [address] POC-EGFR 168 mL/min/1.73M2 [facility] Specimen Blood Performing Organization Address City/State/Zipcode Phone Number [facility] [address] [place] [address] [facility] * XR dxa bone density study (07/25/2018 12:59 PM TIRE VULCANIZER) Specimen Narrative Performed At FINAL REPORT [employer] Bone mineral density study 07/25/2018 at 1259. CLINICAL INDICATION: Osteoporosis. COMPARISON: None available FINDINGS: Evaluation of the left and right femoral necks and lumbar spine was performed utilizing a [employer] Advance bone densitometer. The left femoral neck [...] MD Report Verified Date/Time:07/25/2018 15:48:51 Reading Location: [facility] Radiology Reading Room Procedure Note Interface, External Ris In - 07/25/2018 3:51 PM [employer]ULCAN[employer]ER FINAL REPORT Bone mineral density study 07/25/2018 at 1259. CLINICAL INDICATION: Osteoporosis. COMPARISON: None available FINDINGS: Evaluation of the left and right femoral necks and lumbar spine was performed utilizing a [employer] Advance bone densitometer. The left femoral neck [...] Report Verified Date/Time: 07/25/2018 15:48:51 Reading Location: [facility] Radiology Reading Room Performing Organization Address City/State/Zipcode Phone Number [facility] * ED ECG Interpretation (05/23/2018 1:18 PM CDT) Narrative Performed At Ronen Bunch MD 05/23/20181:18 PM ECG/EKG Interpretation Date/Time: 05/23/2018 10:42 AM Performed by: RONNE BUNCH Authorized by: RONEN BUNCH The ECG [...] CDT) Specimen Narrative Performed At FINAL REPORT [employer] Chest one view INDICATION: Shortness of breath COMPARISON: 11/05/2016 IMPRESSION: Previously seen right upper lobe nodularity is not apparent on this study. There are coarsened interstitial markings. No focal consolidation, edema, pleural effusion, or pneumothorax is seen. The cardiomediastinal silhouette is unremarkable. The bones appear intact. Signed: Eric Velazquez MD Report Verified Date/Time:05/23/2018 12:16:57 Reading Location: [facility] Radiology Reading Room Procedure Note Interface, External [...] Report Verified Date/Time: 05/23/2018 12:16:57 Reading Location: [facility] Radiology Reading Room Performing Organization Address City/State/Zipcode Phone Number [facility] * Troponin I (05/23/2018 11:17 AM CDT) Troponin I <0.01 0.00 - 0.03 ng/mL [facility] Specimen Blood Narrative Performed At Troponin I (TnI) levels must be interpreted in the context of the presenting [facility] symptoms and the clinical findings. Elevated TnI levels indicate myocardial [facility] damage, but are not specific for ischemic heart disease. Elevated TnI levels are seen in patients with other cardiac conditions (including myocarditis and congestive heart failure), and slight TnI elevations occur in patients with other conditions, including sepsis, renal failure, acidosis, acute neurological disease, and persistent tachyarrhythmia. Performing Organization Address City/State/Zipcode Phone Number [place] [phone] [place] [address] [facility] * Creatine Kinase (CK), Total and MB (05/23/2018 11:17 AM CDT) Total CK 115 29 - 200 U/L [facility] CK-MB 1.5 0.0 - 6.6 ng/mL [facility] MB Relative Index 1.3 % [facility] Specimen Blood Narrative Performed At CK-MB Reference Range: [facility] <6.7Normal [facility] 6.7-10.0Borderline >10.0 Abnormal Performing Organization Address City/State/Zipcode Phone Number [address] [address] [facility] * ECG 12 lead (05/23/2018 10:42 AM CDT) Specimen Narrative Performed At Ventricular Rate 74 BPM GE MUSE Atrial Rate 74 BPM P-R Interval 154 ms QRS Duration 92 ms Q-T Interval 424 ms QTC Calculation(Bazett) 470 ms P [place] 45 degrees R [place] -20 degrees T [place] 68 degrees Normal sinus rhythm Possible Left atrial enlargement Left ventricular hypertrophy Abnormal ECG Confirmed by MD Zabala Mahboob ([id number]) on 05/23/2018 10:07:49 PM Procedure Note Interface, External Ris In - 05/23/2018 10:07 PM CDT Ventricular Rate 74 BPM Atrial Rate 74 BPM P-R Interval 154 ms QRS Duration 92 ms Q-T Interval 424 ms QTC Calculation(Bazett) 470 ms P [place] 45 degrees R [place] -20 degrees T [place] 68 degrees Normal sinus rhythm Possible Left atrial enlargement Left ventricular hypertrophy Abnormal ECG Confirmed by MD Zabala Mahboob ([id number]) on 05/23/2018 10:07:49 PM Performing Organization Address City/State/Zipcode Phone Number [facility] M[facility] after 01/09/2018 Insurance Payer Benefit Subscriber ID Type Phone Address Plan / Group BLUE CROSS/BLUE SHIELD [facility] OS xxxxxxxxxxxxxxx PPO [phone] [address] POS/PP[place] [address] O CARE IMPROVEMENT MEDICARE CARE xxxxxxxxx MGD CARE IMPROVEMEN T PLUS Advance Directives For more information, please contact: [address] [address] Date Inactivated Comments Code Status Date Activated 12/11/2018 5:15 PM Full Code 11/29/2018 3:39 AM This code status was determined by: Patient 04/27/2016 4:08 PM Full Code 04/27/2016 6:18 AM This code status was determined by: Patient
[2019-01-10 15:27] LABS: BASOPHILS % 0.2 % (0.0-1.0); EOSINOPHILS % 0.3 % (0.0-6.0); HEMATOCRIT 29.2 % (34.2-44.1); HEMOGLOBIN 9.3 g/dL (12.0-16.0); LYMPHOCYTES # (AUTO) 0.7 (1.0-3.2); LYMPHOCYTES % 10.8 % (18.0-39.1); MEAN CORPUSCULAR HEMOGLOBIN 35.8 pg (28-32); MEAN CORPUSCULAR HGB CONC 31.8 g/dL (31-35); MEAN CORPUSCULAR VOLUME 112.3 fL (81-99); MONOCYTES # (AUTO) 0.5 (0.2-0.8); MONOCYTES % 7.9 % (4.4-11.3); NEUTROPHILS # (AUTO) 4.9 (2.1-6.9); NEUTROPHILS % 80.1 % (38.7-80.0); RED CELL DISTRIBUTION WIDTH 20.2 % (11.7-14.4)
[2019-01-10 15:35] LABS: BILIRUBIN,URINE NEGATIVE (NEGATIVE); CLARITY,URINE CLEAR (CLEAR); COLOR,URINE AMBER (YELLOW); KETONES,URINE NEGATIVE (NEGATIVE); LEUKOCYTE ESTERASE ,URINE NEGATIVE (NEGATIVE); NITRITE,URINE NEGATIVE (NEGATIVE); PROTEIN,URINE DIPSTICK NEGATIVE (NEGATIVE); URINE UROBILINOGEN 0.2 mg/dL (0.2 - 1)
[2019-01-10 15:39] LABS: INR 2.37; PROTHROMBIN TIME 26.6 seconds (11.9-14.5)
[2019-01-10 15:40] LABS: PARTIAL THROMBOPLASTIN TIME 49.5 seconds (23.8-35.5)
--- NOTE | 2019-01-10 15:44 | NUR ---
RED/GREEN TOP RE-DRAWN AND SENT OFF
[2019-01-10 15:47] LABS: PLATELET COUNT 48 x10e3/uL (140-360)
[2019-01-10 15:59] LABS: BACTERIA,URINE MANY /HPF; EPITHELIAL CELLS,URINE MODERATE /LPF
--- NOTE | 2019-01-10 16:10 | Diagnostic Imaging Report ---
Examination: Single AP view of the chest. COMPARISON: Chest radiograph 01/01/2019 INDICATION: Shortness of breath DISCUSSION: Right upper extremity PICC has been removed. Lungs are well-inflated and without focal consolidation, pleural effusion, or pneumothorax. Stable cardiomediastinal contour. No overt pulmonary edema. No acute osseous abnormality. IMPRESSION: No acute cardiopulmonary abnormality. Signed by: Dr. Emmanuel Weeks M.D. on 01/10/2019 4:07 PM
[2019-01-10 16:34] LABS: ALANINE AMINOTRANSFERASE 27 IU/L (0-55); ALBUMIN 2.4 g/dL (3.5-5.0); ALBUMIN/GLOBULIN RATIO 0.6 (0.8-2.0); ALKALINE PHOSPHATASE 88 IU/L (40-150); ANION GAP 8.1 mmol/L (8-16); BLOOD UREA NITROGEN 8 mg/dL (7-26); BUN/CREATININE RATIO 12 (6-25); CALCIUM 8.5 mg/dL (8.4-10.2); CARBON DIOXIDE 26 mmol/L (22-29); CHLORIDE 102 mmol/L (98-107); CREATINE KINASE 62 IU/L (29-168); CREATININE, SERUM 0.67 mg/dL (0.57-1.11); EST GLOMERULAR FILTRATION RATE > 60 ML/MIN (60-); GLUCOSE 112 mg/dL (74-118); MAGNESIUM 1.3 MG/DL (1.3-2.1); PHOSPHORUS 1.4 MG/DL (2.3-4.7); POTASSIUM 4.1 mmol/L (3.5-5.1); SODIUM 132 mmol/L (136-145)
[2019-01-10] MEDS ORDERED: SODIUM CHLORIDE FLUSH 10 ML SYR INJ PRN (18:00)
--- OUTSIDE RECORDS SUMMARY | 2019-01-10 18:43 | XMS REPORT | Clinical Summary ---
Author Author [facility] Organization [place] Address Unknown Phone Unavailable Care Team Providers Care Print Producer Name Role Phone Asked, No Pcp PCP [...] xxxxxxxxx 2016- CARE SANAZ 2008 Present HMO/PPO [facility] xxxxxxxxx 2016- THCARE Present CHOICE/CHO ICE + HMO UHC MEDICARE UNITED xxxxxxxxx 2016- HEALTHCARE Present MEDICARE Advance Directives Patient has advance care planning documents on file. For more information, luciano hallman contact: Edis Marc [address] [place] [address]
--- OUTSIDE RECORDS SUMMARY | 2019-01-10 18:44 | XMS REPORT | Clinical Summary ---
Author Author [facility] Address Unknown Phone Unavailable Care Team Providers Care Subassembly Assembler Name Role Phone Aren Martel Estefani PCP [...] We will also need clearance from her FINANCIAL INSTITUTION MANAGER oncologist that she does not have [...] abdominal pain. 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 I have no seen documentation from her FINANCIAL INSTITUTION MANAGER oncologist but she states that the [...] pain; Coagulopathy (HCC); Hepatocellular carcinoma (HCC) 11/29/2018 [facility] General Internal Medicine - Encounter 12/11/2018 11/29/2018 [...] said pt has been in hospital in [facility] since 10/06 i transferred the daughter to [...] Lot Implanted Type Area Manufactur er 02/18/2017 [id number] / / [id number] Device Clsr Angio-Seal Vip 6fr Cardiovasc [facility] [id number] - [id number] ular MED:CARDIA Implanted: Qty: 1 on 04/27/2016 [...] 10/24/2018 Awaiting organ transplant DIFFERENTIAL 11:57 AM MOTOR TUNE UP SPECIALIST status Cirrhosis of liver with ascites, unspecified hepatic cirrhosis type (HCC) PROTHROMBIN TIME/INR Routine 10/24/2018 Awaiting organ transplant 11:57 AM MOTOR TUNE UP SPECIALIST status Cirrhosis of liver with ascites, unspecified hepatic cirrhosis type (HCC) COMPREHENSIVE METABOLIC Routine 10/24/2018 Awaiting organ transplant PANEL 11:57 AM MOTOR TUNE UP SPECIALIST status Cirrhosis of liver with ascites, unspecified hepatic cirrhosis type (HCC) CBC W/PLT COUNT & AUTO Routine 10/24/2018 Awaiting organ transplant DIFFERENTIAL 11:57 AM MOTOR TUNE UP SPECIALIST status Cirrhosis of liver with ascites, unspecified hepatic cirrhosis type (HCC) BILIRUBIN, DIRECT Routine 10/24/2018 Awaiting organ transplant 11:57 AM MOTOR TUNE UP SPECIALIST status Cirrhosis of liver with ascites, unspecified hepatic cirrhosis type (HCC) ALPHA FETOPROTEIN (AFP), Routine 10/24/2018 Awaiting organ transplant TUMOR MARKER 11:57 AM MOTOR TUNE UP SPECIALIST status Cancer screening Liver mass Cirrhosis of liver with ascites, unspecified hepatic cirrhosis type (HCC) BILIRUBIN, DIRECT Routine 10/03/2018 Awaiting organ transplant 11:09 AM MOTOR TUNE UP SPECIALIST status PROTHROMBIN TIME/INR Routine 10/03/2018 Awaiting organ transplant 11:09 AM MOTOR TUNE UP SPECIALIST status CBC W/PLT COUNT & AUTO Routine 10/03/2018 Awaiting organ transplant DIFFERENTIAL 11:09 AM MOTOR TUNE UP SPECIALIST status COMPREHENSIVE METABOLIC Routine 10/03/2018 Awaiting organ transplant PANEL 11:09 AM MOTOR TUNE UP SPECIALIST status (CELLAVISION MANUAL DIFF) Routine 09/05/2018 Awaiting organ transplant 1:31 PM MOTOR TUNE UP SPECIALIST status CBC W/PLT COUNT & AUTO Routine 09/05/2018 Awaiting organ transplant DIFFERENTIAL 1:31 PM MOTOR TUNE UP SPECIALIST status PROTHROMBIN TIME/INR Routine 09/05/2018 Awaiting organ transplant 1:31 PM MOTOR TUNE UP SPECIALIST status COMPREHENSIVE METABOLIC Routine 09/05/2018 Awaiting organ transplant PANEL 1:31 PM MOTOR TUNE UP SPECIALIST status CBC W/PLT COUNT & AUTO Routine 09/05/2018 Awaiting organ transplant DIFFERENTIAL 1:31 PM MOTOR TUNE UP SPECIALIST status BILIRUBIN, DIRECT Routine 09/05/2018 Awaiting organ transplant 1:31 PM MOTOR TUNE UP SPECIALIST status MR ABDOMEN WITH/WITHOUT Routine 09/05/2018 Awaiting organ transplant IV CONTRAST 1:21 PM MOTOR TUNE UP SPECIALIST status Cirrhosis of liver without ascites, unspecified hepatic cirrhosis type (HCC) POCT-CREATININE Routine 09/05/2018 12:48 PM MOTOR TUNE UP SPECIALIST XR DXA BONE DENSITY STUDY Routine 07/25/2018 Screening for 12:59 PM MOTOR TUNE UP SPECIALIST endocrine/metabolic/immun ity disorders CBC W/PLT COUNT & AUTO Routine 07/25/2018 Awaiting organ transplant DIFFERENTIAL 12:20 PM MOTOR TUNE UP SPECIALIST status CBC W/PLT COUNT & AUTO Routine 07/25/2018 Awaiting organ transplant DIFFERENTIAL 12:20 PM MOTOR TUNE UP SPECIALIST status PROTHROMBIN TIME/INR Routine 07/25/2018 Awaiting organ transplant 12:19 PM MOTOR TUNE UP SPECIALIST status COMPREHENSIVE METABOLIC Routine 07/25/2018 Awaiting organ transplant PANEL 12:19 PM MOTOR TUNE UP SPECIALIST status BILIRUBIN, DIRECT Routine 07/25/2018 Awaiting organ transplant 12:19 PM MOTOR TUNE UP SPECIALIST status ALPHA FETOPROTEIN (AFP), Routine 07/25/2018 Awaiting organ transplant TUMOR MARKER 12:19 PM MOTOR TUNE UP SPECIALIST status Cancer screening ED ECG INTERPRETATION Routine [...] - 10.5 K/L [facility] RBC 2.52 (L) 3.93 - 5.22 M/L [facility] Hemoglobin 8.9 (L) 11.2 - 15.7 GM/DL [facility] Hematocrit 26.4 (L) 34.1 - 44.9 % [facility] MCV 104.8 (H) 79.4 - 94.8 fL [facility] MCH 35.3 (H) 25.6 - 32.2 pg [facility] MCHC 33.7 32.2 - 35.5 GM/DL [facility] RDW 15.9 (H) 11.7 - 14.4 % [facility] Platelets 28 (L) 150 - 450 K/CU MM [facility] MPV 11.2 9.4 - 12.3 fL [facility] nRBC 0 0 - 0 /100 WBC [facility] % Neutros 64 % [facility] % Lymphs 19 % [facility] % Monos 15 % [facility] % Eos 1 % [facility] % Baso 1 % [facility] # Neutros 2.85 1.56 - 6.13 K/L [facility] # Lymphs 0.83 (L) 1.18 - 3.74 K/L [facility] # Monos 0.67 (H) 0.24 - 0.36 K/L [facility] # Eos 0.06 0.04 - 0.36 K/L [facility] # Baso 0.03 0.01 - 0.08 K/L [facility] Immature 1 0 - 1 % [facility] Granulocytes-[facility] Specimen Blood Performing Organization Address City/State/Zipcode Phone Number [facility] [address] [place] [address] MEDICAL CENTER * Prothrombin time/INR (12/11/2018 6:41 AM CDT) Only the most recent of 19 results within the time period is included. Protime 19.4 (H) 11.7 - 14.7 seconds [facility] INR 1.6 <=5.9 [facility] Specimen Blood Narrative Performed At RECOMMENDED COUMADIN/WARFARIN INR THERAPY RANGES [facility] STANDARD DOSE: 2.0 - 3.0 Includes: PROPHYLAXIS for venous thrombosis, [facility] systemic embolization; TREATMENT for venous thrombosis and/or pulmonary embolus. HIGH RISK: Target INR is 2.5-3.5 for patients with mechanical heart valves. Performing Organization Address [facility] Phone Number [facility] [address] [place] [address] [facility] * Hepatic function panel (12/11/2018 6:41 AM CDT) Only the most recent of 14 results within the time period is included. Protein, Total 8.2 6.0 - 8.3 gm/dL [facility] Albumin 2.5 (L) 3.5 - 5.0 g/dL [facility] Total Bilirubin 7.7 (H) 0.2 - 1.2 mg/dL [facility] Bilirubin, Direct 2.0 (H) 0.1 - 0.5 mg/dL [facility] Alkaline Phosphatase 142 40 - 150 U/L [facility] AST 61 (H) 5 - 34 U/L [facility] ALT 35 6 - 55 U/L [facility] Specimen Blood Narrative Performed At Specimen moderately icteric [facility] Performing Organization Address City/[facility]/Zipcode Phone Number [facility] [address] [place] [address] [facility] * Basic metabolic panel (12/11/2018 6:41 AM CDT) Only the most recent of 14 results within the time period is included. Sodium 131 (L) 136 - 145 meq/L [facility] Potassium 4.5 3.5 - 5.1 meq/L [facility] Chloride 103 98 - 107 meq/L [facility] CO2 26 22 - 29 meq/L [facility] BUN 18 7 - 21 mg/dL [facility] Creatinine 0.62 0.57 - 1.25 mg/dL [facility] Glucose 106 (H) 70 - 105 mg/dL [facility] Calcium 8.5 8.4 - 10.2 mg/dL [facility] EGFR 101Comment: ESTIMATED GFR IS mL/min/1.73 sq m [facility] NOT ACCURATE CREATININE [facility] CLEARANCE IN PREDICTING GLOMERULAR FILTRATION RATE. ESTIMATED GFR IS NOT APPLICABLE FOR DIALYSIS PATIENTS. Specimen Blood Narrative Performed At Specimen moderately icteric [facility] Performing Organization Address City/[facility] Hospitalcode Phone Number [facility] [address] [place] [address] [facility] * Prepare Leuko-Red PLT (12/10/2018 11:54 PM CDT) Only the most recent of 5 results within the time period is included. Unit ABO O Pos [place] UNIT NUMBER [id number] [place] Status TX_TIMEINCHART [place] Blood Bank Product PLATELETS [place] PRODUCT CODE [id number] [place] Specimen Blood Performing Organization Address [facility] Phone Number [place] * Manual Differential (12/10/2018 4:19 AM CDT) Only the most recent of 3 results within the time period is included. % Neutros 78 % [facility] % Lymphs 8 % [facility] % Monos 13 % [facility] % Eos 1 % [facility] # Neutros 2.89 1.56 - 6.13 K/ul [facility] # Lymphs 0.30 (L) 1.18 - 3.74 K/ul [facility] # Monos 0.48 (H) 0.24 - 0.36 K/uL [facility] # Eos 0.04 0.04 - 0.36 K/uL [facility] Total Counted 100 [facility] Smudge Cells Present [facility] Giant Platelet Present [facility] Anisocytosis 1+ few [facility] Poikilocytes 1+ few [facility] Platelet Conc Decreased [facility] Specimen Blood Narrative Performed At Received comment: [facility] User comments: [facility] Slide comments: Performing Organization Address City/[facility] Hospitalcode Phone Number [address] * Transfuse Leuko-Red PLT (12/09/2018 4:57 PM CDT) Only the most recent of 10 results within the time period is included. * Type and screen, automated (12/09/2018 11:28 AM CDT) Only the most recent of 2 results within the time period is included. Ab Scrn NEGATIVE [facility] Specimen Blood Performing Organization Address [facility] Phone Number [address] * ABORH, manual (12/09/2018 11:28 AM CDT) Only the most recent of 2 results within the time period is included. ABO Grouping A [facility] Rh Factor POS [facility] Specimen Blood Performing Organization Address City/[facility] Phone Number [address] * Lipase (12/09/2018 4:11 AM CDT) Only the most recent of 2 results within the time period is included. Lipase 27 8 - 78 U/L [facility] Specimen Blood Narrative Performed At Specimen moderately icteric [facility] Performing Organization Address City/State/Zipcode Phone Number [facility] [address] [place] [address] [facility] * NM bone scan whole body (12/05/2018 3:31 PM CDT) Specimen Narrative Performed At FINAL REPORT GE [facility] PROCEDURE: BONE SCAN, WHOLE BODY CPT CODE:[id number] INDICATION:Liver lesion, exclude metastatic disease. On liver [...] MD Report Verified Date/Time:12/05/2018 16:40:17 Reading Location: [address] Conject Med Reading Room Procedure Note Interface, External Ris In - 12/05/2018 4:42 PM CDT FINAL REPORT PROCEDURE: BONE SCAN, WHOLE BODY CPT CODE: [id number] INDICATION: Liver lesion, exclude metastatic disease. On [...] Report Verified Date/Time: 12/05/2018 16:40:17 Reading Location: [address] Conject Med Reading Room Performing Organization Address City/State/Zipcode Phone Number RIS * CT chest without IV contrast (12/04/2018 9:18 PM CDT) Specimen Narrative Performed At FINAL REPORT Procyrion [facility] CT scan of the chest. [...] MD Report Verified Date/Time:12/04/2018 23:03:08 Reading Location: [address] Consult Reading Room Procedure Note Interface, [...] Verified Date/Time: 12/04/2018 23:03:08 Reading Location: [facility] C013 Consult Reading Room Performing Organization Address [facility] Phone Number RIS * Hepatitis B Panel (12/03/2018 12:10 PM CDT) Hep B Core Total Ab REACTIVE (A) Nonreactive [facility] Hep B S Ab 841.0 (H) <8.0 mIU/mL [facility] hepatitis B Surface Ag NON-REACTIVE Nonreactive [facility] Specimen Blood Performing Organization Address [facility] Phone Number [address] [address] [facility] * Hepatitis C antibody (12/03/2018 12:10 PM CDT) Hepatitis C Ab NON-REACTIVE Nonreactive [facility] Specimen Blood Performing Organization Address [facility] Hospital[facility] Phone Number [address] [address] [facility] * Hepatitis B core antibody, total (12/03/2018 12:10 PM CDT) Hep B Core Total Ab REACTIVE (A) Nonreactive [facility] Specimen Blood Performing Organization Address City/[facility]code Phone Number [address] * Iron, TIBC, % sat. (without ferritin) (12/03/2018 4:09 AM CDT) Iron 183.0 (H) 40.0 - 160.0 ug/dL [facility] TIBC 179 (L) 250 - 450 ug/dL [facility] Iron % Saturation 102 (H) 20 - 55 % [facility] Specimen Blood Performing Organization Address City/[facility] Phone Number [address] * Folate, Serum (12/03/2018 4:09 AM CDT) Folate 11.8 >=7.0 ng/mL [facility] Specimen Blood Performing Organization Address City/[facility] Phone Number [address] * Ferritin (12/03/2018 4:09 AM CDT) Ferritin 124 5 - 275 ng/mL [facility] Specimen Blood Performing Organization Address [facility] Phone Number [address] * Vitamin B12 (12/03/2018 4:09 AM CDT) Vitamin B12 588 213 - 816 pg/mL [facility] Specimen Blood Performing Organization Address City/[facility] Phone Number [address] * Reticulocyte count (12/02/2018 5:33 AM CDT) % Retic 5.0 (H) 0.5 - 1.7 % [facility] Specimen Blood Performing Organization Address City/[facility]code Phone Number [address] * Hepatitis B PCR, quantitative (12/01/2018 5:39 AM CDT) HBV PCR, Quantitative HBV DNA not detected HBV DNA not detected [facility] Specimen Blood Narrative Performed At This test uses a Real-Time Polymerase Chain Reaction (RT-PCR) methodology and [facility] was performed using [employer] AmpliPrep/KIP TaqMan HBV Test, v2.0 ([employer] [facility] [employer] Reportable range for this assay is 20 - 170,000,000 IU per mL (1.30 - 8.23 Log IU/mL). Performing Organization Address [facility] Phone Number [address] * Hepatitis B core antibody, IgM (12/01/2018 5:39 AM CDT) Hep B C IgM NON-REACTIVE Nonreactive [facility] Specimen Blood Performing Organization Address [facility] Phone Number [address] * Phosphorus (12/01/2018 5:39 AM CDT) Only the most recent of 3 results within the time period is included. Phosphorus 4.1 2.3 - 4.7 mg/dL [facility] Specimen Blood Performing Organization Address [facility] Hospitalcode Phone Number [place] [address] [place] [address] * Magnesium (12/01/2018 5:39 AM CDT) Only the most recent of 3 results within the time period is included. Magnesium 1.5 (L) 1.6 - 2.6 mg/dL [facility] Specimen Blood Performing Organization Address [facility] Hospitalcode Phone Number [place] [address] [place] [address] * MR abdomen without & with IV contrast (11/30/2018 12:07 AM CDT) Only the most recent of 3 results within the time period is included. Specimen Narrative Performed At FINAL REPORT [facility] TECHNIQUE: MRI of the abdomen WITHOUT and [...] MD Report Verified Date/Time:11/30/2018 07:35:42 Reading Location: [facility] Diagnostic Imaging Reading Room - [place] [address] Procedure Note Interface, External Ris In - [...] Report Verified Date/Time: 11/30/2018 07:35:42 Reading Location: [facility] Diagnostic Imaging Reading Room - [place] [address] Performing Organization Address City/State/Zipcode Phone Number GE RIS * PT/aPTT (11/29/2018 9:15 AM CDT) Protime 21.6 (H) 11.7 - 14.7 seconds [facility] INR 1.8 <=5.9 [facility] PTT 35.6 22.5 - 36.0 seconds [facility] Specimen Blood Narrative Performed At RECOMMENDED COUMADIN/WARFARIN INR THERAPY RANGES [facility] STANDARD DOSE: 2.0 - 3.0 Includes: PROPHYLAXIS for venous thrombosis, [facility] systemic embolization; TREATMENT for venous thrombosis and/or pulmonary embolus. HIGH RISK: Target INR is 2.5-3.5 for patients with mechanical heart valves. Performing Organization Address City/State/Zipcode Phone Number [facility] [address] [place] [address] MEDICAL CENTER * Fibrinogen (11/29/2018 9:15 AM CDT) Fibrinogen 118 (L) 225 - 434 mg/dl [facility] Specimen Blood Performing Organization Address [facility] Phone Number [id number] [place] [address] * D-dimer (11/29/2018 9:15 AM CDT) D-Dimer, Quant 13.03 (H) <0.50 MG/L FEU [facility] Specimen Blood Narrative Performed At Intended Use: The D-Dimer Assay can be used to aid in the diagnosis of Deep Vein [facility] Thrombosis (DVT) and Pulmonary Embolism Disease (PED). [facility] In patients with low pre-test probability, various studies concerning STA Liatest D-dimer test have reported that with a cutoff value of 0.50 MG/L FEU, the Negative Predictive Value (NPV) regarding the exclusion of thrombosis is within 95-100% range. Performing Organization Address [facility] Phone Number [address] * Peripheral Blood Smear - Hold only (11/29/2018 5:07 AM CDT) Peripheral Smear Save SAVE [facility] Specimen Blood Performing Organization Address City/[facility]code Phone Number [address] * Alpha fetoprotein (AFP), tumor marker (10/24/2018 11:57 AM MOTOR TUNE UP SPECIALIST) Only the most recent of 3 results within the time period is included. Alpha-Fetoprotein 2.7 <10.0 ng/mL [facility] Specimen Blood Performing Organization Address [facility] Hospitalcode Phone Number [place] [address] [place] [address] * Bilirubin, direct (10/24/2018 11:57 AM MOTOR TUNE UP SPECIALIST) Only the most recent of 6 results within the time period is included. Bilirubin, Direct 2.4 (H) 0.1 - 0.5 mg/dL [facility] Specimen Blood Performing Organization Address City/State/Zipcode Phone Number [facility] [address] [place] [address] [facility] * Comprehensive metabolic panel (10/24/2018 11:57 AM MOTOR TUNE UP SPECIALIST) Only the most recent of 6 results within the time period is included. Protein, Total 7.1 6.0 - 8.3 gm/dL [facility] Albumin 3.0 (L) 3.5 - 5.0 g/dL [facility] Alkaline Phosphatase 154 (H) 40 - 150 U/L [facility] Total Bilirubin 8.7 (H) 0.2 - 1.2 mg/dL [facility] Sodium 140 136 - 145 meq/L [facility] Potassium 4.3 3.5 - 5.1 meq/L [facility] Chloride 108 (H) 98 - 107 meq/L [facility] CO2 26 22 - 29 meq/L [facility] BUN 9 7 - 21 mg/dL [facility] Creatinine 0.54 (L) 0.57 - 1.25 mg/dL [facility] Glucose 98 70 - 105 mg/dL [facility] Calcium 9.1 8.4 - 10.2 mg/dL [facility] AST 63 (H) 5 - 34 U/L [facility] ALT 31 6 - 55 U/L [facility] EGFR 119Comment: ESTIMATED GFR IS mL/min/1.73 sq m [facility] NOT ACCURATE CREATININE [facility] CLEARANCE IN PREDICTING GLOMERULAR FILTRATION RATE. ESTIMATED GFR IS NOT APPLICABLE FOR DIALYSIS PATIENTS. Specimen Blood Narrative Performed At Specimen moderately icteric [facility] Performing Organization Address [facility]/Zipcode Phone Number [facility] [address] [place] [address] [facility] * CBC with platelet count + automated diff (10/03/2018 11:09 AM MOTOR TUNE UP SPECIALIST) Only the most recent of 2 results [...] Performing Organization Information: Site ID: [id number] Name: [facility] Address: [address] [place] [id number] Director: Li Alvarenga Performing Organization Address City/State/Zipcode Phone Number [facility] [address] [place] [address] [facility] * POC-Creatinine (09/05/2018 12:48 PM MOTOR TUNE UP SPECIALIST) Only the most recent of 2 results within the time period is included. POC-Creatinine 0.4 (L)Comment: TESTED AT 0.6 - 1.3 mg/dL [facility] [address] [facility] [id number] POC-EGFR 168 mL/min/1.73M2 [facility] Specimen Blood Performing Organization Address City/State/Zipcode Phone Number [facility] [address] [place] [address] [facility] * XR dxa bone density study (07/25/2018 12:59 PM MOTOR TUNE UP SPECIALIST) Specimen Narrative Performed At FINAL REPORT [place] [facility] Bone mineral density study 07/25/2018 at 1259. CLINICAL INDICATION: Osteoporosis. COMPARISON: None available FINDINGS: Evaluation of the left and right femoral necks and lumbar spine was performed utilizing a Vaxart Advance bone densitometer. The left femoral neck [...] MD Report Verified Date/Time:07/25/2018 15:48:51 Reading Location: [facility] Radiology Reading Room Procedure Note Interface, External Ris In - 07/25/2018 3:51 PM MOTOR TUNE UP SPECIALIST FINAL REPORT Bone mineral density study 07/25/2018 at 1259. CLINICAL INDICATION: Osteoporosis. COMPARISON: None available FINDINGS: Evaluation of the left and right femoral necks and lumbar spine was performed utilizing a Vaxart Advance bone densitometer. The left femoral neck [...] Report Verified Date/Time: 07/25/2018 15:48:51 Reading Location: [facility] Radiology Reading Room Performing Organization Address City/State/Zipcode Phone Number [facility] * ED ECG Interpretation (05/23/2018 1:18 PM CDT) Narrative Performed At Roenn Bunch MD 05/23/20181:18 PM ECG/EKG Interpretation Date/Time: [...] CDT) Specimen Narrative Performed At FINAL REPORT [place] Chest one view INDICATION: Shortness of breath COMPARISON: 11/05/2016 IMPRESSION: Previously seen right upper lobe nodularity is not apparent on this study. There are coarsened interstitial markings. No focal consolidation, edema, pleural effusion, or pneumothorax is seen. The cardiomediastinal silhouette is unremarkable. The bones appear intact. Signed: Eric Velazquez MD Report Verified Date/Time:05/23/2018 12:16:57 Reading Location: [facility] Radiology Reading Room Procedure Note Interface, External [...] Report Verified Date/Time: 05/23/2018 12:16:57 Reading Location: [facility] Radiology Reading Room Performing Organization Address City/State/Zipcode Phone Number [facility] * Troponin I (05/23/2018 11:17 AM CDT) Troponin I <0.01 0.00 - 0.03 ng/mL [facility] Specimen Blood Narrative Performed At Troponin I (TnI) levels must be interpreted in the context of the presenting [facility] symptoms and the clinical findings. Elevated TnI levels indicate myocardial [facility] damage, but are not specific for ischemic heart disease. Elevated TnI levels are seen in patients with other cardiac conditions (including myocarditis and congestive heart failure), and slight TnI elevations occur in patients with other conditions, including sepsis, renal failure, acidosis, acute neurological disease, and persistent tachyarrhythmia. Performing Organization Address City/State/Zipcode Phone Number [place] [phone] [place] [address] [facility] * Creatine Kinase (CK), Total and MB (05/23/2018 11:17 AM CDT) Total CK 115 29 - 200 U/L [facility] CK-MB 1.5 0.0 - 6.6 ng/mL [facility] MB Relative Index 1.3 % [facility] Specimen Blood Narrative Performed At CK-MB Reference Range: [facility] <6.7Normal [facility] 6.7-10.0Borderline >10.0 Abnormal Performing Organization Address City/State/Zipcode Phone Number [address] [address] [facility] * ECG 12 lead (05/23/2018 10:42 AM CDT) Specimen Narrative Performed At Ventricular Rate 74 BPM GE MUSE Atrial Rate 74 BPM P-R Interval 154 ms QRS Duration 92 ms Q-T Interval 424 ms QTC Calculation(Bazett) 470 ms P [place] 45 degrees R [place] -20 degrees T [place] 68 degrees Normal sinus rhythm Possible Left atrial enlargement Left ventricular hypertrophy Abnormal ECG Confirmed by MD Zabala Mahboob ([id number]) on 05/23/2018 10:07:49 PM Procedure Note Interface, External Ris In - 05/23/2018 10:07 PM CDT Ventricular Rate 74 BPM Atrial Rate 74 BPM P-R Interval 154 ms QRS Duration 92 ms Q-T Interval 424 ms QTC Calculation(Bazett) 470 ms P [place] 45 degrees R [place] -20 degrees T [place] 68 degrees Normal sinus rhythm Possible Left atrial enlargement Left ventricular hypertrophy Abnormal ECG Confirmed by MD Zabala Mahboob ([id number]) on 05/23/2018 10:07:49 PM Performing Organization Address City/State/Zipcode Phone Number [facility] M[facility] after 01/09/2018 Insurance Payer Benefit Subscriber ID Type Phone Address Plan / Group BLUE CROSS/BLUE SHIELD [facility] OS xxxxxxxxxxxxxxx PPO [phone] [address] POS/PPO/[place] [address] O CARE IMPROVEMENT MEDICARE CARE xxxxxxxxx MGD CARE IMPROVEMEN T PLUS Advance Directives For more information, please contact: [address] [address] Date Inactivated Comments Code Status Date Activated 12/11/2018 5:15 PM Full Code 11/29/2018 3:39 AM This code status was determined by: Patient 04/27/2016 4:08 PM Full Code 04/27/2016 6:18 AM This code status was determined by: Patient
[2019-01-10 19:50] VITALS: BP 97/47
[2019-01-10 19:51] VITALS: BP 99/76
[2019-01-10 19:55] VITALS: BP 99/76
[2019-01-10] MEDS ORDERED: NON-FORMULARY MEDICATION (Trazodone Hcl 100 MG) PO SCH (21:00)
[2019-01-10] MEDS: TRAZODONE HCL 50 MG TAB PO SCH (21:46)
[2019-01-10] MEDS: HYDROMORPHONE 2MG/ML 2 MG/ML ML IV PRN (23:11)
[2019-01-10] MEDS: ONDANSETRON HCL INJ 2MG/ML 2ML 2 MG/ML VIAL IV PRN (23:12)
--- NOTE | 2019-01-10 23:46 | NUR ---
Continuity of care received. Rounded on pt and pt resting in bed and in no apparent distress. All safety measures ensured, bed alarm on, and pt call garces near.
[2019-01-11] VITALS (7 sets, daily range): BP systolic 93–126; BP diastolic 51–59
[2019-01-11 05:35] LABS: BASOPHILS % 0.2 % (0.0-1.0); EOSINOPHILS % 0.5 % (0.0-6.0); HEMATOCRIT 26.1 % (34.2-44.1); HEMOGLOBIN 8.6 g/dL (12.0-16.0); LYMPHOCYTES # (AUTO) 0.6 (1.0-3.2); LYMPHOCYTES % 14.1 % (18.0-39.1); MEAN CORPUSCULAR HEMOGLOBIN 36.6 pg (28-32); MEAN CORPUSCULAR VOLUME 111.1 fL (81-99); MONOCYTES # (AUTO) 0.4 (0.2-0.8); MONOCYTES % 10.1 % (4.4-11.3); NEUTROPHILS # (AUTO) 3.2 (2.1-6.9); NEUTROPHILS % 74.4 % (38.7-80.0); RED BLOOD COUNT 2.35 x10e6/uL (3.6-5.1); RED CELL DISTRIBUTION WIDTH 19.8 % (11.7-14.4)
[2019-01-11 05:42] LABS: PLATELET COUNT 22 x10e3/uL (140-360)
[2019-01-11 05:48] LABS: ALANINE AMINOTRANSFERASE 24 IU/L (0-55); ALBUMIN 2.1 g/dL (3.5-5.0); ALBUMIN/GLOBULIN RATIO 0.6 (0.8-2.0); ALKALINE PHOSPHATASE 88 IU/L (40-150); ANION GAP 8.1 mmol/L (8-16); BLOOD UREA NITROGEN 7 mg/dL (7-26); BUN/CREATININE RATIO 10 (6-25); CALCIUM 8.1 mg/dL (8.4-10.2); CARBON DIOXIDE 25 mmol/L (22-29); CHLORIDE 103 mmol/L (98-107); CREATININE, SERUM 0.67 mg/dL (0.57-1.11); EST GLOMERULAR FILTRATION RATE > 60 ML/MIN (60-); GLUCOSE 160 mg/dL (74-118); POTASSIUM 4.1 mmol/L (3.5-5.1); SODIUM 132 mmol/L (136-145)
--- NOTE | 2019-01-11 06:23 | NUR ---
Call placed to Dr. Martel to report labs
--- NOTE | 2019-01-11 06:46 | NUR ---
Pt sleeping and in no apparent distress. All safety measures ensured, call garces on, and pt call garces near. Pt encouraged to use call garces for assistance.
--- NOTE | 2019-01-11 07:03 | NUR ---
Walking rounds done. Patient is awake and alertx3, Polish speaking only. POC discussed in Polish. Patient is aware she is NPO for planned Paracentesis. She was instructed to call for assistance as needed and verbalized understanding. Bed in lowest position, locked and call garces within reach.
--- NOTE | 2019-01-11 07:55 | NUR ---
Dr. Seals notified of 23 platelet count. No new orders.
--- NOTE | 2019-01-11 08:07 | NUR ---
Dr. Rodarte notified of 23 platelet count. No new order at this time.
--- NOTE | 2019-01-11 09:25 | NUR ---
Dr. Martel paged to notify IR MD will not be preforming Paracentesis because patient does not have enough fluid.
[2019-01-11] MEDS ORDERED: FUROSEMIDE INJ 10 MG/ML 4 ML VIAL IV NR (10:15)
--- NOTE | 2019-01-11 10:20 | NUR ---
Dr. Martel at the bedside making rounds.
--- NOTE | 2019-01-11 10:20 | Diagnostic Imaging Report ---
Exam: Limited four-quadrant abdominal ultrasound to evaluate for ascites. History: Abdominal distention Comparison: 01/01/[address] Findings: Scanning within all 4 quadrants of the abdomen was accomplished. There is a minimal amount of abdominal ascites. There is an insufficient amount to safely perform a paracentesis. Impression: Minimal amount of abdominal ascites. Signed by: Dr. Abdulaziz Hannon DO on 01/11/2019 10:17 AM
[2019-01-11] MEDS: FUROSEMIDE 40 MG TAB PO SCH (10:30)
[2019-01-11 10:51] LABS: ANISOCYTOSIS MODERATE; BAND NEUTROPHILS % (MANUAL) 1 %; BLAST CELLS % MANUAL 1; HYPOCHROMASIA MODERATE; LYMPHOCYTES % (MANUAL) 24 % (19-48); MONOCYTES % (MANUAL) 9 % (3.4-9.0); NEUTROPHILS % (MANUAL) 65 % (40-74); PLATELET ESTIMATE MARKEDLY DECREASED; RBC MORPHOLOGY COMMENT ABNORMAL
[2019-01-11 10:52] LABS: PLATELET MORPHOLOGY COMMENT NORMAL
[2019-01-11] MEDS: LACTULOSE SYRUP 20 GM/30 ML UDC PO SCH ×2 (13:06→16:23)
[2019-01-11] MEDS: PANTOPRAZOLE SOD 40 MG TABEC PO SCH (13:06)
[2019-01-11] MEDS: SPIRONOLACTONE 25 MG TAB PO SCH (13:06)
[2019-01-11] MEDS: PROPRANOLOL HCL 10 MG TAB PO SCH (13:06)
--- NOTE | 2019-01-11 13:10 | NUR ---
RCD PT FROM OBSERVATION BY WHEEL CHAIR PT IS ALERT AND ORIENTED VITALS CHECKED PT RESTING ON BED BED LOW AND LOCKED CALL LIGHT IN REACH
[2019-01-11] MEDS ORDERED: LACTULOSE SYRUP 20 GM/30 ML UDC PO SCH (15:00)
--- NOTE | 2019-01-11 15:05 | Diagnostic Imaging Report ---
Abdomen, 2 views. History: Abdominal pain. Findings: Mildly dilated air-filled small bowel is noted in the left upper quadrant. Scattered air-fluid levels are noted. There is paucity of air in the colon. There is no evidence of free air. There are no masses or abnormal calcifications. The osseous structures are intact. IMPRESSION: Findings concerning for small bowel obstruction. Signed by: Luis Daniel Cordon on 01/11/2019 3:02 PM
[2019-01-11] MEDS: RIFAXIMIN 550 MG TABLET PO SCH (16:23)
[2019-01-11] MEDS: HYDROMORPHONE 2MG/ML 2 MG/ML ML IV PRN ×2 (17:47→23:48)
--- NOTE | 2019-01-11 18:20 | NUR ---
PT C/O ABDOMINAL PAIN CHECKED THE PATIENT PTS ABDOMEN DISTENDED AND HAD DIARRHEA FOR 4 TIMES ,CHECKED ABDOMINAL XRAY REPORT IT SHOWS SMALL BOWEL OBSTRUCTION
--- NOTE | 2019-01-11 18:23 | NUR ---
PAGED DR Margaret BURDEN TO NOTIFY THE ABDOMINAL XRAY REPORT IT SHOWS SMALL BOWEL OBSTRUCTION
--- NOTE | 2019-01-11 18:31 | NUR ---
DR Margaret BURDEN RETURNED THE CALL HE SAID NOTIFY DR GRANT
--- NOTE | 2019-01-11 18:36 | NUR ---
NOTIFIED DR GRANT HE CAME TO SEE THE PATIENT
--- NOTE | 2019-01-11 18:46 | History and Physical ---
CHIEF COMPLAINT: She is a 53-year-old female patient, presented to the emergency room. The patient is having frequent ER visits. The patient was recently discharged and came back to the emergency room with a complaint of shortness of breath, generalized swelling, abdominal swelling, and leg swelling. HISTORY OF PRESENT ILLNESS: Ms. Nicolás Greene is a 53-year-old female patient, who has end-stage liver disease, who is needing liver transplant. She is on a liver transplant list and the patient is having recurrent different problems related to liver issues. The patient stated that although she is taking her diuretic, apparently the patient was having severe swelling in the leg and abdomen and the patient was having difficulty breathing. The patient was evaluated in the emergency room and the emergency room physician thought that the patient does need paracentesis to improve her symptoms and for that reason, the patient was admitted by the emergency room doctor. REVIEW OF SYSTEMS: Detailed review of system examination was done and the patient was found to have severe shortness of breath, abdominal swelling, and leg swelling. PAST MEDICAL HISTORY: End-stage liver disease, thrombocytopenia, and hepatoma. PAST SURGICAL HISTORY: and recurrent paracentesis. ALLERGIES: IODINE. SOCIAL HISTORY: Denies smoking. Denies using alcohol. FAMILY HISTORY: Hypertension. PHYSICAL EXAMINATION: GENERAL: She is a middle-aged female patient. She has generalized anasarca as she has abdomen distended. VITAL SIGNS: Temperature 99, pulse rate 80, respiration rate 24, and blood pressure 110/70. HEENT: Generalized anasarca, edema present. JVD present. LUNGS: Basilar rales present. HEART: S1 and S2, regular. Systolic murmur present. ABDOMEN: Distended. Ascites present. NEUROLOGIC: No deficit. EXTREMITIES: +4 pitting edema present. ADMITTING IMPRESSION/DIAGNOSES: The patient has generalized anasarca, ascites, abdominal distention, portal hypertension, and end-stage liver disease. PLAN: The patient will be admitted with the above diagnoses. We will consult IR to do paracentesis and obtain Hematology consult, Dr. Richmond and I have discussed with him and he is going to plan to [facility]. I think that is the most appropriate step that this patient does need tertiary level of care. MD RADHA Eugene/PIETERL /[id number]
--- NOTE | 2019-01-11 18:55 | NUR ---
PT IS ALLERGIC TO IODINE A/C TO RADIOLOGY PAGED DR GRANT TO NOTIFY THAT
--- NOTE | 2019-01-11 19:01 | NUR ---
PT RESTING ON BED BED SIDE REPORT GIVEN TO ONCOMING NURSE
[2019-01-11] MEDS ORDERED: PREDNISONE 20 MG TAB PO ONE (22:00)
[2019-01-11] MEDS: TRAZODONE HCL 50 MG TAB PO SCH (22:12)
[2019-01-12] VITALS (7 sets, daily range): BP systolic 100–103; BP diastolic 52–58
--- NOTE | 2019-01-12 00:47 | Consultation ---
DATE OF CONSULTATION: 01/11/2019 HISTORY OF PRESENT ILLNESS: This is a 53-year-old, very well known to me with history of cirrhosis with possible hepatocellular carcinoma, portal hypertension, pancytopenia, who apparently came back to the hospital because of abdominal pain, which had been postprandial along with some abdominal distention. Her workup revealed that she may have small bowel obstruction. Her ultrasound only showed minimal ascites. Again, labs showing she has pancytopenia and the bilirubin was up to 7, which is actually better as compared to 7.5 today. MEDICAL PROBLEMS: Again, significant for history of cirrhosis with HCC, portal hypertension, pancytopenia. ALLERGIES: NONE. SOCIAL HISTORY: No alcohol use. FAMILY HISTORY: Noncontributory. REVIEW OF SYSTEMS: At this point, denies any chest pain. Denies any shortness of breath. Denies any dysphagia or odynophagia. Denies any dysuria, hematuria, or any kind of syncopal episode. PHYSICAL EXAMINATION: GENERAL: The patient is awake, alert, appears to be stable. VITAL SIGNS: Afebrile currently. HEAD, EYES, EARS, NOSE, AND THROAT: Normocephalic, atraumatic. Sclerae are mildly icteric. NECK: Supple. HEART: Regular. LUNGS: Clear. ABDOMEN: Soft, distended, and diffusely tender. There is no rebound or mass. EXTREMITIES: No cyanosis. No clubbing. LAB VALUES: Today, sodium 132, BUN and creatinine are normal. Bilirubin of 5.5, AST of 38. WBC of 4.26, hemoglobin of 8.6, hematocrit of 26, platelet count of 22,000. IMPRESSION: 1. Abdominal pain, possibly small bowel obstruction. 2. Cirrhosis with portal hepatitis. 3. Pancytopenia. RECOMMENDATIONS: Recommended to keep n.p.o. for now. We will obtain CAT scan of abdomen and pelvis to rule out possibility of small bowel obstruction. The patient may need to have NG tube depending on the results. Jemal Hoffman MD DHD/MODL /[id number] cc: MD Jemal Eugene MD
[2019-01-12 05:15] LABS: BASOPHILS % 0.3 % (0.0-1.0); EOSINOPHILS % 0.6 % (0.0-6.0); HEMOGLOBIN 9.7 g/dL (12.0-16.0); LYMPHOCYTES # (AUTO) 0.4 (1.0-3.2); LYMPHOCYTES % 10.8 % (18.0-39.1); MEAN CORPUSCULAR HEMOGLOBIN 35.7 pg (28-32); MEAN CORPUSCULAR HGB CONC 32.3 g/dL (31-35); MEAN CORPUSCULAR VOLUME 110.3 fL (81-99); MONOCYTES # (AUTO) 0.2 (0.2-0.8); MONOCYTES % 5.2 % (4.4-11.3); NEUTROPHILS % 82.3 % (38.7-80.0); RED BLOOD COUNT 2.72 x10e6/uL (3.6-5.1); RED CELL DISTRIBUTION WIDTH 19.7 % (11.7-14.4)
[2019-01-12 05:24] LABS: PLATELET COUNT 21 x10e3/uL (140-360)
[2019-01-12 05:36] LABS: ALANINE AMINOTRANSFERASE 25 IU/L (0-55); ALBUMIN 2.4 g/dL (3.5-5.0); ALBUMIN/GLOBULIN RATIO 0.6 (0.8-2.0); ALKALINE PHOSPHATASE 107 IU/L (40-150); ANION GAP 8.6 mmol/L (8-16); BLOOD UREA NITROGEN 10 mg/dL (7-26); BUN/CREATININE RATIO 14 (6-25); CALCIUM 8.4 mg/dL (8.4-10.2); CARBON DIOXIDE 26 mmol/L (22-29); CHLORIDE 103 mmol/L (98-107); EST GLOMERULAR FILTRATION RATE > 60 ML/MIN (60-); GLUCOSE 145 mg/dL (74-118); POTASSIUM 4.6 mmol/L (3.5-5.1); SODIUM 133 mmol/L (136-145)
[2019-01-12] MEDS: HYDROMORPHONE 2MG/ML 2 MG/ML ML IV PRN ×3 (06:00→18:25)
[2019-01-12] MEDS: LACTULOSE SYRUP 20 GM/30 ML UDC PO SCH ×3 (06:00→17:10)
[2019-01-12] MEDS: DEXTROSE 5%/0.9% SOD CHL 1,000 ML IV SCH ×2 (06:26→18:16)
--- NOTE | 2019-01-12 07:48 | Consultation ---
DATE OF CONSULTATION: 01/11/2019 CONSULTING PHYSICIAN: Luis Angel Rodarte MD, Hematology-Oncology Service. REASON FOR CONSULTATION: Evaluation and management of patient with underlying liver cirrhosis, hepatoma and chronic cytopenia. HISTORY OF PRESENTING ILLNESS: Nicolás Greene is a very pleasant 53-year-old female, who is very well known to me as she is my clinic patient and has a complicated past medical history including known history of liver cirrhosis, severe thrombocytopenia with baseline count around 20,000, hepatosplenomegaly, gastroparesis, who was presently in consideration for liver transplantation. She has been following at [facility] with Dr. Ramos. Recently, she was hospitalized due to severe thrombocytopenia, requiring steroid with IVIG without much response. She was also transferred to [facility] and underwent treatment with Nplate with good response. During workup, she was also noted to have hepatoma for which she is presently undergoing workup. She was discharged from [facility] a few days ago and now readmitted due to abdominal distention and pain. She has received Nplate treatment yesterday at my office. Now Hematology-Oncology has been consulted to assist with the management. Presently, the patient is sitting comfortably, however, is having significant abdominal distention and pain. She is also complaining of lower extremity swelling and shortness of breath. PAST MEDICAL HISTORY: 1. End-stage liver disease, presently on transplant list. 2. 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 3. Recurrent ascites requiring paracentesis. 4. Gastroparesis. 5. Hepatosplenomegaly. 6. Hepatocellular carcinoma. PAST SURGICAL HISTORY: 1. Cardiac catheterization. 2. Multiple paracentesis. 3. Multiple EGD and colonoscopy. FAMILY HISTORY: Positive for diabetes and hypertension. SOCIAL HISTORY: Denies history of alcohol use, illicit drug use, or smoking. ALLERGIES: TO IODINE. CURRENT MEDICATIONS: Reviewed as per electronic medical record. REVIEW OF SYSTEMS: A 14-point review of systems negative except as mentioned per history of present illness. PHYSICAL EXAMINATION: VITAL SIGNS: Reviewed as per electronic medical record. HEENT: PERRLA. Extraocular movement are intact. Head is atraumatic, normocephalic. NECK: Supple. CVS: S1 and S2 audible. RESPIRATORY: Decreased bilateral air entry. ABDOMEN: Distended. Positive bowel sounds. EXTREMITIES: Positive edema. NEURO: The patient is alert, awake. LABORATORY DATA: White blood cell count of 4.2, hemoglobin 8.6, hematocrit . INR 2.3, BUN 7, creatinine 0.6. ASSESSMENT AND PLAN: Ms. Nicolás Greene is a very pleasant 53-year-old female, who is my clinic patient and has end-stage liver disease, presently on liver transplant list, recently diagnosed with hepatocellular cancer and chronic cytopenia specifically the thrombocytopenia due to underlying liver disease as well as from alloimmunization, now admitted again due to abdominal distention and pain. She has been started on Nplate therapy for thrombocytopenia. She does have a 1.8 cm solitary lesion in the liver concerning for hepatocellular cancer. She is scheduled to have outpatient PET-CT scan, however, she is not able to get it done due to frequent hospitalization. Now Hematology-Oncology has been consulted to assist with the management. I have reviewed the record and discussed at length with the patient about her condition and also further workup. At this point, treatment will be more supportive in nature from hematology standpoint. Her platelet count is in reasonable range, so we will monitor without any aggressive transfusion. Transfusion will be required only if the patient is bleeding or platelet count less than 15,000. She also has anemia, which appeared to be stable, we will closely monitor. Due to abdominal distention and pain, she is undergoing GI workup, specifically a CT scan of the abdomen. Most likely, she will require paracentesis. GI service is already on board. I will also try to communicate with Dr. Ramos at [facility] to provide update and see if she need to be transferred there. Thank you for the consult. I will continue to be available. Please call with questions. MD YANN Logan/HELENE /[id number]
[2019-01-12] MEDS: PANTOPRAZOLE SOD 40 MG TABEC PO SCH (08:50)
[2019-01-12] MEDS: SPIRONOLACTONE 25 MG TAB PO SCH (08:50)
[2019-01-12] MEDS: PROPRANOLOL HCL 10 MG TAB PO SCH (08:50)
[2019-01-12] MEDS: RIFAXIMIN 550 MG TABLET PO SCH ×2 (08:50→17:10)
[2019-01-12] MEDS: FUROSEMIDE 40 MG TAB PO SCH (08:50)
[2019-01-12] MEDS ORDERED: PROPRANOLOL HCL 10 MG TAB PO SCH (09:00)
[2019-01-12] MEDS ORDERED: PREDNISONE 20 MG TAB PO ONE (10:00)
[2019-01-12] MEDS ORDERED: DIATRIZOATE MEGL/DIATRIZOA SOD 30 ML BTL PO ONE (10:19)
[2019-01-12] MEDS ORDERED: DIPHENHYDRAMINE HCL 25 MG CAP PO ONE (11:00)
[2019-01-12] MEDS ORDERED: FAMOTIDINE 20 MG TAB PO ONE (11:00)
--- NOTE | 2019-01-12 12:23 | Diagnostic Imaging Report ---
EXAMINATION: CT of the abdomen and pelvis with contrast. TECHNIQUE: Spiral CT images of the abdomen and pelvis were performed from the lung bases to the lesser trochanters after the intravenous administration of 100 cc Isovue-370 and the oral administration of Gastrografin. Coronal and sagittal reformatted images were obtained. COMPARISON: CT abdomen and pelvis without contrast 01/01/2019 CLINICAL HISTORY:Concern for small bowel obstruction DISCUSSION: ABDOMEN/PELVIS: LOWER THORAX:Unremarkable. HEPATOBILIARY: Nodular contour with relative hypertrophy of the left lobe and caudate lobes compatible with cirrhosis. Dystrophic calcifications in the left lobe. Otherwise no focal hepatic lesion on this single phase examination. No intrahepatic biliary ductal dilatation. The gallbladder has been removed. SPLEEN: The spleen is enlarged without focal lesion. PANCREAS: No focal masses or ductal dilatation. ADRENALS: No adrenal nodules. KIDNEYS/URETERS: Punctate nonobstructing right lower pole, left upper and lower pole renal calculi are unchanged. No hydronephrosis or gross mass lesion. PELVIC ORGANS/BLADDER: Bladder is collapsed and poorly evaluated. PERITONEUM/RETROPERITONEUM: Small amount of perihepatic and perisplenic ascites tracking along the paracolic gutters and into the pelvis. No pneumoperitoneum. LYMPH NODES: No pelvic sidewall or retroperitoneal lymphadenopathy. Unchanged mildly prominent portacaval and mayra hepatis lymph nodes. VESSELS: Atherosclerotic calcification of the abdominal aorta without aneurysmal dilatation. Hepatic arterial anatomy appears conventional. Portal vein, splenic vein, and central superior mesenteric vein are patent with large esophageal varices again noted. GI TRACT: The large bowel shows no gross distention. Wall thickening of the ascending colon is less conspicuous on the current study. Small bowel wall thickening in the left upper quadrant, without dilatation or findings to suggest obstruction. BONES AND SOFT TISSUE: No osseous destructive lesions. Mild anasarca. No focal soft tissue abnormalities. IMPRESSION: No findings to suggest small bowel obstruction per clinical query. Ascending colon and left upper quadrant small bowel wall thickening likely relates to underlying portal hypertension; however, enterocolitis is an additional consideration in the appropriate clinical setting. Cirrhosis with portal hypertension evidenced by splenomegaly, ascites, and large esophageal varices. Signed by: Dr. Emmanuel Weeks M.D. on 01/12/2019 12:20 PM
--- NOTE | 2019-01-12 12:50 | NUR ---
Paged of CT results. Waiting for call back
[2019-01-12] MEDS ORDERED: SODIUM CHLORIDE 0.9% 50ML 50 ML ONE (13:00)
[2019-01-12] MEDS ORDERED: IOPAMIDOL 370 MG/ML 200 ML INFUS..BTL INJ ONE (13:00)
--- NOTE | 2019-01-12 13:30 | NUR ---
Repaged of CT results. Waiting for call back.
--- NOTE | 2019-01-12 15:27 | NUR ---
Dr. Martel V aware patient had CT of abdomen today. Orders received to cancel KUB.
--- NOTE | 2019-01-12 19:30 | NUR ---
Bedside report given to oncoming nurse. No s/s of acute distress noted. at bedside
--- NOTE | 2019-01-12 19:32 | NUR ---
Patient received sitting up in bed. AAO x 3. Family at bedside. Patient had complaints of upper abdominal pain (3/10). Respirations even and non-labored. IVF infusing at 75 cc/hr. Patient instructed to call for assistance when needed. Call light within reach.
[2019-01-12] MEDS: TRAZODONE HCL 50 MG TAB PO SCH (21:23)
[2019-01-13] VITALS (8 sets, daily range): BP systolic 102–112; BP diastolic 52–64
[2019-01-13] MEDS: HYDROMORPHONE 2MG/ML 2 MG/ML ML IV PRN ×3 (01:48→20:57)
[2019-01-13] MEDS: LACTULOSE SYRUP 20 GM/30 ML UDC PO SCH ×3 (05:16→16:29)
[2019-01-13] MEDS: DEXTROSE 5%/0.9% SOD CHL 1,000 ML IV SCH ×2 (05:21→22:00)
--- NOTE | 2019-01-13 07:12 | NUR ---
pt awake resp even and unlabored at this time no distress noted, pt has no c/o pain when asked , call light in reach.
--- NOTE | 2019-01-13 07:49 | NUR ---
Patient resting comfortably. Shift report given to oncoming nurse.
[2019-01-13] MEDS: PANTOPRAZOLE SOD 40 MG TABEC PO SCH (09:00)
[2019-01-13] MEDS: PROPRANOLOL HCL 10 MG TAB PO SCH (09:00)
[2019-01-13] MEDS: SPIRONOLACTONE 25 MG TAB PO SCH (09:00)
[2019-01-13] MEDS: RIFAXIMIN 550 MG TABLET PO SCH ×2 (09:00→16:29)
[2019-01-13] MEDS: FUROSEMIDE 40 MG TAB PO SCH (09:00)
[2019-01-13] MEDS: ONDANSETRON HCL INJ 2MG/ML 2ML 2 MG/ML VIAL IV PRN ×2 (12:55→21:03)
--- NOTE | 2019-01-13 16:00 | NUR ---
pt had shower at this time.
--- NOTE | 2019-01-13 19:34 | NUR ---
report given to oncoming nurse, for continued care.
--- NOTE | 2019-01-13 19:38 | NUR ---
Patient received lying in bed. AAO x 3. Patient had no complaints of pain. Respirations even and non-labored. Fall precautions implemented. Call light within reach.
[2019-01-13 20:01] LABS: BASOPHILS % 0.1 % (0.0-1.0); EOSINOPHILS % 0.3 % (0.0-6.0); HEMATOCRIT 34.7 % (34.2-44.1); LYMPHOCYTES # (AUTO) 0.7 (1.0-3.2); LYMPHOCYTES % 9.1 % (18.0-39.1); MEAN CORPUSCULAR HEMOGLOBIN 36.5 pg (28-32); MEAN CORPUSCULAR HGB CONC 31.7 g/dL (31-35); MEAN CORPUSCULAR VOLUME 115.3 fL (81-99); MONOCYTES # (AUTO) 0.5 (0.2-0.8); MONOCYTES % 6.3 % (4.4-11.3); NEUTROPHILS # (AUTO) 6.4 (2.1-6.9); NEUTROPHILS % 83.5 % (38.7-80.0); RED BLOOD COUNT 3.01 x10e6/uL (3.6-5.1)
[2019-01-13 20:05] LABS: PLATELET COUNT 42 x10e3/uL (140-360)
[2019-01-13 20:27] LABS: ALANINE AMINOTRANSFERASE 27 IU/L (0-55); ALBUMIN 2.5 g/dL (3.5-5.0); ALBUMIN/GLOBULIN RATIO 0.6 (0.8-2.0); ALKALINE PHOSPHATASE 94 IU/L (40-150); ANION GAP 13.1 mmol/L (8-16); BLOOD UREA NITROGEN 11 mg/dL (7-26); BUN/CREATININE RATIO 14 (6-25); CALCIUM 8.5 mg/dL (8.4-10.2); CARBON DIOXIDE 22 mmol/L (22-29); CHLORIDE 104 mmol/L (98-107); EST GLOMERULAR FILTRATION RATE > 60 ML/MIN (60-); GLUCOSE 144 mg/dL (74-118); POTASSIUM 4.1 mmol/L (3.5-5.1); SODIUM 135 mmol/L (136-145)
--- NOTE | 2019-01-13 21:04 | NUR ---
Dr. Hinds ( covering for Ivana Martel) paged for critical platelet results---42 and patient's complaints of "gas" . Awaiting call back.
[2019-01-13] MEDS: TRAZODONE HCL 50 MG TAB PO SCH (22:00)
[2019-01-14] VITALS (7 sets, daily range): BP systolic 100–113; BP diastolic 54–60
[2019-01-14 05:59] LABS: BASOPHILS % 0.2 % (0.0-1.0); EOSINOPHILS % 0.7 % (0.0-6.0); HEMATOCRIT 34.8 % (34.2-44.1); HEMOGLOBIN 10.9 g/dL (12.0-16.0); LYMPHOCYTES # (AUTO) 0.9 (1.0-3.2); LYMPHOCYTES % 14.8 % (18.0-39.1); MEAN CORPUSCULAR HEMOGLOBIN 35.7 pg (28-32); MEAN CORPUSCULAR HGB CONC 31.3 g/dL (31-35); MEAN CORPUSCULAR VOLUME 114.1 fL (81-99); MONOCYTES # (AUTO) 0.5 (0.2-0.8); MONOCYTES % 8.3 % (4.4-11.3); NEUTROPHILS # (AUTO) 4.4 (2.1-6.9); NEUTROPHILS % 75.3 % (38.7-80.0); RED BLOOD COUNT 3.05 x10e6/uL (3.6-5.1); RED CELL DISTRIBUTION WIDTH 19.8 % (11.7-14.4)
[2019-01-14] MEDS: LACTULOSE SYRUP 20 GM/30 ML UDC PO SCH ×3 (06:00→16:59)
[2019-01-14] MEDS: HYDROMORPHONE 2MG/ML 2 MG/ML ML IV PRN ×2 (06:01→17:00)
[2019-01-14 06:06] LABS: PLATELET COUNT 32 x10e3/uL (140-360)
--- NOTE | 2019-01-14 06:15 | NUR ---
hotel maintenance technician called with critical platelet result of 32. Dr. Ivana Martel paged. Awaiting call back.
[2019-01-14 06:36] LABS: ALANINE AMINOTRANSFERASE 25 IU/L (0-55); ALBUMIN 2.4 g/dL (3.5-5.0); ALBUMIN/GLOBULIN RATIO 0.6 (0.8-2.0); ALKALINE PHOSPHATASE 102 IU/L (40-150); ANION GAP 11.9 mmol/L (8-16); BLOOD UREA NITROGEN 11 mg/dL (7-26); BUN/CREATININE RATIO 14 (6-25); CALCIUM 8.4 mg/dL (8.4-10.2); CARBON DIOXIDE 23 mmol/L (22-29); CHLORIDE 105 mmol/L (98-107); CREATININE, SERUM 0.78 mg/dL (0.57-1.11); EST GLOMERULAR FILTRATION RATE > 60 ML/MIN (60-); GLUCOSE 89 mg/dL (74-118); POTASSIUM 3.9 mmol/L (3.5-5.1); SODIUM 136 mmol/L (136-145)
--- NOTE | 2019-01-14 07:11 | NUR ---
pt asleep upon rounds resp even and unlabored at this time, pt aroused to name and touch, call light in reach, will cont to monitor.
--- NOTE | 2019-01-14 07:14 | NUR ---
Walking rounds done. Shift report given to oncoming nurse about patient status.
[2019-01-14] MEDS: PANTOPRAZOLE SOD 40 MG TABEC PO SCH (07:30)
[2019-01-14 07:53] LABS: BILIRUBIN,DIRECT 3.2 mg/dL (0.0-0.5)
[2019-01-14] MEDS: FUROSEMIDE 40 MG TAB PO SCH (09:00)
[2019-01-14] MEDS: PROPRANOLOL HCL 10 MG TAB PO SCH ×2 (09:00→21:00)
[2019-01-14] MEDS: RIFAXIMIN 550 MG TABLET PO SCH ×2 (09:00→16:59)
[2019-01-14] MEDS: SPIRONOLACTONE 25 MG TAB PO SCH (09:00)
--- NOTE | 2019-01-14 10:30 | NUR ---
call to Dr Ivana Martel regarding pt weight status and platelet status. A/S
[2019-01-14 12:56] LABS: BAND NEUTROPHILS % (MANUAL) 3 %; LYMPHOCYTES % (MANUAL) 14 % (19-48); MONOCYTES % (MANUAL) 8 % (3.4-9.0); NEUTROPHILS % (MANUAL) 75 % (40-74); PLATELET ESTIMATE MARKEDLY DECREASED; PLATELET MORPHOLOGY COMMENT NORMAL
[2019-01-14] MEDS ORDERED: ONDANSETRON HCL 4 MG ORAL DISINTEGRATING TAB PO PRN (15:30)
--- NOTE | 2019-01-14 19:24 | NUR ---
Patient asleep in bed. Easily aroused by tactile stimuli. No acute distress noted. Call light within reach.
--- NOTE | 2019-01-14 19:30 | NUR ---
Dr. Ravi Jawed here to see patient. No new order received.
[2019-01-14] MEDS: FUROSEMIDE INJ 10 MG/ML 4 ML VIAL IV SCH (20:20)
[2019-01-14] MEDS: TRAZODONE HCL 50 MG TAB PO SCH (21:40)
[2019-01-15] VITALS (8 sets, daily range): BP systolic 91–112; BP diastolic 47–61
[2019-01-15] MEDS: HYDROMORPHONE 2MG/ML 2 MG/ML ML IV PRN (05:13)
[2019-01-15] MEDS: LACTULOSE SYRUP 20 GM/30 ML UDC PO SCH ×2 (05:15→21:40)
--- NOTE | 2019-01-15 06:42 | NUR ---
Shift report given to oncoming nurse.
--- NOTE | 2019-01-15 07:06 | NUR ---
pt awake lying supine in bed, resp even and unlabored at this time no distress noted, pt has no c/o pain when asked , call light in reach.
[2019-01-15] MEDS: PROPRANOLOL HCL 10 MG TAB PO SCH ×2 (08:57→21:00)
[2019-01-15] MEDS: FUROSEMIDE INJ 10 MG/ML 4 ML VIAL IV SCH ×2 (09:01→21:40)
[2019-01-15] MEDS: SPIRONOLACTONE 25 MG TAB PO SCH (09:01)
[2019-01-15] MEDS: RIFAXIMIN 550 MG TABLET PO SCH ×2 (09:01→16:39)
[2019-01-15] MEDS: PANTOPRAZOLE SOD 40 MG TABEC PO SCH (09:01)
[2019-01-15] MEDS: POTASSIUM CHLORIDE 20 MEQ TAB CR PO SCH (09:01)
[2019-01-15] MEDS: SIMETHICONE 80 MG CHEW PO PRN (16:39)
[2019-01-15] MEDS: TRAMADOL HCL 50 MG TAB PO PRN ×2 (16:39→22:43)
--- NOTE | 2019-01-15 19:28 | NUR ---
report given to oncoming nurse, for continued care.
[2019-01-15] MEDS: TRAZODONE HCL 50 MG TAB PO SCH (21:40)
[2019-01-16] VITALS (9 sets, daily range): BP systolic 97–127; BP diastolic 51–63
[2019-01-16] MEDS: LACTULOSE SYRUP 20 GM/30 ML UDC PO SCH ×3 (06:08→22:05)
[2019-01-16 06:12] LABS: BASOPHILS % 0.7 % (0.0-1.0); EOSINOPHILS % 1.3 % (0.0-6.0); HEMATOCRIT 29.6 % (34.2-44.1); HEMOGLOBIN 9.4 g/dL (12.0-16.0); LYMPHOCYTES # (AUTO) 0.4 (1.0-3.2); MEAN CORPUSCULAR HEMOGLOBIN 35.2 pg (28-32); MEAN CORPUSCULAR HGB CONC 31.8 g/dL (31-35); MEAN CORPUSCULAR VOLUME 110.9 fL (81-99); MONOCYTES # (AUTO) 0.4 (0.2-0.8); MONOCYTES % 13.4 % (4.4-11.3); NEUTROPHILS # (AUTO) 2.1 (2.1-6.9); NEUTROPHILS % 71.3 % (38.7-80.0); RED BLOOD COUNT 2.67 x10e6/uL (3.6-5.1); RED CELL DISTRIBUTION WIDTH 18.2 % (11.7-14.4)
[2019-01-16] MEDS: TRAMADOL HCL 50 MG TAB PO PRN ×2 (06:13→14:09)
[2019-01-16 06:14] LABS: INR 2.42
[2019-01-16 06:25] LABS: ALANINE AMINOTRANSFERASE 23 IU/L (0-55); ALBUMIN/GLOBULIN RATIO 0.6 (0.8-2.0); ALKALINE PHOSPHATASE 103 IU/L (40-150); ANION GAP 6.9 mmol/L (8-16); BLOOD UREA NITROGEN 12 mg/dL (7-26); BUN/CREATININE RATIO 19 (6-25); CALCIUM 8.1 mg/dL (8.4-10.2); CARBON DIOXIDE 33 mmol/L (22-29); CHLORIDE 98 mmol/L (98-107); CREATININE, SERUM 0.64 mg/dL (0.57-1.11); EST GLOMERULAR FILTRATION RATE > 60 ML/MIN (60-); GLUCOSE 107 mg/dL (74-118); POTASSIUM 3.9 mmol/L (3.5-5.1); SODIUM 134 mmol/L (136-145)
[2019-01-16 06:27] LABS: PLATELET COUNT 35 x10e3/uL (140-360)
--- NOTE | 2019-01-16 07:26 | NUR ---
REPORT GIVEN ONCOMING NURSE.
[2019-01-16] MEDS: PROPRANOLOL HCL 10 MG TAB PO SCH ×2 (09:00→20:40)
[2019-01-16] MEDS: PANTOPRAZOLE SOD 40 MG TABEC PO SCH (09:05)
[2019-01-16] MEDS: POTASSIUM CHLORIDE 20 MEQ TAB CR PO SCH (09:05)
[2019-01-16] MEDS: SPIRONOLACTONE 25 MG TAB PO SCH (09:05)
[2019-01-16] MEDS: FUROSEMIDE INJ 10 MG/ML 4 ML VIAL IV SCH ×2 (09:05→20:39)
[2019-01-16] MEDS: RIFAXIMIN 550 MG TABLET PO SCH ×2 (09:05→18:37)
[2019-01-16 09:09] LABS: EOSINOPHILS % (MANUAL) 1 % (0-7); LYMPHOCYTES % (MANUAL) 13 % (19-48); MONOCYTES % (MANUAL) 9 % (3.4-9.0); NEUTROPHILS % (MANUAL) 77 % (40-74); RBC MORPHOLOGY COMMENT NORMAL
[2019-01-16 09:10] LABS: ANISOCYTOSIS SLIGHT; HYPOCHROMASIA SLIGHT; PLATELET ESTIMATE MARKEDLY DECREASED
[2019-01-16] MEDS ORDERED: ALBUMIN 25% 25GM 100ML 0.25 GM/ML BTL IV ONE ×2 (09:30→09:45)
[2019-01-16] MEDS: SIMETHICONE 80 MG CHEW PO PRN (14:08)
--- NOTE | 2019-01-16 19:32 | NUR ---
report given to oncoming nurse, for continued care,
[2019-01-16] MEDS: TRAZODONE HCL 50 MG TAB PO SCH (20:39)
[2019-01-16] MEDS: HYDROMORPHONE 2MG/ML 2 MG/ML ML IV PRN (20:49)
[2019-01-17 05:21] VITALS: BP 100/55
[2019-01-17] MEDS: LACTULOSE SYRUP 20 GM/30 ML UDC PO SCH ×3 (05:22→21:15)
[2019-01-17 08:00] VITALS: BP 96/51
[2019-01-17] MEDS: PROPRANOLOL HCL 10 MG TAB PO SCH ×2 (09:00→21:00)
[2019-01-17 09:05] VITALS: BP 93/48
[2019-01-17] MEDS: RIFAXIMIN 550 MG TABLET PO SCH ×2 (09:05→17:33)
[2019-01-17] MEDS: POTASSIUM CHLORIDE 20 MEQ TAB CR PO SCH (09:05)
[2019-01-17] MEDS: SPIRONOLACTONE 25 MG TAB PO SCH (09:05)
[2019-01-17] MEDS: FUROSEMIDE INJ 10 MG/ML 4 ML VIAL IV SCH ×2 (09:05→21:00)
[2019-01-17] MEDS: PANTOPRAZOLE SOD 40 MG TABEC PO SCH (09:06)
[2019-01-17 11:31] VITALS: BP 91/44
[2019-01-17] MEDS: SIMETHICONE 80 MG CHEW PO PRN (11:58)
--- NOTE | 2019-01-17 14:30 | NUR ---
Visited pt twice but pt was on the phone. Will revisit tomorrow.
[2019-01-17 16:00] VITALS: BP 92/53
--- NOTE | 2019-01-17 18:44 | NUR ---
Oncoming nurse aware that discharge needs to be completed. Patient also waiting for her ride. Instructions passed on to the nightshift nurse. patient is in no distress.
--- NOTE | 2019-01-17 18:55 | NUR ---
Walking rounds performed. All questions answered. Hand-off to security shift supervisor. Patient is resting in bed with no signs of distress. Let the patient know that security shift supervisor will discharge patient. I gave her instructions regarding follow up. caustic cresylate shift superintendent to complete discharge.
[2019-01-17 19:59] VITALS: BP 100/54
[2019-01-17] MEDS: TRAZODONE HCL 50 MG TAB PO SCH (21:00)
--- NOTE | 2019-01-17 21:20 | NUR ---
Patient IV taken out. Patient signed discharge papers. Patient escorted via wheelchair and pt went home via private auto with . Pt aware about discharge instructions.
--- NOTE | 2019-01-18 15:34 | Discharge Summary ---
HISTORY: She is a 53-year-old female patient presented to the emergency room with a complaint of severe abdominal distention and shortness of breath. ADMITTING IMPRESSION AND DIAGNOSES: Generalized anasarca, ascites, abdominal distention secondary to partial small-bowel obstruction. Portal hypertension, end-stage renal disease, and hypertension and the patient has severe liver disease with thrombocytopenia and ITP. HOSPITAL COURSE SUMMARY: The patient was admitted with the above diagnoses. The patient has Interventional Radiology consultation was done for possible paracentesis. The patient did not have much fluid. GI consult was done, Dr. Hoffman. The patient has CT scan also was none and x-ray was done. Abdominal x-ray was done, which showed partial small-bowel obstruction. An abdominal ultrasound was done, which showed minimal ascites. The patient has abdomen and pelvic CAT scan was done and this showed ascending colon thickening and obstruction and cirrhosis with portal hypertension and splenomegaly and esophageal varices. The patient has a prolonged hospital course. The patient was kept n.p.o. and the patient has thrombocytopenia also, so Oncology consultation was also done. Plans were discussed about transferring the patient for a liver transplantation, but the patient improved. The patient was given lactulose and rifaximin. Diuretics were resumed, Lasix and spironolactone. Now upon stabilization, the patient will be discharged home and the patient do need very close followup with the liver transplant team for the patient's liver tumor with the possibility of the liver cancer, so the patient do need to see liver transplant team upon discharge. DISCHARGE MEDICATIONS: See from the list. The patient was supposed to be on aldactone, spironolactone, propranolol, Lasix, lactulose, and rifaximin. MD RADHA Eugene/MODL /[id number]
== END 2019-01-17 21:29 | disposition home or self-care (01) | DRG 432 ==
LOC: ER 13:43 → ERHOLD 18:41 → IMCU 19:42 → OBSVTOIN 01-11 10:12 → MED/SURG2 01-11 13:17
PROVIDERS: ADMIT Internal Medicine; ATTEND Internal Medicine
PROC: 0W9G3ZZ Drainage of Peritoneal Cavity, Percutaneous Approach (ICD-10-PCS; principal; 2019-01-11)
DX: K74.60 Unspecified cirrhosis of liver (principal); N18.6 End stage renal disease; K76.6 Portal hypertension; K56.609 Unspecified intestinal obstruction, unspecified as to partial versus complete obstruction; I12.0 Hypertensive chronic kidney disease with stage 5 chronic kidney disease or end stage renal disease; D69.59 Other secondary thrombocytopenia; Z99.2 Dependence on renal dialysis
CPT/HCPCS: 36415; 71045; 74019; 74177; 74470; 76705; 80053; 81001; 82140; 82248; 82550; 82553; 83690; 83735; 83880; 84100; 84484; 85025; 85610; 85730; 87086; 93005; 93971; 97139; 99284; G0378; J1940; J2405; J7042; J7512; P9047; Q9967

== ENCOUNTER 2019-01-29 06:18 | Emergency (ER) | payer OTHER ==
[~2019-01-29] VITALS: Ht 157.5 cm; Wt 88.5 kg
--- OUTSIDE RECORDS SUMMARY | 2019-01-29 06:20 | XMS REPORT | Clinical Summary ---
Author Author [facility] Organization [facility] Address Unknown Phone Unavailable Care Team Providers Care Oil Well Logger Name Role Phone Asked, No Pcp PCP [...] INFLUENZA VACCINE 03/22/2019 Results Not on fileafter 01/28/2018 Insurance Type Payer Benefit Subscriber ID Effective Phone Address Plan / Dates Group Transplant [employer] OPT[employer] TXP xxxxxxxxx 2016- CARE SANAZ 2008 Present HMO/PPO [facility] xxxxxxxxx 2016- THCARE Present CHOICE/CHO ICE + HMO UHC MEDICARE UNITED xxxxxxxxx 2016- HEALTHCARE Present MEDICARE Advance Directives Patient has advance care planning documents on file. For more information, luciano hallman contact: Edis Marc [address] [place] [address]
--- OUTSIDE RECORDS SUMMARY | 2019-01-29 06:21 | XMS REPORT | Clinical Summary ---
Author Author [facility] Address Unknown Phone Unavailable Care Team Providers Care Clamp Jig Assembler Name Role Phone Aren Martel Estefani [...] 9 by mouth 2 (two) times daily. Active lactulose (CHRONULAC) 20 3 (three) 0 gram/30 mL solution times daily. Active ursodiol (ACTIGALL) 300 daily. 0 mg capsule 05/23/2018 Discontinued furosemide (LASIX) 40 MG 40 mg daily . 0 06/25/201 tabletIndications: in the 6 morning 05/23/2018 Discontinued [...] MG tablet mouth 2 (two) times daily. 01/10/2019 furosemide (LASIX) 40 MG Take 1.5 45 tablet 3 tablet tablets (60 9 mg total) by mouth daily for 30 days. 12/19/2018 Discontinued levoFLOXacin (LEVAQUIN) Take 1 tablet [...] We will also need clearance from her EQUITY TRADER oncologist that she does not have any [...] abdominal pain. She met with a local millinery salesperson who diagnosed her with an "ovarian tumor" and has referred her to a gynecology oncologist. I have no seen documentation from her EQUITY TRADER oncologist but she states that the "ovarian [...] Encounters Care Team Description Date Type Specialty Monika Vanegas Appointment (Scheduled 01/25 meld lab appt @ [facility] & 02/20 clinic appt w/pts daughter. Itinerary mailed.) 01/24/2019 Telephone Transplant Hepatology Monika Vanegas Awaiting organ transplant status 01/24/2019 Orders Only Transplant Hepatology Monika Vanegas Appointment (Called to schedule meld labs due now & mri, echo w/[facility] followed by clinic appt due in February. Spoke w/pts daughter she said pt is currently admitted at [facility] she will have mom call once she is released.) 01/11/2019 Telephone Transplant Hepatology Cheli Potts RN Dyspnes; Change in status [...] pain; Coagulopathy (HCC); Hepatocellular carcinoma (HCC) 11/29/2018 [facility] General Internal Medicine - Encounter 12/11/2018 11/29/2018 Travel Marleny Pino RN Follow-up 11/28/2018 Telephone Transplant HepatMarleny Bradley RN Hematolgy Consult 11/20/2018 Telephone Transplant HepatTim Trujillo MD Khaderi, Saira Aijaz, MD Awaiting organ [...] said pt has been in hospital in [facility] since 10[facility]06 i transferred the daughter to speak [place]. Itinerary mailed. ) 10/12/2018 Telephone Transplant Hepatology Stella Hamilton RN 10/04/2018 Documentation Transplant Hepatology Monika Vanegas Appointment (Scheduled 11/30 mri & confirmed 10/24 clinic appt w/pt. Itinerary mailed.) 10/03/2018 Telephone Transplant HepatMonika Mg Appointment (LVM. Calling to schedule mri due [...] Marleny Pino RN Follow-up 03/29/2018 Telephone Transplant HepatMonika Mg Appointment (Scheduled 05/23 clinic & bmds w/pt. Itinerary mailed.) 03/29/2018 Telephone Transplant Hepatology Marleny Pino RN Osteopenia, unspecified location (Primary Dx) 03/28/2018 Orders Only Transplant HepatMarleny Bradley RN Follow-up 03/28/2018 Telephone Transplant Hepatology Marleny [...] 03/08 mri appt & 03/21 [facility]pt. Itinerary mailed. ) 02/17/2018 Telephone Transplant Hepatology Marleny Pino RN Awaiting organ transplant status (Primary Dx) 02/17/2018 Orders Only Transplant Hepatology after 01/28/2018 Family History Medical History Relation Name Comments [...] Body Mass Index 33.29 Plan of Treatment Care Team Description Date Type Specialty 02/20/2019 Follow-Up Transplant Hepatology Implants Device Identifier Shelf Expiration Date Model / Serial / Lot Implanted Type Area Manufactur er 02/18/2017 [id number] / / [id number] Device Clsr Angio-Seal Vip 6fr Cardi[employer]asc [facility] [id number] - [id number] ular MED:CARDIA Implanted: Qty: 1 on 04/27/2016 by Greta Phan MD Procedures Comments Procedure Name Priority Date/Time Associated Diagnosis COMPREHENSIVE METABOLIC Routine 01/25/2019 Awaiting organ transplant PANEL 9:32 AM CDT status CBC W/PLT COUNT & AUTO Routine 01/25/2019 Awaiting organ transplant DIFFERENTIAL 9:32 AM CDT status PROTHROMBIN TIME/INR Routine 01/25/2019 Awaiting organ transplant 9:32 AM CDT status BILIRUBIN, DIRECT Routine 01/25/2019 Awaiting organ transplant 9:32 AM CDT status RHYTHM STRIP - SCAN 12/12/2018 3:31 PM [...] 10/24/2018 Awaiting organ transplant DIFFERENTIAL 11:57 AM DRY CLEANING MANAGER status Cirrhosis of liver with ascites, unspecified hepatic cirrhosis type (HCC) PROTHROMBIN TIME/INR Routine 10/24/2018 Awaiting organ transplant 11:57 AM DRY CLEANING MANAGER status Cirrhosis of liver with ascites, unspecified hepatic cirrhosis type (HCC) COMPREHENSIVE METABOLIC Routine 10/24/2018 Awaiting organ transplant PANEL 11:57 AM DRY CLEANING MANAGER status Cirrhosis of liver with ascites, unspecified hepatic cirrhosis type (HCC) CBC W/PLT COUNT & AUTO Routine 10/24/2018 Awaiting organ transplant DIFFERENTIAL 11:57 AM DRY CLEANING MANAGER status Cirrhosis of liver with ascites, unspecified hepatic cirrhosis type (HCC) BILIRUBIN, DIRECT Routine 10/24/2018 Awaiting organ transplant 11:57 AM DRY CLEANING MANAGER status Cirrhosis of liver with ascites, unspecified hepatic cirrhosis type (HCC) ALPHA FETOPROTEIN (AFP), Routine 10/24/2018 Awaiting organ transplant TUMOR MARKER 11:57 AM DRY CLEANING MANAGER status Cancer screening Liver mass Cirrhosis of liver with ascites, unspecified hepatic cirrhosis type (HCC) BILIRUBIN, DIRECT Routine 10/03/2018 Awaiting organ transplant 11:09 AM DRY CLEANING MANAGER status PROTHROMBIN TIME/INR Routine 10/03/2018 Awaiting organ transplant 11:09 AM DRY CLEANING MANAGER status CBC W/PLT COUNT & AUTO Routine 10/03/2018 Awaiting organ transplant DIFFERENTIAL 11:09 AM DRY CLEANING MANAGER status COMPREHENSIVE METABOLIC Routine 10/03/2018 Awaiting organ transplant PANEL 11:09 AM DRY CLEANING MANAGER status (CELLAVISION MANUAL DIFF) Routine 09/05/2018 Awaiting organ transplant 1:31 PM DRY CLEANING MANAGER status CBC W/PLT COUNT & AUTO Routine 09/05/2018 Awaiting organ transplant DIFFERENTIAL 1:31 PM DRY CLEANING MANAGER status PROTHROMBIN TIME/INR Routine 09/05/2018 Awaiting organ transplant 1:31 PM DRY CLEANING MANAGER status COMPREHENSIVE METABOLIC Routine 09/05/2018 Awaiting organ transplant PANEL 1:31 PM DRY CLEANING MANAGER status CBC W/PLT COUNT & AUTO Routine 09/05/2018 Awaiting organ transplant DIFFERENTIAL 1:31 PM DRY CLEANING MANAGER status BILIRUBIN, DIRECT Routine 09/05/2018 Awaiting organ transplant 1:31 PM DRY CLEANING MANAGER status MR ABDOMEN WITH/WITHOUT Routine 09/05/2018 Awaiting organ transplant IV CONTRAST 1:21 PM DRY CLEANING MANAGER status Cirrhosis of liver without ascites, unspecified hepatic cirrhosis type (HCC) POCT-CREATININE Routine 09/05/2018 12:48 PM DRY CLEANING MANAGER XR DXA BONE DENSITY STUDY Routine 07/25/2018 Screening for 12:59 PM DRY CLEANING MANAGER endocrine/metabolic/immun ity disorders CBC W/PLT COUNT & AUTO Routine 07/25/2018 Awaiting organ transplant DIFFERENTIAL 12:20 PM DRY CLEANING MANAGER status CBC W/PLT COUNT & AUTO Routine 07/25/2018 Awaiting organ transplant DIFFERENTIAL 12:20 PM DRY CLEANING MANAGER status PROTHROMBIN TIME/INR Routine 07/25/2018 Awaiting organ transplant 12:19 PM DRY CLEANING MANAGER status COMPREHENSIVE METABOLIC Routine 07/25/2018 Awaiting organ transplant PANEL 12:19 PM DRY CLEANING MANAGER status BILIRUBIN, DIRECT Routine 07/25/2018 Awaiting organ transplant 12:19 PM DRY CLEANING MANAGER status ALPHA FETOPROTEIN (AFP), Routine 07/25/2018 Awaiting organ transplant TUMOR MARKER 12:19 PM DRY CLEANING MANAGER status Cancer screening ED ECG INTERPRETATION Routine [...] TUMOR MARKER 9:46 AM CDT status after 01/28/2018 Results * Prothrombin time/INR (01/25/2019 9:32 AM CDT) Only the most recent of 20 results within the time period is included. INR 1.5 (H) [facility] Comment: Reference Range 0.9-1.1 Moderate-intensity Warfarin Therapy 2.0-3.0 Higher-intensity Warfarin Therapy 3.0-4.0 PT 15.3 (H) 9.0 - 11.5 sec [facility] Comment: For more information on this test, go to: http://education.Aasonn.com/faq/UXO129 Specimen Blood Narrative Performed At FASTING:YES [facility] FASTING: YES Resulting Agency Comment Performing Organization Information: Site ID: [id number]: [facility] Address: [address] [place] [phone] Director: Li Alvarenga Performing Organization Address City/State/[facility] Cent[facility]ode Phone Number [facility] [address] [place] [address] [facility] * CBC with platelet count + automated diff (01/25/2019 9:32 AM CDT) Only the most recent of 3 results within the time period is included. WBC 3.7 (L) 3.8 - 10.8 Thousand/uL [facility] RBC 3.16 (L) 3.80 - 5.10 Million/uL [facility] Hemoglobin 11.2 (L) 11.7 - 15.5 g/dL [facility] Hematocrit 31.0 (L) 35.0 - 45.0 % [facility] MCV 98.1 80.0 - 100.0 fL [facility] MCH 35.4 (H) 27.0 - 33.0 pg [facility] MCHC 36.1 (H) 32.0 - 36.0 g/dL [facility] RDW 15.8 (H) 11.0 - 15.0 % [facility] Platelets 12 (L) 140 - 400 Thousand/uL [facility] Comment: The platelet count is decreased.The decreased numbers of platelets have been confirmed by slide examination and repeat analysis.Results should be correlated with other laboratory and clinical findings. Verified by repeat analysis. # Neutros 2,609 1,500 - 7,800 cells/uL [facility] # Lymphs 592 (L) 850 - 3,900 cells/uL [facility] # Monos 400 200 - 950 cells/uL [facility] # Eos 70 15 - 500 cells/uL [facility] # Baso 30 0 - 200 cells/uL [facility] % Neutros 70.5 % [facility] % Lymphs 16.0 % [facility] % Monos 10.8 % [facility] % Eos 1.9 % [facility] % Baso 0.8 % [facility] Comment(s) Comment: [facility] Review of peripheral smear confirms automated results. MPV TNP fL [facility] Comment: TEST(S) NOT PERFORMED: MPV * Test not performed.* Result not calculated because one or more required values exceed analytical limits. Specimen Blood Narrative Performed At FASTING:YES [facility] FASTING: YES Resulting Agency Comment Performing Organization Information: Site ID: [id number] Name: [facility] Address: [address] [place] [phone] Director: Li Alvarenga Performing Organization Address [facility] Phone Number [facility] [address] [place] [address] [facility] * Bilirubin, direct (01/25/2019 9:32 AM CDT) Only the most recent of 7 results within the time period is included. Bilirubin, Total 9.6 (H) 0.2 - 1.2 mg/dL [facility] Bilirubin, Direct 3.2 (H) < OR=0.2 mg/dL [facility] Bilirubin, Indirect 6.4 (H) 0.2 - 1.2 mg/dL (calc) [facility] Specimen Blood Narrative Performed At FASTING:YES [facility] FASTING: YES Resulting Agency Comment Performing Organization Information: Site ID: [id number] Name: [facility] Address: [address] [place] [phone] Director: Li Alvarenga Performing Organization Address [facility] Centerconh Phone Number [facility] [address] [place] [address] [facility] * Comprehensive metabolic panel (01/25/2019 9:32 AM CDT) Only the most recent of 7 results within the time period is included. Glucose 106 (H) 65 - 99 mg/dL [facility] Comment: Fasting reference interval For someone without known diabetes, a glucose value between 100 and 125 mg/dL is consistent with prediabetes and should be confirmed with a follow-up test. BUN 14 7 - 25 mg/dL [facility] Creatinine 0.49 (L) 0.50 - 1.05 mg/dL [facility] Comment: For patients >49 years of age, the reference limit for Creatinine is approximately 13% higher for people identified as -Finnish. eGFR If NonAfricn Am 113 > OR=60 mL/min/1.73m2 [facility] eGFR If Africn Am 131 > OR=60 mL/min/1.73m2 [facility] BUN/Creatinine Ratio 29 (H) 6 - 22 (calc) [facility] Sodium 132 (L) 135 - 146 mmol/L [facility] Potassium, Serum 4.5 3.5 - 5.3 mmol/L [facility] Chloride 101 98 - 110 mmol/L [facility] Carbon Dioxide, Total 28 20 - 32 mmol/L [facility] Calcium, Serum 8.6 8.6 - 10.4 mg/dL [facility] Protein, Total, Serum 6.8 6.1 - 8.1 g/dL [facility] Albumin 3.0 (L) 3.6 - 5.1 g/dL [facility] GLOBULIN ([facility]) 3.8 (H) 1.9 - 3.7 g/dL (calc) [facility] Albumin Globulin Ratio 0.8 (L) 1.0 - 2.5 (calc) [facility] Bilirubin, Total 9.6 (H) 0.2 - 1.2 mg/dL [facility] Alkaline Phosphatase, S 177 (H) 33 - 130 U/L [facility] AST (SGOT) 40 (H) 10 - 35 U/L [facility] ALT (SGPT) 22 6 - 29 U/L [facility] Specimen Blood Narrative Performed At FASTING:YES [facility] FASTING: YES Resulting Agency Comment Performing Organization Information: Site ID: [id number] Name: [facility] Address: [address] [place] [phone] Director: Li Alvarenga Performing Organization Address City/State/Zipcode Phone Number [facility] [address] [place] [address] [facility] * RHYTHM STRIP - SCAN (12/12/2018 3:31 [...] included. WBC 4.5 3.5 - 10.5 K/L [facility] RBC 2.52 (L) 3.93 - 5.22 M/L [facility] Hemoglobin 8.9 (L) 11.2 - 15.7 GM/DL [facility] Hematocrit 26.4 (L) 34.1 - 44.9 % [facility] MCV 104.8 (H) 79.4 - 94.[address] [facility] MCH 35.3 (H) 25.6 - 32.[address] [facility] MCHC 33.7 32.2 - 35.5 GM/DL [facility] RDW 15.9 (H) 11.7 - 14.4 % [facility] Platelets 28 (L) 150 - 450 K/CU MM [facility] MPV 11.2 9.4 - 12.[address] [facility] nRBC 0 0 - 0 /[address] [facility] % Neutros 64 % [facility] % Lymphs 19 % [facility] % Monos 15 % [facility] % Eos 1 % [facility] % Baso 1 % [facility] # Neutros 2.85 1.56 - 6.13 K/L [facility] # Lymphs 0.83 (L) 1.18 - 3.74 K/L [facility] # Monos 0.67 (H) 0.24 - 0.36 K/L [facility] # Eos 0.06 0.04 - 0.36 K/L [facility] # Baso 0.03 0.01 - 0.08 K/L [facility] Immature 1 0 - 1 % [facility] Granulocytes[facility] Specimen Blood Performing Organization Address [facility] Centercode Phone Number [address] [address] [facility] * Hepatic function panel (12/11/2018 6:41 AM CDT) Only the most recent of 14 results within the time period is included. Protein, Total 8.2 6.0 - 8.3 gm/dL [facility] Albumin 2.5 (L) 3.5 - 5.0 g/dL [facility] Total Bilirubin 7.7 (H) 0.2 - 1.2 mg/dL [facility] Bilirubin, Direct 2.0 (H) 0.1 - 0.5 mg/dL [facility] Alkaline Phosphatase 142 40 - 150 U/L [facility] AST 61 (H) 5 - 34 U/L [facility] ALT 35 6 - 55 U/L [facility] Specimen Blood Narrative Performed At Specimen moderately icteric [facility] Performing Organization Address City/[facility]/Zipcode Phone Number [place] [phone] [place] [address] [facility] * Basic metabolic panel (12/11/2018 6:41 AM CDT) Only the most recent of 14 results within the time period is included. Sodium 131 (L) 136 - 145 meq/L [facility] Potassium 4.5 3.5 - 5.1 meq/L [facility] Chloride 103 98 - 107 meq/L [facility] CO2 26 22 - 29 meq/L [facility] BUN 18 7 - 21 mg/dL [facility] Creatinine 0.62 0.57 - 1.25 mg/dL [facility] Glucose 106 (H) 70 - 105 mg/dL [facility] Calcium 8.5 8.4 - 10.2 mg/dL [facility] EGFR 101Comment: ESTIMATED GFR IS mL/min/1.73 sq m [facility] NOT ACCURATE CREATININE [facility] CLEARANCE IN PREDICTING GLOMERULAR FILTRATION RATE. ESTIMATED GFR IS NOT APPLICABLE FOR DIALYSIS PATIENTS. Specimen Blood Narrative Performed At Specimen moderately icteric [facility] Performing Organization Address City/[facility]/Zipcode Phone Number [place] [phone] [place] [address] [facility] * Prepare Leuko-Red PLT (12/10/2018 11:54 PM CDT) Only the most recent of 5 results within the time period is included. Unit ABO O Pos [place] UNIT NUMBER [id number] [place] Status TX_TIMEINCHART [place] Blood Bank Product PLATELETS [place] PRODUCT CODE [id number] [place] Specimen Blood Performing Organization Address City/[facility]/Zipcode Phone Number [place] * Manual Differential (12/10/2018 4:19 AM CDT) Only the most recent of 3 results within the time period is included. % Neutros 78 % [facility] % Lymphs 8 % [facility] % Monos 13 % [facility] % Eos 1 % [facility] # Neutros 2.89 1.56 - 6.13 K/ul [facility] # Lymphs 0.30 (L) 1.18 - 3.74 K/ul [facility] # Monos 0.48 (H) 0.24 - 0.36 K/uL [facility] # Eos 0.04 0.04 - 0.36 K/uL [facility] Total Counted [address] [facility] Smudge Cells Present [facility] Giant Platelet Present [facility] Anisocytosis 1+ few [facility] Poikilocytes 1+ few [facility] Platelet Conc Decreased [facility] Specimen Blood Narrative Performed At Received comment: [facility] User comments: [facility] Slide comments: Performing Organization Address City/[facility] Centercode Phone Number [address] * Transfuse Leuko-Red PLT (12/09/2018 4:57 PM CDT) Only the most recent of 10 results within the time period is included. * Type and screen, automated (12/09/2018 11:28 AM CDT) Only the most recent of 2 results within the time period is included. Ab Scrn NEGATIVE [facility] Specimen Blood Performing Organization Address City/[facility] Centercode Phone Number [place] [phone] [place] [address] * ABORH, manual (12/09/2018 11:28 AM CDT) Only the most recent of 2 results within the time period is included. ABO Grouping A [facility] Rh Factor POS [facility] Specimen Blood Performing Organization Address City/[facility]/Zipcode Phone Number [facility] [address] [place] [address] [facility] * Lipase (12/09/2018 4:11 AM CDT) Only the most recent of 2 results within the time period is included. Lipase 27 8 - 78 U/L [facility] Specimen Blood Narrative Performed At Specimen moderately icteric [facility] Performing Organization Address City/State/Zipcode Phone Number [facility] [address] [place] [address] [facility] * NM bone scan whole body (12/05/2018 3:31 PM CDT) Specimen Narrative Performed At FINAL REPORT [facility] PROCEDURE: BONE SCAN, WHOLE BODY CPT CODE:[id number] INDICATION:Liver lesion, exclude metastatic disease. On liver [...] chest CT 12/04/2018, abdomen MRI 11/30/2018. Signed: Davdi Candelario MD Report Verified Date/Time:12/05/2018 16:40:17 Reading Location: [address] Reading Room Procedure Note Interface, External Ris In - 12/05/2018 4:42 PM CDT FINAL REPORT PROCEDURE: BONE SCAN, WHOLE BODY CPT CODE: [id number] INDICATION: Liver lesion, exclude metastatic disease. On [...] Report Verified Date/Time: 12/05/2018 16:40:17 Reading Location: [address] [address] Reading Room Performing Organization Address City/State/Zipcode Phone Number [facility] * CT chest without IV contrast (12/04/2018 9:18 PM CDT) Specimen Narrative Performed At FINAL REPORT [employer] [facility] CT scan of the chest. CLINICAL HISTORY: [...] MD Report Verified Date/Time:12/04/2018 23:03:08 Reading Location: [facility] B1 [id number] Consult Reading Room Procedure Note Interface, External [...] Report Verified Date/Time: 12/04/2018 23:03:08 Reading Location: [address] Consult Reading Room Performing Organization Address City/[facility] Phone Number [facility] * Hepatitis B Panel (12/03/2018 12:10 PM CDT) Hep B Core Total Ab REACTIVE (A) Nonreactive [facility] Hep B S Ab 841.0 (H) <8.0 mIU/mL [facility] hepatitis B Surface Ag NON-REACTIVE Nonreactive [facility] Specimen Blood Performing Organization Address City/[facility]/Zipcode Phone Number [facility] [address] [place] [address] MEDICAL CENTER * Hepatitis C antibody (12/03/2018 12:10 PM CDT) Hepatitis C Ab NON-REACTIVE Nonreactive [facility] Specimen Blood Performing Organization Address City/[facility]/Zipcode Phone Number [address] [address] [facility] * Hepatitis B core antibody, total (12/03/2018 12:10 PM CDT) Hep B Core Total Ab REACTIVE (A) Nonreactive [facility] Specimen Blood Performing Organization Address City/[facility] Cent[facility]ode Phone Number [address] [address] [facility] * Iron, TIBC, % sat. (without ferritin) (12/03/2018 4:09 AM CDT) Iron 183.0 (H) 40.0 - 160.0 ug/dL [facility] TIBC 179 (L) 250 - 450 ug/dL [facility] Iron % Saturation 102 (H) 20 - 55 % [facility] Specimen Blood Performing Organization Address City/[facility] Centercode Phone Number [address] [address] [phone] [place] [address] * Folate, Serum (12/03/2018 4:09 AM CDT) Folate 11.8 >=7.0 ng/mL [facility] Specimen Blood Performing Organization Address City/[facility] Centercode Phone Number [address] [address] [phone] [place] [address] * Ferritin (12/03/2018 4:09 AM CDT) Ferritin 124 5 - 275 ng/mL [facility] Specimen Blood Performing Organization Address City/[facility]/[place] [address] [phone] [place] [address] * Vitamin B12 (12/03/2018 4:09 AM CDT) Vitamin B12 588 213 - 816 pg/mL [facility] Specimen Blood Performing Organization Address City/[facility]/Zipcode Phone Number [address] [address] [phone] [place] [address] * Reticulocyte count (12/02/2018 5:33 AM CDT) % Retic 5.0 (H) 0.5 - 1.7 % [facility] Specimen Blood Performing Organization Address City/[facility] Centercode Phone Number [address] [address] [phone] [place] [address] * Hepatitis B PCR, quantitative (12/01/2018 5:39 AM CDT) HBV PCR, Quantitative HBV DNA not detected HBV DNA not detected [facility] Specimen Blood Narrative Performed At This test uses a Real-Time Polymerase Chain Reaction (RT-PCR) methodology and [facility] was performed using KIP AmpliPrep/KIP TaqMan HBV Test, v2.0 ([employer] [facility] [employer] Reportable range for this assay is 20 - 170,000,000 IU per mL (1.30 - 8.23 Log IU/mL). Performing Organization Address [facility] Phone Number [address] * Hepatitis B core antibody, IgM (12/01/2018 5:39 AM CDT) Hep B C IgM NON-REACTIVE Nonreactive [facility] Specimen Blood Performing Organization Address City/[facility] [place] [address] [phone] [place] [address] * Phosphorus (12/01/2018 5:39 AM CDT) Only the most recent of 3 results within the time period is included. Phosphorus 4.1 2.3 - 4.7 mg/dL [facility] Specimen Blood Performing Organization Address [facility] Phone Number [address] [address] [phone] * Magnesium (12/01/2018 5:39 AM CDT) Only the most recent of 3 results within the time period is included. Magnesium 1.5 (L) 1.6 - 2.6 mg/dL [facility] Specimen Blood Performing Organization Address City/State/Zipcode Phone Number [facility] [address] [place] [address] MEDICAL [facility]ENTER * MR abdomen without & with IV contrast (11/30/2018 12:07 AM CDT) Only the most recent of 3 results within the time period is included. Specimen Narrative Performed At FINAL REPORT [facility] TECHNIQUE: MRI of the abdomen WITHOUT [...] MD Report Verified Date/Time:11/30/2018 07:35:42 Reading Location: [facility] Diagnostic Imaging Reading Room - [place] [address] Procedure Note Interface, External Ris In - [...] Report Verified Date/Time: 11/30/2018 07:35:42 Reading Location: [facility] Diagnostic Imaging Reading Room - [place] [address] Performing Organization Address City/State/Zipcode Phone Number [facility] * PT/aPTT (11/29/2018 9:15 AM CDT) Protime 21.6 (H) 11.7 - 14.[address] [facility] INR 1.8 <=5.[address] [facility] PTT 35.6 22.5 - 36.[address] [facility] Specimen Blood Narrative Performed At RECOMMENDED COUMADIN/WARFARIN INR THERAPY RANGES [facility] STANDARD DOSE: 2.0 - 3.0 Includes: PROPHYLAXIS for venous thrombosis, [facility] systemic embolization; TREATMENT for venous thrombosis and/or pulmonary embolus. HIGH RISK: Target INR is 2.5-3.5 for patients with mechanical heart valves. Performing Organization Address [facility] Phone Number [place] [phone] * Fibrinogen (11/29/2018 9:15 AM CDT) Fibrinogen 118 (L) 225 - 434 mg/dl [facility] Specimen Blood Performing Organization Address [facility] Phone Number [place] [phone] * D-dimer (11/29/2018 9:15 AM CDT) D-Dimer, Quant 13.03 (H) <0.50 MG/L FEU [facility] Specimen Blood Narrative Performed At Intended Use: The D-Dimer Assay can be used to aid in the diagnosis of Deep Vein [facility] Thrombosis (DVT) and Pulmonary Embolism Disease (PED). [facility] In patients with low pre-test probability, various studies concerning STA Liatest D-dimer test have reported that with a cutoff value of 0.50 MG/L FEU, the Negative Predictive Value (NPV) regarding the exclusion of thrombosis is within 95-100% range. Performing Organization Address [facility] Number [place] [phone] * Peripheral Blood Smear - Hold only (11/29/2018 5:07 AM CDT) Peripheral Smear Save SAVE [facility] Specimen Blood Performing Organization Address [facility] [place] [address] [phone] * Alpha fetoprotein (AFP), tumor marker (10/24/2018 11:57 AM [employer] CLEAN[employer] MA[employer]GER) Only the most recent of 3 results within the time period is included. Alpha-Fetoprotein 2.7 <10.0 ng/mL [facility] Specimen Blood Performing Organization Address City/State/Zipcode Phone Number [facility] [address] [place], [place] [phone] [facility] * POC-Creatinine (09/05/2018 12:48 PM [employer]Y CLEANING MANAGER) Only the most recent of 2 results within the time period is included. POC-Creatinine 0.4 (L)Comment: TESTED AT 0.6 - 1.3 mg/dL [facility] [address] [facility] [address] POC-EGFR 168 mL/min/1.73M2 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 CLINICAL INDICATION: Osteoporosis. COMPARISON: None available FINDINGS: Evaluation of the left and right femoral necks and lumbar spine was performed utilizing a [employer] Advance bone densitometer. The left femoral neck [...] MD Report Verified Date/Time:07/25/2018 15:48:51 Reading Location: [facility] Radiology Reading Room Procedure Note Interface, External Ris In - 07/25/2018 3:51 PM [employer]Y CLEANING MANAGER FINAL REPORT Bone mineral density study 07/25/2018 at 1259. CLINICAL INDICATION: Osteoporosis. COMPARISON: None available FINDINGS: Evaluation of the left and right femoral necks and lumbar spine was performed utilizing a [employer] Advance bone densitometer. The left femoral neck [...] Report Verified Date/Time: 07/25/2018 15:48:51 Reading Location: [facility] Radiology Reading Room Performing Organization Address City/State/Zipcode Phone Number [facility] * ED ECG Interpretation (05/23/2018 1:18 [...] CDT) Specimen Narrative Performed At FINAL REPORT [facility] Chest one view INDICATION: Shortness of breath COMPARISON: 11/05/2016 IMPRESSION: Previously seen right upper lobe nodularity is not apparent on this study. There are coarsened interstitial markings. No focal consolidation, edema, pleural effusion, or pneumothorax is seen. The cardiomediastinal silhouette is unremarkable. The bones appear intact. Signed: Eric Velazquez MD Report Verified Date/Time:05/23/2018 12:16:57 Reading Location: [facility] Radiology Reading Room Procedure Note Interface, [...] Report Verified Date/Time: 05/23/2018 12:16:57 Reading Location: [facility] Radiology Reading Room Performing Organization Address City/[facility] Phone Number [facility] * Troponin I (05/23/2018 11:17 AM CDT) Troponin I <0.01 0.00 - 0.03 ng/mL [facility] Specimen Blood Narrative Performed At Troponin I (TnI) levels must be interpreted in the context of the presenting [facility] symptoms and the clinical findings. Elevated TnI levels indicate myocardial [facility] damage, but are not specific for ischemic heart disease. Elevated TnI levels are seen in patients with other cardiac conditions (including myocarditis and congestive heart failure), and slight TnI elevations occur in patients with other conditions, including sepsis, renal failure, acidosis, acute neurological disease, and persistent tachyarrhythmia. Performing Organization Address City/[facility]/Zipcode Phone Number [place] [phone] [place] [address] MEDICAL CENTER * Creatine Kinase (CK), Total and MB (05/23/2018 11:17 AM CDT) Total CK 115 29 - 200 U/L [facility] CK-MB 1.5 0.0 - 6.6 ng/mL [facility] MB Relative Index 1.3 % [facility] Specimen Blood Narrative Performed At CK-MB Reference Range: [facility] <6.7Normal [facility] 6.7-10.0Borderline >10.0 Abnormal Performing Organization Address City/State/Zipcode Phone Number [facility] [address] [place] [address] [facility] * ECG 12 lead (05/23/2018 10:42 AM CDT) Specimen Narrative Performed At Ventricular Rate 74 BPM [facility] Atrial Rate 74 BPM P-R Interval 154 ms QRS Duration 92 ms Q-T Interval 424 ms QTC Calculation(Bazett) 470 ms P [place] 45 degrees R [place] -20 degrees T [place] 68 degrees Normal sinus rhythm Possible Left atrial enlargement Left ventricular hypertrophy Abnormal ECG Confirmed by MD Vj, Chiquita ([id number]) on 05/23/2018 10:07:49 PM Procedure Note Interface, External Ris In - 05/23/2018 10:07 PM CDT Ventricular Rate 74 BPM Atrial Rate 74 BPM P-R Interval 154 ms QRS Duration 92 ms Q-T Interval 424 ms QTC Calculation(Bazett) 470 ms P [place] 45 degrees R [place] -20 degrees T [place] 68 degrees Normal sinus rhythm Possible Left atrial enlargement Left ventricular hypertrophy Abnormal ECG Confirmed by MD Vj, Chiquita ([id number]) on 05/23/2018 10:07:49 PM Performing Organization Address City/State/Zipcode Phone Number JUANCARLOS NARAYANAN after 01/28/2018 Insurance Payer Benefit Subscriber ID Type Phone Address Plan / Group [employer]UE [employer] BCBS OS xxxxxxxxxxxxxxx PPO [phone] [address] POS/PPO/[place] [address] O CARE IMPROVEMENT MEDICARE CARE xxxxxxxxx MGD CARE IMPROVEMEN T PLUS Advance Directives For more information, please contact: [facility] [address] [place] [address] Date Inactivated Comments Code Status Date Activated 12/11/2018 5:15 PM Full Code 11/29/2018 3:39 AM This code status was determined by: Patient 04/27/2016 4:08 PM Full Code 04/27/2016 6:18 AM This code status was determined by: Patient
[2019-01-29] MEDS ORDERED: ONDANSETRON HCL INJ 2MG/ML 2ML 2 MG/ML VIAL IV STA (06:35)
[2019-01-29] MEDS ORDERED: MORPHINE SULFATE 2 MG/ML SYR 1ML IV STA (06:35)
[2019-01-29] MEDS ORDERED: MORPHINE SULFATE INJ 4 MG/ML INJ 1ML IV NR (06:45)
[2019-01-29] MEDS ORDERED: PANTOPRAZOLE 40 MG 10ML VIAL IV STA (07:00)
[2019-01-29 07:03] LABS: BASOPHILS % 0.3 % (0.0-1.0); EOSINOPHILS % 0.1 % (0.0-6.0); HEMATOCRIT 28.8 % (34.2-44.1); LYMPHOCYTES # (AUTO) 0.4 (1.0-3.2); LYMPHOCYTES % 4.7 % (18.0-39.1); MEAN CORPUSCULAR HEMOGLOBIN 35.7 pg (28-32); MEAN CORPUSCULAR HGB CONC 34.7 g/dL (31-35); MEAN CORPUSCULAR VOLUME 102.9 fL (81-99); MONOCYTES # (AUTO) 0.8 (0.2-0.8); MONOCYTES % 10.5 % (4.4-11.3); NEUTROPHILS # (AUTO) 6.5 (2.1-6.9); NEUTROPHILS % 83.6 % (38.7-80.0); PLATELET COUNT 57 x10e3/uL (140-360); RED CELL DISTRIBUTION WIDTH 16.5 % (11.7-14.4)
[2019-01-29 07:22] LABS: ALANINE AMINOTRANSFERASE 28 IU/L (0-55); ALBUMIN 2.7 g/dL (3.5-5.0); ALBUMIN/GLOBULIN RATIO 0.7 (0.8-2.0); ALKALINE PHOSPHATASE 130 IU/L (40-150); ANION GAP 10.5 mmol/L (8-16); BLOOD UREA NITROGEN 17 mg/dL (7-26); BUN/CREATININE RATIO 27 (6-25); CALCIUM 8.9 mg/dL (8.4-10.2); CARBON DIOXIDE 21 mmol/L (22-29); CHLORIDE 100 mmol/L (98-107); CREATINE KINASE 37 IU/L (29-168); CREATININE, SERUM 0.63 mg/dL (0.57-1.11); EST GLOMERULAR FILTRATION RATE > 60 ML/MIN (60-); GLUCOSE 98 mg/dL (74-118); LIPASE 23 U/L (8-78); MAGNESIUM 1.4 MG/DL (1.3-2.1); POTASSIUM 4.5 mmol/L (3.5-5.1); SODIUM 127 mmol/L (136-145)
[2019-01-29 07:24] LABS: INR 1.87; PROTHROMBIN TIME 22.2 seconds (11.9-14.5)
[2019-01-29 07:25] LABS: PARTIAL THROMBOPLASTIN TIME 48.8 seconds (23.8-35.5)
--- NOTE | 2019-01-29 07:25 | NUR ---
REPORT GIVEN TO CRISTINA AGUILAR
[2019-01-29 07:45] LABS: BILIRUBIN,URINE LARGE (NEGATIVE); CLARITY,URINE CLEAR (CLEAR); COLOR,URINE ORANGE (YELLOW); KETONES,URINE 1+ (NEGATIVE); LEUKOCYTE ESTERASE ,URINE NEGATIVE (NEGATIVE); NITRITE,URINE POSITIVE (NEGATIVE); PROTEIN,URINE DIPSTICK TRACE (NEGATIVE); URINE UROBILINOGEN 1 mg/dL (0.2 - 1)
--- NOTE | 2019-01-29 08:15 | Diagnostic Imaging Report ---
EXAMINATION: CHEST SINGLE (PORTABLE) INDICATION: Abdominal pain. COMPARISON: Chest radiograph 01/10/2019. FINDINGS: TUBES and LINES: None. LUNGS: Lungs are not well inflated. There is no evidence of pneumonia or pulmonary edema. PLEURA: No pleural effusion or pneumothorax. HEART AND MEDIASTINUM: The cardiomediastinal silhouette is unremarkable. BONES AND SOFT TISSUES: No acute osseous abnormality. UPPER ABDOMEN: No free air under the diaphragm. IMPRESSION: No acute radiographic abnormality. Signed by: Dr. Yvan Reilly MD on 01/29/2019 8:12 AM
--- NOTE | 2019-01-29 08:24 | Diagnostic Imaging Report ---
EXAMINATION: CT of the abdomen and pelvis without contrast. TECHNIQUE: Spiral CT images of the abdomen and pelvis were performed from the lung bases to the lesser trochanters without administration of intravenous or oral contrast. Lack of IV contrast evaluation of visceral and vascular structures. Coronal and sagittal reformatted images were obtained. COMPARISON: CT abdomen and pelvis without contrast 01/12/2019. CLINICAL HISTORY:Abdominal pain. DISCUSSION: LOWER THORAX:Unremarkable. HEPATOBILIARY: Cirrhotic morphology to the liver. Dystrophic calcifications in the left lobe. No intrahepatic biliary ductal dilatation. Status post cholecystectomy. SPLEEN: Splenomegaly measuring 16.8 cm. PANCREAS: No focal masses or ductal dilatation. ADRENALS: No adrenal nodules. KIDNEYS/URETERS: Punctate nonobstructing bilateral lower and left upper pole renal stones are unchanged. No hydronephrosis or evidence of mass. PELVIC ORGANS/BLADDER: Decompressed bladder. PERITONEUM/RETROPERITONEUM: Similar appearance of small to moderate volume ascites. No evidence of free air. LYMPH NODES: No pelvic sidewall or retroperitoneal lymphadenopathy. Unchanged mildly prominent portacaval and mayra hepatis lymph nodes. VESSELS: There are scattered atherosclerotic calcifications in the aorta and branch vessels. Large esophageal varices are noted. GI TRACT: No evidence of bowel obstruction or wall thickening. BONES AND SOFT TISSUE: No acute osseous abnormality. No suspicious lytic or blastic lesion. IMPRESSION: Cirrhosis with findings of portal hypertension including splenomegaly, ascites, and large esophageal varices. Signed by: Dr. Yvan Reilly MD on 01/29/2019 8:21 AM
[2019-01-29] MEDS ORDERED: CEFTRIAXONE SOD 1 GM/NS 50 ML 50 ML IV ONE (08:30)
--- NOTE | 2019-01-29 08:34 | Diagnostic Imaging Report ---
CT BRAIN WO HISTORY: Head pain COMPARISON: MRI of the brain 10/07/2018 TECHNIQUE: Noncontrast axial scans were obtained from skull base to the vertex. Coronal and sagittal reconstructions obtained from the axial data. One or more of the following dose reduction techniques were used: Automated exposure control, adjustment of the mA and/or kV according to patient size, and/or utilization of iterative reconstruction technique. DISCUSSION: Scalp/Skull: Unremarkable. Brain sulci: Appropriate for patient's age. Ventricles: Normal in size and configuration. No hydrocephalus. Extra-axial spaces: No masses or fluid collections. Mild carotid siphon calcifications are present. Parenchyma: Mild to moderate bilateral deep and periventricular white matter hypodensities are likely chronic microvascular ischemic changes. Otherwise, no mass, hemorrhage, or large vascular territory acute infarct. Dural sinuses: No abnormal densities. Sellar/Suprasellar region: Intact. Skull base: Intact. Incidental findings: None. IMPRESSION: 1. No acute intracranial abnormalities. 2. Mild to moderate supratentorial chronic microvascular ischemic change. Signed by: Dr. Gilberto Cosme M.D. on 01/29/2019 8:31 AM
[2019-01-29 08:36] LABS: BACTERIA,URINE FEW /HPF; EPITHELIAL CELLS,URINE MANY /LPF
--- NOTE | 2019-01-29 09:41 | NUR ---
Patient resting comfortably at this time. Will continue to monitor patient.
[2019-01-29 09:57] VITALS: BP 118/61
== END 2019-01-29 10:08 | disposition home or self-care (01) ==
LOC: ER 06:18
DX: N30.01 Acute cystitis with hematuria (principal); I10 Essential (primary) hypertension; K74.60 Unspecified cirrhosis of liver; Z85.05 Personal history of malignant neoplasm of liver; D64.9 Anemia, unspecified
CPT/HCPCS: 36415; 70450; 71045; 74176; 80053; 81001; 82140; 82550; 82553; 83605; 83690; 83735; 84484; 85025; 85610; 85730; 86850; 86870; 86880; 86900; 86905; 87040; 93005; 99001; 99284; C9113; J0696; J2270; J2405

== ENCOUNTER → 2020-10-21 | Outpatient (CLI) | payer MEDICARE, BC | LOC: DX 13:00 | PROVIDERS: ATTEND Internal Medicine | DX: Z12.31 Encounter for screening mammogram for malignant neoplasm of breast (principal); M85.80 Other specified disorders of bone density and structure, unspecified site | CPT/HCPCS: 77067; 77080 ==

== ENCOUNTER → 2021-02-20 | Outpatient (CLI) | payer MEDICARE, BC | LOC: DX 09:25 | PROVIDERS: ATTEND Internal Medicine | DX: R13.12 Dysphagia, oropharyngeal phase (principal) | CPT/HCPCS: 74220 ==

== ENCOUNTER → 2021-03-25 | Outpatient (CLI) | payer MEDICARE, BC | LOC: RAD 14:55 | PROVIDERS: ATTEND Otolaryngology | DX: J45.20 Mild intermittent asthma, uncomplicated (principal); R05 Cough | CPT/HCPCS: 71046 ==

== ENCOUNTER → 2021-12-07 | Outpatient (CLI) | payer MEDICARE, BC | LOC: MAMMO 10:40 | PROVIDERS: ATTEND Internal Medicine | DX: Z12.31 Encounter for screening mammogram for malignant neoplasm of breast (principal); M54.2 Cervicalgia; M54.50 Low back pain, unspecified | CPT/HCPCS: 72050; 72110; 77067 ==

== ENCOUNTER 2021-12-24 17:54 | Emergency (ER) | payer MEDICARE, BC ==
[~2021-12-24] VITALS: Ht 157.5 cm; Wt 88.5 kg
[2021-12-24] MEDS ORDERED: Morphine 4mg Syringe 4 MG/ML INJ IV STA (18:16)
[2021-12-24] MEDS ORDERED: ONDANSETRON HCL INJ 2MG/ML 2ML 2 MG/ML VIAL IV STA (18:16)
[2021-12-24 18:38] LABS: BASOPHILS % 0.4 % (0.0-1.0); EOSINOPHILS % 0.2 % (0.0-6.0); HEMATOCRIT 38.4 % (34.2-44.1); HEMOGLOBIN 12.6 g/dL (12.0-16.0); LYMPHOCYTES # (AUTO) 0.9 (1.0-3.2); LYMPHOCYTES % 7.8 % (18.0-39.1); MEAN CORPUSCULAR HEMOGLOBIN 29.2 pg (28-32); MEAN CORPUSCULAR HGB CONC 32.8 g/dL (31-35); MEAN CORPUSCULAR VOLUME 89.1 fL (81-99); MONOCYTES # (AUTO) 0.6 (0.2-0.8); MONOCYTES % 5.3 % (4.4-11.3); NEUTROPHILS # (AUTO) 9.5 (2.1-6.9); NEUTROPHILS % 84.8 % (38.7-80.0); PLATELET COUNT 187 x10e3/uL (140-360); RED BLOOD COUNT 4.31 x10e6/uL (3.6-5.1); RED CELL DISTRIBUTION WIDTH 13.3 % (11.7-14.4)
[2021-12-24] MEDS ORDERED: HYDROMORPHONE 1MG/1ML INJ IV STA (18:53)
[2021-12-24 18:54] LABS: INR 0.88; PROTHROMBIN TIME 12.8 seconds (11.9-14.5)
[2021-12-24 18:58] LABS: ALBUMIN 4.5 g/dL (3.5-5.0); ALBUMIN/GLOBULIN RATIO 1.1 (0.8-2.0); ANION GAP 18.3 mmol/L (8-16); CALCIUM 9.5 mg/dL (8.4-10.2); CREATININE, SERUM 1.46 mg/dL (0.57-1.11); POTASSIUM 4.3 mmol/L (3.5-5.1)
[2021-12-24] MEDS ORDERED: ONDANSETRON HCL INJ 2MG/ML 2ML 2 MG/ML VIAL ONE (19:11)
[2021-12-24 20:04] LABS: CLARITY,URINE HAZY (CLEAR); COLOR,URINE STRAW (YELLOW); KETONES,URINE 2+ (NEGATIVE); LEUKOCYTE ESTERASE ,URINE NEGATIVE (NEGATIVE); NITRITE,URINE NEGATIVE (NEGATIVE); PROTEIN,URINE DIPSTICK 2+ (NEGATIVE); URINE UROBILINOGEN 0.2 mg/dL (0.2 - 1)
[2021-12-24 20:16] LABS: BACTERIA,URINE MODERATE /HPF; EPITHELIAL CELLS,URINE FEW /LPF; RBC,URINE 21-50 /HPF (0-5)
[2021-12-24 23:18] VITALS: BP 136/86
== END 2021-12-24 23:05 | disposition other institution (70) ==
LOC: ER 18:14
DX: R10.12 Left upper quadrant pain (principal); K65.9 Peritonitis, unspecified; R11.2 Nausea with vomiting, unspecified; N17.9 Acute kidney failure, unspecified; N39.0 Urinary tract infection, site not specified; I10 Essential (primary) hypertension; D64.9 Anemia, unspecified; Z20.822 Contact with and (suspected) exposure to COVID-19; Z94.4 Liver transplant status; Z85.05 Personal history of malignant neoplasm of liver
CPT/HCPCS: 36415; 74176; 80053; 81001; 83690; 85025; 85610; 99284; J1170; J2270; J2405; J2543; U0002

== ENCOUNTER 2022-05-18 00:09 | Emergency (ER) | payer BC, MEDICARE ==
[~2022-05-18] VITALS: Ht 157.5 cm; Wt 88.5 kg
[~2022-05-18 00:09] MED LIST changes: +CEFDINIR300 MG PO
[2022-05-18] MEDS ORDERED: ONDANSETRON HCL 4 MG ORAL DISINTEGRATING TAB PO STA (00:12)
[2022-05-18] MEDS ORDERED: KETOROLAC TROMETHAMINE 60 MG/2 ML VIAL IM ONE (00:15)
[2022-05-18] MEDS ORDERED: KETOROLAC TROMETHAMINE 60 MG/2 ML VIAL ONE (00:27)
[2022-05-18] MEDS ORDERED: ONDANSETRON HCL 4 MG ORAL DISINTEGRATING TAB ONE (00:28)
[2022-05-18 00:49] LABS: CLARITY,URINE CLOUDY (CLEAR); COLOR,URINE STRAW (YELLOW); KETONES,URINE 1+ (NEGATIVE); LEUKOCYTE ESTERASE ,URINE NEGATIVE (NEGATIVE); NITRITE,URINE NEGATIVE (NEGATIVE); PROTEIN,URINE DIPSTICK 1+ (NEGATIVE); URINE UROBILINOGEN 0.2 mg/dL (0.2 - 1)
[2022-05-18 00:50] LABS: BACTERIA,URINE MODERATE /HPF; EPITHELIAL CELLS,URINE MODERATE /LPF; RBC,URINE >50 /HPF (0-5); WBC,URINE (MAN) 0-5 /HPF (0-5)
[2022-05-18] MEDS ORDERED: SODIUM CHLORIDE 0.9% 1000ML 1,000 ML IV STA (01:24)
[2022-05-18] MEDS ORDERED: CIPROFLOXACIN 400 MG/D5W 200ML 200 ML IV SCH (01:30)
[2022-05-18] MEDS ORDERED: Morphine 4mg INJECTION 4 MG/ML INJ IV PRN (01:30)
[2022-05-18] MEDS ORDERED: SODIUM CHLORIDE 0.9% 1000ML 1,000 ML IV SCH (01:30)
[2022-05-18 01:47] LABS: BASOPHILS % 0.5 % (0.0-1.0); EOSINOPHILS # (AUTO) 0.1 (0.0-0.4); EOSINOPHILS % 1.4 % (0.0-6.0); HEMATOCRIT 36.2 % (34.2-44.1); HEMOGLOBIN 11.2 g/dL (12.0-16.0); LYMPHOCYTES # (AUTO) 0.8 (1.0-3.2); LYMPHOCYTES % 18.1 % (18.0-39.1); MEAN CORPUSCULAR HEMOGLOBIN 28.9 pg (28-32); MEAN CORPUSCULAR HGB CONC 30.9 g/dL (31-35); MEAN CORPUSCULAR VOLUME 93.3 fL (81-99); MONOCYTES # (AUTO) 0.5 (0.2-0.8); MONOCYTES % 11.5 % (4.4-11.3); NEUTROPHILS # (AUTO) 2.8 (2.1-6.9); NEUTROPHILS % 62.9 % (38.7-80.0); PLATELET COUNT 146 x10e3/uL (140-360); RED BLOOD COUNT 3.88 x10e6/uL (3.6-5.1); RED CELL DISTRIBUTION WIDTH 13.2 % (11.7-14.4)
[2022-05-18 02:04] LABS: ALBUMIN 4.2 g/dL (3.5-5.0); ALBUMIN/GLOBULIN RATIO 1.3 (0.8-2.0); ANION GAP 15.2 mmol/L (8-16); CALCIUM 9.4 mg/dL (8.4-10.2); CREATININE, SERUM 1.28 mg/dL (0.57-1.11); POTASSIUM 4.2 mmol/L (3.5-5.1)
[2022-05-18] MEDS ORDERED: PROMETHAZINE 25MG/ NS 50ML (IV) IV STA (03:30)
[2022-05-18 04:05] VITALS: BP 120/63
[2022-05-18] MEDS ORDERED: ONDANSETRON HCL INJ 2MG/ML 2ML 2 MG/ML VIAL IV PRN (04:30)
== END 2022-05-18 04:30 | disposition other institution (70) ==
LOC: ER 00:20
DX: R10.32 Left lower quadrant pain (principal); N13.8 Other obstructive and reflux uropathy; N13.2 Hydronephrosis with renal and ureteral calculous obstruction; N39.0 Urinary tract infection, site not specified; I10 Essential (primary) hypertension; D64.9 Anemia, unspecified; K76.9 Liver disease, unspecified; Z85.05 Personal history of malignant neoplasm of liver; Z94.4 Liver transplant status; Z20.822 Contact with and (suspected) exposure to COVID-19
CPT/HCPCS: 0223U; 36415; 74176; 80053; 81001; 83690; 85025; 99284; J0744; J1885; J2270; J2405; J2543; J2550; J7030; Q0162; U0002

== ENCOUNTER 2022-06-24 07:18 | Inpatient (IN) | payer BC, MEDICARE ==
[~2022-06-24] VITALS: Ht 157.5 cm; Wt 79.4 kg
[2022-06-24] MEDS ORDERED: ONDANSETRON HCL INJ 2MG/ML 2ML 2 MG/ML VIAL IV STA (07:33)
[2022-06-24] MEDS ORDERED: KETOROLAC TROMETHAMINE 30 MG/ML VIAL IV STA (07:33)
[2022-06-24] MEDS ORDERED: SODIUM CHLORIDE 0.9% 1000ML 1,000 ML IV SCH ×2 (07:45)
[2022-06-24] MEDS ORDERED: SODIUM CHLORIDE 0.9% 1000ML 1,000 ML ONE (07:51)
[2022-06-24] MEDS ORDERED: ONDANSETRON HCL INJ 2MG/ML 2ML 2 MG/ML VIAL ONE (07:51)
[2022-06-24] MEDS ORDERED: KETOROLAC TROMETHAMINE 30 MG/ML VIAL ONE (07:51)
[2022-06-24 07:53] LABS: BASOPHILS # (AUTO) 0.1 (0.0-0.1); BASOPHILS % 0.7 % (0.0-1.0); EOSINOPHILS # (AUTO) 0.1 (0.0-0.4); HEMATOCRIT 36.9 % (34.2-44.1); HEMOGLOBIN 12.2 g/dL (12.0-16.0); LYMPHOCYTES % 14.8 % (18.0-39.1); MEAN CORPUSCULAR HEMOGLOBIN 28.8 pg (28-32); MEAN CORPUSCULAR HGB CONC 33.1 g/dL (31-35); MEAN CORPUSCULAR VOLUME 87.2 fL (81-99); MONOCYTES # (AUTO) 0.7 (0.2-0.8); NEUTROPHILS # (AUTO) 4.7 (2.1-6.9); NEUTROPHILS % 68.8 % (38.7-80.0); PLATELET COUNT 150 x10e3/uL (140-360); RED BLOOD COUNT 4.23 x10e6/uL (3.6-5.1); RED CELL DISTRIBUTION WIDTH 12.8 % (11.7-14.4)
[2022-06-24 08:06] LABS: ALBUMIN 4.6 g/dL (3.5-5.0); ALBUMIN/GLOBULIN RATIO 1.2 (0.8-2.0); ANION GAP 15.9 mmol/L (8-16); CALCIUM 9.8 mg/dL (8.4-10.2); CREATININE, SERUM 1.3 mg/dL (0.57-1.11); POTASSIUM 3.9 mmol/L (3.5-5.1)
[2022-06-24 08:08] LABS: CLARITY,URINE CLEAR (CLEAR); COLOR,URINE YELLOW (YELLOW); KETONES,URINE NEGATIVE (NEGATIVE); LEUKOCYTE ESTERASE ,URINE NEGATIVE (NEGATIVE); NITRITE,URINE NEGATIVE (NEGATIVE); PROTEIN,URINE DIPSTICK 1+ (NEGATIVE); URINE UROBILINOGEN 0.2 mg/dL (0.2 - 1)
[2022-06-24 08:11] LABS: BACTERIA,URINE MODERATE /HPF; EPITHELIAL CELLS,URINE MODERATE /LPF; RBC,URINE >50 /HPF (0-5)
[2022-06-24] MEDS ORDERED: ONDANSETRON HCL INJ 2MG/ML 2ML 2 MG/ML VIAL IV PRN ×2 (09:00→12:15)
[2022-06-24] MEDS ORDERED: Morphine 4mg INJECTION 4 MG/ML INJ IV PRN (09:00)
[2022-06-24] MEDS: SODIUM CHLORIDE 0.9% 1000ML 1,000 ML IV SCH (09:17)
[2022-06-24] MEDS ORDERED: BENZONATATE 100 MG CAP PO PRN (12:15)
[2022-06-24] MEDS ORDERED: DOCUSATE SODIUM 100 MG CAP PO PRN (12:15)
[2022-06-24] MEDS ORDERED: POTASSIUM CHLORIDE 20 MEQ TAB CR PO PRN (12:15)
[2022-06-24] MEDS ORDERED: DIPHENHYDRAMINE HCL 25 MG CAP PO PRN (12:15)
[2022-06-24] MEDS ORDERED: DEXTROSE 50% SYRINGE 50 ML IV PRN ×2 (12:15→13:00)
[2022-06-24] MEDS ORDERED: MELATONIN 5 MG TABLET PO PRN (12:15)
[2022-06-24] MEDS ORDERED: ACETAMINOPHEN 325 MG TAB PO PRN (12:15)
[2022-06-24] MEDS ORDERED: SIMETHICONE 80 MG CHEW PO PRN (12:15)
[2022-06-24] MEDS ORDERED: LIDOCAINE 4% PATCH TP PRN (12:15)
[2022-06-24] MEDS ORDERED: ALBUTEROL/IPRATROPIUM 3 ML NEB NEB PRN (12:15)
[2022-06-24] MEDS ORDERED: HYDRALAZINE HCL 20 MG/ML VIAL IV PRN (12:15)
[2022-06-24] MEDS ORDERED: LEVOTHYROXINE25 MCG PO (12:32)
[2022-06-24] MEDS ORDERED: CARVEDILOL12.5 MG PO (12:32)
[2022-06-24] MEDS ORDERED: MONTELUKAST SOD10 MG PO (12:32)
[2022-06-24] MEDS ORDERED: FLOMAX0.4 MG PO (12:32)
[2022-06-24] MEDS ORDERED: AMLODIPINE BESY10 MG PO (12:32)
[2022-06-24] MEDS ORDERED: LANTUS 3ML100 UNITS/ SQ (12:32)
[2022-06-24] MEDS ORDERED: HUMALOG JU100 UNIT/1 SQ (12:32)
[2022-06-24] MEDS ORDERED: TACROLIMUS1 MG PO (12:32)
[2022-06-24] MEDS ORDERED: FAMOTIDINE40 MG PO (12:32)
[2022-06-24] MEDS ORDERED: PREDNISONE1 MG PO (12:32)
[2022-06-24] MEDS ORDERED: PREGABALIN150 MG PO (12:32)
[2022-06-24] MEDS: Morphine 2mg Syringe 2 MG/ML SYR IV PRN ×2 (12:36→21:03)
[2022-06-24] MEDS ORDERED: PROPRANOLOL HCL 10 MG TAB PO SCH (14:00)
[2022-06-24] MEDS ORDERED: LACTULOSE SYRUP 20 GM/30 ML UDC PO SCH (15:00)
[2022-06-24] MEDS: TACROLIMUS 1 MG CAP PO SCH (17:00)
[2022-06-24] MEDS ORDERED: RIFAXIMIN 550 MG TABLET PO SCH (17:00)
[2022-06-24 17:17] VITALS: BP 128/75
[2022-06-24 17:23] VITALS: BP 128/75
[2022-06-24] MEDS: INSULIN LISPRO 100 UNIT/1 ML 3ML VIAL SQ SCH ×2 (17:48→20:59)
[2022-06-24] MEDS: CARVEDILOL 12.5 MG TAB PO SCH (17:50)
[2022-06-24 20:00] VITALS: BP 110/67
[2022-06-24] MEDS: TRAZODONE HCL 50 MG TAB PO SCH (20:56)
[2022-06-24 21:00] VITALS: BP 110/67
[2022-06-25] VITALS (8 sets, daily range): BP systolic 111–146; BP diastolic 62–85
[2022-06-25] MEDS: Morphine 2mg Syringe 2 MG/ML SYR IV PRN ×3 (04:30→22:08)
[2022-06-25 04:56] LABS: BASOPHILS % 0.3 % (0.0-1.0); EOSINOPHILS # (AUTO) 0.1 (0.0-0.4); EOSINOPHILS % 1.5 % (0.0-6.0); HEMATOCRIT 32.6 % (34.2-44.1); LYMPHOCYTES # (AUTO) 0.7 (1.0-3.2); MEAN CORPUSCULAR HEMOGLOBIN 28.6 pg (28-32); MEAN CORPUSCULAR HGB CONC 30.7 g/dL (31-35); MEAN CORPUSCULAR VOLUME 93.1 fL (81-99); MONOCYTES # (AUTO) 0.4 (0.2-0.8); MONOCYTES % 11.1 % (4.4-11.3); NEUTROPHILS % 61.2 % (38.7-80.0); PLATELET COUNT 132 x10e3/uL (140-360)
[2022-06-25] MEDS: LEVOTHYROXINE SODIUM 25 MCG TABLET PO SCH (05:06)
[2022-06-25 05:16] LABS: CALCIUM 8.7 mg/dL (8.4-10.2); CREATININE, SERUM 0.86 mg/dL (0.57-1.11)
[2022-06-25] MEDS: SODIUM CHLORIDE 0.9% 1000ML 1,000 ML IV SCH ×3 (05:25→17:55)
[2022-06-25] MEDS: INSULIN LISPRO 100 UNIT/1 ML 3ML VIAL SQ SCH ×4 (07:30→21:50)
[2022-06-25] MEDS: PANTOPRAZOLE SOD 40 MG TABEC PO SCH (07:30)
[2022-06-25] MEDS: TACROLIMUS 1 MG CAP PO SCH ×3 (09:00→21:54)
[2022-06-25] MEDS: TAMSULOSIN HCL 0.4 MG CAP PO SCH (09:00)
[2022-06-25] MEDS: CARVEDILOL 12.5 MG TAB PO SCH ×2 (09:00→17:49)
[2022-06-25] MEDS: PREDNISONE 1 MG PO SCH (09:00)
[2022-06-25] MEDS: MONTELUKAST SODIUM 10 MG TAB PO SCH (09:00)
[2022-06-25] MEDS: AMLODIPINE BESYLATE 10 MG TAB PO SCH (09:00)
[2022-06-25] MEDS: PREGABALIN 75 MG CAP PO SCH (09:00)
[2022-06-25] MEDS ORDERED: MIDAZOLAM HCL 2 MG/2 ML VIAL ONE (12:19)
[2022-06-25] MEDS ORDERED: FENTANYL CITRATE/PF 100MCG/2 ML INJ ONE (12:19)
[2022-06-25] MEDS ORDERED: PROPOFOL IV EMULSION 10 MG/ML 20 ML VIAL ONE (13:03)
[2022-06-25] MEDS ORDERED: ONDANSETRON HCL INJ 2MG/ML 2ML 2 MG/ML VIAL ONE (13:03)
[2022-06-25] MEDS ORDERED: LIDOCAINE HCL 2% LOCAL INJ 5 ML SDV VIAL INJ ONE (13:03)
[2022-06-25] MEDS ORDERED: FAMOTIDINE 20 MG/2 ML VIAL IV ONE (13:03)
[2022-06-25] MEDS ORDERED: POVIDONE IODINE 0.05% 0.05 % ML PO ONE (13:03)
[2022-06-25] MEDS ORDERED: DEXAMETHASONE SOD PHOS INJ 4 MG/ML SDV ONE (13:03)
[2022-06-25] MEDS ORDERED: DIPHENHYDRAMINE HCL INJ 50 MG/ML VIAL ONE (13:03)
[2022-06-25] MEDS ORDERED: HYDROCORTISONE SOD SUCCINATE 100 MG VIAL ONE (13:03)
[2022-06-25] MEDS ORDERED: SEVOFLURANE INHAL SOLN 250 ML PEN BTL ONE (13:03)
[2022-06-25] MEDS ORDERED: IOPAMIDOL 300MG/ML 50ML INFUS..BTL IV ONE (13:51)
[2022-06-25] MEDS ORDERED: ACETAMINOPHEN/CODEINE 300MG - 30MG TAB PO PRN (15:45)
[2022-06-25] MEDS: HYDROCODONE/APAP 5MG-325MG TAB PO PRN (17:50)
[2022-06-25] MEDS: PHENAZOPYRIDINE HCL 100 MG TAB PO PRN (17:50)
[2022-06-25] MEDS: TRAZODONE HCL 50 MG TAB PO SCH (21:54)
[2022-06-25] MEDS: ONDANSETRON HCL INJ 2MG/ML 2ML 2 MG/ML VIAL IV PRN (22:10)
[2022-06-26 00:29] VITALS: BP 129/60
[2022-06-26] MEDS: SODIUM CHLORIDE 0.9% 1000ML 1,000 ML IV SCH ×2 (02:28→09:21)
[2022-06-26] MEDS: Morphine 2mg Syringe 2 MG/ML SYR IV PRN ×2 (02:40→06:42)
[2022-06-26 04:31] VITALS: BP 138/66
[2022-06-26 04:49] LABS: HEMATOCRIT 32.2 % (34.2-44.1); HEMOGLOBIN 9.9 g/dL (12.0-16.0); LYMPHOCYTES # (AUTO) 0.4 (1.0-3.2); LYMPHOCYTES % 10.1 % (18.0-39.1); MEAN CORPUSCULAR HEMOGLOBIN 28.5 pg (28-32); MEAN CORPUSCULAR HGB CONC 30.7 g/dL (31-35); MEAN CORPUSCULAR VOLUME 92.8 fL (81-99); MONOCYTES # (AUTO) 0.2 (0.2-0.8); MONOCYTES % 5.5 % (4.4-11.3); NEUTROPHILS # (AUTO) 3.2 (2.1-6.9); NEUTROPHILS % 81.4 % (38.7-80.0); PLATELET COUNT 125 x10e3/uL (140-360); RED BLOOD COUNT 3.47 x10e6/uL (3.6-5.1); RED CELL DISTRIBUTION WIDTH 12.5 % (11.7-14.4)
[2022-06-26 05:09] LABS: ANION GAP 16.1 mmol/L (8-16); CALCIUM 8.6 mg/dL (8.4-10.2); CREATININE, SERUM 0.92 mg/dL (0.57-1.11); POTASSIUM 4.1 mmol/L (3.5-5.1)
[2022-06-26] MEDS: LEVOTHYROXINE SODIUM 25 MCG TABLET PO SCH (06:06)
[2022-06-26] MEDS: ONDANSETRON HCL INJ 2MG/ML 2ML 2 MG/ML VIAL IV PRN (06:42)
[2022-06-26] MEDS: PANTOPRAZOLE SOD 40 MG TABEC PO SCH (07:30)
[2022-06-26] MEDS: INSULIN LISPRO 100 UNIT/1 ML 3ML VIAL SQ SCH ×3 (07:30→16:30)
[2022-06-26 08:40] VITALS: BP 149/69
[2022-06-26] MEDS: MONTELUKAST SODIUM 10 MG TAB PO SCH (09:00)
[2022-06-26] MEDS: AMLODIPINE BESYLATE 10 MG TAB PO SCH (09:00)
[2022-06-26] MEDS: TACROLIMUS 1 MG CAP PO SCH (09:00)
[2022-06-26] MEDS: CARVEDILOL 12.5 MG TAB PO SCH ×2 (09:00→17:00)
[2022-06-26] MEDS: TAMSULOSIN HCL 0.4 MG CAP PO SCH (09:00)
[2022-06-26] MEDS: PREGABALIN 75 MG CAP PO SCH (09:00)
[2022-06-26] MEDS: PREDNISONE 1 MG PO SCH (09:00)
[2022-06-26] MEDS: HYDROCODONE/APAP 5MG-325MG TAB PO PRN ×2 (09:20→14:30)
[2022-06-26] MEDS: PHENAZOPYRIDINE HCL 100 MG TAB PO PRN (09:21)
[2022-06-26 09:23] VITALS: BP 149/69
[2022-06-26 12:43] VITALS: BP 114/63
[2022-06-26] MEDS ORDERED: KETOROLAC TROMETHAMINE 30 MG/ML VIAL IV ONE (15:00)
[2022-06-26] MEDS ORDERED: CEFTIN PO (16:25)
[2022-06-26] MEDS ORDERED: PYRIDIUM200 MG PO (16:26)
[2022-06-26] MEDS ORDERED: DITROPAN XL5 MG PO (16:26)
[2022-06-26] MEDS ORDERED: TYLENOL 3 PO (16:27)
== END 2022-06-26 18:20 | disposition home or self-care (01) | DRG 660 ==
LOC: ER 07:26 → ERHOLD 08:55 → MED/SURG 16:25
PROVIDERS: ADMIT Internal Medicine; ATTEND Internal Medicine
PROC: BT141ZZ Fluoroscopy of Kidneys, Ureters and Bladder using Low Osmolar Contrast (ICD-10-PCS; 2022-06-25)
PROC: 0TC08ZZ Extirpation of Matter from Right Kidney, Via Natural or Artificial Opening Endoscopic (ICD-10-PCS; 2022-06-25)
PROC: 0TF4XZZ Fragmentation in Left Kidney Pelvis, External Approach (ICD-10-PCS; principal; 2022-06-25 14:13)
PROC: 0T788DZ Dilation of Bilateral Ureters with Intraluminal Device, Via Natural or Artificial Opening Endoscopic (ICD-10-PCS; 2022-06-25 14:13)
DX: N13.2 Hydronephrosis with renal and ureteral calculous obstruction (principal); Z94.0 Kidney transplant status; N17.9 Acute kidney failure, unspecified; D69.6 Thrombocytopenia, unspecified; I10 Essential (primary) hypertension; D64.9 Anemia, unspecified; E03.9 Hypothyroidism, unspecified; R31.0 Gross hematuria; N39.46 Mixed incontinence; N35.92 Unspecified urethral stricture, female; N81.10 Cystocele, unspecified; N36.41 Hypermobility of urethra; N95.2 Postmenopausal atrophic vaginitis; Z91.041 Radiographic dye allergy status; D72.819 Decreased white blood cell count, unspecified; Z87.442 Personal history of urinary calculi; Z20.822 Contact with and (suspected) exposure to COVID-19
CPT/HCPCS: 0223U; 36415; 74176; 80048; 80053; 81001; 82948; 83735; 85025; 87086; 88300; 94799; 99284; C1758; C1769; C2617; J0696; J1100; J1200; J1720; J1885; J2001; J2250; J2270; J2405; J3010; J7030; J7507

== ENCOUNTER 2023-01-09 21:22 | Emergency (ER) | payer MEDICARE, BC ==
[~2023-01-09] VITALS: Ht 157.5 cm; Wt 79.4 kg
[~2023-01-09 21:22] MED LIST changes: +ACETAMINOPHEN-1 EAC4 PO; +AMLODIPINE BESY10 MG PO; +CARVEDILOL12.5 MG PO; +CEFTIN PO; +DITROPAN XL5 MG PO; +FAMOTIDINE40 MG PO; +FLOMAX0.4 MG PO; +HUMALOG JU100 UNIT/1 SQ; +LANTUS 3ML100 UNITS/ SQ; +LEVOTHYROXINE25 MCG PO; +MONTELUKAST SOD10 MG PO; +ONDANSETRON ODT4 MG PO; +PREDNISONE1 MG PO; +PREGABALIN150 MG PO; +PYRIDIUM200 MG PO; +TACROLIMUS1 MG PO; +TYLENOL 3 PO
[2023-01-09] MEDS ORDERED: DOXYCYCLINE HY100 MG PO (23:57)
[2023-01-10] VITALS: BP 141/86; PULSE 96; RESP 16; TEMP 98.4; O2SAT 100
== END 2023-01-10 00:05 | disposition home or self-care (01) ==
LOC: ER 21:26
DX: R05.9 Cough, unspecified (principal); J40 Bronchitis, not specified as acute or chronic; E11.9 Type 2 diabetes mellitus without complications; Z20.822 Contact with and (suspected) exposure to COVID-19
CPT/HCPCS: 71045; 83518; 87070; 99283; U0002

== ENCOUNTER → 2023-09-09 | Outpatient (REF) | payer MEDICARE, BC ==
[~2023-09-09] MED LIST changes: +DOXYCYCLINE HY100 MG PO
== END ==
LOC: RAD 15:42
PROVIDERS: ATTEND Internal Medicine
DX: M47.812 Spondylosis without myelopathy or radiculopathy, cervical region (principal); M19.042 Primary osteoarthritis, left hand; M19.041 Primary osteoarthritis, right hand; M17.11 Unilateral primary osteoarthritis, right knee
CPT/HCPCS: 72050

== ENCOUNTER → 2023-09-16 | Outpatient (REF) | payer MEDICARE, BC | LOC: DX 11:37 | PROVIDERS: ATTEND Internal Medicine | DX: Z13.820 Encounter for screening for osteoporosis (principal); M15.9 Polyosteoarthritis, unspecified | CPT/HCPCS: 77080 ==

== ENCOUNTER 2024-07-17 13:00 | Outpatient (RCR) | payer MEDICARE, BC ==
[~2024-07-17 13:00] MED LIST changes: +AUGMENTIN 500-1 EACH PO; +KETOROLAC TROME10 MG PO
== END 2024-07-21 ==
LOC: PT 13:00
PROVIDERS: ATTEND Internal Medicine
DX: M43.06 Spondylolysis, lumbar region (principal); M62.81 Muscle weakness (generalized); M54.50 Low back pain, unspecified

== ENCOUNTER → 2024-08-21 | Outpatient (RCR) | payer MEDICARE, BC | LOC: PT 07-25 08:16 | PROVIDERS: ATTEND Internal Medicine | DX: M43.06 Spondylolysis, lumbar region (principal); M54.50 Low back pain, unspecified; M62.81 Muscle weakness (generalized) ==

== ENCOUNTER → 2024-09-21 | Outpatient (RCR) | payer MEDICARE, BC | LOC: PT 08-24 07:44 | PROVIDERS: ATTEND Internal Medicine | DX: M43.06 Spondylolysis, lumbar region (principal); M62.81 Muscle weakness (generalized); M54.50 Low back pain, unspecified ==

== ENCOUNTER 2024-10-18 14:00 | Outpatient (RCR) | payer BC, MEDICARE | END 2024-10-19 | LOC: PT 14:00 | PROVIDERS: ATTEND Internal Medicine | DX: M47.816 Spondylosis without myelopathy or radiculopathy, lumbar region (principal) ==

== ENCOUNTER → 2025-05-23 | Outpatient (REF) | payer BC, MEDICARE | LOC: MAMMO 14:02 | PROVIDERS: ATTEND Internal Medicine | DX: Z12.31 Encounter for screening mammogram for malignant neoplasm of breast (principal) | CPT/HCPCS: 77067 ==